=== PATIENT | male | born 1940 | race Caucasian/White ===

== ENCOUNTER → 2018-08-05 06:58 | Outpatient (CLI) | payer OTHER, SELFPAY ==
[2018-08-05 07:44] LABS: AST(SGOT) 20 U/L (15-37); Alanine Aminotransfer ALT/SGPT 23 U/L (16-61); Albumin, Serum 3.4 g/dL (3.2-5.0); Alkaline Phosphatase 72 U/L (45-117); Anion Gap 6 (5-15); BUN 19 mg/dL (7-18); BUN/Creat Ratio 13.9 RATIO (10-20); Bilirubin, Direct 0.34 mg/dL (0.00-0.30); Calcium,Total 8.9 mg/dL (8.5-10.1); Chloride 104 mmol/L (98-107); Cholesterol 168 mg/dL (200); Creatinine, Serum 1.37 mg/dL (0.70-1.30); EST Glomerular Filtration Rate 54 mL/min (>60); Est Glom Filt Rate - Afr Amer 65 mL/min (>60); Globulin 3.4 g/dL (2.2-4.2); Glucose 85 mg/dL (74-106); High Density Lipoprotein 41 mg/dL; Magnesium 2.1 mg/dL (1.6-2.6); PSA,Total - Annual Screen 4.38 ng/mL (0.00-4.00); Potassium 3.5 mmol/L (3.5-5.1); Protein, Total 6.8 g/dL (6.4-8.2); Sodium Level 143 mmol/L (136-145); Triglycerides 99 mg/dL; Very Low Density Lipoprotein 20 mg/dL (5-40)
== END ==
PROVIDERS: Family Provider Family Medicine; PCP Family Medicine; Referring Provider Internal Medicine Cardiovascular Disease; Visit Provider Internal Medicine Cardiovascular Disease
DX: E78.5 Hyperlipidemia, unspecified (principal); I10 Essential (primary) hypertension
CPT/HCPCS: 36415; 80048; 80061; 80076; 83735; 84153; G0103

== ENCOUNTER → 2018-08-07 07:44 | Outpatient (CLI) | payer OTHER, SELFPAY ==
--- NOTE | 2018-08-07 07:47 | ECHOD_ITS ---
Reason For Study: Arrhythmia Procedure This was a 2D Doppler, Color Flow transthoracic echocardiogram. Exam performed in department. Left Ventricle Normal LV size. Left ventricular systolic function is normal. The estimated ejection fraction is 65 %. Stage 1 diastolic dysfunction. No regional wall motion abnormalities noted. Right Ventricle Normal RV size. Normal systolic function. Atria Normal left atrium. Normal right atrium. Mitral Valve Normal mitral valve. Mild (1+) eccentric mitral valve insufficiency. Tricuspid Valve Normal tricuspid valve. Mild (1+) tricuspid valve insufficiency. Pulmonary artery systolic pressure is 24 mmHg. Aortic Valve Trisinus/trileaflet aortic valve. Mild focal aortic valve calcification. Pulmonic Valve Normal pulmonic valve. Great Vessels Normal aortic root. The pulmonary artery is normal size. Normal inferior vena cava. Pericardium/Pleural No pericardial effusion. MMode/2D Measurements & Calculations LVIDd: 4.6 cm IVSd: 1.2 cm Ao root diam: 3.5 cm LVIDs: 2.8 cm LVPWd: 1.0 cm LA dimension: 3.4 cm RVDd: 3.2 cm FS: 39.8 % LAV(MOD-bp): 49.9 ml LA A4 area: 15.2 cm2 RA A4 area: 16.9 cm2 LAV(MOD-bp) Indexed: 26.3 ml/m2 LAV(MOD-sp2): 70.2 ml LAV(MOD-sp4): 37.1 ml Time Measurements MV dec time: 0.24 sec Doppler Measurements & Calculations MV E max larry: 63.6 cm/sec Lat Peak E' Larry: 6.2 cm/sec Med Peak E' Larry: 7.7 cm/sec MV A max larry: 91.7 cm/sec E/E' lat: 10.3 E/E' med: 8.3 MV E/A: 0.69 MV V2 max: 92.5 cm/sec MV P1/2t max larry: 78.0 cm/sec Ao V2 max: 131.4 cm/sec MV max P.4 mmHg MV P1/2t: 82.4 msec Ao max P.9 mmHg MV V2 mean: 47.4 cm/sec MV dec slope: 277.4 cm/sec2 Ao V2 mean: 93.2 cm/sec MV mean P.0 mmHg MVA(P1/2t): 2.7 cm2 Ao mean P.8 mmHg MV V2 VTI: 30.4 cm Ao V2 VTI: 30.1 cm LV V1 max: 86.8 cm/sec MR max larry: 578.1 cm/sec PA V2 max: 79.9 cm/sec LV V1 max P.0 mmHg MR max P.7 mmHg LV V1 mean P.0 mmHg MR mean larry: 433.7 cm/sec LV V1 mean: 67.0 cm/sec MR mean P.1 mmHg LV V1 VTI: 24.2 cm MR VTI: 225.9 cm TR max larry: 215.7 cm/sec TR max P.6 mmHg Interpretation Summary Normal LV size. Left ventricular systolic function is normal. The estimated ejection fraction is 65 %. Stage 1 diastolic dysfunction. Pulmonary artery systolic pressure is 24 mmHg. Compared to prior study, there is no significant change. Ordering Physician: Nixon Restrepo Referring Physician: Nixon Restrepo Performed By: Roger Laws RCS
== END ==
PROVIDERS: Family Provider Family Medicine; PCP Family Medicine; Referring Provider Internal Medicine Cardiovascular Disease; Visit Provider Internal Medicine Cardiovascular Disease
DX: I10 Essential (primary) hypertension (principal); G47.33 Obstructive sleep apnea (adult) (pediatric)
CPT/HCPCS: 93306

== ENCOUNTER → 2018-08-28 09:30 | Outpatient (CLI) | payer OTHER, SELFPAY ==
--- NOTE | 2018-09-08 21:17 | LEAS ---
Arterial Study - Arterial Study Arterial Study: This is a 78-year-old male with a history of atrial fibrillation and hypertension. He presents with bilateral lower extremity pain with ambulation, suggestive of intermittent claudication. Suspecting the presence of atherosclerotic peripheral arterial occlusive disease, the patient was brought to the noninvasive vascular laboratory at this time for the purpose of bilateral noninvasive lower extremity arterial assessment. Doppler signal assessment was used to evaluate the pulses at ankle level bilaterally. The posterior tibial and dorsalis pedis pulses were triphasic bilaterally. Segmental limb pressures were obtained bilaterally. Ankle pressures, as determined by posterior tibial and dorsalis pedis pulses, could not be determined on either side due to the noncompressibility of the vasculature. The right digital pressure was measured at 150 mmHg. The left digital pressure was measured at 202 mmHg. Pulse?volume recordings were obtained bilaterally and segmentally. Waveform amplitudes appeared to be satisfactory at all levels bilaterally, including low thigh, calf, ankle, and digital levels. Resting ankle?brachial indices could not be calculated on either side due to the noncompressibility of the vasculature. Digital?brachial indices were calculated bilaterally. The right digital-brachial index was calculated to be 0.79. The left digital-brachial index was calculated to be 1.06. Impression: Based upon the findings of this resting noninvasive lower extremity arterial study, there is evidence of arterial calcification in the lower extremities bilaterally, appearing to render the arterial tree noncompressible at ankle level bilaterally. However, triphasic waveforms are noted at ankle level bilaterally. Resting ankle?brachial indices could not be calculated on either side due to the noncompressibility of the vasculature. Digital-brachial indices are bilaterally normal. It appears as though there is relatively normal arterial perfusion at digital level bilaterally.
--- NOTE | 2018-09-08 21:22 | LEAS_ITS ---
Arterial Study - Arterial Study Arterial Study: This is a 78-year-old male with a history of atrial fibrillation and hyp ertension. He presents with bilateral lower extremity pain with ambulation, suggestive of intermittent claudication. Suspecting the presence of atherosclerotic peripheral arterial occlusive disease, the patient was brought to the noninvasive vascular laboratory at this time for the purpose of bilateral noninvasive lower extremity arterial assessment. Doppler signal assessment was used to evaluate the pulses at ankle level bilaterally. The posterior tibial and dorsalis pedis pulses were triphasic bilaterally. Segmental limb pressures were obtained bilaterally. Ankle pressures, as determined by posterior tibial and dorsalis pedis pulses, could not be determined on either side due to the noncompressibility of the vasculature. The right digital pressure was measured at 150 mmHg. The left digital pressure was measured at 202 mmHg. Pulse?volume recordings were obtained bilaterally and segmentally. Waveform amplitudes appeared to be satisfactory at all levels bilaterally, including low thigh, calf, ankle, and digital levels. Resting ankle?brachial indices could not be calculated on either side due to the noncompressibility of the vasculature. Digital?brachial indices were calculated bilaterally. The right digital- brachial index was calculated to be 0.79. The left digital-brachial index was calculated to be 1.06. Impression: Based upon the findings of this resting noninvasive lower extremity arterial study, there is evidence of arterial calcification in the lower extremities bilaterally, appearing to render the arterial tree noncompressible at ankle level bilaterally. However, triphasic waveforms are noted at ankle level bilaterally. Resting ankle?brachial indices could not be calculated on either side due to the noncompressibility of the vasculature. Digital-brachial indices are bilaterally normal. It appears as though there is relatively normal arterial perfusion at digital level bilaterally.
== END ==
PROVIDERS: Family Provider Family Medicine; PCP Family Medicine; Referring Provider Family Medicine; Visit Provider Family Medicine
DX: I73.9 Peripheral vascular disease, unspecified (principal)
CPT/HCPCS: 93923

== ENCOUNTER → 2019-10-10 08:24 | Outpatient (CLI) | payer OTHER, SELFPAY ==
[2018-07-30 09:59] VITALS: BMI 23.3
[2019-10-10 10:21] LABS: Anion Gap 5 (5-15); BUN 20 mg/dL (7-18); BUN/Creat Ratio 13.9 RATIO (10-20); Chloride 106 mmol/L (98-107); Cholesterol 174 mg/dL (200); Creatinine, Serum 1.44 mg/dL (0.70-1.30); EST Glomerular Filtration Rate 51 mL/min (>60); Est Glom Filt Rate - Afr Amer 61 mL/min (>60); Glucose 98 mg/dL (74-106); High Density Lipoprotein 38 mg/dL; PSA,Total - Annual Screen 4.85 ng/mL (0.00-4.00); Potassium 3.6 mmol/L (3.5-5.1); Sodium Level 142 mmol/L (136-145); Triglycerides 128 mg/dL; Very Low Density Lipoprotein 26 mg/dL (5-40)
[2019-10-10 10:32] LABS: Vitamin D,25 Hydroxy 26.9 ng/mL (29.95-100.01)
== END ==
PROVIDERS: Family Provider Family Medicine; PCP Family Medicine; Referring Provider Family Medicine; Visit Provider Family Medicine
DX: Z00.00 Encounter for general adult medical examination without abnormal findings (principal); E55.9 Vitamin D deficiency, unspecified
CPT/HCPCS: 36415; 80048; 80061; 82306; 84153; G0103

== ENCOUNTER → 2020-01-09 07:37 | Outpatient (CLI) | payer OTHER, SELFPAY ==
[2019-11-06 08:37] VITALS: BMI 23.2
[2020-01-09 10:21] LABS: Vitamin D,25 Hydroxy 42.2 ng/mL
[2020-01-09 10:24] LABS: Anion Gap 5 (5-15); BUN 22 mg/dL (7-18); BUN/Creat Ratio 14.2 RATIO (10-20); Calcium,Total 8.8 mg/dL (8.5-10.1); Chloride 106 mmol/L (98-107); Creatinine, Serum 1.55 mg/dL (0.70-1.30); EST Glomerular Filtration Rate 46 mL/min (>60); Est Glom Filt Rate - Afr Amer 56 mL/min (>60); Glucose 93 mg/dL (74-106); Potassium 3.7 mmol/L (3.5-5.1); Sodium Level 140 mmol/L (136-145); Thyroid Stim Hormone (TSH) 5.19 uIU/mL (0.358-3.74)
== END ==
PROVIDERS: PCP Family Medicine; Referring Provider Family Medicine; Visit Provider Family Medicine
DX: I10 Essential (primary) hypertension (principal); E55.9 Vitamin D deficiency, unspecified
CPT/HCPCS: 36415; 80048; 82306; 84443

== ENCOUNTER → 2020-04-01 14:23 | Outpatient (CLI) | payer OTHER, SELFPAY ==
[2019-11-06 08:37] VITALS: BMI 23.2
[2020-04-01 18:07] LABS: Anion Gap 8 (5-15); BUN 23 mg/dL (7-18); BUN/Creat Ratio 16.5 RATIO (10-20); Calcium,Total 8.9 mg/dL (8.5-10.1); Chloride 107 mmol/L (98-107); Creatinine, Serum 1.39 mg/dL (0.70-1.30); EST Glomerular Filtration Rate 53 mL/min (>60); Est Glom Filt Rate - Afr Amer 64 mL/min (>60); Glucose 95 mg/dL (74-106); Potassium 3.9 mmol/L (3.5-5.1); Sodium Level 142 mmol/L (136-145)
== END ==
PROVIDERS: PCP Family Medicine; Referring Provider Family Medicine; Visit Provider Family Medicine
DX: I10 Essential (primary) hypertension (principal); E03.9 Hypothyroidism, unspecified
CPT/HCPCS: 36415; 80048; 84443

== ENCOUNTER → 2020-10-08 08:24 | Outpatient (CLI) | payer OTHER, SELFPAY ==
[2019-11-06 08:37] VITALS: BMI 23.2
[2020-10-08 10:48] LABS: Anion Gap 4 (5-15); BUN 22 mg/dL (7-18); BUN/Creat Ratio 15.1 RATIO (10-20); Calcium,Total 9.2 mg/dL (8.5-10.1); Chloride 107 mmol/L (98-107); Cholesterol 188 mg/dL (200); Creatinine, Serum 1.46 mg/dL (0.70-1.30); EST Glomerular Filtration Rate 50 mL/min (>60); Est Glom Filt Rate - Afr Amer 60 mL/min (>60); Free T3 2.5 pg/mL (2.18-3.98); Glucose 85 mg/dL (74-106); High Density Lipoprotein 37 mg/dL; Potassium 3.9 mmol/L (3.5-5.1); Sodium Level 141 mmol/L (136-145); T4 Total, Thyroxin 10.3 ug/dL (4.5-12.1); Thyroid Stim Hormone (TSH) 3.64 uIU/mL (0.358-3.74); Triglycerides 134 mg/dL; Very Low Density Lipoprotein 27 mg/dL (5-40)
== END ==
PROVIDERS: PCP Family Medicine; Referring Provider Family Medicine; Visit Provider Family Medicine
DX: I10 Essential (primary) hypertension (principal); E03.9 Hypothyroidism, unspecified
CPT/HCPCS: 36415; 80048; 80061; 84436; 84443; 84481

== ENCOUNTER → 2021-05-17 08:24 | Outpatient (CLI) | payer OTHER, SELFPAY ==
[2019-11-06 08:37] VITALS: BMI 23.2
[2021-05-17 10:46] LABS: Microalbumin,Random Urine 46.7 mg/L (NO RANGE EST.)
[2021-05-17 10:51] LABS: Anion Gap 4 (5-15); BUN 19 mg/dL (7-18); BUN/Creat Ratio 13.8 RATIO (10-20); Calcium,Total 8.9 mg/dL (8.5-10.1); Chloride 105 mmol/L (98-107); Cholesterol 188 mg/dL (200); Creatinine, Serum 1.38 mg/dL (0.70-1.30); EST Glomerular Filtration Rate 53 mL/min (>60); Est Glom Filt Rate - Afr Amer 64 mL/min (>60); Free T3 2.8 pg/mL (2.18-3.98); Glucose 92 mg/dL (74-106); High Density Lipoprotein 35 mg/dL; Potassium 4.1 mmol/L (3.5-5.1); Sodium Level 139 mmol/L (136-145); T4 Free Direct 1.16 ng/dL (0.76-1.46); Triglycerides 129 mg/dL; Very Low Density Lipoprotein 26 mg/dL (5-40)
== END ==
PROVIDERS: PCP Family Medicine; Referring Provider Family Medicine; Visit Provider Family Medicine
DX: I10 Essential (primary) hypertension (principal); E03.9 Hypothyroidism, unspecified
CPT/HCPCS: 36415; 80048; 80061; 82043; 84439; 84443; 84481

== ENCOUNTER → 2021-10-04 08:09 | Outpatient (CLI) | payer OTHER, SELFPAY ==
[2021-10-04 10:30] LABS: Anion Gap 4 (5-15); BUN 22 mg/dL (7-18); BUN/Creat Ratio 16.4 RATIO (10-20); Calcium,Total 8.9 mg/dL (8.5-10.1); Chloride 109 mmol/L (98-107); Cholesterol 190 mg/dL (200); Creatinine, Serum 1.34 mg/dL (0.70-1.30); EST Glomerular Filtration Rate 55 mL/min (>60); Est Glom Filt Rate - Afr Amer 66 mL/min (>60); Free T3 2.5 pg/mL (2.18-3.98); Glucose 93 mg/dL (74-106); High Density Lipoprotein 39 mg/dL; Potassium 3.7 mmol/L (3.5-5.1); Sodium Level 142 mmol/L (136-145); T4 Free Direct 1.05 ng/dL (0.76-1.46); Thyroid Stim Hormone (TSH) 4.37 uIU/mL (0.358-3.74); Triglycerides 107 mg/dL; Very Low Density Lipoprotein 21 mg/dL (5-40)
[2021-10-05 16:19] LABS: SAR-COV-2 IGM ANTIBODY Negative (Negative)
== END ==
PROVIDERS: PCP Family Medicine; Visit Provider Family Medicine
DX: E03.9 Hypothyroidism, unspecified (principal); I10 Essential (primary) hypertension
CPT/HCPCS: 36415; 80048; 80061; 84439; 84443; 84481; 86769

== ENCOUNTER 2021-12-08 11:25 | Outpatient (CLI) | payer OTHER, SELFPAY ==
[2021-12-08 15:44] LABS: Anion Gap 5 (5-15); BUN 19 mg/dL (7-18); BUN/Creat Ratio 14.4 RATIO (10-20); Calcium,Total 9.7 mg/dL (8.5-10.1); Chloride 104 mmol/L (98-107); Creatinine, Serum 1.32 mg/dL (0.70-1.30); EST Glomerular Filtration Rate 56 mL/min (>60); Est Glom Filt Rate - Afr Amer 67 mL/min (>60); Glucose 94 mg/dL (74-106); Potassium 4.3 mmol/L (3.5-5.1); Sodium Level 137 mmol/L (136-145)
== END 2021-12-08 23:59 | disposition home or self-care (01) ==
LOC: MFPLAB 11:26
PROVIDERS: PCP Family Medicine; Referring Provider Family Medicine; Visit Provider Family Medicine
DX: I10 Essential (primary) hypertension (principal)
CPT/HCPCS: 36415; 80048

== ENCOUNTER → 2022-04-04 | Outpatient (CLI) | payer OTHER, SELFPAY ==
[2022-04-04 10:38] LABS: Anion Gap 5 (5-15); BUN 22 mg/dL (7-18); Calcium,Total 9.3 mg/dL (8.5-10.1); Chloride 109 mmol/L (98-107); Cholesterol 190 mg/dL (200); Creatinine, Serum 1.47 mg/dL (0.70-1.30); EST Glomerular Filtration Rate 49 mL/min (>60); Est Glom Filt Rate - Afr Amer 59 mL/min (>60); Free T3 2.7 pg/mL (2.18-3.98); Glucose 90 mg/dL (74-106); High Density Lipoprotein 40 mg/dL; Potassium 3.8 mmol/L (3.5-5.1); Sodium Level 143 mmol/L (136-145); T4 Free Direct 1.14 ng/dL (0.76-1.46); Thyroid Stim Hormone (TSH) 3.18 uIU/mL (0.358-3.74); Triglycerides 93 mg/dL; Very Low Density Lipoprotein 19 mg/dL (5-40)
== END | disposition home or self-care (01) ==
LOC: MFPLAB 08:32
PROVIDERS: PCP Family Medicine; Referring Provider Family Medicine; Visit Provider Family Medicine
DX: E03.9 Hypothyroidism, unspecified (principal); I10 Essential (primary) hypertension
CPT/HCPCS: 36415; 80048; 80061; 84439; 84443; 84481

== ENCOUNTER → 2022-05-04 | Outpatient (CLI) | payer OTHER, SELFPAY ==
--- NOTE | 2022-05-04 10:51 | ECHOD_ITS ---
Reason For Study: MURMUR Procedure This was a 2D Doppler, Color Flow transthoracic echocardiogram. Exam performed in department. Left Ventricle Normal LV size. Left ventricular systolic function is normal. The estimated ejection fraction is 60 %. Stage 1 diastolic dysfunction. No regional wall motion abnormalities noted. Right Ventricle Normal size and thickness. Normal systolic function. Atria Normal left atrium. Normal right atrium. Mitral Valve Normal mitral valve. Tricuspid Valve Normal tricuspid valve. Mild tricuspid valve insufficiency. Pulmonary artery systolic pressure is 26 mmHg. Aortic Valve Trisinus/trileaflet aortic valve. Mild focal aortic valve calcification. Pulmonic Valve Normal pulmonic valve. Great Vessels Normal aortic root. The pulmonary artery is normal size. Normal inferior vena cava. Pericardium/Pleural No pericardial effusion. MMode/2D Measurements & Calculations LVIDd: 5.1 cm IVSd: 0.82 cm Ao root diam: 3.6 cm LVIDs: 3.0 cm LVPWd: 0.81 cm RVDd: 3.2 cm FS: 40.8 % LAV(MOD-bp): 57.2 ml LVAd ap4: 27.0 cm2 SV(MOD-sp4): 50.4 ml LAV(MOD-bp) Indexed: 30.1 ml/m2 LVLd ap4: 8.0 cm LAV(MOD-sp2): 72.9 ml EDV(MOD-sp4): 76.1 ml LAV(MOD-sp4): 43.3 ml EDV(sp4-el): 77.3 ml LVAs ap4: 13.8 cm2 LVLs ap4: 6.8 cm ESV(MOD-sp4): 25.7 ml ESV(sp4-el): 23.9 ml EF(MOD-sp4): 66.3 % EF(sp4-el): 69.1 % SV(sp4-el): 53.4 ml LA A4 area: 17.0 cm2 LA dimension(2D): 3.3 cm RA A4 area: 12.3 cm2 Time Measurements MV dec time: 0.40 sec Doppler Measurements & Calculations MV E max saira: 50.1 cm/sec MV V2 max: 88.2 cm/sec MV dec slope: 142.1 cm/sec2 MV A max saira: 89.3 cm/sec MV max P.1 mmHg MV E/A: 0.56 MV V2 mean: 41.5 cm/sec MV mean P.83 mmHg MV V2 VTI: 25.3 cm Ao V2 max: 148.7 cm/sec LV V1 max: 92.7 cm/sec PA V2 max: 98.4 cm/sec Ao max P.0 mmHg LV V1 max P.4 mmHg Ao V2 mean: 101.9 cm/sec LV V1 mean P.7 mmHg Ao mean P.8 mmHg LV V1 mean: 61.6 cm/sec Ao V2 VTI: 35.1 cm LV V1 VTI: 19.4 cm TR max saira: 236.8 cm/sec TR max P.4 mmHg ECHO/Echo Complete Interpretation Summary Normal LV size. Left ventricular systolic function is normal. The estimated ejection fraction is 60 %. Stage 1 diastolic dysfunction. Compared to previous study, the left ventricular systolic function is the same. . Ordering Physician: Nixon Restrepo Referring Physician: Nixon Restrepo Performed By: Magda Dyer RCS
--- NOTE | 2022-05-04 11:32 | CT_ITS ---
STUDY: CT CHEST, ABDOMEN T PELVIS WITH CONTRAST REASON FOR EXAM: Male, 82 years old. BRADYCARDIA RADIATION DOSAGE (If Supplied By Facility): CTDIvol = ( 14.47 ) mGy, DLP = ( 1197.42 ) mGycm TECHNIQUE: Transaxial imaging was performed following intravenous administration of IV 100mL Isovue-370. Multiplanar coronal and sagittal images were reformatted. Individualized dose optimization techniques were used for this CT. COMPARISON: Comparison is made with prior CT scan of abdomen and pelvis dated 11/08/2021. FINDINGS: CHEST Small benign-appearing bilateral axillary lymph nodes. Mild increased interstitial markings at the lung bases suggestive of scarring. There is no demonstrated pleural abnormality. There are calcifications of the coronary arteries. Normal mediastinum. Normal hilar regions. Normal unenhanced pulmonary arteries. There is atherosclerotic calcification of the aortic arch with tortuosity and elongation of the aortic arch and descending thoracic aorta. There are multi-level degenerative changes of the thoracic spine. ABDOMEN There is decreased attenuation of the liver consistent with steatosis. The patient is status post cholecystectomy. Normal spleen. Normal pancreas. Normal bilateral adrenal glands. Stable right parapelvic cysts. Stable cysts in the cortical region of the right kidney. Once again, the large left heterogeneous renal mass involving the mid and lower pole region of the left kidney. There is evidence of atrophy of the upper pole of the left kidney. There is a 3.9 cm cyst along the lateral aspect of the left kidney with rim-like calcification. Stable left parapelvic cyst with 1.3 cm calculus in the region of the left renal pelvis. There is a small hiatal hernia. Normal small intestine. There are multiple colonic diverticula consistent with diverticulosis. The appendix is visualized and appears normal. There is diffuse atherosclerotic calcification of the abdominal aorta, without a demonstrated aneurysm. Normal inferior vena cava. Normal retroperitoneum. Normal abdominal wall. There are diffuse degenerative changes of the visualized lumbar spine. PELVIS Normal urinary bladder. There is diffuse atherosclerotic calcification of the pelvic arteries. CT/CT Chest, Abd, Pel w/Contrast IMPRESSION: Stable examination. Electronically Signed: Nahun Matos MD at 12:37 EDT ,
== END | disposition home or self-care (01) ==
PROVIDERS: PCP Family Medicine; Referring Provider Internal Medicine Cardiovascular Disease; Visit Provider Internal Medicine Cardiovascular Disease
DX: D41.02 Neoplasm of uncertain behavior of left kidney (principal); I48.0 Paroxysmal atrial fibrillation; R01.1 Cardiac murmur, unspecified; I10 Essential (primary) hypertension
CPT/HCPCS: 71260; 74177; 93306; Q9967

== ENCOUNTER 2022-05-10 10:32 | Inpatient (IN) | payer OTHER, MEDICARE, SELFPAY ==
--- NOTE | 2022-05-08 08:56 | EKG12_ITS ---
Test Reason : PRE-OP Blood Pressure : / mmHG Vent. Rate : 060 BPM Atrial Rate : 060 BPM P-R Int : 160 ms QRS Dur : 130 ms QT Int : 492 ms P-R-T Axes : 067 011 030 degrees QTc Int : 492 ms Sinus rhythm with occasional Premature ventricular complexes Right bundle branch block Abnormal ECG Confirmed by DWAYNE PRINCE, MADDIE ([id number]), news editor JOURDAN CHEN ([id number]) on 05/08/2022 10:55:24 AM Referred By: Matthew Lopez Confirmed By:MADDIE RICE MD
[2022-05-08 10:49] LABS: Hematocrit 44.3 % (40-54); Mean Corp Hgb Conc 33.9 g/dL (32-36); Mean Corpuscular Hgb 30.4 pg (27.0-32.0); Mean Corpuscular Volume 89.7 fL (80-94); Platelet Count 252 K/mm3 (150-450); RBC Distribution Width CV 14.1 % (11.6-14.6); RBC Distribution Width SD 46.2 fl (35.1-43.9); Red Blood Count 4.94 M/mm3 (4.6-6.2)
[2022-05-10] VITALS (14 sets, daily range): BP systolic 126–192; BP diastolic 56–96; PULSE 53–75; RESP 16–18; TEMP 35.8–37.2; O2SAT 94–100; BMI 23.1
[2022-05-10] MEDS: Lactated Ringers 1,000 ML 15 ML IV ×2 (06:28→10:45)
[2022-05-10] MEDS: Cefazolin 2 GM in 0.9% Normal Saline 100 ML IV (07:30)
--- NOTE | 2022-05-10 07:30 | KI_PTH ---
PATIENT: MAGUI TORRES LOC: MS3 U#:[id number] AGE/SX: 82/M ROOM: [facility] [place] RE05/10/[address]: Dr. Matthew Lopez MD : [id number] BED: 1 DIS: 05/12/2022 SPEC #: [id number] RECD: 05/10/22 10:45 STATUS: LOUIE VASQUEZ #: [id number] BRAD: 05/10/22 07:[address]: Matthew Lopez DEPT: SURGICAL PATHOLOGY RECD BY: Alie Trujillo ENTERED: 05/10/22 11:01 SP TYPE: KIDNEY BX OTHR DR: Dr. 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 See cancer ramiro below. AM:briseida 05/12/2022 COMMENT KIDNEY CANCER SUMMARY Procedure ? Radical nephrectomy Specimen laterality ? left kidney Tumor size ? 11.5 x 9 x 7 cm Tumor focality ? single focus of carcinoma Histologic type ? clear cell renal cell carcinoma Sarcomatoid features ? not identified Rhabadoid features ? not identified Histologic grade - Adry 2/4 Tumor necrosis - present Tumor extension ? tumor confined to kidney Margins ? uninvolved by invasive carcinoma. Lymphvascular invasion ? not identified Regional lymph nodes ? no lymph nodes found. Non-neoplastic kidney ? mild arterionephrosclerosis and focal microcalcifications PATHOLOGIC STAGE: T2b Nx Mx The above summary is in compliance with [employer] [place] [employer] (CAP) Cancer Protocols Checklist and [place] Joint Committee on Cancer (AJCC), Staging Manual, 8th Ed. MICROSCOPIC DESCRIPTION Slides are reviewed. GROSS DESCRIPTION Received in fixative is one container labeled with the patient's name and designated left kidney. The specimen consists of a kidney surrounded by yellow fibrofatty tissue measuring in aggregate 21 x 13 x 11 cm. A 10 cm segment of ureter is attached. An adrenal gland is present measuring 4.5 x 2.5 x 1 cm and is grossly unremarkable. A kidney is present measuring 12 x 9 x 7.5 cm and greater than 90% of kidney is involved by a roughly spherical mass composed of yellow, sosa, brown and chalky white areas including cysts measuring 11.5 x 9 x 7 cm. No lymph nodes are encountered. The mass is contained within the kidney. Dissection of the veins, particularly those draining the area of the mass does not show intravascular presence of neoplasm. The specimen as whole weighs 1280 gm. The tumor appears to be sharply demarcated from the involved portions of kidney. No lymph nodes are encountered. The tumor does not appear to extend into the perinephric fatty tissue and does not appear to involve the renal pelvis or the renal sinus, grossly. 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 / AM:briseida 05/11/2022 TC:0 CPT: 86207 ADDENDUM ADDENDUM ADDENDUM ADDENDUM 05/16/2022 10:10 ADDENDUM 05/16/2022 10:10 ADDENDUM 05/16/2022 10:10 ADDENDUM 05/16/2022 10:10 ADDENDUM 05/16/2022 10:10 Adrenal gland shows no pathologic change. AM:briseida 05/16/2022
[2022-05-10] MEDS: Bupivacaine 0.25% 30 ML Vial (08:10)
--- NOTE | 2022-05-10 10:35 | PCM.HP.STD ---
HPI - General General Date of Admission: 05/10/22 Chief Complaint: Large left renal mass HPI Narrative ANATOLIY TORRES, is a 82 M who presents for a left radical nephrectomy for a large left renal mass [facility], [facility] Medical History (Updated 05/10/22 @ 10:[address] Matthew Lopez MD) Arthritis Back pain Cancer Cardiology follow-up encounter Chest pain Chewing tobacco nicotine dependence Dietary restriction Essential (primary) hypertension GI bleed Heartburn History of diverticulitis History of echocardiogram History of pain when walking History of renal disease History of stress test Hyperlipidemia Hypertension Injury of head and neck Loss of hearing Paroxysmal atrial fibrillation Prostate disease Thyroid disease TIA (transient ischemic attack) Wears glasses Home Medications multivitamin 1 tab PO DAILY 07/26/18 [History Last Taken Unknown] saw palmetto 1,000 mg capsule 1,000 mg PO DAILY 07/26/18 [History Last Taken Unknown] hydrochlorothiazide 25 mg tablet 25 mg PO QAM #90 tabs 03/28/21 [Rx Last Taken Unknown] atenolol 25 mg tablet 25 mg PO DAILY 04/25/22 [History Last Taken 05/10/22 04:30] cholecalciferol (vitamin D3) 25 mcg/drop (1,000 unit/drop) oral drops 25 mcg PO DAILY 04/25/22 [History Last Taken Unknown] levothyroxine 50 mcg tablet 50 mcg PO DAILY 04/25/22 [History Last Taken 05/10/22 04:30] docusate sodium 100 mg capsule (Colace) 100 mg PO BID #20 caps 05/10/22 [Rx Last Taken Unknown] oxycodone-acetaminophen 5 mg-325 mg tablet 1 tab PO Q6H PRN pain 7 days #14 tabs 05/10/22 [Rx Last Taken Unknown] Allergy/AdvReac Type Severity Reaction Status Date / Time amoxicillin AdvReac Nausea/vomi Verified 05/10/22 06:20 ting lisinopril AdvReac Headaches Verified 05/10/22 06:20 Family History Father Myocardial infarction from [place] age 56 Mother Heart disease CHF Grandfather Myocardial infarction from [place] age 53 Surgical History (Updated 05/08/22 @ 08:47 by Sharri Gilman) History of appendectomy History of nasal septoplasty Hx laparoscopic cholecystectomy Hx of colonoscopy Hx of hand surgery Social History Smoking Status: Current some day smoker tobacco type: cigarettes, pipe and smokeless tobacco how long ago did patient quit smokin alcohol intake: never substance use type: does not use caffeine: Yes Type: coffee Number of servings: 2, tea Number of servings: 2 and other Vital Signs Vital Signs Vital Signs: 05/10/22 06:25 05/10/22 06:25 Temperature 97.8 F Temperature Source Temporal Pulse Rate 54 L Respiratory Rate 16 Respiratory Pattern Normal Blood Pressure 166/85 H Blood Pressure Mean 112 Blood Pressure Source Monitor Blood Pressure Position Semi-Fowlers Blood Pressure Location Left Arm Pulse Ox 100 Oxygen Delivery Method Room Air Weight Weight: 73 kg Body Mass Index (BMI) 23.1 Results Lab / Micro Data Result Diagrams: 05/08/22 09:16
--- NOTE | 2022-05-10 10:36 | DCINST_ITS ---
Discharge Instructions Diet Discharge Diet: No restrictions, Light diet - advance as tolerated and Soft diet Activity Discharge Activity: May Not Drive Return to work on:: 06/21/22 May shower in (days): 1 Dressing / Incision Call your doctor if your incision/area has: Increased Pain/ Swelling Call your doctor if you observe: Fever of 101 or Higher Cleanse incision/area with: Keep Dressing Clean & Dry Follow Up Care Please Follow Up With: Matthew Lopez MD When: 2 weeks Test Results: Test results from this visit will be discussed in further detail at your follow- up appointment, if applicable. Discharge Plan Admission Primary Reason for Your Visit: robotic left nephrectomy Attending Provider: Matthew Lopez Primary Care Provider: Brayden Balderrama Instructions Patient Instructions: Discharge Instructions for ... Discharge Orders/Prescriptions Prescriptions: New docusate sodium [Colace] 100 mg capsule 100 mg PO BID Qty: 20 0RF oxycodone-acetaminophen 5-325 mg tablet 1 tab PO Q6H PRN (Reason: pain) 7 Days Qty: 14 0RF Continued saw palmetto 1,000 mg capsule 1,000 mg capsule 1,000 mg PO DAILY multivitamin tablet 1 tab PO DAILY cholecalciferol (vitamin D3) 25 mcg/drop ( 1,000 unit/drop) drops 25 mcg PO DAILY atenolol 25 mg tablet 25 mg PO DAILY levothyroxine 50 mcg tablet 50 mcg PO DAILY Label Comments: take 1 tablet by mouth every morning hydrochlorothiazide 25 mg tablet 25 mg PO QAM Qty: 90 3RF Discontinued aspirin [Adult Aspirin Regimen] 81 mg tablet,delayed release (DR/EC) 81 mg PO DAILY Referrals / Follow Up: Matthew Lopez MD [STAFF PHYSICIAN] - Brayden Balderrama MD [Primary Care Provider] - Disposition Disposition (needs filled in before D/C Order can be placed): Home, Self Care
--- NOTE | 2022-05-10 10:37 | OP.PCM_ITS ---
Report of Operation Date of Procedure: 05/10/22 Pre-Operative Diagnosis: Large left renal mass Post-Operative Diagnosis: same Surgery/Procedure Performed:: left laparoscopic radical nephrectomy Description of Surgical Findings:: Patient presented to [facility] for a laparoscopic robotic assisted radical left nephrectomy. We talked about the options of management for the patient's renal mass. The patient had a renal mass < 15cm in size. We discussed with the patient that there is always a possible metastatic disease development after this procedure and the patient understands that more treatments such as chemotherapy or oral chemotherapy may be necessary for further development of metastatic disease which may not be curable. We discussed the risks of the procedure including the risk of general anesthetic, bleeding, infection, blood transfusion, formation of hernias, recurrence of cancer in the local area, development of lymphoceles, chylous ascites, and lymph fluid collection in the renal bed. After full discussion with the patient, the patient was marked, and the patient was taken back to the operating room. Patient was taken back to the operating room was placed for supine on the table and underwent general endotracheal intubation. A Shah catheter was placed into the bladder. The patient side was recognized and marked. A timeout procedure was performed. I identified the patient the side of the surgery and the surgery that was planned to be performed. Once the patient was under general anesthetic then the patient was placed in modified lateral flank position on the patient and I had the patient's Left side up was going to proceed with a radical nephrectomy. I then infiltrated the skin with 1/2 percent Marcaine and a small incision in the skin and use a Veress needle to introduce the Veress needle into the peritoneal cavity and filled the peritoneal cavity with CO2 gas. I then placed the camera trocar under direct visualization. I then placed a right arm robotic trocar. Then scissors were used to dissect any adhesions. And then the left arm trocar was placed and a fourth robotic trocar was placed. After the trochars were placed I placed an air seal port between the #1 arm and the camera for the assistant superintendent for curriculum to use during the case. Then the robot was docked and I placed scissors and prograsp and the robotic arms and proceeded first by incising the white line of Toldt and reflecting the colon off the kidney I started superiorly above the kidney reflecting the spleen of the kidney and worked all the way inferiorly after the colon was completely reflected off the kidneys fascia was grabbed and elevated and we started reflecting the mesentery of the colon off the kidney until I was able to get underneath the kidney and the inferior tail of the Gerota's fascia and I could see the gonadal vein and the ureter I went underneath the gonadal vein and the ureter and then start tracing up towards the hilum of the kidney. At this point then the fourth arm was docked and used the long Fenestrated grasper on the fourth arm to allow retraction of the kidney superiorly this allowed me to use the right and left arm to then continue the meticulous dissection toward the renal hilum it came across the gonadal vein and this was taken with clips. I dissected until I encounted the renal vein and saw bound pulse of the renal aretery. Then behind the renal vein I dissected extensive and meticulous dissection was done to identify the main renal artery and was taken with clips with 2 clips down and one clip up and transected. After this meticulous dissection I made sure all the arterial inflow was taken and then the renal vein was nice and lax and then I placed 2 clips down to 1 clips up in the renal vein and transected the vein, then went superiorly and dissected between the spleen and the Gerota's fascia all the way superiorly. I then reflected the kidney off the lateral wall with electrocautery using such sharp dissection all the way down to the tail of the Gerota's fascia then came across the Gerota's fascia with an Endo ROSARIO staple to staple the gonadal vein and the ureter and the fat and the inferior portion of the tail of the stake driver's fascia then the kidney was further reflected off the lateral sidewall working away all the way superiorly until I reached the upper part of the kidney and used clips generously to control lymphatics and any small perforating blood vessels. Then finally the entire kidney within the throat fascia was free. At this point the robot was undocked. I then scrubbed in at the bedside and via the inferior fourth arm robotic trocar I placed a 15 mm Endo Catch bag but the tumor/kidney would not fit in the bag because it was too big so I extended the extraction site and carefully manually removed the tumor. The extraction site was then closed with 0 Vicryl in 2 layers. I then reinspected the hilum of the dissection and there was no bleeding and no significant accumulation of blood within the abdominal cavity I irrigated the abdomen copiously to ensure no bleeding. Then I closed our camera trocar with a Shailesh Reis stitch and then a closer air seal port trocar with a Shailesh Reis stitch. Then the pneumoperitoneum was released and the and all the incisions were closed in 2 layers with 4-0 Monocryl stitches. Sponges and needles were accounted for. Patient's anesthetic was reversed and extubated and taken to the PACU in stable condition blood loss was minimal. Surgeon: Matthew Lopez Type of Anesthesia: General Drains: none Estimated Blood Loss (mL): 50cc Complications none
--- NOTE | 2022-05-10 16:30 | SUR.PHASEII ---
VERBAL REPORT GIVEN TO MS[facility] CHARGE.
[2022-05-10] MEDS: Morphine 2 MG/ML Syringe IV (16:50)
[2022-05-10] MEDS: 0.9% Saline Lock 10 ML Syringe IV (16:51)
[2022-05-11 02:28] VITALS: BP 161/74; PULSE 68; RESP 18; TEMP 37.4; O2SAT 97
[2022-05-11] MEDS: Acetaminophen 500 MG Tablet PO ×2 (02:36→16:28)
[2022-05-11] MEDS: Levothyroxine 50 MCG Tablet PO (05:49)
--- NOTE | 2022-05-11 07:40 | PN.URO_ITS ---
Subjective Subjective Status post left radical nephrectomy. Very large renal mass. He is doing well today urinating, tolerating food, has been out of bed once. Stillness to get around so today encouraged him to get out of bed and do some walking I think he will be ready for discharge by tomorrow pain is under control with oral medica tion. Objective Data Objective Data Vital Signs: Vital Signs Temp Pulse Resp BP Pulse Ox O2 Del Method O2 Flow Rate 99.4 F H 68 18 161/74 H 97 Room Air 6 05/11/22 02:28 05/11/22 02:28 05/11/22 02:28 05/11/22 02:28 05/11/22 02:05/11/22 02:05/10/22 12:00 Oxygen Flow Rate (L/min) 6 Oxygen Delivery Method Room Air Weight: 73 kg Body Mass Index (BMI) 23.1 Intake & Output: Intake and Output for Last 24 Hours 05/09/22 05/10/22 05/11/22 23:59 23:59 23:59 Intake Total 3590 / 3890 700 / 700 Output Total 250 / 650 1000 / 1000 Balance 3340 / 3240 -300 / -300 Lab / Micro Data Result Diagrams: 05/08/22 09:16
[2022-05-11 07:59] VITALS: BP 174/78; PULSE 60; RESP 18; TEMP 37.1; O2SAT 95
[2022-05-11] MEDS: Atenolol 25 MG Tablet PO (08:03)
[2022-05-11] MEDS: Cholecalciferol (VIT D3) 25 MCG TABLET (1,000 UNITS) PO (08:03)
[2022-05-11] MEDS: hydroCHLOROthiazide 25 MG Tablet PO (08:04)
[2022-05-11] MEDS: 0.9% Saline Lock 10 ML Syringe IV ×2 (08:04→11:23)
--- NOTE | 2022-05-11 10:20 | CASEMGMT ---
RN CM Face to Face with patient for initial transition planning/care coordination assessment. RN CM introduced self and role at [facility]. Patient lying in bed, alert and oriented. Patient willing to participate in assessment and is able to answer all questions appropriately. Care providers, pharmacy, and demographics verified. Patient wishes to discharge home, denies need for home health at this time. Patient states he has no further needs or concerns at this time. CM to follow for discharge planning needs that may arise. PCP: [facility] Specialists: John, urologist; Lauro, winder hand Preferred Pharmacy: [facility] Insurance: [employer] Prescription Benefit: yes Living Will/HPOA: yes, Nilsa Dickens, HPOA LNOK: Living Arrangements: Patient lives with in 2 story home. Patient states he is independent and able to ambulate stairs. 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 Transportation: self, DME/HHC: patient states he has cane and raised toilet. Patient denies previous HHC or SNF Disposition Plan: Patient to discharge home with family support and follow-up plans in place. Ambika SCHWAB, RN, CM
[2022-05-11 14:21] VITALS: BP 157/78; PULSE 65; RESP 18; TEMP 36.6; O2SAT 96
[2022-05-11 20:15] VITALS: BP 180/86; PULSE 67; RESP 16; TEMP 36.8; O2SAT 96
[2022-05-11 21:30] VITALS: BP 172/82
[2022-05-12 02:30] VITALS: BP 180/85; PULSE 62; RESP 16; TEMP 36.7; O2SAT 94
[2022-05-12] MEDS: Acetaminophen 500 MG Tablet PO ×3 (02:49→11:02)
[2022-05-12 06:00] VITALS: BP 170/73
[2022-05-12] MEDS: Levothyroxine 50 MCG Tablet PO (06:04)
[2022-05-12 08:16] VITALS: BP 149/75; PULSE 65; RESP 18; TEMP 36.8; O2SAT 97
[2022-05-12] MEDS: Atenolol 25 MG Tablet PO (08:27)
[2022-05-12] MEDS: Cholecalciferol (VIT D3) 25 MCG TABLET (1,000 UNITS) PO (08:27)
[2022-05-12] MEDS: hydroCHLOROthiazide 25 MG Tablet PO (08:28)
--- NOTE | 2022-05-12 10:38 | PCM.DC.SUM ---
Providers Date of Admission: 05/10/22 Primary Care Physician: Dr. Brayden Balderrama MD Reason For Visit: LAP ROBOTIC RADICAL NEPHRECTOMY Diagnosis Discharge Diagnosis (1) Cancer: Status: Acute Code(s): C80.1 - Malignant (primary) neoplasm, unspecified Plan large left renal mass Medications at Discharge Home Medications multivitamin 1 tab PO DAILY 07/26/18 saw palmetto 1,000 mg capsule 1,000 mg PO DAILY 07/26/18 hydrochlorothiazide 25 mg tablet 25 mg PO QAM #90 tabs 03/28/21 atenolol 25 mg tablet 25 mg PO DAILY 04/25/22 cholecalciferol (vitamin D3) 25 mcg/drop (1,000 unit/drop) oral drops 25 mcg PO DAILY 04/25/22 levothyroxine 50 mcg tablet 50 mcg PO DAILY 04/25/22 docusate sodium 100 mg capsule (Colace) 100 mg PO BID #20 caps 05/10/22 oxycodone-acetaminophen 5 mg-325 mg tablet 1 tab PO Q6H PRN pain 7 days #14 tabs 05/10/22 Hospital Course Summary of Care Provided Hospital Course: s/p radical nephrectomy discharge on pod #2 in good condition althea reg diet, ambulating, pain controlled Physical Exam Const alert and oriented x3 General Appearance: cooperative HEENT normocephalic, head/scalp atraumatic, EAC's normal and TM's normal bilaterally Eyes PERRL and EOMs intact bilaterally Pupil: sluggish Neck no lymphadenopathy, supple and no JVD General: trachea midline Lymph Lymphatic: no lymphadenopathy noted, lymphedema and lymphadenopathy Resp normal respiratory effort, normal air movement and clear to auscultation bilaterally Cardio regular rate, regular rhythm and peripheral pulses 2+ throughout GI soft to palpation, non-tender and non-distended Extremity normal capillary refill and no clubbing, cyanosis or edema General Extremity: no tenderness to palpation of joints or extremities Skin no rashes or lesions noted General Skin Exam: turgor normal Lesions: no lesions Rashes: no rashes Neuro CN's II-XII intact bilaterally Speech: speech normal Motor Exam: strength 5/5 throughout; Negative for general weakness Psych thought process normal, cooperative and affect normal Appearance: appropriate Weight / BMI Weight Weight: 73 kg Body Mass Index (BMI) 23.1 ABG / Lab / Microbiology Data Result Diagrams: 05/08/22 09:16 D/C Instructions Discharge Diet: No restrictions, Light diet - advance as tolerated and Soft diet Return to work on: 06/21/22 May shower in (days): 1 Call your doctor if your incision/area has: Increased Pain/ Swelling Call your doctor if you observe: Fever of 101 or Higher Cleanse incision/area with: Keep Dressing Clean & Dry Please Follow Up With: Matthew Lopez MD When: 2 weeks Meaningful Use Info Meaningful Use Diagnoses (Choose all that apply): None applicable Discharge Plan Admission Admit Date/Time: 05/10/22 10:32 Primary Reason for Your Visit: robotic left nephrectomy Attending Provider: Matthew Lopez Primary Care Provider: Brayden Balderrama Instructions Patient Instructions: Discharge Instructions for ... Discharge Orders/Prescriptions Prescriptions: New docusate sodium [Colace] 100 mg capsule 100 mg PO BID Qty: 20 0RF oxycodone-acetaminophen 5-325 mg tablet 1 tab PO Q6H PRN (Reason: pain) 7 Days Qty: 14 0RF Continued saw palmetto 1,000 mg capsule 1,000 mg capsule 1,000 mg PO DAILY multivitamin tablet 1 tab PO DAILY cholecalciferol (vitamin D3) 25 mcg/drop ( 1,000 unit/drop) drops 25 mcg PO DAILY atenolol 25 mg tablet 25 mg PO DAILY levothyroxine 50 mcg tablet 50 mcg PO DAILY Label Comments: take 1 tablet by mouth every morning hydrochlorothiazide 25 mg tablet 25 mg PO QAM Qty: 90 3RF Discontinued aspirin [Adult Aspirin Regimen] 81 mg tablet,delayed release (DR/EC) 81 mg PO DAILY Referrals / Follow Up: Matthew Lopez MD [STAFF PHYSICIAN] - Brayden Balderrama MD [Primary Care Provider] - Disposition Discharge Orders: Discharge Patient (Routine); Ordered 05/12/22 Ordered By: Dr. Matthew Lopez
[2022-05-12 14:06] VITALS: BP 133/65; PULSE 64; RESP 18; TEMP 36.8; O2SAT 94
== END 2022-05-12 14:05 | disposition home or self-care (01) | DRG 658 ==
LOC: SDC 16:10 → MS3 16:10
PROVIDERS: Anesthesiology; Admitting Provider Urology; PCP Family Medicine; Referring Provider Urology; Visit Provider Urology
PROC: 0TT14ZZ Resection of Left Kidney, Percutaneous Endoscopic Approach (ICD-10-PCS; CPT 50546; principal; 2022-05-10 07:10)
DX: C64.2 Malignant neoplasm of left kidney, except renal pelvis (principal); E07.9 Disorder of thyroid, unspecified; I48.0 Paroxysmal atrial fibrillation; I10 Essential (primary) hypertension; E78.5 Hyperlipidemia, unspecified; M19.90 Unspecified osteoarthritis, unspecified site; F17.210 Nicotine dependence, cigarettes, uncomplicated; Z87.19 Personal history of other diseases of the digestive system; Z86.73 Personal history of transient ischemic attack (TIA), and cerebral infarction without residual deficits; Z79.899 Other long term (current) drug therapy
CPT/HCPCS: 36415; 85027; 86850; 86900; 86901; 88305; 88307; 93005; 99406; J7120; A4216; J2405

== ENCOUNTER → 2022-05-22 | Outpatient (CLI) | payer OTHER, MEDICARE, SELFPAY ==
[2022-05-22 15:16] LABS: Anion Gap 3 (5-15); BUN 37 mg/dL (7-18); BUN/Creat Ratio 21.6 RATIO (10-20); Calcium,Total 9.8 mg/dL (8.5-10.1); Chloride 105 mmol/L (98-107); Creatinine, Serum 1.71 mg/dL (0.70-1.30); EST Glomerular Filtration Rate 41 mL/min (>60); Est Glom Filt Rate - Afr Amer 50 mL/min (>60); Glucose 111 mg/dL (74-106); Potassium 4.2 mmol/L (3.5-5.1); Sodium Level 138 mmol/L (136-145)
== END | disposition home or self-care (01) ==
LOC: MFPLAB 13:53
PROVIDERS: PCP Family Medicine; Visit Provider Family Medicine
DX: N28.89 Other specified disorders of kidney and ureter (principal)
CPT/HCPCS: 36415; 80048

== ENCOUNTER → 2022-10-04 | Outpatient (CLI) | payer OTHER, SELFPAY ==
[2022-10-04 13:23] LABS: Anion Gap 9 (5-15); BUN 21 mg/dL (7-18); BUN/Creat Ratio 13.9 RATIO (10-20); Calcium,Total 9.2 mg/dL (8.5-10.1); Chloride 105 mmol/L (98-107); Creatinine, Serum 1.51 mg/dL (0.70-1.30); EST Glomerular Filtration Rate 47 mL/min (>60); Est Glom Filt Rate - Afr Amer 57 mL/min (>60); Glucose 88 mg/dL (74-106); Potassium 4.4 mmol/L (3.5-5.1); Sodium Level 140 mmol/L (136-145); Thyroid Stim Hormone (TSH) 2.42 uIU/mL (0.358-3.74)
== END | disposition home or self-care (01) ==
LOC: MFPLAB 10:21
PROVIDERS: PCP Family Medicine; Referring Provider Family Medicine; Visit Provider Family Medicine
DX: N28.9 Disorder of kidney and ureter, unspecified (principal); E03.9 Hypothyroidism, unspecified
CPT/HCPCS: 36415; 80048; 84443

== ENCOUNTER 2023-02-17 21:43 | Emergency (ER) | payer OTHER, SELFPAY ==
[2023-02-17 21:50] VITALS: BP 161/84; PULSE 75; RESP 13; TEMP 36.8; O2SAT 95; BMI 24.5
--- NOTE | 2023-02-17 21:56 | EDS_ITS ---
HPI History of Present Illness Chief Complaint: Weakness Narrative Narrative: 83-year-old male here with weakness. Notes diarrhea, fever and shortness of breath. States symptoms ongoing for 2 weeks. Notes worsening shortness of breath and dyspnea on exertion today. Denies any focal weakness. Notes cough is nonproductive. Does note runny stools. States recently his family has had runny stools as well. States he may be dehydrated. States he has a history of having only 1 kidney. Patient's suggest that he may be dehydrated. He denies any chest pain, palpitations. Denies take any blood thinner such as Eliquis Xarelto or Pradaxa. Denies any melena hematochezia. Denies any vomiting but does note some nausea. The patient denies recent surgery in the last 4 weeks or immobilization in the last 3 days, denies previous diagnosis of DVT or PE, hemoptysis, unilateral leg swelling or malignancy with treatment the last 6 months. No estrogen use noted. [facility] Medical History (Updated 02/17/23 @ 23:[address] Samm Santos, ) Acute hemorrhoid Arthritis Atrial fibrillation Back pain Cancer Cardiology follow-up encounter Chest pain Chewing tobacco nicotine dependence Dietary restriction Essential (primary) hypertension Former smoker GI bleed Heartburn History of diverticulitis History of echocardiogram History of pain when walking History of renal disease History of stress test Hyperlipidemia Hypertension Hypothyroidism Injury of head and neck Kidney disease Kidney disease Kidney stones Loss of hearing Paroxysmal atrial fibrillation Prostate disease Thyroid disease TIA (transient ischemic attack) Wears glasses Home Medications multivitamin 1 tab PO DAILY 07/26/18 [History Last Taken Unknown] saw palmetto 1,000 mg capsule 1,000 mg PO DAILY 07/26/18 [History Last Taken Unknown] hydrochlorothiazide 25 mg tablet 25 mg PO QAM #90 tabs 03/28/21 [Rx Last Taken Unknown] atenolol 25 mg tablet 25 mg PO DAILY 04/25/22 [History Last Taken 05/10/22 04:30] cholecalciferol (vitamin D3) 25 mcg/drop (1,000 unit/drop) oral drops 25 mcg PO DAILY 04/25/22 [History Last Taken Unknown] levothyroxine 50 mcg tablet 50 mcg PO DAILY 04/25/22 [History Last Taken 05/10/22 04:30] docusate sodium 100 mg capsule (Colace) 100 mg PO BID PRN Constipation 02/17/23 [History Last Taken Unknown] ondansetron 4 mg disintegrating tablet 4 mg PO Q8H PRN PRN Nausea #10 tabs 02/18/23 [Rx Last Taken Unknown] Allergy/AdvReac Type Severity Reaction Status Date / Time animal dander Allergy unknown Verified 10/24/22 08:24 mold Allergy unknown Verified 10/24/22 08:24 pollen extracts Allergy unknown Verified 10/24/22 08:24 amoxicillin AdvReac Nausea/vomi Verified 05/10/22 06:20 ting lisinopril AdvReac Headaches Verified 05/10/22 06:20 Family History Father Myocardial infarction from [place] age 56 Mother Heart disease CHF Grandfather Myocardial infarction from [place] age 53 Surgical History (Updated 02/17/23 @ 22:01 by Melissa Murillo) History of appendectomy History of cholecystectomy History of nasal septoplasty History of nephrectomy Hx laparoscopic cholecystectomy Hx of colonoscopy Hx of hand surgery Social History (Updated 10/24/22 @ 08:22 by Jacinda Galo) Smoking Status: Former smoker Smokeless tobacco user: chewing tobacco how long ago did patient quit smokin alcohol intake: never substance use type: does not use caffeine: Yes Type: coffee Number of servings: 2, tea Number of servings: 2 and other ROS ROS ED ROS Narrative Constitutional: Endorses fever HEENT: Denies sore throat Neck: Denies neck pain Cardiovascular: Denies chest pain, syncope Respiratory: Endorses shortness of breath GI: Denies abdominal pain or vomiting but endorses nausea : Denies changes in urinary habits Musculoskeletal: Denies muscle or joint pain Neurologic: Denies numbnessor loss of sensation, endorses weakness Skin denies rash EXAM Physical Exam Narrative Exam Narrative: Nursing triage notes reviewed, Vital signs reviewed Constitutional: please see mdm HENT: MMM Eyes: Pupils equal round and reactive to light, Extraocular muscles intact Neck: No stridor, no JVD, full neck ROM Lungs: Clear to auscultation, No wheezing or rales. No increased work of breathing, no conversational dyspnea, no accessory muscle use, no nasal flaring. No respiratory distress noted Heart: Regular rate and rhythm, No murmurs, No rubs and No gallops, 2+ distal pulses (radial, femoral, posterior tibial) in all extremities Abdomen: Soft, there is no tenderness, rigidity, rebound or guarding, no obvious peritoneal signs, no palpable pulsatile abdominal masses, no auscultated abdominal bruit : No CVAT Extremities: No edema Neuro: Alert and oriented x3, neuro exam at baseline, cranial nerves II through XII are intact. No pain with extraocular muscle movement. There is negative test of skew. Normal speech. 5 of 5 strength in upper and lower extremities in flexion extension. Intact sensation to light touch in upper and lower extremity dermatomes. No truncal or extremity ataxia. No dysdiadochokinesia. Normal gait. 2+ reflexes. No meningeal signs. Negative Babinski. NIH of 0 Skin: No rash or lesions noted Const Vital Signs: 02/17/23 21:50 02/17/23 21:55 02/17/23 22:41 Temperature 98.2 F Temperature Source Oral Pulse Rate 75 78 Respiratory Rate 13 21 H Respiratory Pattern Normal Blood Pressure 161/84 H 156/75 H Blood Pressure Mean 109 102 Pulse Ox 95 96 Oxygen Delivery Method Room Air Room Air 02/18/23 00:00 02/18/23 00:45 Temperature 98.8 F Temperature Source Oral Pulse Rate 84 Respiratory Rate 20 H Respiratory Pattern Blood Pressure 129/61 H Blood Pressure Mean 83 Pulse Ox 96 Oxygen Delivery Method Room Air MDM MDM MDM Narrative Medical decision making narrative: Chief Complaint: Fever, shortness of breath, diffuse weakness External records reviewed: Last echocardiogram from 2021 shows ejection fraction 60% MDM: I considered the following differential diagnosis: ACS, arrhythmia, anemia, pneumonia, UTI, dehydration, acute kidney injury, electrolyte abnormality, I obtained a broad lab and imaging work-up to further elucidate etiology of the patient's complaints. Labs with no evidence of severe anemia, myocardial ischemia, volume overload, COVID, flu, myocardial ischemia. Obtained a delta troponin for ACS rule out. Delta troponin showed no evidence of acute myocard ial ischemia. The likely etiology the patient presentation is dehydration. On reassessment after fluids and Zofran the patient stated he felt much better. No clear life-threatening etiology could be ascertained. Patient's appropriate discharge home. Patient and family agreed with plan expressed understanding. Hypokalemia replaced. Factors affecting care: History of atrial fibrillation, hypertension, hyper lipidemia Social determinants of health: Elderly History obtained from others: The patient's Shared decision making: I will have a discussion with the patient and or visitors regarding risk/benefits of further testing or admission. They will be made aware of of the risk/benefits inherent in this decision they will be given the opportunity to voice understanding. Consults: None Lab Data Attestation: I reviewed the patient's lab results. Lab results narrative: EKG with normal sinus rhythm, normal axis, right bundle branch block, anterior T wave inversions, no obvious STEMI, similar to prior EKG CBC without leukocytosis, severe anemia, no thrombocytopenia. BNP within normal limits suggestive of no volume overload, increased ventricular stretch or chest wall pressure BMP with mild hypokalemia, hyponatremia, no anion gap to suggest endorgan hypoperfusion, baseline CKD Troponin is negative, no evidence of myocardial ischemia. Delta troponin also negative. COVID, flu negative UA without evidence of infection or inflammation Labs: Laboratory Results - last 24 hr 02/17/23 02/17/23 02/17/23 22:48 22:48 22:48 WBC 8.0 RBC 4.75 Hgb 14.6 Hct 41.7 MCV 87.8 MCH 30.7 MCHC 35.0 RDW Std Deviation 42.5 RDW Coeff of Jd 13.2 Plt Count 143 L MPV 10.1 Immature Gran % (Auto) 1.200 H Neut % (Auto) 67.7 Lymph % (Auto) 13.9 L [place] % (Auto) 16.3 H Eos % (Auto) 0.2 Baso % (Auto) 0.7 Absolute Neuts (auto) 5.4 Absolute Lymphs (auto) 1.12 Nucleated RBC % 0 Sodium 135 L Potassium 3.3 L Chloride 105 Carbon Dioxide 25.0 Anion Gap 5 BUN 29 H Creatinine 1.59 H Estim Creat Clear Calc 37.62 Est GFR (MDRD) Af Amer 54 L Est GFR (MDRD) Non-Af 45 L BUN/Creatinine Ratio 18.2 Glucose 119 H Calcium 8.3 L Troponin I High Sens 23 B-Natriuretic Peptide 33.3 Urine Color Urine Clarity Urine pH Ur Specific [place] Urine Protein Urine Glucose (UA) Urine Ketones Urine Occult Blood Urine Nitrite Urine Bilirubin Urine Urobilinogen Ur Leukocyte Esterase Urine RBC Urine WBC Ur Squamous Epith Cells Urine Bacteria Hyaline Casts Urine Mucus 02/18/23 02/18/23 00:15 00:45 WBC RBC Hgb Hct MCV MCH MCHC RDW Std Deviation RDW Coeff of Jd Plt Count MPV Immature Gran % (Auto) Neut % (Auto) Lymph % (Auto) [place] % (Auto) Eos % (Auto) Baso % (Auto) Absolute Neuts (auto) Absolute Lymphs (auto) Nucleated RBC % Sodium Potassium Chloride Carbon Dioxide Anion Gap BUN Creatinine Estim Creat Clear Calc Est GFR (MDRD) Af Amer Est GFR (MDRD) Non-Af BUN/Creatinine Ratio Glucose Calcium Troponin I High Sens 30 B-Natriuretic Peptide Urine Color Yellow Urine Clarity Clear Urine pH 5.0 Ur Specific [place] 1.020 Urine Protein 100 H Urine Glucose (UA) Normal Urine Ketones 50 H Urine Occult Blood 25 H Urine Nitrite Negative Urine Bilirubin Negative Urine Urobilinogen 4 H Ur Leukocyte Esterase 25 H Urine RBC 0-5 SEEN Urine WBC 0-5 SEEN Ur Squamous Epith Cells 0-5 SEEN Urine Bacteria 2+ Hyaline Casts 0-5 SEEN Urine Mucus 1+ Radiography Chest X-Ray - ED: Read by ED Physician Diagnostic Testing: Clinical Impression(s) from Imaging Studies Chest X-Ray 02/17/23 23:10 IMPRESSION: No evidence of active intrathoracic disease. Electronically Signed: Trish Molina MD at 23:25 EDT , I have personally reviewed the patient's chest x-ray. Chest x-ray is unremarkable for pulmonary edema, pneumothorax, pneumonia or focal cardiopulmonary abnormality. Discharge Plan Triage Chief Complaint: Weakness ED Provider: Samm Santos Dx/Rx/DC Orders Clinical Impression: Weakness, Acute dyspnea, Acute hyponatremia, Acute hypokalemia, Acute dehydration Instructions: ED Weakness (Uncertain Cause) Prescriptions: New ondansetron 4 mg tablet,disintegrating 4 mg PO Q8H PRN PRN (Reason: Nausea) Qty: 10 0RF No Action saw palmetto 1,000 mg capsule 1,000 mg capsule 1,000 mg PO DAILY multivitamin tablet 1 tab PO DAILY cholecalciferol (vitamin D3) 25 mcg/drop ( 1,000 unit/drop) drops 25 mcg PO DAILY atenolol 25 mg tablet 25 mg PO DAILY levothyroxine 50 mcg tablet 50 mcg PO DAILY Label Comments: take 1 tablet by mouth every morning docusate sodium [Colace] 100 mg capsule 100 mg PO BID PRN (Reason: Constipation) hydrochlorothiazide 25 mg tablet 25 mg PO QAM Qty: 90 3RF Primary Care Provider: Brayden Balderrama Referrals: Brayden Balderrama MD [Primary Care Provider] -
[2023-02-17] MEDS: Ondansetron 4 MG/2 ML Vial IV (22:39)
[2023-02-17] MEDS: 0.9% Normal Saline 1,000 ML 999 ML IV (22:39)
[2023-02-17 22:41] VITALS: BP 156/75; PULSE 78; RESP 21; O2SAT 96
[2023-02-17 23:09] LABS: Absolute Lymphocyte Count 1.12 X10^3/uL (0.83-4.51); Absolute Neutrophil Count 5.4 X10^3/uL (2.0-7.7); Basophil# 0.06 X10^3/uL; Basophil% 0.7 % (0-1); Eosinophil# 0.02 X10^3/uL; Eosinophils% 0.2 % (0-5); Hematocrit 41.7 % (40-54); Hemoglobin 14.6 g/dL (13.0-16.5); Lymphocyte # 1.12 X10^3/ul (0.83-4.51); Lymphocyte % 13.9 % (19-41); Mean Corpuscular Hgb 30.7 pg (27.0-32.0); Mean Corpuscular Volume 87.8 fL (80-94); Mean Platelet Vol. 10.1 fl (6.2-12.0); Monocyte# 1.31 X10^3/uL; Monocyte% 16.3 % (0-10); NRBC Flagged by Analyzer 0 % (0-5); Neutrophil # 5.43 X10^3/uL (2.7-7.7); Neutrophil % 67.7 % (47-70); Platelet Count 143 K/mm3 (150-450); RBC Distribution Width CV 13.2 % (11.6-14.6); RBC Distribution Width SD 42.5 fl (35.1-43.9); Red Blood Count 4.75 M/mm3 (4.6-6.2)
--- NOTE | 2023-02-17 23:10 | RAD_ITS ---
INDICATION: Shortness of breath EXAMINATION/TECHNIQUE: X-RAY - XR Chest 2 Views COMPARISON: FINDINGS: LINES/DEVICES: None. LUNGS: No consolidation. No pneumothorax. MEDIASTINUM: Aorta is atherosclerotic. CARDIAC SILHOUETTE: Not enlarged. BONES AND SOFT TISSUES: Degenerative changes of the dorsal spine. RAD/Chest PA and Lateral IMPRESSION: No evidence of active intrathoracic disease. Electronically Signed: Trish Molina MD at 23:25 EDT ,
[2023-02-17 23:12] LABS: Anion Gap 5 (5-15); BUN 29 mg/dL (7-18); BUN/Creat Ratio 18.2 RATIO (10-20); Calcium,Total 8.3 mg/dL (8.5-10.1); Chloride 105 mmol/L (98-107); Creatinine, Serum 1.59 mg/dL (0.70-1.30); EST Glomerular Filtration Rate 45 mL/min (>60); Est Glom Filt Rate - Afr Amer 54 mL/min (>60); Estimated Creatinine Clearance 37.62 ml/min; Glucose 119 mg/dL (74-106); Potassium 3.3 mmol/L (3.5-5.1); Sodium Level 135 mmol/L (136-145); Troponin-I HS 23 pg/mL (3.0-78.0)
[2023-02-17 23:36] LABS: BNP,B-Type NATRIURETIC PEPTIDE 33.3 pg/mL (0-100)
[2023-02-18] VITALS: BP 129/61; PULSE 84; RESP 20; O2SAT 96
[2023-02-18 00:23] LABS: Color, Urine Yellow (Yellow); Glucose, Dipstick Normal (Normal); Ketone-Dipstick 50 mg/dl (Negative); Leukocyte Esterase-Dipstick 25 /ul (Negative); Nitrite-Dipstick Negative (Negative); Occult Blood-Urine 25 /ul (Negative); Protein-Dipstick 100 mg/dl (Negative); Urine Bilirubin Dipstick Negative (Negative); Urine Clarity Clear (Clear); Urine Urobilinogen 4 mg/dl (Normal)
[2023-02-18 00:45] VITALS: TEMP 37.1
[2023-02-18 00:54] LABS: Bacteria 2+ /hpf (None Seen); Hyaline Cast 0-5 SEEN /lpf (0-5); Mucous, Urine 1+ /hpf (<or=2+); Red Blood Cells-Urine 0-5 SEEN /hpf (0-5); Squamous Epithelial Cells - UA 0-5 SEEN /hpf (0-5); White Blood Cells 0-5 SEEN /hpf (0-5)
[2023-02-18 01:10] LABS: Troponin-I HS 30 pg/mL (3.0-78.0)
[2023-02-18] MEDS: Potassium Chloride Oral Tablet 20 MEQ 40 MEQ PO (01:18)
== END 2023-02-18 01:27 | disposition home or self-care (01) ==
LOC: ED 22:14
PROVIDERS: Emergency Provider Emergency Medicine; PCP Family Medicine; Visit Provider Emergency Medicine
DX: E86.0 Dehydration (principal); I48.91 Unspecified atrial fibrillation; E87.6 Hypokalemia; I10 Essential (primary) hypertension; E87.1 Hypo-osmolality and hyponatremia; E78.5 Hyperlipidemia, unspecified; R06.00 Dyspnea, unspecified; R53.1 Weakness; E03.9 Hypothyroidism, unspecified; F17.220 Nicotine dependence, chewing tobacco, uncomplicated
CPT/HCPCS: 71046; 80048; 81001; 83880; 84484; 85025; 87428; 93005; 96361; 96374; 99285; J7030; A4216; J2405

== ENCOUNTER → 2023-03-01 | Outpatient (CLI) | payer OTHER, SELFPAY ==
[2023-03-01 10:43] LABS: Free T3 1.5 pg/mL (2.18-3.98); T4 Free Direct 1.65 ng/dL (0.76-1.46); Thyroid Stim Hormone (TSH) 2.47 uIU/mL (0.358-3.74)
== END | disposition home or self-care (01) ==
LOC: MFPLAB 09:19
PROVIDERS: PCP Family Medicine; Visit Provider Family Medicine
DX: E03.9 Hypothyroidism, unspecified (principal)
CPT/HCPCS: 36415; 84439; 84443; 84481

== ENCOUNTER → 2023-06-07 | Outpatient (CLI) | payer OTHER, SELFPAY | END | disposition home or self-care (01) | LOC: PSN 13:02 | PROVIDERS: PCP Family Medicine; Referring Provider Nurse Practitioner Gerontology; Visit Provider Nurse Practitioner Gerontology | DX: R00.1 Bradycardia, unspecified (principal); I48.0 Paroxysmal atrial fibrillation; I49.3 Ventricular premature depolarization | CPT/HCPCS: 93225; 93226 ==

== ENCOUNTER → 2023-09-06 | Outpatient (CLI) | payer OTHER, SELFPAY ==
[2023-09-06 18:27] LABS: Anion Gap 7 (5-15); BUN 30 mg/dL (7-18); Calcium,Total 8.7 mg/dL (8.5-10.1); Chloride 105 mmol/L (98-107); Cholesterol 198 mg/dL (200); Creatinine, Serum 1.87 mg/dL (0.70-1.30); EST Glomerular Filtration Rate 37 mL/min (>60); Est Glom Filt Rate - Afr Amer 45 mL/min (>60); Free T3 2.4 pg/mL (2.18-3.98); Glucose 84 mg/dL (74-106); High Density Lipoprotein 36 mg/dL; Magnesium 2.6 mg/dL (1.6-2.6); Potassium 4.3 mmol/L (3.5-5.1); Sodium Level 138 mmol/L (136-145); T4 Free Direct 1.06 ng/dL (0.76-1.46); Thyroid Stim Hormone (TSH) 2.72 uIU/mL (0.358-3.74); Triglycerides 128 mg/dL; Very Low Density Lipoprotein 26 mg/dL (5-40)
== END | disposition home or self-care (01) ==
LOC: MTLAB 15:25
PROVIDERS: PCP Family Medicine; Referring Provider Family Medicine; Visit Provider Family Medicine
DX: E03.9 Hypothyroidism, unspecified (principal); I10 Essential (primary) hypertension; I49.3 Ventricular premature depolarization
CPT/HCPCS: 36415; 80048; 80061; 83735; 84439; 84443; 84481

== ENCOUNTER → 2023-10-11 | Outpatient (CLI) | payer OTHER, SELFPAY ==
[2023-10-11 10:41] LABS: Anion Gap 5 (5-15); BUN 28 mg/dL (7-18); BUN/Creat Ratio 14.9 RATIO (10-20); Calcium,Total 9.5 mg/dL (8.5-10.1); Chloride 107 mmol/L (98-107); Creatinine, Serum 1.88 mg/dL (0.70-1.30); EST Glomerular Filtration Rate 37 mL/min (>60); Est Glom Filt Rate - Afr Amer 44 mL/min (>60); Glucose 133 mg/dL (74-106); Potassium 4.9 mmol/L (3.5-5.1); Sodium Level 141 mmol/L (136-145)
== END | disposition home or self-care (01) ==
LOC: MFPLAB 08:28
PROVIDERS: PCP Family Medicine; Visit Provider Family Medicine
DX: I10 Essential (primary) hypertension (principal)
CPT/HCPCS: 36415; 80048

== ENCOUNTER → 2024-03-13 | Outpatient (CLI) | payer OTHER, SELFPAY ==
[2024-03-13 18:21] LABS: Anion Gap 7 (5-15); BUN 27 mg/dL (7-18); BUN/Creat Ratio 15.4 RATIO (10-20); Calcium,Total 8.7 mg/dL (8.5-10.1); Chloride 106 mmol/L (98-107); Cholesterol 183 mg/dL (200); Creatinine, Serum 1.75 mg/dL (0.70-1.30); EST Glomerular Filtration Rate 40 mL/min (>60); Est Glom Filt Rate - Afr Amer 48 mL/min (>60); Free T3 2.3 pg/mL (2.18-3.98); Glucose 115 mg/dL (74-106); High Density Lipoprotein 33 mg/dL; Potassium 4.3 mmol/L (3.5-5.1); Sodium Level 137 mmol/L (136-145); T4 Free Direct 1.04 ng/dL (0.76-1.46); Thyroid Stim Hormone (TSH) 3.05 uIU/mL (0.358-3.74); Triglycerides 148 mg/dL; Very Low Density Lipoprotein 30 mg/dL (5-40)
== END | disposition home or self-care (01) ==
LOC: MFPLAB 15:25
PROVIDERS: PCP Family Medicine; Visit Provider Family Medicine
DX: I10 Essential (primary) hypertension (principal); E03.9 Hypothyroidism, unspecified
CPT/HCPCS: 36415; 80048; 80061; 84439; 84443; 84481

== ENCOUNTER → 2024-09-08 | Outpatient (CLI) | payer OTHER, SELFPAY ==
[2024-09-08 18:16] LABS: Anion Gap 5 (5-15); BUN 25 mg/dL (7-18); BUN/Creat Ratio 14.4 RATIO (10-20); Chloride 104 mmol/L (98-107); Creatinine, Serum 1.74 mg/dL (0.70-1.30); EST Glomerular Filtration Rate 40 mL/min (>60); Est Glom Filt Rate - Afr Amer 49 mL/min (>60); Free T3 2.1 pg/mL (2.18-3.98); Glucose 124 mg/dL (74-106); Magnesium 2.4 mg/dL (1.6-2.6); Potassium 3.9 mmol/L (3.5-5.1); Sodium Level 137 mmol/L (136-145); T4 Free Direct 1.03 ng/dL (0.76-1.46)
== END | disposition home or self-care (01) ==
LOC: MFPLAB 15:23
PROVIDERS: PCP Family Medicine; Visit Provider Family Medicine
DX: I10 Essential (primary) hypertension (principal); E03.9 Hypothyroidism, unspecified
CPT/HCPCS: 36415; 80048; 83735; 84439; 84443; 84481

== ENCOUNTER 2024-10-06 07:36 | Emergency (ER) | payer OTHER, SELFPAY ==
[2024-10-06] VITALS (8 sets, daily range): BP systolic 112–146; BP diastolic 60–90; PULSE 68–102; RESP 14–19; TEMP 36.6–36.7; O2SAT 95–99; BMI 23.7
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
[2024-10-06] MEDS: 0.9% Normal Saline (500mL Bag) 500 ML 1000 ML IV (08:12)
[2024-10-06 08:20] LABS: Hematocrit 41.6 % (40-54); Hemoglobin 14.3 g/dL (13.0-16.5); Mean Corp Hgb Conc 34.4 g/dL (32-36); Mean Corpuscular Volume 87.4 fL (80-94); Mean Platelet Vol. 10.6 fl (6.2-12.0); Platelet Count 281 K/mm3 (150-450); RBC Distribution Width CV 13.2 % (11.6-14.6); Red Blood Count 4.76 M/mm3 (4.6-6.2); White Blood Count 17.5 K/mm3 (4.4-11.0)
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
[2024-10-06 08:44] LABS: ALB/GLOB Ratio 0.8 RATIO (0.9-2.4); AST(SGOT) 20 U/L (15-37); Alanine Aminotransfer ALT/SGPT 28 U/L (16-61); Albumin, Serum 3.3 g/dL (3.2-5.0); Alkaline Phosphatase 98 U/L (45-117); Anion Gap 11 (5-15); BUN 26 mg/dL (7-18); Calcium,Total 9.3 mg/dL (8.5-10.1); Chloride 104 mmol/L (98-107); Creatinine, Serum 1.86 mg/dL (0.70-1.30); EST Glomerular Filtration Rate 37 mL/min (>60); Est Glom Filt Rate - Afr Amer 45 mL/min (>60); Estimated Creatinine Clearance 31.62 ml/min; Globulin 4.2 g/dL (2.2-4.2); Glucose 159 mg/dL (74-106); Potassium 3.7 mmol/L (3.5-5.1); Protein, Total 7.5 g/dL (6.4-8.2); Sodium Level 135 mmol/L (136-145); Troponin-I HS (w/2H Reflex) 6 pg/mL (3.0-78.0)
[2024-10-06 10:16] LABS: Reflex Troponin-HS? (from REC) Y
[2024-10-06 10:24] LABS: Mucous, Urine 0 SEEN /hpf (<or=2+); Red Blood Cells-Urine 0 SEEN /hpf (0-5)
[2024-10-06 10:25] LABS: Color, Urine Yellow (Yellow); Glucose, Dipstick Normal (Normal); Ketone-Dipstick Negative (Negative); Leukocyte Esterase-Dipstick 25 /ul (Negative); Nitrite-Dipstick Negative (Negative); Occult Blood-Urine Negative /ul (Negative); Protein-Dipstick 30 mg/dl (Negative); Urine Bilirubin Dipstick Negative (Negative); Urine Clarity Sl. Cloudy (Clear); Urine Urobilinogen 4 mg/dl (Normal); Urine pH 6.5 (5.0 - 8.0)
[2024-10-06 10:31] LABS: White Blood Cells 0-5 SEEN /hpf (0-5)
[2024-10-06 10:32] LABS: Bacteria 1+ /hpf (None Seen); Squamous Epithelial Cells - UA 0-5 SEEN /hpf (0-5)
[2024-10-06 10:56] LABS: Troponin-I HS 7 pg/mL (3.0-78.0)
[2024-10-06] MEDS: Doxycycline 100 MG CAPSULE PO (12:11)
== END 2024-10-06 12:28 | disposition home or self-care (01) ==
PROVIDERS: Emergency Provider Emergency Medicine; PCP Family Medicine; Visit Provider Emergency Medicine
DX: J18.9 Pneumonia, unspecified organism (principal); I48.0 Paroxysmal atrial fibrillation; D72.829 Elevated white blood cell count, unspecified; N18.9 Chronic kidney disease, unspecified; E87.1 Hypo-osmolality and hyponatremia; I49.3 Ventricular premature depolarization; I12.9 Hypertensive chronic kidney disease with stage 1 through stage 4 chronic kidney disease, or unspecified chronic kidney disease; E78.5 Hyperlipidemia, unspecified; R55 Syncope and collapse; Z86.73 Personal history of transient ischemic attack (TIA), and cerebral infarction without residual deficits; E03.9 Hypothyroidism, unspecified; Z79.890 Hormone replacement therapy; Z79.899 Other long term (current) drug therapy; Z90.49 Acquired absence of other specified parts of digestive tract; Z90.5 Acquired absence of kidney; F17.220 Nicotine dependence, chewing tobacco, uncomplicated; V47.5XXA Car driver injured in collision with fixed or stationary object in traffic accident, initial encounter
CPT/HCPCS: 70450; 71045; 74176; 80053; 81001; 84484; 85027; 93005; 96360; 99285; A4216

== ENCOUNTER 2024-12-20 11:14 | Emergency (ER) | payer MEDICARE, SELFPAY ==
[2024-12-20] VITALS (36 sets, daily range): BP systolic 110–145; BP diastolic 60–78; PULSE 51–71; RESP 10–21; TEMP 34.8–37.1; O2SAT 96–100; BMI 23.6
--- NOTE | 2024-12-20 11:24 | EKG12_ITS ---
Test Reason : low hr Blood Pressure : */* mmHG Vent. Rate : 50 BPM Atrial Rate : 50 BPM P-R Int : 182 ms QRS Dur : 146 ms QT Int : 500 ms P-R-T Axes : 71 16 38 degrees QTcB Int : 455 ms Sinus bradycardia Right bundle branch block Cannot rule out Inferior infarct (cited on or before 17-Feb-2023) Abnormal ECG Confirmed by Javan Parks ([id number]), editor at large JOURDAN CHEN ([id number]) on 12/22/2024 7:02:59 AM Referred By: Confirmed By: Javan Parks
--- NOTE | 2024-12-20 11:24 | RAD_ITS ---
PROCEDURE: CHEST PA AND LATERAL REASON FOR EXAM: Syncope TECHNIQUE: Frontal and lateral views of the chest. COMPARISON: 10/06/2024 FINDINGS: Loop recorder The heart size is normal. There are atherosclerotic calcifications of the thoracic aorta. The lungs are clear. The bones are unremarkable. RAD/Chest PA and Lateral IMPRESSION: No radiographic evidence of acute cardiopulmonary disease Reading Location: [facility]
--- NOTE | 2024-12-20 11:32 | EDS_ITS ---
HPI <DENIZ Heard - Last Filed: 12/20/24 16:05> History of Present Illness Chief Complaint: Syncope Narrative Narrative: Patient is an 84-year-old male with history of kidney cancer, nephrectomy in 2021. History of hypertension hyperlipidemia frequent PVCs, currently had a loop recorder placed secondary to concern that the patient might need a pacemaker. Patient denies any fever or chills. Patient states while at breakfast today, he started to feel dizzy, weak, and slightly nauseous. He denies any specific chest pain. Pay states he just feels weak and tired. Had a syncopal episode. Patient did not fall. The was able to lean the patient onto the trivedi. Patient states he does PFSH <DENIZ Heard - Last Filed: 12/20/24 16:05> [facility] Medical History Acute hemorrhoid Arthritis Atrial fibrillation Back pain Cancer Cardiology follow-up encounter Chest pain Chewing tobacco nicotine dependence Dietary restriction Essential (primary) hypertension Former smoker GI bleed Heartburn History of diverticulitis History of echocardiogram History of pain when walking History of renal disease History of stress test Hyperlipidemia Hypertension Hypothyroidism Injury of head and neck Kidney disease Kidney disease Kidney stones Loss of hearing Paroxysmal atrial fibrillation Prostate disease Thyroid disease TIA (transient ischemic attack) Wears glasses Home Medications ?Medication ?Instructions ?Recorded ?Last Taken ?Type multivitamin 1 tab PO DAILY 07/26/18 Unkn own History saw palmetto 1,000 mg capsule 1,000 mg PO DAILY Unknown History cholecalciferol (vitamin D3) 25 50 mcg PO DAILY Unknown History mcg/drop (1,000 unit/drop) oral drops levothyroxine 50 mcg tablet 50 mcg PO DAILY 04/25/22 0 05/10/22 04:30 History magnesium 200 mg tablet 200 mg PO QWEEK 05/17/23 Unk nown History aspirin 81 mg capsule 81 mg PO DAILY 12/20/24 Unkn own History hydrochlorothiazide 12.5 mg capsule 12.5 mg PO DAILY 0 12/20/24 Unknown History metoprolol succinate 25 mg 12.5 mg PO DAILY 12/20/24 U nknown History tablet,extended release 24 hr mexiletine 200 mg capsule 200 mg PO Q8H 12/20/24 Unkno wn History Allergy/AdvReac Type Severity Reaction Status Date / Time animal dander Allergy unknown Verified 12/20/24 11:25 mold Allergy unknown Verified 12/20/24 11:25 pollen extracts Allergy unknown Verified 12/20/24 11:25 Milk Containing Products AdvReac Mild Abd Verified 12/20/24 15:51 (Dairy) cramps/diarrhea amoxicillin AdvReac Nausea/vomi Verified 12/20/24 11:25 ting lisinopril AdvReac Headaches Verified 12/20/24 11:25 Poultry AdvReac Abd Verified 12/20/24 15:51 cramps/diarrhea Family History Father Myocardial infarction from [place] age 56 Mother Heart disease CHF Grandfather Myocardial infarction from [place] age 53 Surgical History History of appendectomy History of cholecystectomy History of nasal septoplasty History of nephrectomy Hx laparoscopic cholecystectomy Hx of colonoscopy Hx of hand surgery Social History Smoking Status: Current some day smoker tobacco type: smokeless tobacco Smokeless tobacco user: chewing tobacco how long ago did patient quit smokin alcohol intake: never substance use type: does not use caffeine: Yes Type: coffee Number of servings: 2, tea Number of servings: 2 and other ROS <DENIZ Heard - Last Filed: 12/20/24 16:05> ROS ED ROS Narrative Constitutional: Negative for fever, chills, weight loss. Positive for weakness Eyes: Negative for vision loss, vision change, double vision ENT: Negative for any sore throat, ear pain, congestion Cardiovascular: Negative for any chest pain, tightness, palpitations Respiratory: Negative for any cough, sputum production, hemoptysis, dyspnea, dyspnea on exertion, orthopnea Gastrointestinal: Negative for any abdominal pain, vomiting, diarrhea, constipation, blood in stool, blood in vomit. Positive for nausea : Negative for any urinary frequency, dysuria, retention, blood in urine Muscle skeletal: Negative for any neck pain, back pain Neurological: Negative for any headache. Positive syncope, dizziness Skin: Negative for any rashes, itching, abrasions, lacerations Psychiatric: Negative for any depression, anxiety, stress, suicidal ideation, homicidal ideation Hematologic: Negative for any excessive bruising, easy bleeding EXAM <DENIZ Heard - Last Filed: 12/20/24 16:05> Physical Exam Narrative Exam Narrative: Vital signs reviewed. Patient is alert and orient x 4. Patient heart rate is 50, he is on 12.5 mg metoprolol HEET: Head normocephalic atraumatic, TMs clear bilaterally. Posterior pharynx is clear, moist mucous membranes. Nares clear bilaterally. Neck: Supple with no lymphadenopathy or tenderness. No signs of meningismus. Cardiac: Bradycardia no murmurs gallops or rubs, equal peripheral pulses bilaterally. Respiratory: Lungs clear to auscultation bilaterally. No chest tenderness. Abdomen: Soft, nontender, nondistended. No abdominal bruit or pulsatile masses. No hepatosplenomegaly Extremities: No peripheral edema, no signs of gross trauma or deformity. Active full range of motion of all extremities. Neuro: Cranial nerves II through XII intact, no focal neurological deficits. NIH stroke scale 0 Skin: Clean dry and intact with no rash, purpura, petechiae, vesicles or pustules. Pale appearance Backs/flank: No CVA tenderness, no midline spinal tenderness, no deformity. Psych: Normal mood and affect. No SI, HI or acute psychosis. Const Vital Signs: 12/20/24 11:16 12/20/24 11:24 12/20/24 11:28 Temperature 94.7 F L Temperature Source Temporal Pulse Rate 53 L 51 L Pulse Rate [Lying] Pulse Rate [Sitting (for 1 minute prior to obtaining)] Pulse Rate [Standing (for 1 minute prior to obtaining)] Respiratory Rate 16 16 Respiratory Effort Normal Non-Labored Respiratory Pattern Normal Blood Pressure 122/71 H Blood Pressure [Lying] Blood Pressure [Sitting (for 1 minute prior to obtaining)] Blood Pressure [Standing (for 1 minute prior to obtaining)] Blood Pressure Mean 88 Blood Pressure Mean [Lying] Blood Pressure Mean [Sitting (for 1 minute prior to obtaining)] Blood Pressure Mean [Standing (for 1 minute prior to obtaining)] Pulse Ox 96 100 Oxygen Delivery Method Room Air Room Air 12/20/24 11:59 12/20/24 12:50 12/20/24 14:16 Temperature 95.6 F L Temperature Source Temporal Pulse Rate 51 L 59 L Pulse Rate [Lying] 62 Pulse Rate [Sitting (for 1 minute prior to obtaining)] 59 L Pulse Rate [Standing (for 1 minute prior to obtaining)] 65 Respiratory Rate 16 Respiratory Effort Respiratory Pattern Blood Pressure 132/67 H Blood Pressure [Lying] 125/69 H Blood Pressure [Sitting (for 1 minute prior to obtaining)] 124/74 H Blood Pressure [Standing (for 1 minute prior to obtaining)] 132/69 H Blood Pressure Mean 88 Blood Pressure Mean [Lying] 87 Blood Pressure Mean [Sitting (for 1 minute prior to obtaining)] 90 Blood Pressure Mean [Standing (for 1 minute prior to obtaining)] 90 Pulse Ox 100 Oxygen Delivery Method Room Air 12/20/24 14:20 Temperature 96.6 F L Temperature Source Temporal Pulse Rate 64 Pulse Rate [Lying] Pulse Rate [Sitting (for 1 minute prior to obtaining)] Pulse Rate [Standing (for 1 minute prior to obtaining)] Respiratory Rate 16 Respiratory Effort Respiratory Pattern Blood Pressure 132/69 H Blood Pressure [Lying] Blood Pressure [Sitting (for 1 minute prior to obtaining)] Blood Pressure [Standing (for 1 minute prior to obtaining)] Blood Pressure Mean 90 Blood Pressure Mean [Lying] Blood Pressure Mean [Sitting (for 1 minute prior to obtaining)] Blood Pressure Mean [Standing (for 1 minute prior to obtaining)] Pulse Ox 97 Oxygen Delivery Method Room Air Positive well nourished and well developed General Appearance ED: well developed <Dr. Anya Basilio, DO - Last Filed: 12/25/24 12:02> Physical Exam Const Vital Signs: 12/20/24 11:16 12/20/24 11:24 12/20/24 11:28 Temperature 94.7 F L Temperature Source Temporal Pulse Rate 53 L 51 L Pulse Rate [Lying] Pulse Rate [Sitting (for 1 minute prior to obtaining)] Pulse Rate [Standing (for 1 minute prior to obtaining)] Respiratory Rate 16 16 Respiratory Effort Normal Non-Labored Respiratory Pattern Normal Blood Pressure 122/71 H Blood Pressure [Lying] Blood Pressure [Sitting (for 1 minute prior to obtaining)] Blood Pressure [Standing (for 1 minute prior to obtaining)] Blood Pressure Mean 88 Blood Pressure Mean [Lying] Blood Pressure Mean [Sitting (for 1 minute prior to obtaining)] Blood Pressure Mean [Standing (for 1 minute prior to obtaining)] Pulse Ox 96 100 Oxygen Delivery Method Room Air Room Air 12/20/24 11:59 12/20/24 12:50 12/20/24 14:16 Temperature 95.6 F L Temperature Source Temporal Pulse Rate 51 L 59 L Pulse Rate [Lying] 62 Pulse Rate [Sitting (for 1 minute prior to obtaining)] 59 L Pulse Rate [Standing (for 1 minute prior to obtaining)] 65 Respiratory Rate 16 Respiratory Effort Respiratory Pattern Blood Pressure 132/67 H Blood Pressure [Lying] 125/69 H Blood Pressure [Sitting (for 1 minute prior to obtaining)] 124/74 H Blood Pressure [Standing (for 1 minute prior to obtaining)] 132/69 H Blood Pressure Mean 88 Blood Pressure Mean [Lying] 87 Blood Pressure Mean [Sitting (for 1 minute prior to obtaining)] 90 Blood Pressure Mean [Standing (for 1 minute prior to obtaining)] 90 Pulse Ox 100 Oxygen Delivery Method Room Air 12/20/24 14:20 Temperature 96.6 F L Temperature Source Temporal Pulse Rate 64 Pulse Rate [Lying] Pulse Rate [Sitting (for 1 minute prior to obtaining)] Pulse Rate [Standing (for 1 minute prior to obtaining)] Respiratory Rate 16 Respiratory Effort Respiratory Pattern Blood Pressure 132/69 H Blood Pressure [Lying] Blood Pressure [Sitting (for 1 minute prior to obtaining)] Blood Pressure [Standing (for 1 minute prior to obtaining)] Blood Pressure Mean 90 Blood Pressure Mean [Lying] Blood Pressure Mean [Sitting (for 1 minute prior to obtaining)] Blood Pressure Mean [Standing (for 1 minute prior to obtaining)] Pulse Ox 97 Oxygen Delivery Method Room Air STEFANIE <DENIZ Heard - Last Filed: 12/20/24 16:05> [facility] Lab Data Labs: Laboratory Results - last 24 hr 12/20/24 12/20/24 12/20/24 11:30 13:05 13:50 WBC 12.3 H RBC 4.77 Hgb 14.5 Hct 41.5 MCV 87.0 MCH 30.4 MCHC 34.9 RDW Std Deviation 43.7 RDW Coeff of Jd 13.7 Plt Count 279 MPV 10.4 PT 13.8 INR 1.0 Sodium 137 Potassium 3.8 Chloride Direct 104 Carbon Dioxide 17.6 L Anion Gap 15 BUN 31 H Creatinine 1.82 H Estim Creat Clear Calc 32.31 Est GFR (MDRD) Non-Af 37 L BUN/Creatinine Ratio 16.8 Glucose 139 H Calcium 9.4 Troponin T High Sens 19 Troponin T Hi Sens 2 Hr 19 Troponin T Hi Sens 2Hr Delta 0 Urine Color Yellow Urine Clarity Clear Urine pH 6.5 Ur Specific [place] 1.010 Urine Protein 30 H Urine Glucose (UA) Normal Urine Ketones Negative Urine Occult Blood Negative Urine Nitrite Negative Urine Bilirubin Negative Urine Urobilinogen 1 H Ur Leukocyte Esterase Negative Urine RBC 0 SEEN Urine WBC 0 SEEN Ur Squamous Epith Cells 0 SEEN Urine Bacteria 0 SEEN Urine Mucus 0 SEEN Radiography Diagnostic Testing: Clinical Impression(s) from Imaging Studies Chest X-Ray 12/20/24 11:24 IMPRESSION: No radiographic evidence of acute cardiopulmonary disease Reading Location: [facility] EKG Sinus bradycardia: Attestation: I personally reviewed and interpreted this EKG as follows: Interpretation: Sinus Rhythm Comments: Sinus bradycardia, right bundle branch block negative for any ACS, NM Treatment and Re-Evaluation :: Differential diagnosis includes however is not limited to: Heart block, sick sinus syndrome, symptomatic bradycardia, electrolyte abnormality, anemia, medication reaction Patient appears generally well, vital signs are stable, heart rate is low at 51. Patient does look slightly pale. Presenting to the emerged department after a syncopal episode that occurred while eating breakfast. Other than fee ling weak, tired, and slightly nauseous, patient is asymptomatic. He denies any fever chills, chest pain. Patient was seen for cardiac workup. He currently does have a loop recorder placed secondary to the multiple PVCs that he is in. This was done at [place]. Patient received 500 cc normal saline that was hung by squad basic labs, chest x-ray, cardiac enzymes x 2. Two-view chest x-ray will be obtained. All radiologic examinations were read, reviewed by the emergency department attending. From these reads, a plan of care will be put in place. During my chart review, dosing of the patient does have a history of bradycardia, and a cardiac visit, Patient remained stable. Laboratory values showed a slight leukocytosis with a white blood count 12.3, PT/INR within normal limits. Chemistries show a stable creatinine of 1.82, BUN 31, patient's blood glucose 139. Initial troponin was 19. Chest x-ray was negative. At this time, I will reach out to the production mechanic at [facility]. Patient's repeat troponin was similar at 19. I did speak with the cardiology office at [place], we did interrogate the patient's loop recorder. I spoke with the [employer] rep, it did show that the patient did have a pause greater than 3 seconds. I then spoke with cardiology, they would like the patient be transferred, possible pacemaker placement early this upcoming week. I spoke with the patient, he is agreeable. At this time, patient be transferred to [facility] in [facility]. Patient rekha stable here. <Dr. Anya Basilio, DO - Last Filed: 12/25/24 12:02> [facility] Lab Data Attestation: I reviewed the patient's lab results. Labs: Laboratory Results - last 24 hr 12/20/24 12/20/24 12/20/24 11:30 13:05 13:50 WBC 12.3 H RBC 4.77 Hgb 14.5 Hct 41.5 MCV 87.0 MCH 30.4 MCHC 34.9 RDW Std Deviation 43.7 RDW Coeff of Jd 13.7 Plt Count 279 MPV 10.4 PT 13.8 INR 1.0 Sodium 137 Potassium 3.8 Chloride Direct 104 Carbon Dioxide 17.6 L Anion Gap 15 BUN 31 H Creatinine 1.82 H Estim Creat Clear Calc 32.31 Est GFR (MDRD) Non-Af 37 L BUN/Creatinine Ratio 16.8 Glucose 139 H Calcium 9.4 Troponin T High Sens 19 Troponin T Hi Sens 2 Hr 19 Troponin T Hi Sens 2Hr Delta 0 Urine Color Yellow Urine Clarity Clear Urine pH 6.5 Ur Specific [place] 1.010 Urine Protein 30 H Urine Glucose (UA) Normal Urine Ketones Negative Urine Occult Blood Negative Urine Nitrite Negative Urine Bilirubin Negative Urine Urobilinogen 1 H Ur Leukocyte Esterase Negative Urine RBC 0 SEEN Urine WBC 0 SEEN Ur Squamous Epith Cells 0 SEEN Urine Bacteria 0 SEEN Urine Mucus 0 SEEN Radiography Chest X-Ray - ED: Read by ED Physician, Read by Radiologist, No Acute Disease and - (Loop recorder noted ) Diagnostic Testing: Clinical Impression(s) from Imaging Studies Chest X-Ray 12/20/24 11:24 IMPRESSION: No radiographic evidence of acute cardiopulmonary disease Reading Location: [facility] Management Discussion w/another healthcare provider: Paleologist ([facility] ) Treatment and Re-Evaluation :: Differential diagnosis includes however is not limited to: Heart block, sick sinus syndrome, symptomatic bradycardia, electrolyte abnormality, anemia, medication reaction Patient appears generally well, vital signs are stable, heart rate is low at 51. Patient does look slightly pale. Presenting to the emerged department after a syncopal episode that occurred while eating breakfast. Other than feeling weak, tired, and slightly nauseous, patient is asymptomatic. He denies any fever chills, chest pain. Patient was seen for cardiac workup. He currently does have a loop recorder placed secondary to the multiple PVCs that he is in. This was done at [place]. Patient received 500 cc normal saline that was hung by squad basic labs, chest x-ray, cardiac enzymes x 2. Two-view chest x-ray will be obtained. All radiologic examinations were read, reviewed by the emergency department attending. From these reads, a plan of care will be put in place. During my chart review, dosing of the patient does have a history of bradycardi a, and a cardiac visit, Patient remained stable. Laboratory values showed a slight leukocytosis with a white blood count 12.3, PT/INR within normal limits. Chemistries show a stable creatinine of 1.82, BUN 31, patient's blood glucose 139. Initial troponin was 19. Chest x-ray was negative. At this time, I will reach out to the production mechanic at [facility]. Patient's repeat troponin was similar at 19. I did speak with the cardiology office at [place], we did interrogate the patient's loop recorder. I spoke with the [employer] rep, it did show that the patient did have a pause greater than 3 seconds. I then spoke with cardiology, they would like the patient be transferred, possible pacemaker placement early this upcoming week. I spoke with the patient, he is agreeable. At this time, patient be transferred to [facility] in [facility]. Patient rekha stable here. I have personally performed a face to face assessment of the patient and have reviewed the BENITO Note. I performed a substantive portion of the visit including all aspects of the following. My christian findings include: History is patient is a very pleasant 84-year-old male presenting for syncopal episode. He was at breakfast with his when he suddenly felt dizzy and had a syncopal episode. His was there with them and was able to lower him on the bed she was sitting on so he did not injure himself. He then came around. He was sweaty at the time. He states he does not remember much until arriving to the emergency room however. He has a history of syncope and actually just had a loop recorder implanted for further evaluation of these episodes and to determine if he requires a pacemaker through [place] [facility]. Upon arrival patient is bradycardic and normotensive. While in the ER he states he started to feel much better and feeling back to baseline. Patient had normocephalic/atraumatic. Slightly pale appearing. Which mucosal membranes. Neck is supple with no JVD. Heart bradycardic with regular rhythm. Lungs good auscultation bilaterally with no rhonchi present. Abdomen soft and nontender. Equal pulses, radial and DP. While in the emergency room patient clinically start to look better and his color improved. Case is discussed with cardiology at [facility] (where his loop recorder was placed). They request interrogation and apparently with [employer] loop recorder's we can use our pacemaker interrogated for this. This is performed and patient was found to have had sinus pause greater than 3 seconds. Patient be transferred to [facility] for likely pacemaker placement and further cardiac monitoring/evaluation. Patient will be transferred and he is agreeable with this. Patient remains asymptomatic in emergency room with no arrhythmia. Is kept on continuous telemetry monitoring. His workup otherwise normal in the emergency room. Other additions or changes: [None] Discharge Plan Triage Chief Complaint: Syncope ED Midlevel Provider: Brayden Mcguire ED Provider: Anya Basilio Dx/Rx/DC Orders Clinical Impression: Syncopal episodes, Bradycardia, Arrhythmia, Weakness Prescriptions: No Action rosa isela perkinso 1,000 mg capsule 1,000 mg PO DAILY multivitamin tablet 1 tab PO DAILY cholecalciferol (vitamin D3) 25 mcg/drop ( 1,000 unit/drop) drops 50 mcg PO DAILY levothyroxine 50 mcg tablet 50 mcg PO DAILY Patient Comments: take 1 tablet by mouth every morning magnesium 200 mg tablet 200 mg PO QWEEK metoprolol succinate 25 mg tablet extended release 24 hr 12.5 mg PO DAILY hydrochlorothiazide 12.5 mg capsule 12.5 mg PO DAILY mexiletine 200 mg capsule 200 mg PO Q8H aspirin 81 mg capsule 81 mg PO DAILY Primary Care Provider: Brayden Balderrama Referrals: Brayden Balderrama MD [Primary Care Provider] - Print Language: Faroese Disposition Disposition: Acute Care Hospital Discharge Location: [facility] Discharge Date/Time: 12/20/24 19:00
[2024-12-20 11:43] LABS: Hematocrit 41.5 % (40-54); Hemoglobin 14.5 g/dL (13.0-16.5); Mean Corp Hgb Conc 34.9 g/dL (32-36); Mean Corpuscular Hgb 30.4 pg (27.0-32.0); Mean Platelet Vol. 10.4 fl (6.2-12.0); Platelet Count 279 K/mm3 (150-450); RBC Distribution Width CV 13.7 % (11.6-14.6); RBC Distribution Width SD 43.7 fl (35.1-43.9); Red Blood Count 4.77 M/mm3 (4.6-6.2); White Blood Count 12.3 K/mm3 (4.4-11.0)
[2024-12-20 11:44] LABS: Prothrombin Time (Protime)PT. 13.8 SECONDS (11.7-14.9)
[2024-12-20] MEDS: Ondansetron 4 MG/2 ML Vial IV (11:58)
[2024-12-20 11:59] LABS: Anion Gap 15 (5-15); BUN 31 mg/dL (4-19); BUN/Creat Ratio 16.8 RATIO (10-20); Calcium 9.4 mg/dL (7.6-11.0); Carbon Dioxide 17.6 mmol/L (22.0-29.0); Chloride 104 mmol/L (96-108); Creatinine, Serum 1.82 mg/dL (0.70-1.20); EST Glomerular Filtration Rate 37 (>60); Estimated Creatinine Clearance 32.31 ml/min; Glucose 139 mg/dL (70-99); Potassium 3.8 mmol/L (3.3-5.1); Sodium Level 137 mmol/L (133-145)
[2024-12-20] MEDS: 0.9% Normal Saline (500mL Bag) 500 ML 999 ML IV (12:30)
[2024-12-20 12:45] LABS: Troponin T High Sensitivity 19 ng/L (<=22)
[2024-12-20 13:21] LABS: Bacteria 0 SEEN /hpf (None Seen); Mucous, Urine 0 SEEN /hpf (<or=2+); Squamous Epithelial Cells - UA 0 SEEN /hpf (0-5); White Blood Cells 0 SEEN /hpf (0-5)
[2024-12-20 13:24] LABS: Color, Urine Yellow (Yellow); Glucose, Dipstick Normal (Normal); Ketone-Dipstick Negative (Negative); Leukocyte Esterase-Dipstick Negative /ul (Negative); Nitrite-Dipstick Negative (Negative); Occult Blood-Urine Negative /ul (Negative); Protein-Dipstick 30 mg/dl (Negative); Urine Bilirubin Dipstick Negative (Negative); Urine Clarity Clear (Clear); Urine Urobilinogen 1 mg/dl (Normal); Urine pH 6.5 (5.0 - 8.0)
[2024-12-20 13:32] LABS: Red Blood Cells-Urine 0 SEEN /hpf (0-5)
[2024-12-20 14:30] LABS: TROPONIN VARIANCE 2 HR 0; Troponin T High Sens 2 HR 19 ng/L (<=22)
--- NOTE | 2024-12-20 15:38 | ED.RN ---
ACCEPTED AT [facility]. RM [address] CARDIO STEP DOWN UNIT. RIDE WILL BE HERE AT [phone]
--- NOTE | 2024-12-20 16:08 | ED.RN ---
This RN attempted to call report and was placed on hold for 10 minutes. THis RN will attempt to call report again soon.
[2024-12-20 16:15] LABS: TROPONIN VARIANCE 4 HR 1; Troponin T High Sens 4 HR 18 ng/L (<=22)
--- NOTE | 2024-12-20 16:55 | ED.RN ---
This RN called report to [facility]
== END 2024-12-20 19:00 | disposition short-term general hospital (02) ==
PROVIDERS: Emergency Provider Emergency Medicine; PCP Family Medicine; Visit Provider Emergency Medicine
DX: R55 Syncope and collapse (principal); I48.0 Paroxysmal atrial fibrillation; I10 Essential (primary) hypertension; E78.5 Hyperlipidemia, unspecified; R00.1 Bradycardia, unspecified; Z85.528 Personal history of other malignant neoplasm of kidney; Z90.5 Acquired absence of kidney; Z86.73 Personal history of transient ischemic attack (TIA), and cerebral infarction without residual deficits; E03.9 Hypothyroidism, unspecified; Z79.890 Hormone replacement therapy; Z90.49 Acquired absence of other specified parts of digestive tract; F17.220 Nicotine dependence, chewing tobacco, uncomplicated
CPT/HCPCS: 71046; 80048; 81001; 84484; 85027; 85610; 93005; 96361; 96374; 99285; A4216; J2405

== ENCOUNTER 2025-01-04 12:52 | Emergency (ER) | payer MEDICARE, SELFPAY ==
[2025-01-04] VITALS (8 sets, daily range): BP systolic 101–132; BP diastolic 63–76; PULSE 60–70; RESP 15–19; TEMP 36.3–36.5; O2SAT 97–100; BMI 23.1
--- NOTE | 2025-01-04 13:06 | EKG12_ITS ---
Test Reason : SYNCOPE Blood Pressure : */* mmHG Vent. Rate : 63 BPM Atrial Rate : 63 BPM P-R Int : 178 ms QRS Dur : 122 ms QT Int : 442 ms P-R-T Axes : 119 30 52 degrees QTcB Int : 452 ms AV dual-paced rhythm Abnormal ECG Confirmed by DWAYNE PRINCE, MADDIE ([id number]), editor managing newspaper JOURDAN CHEN ([id number]) on 01/05/2025 8:23:33 AM Referred By: Kehinde Smith Confirmed By: MADDIE RICE MD
--- NOTE | 2025-01-04 13:08 | EX.ED.DYSGE1 ---
HPI <DENIZ Heard - Last Filed: 01/04/25 16:32> History of Present Illness Chief Complaint: Syncope Narrative Narrative: Patient is an 84-year-old male with history of kidney cancer with nephrectomy in 2021. Patient is a recent recipient on December 22, 2024 of a Medtronic pacemaker. The patient was seen here on December 20, 2024 for a syncopal episode, at that time the loop recorder showed a pause of 3 seconds. Patient's cardiology is at [place], he was transferred there and a pacemaker was placed. Patient has been doing well. Patient was at the same restaurant, he started feeling lightheaded, and had a syncopal episode leading over in the trivedi. Patient was brought by EMS. Patient is alert and orient x 4 on arrival. Denies any chest pain, denies any recent infections or fevers or chills. [facility] <DENIZ Heard - Last Filed: 01/04/25 16:32> [facility] Medical History (Updated 01/04/25 @ 16:32 by DENIZ Heard) Cardiac defibrillator in place Hypothyroidism Kidney stones Kidney disease Former smoker Atrial fibrillation Acute hemorrhoid Kidney disease Loss of hearing Wears glasses Cancer Thyroid disease Arthritis Prostate disease History of renal disease Back pain Injury of head and neck Dietary restriction History of diverticulitis Heartburn Chewing tobacco nicotine dependence History of pain when walking Hypertension History of stress test Cardiology follow-up encounter History of echocardiogram Chest pain TIA (transient ischemic attack) GI bleed Paroxysmal atrial fibrillation Essential (primary) hypertension Hyperlipidemia Home Medications ?Medication ?Instructions ?Recorded ?Last Taken ?Type multivitamin 1 tab PO DAILY 07/26/18 Unknown History saw palmetto 1,000 mg capsule 1,000 mg PO DAILY 07/26/18 Unknown History cholecalciferol (vitamin D3) 25 50 mcg PO DAILY 04/25/22 Unknown History mcg/drop (1,000 unit/drop) oral drops levothyroxine 50 mcg tablet 50 mcg PO DAILY 04/25/22 05/10/22 04:30 History magnesium 200 mg tablet 200 mg PO QWEEK 05/17/23 Unknown History aspirin 81 mg capsule 81 mg PO DAILY 12/20/24 Unknown History hydrochlorothiazide 12.5 mg capsule 12.5 mg PO DAILY 12/20/24 Unknown History metoprolol succinate 25 mg 12.5 mg PO DAILY 12/20/24 Unknown History tablet,extended release 24 hr mexiletine 200 mg capsule 200 mg PO Q8H 12/20/24 Unknown History Allergy/AdvReac Type Severity Reaction Status Date / Time animal dander Allergy unknown Verified 12/20/24 11:25 mold Allergy unknown Verified 12/20/24 11:25 pollen extracts Allergy unknown Verified 12/20/24 11:25 Milk Containing Products AdvReac Mild Abd Verified 12/20/24 15:51 (Dairy) cramps/diarrhea amoxicillin AdvReac Nausea/vomi Verified 12/20/24 11:25 ting lisinopril AdvReac Headaches Verified 12/20/24 11:25 Poultry AdvReac Abd Verified 12/20/24 15:51 cramps/diarrhea Family History Father Myocardial infarction from [place] age 56 Mother Heart disease CHF Grandfather Myocardial infarction from [place] age 53 Surgical History History of cholecystectomy History of nephrectomy Hx of colonoscopy Hx of hand surgery Hx laparoscopic cholecystectomy History of nasal septoplasty History of appendectomy Social History Smoking Status: Current some day smoker tobacco type: smokeless tobacco Smokeless tobacco user: chewing tobacco how long ago did patient quit smokin alcohol intake: never substance use type: does not use caffeine: Yes Type: coffee Number of servings: 2, tea Number of servings: 2 and other ROS <DENIZ Heard - Last Filed: 01/04/25 16:32> ROS ED ROS Narrative Constitutional: Negative for fever, chills, weight loss, weakness Eyes: Negative for vision loss, vision change, double vision ENT: Negative for any sore throat, ear pain, congestion Cardiovascular: Negative for any chest pain, tightness, palpitations Respiratory: Negative for any cough, sputum production, hemoptysis, dyspnea, dyspnea on exertion, orthopnea Gastrointestinal: Negative for any abdominal pain, nausea, vomiting, diarrhea, constipation, blood in stool, blood in vomit : Negative for any urinary frequency, dysuria, retention, blood in urine Muscle skeletal: Negative for any neck pain, back pain Neurological: Negative for any headache. Positive for syncope Skin: Negative for any rashes, itching, abrasions, lacerations Psychiatric: Negative for any depression, anxiety, stress, suicidal ideation, homicidal ideation Hematologic: Negative for any excessive bruising, easy bleeding EXAM <DENIZ Heard - Last Filed: 01/04/25 16:32> Physical Exam Narrative Exam Narrative: Vital signs reviewed. Patient's vital signs are stable, patient is in no obvious distress HEET: Head normocephalic atraumatic, TMs clear bilaterally. Posterior pharynx is clear, moist mucous membranes. Nares clear bilaterally. Neck: Supple with no lymphadenopathy or tenderness. No signs of meningismus. Cardiac: Regular rate and rhythm no murmurs gallops or rubs, equal peripheral pulses bilaterally. Respiratory: Lungs clear to auscultation bilaterally. No chest tenderness. The insertion site of the pacemaker to the left upper chest looks well-appearing, there is no evidence of any erythema, infection. Abdomen: Soft, nontender, nondistended. No abdominal bruit or pulsatile masses. No hepatosplenomegaly Extremities: No peripheral edema, no signs of gross trauma or deformity. Active full range of motion of all extremities. Neuro: Cranial nerves II through XII intact, no focal neurological deficits. Skin: Clean dry and intact with no rash, purpura, petechiae, vesicles or pustules. Backs/flank: No CVA tenderness, no midline spinal tenderness, no deformity. Psych: Normal mood and affect. No SI, HI or acute psychosis. Const Vital Signs: 01/04/25 12:54 01/04/25 12:54 01/04/25 13:02 Temperature 97.4 F L 97.7 F L Temperature Source Axillary Axillary Pulse Rate 70 64 67 Respiratory Rate 19 H 16 15 Respiratory Effort Respiratory Pattern Blood Pressure 106/71 132/76 H 127/69 H Blood Pressure Mean 82 94 88 Pulse Ox 98 100 100 Oxygen Delivery Method Nasal Cannula Room Air Room Air 01/04/25 13:05 01/04/25 13:06 01/04/25 14:00 Temperature Temperature Source Pulse Rate 64 Respiratory Rate 17 Respiratory Effort Normal Respiratory Pattern Normal Blood Pressure 119/63 Blood Pressure Mean 81 Pulse Ox 100 97 Oxygen Delivery Method Room Air Room Air 01/04/25 14:51 01/04/25 15:00 01/04/25 16:00 Temperature 97.4 F L 97.7 F L 97.7 F L Temperature Source Temporal Temporal Temporal Pulse Rate 62 60 60 Respiratory Rate 16 16 16 Respiratory Effort Respiratory Pattern Blood Pressure 105/65 109/64 101/68 Blood Pressure Mean 78 79 79 Pulse Ox 97 98 98 Oxygen Delivery Method Room Air Room Air 01/04/25 16:35 Temperature 97.6 F L Temperature Source Pulse Rate 62 Respiratory Rate 17 Respiratory Effort Respiratory Pattern Blood Pressure 113/71 Blood Pressure Mean 85 Pulse Ox 98 Oxygen Delivery Method Positive well nourished and well developed General Appearance ED: well developed <Dr. Kehinde Smith DO - Last Filed: 01/04/25 21:05> Physical Exam Const Vital Signs: 01/04/25 12:54 01/04/25 12:54 01/04/25 13:02 Temperature 97.4 F L 97.7 F L Temperature Source Axillary Axillary Pulse Rate 70 64 67 Respiratory Rate 19 H 16 15 Respiratory Effort Respiratory Pattern Blood Pressure 106/71 132/76 H 127/69 H Blood Pressure Mean 82 94 88 Pulse Ox 98 100 100 Oxygen Delivery Method Nasal Cannula Room Air Room Air 01/04/25 13:05 01/04/25 13:06 01/04/25 14:00 Temperature Temperature Source Pulse Rate 64 Respiratory Rate 17 Respiratory Effort Normal Respiratory Pattern Normal Blood Pressure 119/63 Blood Pressure Mean 81 Pulse Ox 100 97 Oxygen Delivery Method Room Air Room Air 01/04/25 14:51 01/04/25 15:00 01/04/25 16:00 Temperature 97.4 F L 97.7 F L 97.7 F L Temperature Source Temporal Temporal Temporal Pulse Rate 62 60 60 Respiratory Rate 16 16 16 Respiratory Effort Respiratory Pattern Blood Pressure 105/65 109/64 101/68 Blood Pressure Mean 78 79 79 Pulse Ox 97 98 98 Oxygen Delivery Method Room Air Room Air 01/04/25 16:35 Temperature 97.6 F L Temperature Source Pulse Rate 62 Respiratory Rate 17 Respiratory Effort Respiratory Pattern Blood Pressure 113/71 Blood Pressure Mean 85 Pulse Ox 98 Oxygen Delivery Method MDM <DENIZ Heard - Last Filed: 01/04/25 16:32> MDM Lab Data Labs: Laboratory Results - last 24 hr 01/04/25 01/04/25 13:00 15:24 WBC 11.0 RBC 4.82 Hgb 14.7 Hct 41.7 MCV 86.5 MCH 30.5 MCHC 35.3 RDW Std Deviation 42.3 RDW Coeff of Jd 13.9 Plt Count 297 MPV 10.4 Immature Gran % (Auto) 0.400 Neut % (Auto) 40.1 L Lymph % (Auto) 43.2 H Fentress % (Auto) 11.4 H Eos % (Auto) 3.9 Baso % (Auto) 1.0 Absolute Neuts (auto) 4.4 Absolute Lymphs (auto) 4.77 H Nucleated RBC % 0 PT 13.3 INR 1.0 Sodium 136 Potassium 4.3 Chloride 103 Carbon Dioxide 17.5 L Anion Gap 16 H BUN 28 H Creatinine 1.99 H Estim Creat Clear Calc 29.55 L Est GFR (MDRD) Non-Af 33 L BUN/Creatinine Ratio 14.2 Glucose 116 H Calcium 9.5 Troponin T High Sens 28 H D Troponin T Hi Sens 2 Hr 19 Radiography Diagnostic Testing: Clinical Impression(s) from Imaging Studies Chest X-Ray 01/04/25 13:15 IMPRESSION: No acute airspace abnormality. Reading [facility] EKG Dual pacemaker, rate 63 bpm: Attestation: I personally reviewed and interpreted this EKG as follows: Interpretation: Sinus Rhythm Comments: 63 bpm, AL interval 178 ms, QRS duration 122 ms, no acute ST elevation, no acute infarct noted. Treatment and Re-Evaluation :: Differential diagnosis includes however is not limited to: Failed pacemaker, pacemaker failed to capture, electrolyte abnormality, dehydration, vasovagal syncope, PE Patient on initial arrival to the ER is alert and orient x 4. Vital signs are stable. Presenting to the emergency department for syncopal episode, history of this in the past, recent pacemaker placed December 22, 2024. Patient does have his cardiology team at [place]. Patient received a cardiac workup. Patient be given IV fluids, CBC BMP, PT/INR, chest x-ray, troponin high-sensitivity x 2. The Medtronic pacemaker will be interrogated. Patient will need to be reevaluated, possible we will reach out to [place] cardiology. All radiologic examinations were read, reviewed by the emergency department attending. From these reads, a plan of care will be put in place. Patient's laboratory values show a normal CBC, patient's PT was 13.3 and INR 1.0. Patient's creatinine was slightly elevated at baseline at 1.99, patient is usually 1.86. Patient's initial troponin was 28, repeat was 19, this is negative. Secondary to the patient having recent pacemaker placed on December 22, 2024, I will reach out to cardiology. This will be at [facility] where his cardiology team is. Spoke with cardiology from [place]. We went over the interrogation as well as the patient's workup today. Patient is able to get up and have a steady gait. They believe the patient is stable for discharge and can follow-up outpatient in the office. I spoke with the patient as well as the patient's daughter they are both in agreement. At this time, patient stable for discharge. Strict return for any worsening symptoms <Dr. Kehinde Smith, DO - Last Filed: 01/04/25 21:05> [facility] Narrative Medical decision making narrative: I have personally performed a face to face assessment of the patient and have reviewed the BENITO Note. I performed a substantive portion of the visit including all aspects of the following. My christian findings include: History: Patient presents with syncopal episode that occurred today. Patient states he was sitting in a restaurant when he felt lightheaded and passed out. Patient does not know exactly how long he was out for. Patient states that when he woke up his was on the phone with 911. Patient states his daughter was there as well. Patient had a similar episode earlier this month and had a pacemaker placed last week. On his prior episode, he was noted to have a 3-second pause on his loop recorder. Because of this, the pacemaker was inserted earlier this week. Patient was doing well after this. Patient states he had a similar episode a couple days ago where he felt lightheaded and felt like he might pass out. Patient states he was able to lower his head and he felt better after that and did not actually pass out at that time. Patient admits to some rhinorrhea. Patient denies any chest pain. Patient denies any palpitations. Exam: Vital signs are stable. Patient is afebrile. Patient is in no acute distress. Oral mucosa is pink and moist. Neck is supple. Trachea is midline. There is no JVD. Heart was regular rate and rhythm. Lungs are clear and equal bilaterally. There is good respiratory effort noted. Abdomen is soft. Bowel sounds are normal. There is no tenderness. Cranial nerves II through XII are intact. There are no focal motor or sensory deficits noted. Medical Decision Making: Differential diagnosis includes cardiac dysrhythmia, cardiac ischemia, pneumonia, electrolyte abnormality, cardiomyopathy, and anxiety. EKG will be obtained to assess for cardiac dysrhythmia and cardiac ischemia. Chest x-ray will be obtained to assess for pneumonia and bronchitis. CBC will be obtained to assess for leukocytosis and anemia. Basic metabolic profile will be obtained to assess for electrolyte abnormality and renal function. High-sensitivity troponin will be obtained to assess for cardiac ischemia. 2-hour repeat high-sensitivity troponin will be obtained to assess for ongoing cardiac ischemia. PT with INR PTT will be obtained to assess for coagulopathy. Patient pacemaker was interrogated and there were no abnormalities noted. EKG was obtained. There was an AV sequential paced rhythm with a rate of 63. There are no acute ST or T wave changes noted. Portable 1 view chest x-ray was obtained. On my independent interpretation, lung marroquin are clear. There is normal cardiac silhouette. Bony thorax is normal. There is no acute process noted. Radiologist also interpreted the x-ray and agrees. CBC was reviewed and was within normal limits. Basic metabolic profile was reviewed. BUN was 28 creatinine was 1.99. These are consistent with previous results. PT was INR was reviewed and was within normal limits. Initial high-sensitivity troponin was reviewed and was slightly elevated at 28. 2-hour repeat high-sensitivity troponin was reviewed and was normal at 19. Patient was advised of his findings. Patient had no further episodes of syncope or presyncope here. Case was discussed with his implementation consultant at [facility]. He had no fever the recommendation. Patient was instructed to follow-up as an outpatient. Patient is agreeable with this. This patient understood and comfortable with the plan. All questions were answered. Lab Data Labs: Laboratory Results - last 24 hr 01/04/25 01/04/25 13:00 15:24 WBC 11.0 RBC 4.82 Hgb 14.7 Hct 41.7 MCV 86.5 MCH 30.5 MCHC 35.3 RDW Std Deviation 42.3 RDW Coeff of Jd 13.9 Plt Count 297 MPV 10.4 Immature Gran % (Auto) 0.400 Neut % (Auto) 40.1 L Lymph % (Auto) 43.2 H Fentress % (Auto) 11.4 H Eos % (Auto) 3.9 Baso % (Auto) 1.0 Absolute Neuts (auto) 4.4 Absolute Lymphs (auto) 4.77 H Nucleated RBC % 0 PT 13.3 INR 1.0 Sodium 136 Potassium 4.3 Chloride 103 Carbon Dioxide 17.5 L Anion Gap 16 H BUN 28 H Creatinine 1.99 H Estim Creat Clear Calc 29.55 L Est GFR (MDRD) Non-Af 33 L BUN/Creatinine Ratio 14.2 Glucose 116 H Calcium 9.5 Troponin T High Sens 28 H D Troponin T Hi Sens 2 Hr 19 Radiography Diagnostic Testing: Clinical Impression(s) from Imaging Studies Chest X-Ray 01/04/25 13:15 IMPRESSION: No acute airspace abnormality. Reading Location[facility] Discharge Plan Triage Chief Complaint: Syncope ED Midlevel Provider: Brayden Mcguire ED Provider: Kehinde Smith Dx/Rx/DC Orders Clinical Impression: Syncope, vasovagal, Pacemaker Instructions: Dizziness Fainting Causes, ED Fainting, Vagal Reaction Prescriptions: No Action saw palmetto 1,000 mg capsule 1,000 mg PO DAILY multivitamin tablet 1 tab PO DAILY cholecalciferol (vitamin D3) 25 mcg/drop ( 1,000 unit/drop) drops 50 mcg PO DAILY levothyroxine 50 mcg tablet 50 mcg PO DAILY Patient Comments: take 1 tablet by mouth every morning magnesium 200 mg tablet 200 mg PO QWEEK metoprolol succinate 25 mg tablet extended release 24 hr 12.5 mg PO DAILY hydrochlorothiazide 12.5 mg capsule 12.5 mg PO DAILY mexiletine 200 mg capsule 200 mg PO Q8H aspirin 81 mg capsule 81 mg PO DAILY Primary Care Provider: Brayden Balderrama Referrals: Brayden Balderrama MD [Primary Care Provider] - Activity Restrictions/Additional Instructions: Please continue to follow-up with cardiology at [place]. Return for any worsening syncopal episodes. Maintain hydration, get up and change positions slowly. Print Language: Arabic Disposition Disposition: Home, Self Care Discharge Date/Time: 01/04/25 16:36
--- NOTE | 2025-01-04 13:08 | ED.RN ---
PT HAD SYNCOPAL EPISODE WHILE OUT TO EAT. HE COULD FEEL DIZZY AND WEAK AND TOLD HIS HE DIDN'T FEEL WELL AND THEY CALLED THE [facility]. RECENT PLACEMENT OF CARDIAC DEFIB ON 12/22/24 BRAND IS [employer]. EMS STATED HIS HR WAS IN THE 40'S. UPON ARRIVAL PTS HR IS PACING AT 61.
[2025-01-04] MEDS: 0.9% Normal Saline (1000mL) 1,000 ML 250 ML IV (13:15)
--- NOTE | 2025-01-04 13:15 | RAD_ITS ---
PROCEDURE: Chest radiograph REASON FOR EXAM: CHEST PAIN TECHNIQUE: Frontal view of the chest. COMPARISON: None. FINDINGS: Left cardiac pacer in place. Cardiomediastinal silhouette is within normal limits. Lungs are clear. No sizable pneumothorax. RAD/Chest 1 View (Portable) IMPRESSION: No acute airspace abnormality. Reading Location: [facility]
[2025-01-04 13:20] LABS: Absolute Lymphocyte Count 4.77 X10^3/uL (0.83-4.51); Absolute Neutrophil Count 4.4 X10^3/uL (2.0-7.7); Basophil# 0.11 X10^3/uL; Eosinophil# 0.43 X10^3/uL; Eosinophils% 3.9 % (0-5); Hematocrit 41.7 % (40-54); Hemoglobin 14.7 g/dL (13.0-16.5); Lymphocyte # 4.77 X10^3/ul (0.83-4.51); Lymphocyte % 43.2 % (19-41); Mean Corp Hgb Conc 35.3 g/dL (32-36); Mean Corpuscular Hgb 30.5 pg (27.0-32.0); Mean Corpuscular Volume 86.5 fL (80-94); Mean Platelet Vol. 10.4 fl (6.2-12.0); Monocyte# 1.26 X10^3/uL; Monocyte% 11.4 % (0-10); NRBC Flagged by Analyzer 0 % (0-5); Neutrophil # 4.42 X10^3/uL (2.7-7.7); Neutrophil % 40.1 % (47-70); Platelet Count 297 K/mm3 (150-450); RBC Distribution Width CV 13.9 % (11.6-14.6); RBC Distribution Width SD 42.3 fl (35.1-43.9); Red Blood Count 4.82 M/mm3 (4.6-6.2)
[2025-01-04 13:32] LABS: Prothrombin Time (Protime)PT. 13.3 SECONDS (11.7-14.9)
[2025-01-04 13:36] LABS: Anion Gap 16 (5-15); BUN 28 mg/dL (4-19); BUN/Creat Ratio 14.2 RATIO (10-20); Calcium,Total 9.5 mg/dL (7.6-11.0); Carbon Dioxide 17.5 mmol/L (21.0-32.0); Chloride 103 mmol/L (98-108); Creatinine, Serum 1.99 mg/dL (0.70-1.20); EST Glomerular Filtration Rate 33 (>60); Estimated Creatinine Clearance 29.55 ml/min (50-250); Glucose 116 mg/dL (70-99); Potassium 4.3 mmol/L (3.3-5.1); Sodium Level 136 mmol/L (133-145); Troponin T High Sensitivity 28 ng/L (<=22)
[2025-01-04 16:10] LABS: Troponin T High Sens 2 HR 19 ng/L (<=22)
== END 2025-01-04 16:36 | disposition home or self-care (01) ==
PROVIDERS: Nurse Practitioner; Emergency Provider Emergency Medicine; PCP Family Medicine; Referring Provider Emergency Medicine; Visit Provider Emergency Medicine
DX: R55 Syncope and collapse (principal); I48.0 Paroxysmal atrial fibrillation; Z95.0 Presence of cardiac pacemaker; I10 Essential (primary) hypertension; Z85.528 Personal history of other malignant neoplasm of kidney; Z86.73 Personal history of transient ischemic attack (TIA), and cerebral infarction without residual deficits; E78.5 Hyperlipidemia, unspecified; Z79.899 Other long term (current) drug therapy; Z79.82 Long term (current) use of aspirin; E03.9 Hypothyroidism, unspecified; Z79.890 Hormone replacement therapy; Z90.49 Acquired absence of other specified parts of digestive tract; Z90.5 Acquired absence of kidney; F17.220 Nicotine dependence, chewing tobacco, uncomplicated
CPT/HCPCS: 71045; 80048; 84484; 85025; 85610; 93005; 96360; 96361; 99285

== ENCOUNTER 2025-01-12 13:06 | Emergency (ER) | payer MEDICARE, SELFPAY ==
[2025-01-12] VITALS (9 sets, daily range): BP systolic 104–142; BP diastolic 64–86; PULSE 67–122; RESP 16–19; TEMP 35.6–36.3; O2SAT 96–99; BMI 23.0
--- NOTE | 2025-01-12 14:22 | EKG12_ITS ---
Test Reason : Blood Pressure : */* mmHG Vent. Rate : 63 BPM Atrial Rate : 63 BPM P-R Int : 174 ms QRS Dur : 124 ms QT Int : 436 ms P-R-T Axes : 69 -8 25 degrees QTcB Int : 446 ms Atrial-sensed ventricular-paced rhythm Abnormal ECG Confirmed by DWAYNE PRINCE, MADDIE ([id number]), managing editor MYRTLE MCKEE ([id number]) on 01/14/2025 8:16:44 AM Referred By: KEREN Confirmed By: MADDIE RICE MD
[2025-01-12 14:50] LABS: Absolute Lymphocyte Count 1.33 X10^3/uL (0.83-4.51); Basophil# 0.09 X10^3/uL; Basophil% 0.8 % (0-1); Eosinophil# 0.31 X10^3/uL; Eosinophils% 2.8 % (0-5); Hematocrit 40.9 % (40-54); Hemoglobin 14.1 g/dL (13.0-16.5); Lymphocyte # 1.33 X10^3/ul (0.83-4.51); Lymphocyte % 12.2 % (19-41); Mean Corp Hgb Conc 34.5 g/dL (32-36); Mean Corpuscular Hgb 30.7 pg (27.0-32.0); Mean Corpuscular Volume 88.9 fL (80-94); Mean Platelet Vol. 9.8 fl (6.2-12.0); Monocyte# 1.13 X10^3/uL; Monocyte% 10.3 % (0-10); NRBC Flagged by Analyzer 0 % (0-5); Neutrophil # 7.98 X10^3/uL (2.7-7.7); Neutrophil % 73.1 % (47-70); Platelet Count 239 K/mm3 (150-450); RBC Distribution Width CV 13.5 % (11.6-14.6); White Blood Count 10.9 K/mm3 (4.4-11.0)
[2025-01-12 14:59] LABS: Partial Thromboplast Time 28.5 Seconds (24.1-36.2)
[2025-01-12 15:00] LABS: International Normalized Ratio 1.2; Prothrombin Time (Protime)PT. 15.2 SECONDS (11.7-14.9)
[2025-01-12] MEDS: 0.9% Normal Saline (1000mL) 1,000 ML 1000 ML IV ×2 (15:00→17:59)
[2025-01-12 15:06] LABS: D-Dimer Quantitative (DVT/PE) 1.66 FEU/ug/m (0.27-0.49)
--- NOTE | 2025-01-12 15:06 | RAD_ITS ---
EXAM: XR Chest, 1 View CLINICAL INDICATION: SYNCOPE TECHNIQUE: Frontal view of the chest. COMPARISON: No relevant prior studies available. FINDINGS: LUNGS AND PLEURAL SPACES: Pulmonary venous congestion. No consolidation. No pneumothorax. HEART: Unremarkable. No cardiomegaly. MEDIASTINUM: Unremarkable. Normal mediastinal contour. BONES/JOINTS: Unremarkable. No acute fracture. TUBES, LINES AND DEVICES: Left-sided cardiac pacemaker. RAD/Chest 1 View (Portable) IMPRESSION: Pulmonary venous congestion. Reading Location: [facility]
--- NOTE | 2025-01-12 15:38 | EX.ED.DYSGE1 ---
HPI History of Present Illness Chief Complaint: Syncope Narrative Narrative: Chief complaint and HPI: Syncope. 84-year-old male with history of kidney cancer with nephrectomy in 2021, recurrent syncope, proximal atrial fibrillation not on anticoagulation, HTN, HLD presents for evaluation of syncope. Patient states that he has been having recurrent syncopal episodes. On December 22/2025 he received a Medtr[employer] pacemaker at [facility]. This was due to syncopal episode and loop recorder showing a pause of 3 seconds. Since placement patient is still having intermittent syncope. On chart review, his last syncopal episode was 01/04 in which she was seen in our emergency department. Ultimately discharged home. Patient states that his home nurse was at his house when he needed to have a bowel movement. He states he was holding it in the chair when he felt lightheaded and as if he was going to pass out. He states he then had a couple second episode of syncope. He denies any fever, chills, shortness of breath, abdominal pain, nausea, vomiting, dysuria. States that he feels like he is at his normal state of health currently. Patient is on metoprolol 12.5 mg daily as well as mexiletine 200 mg twice daily. Review of systems: See HPI Medications: As listed on the chart Allergies: As listed on the chart PFSH: Per chart Vital signs: As listed on the chart. Reviewed. Physical exam: Gen: A&O x3, NAD Head: Normocephalic, atraumatic Eyes: No sclera icterus, conjunctiva clear ENT: Moist mucous membranes Neck: Trachea midline, No JVD CV: RRR, no murmurs, no peripheral edema Resp: Lungs CTA BL, no w/r/c GI: Abd soft, non-distended, non-tender, no r/r/g Musc: Full ROM, no deformity Skin: Warm, dry Neuro: Alert, oriented, grossly intact, sensation intact Psych: Cooperative, appropriate mood and affect [facility] Medical History (Updated 01/12/25 @ 00:02 by Background Daemon) Cardiac defibrillator in place Hypothyroidism Kidney stones Kidney disease Former smoker Atrial fibrillation Acute hemorrhoid Kidney disease Loss of hearing Wears glasses Cancer Thyroid disease Arthritis Prostate disease History of renal disease Back pain Injury of head and neck Dietary restriction History of diverticulitis Heartburn Chewing tobacco nicotine dependence History of pain when walking Hypertension History of stress test Cardiology follow-up encounter History of echocardiogram Chest pain TIA (transient ischemic attack) GI bleed Paroxysmal atrial fibrillation Essential (primary) hypertension Hyperlipidemia Home Medications ?Medication ?Instructions ?Recorded ?Last Taken ?Type multivitamin 1 tab PO DAILY 07/26/18 Unknown History saw palmetto 1,000 mg capsule 1,000 mg PO DAILY 07/26/18 Unknown History cholecalciferol (vitamin D3) 25 50 mcg PO DAILY 04/25/22 Unknown History mcg/drop (1,000 unit/drop) oral drops levothyroxine 50 mcg tablet 50 mcg PO DAILY 04/25/22 05/10/22 04:30 History magnesium 200 mg tablet 200 mg PO QWEEK 05/17/23 Unknown History aspirin 81 mg capsule 81 mg PO DAILY 12/20/24 Unknown History hydrochlorothiazide 12.5 mg capsule 12.5 mg PO DAILY 12/20/24 Unknown History metoprolol succinate 25 mg 12.5 mg PO DAILY 12/20/24 Unknown History tablet,extended release 24 hr mexiletine 200 mg capsule 200 mg PO Q8H 12/20/24 Unknown History Allergy/AdvReac Type Severity Reaction Status Date / Time animal dander Allergy unknown Verified 12/20/24 11:25 mold Allergy unknown Verified 12/20/24 11:25 pollen extracts Allergy unknown Verified 12/20/24 11:25 Milk Containing Products AdvReac Mild Abd Verified 12/20/24 15:51 (Dairy) cramps/diarrhea amoxicillin AdvReac Nausea/vomi Verified 12/20/24 11:25 ting lisinopril AdvReac Headaches Verified 12/20/24 11:25 Poultry AdvReac Abd Verified 12/20/24 15:51 cramps/diarrhea Family History Father Myocardial infarction from [place] age 56 Mother Heart disease CHF Grandfather Myocardial infarction from [place] age 53 Surgical History History of cholecystectomy History of nephrectomy Hx of colonoscopy Hx of hand surgery Hx laparoscopic cholecystectomy History of nasal septoplasty History of appendectomy Social History Smoking Status: Current some day smoker tobacco type: smokeless tobacco Smokeless tobacco user: chewing tobacco how long ago did patient quit smokin alcohol intake: never substance use type: does not use caffeine: Yes Type: coffee Number of servings: 2, tea Number of servings: 2 and other EXAM Physical Exam Const Vital Signs: 01/12/25 13:07 01/12/25 13:14 01/12/25 14:06 Temperature 97.4 F L 96.0 F L Temperature Source Axillary Axillary Pulse Rate 103 H 85 Pulse Rate [Lying] Pulse Rate [Sitting (for 1 minute prior to obtaining)] Pulse Rate [Standing (for 1 minute prior to obtaining)] Respiratory Rate 16 19 H Respiratory Effort Normal Non-Labored Respiratory Pattern Normal Blood Pressure 110/80 104/66 Blood Pressure [Lying] Blood Pressure [Sitting (for 1 minute prior to obtaining)] Blood Pressure [Standing (for 1 minute prior to obtaining)] Blood Pressure Mean 90 78 Blood Pressure Mean [Lying] Blood Pressure Mean [Sitting (for 1 minute prior to obtaining)] Blood Pressure Mean [Standing (for 1 minute prior to obtaining)] Pulse Ox 99 98 Oxygen Delivery Method Room Air Room Air 01/12/25 14:06 01/12/25 15:00 01/12/25 16:00 Temperature Temperature Source Pulse Rate 82 83 92 Pulse Rate [Lying] Pulse Rate [Sitting (for 1 minute prior to obtaining)] Pulse Rate [Standing (for 1 minute prior to obtaining)] Respiratory Rate 16 18 18 Respiratory Effort Respiratory Pattern Blood Pressure 132/72 H 127/86 H 117/77 Blood Pressure [Lying] Blood Pressure [Sitting (for 1 minute prior to obtaining)] Blood Pressure [Standing (for 1 minute prior to obtaining)] Blood Pressure Mean 92 99 90 Blood Pressure Mean [Lying] Blood Pressure Mean [Sitting (for 1 minute prior to obtaining)] Blood Pressure Mean [Standing (for 1 minute prior to obtaining)] Pulse Ox 96 96 96 Oxygen Delivery Method Room Air Room Air Room Air 01/12/25 16:32 01/12/25 16:54 01/12/25 18:00 Temperature Temperature Source Pulse Rate 122 H 67 Pulse Rate [Lying] 90 Pulse Rate [Sitting (for 1 minute prior to obtaining)] 89 Pulse Rate [Standing (for 1 minute prior to obtaining)] 73 Respiratory Rate 18 18 Respiratory Effort Respiratory Pattern Blood Pressure 104/73 124/64 H Blood Pressure [Lying] 120/76 Blood Pressure [Sitting (for 1 minute prior to obtaining)] 136/67 H Blood Pressure [Standing (for 1 minute prior to obtaining)] 119/79 Blood Pressure Mean 83 84 Blood Pressure Mean [Lying] 90 Blood Pressure Mean [Sitting (for 1 minute prior to obtaining)] 90 Blood Pressure Mean [Standing (for 1 minute prior to obtaining)] 92 Pulse Ox 96 98 Oxygen Delivery Method Room Air Room Air MDM MDM MDM Narrative Medical decision making narrative: 84-year-old male with history of kidney cancer with nephrectomy in 2021, recurrent syncope, proximal atrial fibrillation not on anticoagulation, HTN, HLD presents for evaluation of syncope. Differential diagnosis includes but is not limited to failed pacemaker, pacemaker failed to capture, electrolyte abnormality, ACS, PE, arrhythmia, UTI. Patient is currently asymptomatic. He is mildly tachycardic otherwise vitals are stable. NS bolus ordered. Cardiac workup ordered. Medtronic pacemaker was interrogated without any reported arrhythmias. Orthostatic vital signs negative. CBC without leukocytosis or anemia. INR 1.2. BMP with baseline CKD. Patient is D-dimer is elevated at 1.66. Cannot rule out PE therefore CTA ordered. Will order another NS bolus to flush contrast. BNP unremarkable. Troponin 23. This is down from 01/04 which was 28. Will get delta. CTA chest negative for PE. 2-hour troponin and UA currently pending. Given that patient follows with cardiology at [facility] I did contact them. I spoke with Dr. Dean. Recommendation is if 2-hour troponin unremarkable okay to discharge home. They will have follow-up with the patient in their office. UA negative for UTI. On reevaluation, patient ambulated without any syncope. Asymptomatic. Vitals stable. Delta troponin still pending. We have called lab multiple times about the 2-hour troponin they originally could not find it. They then found it and now it is running. There has also been issues with labs all day with the reader not working which was the original delay in labs. Plan will be for discharge home if 2-hour troponin negative. Patient was signed out to oncoming physician. He will await result. Patient was updated of all results thus far and the plan. He will be given outpatient order to have creatinine repeated in a couple days given that he received contrast. Follow-up with cardiology and PCP. He confirmed understanding of the plan. Patient was educated to drink plenty of fluids over the next several days as well. Return precautions explained. EKG: Interpreted by me/EM physician: Atrial sensed ventricular paced rhythm. Heart rate 63. Diagnostic: Interpreted by me/EM physician: Chest x-ray without pneumonia, large effusion effusion, cardiomegaly, pneumothorax Impression: 1. Recurrent syncope 2. History of pacemaker Lab Data Labs: Laboratory Results - last 24 hr 01/12/25 01/12/25 14:39 17:39 WBC 10.9 RBC 4.60 Hgb 14.1 Hct 40.9 MCV 88.9 MCH 30.7 MCHC 34.5 RDW Std Deviation 44.0 H RDW Coeff of Jd 13.5 Plt Count 239 MPV 9.8 Immature Gran % (Auto) 0.800 Neut % (Auto) 73.1 H Lymph % (Auto) 12.2 L Pine % (Auto) 10.3 H Eos % (Auto) 2.8 Baso % (Auto) 0.8 Absolute Neuts (auto) 8.0 H Absolute Lymphs (auto) 1.33 Nucleated RBC % 0 PT 15.2 H INR 1.2 APTT 28.5 D-Dimer Quant (PE/DVT) 1.66 H* Sodium 137 Potassium 4.3 Chloride 102 Carbon Dioxide 22.2 Anion Gap 12 BUN 28 H Creatinine 1.74 H Estim Creat Clear Calc 33.75 L Est GFR (MDRD) Non-Af 39 L BUN/Creatinine Ratio 16.0 Glucose 99 Calcium 9.2 Troponin T High Sens 23 H D NT pro BNP II 157 Urine Color Yellow Urine Clarity Clear Urine pH 7.0 Ur Specific Conroy 1.005 Urine Protein 30 H Urine Glucose (UA) Normal Urine Ketones Negative Urine Occult Blood Negative Urine Nitrite Negative Urine Bilirubin Negative Urine Urobilinogen 4 H Ur Leukocyte Esterase Negative Urine RBC 0 SEEN Urine WBC 0-5 SEEN Ur Squamous Epith Cells 0 SEEN Urine Bacteria 0 SEEN Urine Mucus 0 SEEN Radiography Diagnostic Testing: Clinical Impression(s) from Imaging Studies Chest X-Ray 01/12/25 15:06 IMPRESSION: Pulmonary venous congestion. [facility] Chest CTA 01/12/25 16:10 IMPRESSION: No pulmonary embolism. Reading Location: [facility] Discharge Plan Triage Chief Complaint: Syncope ED Provider: Roger Ambrosio Dx/Rx/DC Orders Prescriptions: No Action saw palmdianao 1,000 mg capsule 1,000 mg PO DAILY multivitamin tablet 1 tab PO DAILY cholecalciferol (vitamin D3) 25 mcg/drop ( 1,000 unit/drop) drops 50 mcg PO DAILY levothyroxine 50 mcg tablet 50 mcg PO DAILY Patient Comments: take 1 tablet by mouth every morning magnesium 200 mg tablet 200 mg PO QWEEK metoprolol succinate 25 mg tablet extended release 24 hr 12.5 mg PO DAILY hydrochlorothiazide 12.5 mg capsule 12.5 mg PO DAILY mexiletine 200 mg capsule 200 mg PO Q8H aspirin 81 mg capsule 81 mg PO DAILY Primary Care Provider: Brayden Balderrama Referrals: Brayden Balderrama MD [Primary Care Provider] - Print Language: Belarusian
[2025-01-12 15:42] LABS: Anion Gap 12 (5-15); BUN 28 mg/dL (4-19); Calcium,Total 9.2 mg/dL (7.6-11.0); Carbon Dioxide 22.2 mmol/L (21.0-32.0); Chloride 102 mmol/L (98-108); Creatinine, Serum 1.74 mg/dL (0.70-1.20); EST Glomerular Filtration Rate 39 (>60); Estimated Creatinine Clearance 33.75 ml/min (50-250); Glucose 99 mg/dL (70-99); Potassium 4.3 mmol/L (3.3-5.1); Pro- Brain NATRIURETIC PEPTIDE 157 pg/mL (<=1800); Sodium Level 137 mmol/L (133-145)
--- NOTE | 2025-01-12 16:10 | CT_ITS ---
EXAM: CT Angiography Chest Without and With Intravenous Contrast CLINICAL INDICATION: PE TECHNIQUE: Axial computed tomographic angiography images of the chest without and with intravenous contrast. This CT exam was performed using one or more of the following dose reduction techniques: automated exposure control, adjustment of the mA and/or kV according to patient size, and/or use of iterative reconstruction technique. MIP reconstructed images were created and reviewed. COMPARISON: No relevant prior studies available. FINDINGS: PULMONARY ARTERIES: Unremarkable. No pulmonary embolism. AORTA: Scattered calcified atherosclerotic disease of aorta. No thoracic aortic aneurysm. LUNGS AND PLEURAL SPACES: Lung emphysema/COPD. No mass. No consolidation. No significant effusion. No pneumothorax. HEART: Unremarkable. No cardiomegaly. No significant pericardial effusion. No evidence of RV dysfunction. BONES/JOINTS: No acute fracture. No dislocation. SOFT TISSUES: Unremarkable. LYMPH NODES: Unremarkable. No enlarged lymph nodes. CT/CTA Chest W/WO Contrast IMPRESSION: No pulmonary embolism. Reading Location: [facility]
[2025-01-12 16:49] LABS: Troponin T High Sensitivity 23 ng/L (<=22)
--- NOTE | 2025-01-12 17:31 | PCA ---
CALLED [employer] FOR THE [employer]ARDIO GAUGE MACHINE OPERATOR @ [id number], THEY WILL PAGE OUT AND RETURN THE CALL SOON POSSIBLE
[2025-01-12 17:47] LABS: Bacteria 0 SEEN /hpf (None Seen); Mucous, Urine 0 SEEN /hpf (<or=2+); Squamous Epithelial Cells - UA 0 SEEN /hpf (0-5)
[2025-01-12 17:57] LABS: Color, Urine Yellow (Yellow); Glucose, Dipstick Normal (Normal); Ketone-Dipstick Negative (Negative); Leukocyte Esterase-Dipstick Negative /ul (Negative); Nitrite-Dipstick Negative (Negative); Occult Blood-Urine Negative /ul (Negative); Protein-Dipstick 30 mg/dl (Negative); Specific Gravity, Urine 1.005 (1.002-1.030); Urine Bilirubin Dipstick Negative (Negative); Urine Clarity Clear (Clear); Urine Urobilinogen 4 mg/dl (Normal)
[2025-01-12 18:14] LABS: Red Blood Cells-Urine 0 SEEN /hpf (0-5); White Blood Cells 0-5 SEEN /hpf (0-5)
[2025-01-12 18:49] LABS: Troponin T High Sens 2 HR 21 ng/L (<=22)
== END 2025-01-12 19:33 | disposition home or self-care (01) ==
PROVIDERS: Emergency Provider Surgery; PCP Family Medicine; Visit Provider Surgery
DX: R55 Syncope and collapse (principal); I48.0 Paroxysmal atrial fibrillation; Z87.891 Personal history of nicotine dependence; I10 Essential (primary) hypertension; Z95.0 Presence of cardiac pacemaker; Z85.528 Personal history of other malignant neoplasm of kidney; Z90.5 Acquired absence of kidney; Z79.01 Long term (current) use of anticoagulants; E78.5 Hyperlipidemia, unspecified; Z79.899 Other long term (current) drug therapy; Z86.73 Personal history of transient ischemic attack (TIA), and cerebral infarction without residual deficits; E03.9 Hypothyroidism, unspecified; Z79.890 Hormone replacement therapy; Z90.49 Acquired absence of other specified parts of digestive tract
CPT/HCPCS: 36415; 71045; 71275; 80048; 81001; 83880; 84484; 85025; 85379; 85610; 85730; 93005; 96360; 96361; 99285; Q9967; A4216

== ENCOUNTER → 2025-03-09 | Outpatient (CLI) | payer MEDICARE, SELFPAY ==
[2025-03-09 18:11] LABS: ALB/GLOB Ratio 1.2 RATIO (0.9-2.4); AST(SGOT) 34 U/L (<=37); Alanine Aminotransfer ALT/SGPT 37 U/L (<=46); Albumin, Serum 3.9 g/dL (3.4-4.8); Alkaline Phosphatase 118 U/L (40-129); Anion Gap 11 (5-15); BUN 27 mg/dL (4-19); Calcium,Total 9.3 mg/dL (7.6-11.0); Carbon Dioxide 24.2 mmol/L (21.0-32.0); Chloride 104 mmol/L (98-108); Creatinine, Serum 1.71 mg/dL (0.70-1.20); EST Glomerular Filtration Rate 39 (>60); Free T3 2.5 pg/mL (2.18-3.98); Globulin 3.2 g/dL (2.2-4.2); Glucose 84 mg/dL (70-99); Potassium 4.6 mmol/L (3.3-5.1); Protein, Total 7.1 g/dL (5.9-8.4); Sodium Level 139 mmol/L (133-145); Total Bilirubin 0.58 mg/dL (0.00-1.30)
== END | disposition home or self-care (01) ==
LOC: MFPLAB 14:14
PROVIDERS: PCP Family Medicine; Referring Provider Family Medicine; Visit Provider Family Medicine
DX: I10 Essential (primary) hypertension (principal); E03.9 Hypothyroidism, unspecified
CPT/HCPCS: 36415; 80053; 84439; 84443; 84481

== ENCOUNTER 2025-05-30 10:38 | Observation (INO) | payer MEDICARE, SELFPAY ==
[2025-05-30] VITALS (9 sets, daily range): BP systolic 120–166; BP diastolic 70–84; PULSE 62–75; RESP 12–17; TEMP 36.4–37.2; O2SAT 96–100; BMI 22.1; BMI 24.0; BMI 22.7
--- NOTE | 2025-05-30 10:40 | CM.ED ---
[facility] [employer] Work Date of referral: 05/30/25 Reason for referral: Stroke Alert Patient arrived by squad; no family member's present. Patient provided a history of getting up to use the bathroom, and both legs feeling weak. EMS reported that patient was found on the floor unresponsive by his . Patient stated he is feeling better. Patient taken away form medical treatment. Arianna Ambriz, [employer], CATALYST IMPREGNATOR
--- NOTE | 2025-05-30 10:41 | EKG12_ITS ---
Test Reason : STROKE Blood Pressure : */* mmHG Vent. Rate : 86 BPM Atrial Rate : 86 BPM P-R Int : 178 ms QRS Dur : 126 ms QT Int : 420 ms P-R-T Axes : 28 26 88 degrees QTcB Int : 502 ms AV dual-paced rhythm Abnormal ECG Confirmed by MADDIE RICE MD ([id number]), news video editor JOURDAN CHEN ([id number]) on 06/01/2025 1:10:09 PM Referred By: Confirmed By: MADDIE RICE MD
--- NOTE | 2025-05-30 10:41 | CT_ITS ---
PROCEDURE: STROKE BRAIN/HEAD WITHOUT CONT 05/30/2025 REASON FOR EXAM: NEURO DEFICIT, ACUTE, STROKE SUSPECTED TECHNIQUE: STROKE BRAIN/HEAD WITHOUT CONT Coronal and Sagittal reconstruction series were provided. One or more dose reduction techniques were used (e.g., Automated exposure control, adjustment of the mA and/or kV according to patient size, use of iterative reconstruction technique. RADIATION DOSE SUMMARY: CTDlvol: 45 mGy DLP: 846 mGycm COMPARISON: October 06, 2024 FINDINGS: Brain: There is no evidence of hemorrhage, acute ischemia or mass. No extra- axial fluid collection, midline shift or mass effect. 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 Low-density is seen in the periventricular white matter and deep white matter of the frontal and parietal lobes. CSF Spaces: Mild generalized cerebral atrophy Sinuses/Mastoids: Clear Bones: No fracture Cavernous and supraclinoid internal carotid artery atherosclerosis and also atherosclerotic change of the V4 segments. CT/STROKE Brain/Head without Cont IMPRESSION: 1. No evidence of intracranial hemorrhage or acute ischemia. 2. Changes of chronic microvascular ischemia and volume loss. Findings and impression of this report were called directly to Dr. Hernandez at 10: 55 am (Eastern standard time). Reading Location: [id number]
--- NOTE | 2025-05-30 10:43 | ED.VIS.STROK ---
HPI History of Present Illness Chief Complaint: Stroke Alert Informant: patient and EMS Onset/Context/Timing Onset: Today Context: Sudden Onset Timing: - (Symptoms resolved.) Quality and Location: Positive for Right Facial Droop, Right Arm Weakness and Slurred Speech Current Severity: Gone Maximum Severity: Moderate Associated Symptoms Associated Symptoms: Negative for Headache, Nausea or Vomiting Narrative Narrative: 85-year-old male past medical history of a pacemaker placed earlier this year. Reportedly was found down on the kitchen floor today at home unresponsive. Patient states he was try to go to the restroom felt lightheaded and went down. He denies any complaints. Reportedly per the paramedics stated he had slurred speech and right-sided weakness. Those have all since resolved. He denies any headache, chest pain or abdominal pain. Denies any recent illness. States he feels pretty good right now. Prior similar symptoms: No Recent Illness/Hospitalization: No PFSH PFSH Medical History Cardiac defibrillator in place Hypothyroidism Kidney stones Kidney disease Former smoker Atrial fibrillation Acute hemorrhoid Kidney disease Loss of hearing Wears glasses Cancer Thyroid disease Arthritis Prostate disease History of renal disease Back pain Injury of head and neck Dietary restriction History of diverticulitis Heartburn Chewing tobacco nicotine dependence History of pain when walking Hypertension History of stress test Cardiology follow-up encounter History of echocardiogram Chest pain TIA (transient ischemic attack) GI bleed Paroxysmal atrial fibrillation Essential (primary) hypertension Hyperlipidemia Home Medications ?Medication ?Instructions ?Recorded ?Last Taken ?Type multivitamin 1 tab PO DAILY 07/26/18 Unknown History saw palmetto 1,000 mg capsule 1,000 mg PO DAILY 07/26/18 Unknown History cholecalciferol (vitamin D3) 25 50 mcg PO DAILY 04/25/22 Unknown History mcg/drop (1,000 unit/drop) oral drops levothyroxine 50 mcg tablet 50 mcg PO DAILY 04/25/22 05/10/22 04:30 History magnesium 200 mg tablet 200 mg PO QWEEK 05/17/23 Unknown History aspirin 81 mg capsule 81 mg PO DAILY 12/20/24 Unknown History hydrochlorothiazide 12.5 mg capsule 12.5 mg PO DAILY 12/20/24 Unknown History metoprolol succinate 25 mg 12.5 mg PO DAILY 12/20/24 Unknown History tablet,extended release 24 hr mexiletine 200 mg capsule 200 mg PO Q8H 12/20/24 Unknown History Allergy/AdvReac Type Severity Reaction Status Date / Time animal dander Allergy unknown Verified 12/20/24 11:25 mold Allergy unknown Verified 12/20/24 11:25 pollen extracts Allergy unknown Verified 12/20/24 11:25 Milk Containing Products AdvReac Mild Abd Verified 12/20/24 15:51 (Dairy) cramps/diarrhea amoxicillin AdvReac Nausea/vomi Verified 12/20/24 11:25 ting lisinopril AdvReac Headaches Verified 12/20/24 11:25 Poultry AdvReac Abd Verified 12/20/24 15:51 cramps/diarrhea Family History Father Myocardial infarction from [place] age 56 Mother Heart disease CHF Grandfather Myocardial infarction from [place] age 53 Surgical History History of cholecystectomy History of nephrectomy Hx of colonoscopy Hx of hand surgery Hx laparoscopic cholecystectomy History of nasal septoplasty History of appendectomy Social History Smoking Status: Current some day smoker tobacco type: smokeless tobacco Smokeless tobacco user: chewing tobacco how long ago did patient quit smokin alcohol intake: never substance use type: does not use caffeine: Yes Type: coffee Number of servings: 2, tea Number of servings: 2 and other ROS ROS ED ROS Narrative Denies recent illness. Constitutional Constitutional ED: Denies chills or fever(s) Eyes Eyes: Denies blurry vision ENT ENT ED: Denies ear pain Cardiovascular Cardiovascular: Denies chest pain Respiratory/Chest Respiratory/Chest: Denies cough or dyspnea Gastrointestinal Gastrointestinal: Denies abdominal pain Genitourinary Genitourinary ED: Denies dysuria Musculoskeletal Musculoskeletal: Denies arthralgias Integumentary Denies abscess Neurologic Neurologic: Denies headache(s) Psychiatric Psychiatric: Denies anxiety Endocrine Endocrinology: Denies polydipsia, polyphagia or polyuria Hematologic/Lymphatic Hematologic/Lymphatic: Denies easy bleeding, easy bruising or lymphadenopathy Allergic/Immunologic Allergic/Immunologic ED: Denies mouth swelling, urticaria or other EXAM Physical Exam Narrative Exam Narrative: 85-year-old male brought in by ambulance met at the ambulance bay due to a stroke alert. Vital signs are currently stable he is afebrile. He does not look septic or toxic he is awake and alert. He is in no distress currently. H EENT exam pupils round reactive light. Extra motions are intact. No facial droop. Normal speech. No trauma to his face or scalp. Neck nontender. Lungs clear to auscultation. Heart regular rhythm rate about 80 no murmur. Chest wall and ribs nontender. Abdomen soft nontender. Pelvic girdle intact. Moving all 4 extremities. Nontender no deformity. Equal symmetrical 5 out of 5 adobe maker strength. Dorsi plantarflexion intact. Neurologically currently is awake and alert. Answering questions following commands. Again normal speech. No facial droop. No motor weakness. Currently his NIH is 0. Const Vital Signs: 05/30/25 10:39 05/30/25 10:41 05/30/25 10:51 Temperature 97.9 F Temperature Source Oral Pulse Rate Respiratory Rate Blood Pressure Blood Pressure Mean Pulse Ox 96 97 Oxygen Delivery Method Room Air Room Air 05/30/25 11:11 Temperature Temperature Source Pulse Rate 62 Respiratory Rate 16 Blood Pressure 151/82 H Blood Pressure Mean 105 Pulse Ox 100 Oxygen Delivery Method Room Air Positive well nourished and well developed; Negative for obese, cachectic, contractures or unkempt General Appearance ED: well developed and NAD; Negative for unkempt, cachectic or contractures Nutritional Appearance: Negative for cachectic or obese HEENT Reports moist mucous membranes Eyes PERRL and EOMs intact bilaterally General Eye ED: Negative for pale conjunctiva or scleral icterus Neck no lymphadenopathy, supple and no JVD Chest Wall inspection of chest normal and palpation of chest normal Resp normal respiratory effort and clear to auscultation bilaterally Cardio no murmurs Rate: regular rate Rhythm: regular rhythm GI normal to inspection, nondistended, normoactive bowel sounds, soft to palpation, non-tender, non-distended and no masses Auscultation: normoactive bowel sounds Palpation: Negative for tender, guarding or rebound tenderness present Back/Spine no CVA tenderness General Back: Negative for CVA tenderness Cervical Spine: Negative for cervical spine tenderness Thoracic Spine / Upper Back: Negative for thoracic spinal tenderness Lumbar Spine / Lower Back: Negative for lumbar spinal tenderness Extremity normal to inspection General Extremety ED: Negative for deformity or edema General Extremity: Negative for deformity or edema Neuro oriented x3 and CN's II-XII intact bilaterally Neuro Narrative: NIH score is 0 currently. Sensorium / Orientation: alert, oriented to person, oriented to place and oriented to time; Negative for orientation impaired Motor Exam: strength 5/5 throughout Psych mental status grossly normal Appearance: Negative for unkempt Mood & Affect: Negative for depressed, anxious or tearful Skin no wounds General Skin Exam: Negative for jaundice Lesions: no lesions Rashes: no rashes Trauma: Negative for abrasion or laceration MDM MDM MDM Narrative Medical decision making narrative: 85-year-old male found down at home on the floor unresponsive. Then may have had strokelike symptoms. But currently they are completely resolved with a NIH of 0. This could have been a TIA versus a stroke versus a syncopal episode. He will undergo a cardiac/stroke workup stroke team has been called. Currently he is not a TNK candidate due to the resolution of the symptoms and normal neurologic exam. Multiple repeat exams patient is doing well. NIH remains 0. He is awake alert and talking. His is present I spoke to her what happened at home. It did appear that he got weak she lowered him to the floor and may have had a TIA. They are comfortable with him being admitted. I went over his workup with them. History & Record Review Discussion w/independent historian: Patient Additional record(s) reviewed:: Prior inpatient record, Prior outpatient record, Prior ED visit and Prior labs Lab Data Attestation: I reviewed the patient's lab results. Lab results narrative: CBC unremarkable. White count of 9. H&H 14 and 43. Platelets 240. PT/INR of 13 and 1. PTT 26. Electrolytes show gap 16. BUN and creatinine of 31 and 2.3. Glucose 107. Initial troponin 28. CAT scan chronic changes. Labs: Laboratory Results - last 24 hr 05/30/25 10:42 WBC 9.4 RBC 4.82 Hgb 14.5 Hct 43.5 MCV 90.2 MCH 30.1 MCHC 33.3 RDW Std Deviation 44.4 H RDW Coeff of Jd 13.4 Plt Count 240 MPV 9.9 Immature Gran % (Auto) 0.500 Neut % (Auto) 53.2 Lymph % (Auto) 30.9 [place] % (Auto) 11.0 H Eos % (Auto) 3.5 Baso % (Auto) 0.9 Absolute Neuts (auto) 5.0 Absolute Lymphs (auto) 2.89 Nucleated RBC % 0 PT 13.6 INR 1.0 APTT 26.4 Sodium 137 Potassium 4.5 Chloride 103 Carbon Dioxide 17.8 L Anion Gap 16 H BUN 31 H Creatinine 2.30 H Estim Creat Clear Calc 24.09 L Est GFR (MDRD) Non-Af 27 L BUN/Creatinine Ratio 13.3 Glucose 107 H Calcium 9.3 Troponin T High Sens 28 H D Radiography Diagnostic Testing: Clinical Impression(s) from Imaging Studies Brain CT 05/30/25 10:41 IMPRESSION: 1. No evidence of intracranial hemorrhage or acute ischemia. 2. Changes of chronic microvascular ischemia and volume loss. Findings and impression of this report were called directly to Dr. Hernandez at 10:55 am ([place] standard time). Reading Location: [facility] Head/Neck CTA 05/30/25 10:50 IMPRESSION: 1. No large vessel occlusion. 2. No aneurysm. 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 3. Less than 50% stenosis right internal carotid artery and less than 25% stenosis left internal carotid artery. Reading Location: [facility] Rhythm Strip Rhythm Strip: Paced Rate: 86 Ectopy: None EKG Initial EKG: Attestation: I personally reviewed and interpreted this EKG as follows: Interpretation: Paced Comments: Paced rate at 86. Discharge Plan Triage Chief Complaint: Stroke Alert Other Complaint: Neuro S/Sx ED Provider: Ty Calderón Dx/Rx/DC Orders Clinical Impression: Brain TIA, Chronic kidney disease, History of pacemaker Prescriptions: No Action saw palmetto 1,000 mg capsule 1,000 mg PO DAILY multivitamin tablet 1 tab PO DAILY cholecalciferol (vitamin D3) 25 mcg/drop ( 1,000 unit/drop) drops 50 mcg PO DAILY levothyroxine 50 mcg tablet 50 mcg PO DAILY Patient Comments: take 1 tablet by mouth every morning magnesium 200 mg tablet 200 mg PO QWEEK metoprolol succinate 25 mg tablet extended release 24 hr 12.5 mg PO DAILY hydrochlorothiazide 12.5 mg capsule 12.5 mg PO DAILY mexiletine 200 mg capsule 200 mg PO Q8H aspirin 81 mg capsule 81 mg PO DAILY Primary Care Provider: Brayden Balderrama Referrals: Brayden Balderrama MD [Primary Care Provider] - Print Language: Frisian Disposition Disposition: Acute Care Hospital [facility] NIHSS NIHSS 1a. Level of Consciousness: 0 - Alert; keenly responsive 1b. LOC Questions: 0 - Answers BOTH questions correctly 1c. LOC Commands: 0 - Performs BOTH tasks correctly 2. Best Gaze: 0 - Normal 3. Visual: 0 - No visual loss 4. Facial Palsy: 0 - Normal symmetrical movements 5a. Left Arm: 0 - No drift; arm holds 90 (or 45) degrees for full 10 seconds 5b. Right Arm: 0 - No drift; arm holds 90 (or 45) degrees for full 10 seconds 6a. Left Le - No drift; leg holds 30-degree position for full 5 seconds 6b. Right Le - No drift; leg holds 30-degree position for full 5 seconds 7. Limb Ataxia: 0 - Absent 10. Dysarthria: 0 - Normal 11. Extinction and Inattention: 0 - No abnormality Total: 0 Stroke Questions Stroke Team Activated: Yes Reviewed Inclusion/Exclusion criteria: Yes
[2025-05-30 10:50] LABS: Hematocrit 43.5 % (40-54); Hemoglobin 14.5 g/dL (13.0-16.5); Immature Granulocytes Count 0.050 X10^3/uL (0.0-0.0); Mean Corp Hgb Conc 33.3 g/dL (32-36); Mean Corpuscular Volume 90.2 fL (80-94); Mean Platelet Vol. 9.9 fl (6.2-12.0); NRBC Flagged by Analyzer 0 % (0-5); Platelet Count 240 K/mm3 (150-450); RBC Distribution Width CV 13.4 % (11.6-14.6); RBC Distribution Width SD 44.4 fl (35.1-43.9); Red Blood Count 4.82 M/mm3 (4.6-6.2); White Blood Count 9.4 K/mm3 (4.4-11.0)
--- NOTE | 2025-05-30 10:50 | CT_ITS ---
PROCEDURE: STROKE CTA HEAD AND NECK W/CON 05/30/2025 REASON FOR EXAM: CVA WORK UP TECHNIQUE: STROKE CTA HEAD AND NECK W/CON Multiplanar Sagittal and Coronal images were obtained. 3D post processing was performed CONTRAST: Isovue 370 VOLUME: A of the of the looses blown up near the the hiatus midlung get through at its is going to be long and there is a lot of should on the flu at 1 hours renal heart case thinks mL One or more dose reduction techniques were used (e.g., Automated exposure control, adjustment of the mA and/or kV according to patient size, use of iterative reconstruction technique). RADIATION DOSE SUMMARY: CTDlvol: 45 mGy DLP: 822 mGycm COMPARISON: Head CT of the same day and October 06, 2024 FINDINGS: Aortic Arch: Normal size and branching pattern. Mild atherosclerotic plaque. Brachiocephalic and Subclavians: Mild atherosclerotic plaque without significant stenosis. RIGHT Carotid: Right CCA: Unremarkable. Right ICA: Soft plaque is seen posteriorly over a length of 9 mm best seen on the sagittal reconstructions involving the proximal internal carotid artery approximately 11 mm from the bifurcation. This is less than 50% narrowing. Cavernous and supraclinoid atherosclerotic change. Maximum stenosis (NASCET): Less than 50 % Right ECA: Unremarkable. LEFT Carotid: Left CCA: Unremarkable. Left ICA: Minimal soft plaque posteriorly seen on the sagittal reconstructions approximately 10 mm from the bulb. This is less than 15% narrowing. Cavernous and supraclinoid atherosclerotic change Maximum stenosis (NASCET): <15 % Left ECA: Unremarkable. Vertebrals: Codominant. Arise from the subclavians. Both vertebrals form the basilar. RIGHT Vertebral: Tortuosity near the origin. Early bifurcation of the PICA. [id number] atherosclerotic plaque of the V4 segment. LEFT Vertebral: Tortuous near the origin. [id number] plaque over a short segment of the V4 segment. 50-69% stenotic best appreciated in the coronal plane. Anatomy: [place] anatomy is normal; posterior communicating arteries are not present. Aneurysm or avm: No intracranial aneurysms or large vascular malformations are identified. Anterior cerebral arteries: Unremarkable. Middle cerebral arteries: Unremarkable. Basilar artery: Unremarkable. Posterior cerebral arteries: Unremarkable. Other major branches of the posterior circulation: Unremarkable. Major venous structures: Unremarkable. Other findings: Neck: No lymphadenopathy. Lungs: Lung apices are clear. Bones: Mild disc space narrowing C4/5 and C5/6. Facet hypertrophy throughout the cervical spine. CT/STROKE CTA Head AND Neck W/Con IMPRESSION: 1. No large vessel occlusion. 2. No aneurysm. 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 3. Less than 50% stenosis right internal carotid artery and less than 25% sten osis left internal carotid artery. Reading Location: [id number]
--- OUTSIDE RECORDS SUMMARY | 2025-05-30 10:53 | XMS RPT_ITS | CCD ---
Author Organization [facility] Care Team Providers Care Final Inspector Motorcyles Name Role Phone Bull, Niya Unavailable Unavailable Bull, Niya Unavailable Unavailable DeFinis, Harumi Y Unavailable Unavailable Roof BOOK COVERER, Samuel H Unavailable BRITANY Craft, Janelle Roman Unavailable Dr. Brayden Neri Primary Care Provider Dr. Brayden Balderrama Referring Provider Roof BOOK COVERER, BOOK COVERER-C Samuel Bowers Attending Provider Dr. Nixon Restrepo Attending Provider Dr. Brayden Balderrama Primary Care Provider Dr. Brayden Balderrama Referring Provider CARL Gonzalez Attending Provider Dr. Nixon Restrepo Attending Provider Dr. Brayden Balderrama Primary Care Provider Dr. Brayden Balderrama Referring Provider Dr. Nixon Restrepo Attending Provider Roof BOOK COVERER, BOOK COVERER-C Samuel Bowers Attending Provider TACOS PRINCE, DR BRAYDEN Vazquez Primary Care Physician DON PRINCE, DR ASHLEY Monsivais Attending Carline BALDERRAMA MD, DR BRAYDEN Vazquez Primary Care Dr. Brayden Neri Primary Care Provider Dr. Brayden Balderrama Referring Provider Dr. Nixon Restrepo Attending Provider Roof BOOK COVERER, BOOK COVERER-C Samuel Bowers Attending Provider CARL Gonzalez Attending Provider TACOS PRINCE, DR BRAYDEN Vazquez Primary Care Unavailabl camilo OCHOA MD, DR ASHLEY Monsivais Attending Carline BALDERRAMA MD, DR BRAYDEN Vazquez Primary Care Unavailabl camilo TURNER MD, CHANNING Admitting Unavailabl camilo TURNER MD, CHANNING Attending Unavailabl camilo SAMUEL MD, YUAN Consulting Unavailable ANGELLA PORTER, HAWA Lopez Consulting Unavailable TACOS PRINCE, DR BRAYDEN Vazquez Primary Care Unavailabl e JAZMINE HEAD OF MARKETING-HOSPICE CLINICAL MARKETER, DIGNA T Referring Unavail able ALISON PRINCE, NIKHIL Attending Unavailable Tacos PRINCE, Dr. Owen Primary Care Provider [phone] Tacos PRICNE, Dr. Owen Attending Provider [phone] Danielle PORTER, Dr. Quijano Attending Provider Danielle PORTER, Dr. Quijano Emergency Provider Chetna PORTER, Dr. Joyner Attending Provider Dr. Anya Basilio DO Emergency Provider Sarah PORTER, Dr. Busby Referring Provider Sarah PORTER, Dr. Busby Emergency Provider Tacos PRINCE, Dr. Owen Primary Care Provider [phone] Daily PORTER, Dr. Duran Emergency Provider Tacos PRINCE, Dr. Owen Primary Care Provider [phone] Dr. Kehinde Smith DO Attending Provider Daily PORTER, Dr. Duran Attending Provider Tacos PRINCE, Dr. Owen Attending Provider [phone] Tacos PRINCE, Dr. Owen Referring Provider Roger Ambrosio Attending Unavailabl e Tacos, Brayden Primary Care Unavailable Tacos, Brayden Primary Care Unavailable Kehinde Smith Referring Unavailable Schwalphonso, Kehinde Attending Unavailable Tacos, Brayden Primary Care Unavailable Tacos, Brayden Referring Unavailable Tacos, Brayden Attending Unavailable Tacos, Brayden Primary Care Unavailable Tacos, Brayden Attending Unavailable Brayden Balderrama Primary Care Unavailable Danielle, Samm Attending Unavailable Brayden Balderrama Primary Care Unavailable Anya Basilio Attending Unavailable Allergies Allergy Classification Reported Allergen(s) Allergy Type Date of Onset Reaction(s) Facility (20 sources) amoxicillin; Translations: [amoxicillin] Drug Allergy 4 nausea vomiting, Nausea/vomiting , nausea / vomitting [facility] Work Phone: (8 sources) NKDA drug allergy 3 [facility] Work Phone: (14 sources) Lisinopril; Translations: [lisinopril] Drug Allergy 0 Headaches [facility] (10 sources) Mold Extract Drug Allergy 3 unknown [facility] (6 sources) Pollen Allergy to substance 3 [facility] (11 sources) animal dander; Translations: [animal dander] Allergy to substance 3 unknown [facility] (4 sources) Pollen Allergy to substance [facility] (2 sources) Penicillin; Translations: [penicillin] Drug Allergy Syncope, Vomit, Nausea [facility] (3 sources) chicken allergenic extract Drug Allergy 5 Abd cramps/diarrhea [facility] (3 sources) Milk Containing Products (Dairy) Propensity to adverse reactions 5 Abd cramps/diarrhea [facility] (1 source) chicken allergenic extract Drug Allergy 5 [facility] (1 source) Lisinopril Drug Allergy 5 [facility] (1 source) Mold Extract Drug Allergy 5 [facility] (1 source) Pollen Drug allergy (disorder) 5 [facility] (1 source) Milk Containing Products (Dairy) Drug allergy (disorder) 5 [facility] Medications Current Medications Medication Drug Class(es) Dates Sig (Normalized) Sig (Original) acetaminophen 325 mg / oxyCODONE hydrochloride 5 mg oral tablet (2 sources) Opioid Agonist Start: 05-10-2022 take 1 tablet by mouth every six hours Oxycodone-Acetam inophen Active 1 TABLET PO EVERY 6 HOURS 14 7 May 10, 2022 Ascorbic Acid (1 source) Vitamin C Start: 08-03-2023 Vitamin C qDay, 0 Refill(s) Start Date: 08/03/23 Status: Ordered aspirin 81 mg oral tablet (20 sources) Nonsteroidal Anti-inflammatory Drug Start: 12-20-2024 take 1 capsule by mouth once daily Aspirin 81 mg capsule Active 81 mg PO DAILY December 20, 2024 1:00am Start: 08-03-2023 take 1 mg by mouth e very other day aspirin 81 mg oral delayed release tablet mg = tab(s), Oral, Every other day, 0 Refill(s) Start Date: 08/03/23 Status: Ordered Repeat number: 1 Start: 07-26-2018 End: 05-10-2022 take 1 tablet by mouth once daily Aspirin (Adult Aspirin Regimen) 81 mg tablet,delayed release (DR/EC) Discontinued 81 mg PO DAILY July 26, 2018 12:00am May 10, 2022 10:32am Start: 02-15-2012 take 1 tablet by immanuel th once daily ASPIRIN 81 MG TABS One tablet by mouth daily ASPIRIN [id number] Sandra Lazcano RN atenolol 50 mg oral tablet (20 sources) beta-Adrenergic Katrina Start: 08-03-2023 take 1 tablet by mouth once daily atenolol 50 mg oral tablet take 1 tablet by mouth once daily Start Date: 08/03/23 Status: Ordered Start: 05-17-2023 End: 12-20-2024 take 1 tablet by mouth twice daily Atenolol 25 mg tablet Discontinued 25 mg PO TWICE A DAY May 17, 2023 10:27am December 20, 2024 12:25pm Start: 04-25-2022 End: 05-17-2023 take 1 tablet by mouth once daily Atenolol 25 mg tablet Discontinued 25 mg PO DAILY April 25, 2022 10:24am May 17, 2023 10:28am Start: 07-26-2020 End: 04-25-2022 take 1 tablet by mouth twice daily Atenolol 25 mg tablet Discontinued 25 mg PO TWICE A DAY 180 July 26, 2020 10:33am April 25, 2022 10:26am Start: 11-06-2019 End: 07-26-2020 Atenolol 50 mg tablet Discon tinued 25 mg PO DAILY November 06, 2019 1:00am July 26, 2020 10:33am Start: 11-06-2019 End: 07-26-2020 take 25 mg by mouth once daily Atenolol Discontinued 2 5 MG PO DAILY November 06, 2019 12:00am July 26, 2020 9:33am Start: 05-23-2019 End: 11-06-2019 take 1 tablet by mouth twice daily Atenolol 25 mg tablet Discontinued 25 mg PO TWICE A DAY May 23, 2019 9:58am November 06, 2019 10:49am Start: 08-28-2018 End: 05-23-2019 Atenolol 50 mg tablet Discon tinued 25 mg PO TWICE A DAY May 19, 2019 10:07am May 23, 2019 9:58am Start: 08-28-2018 End: 05-23-2019 take 25 mg by mouth twice daily Atenolol Discontinued 25 MG PO TWICE A DAY May 19, 2019 9:07am May 23, 2019 8:58am Start: 05-13-2018 End: 08-28-2018 take 1 tablet by mouth once daily Atenolol 50 mg tablet Discontinued 50 mg PO daily May 13, 2018 12:00am August 28, 2018 5:57pm Start: 02-15-2012 take 1 tablet by immanuel th once daily TENORMIN 50 MG TABS One tablet by mouth daily ATENOLOL [id number] Sandra Lazcano RN Centrum Silver oral tablet (4 sources) Start: 08-03-2023 take 1 tablet by mouth once daily Centrum Silver oral tablet Dose = 1 tab(s), Oral, qDay, # 90 tab(s), 0 Refill(s) Start Date: 08/03/23 Status: Ordered Quantity: 90.0 Unit: tab(s) Repeat number: 1 Start: 08-03-2023 take 1 tablet by immanuel th once daily Centrum Silver oral tablet Dose = 1 tab(s), Oral, qDay, # 90 tab(s), 0 Refill(s) Start Date: 08/03/23 Status: Ordered chlorpheniramine (19 sources) Histamine-1 Receptor Antagonist Start: 08-03-2023 chlorpheniramine Ora l, 0 Refill(s) Start Date: 08/03/23 Status: Ordered Repeat number: 1 Start: 08-03-2023 chlorphenirami ne Oral, 0 Refill(s) Start Date: 08/03/23 Status: Ordered Start: 07-26-2018 End: 11-06-2019 take 1 tablet by mouth every eight hours as needed Chlorpheniramine Maleate 4 mg tablet Discontinued 4 mg PO Q8H as needed July 26, 2018 12:00am November 06, 2019 10:51am Start: 02-15-2012 take 1 tablet by immanuel th once daily CHLOR-TRIMETON 4 MG TABS One tablet by mouth daily CHLORPHENIRAMINE MALEATE [id number] Sandra Lazcano RN cholecalciferol 0.375 mg/ml oral solution (19 sources) Vitamin D Start: 11-06-2019 End: 04-25-2022 take 50 ug by mouth once daily Cholecalciferol (Vitamin D3) 25 mcg/drop ( 1000 unit/drop) drops Active 50 ug PO DAILY April 25, 2022 10:25am Start: 11-06-2019 End: 04-25-2022 take 25 ug by mouth once daily Cholecalciferol (Vitamin D3) Active 25 MCG PO DAILY April 25, 2022 9:25am Start: 11-06-2019 End: 04-25-2022 Cholecalciferol (Vitamin D3) Discontinued UNIT PO November 06, 2019 12:00am April 25, 2022 9:26am hydroCHLOROthiazide 12.5 mg oral capsule (20 sources) Thiazide Diuretic Start: 08-14-2024 take 1 capsule by mouth once daily Hydrochlorothiazide 12.5 mg capsule Active 12.5 mg PO DAILY December 20, 2024 1:00am Start: 05-13-2018 End: 12-20-2024 take 1 tablet by mouth once daily in the morning Hydrochlorothiazide 25 mg tablet Discontinued 25 mg PO EVERY MORNING 90 March 28, 2021 12:30pm December 20, 2024 12:27pm Start: 02-15-2012 take 1 tablet by immanuel th once daily HYDROCHLOROTHIAZIDE 25 MG TABS One tablet by mouth daily HYDROCHLOROTHIAZIDE [id number] Sandra Lazcano RN levothyroxine sodium 0.05 mg oral tablet (13 sources) l-Thyroxine Start: 08-03-2023 take 1 tablet by mouth once daily in the morning levothyroxine 50 mcg (0.05 mg) oral tablet take 1 tablet by mouth every morning Start Date: 08/03/23 Status: Ordered Repeat number: 1 Start: 04-25-2022 take 1 tablet by immanuel th once daily Levothyroxine 50 mcg tablet Active 50 ug PO DAILY April 25, 2022 12:00am Magnesium (5 sources) Start: 05-17-2023 take 1 tablet by immanuel th every week Magnesium 200 mg tablet Active 200 mg PO EVERY WEEK May 17, 2023 12:00am Start: 05-17-2023 take 200 mg by mouth once karishma y Magnesium Active 200 MG PO DAILY May 16, 2023 11:00pm Start: 05-17-2023 take 200 mg by mouth once karishma y Magnesium Active 200 MG PO DAILY May 17, 2023 12:00am Magnesium glycinate (4 sources) Start: 08-03-2023 magnesium glyc inate 200 mg oral tablet Dose : 100 mg = 0.5 tab(s), Oral, 0 Refill(s) Start Date: 08/03/23 Status: Ordered Repeat number: 1 Start: 08-03-2023 magnesium glyc inate 200 mg oral tablet mg = tab(s), Oral, 0 Refill(s) Start Date: 08/03/23 Status: Ordered Multivitamin preparation (7 sources) Start: 07-26-2018 take 1 tablet by mouth once daily Multivitamin Active 1 TABLET PO DAILY July 25, 2018 11:00pm Start: 07-26-2018 take 1 tablet by immanuel th once daily Multivitamin Active 1 TABLET PO DAILY July 26, 2018 12:00am Multivitamin tablet (3 sources) Start: 07-26-2018 Multivitamin t ablet Active 1 {tbl} PO DAILY July 26, 2018 12:00am potassium chloride 1.33 meq oral tablet (2 sources) Start: 12-15-2024 potassium chlo ride 99 mg oral tablet Dose : 99 mg = 1 tab(s), Oral, 2X/week, 0 Refill(s) Start Date: 12/15/24 Status: Ordered Repeat number: 1 saw palmetto 1,000 mg capsule (7 sources) Start: 07-26-2018 take 1 capsule by mouth once daily saw palmetto 1,000 mg capsule Active 1000 MG PO DAILY July 25, 2018 11:00pm Start: 07-26-2018 take 1 capsule by [facility] once daily saw palmetto 1,000 mg capsule Active 1000 MG PO DAILY July 26, 2018 12:00am Saw [place] 1,000 mg capsule (3 sources) Start: 07-26-2018 take 1 capsule by mouth once daily Saw [place] 1,000 mg capsule Active 1000 mg PO DAILY July 26, 2018 12:00am saw palmetto oral capsule (4 sources) Start: 08-03-2023 saw palmetto o ral capsule 0 Refill(s) Start Date: 08/03/23 Status: Ordered Repeat number: 1 Start: 08-03-2023 saw palmetto o ral capsule 0 Refill(s) Start Date: 08/03/23 Status: Ordered Vitamin D2 50 mcg (2000 intl units) oral capsule (4 sources) Start: 08-03-2023 Vitamin D2 50 mcg (2000 intl units) oral capsule Dose : 50 mcg = 1 cap(s), Oral, qDay, with food, # 60 cap(s), 0 Refill(s) Start Date: 08/03/23 Status: Ordered Quantity: 60.0 Unit: cap(s) Repeat number: 1 Start: 08-03-2023 Vitamin D2 50 mcg (2000 intl units) oral capsule Dose : 50 mcg = 1 cap(s), Oral, qDay, with food, # 60 cap(s), 0 Refill(s) Start Date: 08/03/23 Status: Ordered Completed/Discontinued Medications Medication Drug Class(es) Dates Sig (Normalized) Sig (Original) amLODIPine 5 mg oral tablet (20 sources) Dihydropyridine Calcium Channel Katrina Start: 05-17-2023 End: 12-20-2024 take 1 tablet by mouth once daily Amlodipine 5 mg tablet Discontinued 5 mg PO DAILY May 17, 2023 12:00am December 20, 2024 12:25pm Start: 09-26-2018 End: 11-06-2019 take 1 tablet by mouth once daily Amlodipine (Norvasc) 5 mg tablet Discontinued 5 mg PO DAILY September 26, 2018 12:18pm November 06, 2019 10:49am Start: 09-11-2018 End: 09-26-2018 take 1 tablet by mouth once daily Amlodipine 10 mg tablet Discontinued 10 mg PO DAILY September 11, 2018 1:00am September 26, 2018 12:17pm Start: 09-02-2018 End: 09-11-2018 take 1 tablet by mouth once daily Amlodipine (Norvasc) 5 mg tablet Discontinued 5 mg PO DAILY September 02, 2018 1:00am September 11, 2018 5:50pm Start: 08-28-2018 End: 09-02-2018 take 1 tablet by mouth once daily Amlodipine 2.5 mg tablet Discontinued 2.5 mg PO DAILY August 28, 2018 5:29pm September 02, 2018 4:04pm clindamycin 300 mg oral capsule (4 sources) Lincosamide Antibacterial Start: 07-20-2023 End: 07-25-2023 take 1 capsule by mouth three times daily Clindamycin Hcl 300 mg capsule Discontinued 300 mg PO THREE TIMES A DAY 05 03July 20, 2023 12:00am July 24, 2023 12:00am July 25, 2023 12:04am docusate sodium 100 mg oral capsule (14 sources) Start: 05-10-2022 End: 05-17-2023 take 1 capsule by mouth twice daily as needed for constipation Docusate Sodium (Colace) 100 mg capsule Discontinued 100 mg PO TWICE A DAY as needed for Constipation February 17, 2023 10:15pm May 17, 2023 10:27am doxycycline monohydrate 100 mg oral capsule (3 sources) Tetracycline-class Drug Start: 10-06-2024 End: 12-20-2024 take 1 capsule by mouth twice daily Doxycycline Monohydrate 100 mg capsule Discontinued 100 mg PO TWICE A DAY October 06, 2024 1:00am December 20, 2024 12:26pm Ginseng (15 sources) Start: 07-26-2018 End: 07-30-2018 take 1 capsule by mouth once daily Ginseng 100 mg capsule Discontinued 100 mg PO DAILY July 26, 2018 12:00am July 30, 2018 10:00am Start: 07-26-2018 End: 07-30-2018 take 100 mg by mouth once daily Ginseng Discontinued 1 00 MG PO DAILY July 25, 2018 11:00pm July 30, 2018 9:00am Start: 07-26-2018 End: 07-30-2018 take 100 mg by mouth once daily Ginseng Discontinued 1 00 MG PO DAILY July 26, 2018 12:00am July 30, 2018 10:00am Start: 02-15-2012 [facility] G[facility] 100 MG CAPS One tablet by mouth daily GINSENG [id number] Sandra Lazcano RN lisinopril 10 mg oral tablet (20 sources) Angiotensin Converting Enzyme Inhibitor Start: 08-28-2018 End: 09-26-2018 take 1 tablet by mouth once daily in the evening Lisinopril 10 mg tablet Discontinued 10 mg PO EVERY EVENING August 28, 2018 1:00am September 26, 2018 12:17pm Start: 07-30-2018 End: 08-28-2018 take 1 tablet by mouth twice daily Lisinopril 10 mg tablet Discontinued 10 mg PO TWICE A DAY 180 July 30, 2018 12:00am August 28, 2018 5:53pm Metoprolol (7 sources) beta-Adrenergic Katrina Start: 12-24-2024 End: 12-24-2024 take 1 tablet by mouth in the morning Toprol-XL Start: 12/24/24 8:00:00 AM EST, Dose = 12.5 mg, = 0.5 tab(s), Oral, give with food/meal, 12/23/24 10:08:00 EST Start Date: 12/24/24 Stop Date: 12/24/24 Status: Completed Repeat number: 1 Start: 12-20-2024 take 2 tablets by mo [facility] once daily Metoprolol Succinate 25 mg tablet extended release 24 hr Active 12.5 mg PO DAILY December 20, 2024 1:00am Start: 01-08-2024 End: 01-02-2025 Toprol-XL 25 mg oral tablet, extended release Dose : 12.5 mg = 0.5 tab(s), Oral, qDay, # 45 tab(s), 3 Refill(s), Pharmacy: [facility] gumi #[id number], 177.8, cm, 12/06/23 14:09:00 EST, Height, kg, 12/06/23 14:09:00 EST, Dosing Weight Start Date: 01/08/24 Stop Date: 01/02/25 Status: Ordered Quantity: 45.0 Unit: tab(s) Repeat number: 4 Mexiletine (8 sources) Antiarrhythmic Start: 12-24-2024 End: 12-24-2024 take 1 capsule by mouth in the morning mexiletine Start: 12/24/24 8:00:00 AM EST, Dose = 200 mg, = 1 cap(s), Oral, 12/20/24 21:02:00 EST Start Date: 12/24/24 Stop Date: 12/24/24 Status: Completed Repeat number: 1 Start: 12-24-2024 End: 12-23-2024 take 1 capsule by mouth in the morning mexiletine Start: 12/24/24 12:00:00 AM EST, Dose = 200 mg, = 1 cap(s), Oral, 12/20/24 21:02:00 EST Start Date: 12/24/24 Stop Date: 12/23/24 Status: Completed Repeat number: 1 Start: 12-20-2024 take 1 capsule by mo uth every eight hours Mexiletine 200 mg capsule Active 200 mg PO Q8H December 20, 2024 1:00am Start: 01-11-2024 End: 05-10-2024 mexiletine 200 mg oral capsu le Dose : 200 mg = 1 cap(s), Oral, q8h, # 90 cap(s), 3 Refill(s), Pharmacy: [facility] gumi #[id number], 177.8, cm, 12/06/23 14:09:00 EST, Height, kg, 12/06/23 14:09:00 EST, Dosing Weight Start Date: 01/11/24 Stop Date: 05/10/24 Status: Ordered Quantity: 90.0 Unit: cap(s) Repeat number: 4 moexipril hydrochloride 15 mg oral tablet (20 sources) Angiotensin Converting Enzyme Inhibitor Start: 11-06-2019 End: 04-25-2022 take 7.5 mg by mouth once daily in the morning Moexipril Discontinued 7.5 MG PO EVERY MORNING November 06, 2019 9:50am April 25, 2022 9:26am Start: 08-28-2018 End: 04-25-2022 take 1 tablet by mouth once daily in the morning Moexipril 15 mg tablet Discontinued 15 mg PO EVERY MORNING May 27, 2019 1:07pm November 06, 2019 10:51am Start: 05-13-2018 End: 07-30-2018 take 1 tablet by mouth once daily 1 hour(s) before mealtime Moexipril 15 mg tablet Discontinued 15 mg PO daily May 13, 2018 12:00am July 30, 2018 10:13am administer 1 hour before a meal Start: 02-15-2012 take 1 tablet by immanuel th once daily UNIVASC 15 MG TABS One tablet by mouth daily MOEXIPRIL HCL [id number] Sandra Lazcano RN MULTIPLE VITAMIN (5 sources) Start: 02-15-2012 take 1 tablet by mouth once daily MULTIVITAMINS TABS One tablet by mouth daily MULTIPLE VITAMIN [id number] Sandra Lazcano RN olmesartan medoxomil 20 mg oral tablet (10 sources) Angiotensin 2 Receptor Katrina Start: 02-15-2012 End: 02-16-2012 take 1 tablet by mouth once daily BENICAR 20 MG TABS 1 tablet by mouth every day OLMESARTAN MEDOXOMIL [id number] Nixon Restrepo MD ondansetron 4 mg disintegrating oral tablet (6 sources) Serotonin-3 Receptor Antagonist Start: 02-18-2023 End: 05-17-2023 take 1 tablet by mouth every eight hours as needed for nausea Ondansetron 4 mg tablet,disintegrati ng Discontinued 4 mg PO EVERY 8 HOURS NEEDED as needed for Nausea February 18, 2023 12:00am May 17, 2023 10:28am potassium gluconate 2.5 meq oral tablet (10 sources) Start: 07-26-2018 End: 11-06-2019 take 1 tablet by mouth once daily Potassium Gluconate 595 mg (99 mg) tablet Discontinued 595 mg PO DAILY July 26, 2018 12:00am November 06, 2019 10:50am potassium,chelated 99 mg oral tablet (5 sources) Start: 07-18-2016 take 1 tablet by mouth once daily POTASSIUM 99 MG TABS One tablet by mouth daily POTASSIUM [id number] Nixon Restrepo MD SAW PALMETTO (SERENOA REPENS) (5 sources) Start: 02-15-2012 take 1 tablet by mouth once daily SAW PALMETTO 1000 MG CAPS One tablet by mouth daily SAW PALMETTO (SERENOA REPENS) [id number] Sandra Lazcano RN Problems Active Problems Problem Classification Problem Date Documented Da te Episodic/Chronic Cardiac dysrhythmias (20 sources) Paroxysmal atrial fibrillation; Translations: [Atrial fibrillation] Onset: 02-15-2012 08-06-2017 Chronic Cardiac dysrhythmias (9 sources) Bradycardia; Translations: [Bradycardia, unspecified] 06-07-2023 Episodic Chronic kidney disease (6 sources) Chronic kidney disease; Translations: [Chronic kidney disease, unspecified] 12-06-2023 Chronic Conduction disorders (7 sources) Right bundle branch block; Translations: [Unspecified right bundle-branch block] 02-25-2024 Chronic Disorders of lipid metabolism (17 sources) Hyperlipidemia; Translations: [Hyperlipidemia, unspecified] Onset: 02-15-2012 02-15-2012 Chronic Disorders of teeth and jaw (5 sources) Infection of tooth; Translations: [Periapical abscess without sinus] 07-20-2023 Episodic Essential hypertension (20 sources) Hypertensive disorder; Translations: [Essential hypertension] Onset: 02-15-2012 02-15-2012 Chronic Fluid and electrolyte disorders (18 sources) Dehydration; Translations: [Dehydration] 02-17-2023 Episodic Fracture of lower limb (14 sources) Closed fracture of phalanx of foot; Translations: [Displaced unspecified fracture of left lesser toe(s), initial encounter for closed fracture] 10-24-2022 Episodic Heart valve disorders (10 sources) Heart murmur; Translations: [Cardiac murmur, unspecified] 04-03-2022 Episodic Hemorrhoids (1 source) Pile reducible with difficulty; Translations: [Third degree hemorrhoids] Episodic Hypertension with complications and secondary hypertension (1 source) Chronic kidney disease due to hypertension; Translations: [Hypertensive chronic kidney disease with stage 1 through stage 4 chronic kidney disease, or unspecified chronic kidney disease] Chronic Malaise and fatigue (15 sources) Fatigue; Translations: [Other fatigue] 10-24-2022 Episodic Malignant neoplasm without specification of site (9 sources) Malignant neoplastic disease; Translations: [Malignant (primary) neoplasm, unspecified] Chronic Comment on above: KIDNEY Other lower respiratory disease (6 sources) Dyspnea; Translations: [Dyspnea, unspecified] 02-17-2023 Episodic Other non-traumatic joint disorders (6 sources) Pain in unspecified knee; Translations: [Knee pain] 10-24-2022 Episodic Other upper respiratory disease (6 sources) Allergy to pollen; Translations: [Allergic rhinitis due to pollen] 10-24-2022 Chronic Sprains and strains (6 sources) Strain of foot; Translations: [Strain of unspecified muscle and tendon at ankle and foot level, left foot, initial encounter] 10-24-2022 Episodic Syncope (10 sources) Syncope and collapse; Translations: [Syncope and collapse] Onset: 03-06-2025 Episodic Thyroid disorders (1 source) Hypothyroidism; Translations: [Hypothyroidism, unspecified] Chronic Past or Other Problems Problem Classification Problem Date Documented Date Episodic/Chronic Conditions associated with dizziness or vertigo (5 sources) Dizziness and giddiness; Translations: [Dizziness and giddiness] Onset: 07-18-2016 07-18-2016 Episodic Other circulatory disease (5 sources) H/O: atrial fibrillation; Translations: [Personal history of other diseases of the circulatory system] Onset: 02-15-2012 07-18-2016 Episodic Pneumonia (except that caused by tuberculosis or sexually transmitted disease) (1 source) Pneumonia, unspecified organism; Translations: [Pneumonia, unspecified organism] Onset: 11-06-2024 Episodic Unclassified (8 sources) Preoperative cardiovascular examination ; Translations: [Encounter for preprocedural cardiovascular examination] Onset: 02-15-2012 Resolved: 07-18-2016 07-18-2016 Results Test Name Value Interpretation Reference Range Facility Anion gap in Serum or Plasma Ordered By: Brayden Balderrama on 03-09-2025 Anion gap [Moles/Vol] 11 mmol/L 5-15 [facility] BUN/creatinine ratioOrdered By: Brayden Balderrama on 03-09-2025 Urea nitrogen/Creatinine [Mass ratio] 16.0 mg/mg - [facility] Bilirubin, totalOrdered By: Brayden Balderrama on 03-09-2025 Bilirubin [Mass/Vol] 0.58 mg/dL 0.00-1.30 [facility] Carbon dioxide, total [Moles /volume] in Central venous bloodOrdered By: Brayden Balderrama on 03-09-2025 CO2 [Moles/Vol] 24.2 mmol/L 21.0-32.0 [facility] Chloride assayOrdered By: Carl Balderrama on 03-09-2025 Chloride [Moles/Vol] 104 mmol/L 98-108 [facility] Comprehensive Metabolic Prof ilon 03-09-2025 Albumin [Mass/Vol] 3.9 g/dL Normal 3.4-4.8 [facility] Comment on above: Performed By: #### L 501.46827, L506.0400, L500.4050, L501.9520 #### [facility] Laboratory [address] [place], [address] Albumin/Globulin [Mass ratio] 1.2 {ratio} Normal 0.9-2.4 [facility] Comment on above: Performed By: #### L 501.01626, L506.0400, L500.4050, L501.9520 #### [facility] Laboratory [address] [place], [address] ALK PHOS 118 U/L Normal 40-129 [facility] Comment on above: Performed By: #### L 501.31548, L506.0400, L500.4050, L501.9520 #### [facility] Laboratory [address] [place], [address] ALT [Catalytic activity/Vol] 37 U/L Normal <=46 [facility] Comment on above: Performed By: #### L 501.39166, L506.0400, L500.4050, L501.9520 #### [facility] Laboratory [address] [place], [address] AST [Catalytic activity/Vol] 34 U/L Normal <=37 [facility] Comment on above: Performed By: #### L 501.11919, L506.0400, L500.4050, L501.9520 #### [facility] Laboratory [address] [place], [address] Bilirubin [Mass/Vol] 0.58 mg/dL Normal 0.00-1.30 [facility] Comment on above: Performed By: #### L 501.71965, L506.0400, L500.4050, L501.9520 #### [facility] Laboratory [address] [place], [address] BUN/CRE 16.0 RATIO Normal 10-20 [facility] Comment on above: Performed By: #### L 501.51039, L506.0400, L500.4050, L501.9520 #### [facility] Laboratory [address] [place], [address] Calcium [Mass/Vol] 9.3 mg/dL Normal 7.6-11.0 [facility] Comment on above: Performed By: #### L 501.46454, L506.0400, L500.4050, L501.9520 #### [facility] Laboratory [address] [place], [address] Chloride [Moles/Vol] 104 mmol/L Normal 98-108 [facility] Comment on above: Performed By: #### L 501.01878, L506.0400, L500.4050, L501.9520 #### [facility] Laboratory [address] [place], [address] CO2 [Moles/Vol] 24.2 mmol/L Normal 21.0-32.0 [facility] Comment on above: Performed By: #### L 501.92251, L506.0400, L500.4050, L501.9520 #### [facility] Laboratory [address] [place], [address] Creatinine [Mass/Vol] 1.71 mg/dL High 0.70-1.20 [facility] Comment on above: Performed By: #### L 501.04301, L506.0400, L500.4050, L501.9520 #### [facility] Laboratory [address] [place], [address] GAP 11 Normal 5-15 [facility] Comment on above: Performed By: #### L 501.49425, L506.0400, L500.4050, L501.9520 #### [facility] Laboratory [address] [place], [address] GFR/1.73 sq M.predicted among non-blacks MDRD (S/P/Bld) [Vol rate/Area] 39 mL/min/{1.73_m2} Low >60 [facility] Comment on above: Result Comment: mL/m in/1.73m2 CKD-EPI Creatinine Equation (2020) Performed By: #### L 501.60474, L506.0400, L500.4050, L501.9520 #### [facility] Laboratory [address] [place], [address] Globulin (S) [Mass/Vol] 3.2 g/dL Normal 2.2-4.2 [facility] Comment on above: Performed By: #### L 501.84423, L506.0400, L500.4050, L501.9520 #### [facility] Laboratory [address] [place], [address] Glucose [Mass/Vol] 84 mg/dL Normal 70-99 [facility] Comment on above: Performed By: #### L 501.95665, L506.0400, L500.4050, L501.9520 #### [facility] Laboratory [address] [place], [address] Potassium [Moles/Vol] 4.6 mmol/L Normal 3.3-5.1 [facility] Comment on above: Performed By: #### L 501.29005, L506.0400, L500.4050, L501.9520 #### [facility] Laboratory [address] [place], [address] Sodium [Moles/Vol] 139 mmol/L Normal 133-145 [facility] Comment on above: Performed By: #### L 501.84238, L506.0400, L500.4050, L501.9520 #### [facility] Laboratory [address] [place], [address] T PROT 7.1 g/dL Normal 5.9-8.4 [facility] Comment on above: Performed By: #### L 501.70036, L506.0400, L500.4050, L501.9520 #### [facility] Laboratory [address] [place], [address] Urea nitrogen [Mass/Vol] 27 mg/dL High 02-07 [facility] Comment on above: Performed By: #### L 501.81717, L506.0400, L500.4050, L501.9520 #### [facility] Laboratory [address] [place], [address] Free T3on 03-09-2025 Free T3 [Mass/Vol] 2.5 pg/mL Normal 2.18-3.98 [facility] Comment on above: Performed By: #### L 501.46721, L506.0400, L500.4050, L501.9520 #### [facility] Laboratory [address] [place], [address] Free [id number] By: Brayden riddle on 03-09-2025 Free T3 [Mass/Vol] 2.5 pg/mL 2.18-3.98 [facility] Glomerular filtration rate ( GFR) estimation/1.73 sq m using serum, plasma, or whole bOrdered By: Brayden Balderrama on 03-09-2025 GFR/1.73 sq M.predicted among non-blacks MDRD (S/P/Bld) [Vol rate/Area] 39 mL/min/{1.73_m2} Low >60 [facility] Comment on above: mL/min/1.73m2 CKD-EP I Creatinine Equation (2020) Laboratory - Chemistry and C hemistry - challengeOrdered By: Brayden Balderrama on 03-09-2025 AST [Catalytic activity/Vol] 34 U/L <38 [facility] Potassium measurement (mass/ volume)Ordered By: Brayden Balderrama on 03-09-2025 Potassium (Unsp spec) [Mass/Vol] 4.6 mmol/L 3.3-5.1 [facility] Serum creatinine measurement (mass/volume)Ordered By: Brayden Balderrama on 03-09-2025 Creatinine [Mass/Vol] 1.71 mg/dL High 0.70-1.20 [facility] Serum globulin measurementOr dered By: Brayden Balderrama on 03-09-2025 Globulin (S) [Mass/Vol] 3.2 g/dL 2.2-4.2 [facility] Serum glucose measurement (m ass/volume)Ordered By: Brayden Balderrama on 03-09-2025 Glucose [Mass/Vol] 84 mg/dL 70-99 [facility] Serum or plasma alanine arroyo otransferase (ALT) measurementOrdered By: Brayden Balderrama on 03-09-2025 ALT [Catalytic activity/Vol] 37 U/L <47 [facility] Serum or plasma albumin tasha urement (mass/volume)Ordered By: Brayden Balderrama on 03-09-2025 Albumin [Mass/Vol] 3.9 g/dL 3.4-4.8 [facility] Serum or plasma albumin/glob ulin mass ratioOrdered By: Brayden Balderrama on 03-09-2025 Albumin/Globulin [Mass ratio] 1.2 {ratio} 0.9-2.4 [facility] Serum or plasma alkaline omid sphatase measurementOrdered By: Brayden Balderrama on 03-09-2025 ALP [Catalytic activity/Vol] 118 U/L 40-129 [facility] Serum or plasma calcium tasha urement (mass/volume)Ordered By: Brayden Balderrama on 03-09-2025 Calcium [Mass/Vol] 9.3 mg/dL 7.6-11.0 [facility] Serum or plasma urea nitroge n measurement (mass/volume)Ordered By: Brayden Balderrama on 03-09-2025 Urea nitrogen [Mass/Vol] 27 mg/dL High 4-19 [facility] Sodium levelOrdered By: Brayden Balderrama on 03-09-2025 Sodium [Moles/Vol] 139 mmol/L 133-145 [facility] T4 Free Directon 03-09-2025 T4 FREE DIRECT 1.30 ng/dL Normal 0.76-1.46 [facility] Comment on above: Performed By: #### L 501.9520, L506.0400, L501.5200, L501.34849, L500.2500 #### [facility] Laboratory [address] [place], [address] T4 freeOrdered By: Brayden riddle on 03-09-2025 Free T4 [Mass/Vol] 1.30 ng/dL 0.76-1.46 [facility] TSH DL <= 0.005 mIU/L QnOrde red By: Brayden Balderrama on 03-09-2025 TSH Qn 3.250 uIU/mL 0.300-4.200 [facility] Thyroid Stim Hormone (TSH)on 03-09-2025 TSH 3.250 uIU/mL Normal 0.300-4.200 [facility] Comment on above: Performed By: #### L 501.55913, L506.0400, L500.4050, L501.9520 #### [facility] Laboratory [address] [place], [address] Total proteinOrdered By: Elayne Balderrama on 03-09-2025 Protein [Mass/Vol] 7.1 g/dL 5.9-8.4 [facility] 12 Lead EKGon 01-12-2025 12 Lead EKG [facility] Cardiovascular Services [address] [place] [address] 12 Lead EKG 01/12/25 1447 MR#: [id number] Acct: [id number] Name: MAGUI TORRES Rep #: [id number] : 1940 84 From: Nixon Restrepo MD Attending Dr: Status: DEP ER Ordering Dr: Roger Ambrosio DO Date: 5 Location: ED Sex: M C Admitted: Test Reason : Blood Pressure : */* mmHG Vent. Rate : 63 BPM Atrial Rate : 63 BPM P-R Int : 174 ms QRS Dur : 124 ms QT Int : 436 ms P-R-T Axes : 69 -8 25 degrees QTcB Int : 446 ms Atrial-sensed ventricular-paced rhythm Abnormal ECG Confirmed by DWAYNE PRINCE, NIXON ([id number]), greeting card editor MYRTLE MCKEE ([id number]) on 01/14/2025 8:16:44 AM Referred By: KEREN Confirmed By: NIXON RESTREPO MD 01/14/2516 Date Nixon Restrepo MD CC: Dr. Roger Ambrosio, DO; Dr. Brayden Balderrama MD Signed Normal [facility] Absolute lymphocyte countOrd ered By: Roger Ambrosio on 01-12-2025 Lymphocytes Auto (Unsp spec) [#/Vol] 1.33 10*3/uL 0.83-4.51 [facility] Absolute neutrophil countOrd ered By: Roger Ambrosio on 01-12-2025 Neutrophils (Bld) [#/Vol] 8.0 10*3/uL High 2.0-7.7 [facility] Activated partial thrombopla stin time (aPTT) in platelet poor plasma by coagulation aOrdered By: Roger Ambrosio on 01-12-2025 aPTT Coag (PPP) [Time] 28.5 s 24.1-36.2 [facility] Anion gap in Serum or Plasma Ordered By: Roger Ambrosio on 01-12-2025 Anion gap [Moles/Vol] 12 mmol/L 5-15 [facility] Automated lymphocyte count a s percentage of total leukocytesOrdered By: Roger Ambrosio on 01-12-2025 Lymphocytes/100 WBC Auto (Unsp spec) 12.2 % Low 19-41 [facility] BUN/creatinine ratioOrdered By: Roger Ambrosio on 01-12-2025 Urea nitrogen/Creatinine [Mass ratio] 16.0 mg/mg 10- [facility] Basic Metabolic Profile (BMP )on 01-12-2025 BUN/CRE 16.0 RATIO Normal - [facility] Comment on above: Performed By: #### L 501.9520, L506.0400, L501.5200, L501.78017, L500.2500 #### [facility] Laboratory [address] [place], [address] Calcium [Mass/Vol] 9.2 mg/dL Normal 7.6-11.0 [facility] Comment on above: Performed By: #### L 501.9520, L506.0400, L501.5200, L501.15928, L500.2500 #### [facility] Laboratory [address] [place], [address] Chloride [Moles/Vol] 102 mmol/L Normal 98-108 [facility] Comment on above: Performed By: #### L 501.9520, L506.0400, L501.5200, L501.98692, L500.2500 #### [facility] Laboratory [address] [place], [address] CO2 [Moles/Vol] 22.2 mmol/L Normal 21.0-32.0 [facility] Comment on above: Performed By: #### L 501.9520, L506.0400, L501.5200, L501.81401, L500.2500 #### [facility] Laboratory [address] [place], [address] Creatinine [Mass/Vol] 1.74 mg/dL High 0.70-1.20 [facility] Comment on above: Performed By: #### L 501.9520, L506.0400, L501.5200, L501.48859, L500.2500 #### [facility] Laboratory [address] [place], [address] ECRCL 33.75 ml/min Low 50-250 [facility] Comment on above: Performed By: #### L 501.9520, L506.0400, L501.5200, L501.20275, L500.2500 #### [facility] Laboratory [address] [place], [address] GAP 12 Normal 5-15 [facility] Comment on above: Performed By: #### L 501.9520, L506.0400, L501.5200, L501.83718, L500.2500 #### [facility] Laboratory [address] [place], [address] GFR/1.73 sq M.predicted among non-blacks MDRD (S/P/Bld) [Vol rate/Area] 39 mL/min/{1.73_m2} Low >60 [facility] Comment on above: Result Comment: mL/m in/1.73m2 CKD-EPI Creatinine Equation (2020) Performed By: #### L 501.9520, L506.0400, L501.5200, L501.75431, L500.2500 #### [facility] Laboratory [address] [place], [address] Glucose [Mass/Vol] 99 mg/dL Normal 70-99 [facility] Comment on above: Performed By: #### L 501.9520, L506.0400, L501.5200, L501.55646, L500.2500 #### [facility] Laboratory [address] [place], [address] Potassium [Moles/Vol] 4.3 mmol/L Normal 3.3-5.1 [facility] Comment on above: Performed By: #### L 501.9520, L506.0400, L501.5200, L501.09596, L500.2500 #### [facility] Laboratory [address] [place], [address] Sodium [Moles/Vol] 137 mmol/L Normal 133-145 [facility] Comment on above: Performed By: #### L 501.9520, L506.0400, L501.5200, L501.29145, L500.2500 #### [facility] Laboratory [address] [place], [address] Urea nitrogen [Mass/Vol] 28 mg/dL High 4-19 [facility] Comment on above: Performed By: #### L 501.9520, L506.0400, L501.5200, L501.70273, L500.2500 #### [facility] Laboratory [address] [place], [address] Basophil percentageOrdered B y: Roger KlaltonGonzalez on 01-12-2025 Basophils/100 WBC (Bld) 0.8 % 0-1 [facility] Bilirubin Test strip Ql (U)O rdered By: Roger ShantaltonGonzalez on 01-12-2025 Bilirubin Ql (U) Negative Negative [facility] CBC W/Diff, Automatedon 12-21 Absolute Lymph 1.33 X10 3/uL Normal 0.83-4.51 [facility] Comment on above: Performed By: #### L 501.9520, L506.0400, L501.5200, L501.80109, L500.2500 #### [facility] Laboratory [address] [place], [address] Absolute Neut 8.0 X10 3/uL High 2.0-7.7 [facility] Comment on above: Performed By: #### L 501.9520, L506.0400, L501.5200, L501.50862, L500.2500 #### [facility] Laboratory [address] [place], [address] Basophils/100 WBC (Bld) 0.8 % Normal 0-1 [facility] Comment on above: Performed By: #### L 501.9520, L506.0400, L501.5200, L501.40409, L500.2500 #### [facility] Laboratory [address] [place], [address] Eosinophils/100 WBC (Bld) 2.8 % Normal 0-5 [facility] Comment on above: Performed By: #### L 501.9520, L506.0400, L501.5200, L501.08267, L500.2500 #### [facility] Laboratory [address] [place], [address] Erythrocyte distribution width (RBC) [Ratio] 13.5 % Normal 11.6-14.6 [facility] Comment on above: Performed By: #### L 501.9520, L506.0400, L501.5200, L501.75058, L500.2500 #### [facility] Laboratory [address] [place], [address] Hematocrit (Bld) [Volume fraction] 40.9 % Normal 40-54 [facility] Comment on above: Performed By: #### L 501.9520, L506.0400, L501.5200, L501.33669, L500.2500 #### [facility] Laboratory [address] [place], [address] Hemoglobin (Bld) [Mass/Vol] 14.1 g/dL Normal 13.0-16.5 [facility] Comment on above: Performed By: #### L 501.9520, L506.0400, L501.5200, L501.85831, L500.2500 #### [facility] Laboratory [address] [place], [address] IG% 0.800 Normal 0.0-0.9 [facility] Comment on above: Result Comment: IG% - Immature Granulocytes (promyelocytes, myelocytes and metamyelocytes) > 1% indicates that a LEFT SHIFT is Present. Performed By: #### L 501.9520, L506.0400, L501.5200, L501.85665, L500.2500 #### [facility] Laboratory [address] [place], [address] Lymphocytes/100 WBC (Bld) 12.2 % Low 19-41 [facility] Comment on above: Performed By: #### L 501.9520, L506.0400, L501.5200, L501.06637, L500.2500 #### [facility] Laboratory [address] [place], [address] MCH (RBC) [Entitic mass] 30.7 pg Normal 27.0-32.0 [facility] Comment on above: Performed By: #### L 501.9520, L506.0400, L501.5200, L501.73869, L500.2500 #### [facility] Laboratory [address] [place], [address] MCHC (RBC) [Mass/Vol] 34.5 g/dL Normal 32-36 [facility] Comment on above: Performed By: #### L 501.9520, L506.0400, L501.5200, L501.31583, L500.2500 #### [facility] Laboratory [address] [place], [address] MCV (RBC) [Entitic vol] 88.9 fL Normal 80-94 [facility] Comment on above: Performed By: #### L 501.9520, L506.0400, L501.5200, L501.28067, L500.2500 #### [facility] Laboratory [address] [place], [address] Monocytes/100 WBC (Bld) 10.3 % High 0-10 [facility] Comment on above: Performed By: #### L 501.9520, L506.0400, L501.5200, L501.85230, L500.2500 #### [facility] Laboratory [address] [place], [address] Neutrophils/100 WBC (Bld) 73.1 % High 47-70 [facility] Comment on above: Performed By: #### L 501.9520, L506.0400, L501.5200, L501.99940, L500.2500 #### [facility] Laboratory [address] [place], [address] Nucleated RBC (Bld) [#/Vol] 0 10*3/uL Normal 0-5 [facility] Comment on above: Performed By: #### L 501.9520, L506.0400, L501.5200, L501.82417, L500.2500 #### [facility] Laboratory [address] [place], [address] Platelet mean volume (Bld) [Entitic vol] 9.8 fL Normal 6.2-12.0 [facility] Comment on above: Performed By: #### L 501.9520, L506.0400, L501.5200, L501.84035, L500.2500 #### [facility] Laboratory [address] [place], [address] Platelets (Bld) [#/Vol] 239 10*3/uL Normal 150-450 [facility] Comment on above: Performed By: #### L 501.9520, L506.0400, L501.5200, L501.88860, L500.2500 #### [facility] Laboratory [address] [place], [address] RBC (Bld) [#/Vol] 4.60 10*6/uL Normal 4.6-6.[address] [facility] Comment on above: Performed By: #### L 501.9520, L506.0400, L501.5200, L501.60877, L500.2500 #### [facility] Laboratory [address] [place], [address] RDW SD 44.0 fl High 35.1-43.9 [facility] Comment on above: Performed By: #### L 501.9520, L506.0400, L501.5200, L501.01174, L500.2500 #### [facility] Laboratory [address] [place], [address] WBC (Bld) [#/Vol] 10.9 10*3/uL Normal 4.4-11.[address] [facility] Comment on above: Performed By: #### L 501.9520, L506.0400, L501.5200, L501.05577, L500.2500 #### [facility] Laboratory [address] [place], [address] CTA Chest W/WO Contraston CTA Chest W/WO Contrast [facility] Imaging Services [address] [facility] [place] [address] CTA Chest W/WO Contrast MR#: [id number] Acct: [id number] Name: MAGUI TORRES Rep #: [id number] : 1940 M 84 From: Dustin Rees MD PCP: Dr. Brayden Balderrama MD Status: [facility] Study: CTA Chest W/WO Contrast Date of Exam: 01/12/25 Exam# [id number] Ordering Dr: Roger Ambrosio DO EXAM: CT Angiography Chest Without and With Intravenous Contrast CLINICAL INDICATION: PE TECHNIQUE: Axial computed tomographic angiography images of the chest without and with intravenous contrast. This CT exam was performed using one or more of the following dose reduction techniques: automated exposure control, adjustment of the mA and/or kV according to patient size, and/or use of iterative reconstruction technique. MIP reconstructed images were created and reviewed. COMPARISON: No relevant prior studies available. FINDINGS: PULMONARY ARTERIES: Unremarkable. No pulmonary embolism. AORTA: Scattered calcified atherosclerotic disease of aorta. No thoracic aortic aneurysm. LUNGS AND PLEURAL SPACES: Lung emphysema/COPD. No mass. No consolidation. No significant effusion. No pneumothorax. HEART: Unremarkable. No cardiomegaly. No significant pericardial effusion. No evidence of RV dysfunction. BONES/JOINTS: No acute fracture. No dislocation. SOFT TISSUES: Unremarkable. LYMPH NODES: Unremarkable. No enlarged lymph nodes. CT/CTA Chest W/WO Contrast IMPRESSION: No pulmonary embolism. Reading [facility] CC: Dr. Roger Ambrosio DO; Dr. Brayden Balderrama MD Glassblower: Signed Normal [facility] Carbon dioxide, total [Moles /volume] in Central venous bloodOrdered By: Roger Ambrosio on 01-12-2025 CO2 [Moles/Vol] 22.2 mmol/L 21.0-32.0 [facility] Chest 1 View (Portable)on Chest 1 View (Portable) [facility] Imaging Services [address] [place] [address] Chest 1 View (Portable) MR#: [id number] Acct: [id number] Name: MAGUI TORRES Rep #: [id number] : 1940 M 84 From: Dustin Rees MD PCP: Dr. Brayden Balderrama MD Status: REG ER Study: Chest 1 View (Portable) Date of Exam: 01/12/25 Exam# [id number] Ordering Dr: Roger Ambrosio DO EXAM: XR Chest, 1 View CLINICAL INDICATION: SYNCOPE TECHNIQUE: Frontal view of the chest. COMPARISON: No relevant prior studies available. FINDINGS: LUNGS AND PLEURAL SPACES: Pulmonary venous congestion. No consolidation. No pneumothorax. HEART: Unremarkable. No cardiomegaly. MEDIASTINUM: Unremarkable. Normal mediastinal contour. BONES/JOINTS: Unremarkable. No acute fracture. TUBES, LINES AND DEVICES: Left-sided cardiac pacemaker. RAD/Chest 1 View (Portable) IMPRESSION: Pulmonary venous congestion. Reading Location: [facility] CC: Dr. Roger Ambrosio DO; Dr. Brayden Balderrama MD Glassblower: Signed Normal [facility] Chloride assayOrdered By: Real Ambrosio on 01-12-2025 Chloride [Moles/Vol] 102 mmol/L 98-108 [facility] D-Dimer Quantitative (DVT/PE )on 01-12-2025 D-DIMER QUANT 1.66 FEU/ug/m Invalid Interpretation Code 0.27-0.49 [facility] Comment on above: Result Comment: D-Di nae ELEVATED (>0.49): Additional studies and clinical assessments are indicated to conclude diagnosis of: Deep Vein Thrombosis (DVT) or Pulmonary Embolism (PE) CRITICAL VALUE CALLED TO [place] FOREMAN 01/12/25 Debbi Bond. RESULTS READ BACK BY . Performed By: #### L 501.9520, L506.0400, L501.5200, L501.76701, L500.2500 #### [facility] Laboratory [address] [place], [address] D-dimer measurement for deep venous thrombosisOrdered By: Roger Ambrosio on 01-12-2025 D-Dimer Quantitative (PE/DVT) 1.66 FEU/ug/m High 0.27-0.49 [facility] Comment on above: D-Dimer ELEVATED (>0 .49): Additional studies and clinicalassessments are indicated to conclude diagnosis of:Deep Vein Thrombosis (DVT) or Pulmonary Embolism (PE)CRITICAL VALUE CALLED TO [place] FOREMAN01/12/25 Debbi Bond.RESULTS READ BACK BY . Emergency Department Summary on 01-12-2025 Emergency Department Summary [facility] Medical Records Department [address] [place] [address] Emergency Department Summary 01/12/25 MR#: [id number] Acct: [id number] Name: MAGUI TORRES Rep #: [id number] : 1940 84 From: Roger Ambrosio DO PCP: Dr. Brayden Balderrama MD Status:REG ER Location: ED ADDENDUM by Dr. Xavier Zhao MD on 01/12/25 at 1906 Correction needs to be made to the chart as I had documented that the initial troponin was 19 but was actually 23. The repeat was 21 at 2 hours. Disposition remains discharged home in stable condition. 01/12/251905 Cosigner Signature (if applicable): cc: Dr. Brayden Balderrama MD * Signed ADDENDUM by Dr. Xavier Zhao MD on 01/12/25 at 1905 Patient endorsed to me by Dr. Pastrana to check a second troponin on this patient that had a syncopal episode. He has had pacemaker inserted for his syncopal episode but he still experiences them. Initial troponin obtained and reviewed and was 19 with repeat being 21. At this point in time, I feel he can be discharged to follow-up with cardiology at [facility] as arranged by Dr. Pastrana. Disposition is discharged home in stable condition. 01/12/251904 Cosigner Signature (if applicable): cc: Dr. Brayden Balderrama MD * Signed HPI History of Present Illness Chief Complaint: Syncope Narrative Narrative: Chief complaint and HPI: Syncope. 84-year-old male with history of kidney cancer with nephrectomy in 2021, recurrent syncope, proximal atrial fibrillation not on anticoagulation, HTN, HLD presents for evaluation of syncope. Patient states that he has been having recurrent syncopal episodes. On December 22/2025 he received a [employer] pacemaker at [facility]. This was due to syncopal episode and loop recorder showing a pause of 3 seconds. Since placement patient is still having intermittent syncope. On chart review, his last syncopal episode was 01/04 in which she was seen in our emergency department. Ultimately discharged home. Patient states that his home nurse was at his house when he needed to have a bowel movement. He states he was holding it in the chair when he felt lightheaded and as if he was going to pass out. He states he then had a couple second episode of syncope. He denies any fever, chills, shortness of breath, abdominal pain, nausea, vomiting, dysuria. States that he feels like he is at his normal state of health currently. Patient is on metoprolol 12.5 mg daily as well as mexiletine 200 mg twice daily. Review of systems: See HPI Medications: As listed on the chart Allergies: As listed on the chart PFSH: Per chart Vital signs: As listed on the chart. Reviewed. Physical exam: Gen: A O x3, NAD Head: Normocephalic, atraumatic Eyes: No sclera icterus, conjunctiva clear ENT: Moist mucous membranes Neck: Trachea midline, No JVD CV: RRR, no murmurs, no peripheral edema Resp: Lungs CTA BL, no w/r/c GI: Abd soft, non-distended, non-tender, no r/r/g Musc: Full ROM, no deformity Skin: Warm, dry Neuro: Alert, oriented, grossly intact, sensation intact Psych: Cooperative, appropriate mood and affect [facility] Medical History (Updated 01/12/25 @ 00:02 by Background Daemon) Cardiac defibrillator in place Hypothyroidism Kidney stones Kidney disease Former smoker Atrial fibrillation Acute hemorrhoid Kidney disease Loss of hearing Wears glasses Cancer Thyroid disease Arthritis Prostate disease History of renal disease Back pain Injury of head and neck Dietary restriction History of diverticulitis Heartburn Chewing tobacco nicotine dependence History of pain when walking Hypertension History of stress test Cardiology follow-up encounter History of echocardiogram Chest pain TIA (transient ischemic attack) GI bleed Paroxysmal atrial fibrillation Essential (primary) hypertension Hyperlipidemia Home Medications ???Medication ???Instructions ???Recorded ???Last Taken ???Type multivitamin 1 tab PO DAILY 07/26/18 Unknown Hi story saw palmetto 1,000 mg capsule 1,000 mg PO DAILY 07/26/18 Unknown History cholecalciferol (vitamin D3) 25 50 mcg PO DAILY 04/25/22 Unknown H istory mcg/drop (1,000 unit/drop) oral drops levothyroxine 50 mcg tablet 50 mcg PO DAILY 04/25/22 05/10/22 04:30 History magnesium 200 mg tablet 200 mg PO QWEEK 05/17/23 Unknown H istory aspirin 81 mg capsule 81 mg PO DAILY 12/20/24 Unknown Hi story hydrochlorothiazide 12.5 mg capsule 12.5 mg PO DAILY 12/20/24 Unkno wn History metoprolol succinate 25 mg 12.5 mg PO DAILY 12/20/24 Unknown History tablet,extended release 24 hr mexiletine 200 mg capsule 200 mg PO Q8H 12/20/24 Unknown His tory Allergy/AdvReac Type Severity Reaction Status Date / Time animal dander Allergy unknown Verified 12/20/24 11:25 (more content not included)... Normal [facility] Eosinophil percentageOrdered By: Roger Ambrosio on 01-12-2025 Eosinophils/100 WBC (Bld) 2.8 % 0-5 [facility] Epithelial cells.squamous LM Ql (Urine sed)Ordered By: Roger Ambrosio on 01-12-2025 Epithelial cells.squamous LM.HPF (Urine sed) [#/Area] 0 /[HPF] 0-5 [facility] Erythrocyte distribution wid th ratioOrdered By: Roger Ambrosio on 01-12-2025 Erythrocyte distribution width (RBC) [Ratio] 13.5 % 11.6-14.6 [facility] Erythrocyte distribution wid th standard deviationOrdered By: Roger Roth on 01-12-2025 Erythrocyte distribution width (RBC) [Entitic vol] 44.0 fL High 35.1-43.9 [facility] Erythrocyte distribution width (RBC) [Ratio] 44.0 fl High 35.1-43.9 [facility] Estimation of creatinine humebrto aranceOrdered By: Roger Ambrosio on 01-12-2025 Estimated Creatinine Clearance Calc 33.75 ml/min Low 50-250 [facility] GFR/1.73 sq M.predicted anjel g non-blacks MDRD (S/P/Bld) [Vol rate/Area]Ordered By: Roger Ambrosio on 01-12-2025 Estimated GFR (MDRD) Non-Af Amer 39 Low >60 [facility] Comment on above: mL/min/1.73m2 CKD-EP I Creatinine Equation (2020) Glomerular filtration rate ( GFR) estimation/1.73 sq m using serum, plasma, or whole bOrdered By: Roger Ambrosio on 01-12-2025 GFR/1.73 sq M.predicted among non-blacks MDRD (S/P/Bld) [Vol rate/Area] 39 mL/min/{1.73_m2} Low >60 [facility] Comment on above: mL/min/1.73m2 CKD-EP I Creatinine Equation (2020) Glucose Ql (U)Ordered By: Real Ambrosio on 01-12-2025 Urine Glucose (UA) Normal mg/dl Normal [facility] Hematocrit Auto (Bld) [Volum e fraction]Ordered By: Roger Ambrosio on 01-12-2025 Hematocrit (Bld) [Volume fraction] 40.9 % 40-54 [facility] Hemoglobin measurementOrdere d By: Roger Ambrosio on 01-12-2025 Hemoglobin (Bld) [Mass/Vol] 14.1 g/dL 13.0-16.5 [facility] Immature granulocytes/100 WB C Auto (Bld)Ordered By: Roger Ambrosio on 01-12-2025 Immature granulocytes/100 WBC (Bld) 0.800 % 0.0-0.9 [facility] Comment on above: IG% - Immature Granu locytes (promyelocytes, myelocytes and metamyelocytes) > 1% indicates that a LEFT SHIFT is Present. International normalized rat io (INR) calculationOrdered By: Roger Ambrosio on 01-12-2025 INR Coag (Bld) [Relative time] 1.2 {INR} [facility] Ketones Test strip Ql (U)Ord ered By: Roger Ambrosio on 01-12-2025 Ketones Ql (U) Negative Negative [facility] L499.0042on 01-12-2025 Trop T High Sen 21 ng/L Normal <=22 [facility] Comment on above: Performed By: #### L [id number], L506.0400, L501.5200, L501.10826, L500.2500 #### [facility] Laboratory [address] [place], [address] L501.4021on 01-12-2025 Trop T High Sen 23 ng/L High <=22 [facility] Comment on above: Performed By: #### L [id number], L506.0400, L501.5200, L501.10671, L500.2500 #### [facility] [address] [place], [address] L503.7505on 01-12-2025 Natriuretic peptide B (Bld) [Mass/Vol] 157 pg/mL Normal <=1800 [facility] Comment on above: Result Comment: Hear t Failure Unlikely: < 300 pg/mL Heart Failure Likely < 50 Years: > 450 pg/mL 50-75 Years: > 900 pg/mL >75 Years: > 1800 pg/mL Performed By: #### L [id number], L506.0400, L501.5200, L501.53598, L500.2500 #### [facility] [place], [address] Laboratory - Chemistry and C hemistry - challengeOrdered By: Roger Ambrosio on 01-12-2025 Natriuretic peptide B (Bld) [Mass/Vol] 157 pg/mL <1800 [facility] Comment on above: Heart Failure Unlike ly: < 300 pg/mLHeart Failure Likely< 50 Years: > 450 pg/mL50-75 Years: > 900 pg/mL>75 Years: > 1800 pg/mL Lymphocytes Auto (Unsp spec) [#/Vol]Ordered By: Roger Ambrosio on 01-12-2025 Lymphocytes (Bld) [#/Vol] 1.33 10*3/uL 0.83-4.51 [facility] Lymphocytes/100 WBC Auto (Un sp spec)Ordered By: Roger Ambrosio on 01-12-2025 Lymphocytes/100 WBC (Bld) 12.2 % Low 19-41 [facility] MCV (mean corpuscular volume ) determinationOrdered By: Roger Ambrosio on 01-12-2025 MCV (RBC) [Entitic vol] 88.9 fL 80-94 [facility] Mean corpuscular hemoglobin (MCH) determinationOrdered By: Roger Ambrosio on 01-12-2025 MCH (RBC) [Entitic mass] 30.7 pg 27.0-32.0 [facility] Mean corpuscular hemoglobin concentration (MCHC) determinationOrdered By: Roger Daily on 01-12-2025 MCHC (RBC) [Mass/Vol] 34.5 g/dL 32-36 [facility] Mean platelet volume determi nationOrdered By: Roger Ambrosio on 01-12-2025 Platelet mean volume (Bld) [Entitic vol] 9.8 fL 6.2-12.0 [facility] Microscopic analysis of urin e for red blood cells (RBC)Ordered By: Roger Ambrosio on 01-12-2025 Microscopic analysis of urine for red blood cells (RBC) 0 SEEN /hpf 0-5 [facility] Urine RBC 0 SEEN /hpf 0-5 [facility] Monocyte percentageOrdered B y: Roger Ambrosio on 01-12-2025 Monocytes/100 WBC (Bld) 10.3 % High 0-10 [facility] Mucus LM Ql (Urine sed)Order ed By: Roger Ambrosio on 01-12-2025 Mucus Ql (Urine sed) 0 SEEN /hpf [facility] Neutrophil percentageOrdered By: Roger Ambrosio on 01-12-2025 Neutrophils/100 WBC (Bld) 73.1 % High 47-70 [facility] Nitrite Test strip Ql (U)Ord ered By: Roger Ambroiso on 01-12-2025 Nitrite Ql (U) Negative Negative [facility] No Panel InformationOrdered By: Roger Ambrosio on 01-12-2025 Troponin T High Sensitivity 23 ng/L High <22 [facility] Comment on above: Delta: 28 on 5-1300 Nucleated red blood cell per centageOrdered By: Roger Ambrosio on 01-12-2025 Nucleated RBC/100 WBC (Bld) [Ratio] 0 % 0-5 [facility] Partial Thromboplast Timeon 01-12-2025 aPTT Coag (Bld) [Time] 28.5 s Normal 24.1-36.2 [facility] Comment on above: Performed By: #### L [id number], L506.0400, L501.5200, L501.42084, L500.2500 #### [facility] Laboratory [address] [place], [place] [address], [address] Platelet countOrdered By: Real Ambrosio on 01-12-2025 Platelets (Bld) [#/Vol] 239 10*3/uL 150-450 [facility] Potassium (Unsp spec) [Mass/ Vol]Ordered By: Roger Ambrosio on 01-12-2025 Potassium [Moles/Vol] 4.3 mmol/L 3.3-5.1 [facility] Potassium measurement (mass/ volume)Ordered By: Roger Ambrosio on 01-12-2025 Potassium (Unsp spec) [Mass/Vol] 4.3 mmol/L 3.3-5.1 [facility] Protein Test strip Ql (U)Ord ered By: Roger Ambrosio on 01-12-2025 Protein Ql (U) 30 mg/dl High Negative [facility] Prothrombin Time w/INRon INR Coag (PPP) [Relative time] 1.2 {INR} Normal [facility] Comment on above: Performed By: #### L [id number], L506.0400, L501.5200, L501.04627, L500.2500 #### [facility] Laboratory [address] [facility] [place], [place], [id number] Prothrombin timeOrdered By: Roger Ambrosio on 01-12-2025 PT Coag (PPP) [Time] 15.2 s High 11.7-14.9 [facility] Comment on above: Performed By: #### L [id number], L506.0400, L501.5200, L501.91866, L500.2500 #### [facility] Laboratory [address] [facility] [place], [place], [address] RBC Auto (Bld) [#/Vol]Ordere d By: Roger Ambrosio on 01-12-2025 RBC (Bld) [#/Vol] 4.60 10*6/uL 4.6-6.[address] [facility] Serum creatinine measurement (mass/volume)Ordered By: Roger Ambrosio on 01-12-2025 Creatinine [Mass/Vol] 1.74 mg/dL High 0.70-1.20 [facility] Serum glucose measurement (m ass/volume)Ordered By: Roger Ambrosio on 01-12-2025 Glucose [Mass/Vol] 99 mg/dL 70-99 [facility] Serum or plasma calcium tasha urement (mass/volume)Ordered By: Roger Roth on 01-12-2025 Calcium [Mass/Vol] 9.2 mg/dL 7.6-11.0 [facility] Serum or plasma urea nitroge n measurement (mass/volume)Ordered By: Roger Ambrosio on 01-12-2025 Urea nitrogen [Mass/Vol] 28 mg/dL High 4-19 [facility] Sodium levelOrdered By: Eric Ambrosio on 01-12-2025 Sodium [Moles/Vol] 137 mmol/L 133-145 [facility] Squamous epithelial cells de tection in urine sediment by light microscopyOrdered By: Roger Ambrosio on 01-12-2025 Epithelial cells.squamous LM Ql (Urine sed) 0 SEEN /hpf 0-5 [facility] Troponin T.cardiac High sens itivity method [Mass/Vol]Ordered By: Roger Roth on 01-12-2025 Troponin T High Sensitivity 2 Hour 21 ng/L <22 [facility] Troponin T.cardiac [Mass/vol ume] in Serum or Plasma by High sensitivity methodOrdered By: Roger Ambrosio on 01-12-2025 Troponin T.cardiac High sensitivity method [Mass/Vol] 21 ng/L <22 [facility] Urinalysis, Completeon 01-12 RBC 0 SEEN Normal 0-5 [facility] Comment on above: Order Comment: CLEAN CATCH Performed By: #### L [id number], L506.0400, L501.5200, L501.89064, L500.2500 #### [facility] Laboratory [address] [place], [address] WBC 0-5 SEEN Normal 0-5 [facility] Comment on above: Order Comment: CLEAN CATCH Performed By: #### L [id number], L506.0400, L501.5200, L501.49490, L500.2500 #### [facility] Laboratory [address] [place], [address] BACTERIA 0 SEEN Normal None Seen [facility] Comment on above: Order Comment: CLEAN CATCH Performed By: #### L [id number], L506.0400, L501.5200, L501.72273, L500.2500 #### [facility] Laboratory [address] [place], [address] EPI,SQUAMOUS 0 SEEN Normal 0-5 [facility] Comment on above: Order Comment: CLEAN CATCH Performed By: #### L [id number], L506.0400, L501.5200, L501.48747, L500.2500 #### [facility] Laboratory [address] [place], [address] Mucus Ql (Urine sed) 0 SEEN Normal [facility] Comment on above: Order Comment: CLEAN CATCH Performed By: #### L [id number], L506.0400, L501.5200, L501.09729, L500.2500 #### [facility] [address] [place], [address] Urine blood detectionOrdered By: Roger Ambrosio on 01-12-2025 Urine Occult Blood Negative Negative [facility] Urine clarityOrdered By: Joel Ambrosio on 01-12-2025 Clarity (U) Clear Clear [facility] Urine color determinationOrd ered By: Roger Ambrosio on 01-12-2025 Color (U) Yellow Yellow [facility] Urine glucose detectionOrder ed By: Roger Ambrosio on 01-12-2025 Glucose Ql (U) Normal mg/dl Normal [facility] Urine leukocyte esterase det ection by dipstickOrdered By: Roger Ambrosio on 01-12-2025 Leukocyte esterase Test strip Ql (U) Negative Negative [facility] Urine pHOrdered By: Roger Vargas on 01-12-2025 pH (U) 7.0 [pH] 5.0 - 8.0 [facility] Urine sediment bacteria coun t by microscopy (number/high power field)Ordered By: Roger Ambrosio on 01-12-2025 Bacteria LM.HPF (Urine sed) [#/Area] 0 /[HPF] None Seen [facility] Urine specific gravity measu rementOrdered By: Roger Ambrosio on 01-12-2025 Specific gravity (U) [Rel density] 1.005 1.002-1.030 [facility] Urine urobilinogen measureme ntOrdered By: Roger Ambrosio on 01-12-2025 Urobilinogen Ql (U) 4 mg/dl High Normal [facility] Urobilinogen Ql (U)Ordered B y: Roger Ambrosio on 01-12-2025 Urobilinogen (U) [Mass/Vol] 4 mg/dL High Normal [facility] White blood cell (WBC) count Ordered By: Roger Ambrosio on 01-12-2025 WBC (Bld) [#/Vol] 10.9 10*3/uL 4.4-11.[address] [facility] White blood cell countOrdere d By: Roger Ambrosio on 01-12-2025 Urine WBC 0-5 SEEN /hpf 0-5 [facility] White blood cell count 0-5 SEEN /hpf 0-5 [facility] aPTT Coag (PPP) [Time]Ordere d By: Roger Ambrosio on 01-12-2025 aPTT Coag (Bld) [Time] 28.5 s 24.1-36.2 [facility] 12 Lead EKGon 01-04-2025 12 Lead EKG [facility] [address] [place] [address] 12 Lead EKG 01/04/25 1357 MR#: [id number] Acct: [id number] Name: MAGUI TORRES Rep #: [id number] : 1940 84 From: Nixon Restrepo MD Attending Dr: Status: DEP ER Ordering Dr: Brayden Mcguire Date: 01/04/25 Location: ED Sex: M C Admitted: Test Reason : SYNCOPE Blood Pressure : */* mmHG Vent. Rate : 63 BPM Atrial Rate : 63 BPM P-R Int : 178 ms QRS Dur : 122 ms QT Int : 442 ms P-R-T Axes : 119 30 52 degrees QTcB Int : 452 ms AV dual-paced rhythm Abnormal ECG Confirmed by DWAYNE PRINCE, NIXON ([id number]), greeting card editor JOURDAN CHEN ([id number]) on 01/05/2025 8:23:33 AM Referred By: Kehinde Smith Confirmed By: NIXON RESTREPO MD 01/05/25822 Date Nixon Restrepo MD CC: DENIZ Mcguire; Dr. Kehined Smith, DO; Dr. Brayden Balderrama MD Signed Normal [facility] Absolute lymphocyte countOrd ered By: Brayden Mcguire on 01-04-2025 Lymphocytes Auto (Unsp spec) [#/Vol] 4.77 10*3/uL High 0.83-4.51 [facility] Absolute neutrophil countOrd ered By: Brayden Mcguire on 01-04-2025 Neutrophils (Bld) [#/Vol] 4.4 10*3/uL 2.0-7.7 [facility] Anion gap in Serum or Plasma Ordered By: Brayden Mcguire on 01-04-2025 Anion gap [Moles/Vol] 16 mmol/L High 5-15 [facility] Automated blood erythrocyte countOrdered By: Brayden Mcguire on 01-04-2025 RBC (Bld) [#/Vol] 4.82 10*6/uL Normal 4.6-6.[address] [facility] Comment on above: Performed By: #### L 501.9520, L506.0400, L501.5200, L501.73447, L500.2500 #### [facility] Laboratory [facility] [place], [address] Automated blood hematocrit ( percentage)Ordered By: Brayden Mcguire on 01-04-2025 Hematocrit (Bld) [Volume fraction] 41.7 % Normal 40-54 [facility] Comment on above: Performed By: #### L 501.9520, L506.0400, L501.5200, L501.14507, L500.2500 #### [facility] [address] [place], [address] Automated lymphocyte count a s percentage of total leukocytesOrdered By: Brayden Mcguire on 01-04-2025 Lymphocytes/100 WBC (Bld) 43.2 % High -41 [facility] Comment on above: Performed By: #### L [id number], L506.0400, L501.5200, L501.71308, L500.2500 #### [facility] Laboratory [address] [place], [address] Lymphocytes/100 WBC Auto (Unsp spec) 43.2 % High - [facility] BUN/creatinine ratioOrdered By: Brayden Mcguire on 01-04-2025 Urea nitrogen/Creatinine [Mass ratio] 14.2 mg/mg 10- [facility] Basic Metabolic Profile (BMP )on 01-04-2025 BUN/CRE 14.2 RATIO Normal - [facility] Comment on above: Performed By: #### L 501.9520, L506.0400, L501.5200, L501.05551, L500.2500 #### [facility] [address] [place], [address] ECRCL 29.55 ml/min Low 50-250 [facility] Comment on above: Performed By: #### L 501.9520, L506.0400, L501.5200, L501.92901, L500.2500 #### [facility] [address] [place], [address] GAP 16 High 5-15 [facility] Comment on above: Performed By: #### L [id number], L506.0400, L501.5200, L501.98531, L500.2500 #### [facility] [address] [place], [address] Basophil percentageOrdered B y: Brayden Mcguire on 01-04-2025 Basophils/100 WBC (Bld) 1.0 % Normal 0-1 [facility] Comment on above: Performed By: #### L [id number], L506.0400, L501.5200, L501.26545, L500.2500 #### [facility] [address] [place], [address] CBC W/Diff, Automatedon 12-20 Absolute Lymph 4.77 X10 3/uL High 0.83-4.51 [facility] Comment on above: Performed By: #### L [id number], L506.0400, L501.5200, L501.40652, L500.2500 #### [facility] [address] [place], [address] Absolute Neut 4.4 X10 3/uL Normal 2.0-7.7 [facility] Comment on above: Performed By: #### L [id number], L506.0400, L501.5200, L501.62735, L500.2500 #### [facility] [address] [place], [address] IG% 0.400 Normal 0.0-0.9 [facility] Comment on above: Result Comment: IG% - Immature Granulocytes (promyelocytes, myelocytes and metamyelocytes) > 1% indicates that a LEFT SHIFT is Present. Performed By: #### L 501.9520, L506.0400, L501.5200, L501.71743, L500.2500 #### [facility] [address] [place], [address] Nucleated RBC (Bld) [#/Vol] 0 10*3/uL Normal 0-5 [facility] [facility] Comment on above: Performed By: #### L 501.9520, L506.0400, L501.5200, L501.36564, L500.2500 #### [facility] [address] [place], [address] RDW SD 42.3 fl Normal 35.1-43.9 [facility] Comment on above: Performed By: #### L [id number], L506.0400, L501.5200, L501.03928, L500.2500 #### [facility] [address] [facility] [place], [address] Carbon dioxide, total [Moles /volume] in Central venous bloodOrdered By: Brayden Mcguire on 01-04-2025 CO2 [Moles/Vol] 17.5 mmol/L Low 21.0-32.0 [facility] Comment on above: Performed By: #### L 501.9520, L506.0400, L501.5200, L501.80815, L500.2500 #### [facility] [address] [place], [address] Chest 1 View (Portable)on Chest 1 View (Portable) [facility] Imaging Services [address] [place] [address] Chest 1 View (Portable) MR#: [id number] Acct: [id number] Name: MAGUI TORRES Rep #: [id number] : 1940 M 84 From: Joe Lara PCP: Dr. 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 COMPARISON: None. FINDINGS: Left cardiac pacer in place. Cardiomediastinal silhouette is within normal limits. Lungs are clear. No sizable pneumothorax. RAD/Chest 1 View (Portable) IMPRESSION: No acute airspace abnormality. Reading Location: [facility] CC: DENIZ Mcguire; Dr. Brayden Balderrama MD Glassblower: Signed Normal [facility] Chloride assayOrdered By: Carl Mcguire on 01-04-2025 Chloride [Moles/Vol] 103 mmol/L Normal 98-108 [facility] Comment on above: Performed By: #### L 501.9520, L506.0400, L501.5200, L501.32837, L500.2500 #### [facility] [address] [facility] [place], [address] Emergency Department Summary on 01-04-2025 Emergency Department Summary [facility] Medical Records Department [address] [place] [address] Emergency Department Summary 01/04/25 MR#: [id number] Acct: [id number] Name: MAGUI TORRES Rep #: [id number] : 1940 84 From: Kehinde Smith DO PCP: Dr. Brayden Balderrama MD Status:DEP ER Location: ED HPI History of Present Illness Chief Complaint: Syncope Narrative Narrative: Patient is an 84-year-old male with history of kidney cancer with nephrectomy in 2021. Patient is a recent recipient on December 22, 2024 of a [employer] pacemaker. The patient was seen here on December 20, 2024 for a syncopal episode, at that time the loop recorder showed a pause of 3 seconds. Patient's cardiology is at [place], he was transferred there and a pacemaker was placed. Patient has been doing well. Patient was at the same restaurant, he started feeling lightheaded, and had a syncopal episode leading over in the trivedi. Patient was brought by EMS. Patient is alert and orient x 4 on arrival. Denies any chest pain, denies any recent infections or fevers or chills. [facility] Medical History (Updated 01/04/25 @ 16:32 by DENIZ Heard) Cardiac defibrillator in place Hypothyroidism Kidney stones Kidney disease Former smoker Atrial fibrillation Acute hemorrhoid Kidney disease Loss of hearing Wears glasses Cancer Thyroid disease Arthritis Prostate disease History of renal disease Back pain Injury of head and neck Dietary restriction History of diverticulitis Heartburn Chewing tobacco nicotine dependence History of pain when walking Hypertension History of stress test Cardiology follow-up encounter History of echocardiogram Chest pain TIA (transient ischemic attack) GI bleed Paroxysmal atrial fibrillation Essential (primary) hypertension Hyperlipidemia Home Medications ???Medication ???Instructions ???Recorded ???Last Taken ???Type multivitamin 1 tab PO DAILY 07/26/18 Unknown Hi story saw palmetto 1,000 mg capsule 1,000 mg PO DAILY 07/26/18 Unknown History cholecalciferol (vitamin D3) 25 50 mcg PO DAILY 04/25/22 Unknown H istory mcg/drop (1,000 unit/drop) oral drops levothyroxine 50 mcg tablet 50 mcg PO DAILY 04/25/22 05/10/22 04:30 History magnesium 200 mg tablet 200 mg PO QWEEK 05/17/23 Unknown H istory aspirin 81 mg capsule 81 mg PO DAILY 12/20/24 Unknown Hi story hydrochlorothiazide 12.5 mg capsule 12.5 mg PO DAILY 12/20/24 Unkno wn History metoprolol succinate 25 mg 12.5 mg PO DAILY 12/20/24 Unknown History tablet,extended release 24 hr mexiletine 200 mg capsule 200 mg PO Q8H 12/20/24 Unknown His tory Allergy/AdvReac Type Severity Reaction Status Date / Time animal dander Allergy unknown Verified 12/20/24 11:25 mold Allergy unknown Verified 12/20/24 11:25 pollen extracts Allergy unknown Verified 12/20/24 11:25 Milk Containing Products AdvReac Mild Abd Verified 12/20/24 15:51 (Dairy) cramps/diarrhea amoxicillin AdvReac Nausea/vomi Verified 12/20/24 11:25 ting lisinopril AdvReac Headaches Verified 12/20/24 11:25 Poultry AdvReac Abd Verified 12/20/24 15:51 cramps/diarrhea Family History Father Myocardial infarction from MS age 56 Mother Heart disease CHF Grandfather Myocardial infarction from MS age 53 Surgical History History of cholecystectomy History of nephrectomy Hx of colonoscopy Hx of hand surgery Hx laparoscopic cholecystectomy History of nasal septoplasty History of appendectomy Social History Smoking Status: Current some day smoker tobacco type: smokeless tobacco Smokeless tobacco user: chewing tobacco how long ago did patient quit smokin alcohol intake: never substance use type: does not use caffeine: Yes Type: coffee Number of servings: 2, tea Number of servings: 2 and other ROS ROS ED ROS Narrative Constitutional: Negative for fever, chills, weight loss, weakness Eyes: Negative for vision loss, vision change, double vision ENT: Negative for any sore throat, ear pain, congestion Cardiovascular: Negative for any chest pain, tightness, palpitations Respiratory: Negative for any cough, sputum production, hemoptysis, dyspnea, dyspnea on exertion, orthopnea Gastrointestinal: Negative for any abdominal pain, nausea, vomiting, diarrhea, constipation, blood in stool, blood in vomit : Negative for any urinary frequency, dysuria, retention, blood in urine Muscle skeletal: Negative for any neck pain, back pain Neurological: Negative for any headache. Positive for syncope Skin: Negative for any rashes, itching, abrasions, lacerations Psychiatric: Negative for any depression, anxiety, stress, suici (more content not included)... Normal [facility] Eosinophil percentageOrdered By: Brayden Mcguire on 01-04-2025 Eosinophils/100 WBC (Bld) 3.9 % Normal 0-5 [facility] Comment on above: Performed By: #### L 501.9520, L506.0400, L501.5200, L501.41590, L500.2500 #### [facility] [address] [place], [place], [id number] Erythrocyte distribution wid th ratioOrdered By: Brayden Mcguire on 01-04-2025 Erythrocyte distribution width (RBC) [Ratio] 13.9 % Normal 11.6-14.6 [facility] Comment on above: Performed By: #### L 501.9520, L506.0400, L501.5200, L501.09866, L500.2500 #### [facility] [address] [place], [address] Erythrocyte distribution wid th standard deviationOrdered By: Brayden Mcguire on 01-04-2025 Erythrocyte distribution width (RBC) [Entitic vol] 42.3 fL 35.1-43.9 [facility] Erythrocyte distribution width (RBC) [Ratio] 42.3 fl 35.1-43.9 [facility] Estimation of creatinine humberto aranceOrdered By: Brayden Mcguire on 01-04-2025 Estimated Creatinine Clearance Calc 29.55 ml/min Low 50-250 [facility] GFR/1.73 sq M.predicted anjel g non-blacks MDRD (S/P/Bld) [Vol rate/Area]Ordered By: Brayden Mcguire on 01-04-2025 Estimated GFR (MDRD) Non-Af Amer 33 Low >60 [facility] Comment on above: mL/min/1.73m2 CKD-EP I Creatinine Equation (2020) Glomerular filtration rate ( GFR) estimation/1.73 sq m using serum, plasma, or whole bOrdered By: Brayden Mcguire on 01-04-2025 GFR/1.73 sq M.predicted among non-blacks MDRD (S/P/Bld) [Vol rate/Area] 33 mL/min/{1.73_m2} Low >60 [facility] Comment on above: mL/min/1.73m2 CKD-EP I Creatinine Equation (2020) Result Comment: mL/m in/1.73m2 CKD-EPI Creatinine Equation (2020) Performed By: #### L 501.9520, L506.0400, L501.5200, L501.16615, L500.2500 #### [facility] [address] [place], [place], [id number] Hemoglobin measurementOrdere d By: Brayden Mcguire on 01-04-2025 Hemoglobin (Bld) [Mass/Vol] 14.7 g/dL Normal 13.0-16.5 [facility] Comment on above: Performed By: #### L 501.9520, L506.0400, L501.5200, L501.15659, L500.2500 #### [facility] [address] [place], [address] Immature granulocytes/100 WB C Auto (Bld)Ordered By: Brayden Mcguire on 01-04-2025 Immature granulocytes/100 WBC (Bld) 0.400 % 0.0-0.9 [facility] Comment on above: IG% - Immature Granu locytes (promyelocytes, myelocytes and metamyelocytes) > 1% indicates that a LEFT SHIFT is Present. International normalized rat io (INR) calculationOrdered By: Brayden Mcguire on 01-04-2025 INR Coag (Bld) [Relative time] 1.0 {INR} [facility] L499.0042on 01-04-2025 Trop T High Sen 19 ng/L Normal <=22 [facility] Comment on above: Result Comment: Hemo lysis present, Results??could be affected. ?? Performed By: #### L 501.9520, L506.0400, L501.5200, L501.76659, L500.2500 #### [facility] [address] [place], [address] L501.4021on 01-04-2025 Trop T High Sen 28 ng/L High <=22 [facility] Comment on above: Performed By: #### L 501.9520, L506.0400, L501.5200, L501.53405, L500.2500 #### [facility] [address] [place], [address] Lymphocytes Auto (Unsp spec) [#/Vol]Ordered By: Brayden Mcguire on 01-04-2025 Lymphocytes (Bld) [#/Vol] 4.77 10*3/uL High 0.83-4.51 [facility] MCV (mean corpuscular volume ) determinationOrdered By: Brayden Mcguire on 01-04-2025 MCV (RBC) [Entitic vol] 86.5 fL Normal 80-94 [facility] Comment on above: Performed By: #### L 501.9520, L506.0400, L501.5200, L501.89990, L500.2500 #### [facility] [address] [place], [address] Mean corpuscular hemoglobin (MCH) determinationOrdered By: Brayden Mcguire on 01-04-2025 MCH (RBC) [Entitic mass] 30.5 pg Normal 27.0-32.0 [facility] Comment on above: Performed By: #### L 501.9520, L506.0400, L501.5200, L501.50560, L500.2500 #### [facility] [address], [address] Mean corpuscular hemoglobin concentration (MCHC) determinationOrdered By: Brayden Mcguire on 01-04-2025 MCHC (RBC) [Mass/Vol] 35.3 g/dL Normal 32-36 [facility] Comment on above: Performed By: #### L 501.9520, L506.0400, L501.5200, L501.83955, L500.2500 #### [facility] [address] [place], [place], [id number] Mean platelet volume determi nationOrdered By: Brayden Mcguire on 01-04-2025 Platelet mean volume (Bld) [Entitic vol] 10.4 fL Normal 6.2-12.0 [facility] Comment on above: Performed By: #### L 501.9520, L506.0400, L501.5200, L501.18907, L500.2500 #### [facility] [address] [place], [address] Monocyte percentageOrdered B y: Brayden Mcguire on 01-04-2025 Monocytes/100 WBC (Bld) 11.4 % High 0-10 [facility] Comment on above: Performed By: #### L 501.9520, L506.0400, L501.5200, L501.51750, L500.2500 #### [facility] [address] [place], [address] Neutrophil percentageOrdered By: Brayden Mcguire on 01-04-2025 Neutrophils/100 WBC (Bld) 40.1 % Low 47-70 [facility] Comment on above: Performed By: #### L 501.9520, L506.0400, L501.5200, L501.99227, L500.2500 #### [facility] [address] [place], [place], [id number] No Panel InformationOrdered By: Brayden Mcguire on 01-04-2025 Troponin T High Sensitivity 28 ng/L High <22 [facility] Comment on above: Delta: 19 on 5-1130 Nucleated red blood cell per centageOrdered By: Brayden Mcguire on 01-04-2025 Nucleated RBC/100 WBC (Bld) [Ratio] 0 % 0-5 [facility] Platelet countOrdered By: Carl Mcguire on 01-04-2025 Platelets (Bld) [#/Vol] 297 10*3/uL Normal 150-450 [facility] Comment on above: Performed By: #### L 501.9520, L506.0400, L501.5200, L501.71035, L500.2500 #### [facility] [address] [place], [address] Potassium measurement (mass/ volume)Ordered By: Brayden Mcguire on 01-04-2025 Potassium [Moles/Vol] 4.3 mmol/L Normal 3.3-5.1 [facility] Comment on above: Hemolysis present, R esults could be affected. Result Comment: Hemo lysis present, Results??could be affected. ?? Performed By: #### L 501.9520, L506.0400, L501.5200, L501.88977, L500.2500 #### [facility] [address] [place], [address] Potassium (Unsp spec) [Mass/Vol] 4.3 mmol/L 3.3-5.1 [facility] Comment on above: Hemolysis present, R esults could be affected. Prothrombin Time w/INRon INR Coag (PPP) [Relative time] 1.0 {INR} Normal [facility] Comment on above: Performed By: #### L 501.9520, L506.0400, L501.5200, L501.66496, L500.2500 #### [facility] [address] [place], [address] Prothrombin timeOrdered By: Brayden Mcguire on 01-04-2025 PT Coag (PPP) [Time] 13.3 s Normal 11.7-14.9 [facility] Comment on above: Performed By: #### L 501.9520, L506.0400, L501.5200, L501.35589, L500.2500 #### [facility] [address] [facility] [place], [address] Serum creatinine measurement (mass/volume)Ordered By: Brayden Mcguire on 01-04-2025 Creatinine [Mass/Vol] 1.99 mg/dL High 0.70-1.20 [facility] Comment on above: Performed By: #### L 501.9520, L506.0400, L501.5200, L501.28334, L500.2500 #### [facility] [address] [facility] [place], [address] Serum glucose measurement (m ass/volume)Ordered By: Brayden Mcguire on 01-04-2025 Glucose [Mass/Vol] 116 mg/dL High 70-99 [facility] Comment on above: Performed By: #### L 501.9520, L506.0400, L501.5200, L501.65002, L500.2500 #### [facility] [address] [facility] [place], [address] Serum or plasma calcium tasha urement (mass/volume)Ordered By: Brayden Mcguire on 01-04-2025 Calcium [Mass/Vol] 9.5 mg/dL Normal 7.6-11.0 [facility] Comment on above: Performed By: #### L 501.9520, L506.0400, L501.5200, L501.78668, L500.2500 #### [facility] [address] [place], [place], [id number] Serum or plasma urea nitroge n measurement (mass/volume)Ordered By: Brayden Mcguire on 01-04-2025 Urea nitrogen [Mass/Vol] 28 mg/dL High 4-19 [facility] Comment on above: Performed By: #### L 501.9520, L506.0400, L501.5200, L501.68120, L500.2500 #### [facility] [address] [place], [address] Sodium levelOrdered By: Brayden Mcguire on 01-04-2025 Sodium [Moles/Vol] 136 mmol/L Normal 133-145 [facility] Comment on above: Performed By: #### L 501.9520, L506.0400, L501.5200, L501.12899, L500.2500 #### [facility] [address] [facility] [place], [place], [id number] Troponin T.cardiac High sens itivity method [Mass/Vol]Ordered By: Brayden Mcguire on 01-04-2025 Troponin T High Sensitivity 2 Hour 19 ng/L <22 [facility] Comment on above: Hemolysis present, R esults could be affected. Troponin T.cardiac [Mass/vol ume] in Serum or Plasma by High sensitivity methodOrdered By: Brayden Mcguire on 01-04-2025 Troponin T.cardiac High sensitivity method [Mass/Vol] 19 ng/L <22 [facility] Comment on above: Hemolysis present, R esults could be affected. White blood cell (WBC) count Ordered By: Brayden Mcguire on 01-04-2025 WBC (Bld) [#/Vol] 11.0 10*3/uL Normal 4.4-11.[address] [facility] Comment on above: Performed By: #### L 501.9520, L506.0400, L501.5200, L501.70349, L500.2500 #### [facility] [address] [place], [address] .Auto Diffon 12-24-2024 Basophil, Absolute 0.0 10 3/mcL Normal 0.0-0.3 [facility] Comment on above: Performed By: #### C BC, ANEU, GFR, TSHR, MG, BMP, ADIFF #### [address] [address] Basophils/100 WBC (Bld) 0.4 % Normal 0.0-2.5 [facility] Comment on above: Performed By: #### C BC, ANEU, GFR, TSHR, MG, BMP, ADIFF #### [address] [address] Eosinophil, Absolute 0.4 10 3/mcL Normal 0.0-0.7 [facility] Comment on above: Performed By: #### C BC, ANEU, GFR, TSHR, MG, BMP, ADIFF #### [address] [address] Eosinophils/100 WBC (Bld) 4.1 % Normal 0.0-6.0 [facility] Comment on above: Performed By: #### C BC, ANEU, GFR, TSHR, MG, BMP, ADIFF #### [address] [address] Lymphocyte, Absolute 1.9 10 3/mcL Normal 0.9-4.3 [facility] Comment on above: Performed By: #### C BC, ANEU, GFR, TSHR, MG, BMP, ADIFF #### [address] [address] Lymphocytes/100 WBC (Bld) 19.6 % Low 20.0-40.0 [facility] Comment on above: Performed By: #### C BC, ANEU, GFR, TSHR, MG, BMP, ADIFF #### [address] [address] Monocyte, Absolute 1.2 10 3/mcL Normal 0.1-1.4 [facility] Comment on above: Performed By: #### C BC, ANEU, GFR, TSHR, MG, BMP, ADIFF #### [address] [address] Monocytes/100 WBC (Bld) 11.9 % Normal 2.0-13.0 [facility] Comment on above: Performed By: #### C BC, ANEU, GFR, TSHR, MG, BMP, ADIFF #### [address] [address] Neutrophils/100 WBC (Bld) 64.0 % Normal 50.0-75.0 [facility] Comment on above: Performed By: #### C BC, ANEU, GFR, TSHR, MG, BMP, ADIFF #### [address] [address] .GFRon 12-24-2024 Estimated Glomerular Filtration Rate 37 ml/min/1.73sqm Normal [facility] Comment on above: Result Comment: Stages of Chronic Kidney Disease (CKD) Stage Description eGFR(ml/min/1.73 sq.m.) CKD 1 Normal kidney function or >=90 normal kindney function with possible kidney damage (ex. Proteinuria) CKD 2 Kidney damage with mild loss 60-89 of kidney function CKD 3a Mild to moderate loss of kidney 45-59 function CKD 3b Moderate to severe loss of 30-44 of kindey function CKD 4 Severe loss of kidney function 15-29 CKD 5 Kidney failure <15 Note: (go live 2024) the eGFR calculation was updated to the 2020 CKD-EPI creatinine equation without a race factor to calculate the eGFR results. Performed By: #### C BC, ANEU, GFR, TSHR, MG, BMP, ADIFF #### [address] [address] .NEUABSon 12-24-2024 Neutrophil, Absolute 6.2 10 3/mcL Normal 2.3-8.1 [facility] Comment on above: Performed By: #### C BC, ANEU, GFR, TSHR, MG, BMP, ADIFF #### [address] [address] BMPon 12-24-2024 BUN/Creatinine Ratio 18.3 ratio Normal 10.0-22.0 [facility] Comment on above: Performed By: #### C BC, ANEU, GFR, TSHR, MG, BMP, ADIFF #### [address] [address] Calcium [Mass/Vol] 9.1 mg/dL Normal 8.7-10.4 [facility] Comment on above: Performed By: #### C BC, ANEU, GFR, TSHR, MG, BMP, ADIFF #### [address] [address] Chloride [Moles/Vol] 105 mmol/L Normal 98-110 [facility] Comment on above: Performed By: #### C BC, ANEU, GFR, TSHR, MG, BMP, ADIFF #### [address] [address] CO2 [Moles/Vol] 22 mmol/L Normal 22-32 [facility] Comment on above: Performed By: #### C BC, ANEU, GFR, TSHR, MG, BMP, ADIFF #### [address] [address] Creatinine [Mass/Vol] 1.80 mg/dL High 0.60-1.40 [facility] Comment on above: Result Comment: Test ing performed on DietBetter analyzer using enzymatic creatinine methodology. Performed By: #### C BC, ANEU, GFR, TSHR, MG, BMP, ADIFF #### [address] [address] Electrolyte Balance 8.0 mEq/L Normal 4.0-15.0 [facility] Comment on above: Performed By: #### C BC, ANEU, GFR, TSHR, MG, BMP, ADIFF #### [address] [address] Glucose [Mass/Vol] 94 mg/dL Normal 82-115 [facility] Comment on above: Performed By: #### C BC, ANEU, GFR, TSHR, MG, BMP, ADIFF #### [address] [address] Potassium [Moles/Vol] 4.4 mmol/L Normal 3.5-5.0 [facility] Comment on above: Performed By: #### C BC, ANEU, GFR, TSHR, MG, BMP, ADIFF #### [place] [address] Sodium [Moles/Vol] 135 mmol/L Low 136-145 [facility] Comment on above: Performed By: #### C BC, ANEU, GFR, TSHR, MG, BMP, ADIFF #### [place] [address] Urea nitrogen [Mass/Vol] 33.0 mg/dL High 8.0-22.0 [facility] Comment on above: Performed By: #### C BC, ANEU, GFR, TSHR, MG, BMP, ADIFF #### [place] [address] CBCon 12-24-2024 Erythrocyte distribution width (RBC) [Ratio] 14.0 % Normal 11.5-15.5 [facility] Comment on above: Performed By: #### C BC, ANEU, GFR, TSHR, MG, BMP, ADIFF #### [place] [address] Hematocrit (Bld) [Volume fraction] 37.0 % Low 40.0-52.0 [facility] Comment on above: Performed By: #### C BC, ANEU, GFR, TSHR, MG, BMP, ADIFF #### [place] [address] Hgb 13.3 G/dL Normal 13.0-17.5 [facility] Comment on above: Performed By: #### C BC, ANEU, GFR, TSHR, MG, BMP, ADIFF #### [place] [address] MCH (RBC) [Entitic mass] 31.3 pg Normal 27.0-33.0 [facility] Comment on above: Performed By: #### C BC, ANEU, GFR, TSHR, MG, BMP, ADIFF #### [place] [address] MCHC 35.8 G/dL Normal 32.0-36.0 [facility] Comment on above: Performed By: #### C BC, ANEU, GFR, TSHR, MG, BMP, ADIFF #### [place] [address] MCV (RBC) [Entitic vol] 87.3 fL Normal 81.0-100.0 [facility] Comment on above: Performed By: #### C BC, ANEU, GFR, TSHR, MG, BMP, ADIFF #### [place] [address] Platelet 195 10 3/mcL Normal 150-450 [facility] Comment on above: Performed By: #### C BC, ANEU, GFR, TSHR, MG, BMP, ADIFF #### [place] [address] Platelet mean volume (Bld) [Entitic vol] 8.4 fL Normal 6.4-10.5 [facility] Comment on above: Performed By: #### C BC, ANEU, GFR, TSHR, MG, BMP, ADIFF #### [place] [address] RBC 4.24 10 6/mcL Low 4.50-6.00 [facility] Comment on above: Performed By: #### C BC, ANEU, GFR, TSHR, MG, BMP, ADIFF #### [place] [address] WBC 9.8 10 3/mcL Normal 4.5-10.8 [facility] Comment on above: Performed By: #### C BC, ANEU, GFR, TSHR, MG, BMP, ADIFF #### [place] [address] LABORATORYOrdered By: SYSTEM SYSTEM on 12-24-2024 Basophils (Bld) [#/Vol] 0.0 103/mcL Normal 0.0 - 0.3 10^3/mcL AH Workflow SS Basophils/100 WBC (Bld) 0.4 % Normal 0.0 - 2.5 % AH Workflow SS Calcium [Mass/Vol] 9.1 mg/dL Normal 8.7 - 10. 4 mg/dL AH ADM SS Chloride [Moles/Vol] 105 mmol/L Normal 98 - 11 0 mEq/L AH ADM SS CO2 [Moles/Vol] 22 mmol/L Normal 22 - 32 mEq/L ADM SS Creatinine [Mass/Vol] 1.80 mg/dL High 0.60 - 1.40 mg/dL ADM SS Comment on above: Interpretive Data: T esting performed on DietBetter analyzer using enzymatic creatinine methodology. Electrolyte Balance 8.0 mEq/L Normal 4.0 - 15 .0 mEq/L ADM SS Eosinophils (Bld) [#/Vol] 0.4 103/mcL Normal 0.0 - 0.7 10^3/mcL AH Workflow SS Eosinophils/100 WBC (Bld) 4.1 % Normal 0.0 - 6.0 % AH Workflow SS Erythrocyte distribution width (RBC) [Ratio] 14.0 % Normal 11.5 - 15.5 % Workflow SS Estimated Glomerular Filtration Rate 37 ml/min/1.73sqm Invalid Interpretation Code ADM SS Comment on above: Interpretive Data: Stages of Chronic Kidney Disease (CKD) Stage Description eGFR(ml/min/1.73 sq.m.) CKD 1 Normal kidney function or >=90 normal kindney function with possible kidney damage (ex. Proteinuria) CKD 2 Kidney damage with mild loss 60-89 of kidney function CKD 3a Mild to moderate loss of kidney 45-59 function CKD 3b Moderate to severe loss of 30-44 of kindey function CKD 4 Severe loss of kidney function 15-29 CKD 5 Kidney failure <15 Note: (go live 2024) the eGFR calculation was updated to the 2020 CKD-EPI creatinine equation without a race factor to calculate the eGFR results. Glucose [Mass/Vol] 94 mg/dL Normal 82 - 115 mg/dL ADM SS Hematocrit (Bld) [Volume fraction] 37.0 % Low 40.0 - 52.0 % Workflow SS Hemoglobin (Bld) [Mass/Vol] 13.3 G/dL Normal 13.0 - 17.5 G/dL AH Workflow SS Lymphocytes (Bld) [#/Vol] 1.9 103/mcL Normal 0.9 - 4.3 10^3/mcL AH Workflow SS Lymphocytes/100 WBC (Bld) 19.6 % Low 20.0 - 40.0 % AH Workflow SS Magnesium [Mass/Vol] 2.1 mg/dL Normal 1.6 - 2 .4 mg/dL AH ADM SS MCH (RBC) [Entitic mass] 31.3 pg Normal 27.0 - 33.0 pg AH Workflow SS MCHC 35.8 G/dL Normal 32.0 - 36.0 G/dL AH Workflow SS MCV (RBC) [Entitic vol] 87.3 fL Normal 81.0 - 100.0 fL AH Workflow SS Monocytes (Bld) [#/Vol] 1.2 103/mcL Normal 0.1 - 1.4 10^3/mcL AH Workflow SS Monocytes/100 WBC (Bld) 11.9 % Normal 2.0 - 13.0 % AH Workflow SS Neutrophils (Bld) [#/Vol] 6.2 103/mcL Normal 2.3 - 8.1 10^3/mcL AH Workflow SS Neutrophils/100 WBC (Bld) 64.0 % Normal 50.0 - 75.0 % AH Workflow SS Platelet mean volume (Bld) [Entitic vol] 8.4 fL Normal 6.4 - 10.5 fL AH Workflow SS Platelets (Bld) [#/Vol] 195 103/mcL Normal 150 - 450 10^3/mcL AH Workflow SS Potassium [Moles/Vol] 4.4 mmol/L Normal 3.5 - 5.0 mEq/L AH ADM SS RBC (Bld) [#/Vol] 4.24 106/mcL Low 4.50 - 6.0 0 10^6/mcL AH Workflow SS Sodium [Moles/Vol] 135 mmol/L Low 136 - 145 mEq/L AH ADM SS Urea nitrogen [Mass/Vol] 33.0 mg/dL High 8.0 - 22.0 mg/dL AH ADM SS Urea nitrogen/Creatinine [Mass ratio] 18.3 ratio Normal 10.0 - 22.0 ratio AH ADM SS WBC (Bld) [#/Vol] 9.8 103/mcL Normal 4.5 - 10.8 10^3/mcL Workflow SS MGon 12-24-2024 Magnesium [Mass/Vol] 2.1 mg/dL Normal 1.6-2.4 [facility] Comment on above: Performed By: #### C BC, ANEU, GFR, TSHR, MG, BMP, ADIFF #### [place] [address] .Auto Diffon 12-23-2024 Basophil, Absolute 0.1 10 3/mcL Normal 0.0-0.3 [facility] Comment on above: Performed By: #### C BC, ANEU, GFR, TSHR, MG, BMP, ADIFF #### [address] [address] Basophils/100 WBC (Bld) 0.7 % Normal 0.0-2.5 [facility] Comment on above: Performed By: #### C BC, ANEU, GFR, TSHR, MG, BMP, ADIFF #### [address] [address] Eosinophil, Absolute 0.4 10 3/mcL Normal 0.0-0.7 [facility] Comment on above: Performed By: #### C BC, ANEU, GFR, TSHR, MG, BMP, ADIFF #### [address] [address] Eosinophils/100 WBC (Bld) 3.5 % Normal 0.0-6.0 [facility] Comment on above: Performed By: #### C BC, ANEU, GFR, TSHR, MG, BMP, ADIFF #### [address] [address] Lymphocyte, Absolute 1.5 10 3/mcL Normal 0.9-4.3 [facility] Comment on above: Performed By: #### C BC, ANEU, GFR, TSHR, MG, BMP, ADIFF #### [address] [address] Lymphocytes/100 WBC (Bld) 14.0 % Low 20.0-40.0 [facility] Comment on above: Performed By: #### C BC, ANEU, GFR, TSHR, MG, BMP, ADIFF #### [address] [address] Monocyte, Absolute 1.0 10 3/mcL Normal 0.1-1.4 [facility] Comment on above: Performed By: #### C BC, ANEU, GFR, TSHR, MG, BMP, ADIFF #### [address] [address] Monocytes/100 WBC (Bld) 9.7 % Normal 2.0-13.0 [facility] Comment on above: Performed By: #### C BC, ANEU, GFR, TSHR, MG, BMP, ADIFF #### [place] [id number] [place] [address] Neutrophils/100 WBC (Bld) 72.1 % Normal 50.0-75.0 [facility] Comment on above: Performed By: #### C BC, ANEU, GFR, TSHR, MG, BMP, ADIFF #### [address] [address] .GFRon 12-23-2024 Estimated Glomerular Filtration Rate 34 ml/min/1.73sqm Normal [facility] Comment on above: Result Comment: Stages of Chronic Kidney Disease (CKD) Stage Description eGFR(ml/min/1.73 sq.m.) CKD 1 Normal kidney function or >=90 normal kindney function with possible kidney damage (ex. Proteinuria) CKD 2 Kidney damage with mild loss 60-89 of kidney function CKD 3a Mild to moderate loss of kidney 45-59 function CKD 3b Moderate to severe loss of 30-44 of kindey function CKD 4 Severe loss of kidney function 15-29 CKD 5 Kidney failure <15 Note: (go live 2024) the eGFR calculation was updated to the 2020 CKD-EPI creatinine equation without a race factor to calculate the eGFR results. Performed By: #### C BC, ANEU, GFR, TSHR, MG, BMP, ADIFF #### [address] [address] .NEUABSon 12-23-2024 Neutrophil, Absolute 7.7 10 3/mcL Normal 2.3-8.1 [facility] Comment on above: Performed By: #### C BC, ANEU, GFR, TSHR, MG, BMP, ADIFF #### [address] [address] BMPon 12-23-2024 BUN/Creatinine Ratio 14.9 ratio Normal 10.0-22.0 [facility] Comment on above: Performed By: #### C BC, ANEU, GFR, TSHR, MG, BMP, ADIFF #### [address] [address] Calcium [Mass/Vol] 9.2 mg/dL Normal 8.7-10.4 [facility] Comment on above: Performed By: #### C BC, ANEU, GFR, TSHR, MG, BMP, ADIFF #### [address] [address] Chloride [Moles/Vol] 104 mmol/L Normal 98-110 [facility] Comment on above: Performed By: #### C BC, ANEU, GFR, TSHR, MG, BMP, ADIFF #### [address] [address] CO2 [Moles/Vol] 24 mmol/L Normal 22-32 [facility] Comment on above: Performed By: #### C BC, ANEU, GFR, TSHR, MG, BMP, ADIFF #### [address] [address] Creatinine [Mass/Vol] 1.95 mg/dL High 0.60-1.40 [facility] Comment on above: Result Comment: Test ing performed on DietBetter analyzer using enzymatic creatinine methodology. Performed By: #### C BC, ANEU, GFR, TSHR, MG, BMP, ADIFF #### [address] [address] Electrolyte Balance 6.0 mEq/L Normal 4.0-15.0 [facility] Comment on above: Performed By: #### C BC, ANEU, GFR, TSHR, MG, BMP, ADIFF #### [address] [address] Glucose [Mass/Vol] 116 mg/dL High 82-115 [facility] Comment on above: Performed By: #### C BC, ANEU, GFR, TSHR, MG, BMP, ADIFF #### [address] [address] Potassium [Moles/Vol] 4.7 mmol/L Normal 3.5-5.0 [facility] Comment on above: Performed By: #### C BC, ANEU, GFR, TSHR, MG, BMP, ADIFF #### [address] [address] Sodium [Moles/Vol] 134 mmol/L Low 136-145 [facility] Comment on above: Performed By: #### C BC, ANEU, GFR, TSHR, MG, BMP, ADIFF #### [place] [address] Urea nitrogen [Mass/Vol] 29.0 mg/dL High 8.0-22.0 [facility] Comment on above: Performed By: #### C BC, ANEU, GFR, TSHR, MG, BMP, ADIFF #### [place] [address] CBCon 12-23-2024 Erythrocyte distribution width (RBC) [Ratio] 14.3 % Normal 11.5-15.5 [facility] Comment on above: Performed By: #### M G, ADIFF, CBC, GFR, BMP, ANEU ####[place] [address] Hematocrit (Bld) [Volume fraction] 38.8 % Low 40.0-52.0 [facility] Comment on above: Performed By: #### M G, ADIFF, CBC, GFR, BMP, ANEU ####[place] [address] Hgb 13.7 G/dL Normal 13.0-17.5 [facility] Comment on above: Performed By: #### M G, ADIFF, CBC, GFR, BMP, ANEU ####[place] [address] MCH (RBC) [Entitic mass] 31.4 pg Normal 27.0-33.0 [facility] Comment on above: Performed By: #### M G, ADIFF, CBC, GFR, BMP, ANEU ####[place] [address] MCHC 35.3 G/dL Normal 32.0-36.0 [facility] Comment on above: Performed By: #### M G, ADIFF, CBC, GFR, BMP, ANEU ####[place] [address] MCV (RBC) [Entitic vol] 88.9 fL Normal 81.0-100.0 [facility] Comment on above: Performed By: #### M G, ADIFF, CBC, GFR, BMP, ANEU ####[place] [address] Platelet 215 10 3/mcL Normal 150-450 [facility] Comment on above: Performed By: #### M G, ADIFF, CBC, GFR, BMP, ANEU ####[place] [address] Platelet mean volume (Bld) [Entitic vol] 8.3 fL Normal 6.4-10.5 [facility] Comment on above: Performed By: #### M G, ADIFF, CBC, GFR, BMP, ANEU ####[place] [address] RBC 4.36 10 6/mcL Low 4.50-6.00 [facility] Comment on above: Performed By: #### M G, ADIFF, CBC, GFR, BMP, ANEU ####[place] [address] WBC 10.7 10 3/mcL Normal 4.5-10.8 [facility] Comment on above: Performed By: #### M G, ADIFF, CBC, GFR, BMP, ANEU ####[place] [address] HHon 12-23-2024 Hematocrit (Bld) [Volume fraction] 39.0 % Low 40.0-52.0 [facility] Comment on above: Performed By: #### H H #### [place] [address] Hgb 13.6 G/dL Normal 13.0-17.5 [facility] Comment on above: Performed By: #### H H #### [place] [address] LABORATORYOrdered By: SYSTEM SYSTEM on 12-23-2024 Hematocrit (Bld) [Volume fraction] 39.0 % Low 40.0 - 52.0 % AH Workflow SS Hemoglobin (Bld) [Mass/Vol] 13.6 G/dL Normal 13.0 - 17.5 G/dL AH Workflow SS Basophils (Bld) [#/Vol] 0.1 103/mcL Normal 0.0 - 0.3 10^3/mcL AH Workflow SS Basophils/100 WBC (Bld) 0.7 % Normal 0.0 - 2.5 % AH Workflow SS Calcium [Mass/Vol] 9.2 mg/dL Normal 8.7 - 10. 4 mg/dL ADM SS Chloride [Moles/Vol] 104 mmol/L Normal 98 - 11 0 mEq/L ADM SS CO2 [Moles/Vol] 24 mmol/L Normal 22 - 32 mEq/L ADM SS Creatinine [Mass/Vol] 1.95 mg/dL High 0.60 - 1.40 mg/dL ADM SS Comment on above: Interpretive Data: T esting performed on DietBetter analyzer using enzymatic creatinine methodology. Electrolyte Balance 6.0 mEq/L Normal 4.0 - 15 .0 mEq/L ADM SS Eosinophils (Bld) [#/Vol] 0.4 103/mcL Normal 0.0 - 0.7 10^3/mcL Workflow SS Eosinophils/100 WBC (Bld) 3.5 % Normal 0.0 - 6.0 % Workflow SS Erythrocyte distribution width (RBC) [Ratio] 14.3 % Normal 11.5 - 15.5 % Workflow SS Estimated Glomerular Filtration Rate 34 ml/min/1.73sqm Invalid Interpretation Code ADM SS Comment on above: Interpretive Data: Stages of Chronic Kidney Disease (CKD) Stage Description eGFR(ml/min/1.73 sq.m.) CKD 1 Normal kidney function or >=90 normal kindney function with possible kidney damage (ex. Proteinuria) CKD 2 Kidney damage with mild loss 60-89 of kidney function CKD 3a Mild to moderate loss of kidney 45-59 function CKD 3b Moderate to severe loss of 30-44 of kindey function CKD 4 Severe loss of kidney function 15-29 CKD 5 Kidney failure <15 Note: (go live 2024) the eGFR calculation was updated to the 2020 CKD-EPI creatinine equation without a race factor to calculate the eGFR results. Glucose [Mass/Vol] 116 mg/dL High 82 - 115 mg/dL ADM SS Hematocrit (Bld) [Volume fraction] 38.8 % Low 40.0 - 52.0 % Workflow SS Hemoglobin (Bld) [Mass/Vol] 13.7 G/dL Normal 13.0 - 17.5 G/dL AH Workflow SS Lymphocytes (Bld) [#/Vol] 1.5 103/mcL Normal 0.9 - 4.3 10^3/mcL AH Workflow SS Lymphocytes/100 WBC (Bld) 14.0 % Low 20.0 - 40.0 % AH Workflow SS Magnesium [Mass/Vol] 1.8 mg/dL Normal 1.6 - 2 .4 mg/dL AH ADM SS MCH (RBC) [Entitic mass] 31.4 pg Normal 27.0 - 33.0 pg AH Workflow SS MCHC 35.3 G/dL Normal 32.0 - 36.0 G/dL AH Workflow SS MCV (RBC) [Entitic vol] 88.9 fL Normal 81.0 - 100.0 fL AH Workflow SS Monocytes (Bld) [#/Vol] 1.0 103/mcL Normal 0.1 - 1.4 10^3/mcL AH Workflow SS Monocytes/100 WBC (Bld) 9.7 % Normal 2.0 - 13.0 % AH Workflow SS Neutrophils (Bld) [#/Vol] 7.7 103/mcL Normal 2.3 - 8.1 10^3/mcL AH Workflow SS Neutrophils/100 WBC (Bld) 72.1 % Normal 50.0 - 75.0 % AH Workflow SS Platelet mean volume (Bld) [Entitic vol] 8.3 fL Normal 6.4 - 10.5 fL AH Workflow SS Platelets (Bld) [#/Vol] 215 103/mcL Normal 150 - 450 10^3/mcL AH Workflow SS Potassium [Moles/Vol] 4.7 mmol/L Normal 3.5 - 5.0 mEq/L AH ADM SS RBC (Bld) [#/Vol] 4.36 106/mcL Low 4.50 - 6.0 0 10^6/mcL AH Workflow SS Sodium [Moles/Vol] 134 mmol/L Low 136 - 145 mEq/L AH ADM SS Urea nitrogen [Mass/Vol] 29.0 mg/dL High 8.0 - 22.0 mg/dL AH ADM SS Urea nitrogen/Creatinine [Mass ratio] 14.9 ratio Normal 10.0 - 22.0 ratio AH ADM SS WBC (Bld) [#/Vol] 10.7 103/mcL Normal 4.5 - 10.8 10^3/mcL AH Workflow SS MGon 12-23-2024 Magnesium [Mass/Vol] 1.8 mg/dL Normal 1.6-2.4 [facility] Comment on above: Performed By: #### C BC, ANEU, GFR, TSHR, MG, BMP, ADIFF #### [facility] [address] [place] [address] XR CHEST 2 VIEWSon XR CHEST 2 VIEWS ORIGINAL EXAMINATION: TWO XRAY VIEWS OF THE CHEST12/23/2024 11:28 am COMPARISON: 12/22/2024 HISTORY: ORDERING SYSTEM PROVIDED HISTORY: Reason for Exam: Evaluate for pneumothorax/lead position post pacer/ICD insertion FINDINGS: Cardiomediastinal contours appear stable. Aortic atherosclerosis is noted. Again seen is a left-sided dual lead cardiac pacer, with lead positions unchanged in the right atrium and right ventricle. No focal consolidation or pulmonary edema. Left basilar atelectasis is likely. No pneumothorax or pleural effusion. Interval resolution of previously seen trace left pleural effusion. No acute osseous abnormalities. Degenerative changes of the spine. IMPRESSION: Stable appearing left-sided dual lead cardiac pacer device. No evidence of pneumothorax. Interval improvement in the left-sided trace pleural effusion when compared to yesterday's exam. I have personally reviewed the images of this examination and agree with the resident's findings and interpretation. Interpreted by: Scout Dawson MD Preliminary Report By: Kristie Escalante Electronically signed By Scout Dawson MD Dictated Date: 12/23/2024 11:38:27 AM Prelim Date: 12/23/2024 11:56:24 AM Sign Date: 12/23/2024 11:56:24 AM Ordering Provider: DIGNA Diez [facility] .Auto Diffon 12-22-2024 Basophil, Absolute 0.1 10 3/mcL Normal 0.0-0.3 [facility] Comment on above: Performed By: #### C BC, ANEU, GFR, TSHR, MG, BMP, ADIFF #### [facility] [address] [place] [address] Basophils/100 WBC (Bld) 1.1 % Normal 0.0-2.5 [facility] Comment on above: Performed By: #### C BC, ANEU, GFR, TSHR, MG, BMP, ADIFF #### [address] [address] Eosinophil, Absolute 0.6 10 3/mcL Normal 0.0-0.7 [facility] Comment on above: Performed By: #### C BC, ANEU, GFR, TSHR, MG, BMP, ADIFF #### [address] [address] Eosinophils/100 WBC (Bld) 5.7 % Normal 0.0-6.0 [facility] Comment on above: Performed By: #### C BC, ANEU, GFR, TSHR, MG, BMP, ADIFF #### [address] [address] Lymphocyte, Absolute 2.7 10 3/mcL Normal 0.9-4.3 [facility] Comment on above: Performed By: #### C BC, ANEU, GFR, TSHR, MG, BMP, ADIFF #### [address] [address] Lymphocytes/100 WBC (Bld) 27.0 % Normal 20.0-40.0 [facility] Comment on above: Performed By: #### C BC, ANEU, GFR, TSHR, MG, BMP, ADIFF #### [address] [address] Monocyte, Absolute 1.2 10 3/mcL Normal 0.1-1.4 [facility] Comment on above: Performed By: #### C BC, ANEU, GFR, TSHR, MG, BMP, ADIFF #### [address] [address] Monocytes/100 WBC (Bld) 11.9 % Normal 2.0-13.0 [facility] Comment on above: Performed By: #### C BC, ANEU, GFR, TSHR, MG, BMP, ADIFF #### [address] [address] Neutrophils/100 WBC (Bld) 54.3 % Normal 50.0-75.0 [facility] Comment on above: Performed By: #### C BC, ANEU, GFR, TSHR, MG, BMP, ADIFF #### [address] [address] .GFRon 12-22-2024 Estimated Glomerular Filtration Rate 36 ml/min/1.73sqm Normal [facility] Comment on above: Result Comment: Stages of Chronic Kidney Disease (CKD) Stage Description eGFR(ml/min/1.73 sq.m.) CKD 1 Normal kidney function or >=90 normal kindney function with possible kidney damage (ex. Proteinuria) CKD 2 Kidney damage with mild loss 60-89 of kidney function CKD 3a Mild to moderate loss of kidney 45-59 function CKD 3b Moderate to severe loss of 30-44 of kindey function CKD 4 Severe loss of kidney function 15-29 CKD 5 Kidney failure <15 Note: (go live 2024) the eGFR calculation was updated to the 2020 CKD-EPI creatinine equation without a race factor to calculate the eGFR results. Performed By: #### C BC, ANEU, GFR, TSHR, MG, BMP, ADIFF #### [place] [id number] .NEUABSon 12-22-2024 Neutrophil, Absolute 5.4 10 3/mcL Normal 2.3-8.1 [facility] Comment on above: Performed By: #### C BC, ANEU, GFR, TSHR, MG, BMP, ADIFF #### [address] [address] BMPon 12-22-2024 BUN/Creatinine Ratio 15.3 ratio Normal 10.0-22.0 [facility] Comment on above: Performed By: #### C BC, ANEU, GFR, TSHR, MG, BMP, ADIFF #### [address] [address] Calcium [Mass/Vol] 9.3 mg/dL Normal 8.7-10.4 [facility] Comment on above: Performed By: #### C BC, ANEU, GFR, TSHR, MG, BMP, ADIFF #### [address] [address] Chloride [Moles/Vol] 105 mmol/L Normal 98-110 [facility] Comment on above: Performed By: #### C BC, ANEU, GFR, TSHR, MG, BMP, ADIFF #### [address] [address] CO2 [Moles/Vol] 28 mmol/L Normal 22-32 [facility] Comment on above: Performed By: #### C BC, ANEU, GFR, TSHR, MG, BMP, ADIFF #### [address] [address] Creatinine [Mass/Vol] 1.83 mg/dL High 0.60-1.40 [facility] Comment on above: Result Comment: Test ing performed on DietBetter analyzer using enzymatic creatinine methodology. Performed By: #### C BC, ANEU, GFR, TSHR, MG, BMP, ADIFF #### [address] [address] Electrolyte Balance 5.0 mEq/L Normal 4.0-15.0 [facility] Comment on above: Performed By: #### C BC, ANEU, GFR, TSHR, MG, BMP, ADIFF #### [address] [address] Glucose [Mass/Vol] 93 mg/dL Normal 82-115 [facility] Comment on above: Performed By: #### C BC, ANEU, GFR, TSHR, MG, BMP, ADIFF #### [address] [address] Potassium [Moles/Vol] 4.6 mmol/L Normal 3.5-5.0 [facility] Comment on above: Performed By: #### C BC, ANEU, GFR, TSHR, MG, BMP, ADIFF #### [address] [address] Sodium [Moles/Vol] 138 mmol/L Normal 136-145 [facility] Comment on above: Performed By: #### C BC, ANEU, GFR, TSHR, MG, BMP, ADIFF #### [address] [address] Urea nitrogen [Mass/Vol] 28.0 mg/dL High 8.0-22.0 [facility] Comment on above: Performed By: #### C BC, ANEU, GFR, TSHR, MG, BMP, ADIFF #### [place] [id number] CBCon 12-22-2024 Erythrocyte distribution width (RBC) [Ratio] 14.3 % Normal 11.5-15.5 [facility] Comment on above: Performed By: #### C BC, ANEU, GFR, TSHR, MG, BMP, ADIFF #### [place] [address] Hematocrit (Bld) [Volume fraction] 41.4 % Normal 40.0-52.0 [facility] Comment on above: Performed By: #### C BC, ANEU, GFR, TSHR, MG, BMP, ADIFF #### [place] [address] Hgb 14.2 G/dL Normal 13.0-17.5 [facility] Comment on above: Performed By: #### C BC, ANEU, GFR, TSHR, MG, BMP, ADIFF #### [place] [address] MCH (RBC) [Entitic mass] 30.4 pg Normal 27.0-33.0 [facility] Comment on above: Performed By: #### C BC, ANEU, GFR, TSHR, MG, BMP, ADIFF #### [place] [address] MCHC 34.2 G/dL Normal 32.0-36.0 [facility] Comment on above: Performed By: #### C BC, ANEU, GFR, TSHR, MG, BMP, ADIFF #### [place] [address] MCV (RBC) [Entitic vol] 88.9 fL Normal 81.0-100.0 [facility] Comment on above: Performed By: #### C BC, ANEU, GFR, TSHR, MG, BMP, ADIFF #### [place] [address] Platelet 236 10 3/mcL Normal 150-450 [facility] Comment on above: Performed By: #### C BC, ANEU, GFR, TSHR, MG, BMP, ADIFF #### [address], [place] [address] Platelet mean volume (Bld) [Entitic vol] 8.2 fL Normal 6.4-10.5 [facility] Comment on above: Performed By: #### C BC, ANEU, GFR, TSHR, MG, BMP, ADIFF #### [facility] [address] [place] [address] RBC 4.66 10 6/mcL Normal 4.50-6.00 [facility] Comment on above: Performed By: #### C BC, ANEU, GFR, TSHR, MG, BMP, ADIFF #### [place] [id number] [place] [address] WBC 10.0 10 3/mcL Normal 4.5-10.8 [facility] Comment on above: Performed By: #### C BC, ANEU, GFR, TSHR, MG, BMP, ADIFF #### [place] [phone] [place], [place] [id number] LABORATORYOrdered By: Gaviota Yusuf on 12-22-2024 Blood Glucose Testing Reason Symptoms of hypoglycemia (12/22/24 10:08 AM) [facility] Work Phone: Glucose [Mass/Vol] 103 mg/dL Normal 82 - 115 mg/dL [facility] Work Phone: LABORATORYOrdered By: SYSTEM SYSTEM on 12-22-2024 PT Coag (PPP) [Time] 12.2 s Normal 9.0 - 1 4.4 seconds JULIA SCHMIDT Comment on above: Interpretive Data: E ffective 05/05/08, Protime results may be affected by some antibiotics (i.e. Ciprofloxacin, Azithromycin, Bactrim) which may potentiate the action of oral anticoagulants, with further increases in Protime/INR. PT International Ratio 1.1 ratio Invalid Interpretation Code JULIA SCHMIDT Comment on above: Interpretive Data: Shelbi clark [employer] [place] [employer] (CHEST, 1992, [id number]) recommended therapeutic range for oral anticoagulant therapy is: LOW RISK: Prophylaxis of venous thrombosis INR: 2.0-3.0 Treatment of pulmonary embolism 2.0-3.0 Prevention of systemic embolism 2.0-3.0 HIGH RISK: Mechanical prosthetic valves 2.5-3.5 Basophils (Bld) [#/Vol] 0.1 103/mcL Normal 0.0 - 0.3 10^3/mcL Workflow SS Basophils/100 WBC (Bld) 1.1 % Normal 0.0 - 2.5 % AH Workflow SS Calcium [Mass/Vol] 9.3 mg/dL Normal 8.7 - 10. 4 mg/dL ADM SS Chloride [Moles/Vol] 105 mmol/L Normal 98 - 11 0 mEq/L ADM SS CO2 [Moles/Vol] 28 mmol/L Normal 22 - 32 mEq/L ADM SS Creatinine [Mass/Vol] 1.83 mg/dL High 0.60 - 1.40 mg/dL ADM SS Comment on above: Interpretive Data: T esting performed on [employer] analyzer using enzymatic creatinine methodology. Electrolyte Balance 5.0 mEq/L Normal 4.0 - 15 .0 mEq/L ADM SS Eosinophils (Bld) [#/Vol] 0.6 103/mcL Normal 0.0 - 0.7 10^3/mcL Workflow SS Eosinophils/100 WBC (Bld) 5.7 % Normal 0.0 - 6.0 % Workflow SS Erythrocyte distribution width (RBC) [Ratio] 14.3 % Normal 11.5 - 15.5 % Workflow SS Estimated Glomerular Filtration Rate 36 ml/min/1.73sqm Invalid Interpretation Code ADM SS Comment on above: Interpretive Data: Stages of Chronic Kidney Disease (CKD) Stage Description eGFR(ml/min/1.73 sq.m.) CKD 1 Normal kidney function or >=90 normal kindney function with possible kidney damage (ex. Proteinuria) CKD 2 Kidney damage with mild loss 60-89 of kidney function CKD 3a Mild to moderate loss of kidney 45-59 function CKD 3b Moderate to severe loss of 30-44 of kindey function CKD 4 Severe loss of kidney function 15-29 CKD 5 Kidney failure <15 Note: (go live 2024) the eGFR calculation was updated to the 2020 CKD-EPI creatinine equation without a race factor to calculate the eGFR results. Glucose [Mass/Vol] 93 mg/dL Normal 82 - 115 mg/dL ADM SS Lymphocytes (Bld) [#/Vol] 2.7 103/mcL Normal 0.9 - 4.3 10^3/mcL AH Workflow SS Lymphocytes/100 WBC (Bld) 27.0 % Normal 20.0 - 40.0 % AH Workflow SS Magnesium [Mass/Vol] 2.0 mg/dL Normal 1.6 - 2 .4 mg/dL AH ADM SS MCH (RBC) [Entitic mass] 30.4 pg Normal 27.0 - 33.0 pg AH Workflow SS MCHC 34.2 G/dL Normal 32.0 - 36.0 G/dL AH Workflow SS MCV (RBC) [Entitic vol] 88.9 fL Normal 81.0 - 100.0 fL AH Workflow SS Monocytes (Bld) [#/Vol] 1.2 103/mcL Normal 0.1 - 1.4 10^3/mcL AH Workflow SS Monocytes/100 WBC (Bld) 11.9 % Normal 2.0 - 13.0 % AH Workflow SS Neutrophils (Bld) [#/Vol] 5.4 103/mcL Normal 2.3 - 8.1 10^3/mcL AH Workflow SS Neutrophils/100 WBC (Bld) 54.3 % Normal 50.0 - 75.0 % AH Workflow SS Platelet mean volume (Bld) [Entitic vol] 8.2 fL Normal 6.4 - 10.5 fL AH Workflow SS Platelets (Bld) [#/Vol] 236 103/mcL Normal 150 - 450 10^3/mcL AH Workflow SS Potassium [Moles/Vol] 4.6 mmol/L Normal 3.5 - 5.0 mEq/L AH ADM SS RBC (Bld) [#/Vol] 4.66 106/mcL Normal 4.50 - 6.0 0 10^6/mcL AH Workflow SS Sodium [Moles/Vol] 138 mmol/L Normal 136 - 145 mEq/L ADM SS Urea nitrogen [Mass/Vol] 28.0 mg/dL High 8.0 - 22.0 mg/dL ADM SS Urea nitrogen/Creatinine [Mass ratio] 15.3 ratio Normal 10.0 - 22.0 ratio AH ADM SS WBC (Bld) [#/Vol] 10.0 103/mcL Normal 4.5 - 10.8 10^3/mcL Workflow SS MGon 12-22-2024 Magnesium [Mass/Vol] 2.0 mg/dL Normal 1.6-2.4 [facility] Comment on above: Performed By: #### C BC, ANEU, GFR, TSHR, MG, BMP, ADIFF #### [facility] [address] [place] [id number] PROon 12-22-2024 INR Coag (PPP) [Relative time] 1.1 {INR} Normal [facility] Comment on above: Result Comment: The [place] (CHEST, 1992, 102:312S-25S) recommended therapeutic range for oral anticoagulant therapy is: LOW RISK: Prophylaxis of venous thrombosis INR: 2.0-3.0 Treatment of pulmonary embolism 2.0-3.0 Prevention of systemic embolism 2.0-3.0 HIGH RISK: Mechanical prosthetic valves 2.5-3.5 Performed By: #### P RO ####[facility] [place] [address] PT Coag (PPP) [Time] 12.2 s Normal 9.0-14.4 [facility] Comment on above: Result Comment: Effe ctive 05/05/08, Protime results may be affected by some antibiotics (i.e. Ciprofloxacin, Azithromycin, Bactrim) which may potentiate the action of oral anticoagulants, with further increases in Protime/INR. Performed By: #### P RO ####[facility] [place] [address] XR CHEST 1 VIEWon 12-22-2024 XR CHEST 1 VIEW ORIGINAL EXAMINATION: ONE XRAY VIEW OF THE CHEST12/22/2024 5:40 pm COMPARISON: None. HISTORY: ORDERING SYSTEM PROVIDED HISTORY: Reason for Exam: Evaluate for pneumothorax/lead position post pacer/ICD insertion FINDINGS: Left-sided pacemaker with leads projecting over the expected area of the right atrium and right ventricle. The cardiomediastinal silhouette is unremarkable. No cardiomegaly. There is no pulmonary vascular congestion. Minimal left basilar subsegmental atelectasis. Suspect minimal trace left pleural effusion. No pneumothorax. IMPRESSION: Suspect minimal trace left pleural effusion. Minimal overlying left basilar subsegmental atelectasis. Left-sided pacemaker with leads projecting over the right atrium and right ventricle. No pneumothorax. I have personally reviewed the images of this examination and agree with the resident's findings and interpretation. Interpreted by: Nikhil Field Preliminary Report By: Javan Olson Electronically signed By Nikhil Field Dictated Date: 12/22/2024 7:06:16 PM Prelim Date: 12/22/2024 7:08:18 PM Sign Date: 12/22/2024 7:11:13 PM Ordering Provider: VENITA Diez [facility] .Auto Diffon 12-21-2024 Basophil, Absolute 0.1 10 3/mcL Normal 0.0-0.3 [facility] Comment on above: Performed By: #### C BC, ANEU, GFR, TSHR, MG, BMP, ADIFF #### [address] [address] Basophils/100 WBC (Bld) 0.8 % Normal 0.0-2.5 [facility] Comment on above: Performed By: #### C BC, ANEU, GFR, TSHR, MG, BMP, ADIFF #### [address] [address] Eosinophil, Absolute 0.5 10 3/mcL Normal 0.0-0.7 [facility] Comment on above: Performed By: #### C BC, ANEU, GFR, TSHR, MG, BMP, ADIFF #### [address] [address] Eosinophils/100 WBC (Bld) 5.0 % Normal 0.0-6.0 [facility] Comment on above: Performed By: #### C BC, ANEU, GFR, TSHR, MG, BMP, ADIFF #### [address] [address] Lymphocyte, Absolute 2.2 10 3/mcL Normal 0.9-4.3 [facility] Comment on above: Performed By: #### C BC, ANEU, GFR, TSHR, MG, BMP, ADIFF #### [address] [address] Lymphocytes/100 WBC (Bld) 22.8 % Normal 20.0-40.0 [facility] Comment on above: Performed By: #### C BC, ANEU, GFR, TSHR, MG, BMP, ADIFF #### [address] [address] Monocyte, Absolute 1.0 10 3/mcL Normal 0.1-1.4 [facility] Comment on above: Performed By: #### C BC, ANEU, GFR, TSHR, MG, BMP, ADIFF #### [address] [address] Monocytes/100 WBC (Bld) 10.5 % Normal 2.0-13.0 [facility] Comment on above: Performed By: #### C BC, ANEU, GFR, TSHR, MG, BMP, ADIFF #### [address] [address] Neutrophils/100 WBC (Bld) 60.9 % Normal 50.0-75.0 [facility] Comment on above: Performed By: #### C BC, ANEU, GFR, TSHR, MG, BMP, ADIFF #### [address] [address] .GFRon 12-21-2024 Estimated Glomerular Filtration Rate 39 ml/min/1.73sqm Normal [facility] Comment on above: Result Comment: Stages of Chronic Kidney Disease (CKD) Stage Description eGFR(ml/min/1.73 sq.m.) CKD 1 Normal kidney function or >=90 normal kindney function with possible kidney damage (ex. Proteinuria) CKD 2 Kidney damage with mild loss 60-89 of kidney function CKD 3a Mild to moderate loss of kidney 45-59 function CKD 3b Moderate to severe loss of 30-44 of kindey function CKD 4 Severe loss of kidney function 15-29 CKD 5 Kidney failure <15 Note: (go live 2024) the eGFR calculation was updated to the 2020 CKD-EPI creatinine equation without a race factor to calculate the eGFR results. Performed By: #### C BC, ANEU, GFR, TSHR, MG, BMP, ADIFF #### [address] [address] .NEUABSon 12-21-2024 Neutrophil, Absolute 5.9 10 3/mcL Normal 2.3-8.1 [facility] Comment on above: Performed By: #### C BC, ANEU, GFR, TSHR, MG, BMP, ADIFF #### [place] [address] BMPon 12-21-2024 BUN/Creatinine Ratio 17.8 ratio Normal 10.0-22.0 [facility] Comment on above: Performed By: #### C BC, ANEU, GFR, TSHR, MG, BMP, ADIFF #### [address] [address] Calcium [Mass/Vol] 8.9 mg/dL Normal 8.7-10.4 [facility] Comment on above: Performed By: #### C BC, ANEU, GFR, TSHR, MG, BMP, ADIFF #### [address] [address] Chloride [Moles/Vol] 107 mmol/L Normal 98-110 [facility] Comment on above: Performed By: #### C BC, ANEU, GFR, TSHR, MG, BMP, ADIFF #### [address] [address] CO2 [Moles/Vol] 25 mmol/L Normal 22-32 [facility] Comment on above: Performed By: #### C BC, ANEU, GFR, TSHR, MG, BMP, ADIFF #### [address] [address] Creatinine [Mass/Vol] 1.74 mg/dL High 0.60-1.40 [facility] Comment on above: Result Comment: Test ing performed on DietBetter analyzer using enzymatic creatinine methodology. Performed By: #### C BC, ANEU, GFR, TSHR, MG, BMP, ADIFF #### [address] [address] Electrolyte Balance 5.0 mEq/L Normal 4.0-15.0 [facility] Comment on above: Performed By: #### C BC, ANEU, GFR, TSHR, MG, BMP, ADIFF #### [address] [address] Glucose [Mass/Vol] 129 mg/dL High 82-115 [facility] Comment on above: Performed By: #### C BC, ANEU, GFR, TSHR, MG, BMP, ADIFF #### [address] [address] Potassium [Moles/Vol] 4.3 mmol/L Normal 3.5-5.0 [facility] Comment on above: Performed By: #### C BC, ANEU, GFR, TSHR, MG, BMP, ADIFF #### [place] [address] Sodium [Moles/Vol] 137 mmol/L Normal 136-145 [facility] Comment on above: Performed By: #### C BC, ANEU, GFR, TSHR, MG, BMP, ADIFF #### [place] [address] Urea nitrogen [Mass/Vol] 31.0 mg/dL High 8.0-22.0 [facility] Comment on above: Performed By: #### C BC, ANEU, GFR, TSHR, MG, BMP, ADIFF #### [place] [address] CBCon 12-21-2024 Erythrocyte distribution width (RBC) [Ratio] 14.8 % Normal 11.5-15.5 [facility] Comment on above: Performed By: #### C BC, ANEU, GFR, TSHR, MG, BMP, ADIFF #### [place] [address] Hematocrit (Bld) [Volume fraction] 39.3 % Low 40.0-52.0 [facility] Comment on above: Performed By: #### C BC, ANEU, GFR, TSHR, MG, BMP, ADIFF #### [place] [address] Hgb 13.7 G/dL Normal 13.0-17.5 [facility] Comment on above: Performed By: #### C BC, ANEU, GFR, TSHR, MG, BMP, ADIFF #### [place] [address] MCH (RBC) [Entitic mass] 30.9 pg Normal 27.0-33.0 [facility] Comment on above: Performed By: #### C BC, ANEU, GFR, TSHR, MG, BMP, ADIFF #### [place] [address] MCHC 34.9 G/dL Normal 32.0-36.0 [facility] Comment on above: Performed By: #### C BC, ANEU, GFR, TSHR, MG, BMP, ADIFF #### [place] [id number] MCV (RBC) [Entitic vol] 88.5 fL Normal 81.0-100.0 [facility] Comment on above: Performed By: #### C BC, ANEU, GFR, TSHR, MG, BMP, ADIFF #### [place] [address] Platelet 201 10 3/mcL Normal 150-450 [facility] Comment on above: Performed By: #### C BC, ANEU, GFR, TSHR, MG, BMP, ADIFF #### [place] [address] Platelet mean volume (Bld) [Entitic vol] 8.6 fL Normal 6.4-10.5 [facility] Comment on above: Performed By: #### C BC, ANEU, GFR, TSHR, MG, BMP, ADIFF #### [place] [address] RBC 4.44 10 6/mcL Low 4.50-6.00 [facility] Comment on above: Performed By: #### C BC, ANEU, GFR, TSHR, MG, BMP, ADIFF #### [place] [id number] WBC 9.7 10 3/mcL Normal 4.5-10.8 [facility] Comment on above: Performed By: #### C BC, ANEU, GFR, TSHR, MG, BMP, ADIFF #### [place] [address] LABORATORYOrdered By: SYSTEM SYSTEM on 12-21-2024 TSH Qn 3.744 mIU/mL Normal 0.550 - 4.780 mIU/mL AH ADM SS MGon 12-21-2024 Magnesium [Mass/Vol] 1.9 mg/dL Normal 1.6-2.4 [facility] Comment on above: Performed By: #### C BC, ANEU, GFR, TSHR, MG, BMP, ADIFF #### [place] [id number] [place] [address] TSHRon 12-21-2024 TSH 3.744 mIU/mL Normal 0.550-4.780 [facility] Comment on above: Performed By: #### C BC, ANEU, GFR, TSHR, MG, BMP, ADIFF #### [address] [address] 12 Lead EKGon 12-20-2024 12 Lead EKG [facility] [address] [place] [address] 12 Lead EKG 12/20/24 1136 MR#: [id number] Acct: [id number] Name: MAGUI TORRES Rep #: [id number] : 1940 84 From: Javan Parks MD Attending Dr: Status: DEP ER Ordering Dr: Anya Basilio DO Date: 12/20/24 Location: ED Sex: M C Admitted: Test Reason : low hr Blood Pressure : */* mmHG Vent. Rate : 50 BPM Atrial Rate : 50 BPM P-R Int : 182 ms QRS Dur : 146 ms QT Int : 500 ms P-R-T Axes : 71 16 38 degrees QTcB Int : 455 ms Sinus bradycardia Right bundle branch block Cannot rule out Inferior infarct (cited on or before 17-Feb-2023) Abnormal ECG Confirmed by Javan Parks ([id number]), greeting card editor JOURDAN CHEN ([id number]) on 12/22/2024 7:02:59 AM Referred By: Confirmed By: Javan Parks 12/22/24 0703 Date Javan Parks MD CC: Dr. Anya Basilio DO; Dr. Brayden Balderrama MD Signed Normal [facility] BUN/creatinine ratioOrdered By: Anya Basilio on 12-20-2024 Urea nitrogen/Creatinine [Mass ratio] 16.8 mg/mg 10-20 [facility] Basic Metabolic Profile (BMP )on 12-20-2024 Anion gap [Moles/Vol] 15 mmol/L Normal 5-15 [facility] Comment on above: Performed By: #### L 501.9520, L506.0400, L501.5200, L501.05096, L500.2500 #### [facility] Laboratory [address] [place], [address] BUN/CRE 16.8 RATIO Normal 10-20 [facility] Comment on above: Performed By: #### L 501.9520, L506.0400, L501.5200, L501.79572, L500.2500 #### [facility] [address] [place], [address] Calcium [Mass/Vol] 9.4 mg/dL Normal 7.6-11.0 [facility] Comment on above: Performed By: #### L 501.9520, L506.0400, L501.5200, L501.50333, L500.2500 #### [facility] [address] [place], [address] Chloride [Moles/Vol] 104 mmol/L Normal 96-108 [facility] Comment on above: Performed By: #### L 501.9520, L506.0400, L501.5200, L501.45942, L500.2500 #### [facility] [address] [place], [address] CO2 [Moles/Vol] 17.6 mmol/L Low 22.0-29.0 [facility] Comment on above: Performed By: #### L 501.9520, L506.0400, L501.5200, L501.69341, L500.2500 #### [facility] [address] [place], [address] Creatinine [Mass/Vol] 1.82 mg/dL High 0.70-1.20 [facility] Comment on above: Performed By: #### L 501.9520, L506.0400, L501.5200, L501.82233, L500.2500 #### [facility] [address] [place], [address] ECRCL 32.31 ml/min Normal [facility] Comment on above: Performed By: #### L 501.9520, L506.0400, L501.5200, L501.80177, L500.2500 #### [facility] [address] [place], [address] GFR/1.73 sq M.predicted among non-blacks MDRD (S/P/Bld) [Vol rate/Area] 37 mL/min/{1.73_m2} Low >60 [facility] Comment on above: Result Comment: mL/m in/1.73m2 CKD-EPI Creatinine Equation (2020) Performed By: #### L 501.9520, L506.0400, L501.5200, L501.42336, L500.2500 #### [facility] [address] [place], [address] Glucose [Mass/Vol] 139 mg/dL High 70-99 [facility] Comment on above: Performed By: #### L 501.9520, L506.0400, L501.5200, L501.03278, L500.2500 #### [facility] Laboratory [address] [place], [address] Potassium [Moles/Vol] 3.8 mmol/L Normal 3.3-5.1 [facility] Comment on above: Performed By: #### L 501.9520, L506.0400, L501.5200, L501.08309, L500.2500 #### [facility] [address] [place], [address] Sodium [Moles/Vol] 137 mmol/L Normal 133-145 [facility] Comment on above: Performed By: #### L 501.9520, L506.0400, L501.5200, L501.94853, L500.2500 #### [facility] [address] [place], [address] Urea nitrogen [Mass/Vol] 31 mg/dL High 4-19 [facility] Comment on above: Performed By: #### L 501.9520, L506.0400, L501.5200, L501.92298, L500.2500 #### [facility] [address] [place], [address] Bilirubin Test strip Ql (U)O rdered By: Anya Basilio on 12-20-2024 Bilirubin Ql (U) Negative Negative [facility] CBC-Complete Blood Cnt No Di ffon 12-20-2024 Erythrocyte distribution width (RBC) [Ratio] 13.7 % Normal 11.6-14.6 [facility] Comment on above: Performed By: #### L 501.9520, L506.0400, L501.5200, L501.93961, L500.2500 #### [facility] Laboratory [address] [place], [address] Hematocrit (Bld) [Volume fraction] 41.5 % Normal 40-54 [facility] Comment on above: Performed By: #### L 501.9520, L506.0400, L501.5200, L501.86394, L500.2500 #### [facility] Laboratory [address] [place], [address] Hemoglobin (Bld) [Mass/Vol] 14.5 g/dL Normal 13.0-16.5 [facility] Comment on above: Performed By: #### L 501.9520, L506.0400, L501.5200, L501.47716, L500.2500 #### [facility] Laboratory [address] [place], [address] MCH (RBC) [Entitic mass] 30.4 pg Normal 27.0-32.0 [facility] Comment on above: Performed By: #### L 501.9520, L506.0400, L501.5200, L501.11450, L500.2500 #### [facility] Laboratory [address] [place], [address] MCHC (RBC) [Mass/Vol] 34.9 g/dL Normal 32-36 [facility] Comment on above: Performed By: #### L 501.9520, L506.0400, L501.5200, L501.55378, L500.2500 #### [facility] Laboratory [address] [place], [address] MCV (RBC) [Entitic vol] 87.0 fL Normal 80-94 [facility] Comment on above: Performed By: #### L 501.9520, L506.0400, L501.5200, L501.88951, L500.2500 #### [facility] [address] [place], [address] Platelet mean volume (Bld) [Entitic vol] 10.4 fL Normal 6.2-12.0 [facility] Comment on above: Performed By: #### L 501.9520, L506.0400, L501.5200, L501.71072, L500.2500 #### [facility] [address] [place], [address] Platelets (Bld) [#/Vol] 279 10*3/uL Normal 150-450 [facility] Comment on above: Performed By: #### L 501.9520, L506.0400, L501.5200, L501.92209, L500.2500 #### [facility] [address] [place], [address] RBC (Bld) [#/Vol] 4.77 10*6/uL Normal 4.6-6.[address] [facility] Comment on above: Performed By: #### L 501.9520, L506.0400, L501.5200, L501.93675, L500.2500 #### [facility] [address] [place], [address] RDW SD 43.7 fl Normal 35.1-43.9 [facility] Comment on above: Performed By: #### L 501.9520, L506.0400, L501.5200, L501.11588, L500.2500 #### [facility] [address] [place], [address] WBC (Bld) [#/Vol] 12.3 10*3/uL High 4.4-11.[address] [facility] Comment on above: Performed By: #### L 501.9520, L506.0400, L501.5200, L501.76603, L500.2500 #### [facility] [address] [place], [address] Carbon dioxide measurementOr dered By: Anya Basilio on 12-20-2024 CO2 [Moles/Vol] 17.6 mmol/L Low 22.0-29.0 [facility] Chest PA and Lateralon 12-20 Chest PA and Lateral [facility] Imaging Services [address] [place] [address] Chest PA and Lateral MR#: [id number] Acct: [id number] Name: MAGUI TORRES Rep #: [id number] : 1940 M 84 From: Brayden Chung MD PCP: Dr. Brayden Balderrama MD Status: [facility] ER Study: Chest PA and Lateral Date of Exam: 12/20/24 Exam# [id number] Ordering Dr: Anya Basilio DO PROCEDURE: CHEST PA AND LATERAL REASON FOR EXAM: Syncope TECHNIQUE: Frontal and lateral views of the chest. COMPARISON: 10/06/2024 FINDINGS: Loop recorder The heart size is normal. There are atherosclerotic calcifications of the thoracic aorta. The lungs are clear. The bones are unremarkable. RAD/Chest PA and Lateral IMPRESSION: No radiographic evidence of acute cardiopulmonary disease Reading Location: [facility] CC: Dr. Anya Basilio DO; Dr. Brayden Balderrama MD Glassblower: Signed Normal [facility] Chloride measurementOrdered By: nAya Basilio on 12-20-2024 Chloride [Moles/Vol] 104 mmol/L 96-108 [facility] Emergency Department Summary on 12-20-2024 Emergency Department Summary [facility] Medical Records Department [address] [place] [address] Emergency Department Summary 12/20/24 MR#: [id number] Acct: [id number] Name: MAGUI TORRES Rep #: [id number] : 1940 84 From: Anya Basilio DO PCP: Dr. Brayden Balderrama MD Status:DEP ER Location: ED HPI History of Present Illness Chief Complaint: Syncope Narrative Narrative: Patient is an 84-year-old male with history of kidney cancer, nephrectomy in 2021. History of hypertension hyperlipidemia frequent PVCs, currently had a loop recorder placed secondary to concern that the patient might need a pacemaker. Patient denies any fever or chills. Patient states while at breakfast today, he started to feel dizzy, weak, and slightly nauseous. He denies any specific chest pain. Pay states he just feels weak and tired. Had a syncopal episode. Patient did not fall. The was able to lean the patient onto the trivedi. Patient states he does PFSH PFSH Medical History Acute hemorrhoid Arthritis Atrial fibrillation Back pain Cancer Cardiology follow-up encounter Chest pain Chewing tobacco nicotine dependence Dietary restriction Essential (primary) hypertension Former smoker GI bleed Heartburn History of diverticulitis History of echocardiogram History of pain when walking History of renal disease History of stress test Hyperlipidemia Hypertension Hypothyroidism Injury of head and neck Kidney disease Kidney disease Kidney stones Loss of hearing Paroxysmal atrial fibrillation Prostate disease Thyroid disease TIA (transient ischemic attack) Wears glasses Home Medications ???Medication ???Instructions ???Recorded ???Last Taken ???Type multivitamin 1 tab PO DAILY 07/26/18 Unknown Hi story saw palmetto 1,000 mg capsule 1,000 mg PO DAILY 07/26/18 Unknown History cholecalciferol (vitamin D3) 25 50 mcg PO DAILY 04/25/22 Unknown H istory mcg/drop (1,000 unit/drop) oral drops levothyroxine 50 mcg tablet 50 mcg PO DAILY 04/25/22 05/10/22 04:30 History magnesium 200 mg tablet 200 mg PO QWEEK 05/17/23 Unknown H istory aspirin 81 mg capsule 81 mg PO DAILY 12/20/24 Unknown Hi story hydrochlorothiazide 12.5 mg capsule 12.5 mg PO DAILY 12/20/24 Unkno wn History metoprolol succinate 25 mg 12.5 mg PO DAILY 12/20/24 Unknown History tablet,extended release 24 hr mexiletine 200 mg capsule 200 mg PO Q8H 12/20/24 Unknown His tory Allergy/AdvReac Type Severity Reaction Status Date / Time animal dander Allergy unknown Verified 12/20/24 11:25 mold Allergy unknown Verified 12/20/24 11:25 pollen extracts Allergy unknown Verified 12/20/24 11:25 Milk Containing Products AdvReac Mild Abd Verified 12/20/24 15:51 (Dairy) cramps/diarrhea amoxicillin AdvReac Nausea/vomi Verified 12/20/24 11:25 ting lisinopril AdvReac Headaches Verified 12/20/24 11:25 Poultry AdvReac Abd Verified 12/20/24 15:51 cramps/diarrhea Family History Father Myocardial infarction from MS age 56 Mother Heart disease CHF Grandfather Myocardial infarction from [place] age 53 Surgical History History of appendectomy History of cholecystectomy History of nasal septoplasty History of nephrectomy Hx laparoscopic cholecystectomy Hx of colonoscopy Hx of hand surgery Social History Smoking Status: Current some day smoker tobacco type: smokeless tobacco Smokeless tobacco user: chewing tobacco how long ago did patient quit smokin alcohol intake: never substance use type: does not use caffeine: Yes Type: coffee Number of servings: 2, tea Number of servings: 2 and other ROS ROS ED ROS Narrative Constitutional: Negative for fever, chills, weight loss. Positive for weakness Eyes: Negative for vision loss, vision change, double vision ENT: Negative for any sore throat, ear pain, congestion Cardiovascular: Negative for any chest pain, tightness, palpitations Respiratory: Negative for any cough, sputum production, hemoptysis, dyspnea, dyspnea on exertion, orthopnea Gastrointestinal: Negative for any abdominal pain, vomiting, diarrhea, constipation, blood in stool, blood in vomit. Positive for nausea : Negative for any urinary frequency, dysuria, retention, blood in urine Muscle skeletal: Negative for any neck pain, back pain Neurological: Negative for any headache. Positive syncope, dizziness Skin: Negative for any rashes, itching, abrasions, lacerations Psychiatric: Negative for any depression, anxiety, stress, suicidal ideation, homicidal ideation Hematologic: Negative for any excessive bruising, easy bleeding E (more content not included)... Normal [facility] Epithelial cells.squamous LM Ql (Urine sed)Ordered By: Anya Basilio on 12-20-2024 Epithelial cells.squamous LM.HPF (Urine sed) [#/Area] 0 /[HPF] 0-5 [facility] Erythrocyte distribution wid th ratioOrdered By: Anya Basilio on 12-20-2024 Erythrocyte distribution width (RBC) [Ratio] 13.7 % 11.6-14.6 [facility] Erythrocyte distribution wid th standard deviationOrdered By: Anya Basilio on 12-20-2024 Erythrocyte distribution width (RBC) [Entitic vol] 43.7 fL 35.1-43.9 [facility] Erythrocyte distribution width (RBC) [Ratio] 43.7 fl 35.1-43.9 [facility] Estimation of creatinine humberto aranceOrdered By: Anya Basilio on 12-20-2024 Estimated Creatinine Clearance Calc 32.31 ml/min [facility] GFR/1.73 sq M.predicted anjel g non-blacks MDRD (S/P/Bld) [Vol rate/Area]Ordered By: Anya Basilio on 12-20-2024 Estimated GFR (MDRD) Non-Af Amer 37 Low >60 [facility] Comment on above: mL/min/1.73m2 CKD-EP I Creatinine Equation (2020) Glomerular filtration rate ( GFR) estimation/1.73 sq m using serum, plasma, or whole bOrdered By: Anya Basilio on 12-20-2024 GFR/1.73 sq M.predicted among non-blacks MDRD (S/P/Bld) [Vol rate/Area] 37 mL/min/{1.73_m2} Low >60 [facility] Comment on above: mL/min/1.73m2 CKD-EP I Creatinine Equation (2020) Glucose Ql (U)Ordered By: Jose Basilio on 12-20-2024 Urine Glucose (UA) Normal mg/dl Normal [facility] Hematocrit Auto (Bld) [Volum e fraction]Ordered By: Anya Basilio on 12-20-2024 Hematocrit (Bld) [Volume fraction] 41.5 % 40-54 [facility] Hemoglobin measurementOrdere d By: Anya Basilio on 12-20-2024 Hemoglobin (Bld) [Mass/Vol] 14.5 g/dL 13.0-16.5 [facility] International normalized rat io (INR) calculationOrdered By: Anya Basilio on 12-20-2024 INR Coag (Bld) [Relative time] 1.0 {INR} [facility] Ketones Test strip Ql (U)Ord ered By: Anya Basilio on 12-20-2024 Ketones Ql (U) Negative Negative [facility] L499.0042on 12-20-2024 Trop T Delta 0 Normal [facility] Comment on above: Result Comment: If c linical suspicion for ACS is high, suggest getting a third troponin. Otherwise, stress test or CTCA. Performed By: #### L [id number], L506.0400, L501.5200, L501.57606, L500.2500 #### [facility] Laboratory [address] [place], [place], [id number] Trop T High Sen 19 ng/L Normal <=22 [facility] Comment on above: Performed By: #### L [id number], L506.0400, L501.5200, L501.22446, L500.2500 #### [facility] [address] [place], [address] L499.0043on 12-20-2024 Trop T Delta 1 Normal [facility] Comment on above: Result Comment: Down stream testing and, if negative, consider other etiologies for elevated troponin. Performed By: #### L 499.0043 #### [facility] [address] [place], [address] Trop T High Sen 18 ng/L Normal <=22 [facility] Comment on above: Performed By: #### L 499.0043 #### [facility] [address] [place], [address] L501.4021on 12-20-2024 Trop T High Sen 19 ng/L Normal <=22 [facility] Comment on above: Performed By: #### L [id number], L506.0400, L501.5200, L501.54123, L500.2500 #### [facility] [address] [place], [address] MCV (mean corpuscular volume ) determinationOrdered By: Anya Basilio on 12-20-2024 MCV (RBC) [Entitic vol] 87.0 fL 80-94 [facility] Mean corpuscular hemoglobin (MCH) determinationOrdered By: Anya Basilio on 12-20-2024 MCH (RBC) [Entitic mass] 30.4 pg 27.0-32.0 [facility] Mean corpuscular hemoglobin concentration (MCHC) determinationOrdered By: Anya Basilio on 12-20-2024 MCHC (RBC) [Mass/Vol] 34.9 g/dL 32-36 [facility] Mean platelet volume determi nationOrdered By: Anya Basilio on 12-20-2024 Platelet mean volume (Bld) [Entitic vol] 10.4 fL 6.2-12.0 [facility] Microscopic analysis of urin e for red blood cells (RBC)Ordered By: Anya Basilio on 12-20-2024 Microscopic analysis of urine for red blood cells (RBC) 0 SEEN /hpf 0-5 [facility] Urine RBC 0 SEEN /hpf 0-5 [facility] Mucus LM Ql (Urine sed)Order ed By: Anya Basilio on 12-20-2024 Mucus Ql (Urine sed) 0 SEEN /hpf [facility] Nitrite Test strip Ql (U)Ord ered By: Anya Basilio on 12-20-2024 Nitrite Ql (U) Negative Negative [facility] No Panel InformationOrdered By: Anya Basilio on 12-20-2024 Troponin T Hi Sensitivity 4Hr Delta 1 [facility] Comment on above: Downstream testing a nd, if negative, consider other etiologies for elevated troponin. Troponin T Hi Sensitivity 2Hr Delta 0 [facility] Comment on above: If clinical suspicio n for ACS is high, suggest getting a third troponin. Otherwise, stress test or CTCA. Troponin T High Sensitivity 19 ng/L <22 [facility] Platelet countOrdered By: Jose Basilio on 12-20-2024 Platelets (Bld) [#/Vol] 279 10*3/uL 150-450 [facility] Protein Test strip Ql (U)Ord ered By: Anya Basilio on 12-20-2024 Protein Ql (U) 30 mg/dl High Negative [facility] Prothrombin Time w/INRon INR Coag (PPP) [Relative time] 1.0 {INR} Normal [facility] Comment on above: Performed By: #### L [id number], L506.0400, L501.5200, L501.49915, L500.2500 #### [facility] [address] [place], [address] PT Coag (PPP) [Time] 13.8 s Normal 11.7-14.9 [facility] Comment on above: Performed By: #### L [id number], L506.0400, L501.5200, L501.52337, L500.2500 #### [facility] [address] [place], [address] Prothrombin timeOrdered By: Anya Basilio on 12-20-2024 PT Coag (PPP) [Time] 13.8 s 11.7-14.9 [facility] RBC Auto (Bld) [#/Vol]Ordere d By: Anya Basilio on 12-20-2024 RBC (Bld) [#/Vol] 4.77 10*6/uL 4.6-6.[address] [facility] Serum creatinine measurement (mass/volume)Ordered By: Anya Basilio on 12-20-2024 Creatinine [Mass/Vol] 1.82 mg/dL High 0.70-1.20 [facility] Serum glucose measurement (m ass/volume)Ordered By: Anya Basilio on 12-20-2024 Glucose [Mass/Vol] 139 mg/dL High 70-99 [facility] Serum or plasma anion gap de termination (moles/volume)Ordered By: Anya Basilio on 12-20-2024 Anion gap [Moles/Vol] 15 mmol/L 5-15 [facility] Serum or plasma calcium tasha urement (mass/volume)Ordered By: Anya Basilio on 12-20-2024 Calcium [Mass/Vol] 9.4 mg/dL 7.6-11.0 [facility] Serum or plasma potassium me asurementOrdered By: Anya Basilio on 12-20-2024 Potassium [Moles/Vol] 3.8 mmol/L 3.3-5.1 [facility] Serum or plasma sodium measu rement (moles/volume)Ordered By: Anya Basilio on 12-20-2024 Sodium [Moles/Vol] 137 mmol/L 133-145 [facility] Serum or plasma urea nitroge n measurement (mass/volume)Ordered By: Anya Basilio on 12-20-2024 Urea nitrogen [Mass/Vol] 31 mg/dL High 4-19 [facility] Squamous epithelial cells de tection in urine sediment by light microscopyOrdered By: Anya Basilio on 12-20-2024 Epithelial cells.squamous LM Ql (Urine sed) 0 SEEN /hpf 0-5 [facility] Troponin T.cardiac High sens itivity method [Mass/Vol]Ordered By: Anya Basilio on 12-20-2024 Troponin T High Sensitivity 4 Hour 18 ng/L <22 [facility] Troponin T High Sensitivity 2 Hour 19 ng/L <22 [facility] Troponin T.cardiac [Mass/vol ume] in Serum or Plasma by High sensitivity methodOrdered By: Anya Basilio on 12-20-2024 Troponin T.cardiac High sensitivity method [Mass/Vol] 18 ng/L <22 [facility] Troponin T.cardiac High sensitivity method [Mass/Vol] 19 ng/L <22 [facility] Urinalysis, Completeon 12-20 RBC 0 SEEN Normal 0-5 [facility] Comment on above: Order Comment: CLEAN CATCH Performed By: #### L [id number], L506.0400, L501.5200, L501.07225, L500.2500 #### [facility] [address] [place], [address] BACTERIA 0 SEEN Normal None Seen [facility] Comment on above: Order Comment: CLEAN CATCH Performed By: #### L [id number], L506.0400, L501.5200, L501.88113, L500.2500 #### [facility] [address] [place], [address] EPI,SQUAMOUS 0 SEEN Normal [address] [place] [address] Comment on above: Order Comment: CLEAN CATCH Performed By: #### L [id number], L506.0400, L501.5200, L501.46506, L500.2500 #### [facility] [address] [place], [address] Mucus Ql (Urine sed) 0 SEEN Normal [facility] Comment on above: Order Comment: CLEAN CATCH Performed By: #### L [id number], L506.0400, L501.5200, L501.95488, L500.2500 #### [facility] [address] [place], [address] WBC 0 SEEN Normal 0-5 [facility] Comment on above: Order Comment: CLEAN CATCH Performed By: #### L [id number], L506.0400, L501.5200, L501.17573, L500.2500 #### [facility] [place], [address] Urine blood detectionOrdered By: Anya Basilio on 12-20-2024 Urine Occult Blood Negative Negative [facility] Urine clarityOrdered By: Jayde Basilio on 12-20-2024 Clarity (U) Clear Clear [facility] Urine color determinationOrd ered By: Anya Basilio on 12-20-2024 Color (U) Yellow Yellow [facility] Urine glucose detectionOrder ed By: Anya Basilio on 12-20-2024 Glucose Ql (U) Normal mg/dl Normal [facility] Urine leukocyte esterase det ection by dipstickOrdered By: Anya Basilio on 12-20-2024 Leukocyte esterase Test strip Ql (U) Negative Negative [facility] Urine pHOrdered By: Anya machuca on 12-20-2024 pH (U) 6.5 [pH] 5.0 - 8.0 [facility] Urine sediment bacteria coun t by microscopy (number/high power field)Ordered By: Anya Basilio on 12-20-2024 Bacteria LM.HPF (Urine sed) [#/Area] 0 /[HPF] None Seen [facility] Urine specific gravity measu rementOrdered By: Anya Basilio on 12-20-2024 Specific gravity (U) [Rel density] 1.010 1.002-1.030 [facility] Urine urobilinogen measureme ntOrdered By: Anya Basilio on 12-20-2024 Urobilinogen Ql (U) 1 mg/dl High Normal [facility] Urobilinogen Ql (U)Ordered B y: Anya Basilio on 12-20-2024 Urobilinogen (U) [Mass/Vol] 1 mg/dL High Normal [facility] White blood cell (WBC) count Ordered By: Anya Basilio on 12-20-2024 WBC (Bld) [#/Vol] 12.3 10*3/uL High 4.4-11.[address] [facility] White blood cell countOrdere d By: Anya Basilio on 12-20-2024 Urine WBC 0 SEEN /hpf 0-5 [facility] White blood cell count 0 SEEN /hpf 0-5 [facility] .Auto Diffon 12-15-2024 Basophil, Absolute 0.1 10 3/mcL Normal 0.0-0.3 [facility] Comment on above: Performed By: #### G FR, CBC, ANEU, BMP, PRO, ABSGEL, ABOGEL, ADIFF ####[address] [address] Basophils/100 WBC (Bld) 0.9 % Normal 0.0-2.5 [facility] Comment on above: Performed By: #### G FR, CBC, ANEU, BMP, PRO, ABSGEL, ABOGEL, ADIFF ####[address] [address] Eosinophil, Absolute 0.4 10 3/mcL Normal 0.0-0.7 [facility] Comment on above: Performed By: #### G FR, CBC, ANEU, BMP, PRO, ABSGEL, ABOGEL, ADIFF ####[address] [address] Eosinophils/100 WBC (Bld) 4.0 % Normal 0.0-6.0 [facility] Comment on above: Performed By: #### G FR, CBC, ANEU, BMP, PRO, ABSGEL, ABOGEL, ADIFF ####[address] [address] Lymphocyte, Absolute 2.1 10 3/mcL Normal 0.9-4.3 [facility] Comment on above: Performed By: #### G FR, CBC, ANEU, BMP, PRO, ABSGEL, ABOGEL, ADIFF ####[address] [address] Lymphocytes/100 WBC (Bld) 24.2 % Normal 20.0-40.0 [facility] Comment on above: Performed By: #### G FR, CBC, ANEU, BMP, PRO, ABSGEL, ABOGEL, ADIFF ####[address] [address] Monocyte, Absolute 0.8 10 3/mcL Normal 0.1-1.4 [facility] Comment on above: Performed By: #### G FR, CBC, ANEU, BMP, PRO, ABSGEL, ABOGEL, ADIFF ####[address] [address] Monocytes/100 WBC (Bld) 9.2 % Normal 2.0-13.0 [facility] Comment on above: Performed By: #### G FR, CBC, ANEU, BMP, PRO, ABSGEL, ABOGEL, ADIFF ####[address] [address] Neutrophils/100 WBC (Bld) 61.7 % Normal 50.0-75.0 [facility] Comment on above: Performed By: #### G FR, CBC, ANEU, BMP, PRO, ABSGEL, ABOGEL, ADIFF ####[address] [address] .GFRon 12-15-2024 Estimated Glomerular Filtration Rate 38 ml/min/1.73sqm Normal [facility] Comment on above: Result Comment: Stages of Chronic Kidney Disease (CKD) Stage Description eGFR(ml/min/1.73 sq.m.) CKD 1 Normal kidney function or >=90 normal kindney function with possible kidney damage (ex. Proteinuria) CKD 2 Kidney damage with mild loss 60-89 of kidney function CKD 3a Mild to moderate loss of kidney 45-59 function CKD 3b Moderate to severe loss of 30-44 of kindey function CKD 4 Severe loss of kidney function 15-29 CKD 5 Kidney failure <15 Note: (go live 2024) the eGFR calculation was updated to the 2020 CKD-EPI creatinine equation without a race factor to calculate the eGFR results. Performed By: #### G FR, CBC, ANEU, BMP, PRO, ABSGEL, ABOGEL, ADIFF ####[address] [address] .NEUABSon 12-15-2024 Neutrophil, Absolute 5.4 10 3/mcL Normal 2.3-8.1 [facility] Comment on above: Performed By: #### G FR, CBC, ANEU, BMP, PRO, ABSGEL, ABOGEL, ADIFF ####[address] [address] ABO/Rh (Gel)on 12-15-2024 ABO/Rh Interp Positive Invalid Interpretation Code [facility] Comment on above: Performed By: #### G FR, CBC, ANEU, BMP, PRO, ABSGEL, ABOGEL, ADIFF ####[address] [address] ABS (Gel)on 12-15-2024 ABSC Interp (Gel) Negative Normal [facility] Comment on above: Performed By: #### G FR, CBC, ANEU, BMP, PRO, ABSGEL, ABOGEL, ADIFF ####[address] [address] BMPon 12-15-2024 BUN/Creatinine Ratio 15.7 ratio Normal 10.0-22.0 [facility] Comment on above: Performed By: #### G FR, CBC, ANEU, BMP, PRO, ABSGEL, ABOGEL, ADIFF ####[address] [address] Calcium [Mass/Vol] 9.7 mg/dL Normal 8.7-10.4 [facility] Comment on above: Performed By: #### G FR, CBC, ANEU, BMP, PRO, ABSGEL, ABOGEL, ADIFF ####[address] [address] Chloride [Moles/Vol] 105 mmol/L Normal 98-110 [facility] Comment on above: Performed By: #### G FR, CBC, ANEU, BMP, PRO, ABSGEL, ABOGEL, ADIFF ####[address] [address] CO2 [Moles/Vol] 30 mmol/L Normal 22-32 [facility] Comment on above: Performed By: #### G FR, CBC, ANEU, BMP, PRO, ABSGEL, ABOGEL, ADIFF ####[address] [address] Creatinine [Mass/Vol] 1.78 mg/dL High 0.60-1.40 [facility] Comment on above: Result Comment: Test ing performed on DietBetter analyzer using enzymatic creatinine methodology. Performed By: #### G FR, CBC, ANEU, BMP, PRO, ABSGEL, ABOGEL, ADIFF ####[place] [id number] Electrolyte Balance 5.0 mEq/L Normal 4.0-15.0 [facility] Comment on above: Performed By: #### G FR, CBC, ANEU, BMP, PRO, ABSGEL, ABOGEL, ADIFF ####[place] [id number] Glucose [Mass/Vol] 88 mg/dL Normal 82-115 [facility] Comment on above: Performed By: #### G FR, CBC, ANEU, BMP, PRO, ABSGEL, ABOGEL, ADIFF ####[place] [id number] Potassium [Moles/Vol] 4.4 mmol/L Normal 3.5-5.0 [facility] Comment on above: Performed By: #### G FR, CBC, ANEU, BMP, PRO, ABSGEL, ABOGEL, ADIFF ####[place] [id number] Sodium [Moles/Vol] 140 mmol/L Normal 136-145 [facility] Comment on above: Performed By: #### G FR, CBC, ANEU, BMP, PRO, ABSGEL, ABOGEL, ADIFF ####[place] [id number] Urea nitrogen [Mass/Vol] 28.0 mg/dL High 8.0-22.0 [facility] Comment on above: Performed By: #### G FR, CBC, ANEU, BMP, PRO, ABSGEL, ABOGEL, ADIFF ####[address] [address] CBCon 12-15-2024 Erythrocyte distribution width (RBC) [Ratio] 14.0 % Normal 11.5-15.5 [facility] Comment on above: Performed By: #### G FR, CBC, ANEU, BMP, PRO, ABSGEL, ABOGEL, ADIFF ####[place] [id number] Hematocrit (Bld) [Volume fraction] 46.0 % Normal 40.0-52.0 [facility] Comment on above: Performed By: #### G FR, CBC, ANEU, BMP, PRO, ABSGEL, ABOGEL, ADIFF ####[place] [address] Hgb 15.6 G/dL Normal 13.0-17.5 [facility] Comment on above: Performed By: #### G FR, CBC, ANEU, BMP, PRO, ABSGEL, ABOGEL, ADIFF ####[place] [address] MCH (RBC) [Entitic mass] 30.2 pg Normal 27.0-33.0 [facility] Comment on above: Performed By: #### G FR, CBC, ANEU, BMP, PRO, ABSGEL, ABOGEL, ADIFF ####[place] [address] MCHC 33.9 G/dL Normal 32.0-36.0 [facility] Comment on above: Performed By: #### G FR, CBC, ANEU, BMP, PRO, ABSGEL, ABOGEL, ADIFF ####[place] [address] MCV (RBC) [Entitic vol] 89.0 fL Normal 81.0-100.0 [facility] Comment on above: Performed By: #### G FR, CBC, ANEU, BMP, PRO, ABSGEL, ABOGEL, ADIFF ####[place] [address] Platelet 216 10 3/mcL Normal 150-450 [facility] Comment on above: Performed By: #### G FR, CBC, ANEU, BMP, PRO, ABSGEL, ABOGEL, ADIFF ####[place] [address] Platelet mean volume (Bld) [Entitic vol] 8.4 fL Normal 6.4-10.5 [facility] Comment on above: Performed By: #### G FR, CBC, ANEU, BMP, PRO, ABSGEL, ABOGEL, ADIFF ####[place] [address] RBC 5.18 10 6/mcL Normal 4.50-6.00 [facility] Comment on above: Performed By: #### G FR, CBC, ANEU, BMP, PRO, ABSGEL, ABOGEL, ADIFF ####[facility] [place] [address] WBC 8.8 10 3/mcL Normal 4.5-10.8 [facility] Comment on above: Performed By: #### G FR, CBC, ANEU, BMP, PRO, ABSGEL, ABOGEL, ADIFF ####[facility] [place] [address] LABORATORYOrdered By: Nat Majano on 12-15-2024 ABO and Rh group Nom (Bld) Blood group A Rh(D) positive Invalid Interpretation Code AH BB Auto SS Blood group antibody screen Ql Negative [facility]SC (12/15/24 12:42 PM) Normal AH BB Auto SS LABORATORYOrdered By: SYSTEM SYSTEM on 12-15-2024 Basophils (Bld) [#/Vol] 0.1 103/mcL Normal 0.0 - 0.3 10^3/mcL AH Workflow SS Basophils/100 WBC (Bld) 0.9 % Normal 0.0 - 2.5 % AH Workflow SS Calcium [Mass/Vol] 9.7 mg/dL Normal 8.7 - 10. 4 mg/dL ADM SS Chloride [Moles/Vol] 105 mmol/L Normal 98 - 11 0 mEq/L ADM SS CO2 [Moles/Vol] 30 mmol/L Normal 22 - 32 mEq/L ADM SS Creatinine [Mass/Vol] 1.78 mg/dL High 0.60 - 1.40 mg/dL AH ADM SS Comment on above: Interpretive Data: T esting performed on DietBetter analyzer using enzymatic creatinine methodology. Electrolyte Balance 5.0 mEq/L Normal 4.0 - 15 .0 mEq/L AH ADM SS Eosinophils (Bld) [#/Vol] 0.4 103/mcL Normal 0.0 - 0.7 10^3/mcL AH Workflow SS Eosinophils/100 WBC (Bld) 4.0 % Normal 0.0 - 6.0 % AH Workflow SS Erythrocyte distribution width (RBC) [Ratio] 14.0 % Normal 11.5 - 15.5 % AH Workflow SS Estimated Glomerular Filtration Rate 38 ml/min/1.73sqm Invalid Interpretation Code Chemistry S Comment on above: Interpretive Data: Stages of Chronic Kidney Disease (CKD) Stage Description eGFR(ml/min/1.73 sq.m.) CKD 1 Normal kidney function or >=90 normal kindney function with possible kidney damage (ex. Proteinuria) CKD 2 Kidney damage with mild loss 60-89 of kidney function CKD 3a Mild to moderate loss of kidney 45-59 function CKD 3b Moderate to severe loss of 30-44 of kindey function CKD 4 Severe loss of kidney function 15-29 CKD 5 Kidney failure <15 Note: (go live 2024) the eGFR calculation was updated to the 2020 CKD-EPI creatinine equation without a race factor to calculate the eGFR results. Glucose [Mass/Vol] 88 mg/dL Normal 82 - 115 mg/dL AH ADM SS Hematocrit (Bld) [Volume fraction] 46.0 % Normal 40.0 - 52.0 % AH Workflow SS Hemoglobin (Bld) [Mass/Vol] 15.6 G/dL Normal 13.0 - 17.5 G/dL AH Workflow SS Lymphocytes (Bld) [#/Vol] 2.1 103/mcL Normal 0.9 - 4.3 10^3/mcL AH Workflow SS Lymphocytes/100 WBC (Bld) 24.2 % Normal 20.0 - 40.0 % AH Workflow SS MCH (RBC) [Entitic mass] 30.2 pg Normal 27.0 - 33.0 pg AH Workflow SS MCHC 33.9 G/dL Normal 32.0 - 36.0 G/dL AH Workflow SS MCV (RBC) [Entitic vol] 89.0 fL Normal 81.0 - 100.0 fL AH Workflow SS Monocytes (Bld) [#/Vol] 0.8 103/mcL Normal 0.1 - 1.4 10^3/mcL AH Workflow SS Monocytes/100 WBC (Bld) 9.2 % Normal 2.0 - 13.0 % AH Workflow SS Neutrophils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 L501.5200, L501.80736, L500.2500 #### [facility] Laboratory [address] [place], [address] Laboratory - Chemistry and C hemistry - challengeOrdered By: Samm Satnos on 10-06-2024 AST [Catalytic activity/Vol] 20 U/L 15-37 [facility] MCV (mean corpuscular volume ) determinationOrdered By: Samm Santos on 10-06-2024 MCV (RBC) [Entitic vol] 87.4 fL 80-94 [facility] Mean corpuscular hemoglobin (MCH) determinationOrdered By: Samm Santos on 10-06-2024 MCH (RBC) [Entitic mass] 30.0 pg 27.0-32.0 [facility] Mean corpuscular hemoglobin concentration (MCHC) determinationOrdered By: Samm Santos on 10-06-2024 MCHC (RBC) [Mass/Vol] 34.4 g/dL 32-36 [facility] Mean platelet volume determi nationOrdered By: Samm Santos on 10-06-2024 Platelet mean volume (Bld) [Entitic vol] 10.6 fL 6.2-12.0 [facility] Microscopic analysis of urin e for red blood cells (RBC)Ordered By: Samm Santos on 10-06-2024 Urine RBC 0 SEEN /hpf 0-5 [facility] Mucus LM Ql (Urine sed)Order ed By: Samm Santos on 10-06-2024 Mucus Ql (Urine sed) 0 SEEN /hpf [facility] Nitrite Test strip Ql (U)Ord ered By: Samm Santos on 10-06-2024 Nitrite Ql (U) Negative Negative [facility] Platelet countOrdered By: Becki Santos on 10-06-2024 Platelets (Bld) [#/Vol] 281 10*3/uL 150-450 [facility] Potassium measurementOrdered By: Samm Santos on 10-06-2024 Potassium [Moles/Vol] 3.7 mmol/L 3.5-5.1 [facility] Protein Test strip Ql (U)Ord ered By: Samm Santos on 10-06-2024 Protein Ql (U) 30 mg/dl High Negative [facility] RBC Auto (Bld) [#/Vol]Ordere d By: Samm Santos on 10-06-2024 RBC (Bld) [#/Vol] 4.76 10*6/uL 4.6-6.[address] [facility] Serum anion gap measurementO rdered By: Samm Santos on 10-06-2024 Anion gap [Moles/Vol] 11 mmol/L 5-15 [facility] Serum globulin measurementOr dered By: Samm Santos on 10-06-2024 Globulin (S) [Mass/Vol] 4.2 g/dL 2.2-4.2 [facility] Serum or plasma alanine arroyo otransferase (ALT) measurementOrdered By: Samm Santos on 10-06-2024 ALT [Catalytic activity/Vol] 28 U/L 16-61 [facility] Serum or plasma albumin tasha urement (mass/volume)Ordered By: Samm Santos on 10-06-2024 Albumin [Mass/Vol] 3.3 g/dL 3.2-5.0 [facility] Serum or plasma alkaline omid sphatase measurementOrdered By: Samm Santos on 10-06-2024 ALP [Catalytic activity/Vol] 98 U/L 45-117 [facility] Serum or plasma calcium tasha urement (mass/volume)Ordered By: Samm Santos on 10-06-2024 Calcium [Mass/Vol] 9.3 mg/dL 8.5-10.1 [facility] Serum or plasma creatinine m easurement (mass/volume)Ordered By: Samm Santos on 10-06-2024 Creatinine [Mass/Vol] 1.86 mg/dL High 0.70-1.30 [facility] Comment on above: The validity of the calculated GFR & GFRAA in patients over 70 years has not been determined. Clinical correlation is essential. Serum or plasma urea nitroge n measurement (mass/volume)Ordered By: Samm Santos on 10-06-2024 Urea nitrogen [Mass/Vol] 26 mg/dL High 7-18 [facility] Sodium levelOrdered By: Ignacio Santos on 10-06-2024 Sodium [Moles/Vol] 135 mmol/L Low 136-145 [facility] Total proteinOrdered By: Nataly Santos on 10-06-2024 Protein [Mass/Vol] 7.5 g/dL 6.4-8.2 [facility] Troponin IOrdered By: Samm Santos on 10-06-2024 Troponin I High Sensitivity 7 pg/mL 3.0-78.0 [facility] Comment on above: Please Note: New Antionette t Units and Gender Specific Reference Ranges. For more information see Policy Stat Procedure [place] High Sensitivity Troponin (TNIH) and attachments. Urinalysis, Completeon 10-06 BACTERIA 1+ /hpf Normal None Seen [facility] Comment on above: Order Comment: HARI CTOR TO SPECIFY Performed By: #### L [id number] #### [facility] Laboratory [address] [place], [address] EPI,SQUAMOUS 0-5 SEEN Normal 0-5 [facility] Comment on above: Order Comment: HARI CTOR TO SPECIFY Performed By: #### L [id number] #### [facility] Laboratory [address] [place], [address] WBC 0-5 SEEN Normal 0-5 [facility] Comment on above: Order Comment: HARI CTOR TO SPECIFY Performed By: #### L [id number] #### [facility] Laboratory [address] [place], [address] Mucus Ql (Urine sed) 0 SEEN Normal [facility] Comment on above: Order Comment: HARI CTOR TO SPECIFY Performed By: #### L [id number] #### [facility] Laboratory [address] [place], [address] RBC 0 SEEN Normal 0-5 [facility] Comment on above: Order Comment: HARI CTOR TO SPECIFY Performed By: #### L [id number] #### [facility] Laboratory [address] [place], [place], [address] Urine blood detectionOrdered By: Samm Santos on 10-06-2024 Urine Occult Blood Negative Negative [facility] Urine clarityOrdered By: Nataly Santos on 10-06-2024 Clarity (U) Sl. Cloudy Clear [facility] Urine color determinationOrd ered By: Samm Santos on 10-06-2024 Color (U) Yellow Yellow [facility] Urine leukocyte esterase det ection by dipstickOrdered By: Samm Santos on 10-06-2024 Leukocyte esterase Test strip Ql (U) 25 /ul High Negative [facility] Urine pHOrdered By: Samm smith on 10-06-2024 pH (U) 6.5 [pH] 5.0 - 8.0 [facility] Urine sediment bacteria coun t by microscopy (number/high power field)Ordered By: Samm Santos on 10-06-2024 Bacteria LM.HPF (Urine sed) [#/Area] 1 /[HPF] None Seen [facility] Urine specific gravity measu rementOrdered By: Samm Santos on 10-06-2024 Specific gravity (U) [Rel density] 1.010 1.002-1.030 [facility] Urobilinogen Ql (U)Ordered B y: Samm Santos on 10-06-2024 Urobilinogen (U) [Mass/Vol] 4 mg/dL High Normal [facility] White blood cell (WBC) count Ordered By: Samm Santos on 10-06-2024 WBC (Bld) [#/Vol] 17.5 10*3/uL High 4.4-11.[address] [facility] White blood cell countOrdere d By: Samm Danielle on 10-06-2024 Urine WBC 0-5 SEEN /hpf 0-5 [facility] Basic Metabolic Profile (BMP )on 09-08-2024 BUN/CRE 14.4 RATIO Normal 10-20 [facility] Comment on above: Performed By: #### L [id number], L506.0400, L501.5200, L501.06371, L500.2500 #### [facility] Laboratory [address] [place], [address] CA,Total 9.0 mg/dL Normal 8.5-10.1 [facility] Comment on above: Performed By: #### L [id number], L506.0400, L501.5200, L501.60784, L500.2500 #### [facility] Laboratory [address] [place], [address] Chloride [Moles/Vol] 104 mmol/L Normal 98-107 [facility] Comment on above: Performed By: #### L [id number], L506.0400, L501.5200, L501.47942, L500.2500 #### [facility] Laboratory [address] [place], [address] CO2 [Moles/Vol] 28.0 mmol/L Normal 21.0-32.0 [facility] Comment on above: Performed By: #### L [id number], L506.0400, L501.5200, L501.80246, L500.2500 #### [facility] Laboratory [address] [place], [address] Creatinine [Mass/Vol] 1.74 mg/dL High 0.70-1.30 [facility] Comment on above: Result Comment: The validity of the calculated GFR GFRAA in patients over 70 years has not been determined. Clinical correlation is essential. Performed By: #### L [id number], L506.0400, L501.5200, L501.29030, L500.2500 #### [facility] Laboratory [address] [place], [address] EST GFR - AA 49 mL/min Low >60 [facility] Comment on above: Result Comment: Afri can [place] GFR Calc Performed By: #### L [id number], L506.0400, L501.5200, L501.57900, L500.2500 #### [facility] Laboratory [address] [place], [address] GAP 5 Normal 5-15 [facility] Comment on above: Performed By: #### L [id number], L506.0400, L501.5200, L501.15824, L500.2500 #### [facility] Laboratory [address] [place], [address] GFR/1.73 sq M.predicted among non-blacks MDRD (S/P/Bld) [Vol rate/Area] 40 mL/min/{1.73_m2} Low >60 [facility] Comment on above: Result Comment: Non- GFR Calc Performed By: #### L [id number], L506.0400, L501.5200, L501.11056, L500.2500 #### [facility] Laboratory [address] [place], [address] Glucose [Mass/Vol] 124 mg/dL High 74-106 [facility] Comment on above: Result Comment: Fast ing Glucose result from 100 to 125 mg/dL suggests IMPAIRED HOMEOSTASIS per A.D.A. criteria. Performed By: #### L [id number], L506.0400, L501.5200, L501.41253, L500.2500 #### [facility] [address] [place], [address] Potassium [Moles/Vol] 3.9 mmol/L Normal 3.5-5.1 [facility] Comment on above: Performed By: #### L [id number], L506.0400, L501.5200, L501.45263, L500.2500 #### [facility] Laboratory [address] [place], [address] Sodium [Moles/Vol] 137 mmol/L Normal 136-145 [facility] Comment on above: Performed By: #### L [id number], L506.0400, L501.5200, L501.05520, L500.2500 #### [facility] [address] [place], [address] Urea nitrogen [Mass/Vol] 25 mg/dL High 05-08 [facility] Comment on above: Performed By: #### L [id number], L506.0400, L501.5200, L501.91644, L500.2500 #### [facility] Laboratory [address] [place], [address] Blood urea nitrogen (BUN)/cr eatinine ratioOrdered By: Brayden Balderrama on 09-08-2024 Urea nitrogen/Creatinine [Mass ratio] 14.4 mg/mg 10- [facility] Carbon dioxide measurementOr dered By: Brayden Balderrama on 09-08-2024 CO2 [Moles/Vol] 28.0 mmol/L 21.0-32.0 [facility] Chloride measurementOrdered By: Brayden Balderrama on 09-08-2024 Chloride [Moles/Vol] 104 mmol/L 98-107 [facility] Direct serum free thyroxine (FT4) measurementOrdered By: Brayden Balderrama on 09-08-2024 Free T4 [Mass/Vol] 1.03 ng/dL 0.76-1.46 [facility] Estimated glomerular filtrat ion rate (GFR) AmericanOrdered By: Brayden Balderrama on 09-08-2024 Estimated GFR (MDRD) Amer 49 mL/min Low >60 [facility] Comment on above: GFR Calc Free T3on 09-08-2024 Free T3 [Mass/Vol] 2.1 pg/mL Low 2.18-3.98 [facility] Comment on above: Performed By: #### L [id number], L506.0400, L501.5200, L501.09183, L500.2500 #### [facility] Laboratory [address] [place], [place], [address] Free [id number] By: Brayden riddle on 09-08-2024 Free Triiodothyronine (T3) pg/dL 2.1 pg/mL Low 2.18-3.98 [facility] Glomerular filtration rate ( GFR) estimationOrdered By: Brayden Badlerrama on 09-08-2024 Estimated GFR (MDRD) Non-Af Amer 40 mL/min Low >60 [facility] Comment on above: Non- GFR Calc Glucose measurementOrdered B y: Brayden Balderrama on 09-08-2024 Glucose [Mass/Vol] 124 mg/dL High 74-106 [facility] Comment on above: Fasting Glucose resu lt from 100 to 125 mg/dL suggests IMPAIRED HOMEOSTASIS per A.D.A. criteria. Magnesiumon 09-08-2024 Magnesium [Mass/Vol] 2.4 mg/dL Normal 1.6-2.6 [facility] Comment on above: Performed By: #### L [id number], L506.0400, L501.5200, L501.57380, L500.2500 #### [facility] [address] [place], [place], [id number] Magnesium measurementOrdered By: Brayden Balderrama on 09-08-2024 Magnesium [Mass/Vol] 2.4 mg/dL 1.6-2.6 [facility] Potassium measurementOrdered By: Brayden Balderrama on 09-08-2024 Potassium [Moles/Vol] 3.9 mmol/L 3.5-5.1 [facility] Serum anion gap measurementO rdered By: Brayden Balderrama on 09-08-2024 Anion gap [Moles/Vol] 5 mmol/L 5-15 [facility] Serum or plasma calcium tasha urement (mass/volume)Ordered By: Brayden Balderrama on 09-08-2024 Calcium [Mass/Vol] 9.0 mg/dL 8.5-10.1 [facility] Serum or plasma creatinine m easurement (mass/volume)Ordered By: Brayden Balderrama on 09-08-2024 Creatinine [Mass/Vol] 1.74 mg/dL High 0.70-1.30 [facility] Comment on above: The validity of the calculated GFR & GFRAA in patients over 70 years has not been determined. Clinical correlation is essential. Serum or plasma urea nitroge n measurement (mass/volume)Ordered By: Brayden Balderrama on 09-08-2024 Urea nitrogen [Mass/Vol] 25 mg/dL High 7-18 [facility] Sodium levelOrdered By: Brayden Balderrama on 09-08-2024 Sodium [Moles/Vol] 137 mmol/L 136-145 [facility] T4 Free Directon 09-08-2024 T4 FREE DIRECT 1.03 ng/dL Normal 0.76-1.46 [facility] Comment on above: Performed By: #### L [id number], L506.0400, L501.5200, L501.58338, L500.2500 #### [facility] Laboratory [address] [place], [place], [id number] TSH QnOrdered By: Brayden sanders on 09-08-2024 Thyroid Stimulating Hormone (TSH) 2.130 uIU/mL 0.358-3.740 [facility] Thyroid Stim Hormone (TSH)on 09-08-2024 TSH 2.130 uIU/mL Normal 0.358-3.740 [facility] Comment on above: Performed By: #### L [id number], L506.0400, L501.5200, L501.66340, L500.2500 #### [facility] [address] [place], [place], [address] Basophil percentageOrdered B y: Brayden Balderrama on 09-06-2023 Chloride [Moles/Vol] 105 mmol/L 98-107 [facility] Cholesterol [Mass/Vol] 198 mg/dL <200 [facility] Comment on above: <200 mg/dL Desirable 200-240 mg/dL Borderline >240 mg/dL High Risk Glucose [Mass/Vol] 84 mg/dL 74-106 [facility] Potassium [Moles/Vol] 4.3 mmol/L 3.5-5.1 [facility] Sodium [Moles/Vol] 138 mmol/L 136-145 [facility] Triglyceride [Mass/Vol] 128 mg/dL <199 [facility] Comment on above: The drugs N-Acetylcy steine and Metamizole may falsely depress this assay.Serum Triglycerides Reference Interval Normal <150 mg/dL Borderline high 150 - 199 mg/dL High 200 - 499 mg/dL Very High > or = 500 mg/dL Laboratory - Chemistry and C hemistry - challengeOrdered By: Brayden Balderrama on 09-06-2023 CO2 [Moles/Vol] 26.0 mmol/L 21.0-32.0 [facility] Free T4 [Mass/Vol] 1.06 ng/dL 0.76-1.46 [facility] Magnesium [Mass/Vol] 2.6 mg/dL 1.6-2.6 [facility] Urea nitrogen/Creatinine [Mass ratio] 16.0 mg/mg 10-20 [facility] No Panel InformationOrdered By: Brayden Baldrerama on 09-06-2023 Estimated GFR (MDRD) Amer 45 mL/min >60 [facility] Comment on above: GFR Calc Estimated GFR (MDRD) Non-Af Amer 37 mL/min >60 [facility] Comment on above: Non- GFR Calc Free Triiodothyronine (T3) pg/dL 2.4 pg/mL 2.18-3.98 [facility] Thyroid Stimulating Hormone (TSH) 2.72 uIU/mL 0.358-3.74 [facility] Serum or plasma calcium tasha urement (mass/volume)Ordered By: Brayden Balderrama on 09-06-2023 Calcium [Mass/Vol] 8.7 mg/dL 8.5-10.1 [facility] Serum or plasma cholesterol in HDL measurement (mass/volume)Ordered By: Brayden Balderrama on 09-06-2023 Cholesterol in HDL [Mass/Vol] 36 mg/dL >40 [facility] Comment on above: The drugs N-Acetylcy steine and Metamizole may falsely depress this assay. Reference Range HDL <40 mg/dL Low HDL Cholesterol HDL >or= 60 mg/dL High HDL Cholesterol Serum or plasma cholesterol in VLDL measurement (mass/volume)Ordered By: Brayden Balderrama on 09-06-2023 Cholesterol in VLDL [Mass/Vol] 26 mg/dL 5-40 [facility] Serum or plasma creatinine m easurement (mass/volume)Ordered By: Brayden Balderrama on 09-06-2023 Creatinine [Mass/Vol] 1.87 mg/dL 0.70-1.30 [facility] Comment on above: The validity of the calculated GFR & GFRAA in patients over 70 years has not been determined. Clinical correlation is essential. Serum or plasma low density lipoprotein (LDL) cholesterol measurement (mass/volume)Ordered By: Brayden Balderrama on 09-06-2023 Cholesterol in LDL [Mass/Vol] 136 mg/dL 0-130 [facility] Serum or plasma urea nitroge n measurement (mass/volume)Ordered By: Brayden Balderrama on 09-06-2023 Urea nitrogen [Mass/Vol] 30 mg/dL 7-18 [facility] Thin prep Papanicolaou smear with manual screeningOrdered By: Brayden Balderrama on 09-06-2023 Thin prep Papanicolaou smear with manual screening 7 5-15 [facility] NM MYOCARDIAL SPECT STRESS/R ESTon 08-10-2023 NM MYOCARDIAL SPECT STRESS/REST ORIGINAL NM MYOCARDIAL SPECT STRESS/REST CLINICAL STATEMENT: frequent PVCs TECHNIQUE: Lexiscan dose: 0.4 mg Radiopharmaceutical (stress): Tc-99m Sestamibi Dose:32.8 mCi Radiopharmaceutical (rest): Tc-99m Sestamibi Dose:10.6 mCi SPECT acquisition and processing Reconstruction and reorientation of SPECT images into short axis, vertical and horizontal long axis planes Quantitative LVEF assessment COMPARISON:None REPORT:Overall fair quality study. No significant fixed or reversible perfusion defects are noted. LEFT ventricular ejection fraction is 59%. Tid ratio is 1.06 and LEFT ventricular end-diastolic volume is 70 mL. IMPRESSION: No evidence of ischemia or infarction Normal LEFT ventricular ejection fraction. ECG portion will be dictated separately. Interpreted By: John Archer Preliminary Report By: John Archer Electronically Signed By: John Archer Dictated Date: 08/10/2023 4:45:12 PM Prelim Date: 08/10/2023 4:45:12 PM Sign Date: 08/10/2023 4:46:29 PM Ordering Provider:Ashley Diez [facility] ([place]) Laboratory - Chemistry and C hemistry - challengeOrdered By: Brayden Balderrama on 03-01-2023 Free T4 [Mass/Vol] 1.65 ng/dL 0.76-1.46 [facility] No Panel InformationOrdered By: Brayden Balderrama on 03-01-2023 Free Triiodothyronine (T3) pg/dL 1.5 pg/mL 2.18-3.98 [facility] Thyroid Stimulating Hormone (TSH) 2.47 uIU/mL 0.358-3.74 [facility] Basophil percentageOrdered B y: Dr. Santos on 02-18-2023 Basophil percentage 0-5 SEEN /hpf 0-5 [facility] Bilirubin Test strip Ql (U)O rdered By: Dr. Santos on 02-18-2023 Bilirubin Ql (U) Negative Negative [facility] Hyaline casts LM.LPF (Urine sed) [#/Area]Ordered By: Dr. Santos on 02-18-2023 Hyaline casts (Urine sed) [#/Area] 0 /[LPF] 0-5 [facility] Ketones Test strip Ql (U)Ord ered By: Dr. Santos on 02-18-2023 Ketones Ql (U) 50 mg/dl Negative [facility] Mucus LM Ql (Urine sed)Order ed By: Dr. Santos on 02-18-2023 Mucus Ql (Urine sed) 1+ /hpf [facility] Nitrite Test strip Ql (U)Ord ered By: Dr. Santos on 02-18-2023 Nitrite Ql (U) Negative Negative [facility] No Panel InformationOrdered By: Dr. Santos on 02-18-2023 Troponin I High Sensitivity 30 pg/mL 3.0-78.0 [facility] Comment on above: Please Note: New Antionette t Units and Gender Specific Reference Ranges. For more information see Policy Stat Procedure [place] High Sensitivity Troponin (TNIH) and attachments. Protein Test strip Ql (U)Ord ered By: Dr. Santos on 02-18-2023 Protein Ql (U) 100 mg/dl Negative [facility] Squamous epithelial cells de tection in urine sediment by light microscopyOrdered By: Dr. Santos on 02-18-2023 Epithelial cells.squamous LM Ql (Urine sed) 0-5 SEEN /hpf 0-5 [facility] Urine blood detectionOrdered By: Dr. Santos on 02-18-2023 RBC Ql (U) 25 /ul Negative [facility] RBC Ql (U) 0-5 SEEN /hpf 0-5 [facility] Urine clarityOrdered By: Dr. Santos on 02-18-2023 Clarity (U) Clear Clear [facility] Urine color determinationOrd ered By: Dr. Santos on 02-18-2023 Color (U) Yellow Yellow [facility] Urine glucose detectionOrder ed By: Dr. Santos on 02-18-2023 Glucose Ql (U) Normal mg/dl Normal [facility] Urine leukocyte esterase det ection by dipstickOrdered By: Dr. Santos on 02-18-2023 Leukocyte esterase Test strip Ql (U) 25 /ul Negative [facility] [place] [facility] pHOrdered By: Dr. Mina cruz on 02-18-2023 pH (U) 5.0 [pH] 5.0 - 8.0 [facility] [place] Urine sediment bacteria coun t by microscopy (number/high power field)Ordered By: Dr. Santos on 02-18-2023 Bacteria LM.HPF (Urine sed) [#/Area] 2 /[HPF] None Seen [facility] [place] Urine specific gravity measu rementOrdered By: Dr. Santos on 02-18-2023 Specific gravity (U) [Rel density] 1.020 1.002-1.030 [facility] [place] Urobilinogen Auto test strip Ql (U)Ordered By: Dr. Santos on 02-18-2023 Urobilinogen Ql (U) 4 mg/dl Normal [facility] Absolute lymphocyte countOrd ered By: Dr. Santos on 02-17-2023 Lymphocytes Auto (Unsp spec) [#/Vol] 1.12 10*3/uL 0.83-4.51 [facility] [place] Basophil percentageOrdered B y: Dr. Santos on 02-17-2023 Basophils/100 WBC (Bld) 0.7 % 0-1 [facility] Chloride [Moles/Vol] 105 mmol/L 98-107 [facility] Eosinophils/100 WBC (Bld) 0.2 % 0-5 [facility] [place] Glucose [Mass/Vol] 119 mg/dL 74-106 [facility] Comment on above: Fasting Glucose resu lt from 100 to 125 mg/dL suggests IMPAIRED HOMEOSTASIS per A.D.A. criteria. Neutrophils (Bld) [#/Vol] 5.4 10*3/uL 2.0-7.7 [facility] [place] Neutrophils/100 WBC (Bld) 67.7 % 47-70 [facility] [place] Potassium [Moles/Vol] 3.3 mmol/L 3.5-5.1 [facility] Sodium [Moles/Vol] 135 mmol/L 136-145 [facility] WBC (Bld) [#/Vol] 8.0 10*3/uL 4.4-11.0 [facility] Blood erythrocytes count (nu mber/volume)Ordered By: Dr. Santos on 02-17-2023 RBC (Bld) [#/Vol] 4.75 10*6/uL 4.6-6.[address] [facility] Blood hemoglobin measurement (mass/volume)Ordered By: Dr. Santos on 02-17-2023 Hemoglobin (Bld) [Mass/Vol] 14.6 g/dL 13.0-16.5 [facility] [place] Blood lymphocytes/100 leukoc ytesOrdered By: Dr. Santos on 02-17-2023 Lymphocytes/100 WBC (Bld) 13.9 % 19-41 [facility] [place] Blood monocytes/100 leukocyt esOrdered By: Dr. Santos on 02-17-2023 Monocytes/100 WBC (Bld) 16.3 % 0-10 [facility] Blood platelet mean volumeOr dered By: Dr. Santos on 02-17-2023 Platelet mean volume (Bld) [Entitic vol] 10.1 fL 6.2-12.0 [facility] [place] Determination of erythrocyte mean corpuscular volume (MCV)Ordered By: Dr. Santos on 02-17-2023 MCV (RBC) [Entitic vol] 87.8 fL 80-94 [facility] Hematocrit Auto (Bld) [Volum e fraction]Ordered By: Dr. Santos on 02-17-2023 Hematocrit (Bld) [Volume fraction] 41.7 % 40-54 [facility] [place] Influenza virus A and B and SARS-CoV-2 (COVID-19) Ag panel - Upper respiratory specimOrdered By: Samm Santos on 02-17-2023 SARS-CoV-2 (COVID-19) RNA NAYLA+probe Ql (Resp) [facility] [place] Influenza virus A and B and SARS-CoV-2 (COVID-19) Ag panel - Upper respiratory specimOrdered By: Dr. Santos on 02-17-2023 SARS-CoV-2 (COVID-19) RNA NAYLA+probe Ql (Resp) [facility] [place] Laboratory - Chemistry and C hemistry - challengeOrdered By: Dr. Santos on 02-17-2023 CO2 [Moles/Vol] 25.0 mmol/L 21.0-32.0 [facility] [place] Natriuretic peptide B (Bld) [Mass/Vol] 33.3 pg/mL 0-100 [facility] [place] Urea nitrogen/Creatinine [Mass ratio] 18.2 mg/mg 10-20 [facility] [place] Laboratory - Hematology and Cell countsOrdered By: Dr. Santos on 02-17-2023 Erythrocyte distribution width (RBC) [Entitic vol] 42.5 fL 35.1-43.9 [facility] [place] Erythrocyte distribution width (RBC) [Ratio] 13.2 % 11.6-14.6 [facility] [place] Immature granulocytes/100 WBC (Bld) 1.200 % 0.0-0.9 [facility] [place] Comment on above: IG% - Immature Granu locytes (promyelocytes, myelocytes and metamyelocytes) > 1% indicates that a LEFT SHIFT is Present. MCH (RBC) [Entitic mass] 30.7 pg 27.0-32.0 [facility] [place] Nucleated RBC/100 WBC (Bld) [Ratio] 0 % 0-5 [facility] [place] MCHC Auto (RBC) [Mass/Vol]Or dered By: Dr. Santos on 02-17-2023 MCHC (RBC) [Mass/Vol] 35.0 g/dL 32-36 [facility] No Panel InformationOrdered By: Dr. Santos on 02-17-2023 Estimated Creatinine Clearance Calc 37.62 ml/min [facility] [place] Estimated GFR (MDRD) Amer 54 mL/min >60 [facility] [place] Comment on above: GFR Calc Estimated GFR (MDRD) Non-Af Amer 45 mL/min >60 [facility] [place] Comment on above: Non- GFR Calc Platelets bldOrdered By: Dr. Santos on 02-17-2023 Platelets (Bld) [#/Vol] 143 10*3/uL 150-450 [facility] [place] Serum or plasma calcium tasha urement (mass/volume)Ordered By: Dr. Santos on 02-17-2023 Calcium [Mass/Vol] 8.3 mg/dL 8.5-10.1 [facility] Serum or plasma creatinine m easurement (mass/volume)Ordered By: Dr. Santos on 02-17-2023 Creatinine [Mass/Vol] 1.59 mg/dL 0.70-1.30 [facility] Comment on above: The validity of the calculated GFR & GFRAA in patients over 70 years has not been determined. Clinical correlation is essential. Serum or plasma urea nitroge n measurement (mass/volume)Ordered By: Dr. Santos on 02-17-2023 Urea nitrogen [Mass/Vol] 29 mg/dL 7-18 [facility] [place] Thin prep Papanicolaou smear with manual screeningOrdered By: Dr. Santos on 02-17-2023 Thin prep Papanicolaou smear with manual screening 5 5-15 [facility] [place] Basophil percentageon 2021 Chloride [Moles/Vol] 105 mmol/L 98-107 [facility] Work Phone: Glucose [Mass/Vol] 88 mg/dL 74-106 [facility] Work Phone: Potassium [Moles/Vol] 4.4 mmol/L 3.5-5.1 [facility] Work Phone: Comment on above: Slight Hemolysis, Re sult may be falsely increased. Sodium [Moles/Vol] 140 mmol/L 136-145 [facility] Work Phone: Laboratory - Chemistry and C hemistry - challengeon 10-04-2022 CO2 [Moles/Vol] 26.0 mmol/L 21.0-32.0 [facility] [place] Work Phone: Urea nitrogen/Creatinine [Mass ratio] 13.9 mg/mg 10-20 [facility] [place] Work Phone: No Panel Informationon 10-04 Estimated GFR (MDRD) Amer 57 mL/min >60 [facility] [place] Work Phone: Comment on above: GFR Calc Estimated GFR (MDRD) Non-Af Amer 47 mL/min >60 [facility] [place] Work Phone: Comment on above: Non- GFR Calc Thyroid Stimulating Hormone (TSH) 2.42 uIU/mL 0.358-3.74 [facility] [place] Work Phone: Serum or plasma calcium tasha urement (mass/volume)on 10-04-2022 Calcium [Mass/Vol] 9.2 mg/dL 8.5-10.1 [facility] Work Phone: Serum or plasma creatinine m easurement (mass/volume)on 10-04-2022 Creatinine [Mass/Vol] 1.51 mg/dL 0.70-1.30 [facility] Work Phone: Comment on above: The validity of the calculated GFR & GFRAA in patients over 70 years has not been determined. Clinical correlation is essential. Serum or plasma urea nitroge n measurement (mass/volume)on 10-04-2022 Urea nitrogen [Mass/Vol] 21 mg/dL 7-18 [facility] [place] Work Phone: Thin prep Papanicolaou smear with manual screeningon 10-04-2022 Thin prep Papanicolaou smear with manual screening 9 5-15 [facility] [place] Work Phone: Basophil percentageon 2021 Chloride [Moles/Vol] 105 mmol/L 98-107 [facility] Work Phone: Glucose [Mass/Vol] 111 mg/dL 74-106 [facility] Work Phone: Comment on above: Fasting Glucose resu lt from 100 to 125 mg/dL suggests IMPAIRED HOMEOSTASIS per A.D.A. criteria. Potassium [Moles/Vol] 4.2 mmol/L 3.5-5.1 [facility] Work Phone: Sodium [Moles/Vol] 138 mmol/L 136-145 [facility] Work Phone: Laboratory - Chemistry and C hemistry - challengeon 05-22-2022 CO2 [Moles/Vol] 30.0 mmol/L 21.0-32.0 [facility] [place] Work Phone: Urea nitrogen/Creatinine [Mass ratio] 21.6 mg/mg 10-20 [facility] [place] Work Phone: No Panel Informationon 05-22 Estimated GFR (MDRD) Amer 50 mL/min >60 [facility] [place] Work Phone: Comment on above: GFR Calc Estimated GFR (MDRD) Non-Af Amer 41 mL/min >60 [facility] [place] Work Phone: Comment on above: Non- GFR Calc Serum or plasma calcium tasha urement (mass/volume)on 05-22-2022 Calcium [Mass/Vol] 9.8 mg/dL 8.5-10.1 [facility] Work Phone: [phone] Serum or plasma creatinine m easurement (mass/volume)on 05-22-2022 Creatinine [Mass/Vol] 1.71 mg/dL 0.70-1.30 [facility] Work Phone: Comment on above: The validity of the calculated GFR & GFRAA in patients over 70 years has not been determined. Clinical correlation is essential. Serum or plasma urea nitroge n measurement (mass/volume)on 05-22-2022 Urea nitrogen [Mass/Vol] 37 mg/dL 7-18 [facility] [place] Work Phone: [phone] Thin prep Papanicolaou smear with manual screeningon 05-22-2022 Thin prep Papanicolaou smear with manual screening 3 5-15 [facility] [place] Work Phone: Basophil percentageon 2021 WBC (Bld) [#/Vol] 8.0 10*3/uL 4.4-11.0 [facility] Work Phone: Blood erythrocytes count (nu mber/volume)on 05-08-2022 RBC (Bld) [#/Vol] 4.94 10*6/uL 4.6-6.2 [facility] Work Phone: Blood hemoglobin measurement (mass/volume)on 05-08-2022 Hemoglobin (Bld) [Mass/Vol] 15.0 g/dL 13.0-16.5 [facility] [place] Work Phone: Blood platelet mean volumeon 05-08-2022 Platelet mean volume (Bld) [Entitic vol] 11.0 fL 6.2-12.0 [facility] [place] Work Phone: Determination of erythrocyte mean corpuscular volume (MCV)on 05-08-2022 MCV (RBC) [Entitic vol] 89.7 fL 80-94 [facility] Work Phone: Hematocrit Auto (Bld) [Volum e fraction]on 05-08-2022 Hematocrit (Bld) [Volume fraction] 44.3 % 40-54 [facility] [place] Work Phone: Laboratory - Hematology and Cell countson 05-08-2022 Erythrocyte distribution width (RBC) [Entitic vol] 46.2 fL 35.1-43.9 [facility] [place] Work Phone: Erythrocyte distribution width (RBC) [Ratio] 14.1 % 11.6-14.6 [facility] [place] Work Phone: [phone] MCH (RBC) [Entitic mass] 30.4 pg 27.0-32.0 [facility] [place] Work Phone: [phone] MCHC Auto (RBC) [Mass/Vol]on 05-08-2022 MCHC (RBC) [Mass/Vol] 33.9 g/dL 32-36 [facility] Work Phone: Platelets bldon 05-08-2022 Platelets (Bld) [#/Vol] 252 10*3/uL 150-450 [facility] [place] Work Phone: Basophil percentageon 2021 Chloride [Moles/Vol] 109 mmol/L 98-107 [facility] Work Phone: Cholesterol [Mass/Vol] 190 mg/dL <200 [facility] Work Phone: [phone] Comment on above: <200 mg/dL Desirable 200-240 mg/dL Borderline >240 mg/dL High Risk Glucose [Mass/Vol] 90 mg/dL 74-106 [facility] Work Phone: [phone] Potassium [Moles/Vol] 3.8 mmol/L 3.5-5.1 [facility] Work Phone: [phone] Sodium [Moles/Vol] 143 mmol/L 136-145 [facility] Work Phone: [phone] Triglyceride [Mass/Vol] 93 mg/dL <199 [facility] Work Phone: [phone] Comment on above: The drugs N-Acetylcy steine and Metamizole may falsely depress this assay.Serum Triglycerides Reference Interval Normal <150 mg/dL Borderline high 150 - 199 mg/dL High 200 - 499 mg/dL Very High > or = 500 mg/dL Laboratory - Chemistry and C hemistry - challengeon 04-04-2022 CO2 [Moles/Vol] 29.0 mmol/L 21.0-32.0 [facility] [place] Work Phone: Free T4 [Mass/Vol] 1.14 ng/dL 0.76-1.46 [facility] Work Phone: Urea nitrogen/Creatinine [Mass ratio] 15.0 mg/mg 10-20 [facility] [place] Work Phone: No Panel Informationon 04-04 Estimated GFR (MDRD) Amer 59 mL/min >60 [facility] [place] Work Phone: [phone] Comment on above: GFR Calc Estimated GFR (MDRD) Non-Af Amer 49 mL/min >60 [facility] [place] Work Phone: Comment on above: Non- GFR Calc Free Triiodothyronine (T3) pg/dL 2.7 pg/mL 2.18-3.98 [facility] [place] Work Phone: Thyroid Stimulating Hormone (TSH) 3.18 uIU/mL 0.358-3.74 [facility] [place] Work Phone: Serum or plasma calcium tasha urement (mass/volume)on 04-04-2022 Calcium [Mass/Vol] 9.3 mg/dL 8.5-10.1 [facility] Work Phone: Serum or plasma cholesterol in HDL measurement (mass/volume)on 04-04-2022 Cholesterol in HDL [Mass/Vol] 40 mg/dL >40 [facility] [place] Work Phone: Comment on above: The drugs N-Acetylcy steine and Metamizole may falsely depress this assay. Reference Range HDL <40 mg/dL Low HDL Cholesterol HDL >or= 60 mg/dL High HDL Cholesterol Serum or plasma cholesterol in VLDL measurement (mass/volume)on 04-04-2022 Cholesterol in VLDL [Mass/Vol] 19 mg/dL 5-40 [facility] [place] Work Phone: Serum or plasma creatinine m easurement (mass/volume)on 04-04-2022 Creatinine [Mass/Vol] 1.47 mg/dL 0.70-1.30 [facility] Work Phone: Comment on above: The validity of the calculated GFR & GFRAA in patients over 70 years has not been determined. Clinical correlation is essential. Serum or plasma low density lipoprotein (LDL) cholesterol measurement (mass/volume)on 04-04-2022 Cholesterol in LDL [Mass/Vol] 131 mg/dL 0-130 [facility] [place] Work Phone: Serum or plasma urea nitroge n measurement (mass/volume)on 04-04-2022 Urea nitrogen [Mass/Vol] 22 mg/dL 7-18 [facility] [place] Work Phone: Thin prep Papanicolaou smear with manual screeningon 04-04-2022 Thin prep Papanicolaou smear with manual screening 5 5-15 [facility] [place] Work Phone: Basophil percentageon 2021 Chloride [Moles/Vol] 104 mmol/L 98-107 [facility] Work Phone: Glucose [Mass/Vol] 94 mg/dL 74-106 [facility] Work Phone: Potassium [Moles/Vol] 4.3 mmol/L 3.5-5.1 [facility] Work Phone: Sodium [Moles/Vol] 137 mmol/L 136-145 [facility] Work Phone: Laboratory - Chemistry and C hemistry - challengeon 12-08-2021 CO2 [Moles/Vol] 28.0 mmol/L 21.0-32.0 [facility] [place] Work Phone: Urea nitrogen/Creatinine [Mass ratio] 14.4 mg/mg 10-20 [facility] [place] Work Phone: No Panel Informationon 12-08 Estimated GFR (MDRD) Amer 67 mL/min >60 [facility] [place] Work Phone: Comment on above: GFR Calc Estimated GFR (MDRD) Non-Af Amer 56 mL/min >60 [facility] [place] Work Phone: Comment on above: Non- GFR Calc Serum or plasma calcium tasha urement (mass/volume)on 12-08-2021 Calcium [Mass/Vol] 9.7 mg/dL 8.5-10.1 [facility] Work Phone: Serum or plasma creatinine m easurement (mass/volume)on 12-08-2021 Creatinine [Mass/Vol] 1.32 mg/dL 0.70-1.30 [facility] Work Phone: Comment on above: The validity of the calculated GFR & GFRAA in patients over 70 years has not been determined. Clinical correlation is essential. Serum or plasma urea nitroge n measurement (mass/volume)on 12-08-2021 Urea nitrogen [Mass/Vol] 19 mg/dL 7-18 [facility] [place] Work Phone: Thin prep Papanicolaou smear with manual screeningon 12-08-2021 Thin prep Papanicolaou smear with manual screening 5 5-15 [facility] [place] Work Phone: Office Visiton 08-07-2017 Documentation of current medications (procedure) Done Invalid Interpretation Code [facility] [facility] Work Phone: [phone] Fall risk assessment No Invalid Interpretation Code [facility] [facility] Work Phone: [phone] Lab Report: Basic Metabolic Profile (BMP)on 08-01-2017 Anion gap 7 mmol/L Invalid Interpretation Code 5-15 [facility] Work Phone: [phone] Anion gap 4 molar conc 7 Invalid Interpretation Code -15 [facility] Work Phone: [phone] BUN/Creatinine Ratio 14.6 RATIO Invalid Interpretation Code 10-20 [facility] Work Phone: [phone] Calcium 9.0 mg/dL Invalid Interpretation Code 8.5-10.1 [place] [facility] Work Phone: [phone] Chloride 103 mmol/L Invalid Interpretation Code 98-107 [place] [facility] Work Phone: [phone] CO2 32.0 mmol/L Invalid Interpretation Code 21.0-32.0 [place] [facility] Work Phone: [phone] CO2 ppres (BldV) 32.0 mmol/L Invalid Interpretation Code 21.0-32.0 [place] [facility] Work Phone: [phone] Creatinine 1.44 mg/dL High 0.70-1.30 [facility] Work Phone: [phone] eGFR (non-black) 61 mL/min/{1.73_m2} Invalid Interpretation Code >60 [facility] Work Phone: [phone] eGFR (non-black) 51 mL/min/{1.73_m2} Low >60 [facility] Work Phone: [phone] EST GFR - AA 61 mL/min Invalid Interpretation Code >60 [facility] Work Phone: [phone] Glucose mass conc 95 mg/dL Invalid Interpretation Code 70-110 [facility] Work Phone: [phone] Potassium molar conc 4.1 mmol/L Invalid Interpretation Code 3.5-5.1 [facility] Work Phone: [phone] Sodium 142 mmol/L Invalid Interpretation Code 136-145 [facility] Work Phone: [phone] Urea nitrogen 21 mg/dL High 7-18 [place] [facility] Work Phone: [phone] Lab Report: Lipid Profileon 08-01-2017 Cholesterol 179 mg/dL Invalid Interpretation Code 200 [facility] Work Phone: [phone] HDL Cholesterol 42 mg/dL Invalid Interpretation Code [facility] Work Phone: [phone] LDL Cholesterol 114 mg/dL Invalid Interpretation Code 0-130 [facility] Work Phone: [phone] Triglyceride 114 mg/dL Invalid Interpretation Code [facility] Work Phone: [phone] very low density lipoproteins 23 mg/dL Invalid Interpretation Code 5-40 [facility] Work Phone: [phone] Lab Report: Liver Profileon 08-01-2017 Alanine aminotransferase (ALT) 23 U/L Invalid Interpretation Code 12-78 [facility] Work Phone: [phone] Albumin 3.5 g/dL Invalid Interpretation Code 3.4-5.0 [facility] Work Phone: [phone] Alkaline phosphatase (ALP) 70 U/L Invalid Interpretation Code 45-117 [facility] Work Phone: [phone] ALP enzyme act/vol (Bld) 70 U/L Invalid Interpretation Code 45-117 [facility] Work Phone: [phone] Aspartate aminotransferase (AST) 19 U/L Invalid Interpretation Code 15-37 [facility] Work Phone: [phone] Bilirubin (direct) 0.32 mg/dL High 0.00-0.30 [facility] Work Phone: [phone] Bilirubin (total) 1.50 mg/dL High 0.20-1.00 [facility] Work Phone: [phone] Globulin 3.6 g/dL High 2.3-3.5 [facility] Work Phone: [phone] Protein 7.1 g/dL Invalid Interpretation Code 6.4-8.2 [facility] Work Phone: [phone] Lab Report: CBC W/Diff, Auto matedon 07-21-2016 Absolute Neut 4.3 X10 3/UL Invalid Interpretation Code 2.0-7.7 [facility] Work Phone: [phone] Basophils/100 WBC Auto (Bld) 1.0 % Invalid Interpretation Code 0-1 [place] [facility] Work Phone: [phone] Eosinophils/100 leukocytes 5.6 % High 0-5 [facility] Work Phone: [phone] Erythrocyte distribution width Auto Ratio (RBC) 14.2 % Invalid Interpretation Code 11.6-14.6 [place] Work Phone: [phone] Erythrocyte distribution width Auto Ratio (RBC) 46.4 fL High 35.1-43.9 [facility] Work Phone: [phone] Erythrocytes (RBC) 4.56 10*6/uL Low 4.6-6.2 [facility] Work Phone: [phone] Hematocrit (HCT) 41.5 % Invalid Interpretation Code 40-54 [place] [facility] Work Phone: [phone] Hemoglobin mass conc (Bld) 14.1 g/dL Invalid Interpretation Code 13.0-16.5 [facility] [facility] Work Phone: [phone] Immature granulocytes #/vol (Bld) 0.300 % Invalid Interpretation Code 0.0-0.9 [place] Work Phone: [phone] Immature granulocytes/100 WBC (Bld) 0.300 % Invalid Interpretation Code 0.0-0.9 [facility] Work Phone: [phone] Lymphocytes 1.65 X10 3/UL Invalid Interpretation Code 0.83-4.51 [facility] [facility] Work Phone: [phone] Lymphocytes/100 leukocytes 23.1 % Invalid Interpretation Code 19-41 [facility] Work Phone: [phone] MCH 30.9 pg Invalid Interpretation Code 27.0-32.0 [place] [facility] Work Phone: MCHC mass conc (RBC) 34.0 G/GL Invalid Interpretation Code 32-36 [facility] Work Phone: [phone] MCV 91.0 fL Invalid Interpretation Code 80-94 [facility] Work Phone: [phone] Monocytes/100 leukocytes 10.1 % High 0-10 [facility] Work Phone: [phone] Neutrophils Auto #/vol (Bld) 4.3 X10 3/UL Invalid Interpretation Code 2.0-7.7 [facility] Work Phone: [phone] Neutrophils/100 WBC Auto (Bld) 59.9 % Invalid Interpretation Code 47-70 [facility] Work Phone: [phone] Platelets 252 10*3/mm3 Invalid Interpretation Code 150-450 [facility] Work Phone: [phone] PMV by Devaughn 10.2 fL Invalid Interpretation Code 6.2-12.0 [facility] Work Phone: [phone] RDW SD 46.4 fL High 35.1-43.9 [facility] Work Phone: [phone] WBC (Leukocytes) 7.2 10*3/uL Invalid Interpretation Code 4.4-11.0 [facility] Work Phone: [phone] Office Visiton 07-18-2016 Documentation of current medications (procedure) Done Invalid Interpretation Code [facility] [employer] Phone: [phone] Protein mass conc Done Invalid Interpretation Code [facility] Work Phone: [phone] Lab Report: [id number] CO2 5 mmol/L Normal 5-15 [facility] Work Phone: [phone]) Lab Report: BTNP 4 BNP 17.4 pg/mL Normal 0-100 [facility] Work Phone: [phone]) Lab Report: [id number] Magnesium 1.9 mg/dL Normal 1.8-2.4 [facility] Work Phone: [phone] Lab Report: [id number] Thyroid stimulating hormone (TSH) 2.75 u[iU]/mL Normal 0.358-3.74 [facility] Work Phone: [phone] EKG Report: [facility] ECG Obse rvationson 02-16-2012 BUN (urea nitrogen) Sinus Bradycardia -Right bundle branch block . ABNORMAL Invalid Interpretation Code [facility] Work Phone: [phone] EKG QRS axis 12 deg Invalid Interpretation Code [facility] Work Phone: [phone] P Beggs 65 deg Invalid Interpretation Code [facility] Work Phone: [phone] TX Interval 152 ms Invalid Interpretation Code [facility] Work Phone: [phone] Pulse (Heart Rate) 53 /min Invalid Interpretation Code [facility] Work Phone: [phone] Pulse (Heart Rate) 439 ms Invalid Interpretation Code [facility] Work Phone: [phone] QRS Duration 146 ms Invalid Interpretation Code [facility] Work Phone: [phone] QT Interval new path ms Invalid Interpretation Code [facility] Work Phone: [phone] T Beggs 31 deg Invalid Interpretation Code [facility] Work Phone: [phone] Office Visiton 02-16-2012 Tobacco smoking status NHIS former smoker Invalid Interpretation Code [facility] Work Phone: [phone] Tobacco use CPHS former smoker Invalid Interpretation Code [facility] Work Phone: [phone] Vital Signs Date Time Vital Sign Value Performing Clinician Facility 01-12-2025 19:00-0400 Diastolic blood pressure 77 mm[Hg] Dr. Brayden Balderrama MD Work Phone: [facility] [place] 01-12-2025 19:00-0400 Heart rate 68 /min Dr. Brayden Balderrama MD Work Phone: [facility] [place] 01-12-2025 19:00-0400 SaO2% (BldA) [Mass fraction] 98 % Dr. Brayden Balderrama MD Work Phone: [facility] [place] 01-12-2025 19:00-0400 Systolic blood pressure 142 mm[Hg] Dr. Brayden Balderrama MD Work Phone: [facility] [place] 01-12-2025 18:00-0400 Respiratory rate 18 /min Dr. Brayden Balderrama MD Work Phone: [facility] [place] 01-12-2025 13:14-0400 Body temperature 96 [degF] Dr. Brayden Balderrama MD Work Phone: [facility] [place] 01-12-2025 13:07-0400 Body height 177.[address] Brayden Balderrama MD Work Phone: [phone] [address] 01-12-2025 13:07-0400 Body mass index (BMI) [Ratio] 23 kg/m2 Dr. Brayden Balderrama MD Work Phone: [phone] [address] 01-12-2025 13:07-0400 Body weight 72.[address] Brayden Balderrama MD Work Phone: 1(177)718-685722 [place] [address] 01-04-2025 16:35-0400 Body temperature 97.6 [degF] Dr. Brayden Balderrama MD Work Phone: 7(951)017-189122 [place] [address] 01-04-2025 16:35-0400 Diastolic blood pressure 71 mm[Hg] Dr. Brayden Balderrama MD Work Phone: 6(836)076-146943 [address] 01-04-2025 16:35-0400 Heart rate 62 /min Dr. Brayden Balderrama MD Work Phone: 8(563)106-489743 [address] 01-04-2025 16:35-0400 Respiratory rate 17 /min Dr. Brayden Balderrama MD Work Phone: 1(682)165-715656 [place] [address] 01-04-2025 16:35-0400 SaO2% (BldA) [Mass fraction] 98 % Dr. Brayden Balderrama MD Work Phone: 0(961)926-383056 [place] [address] 01-04-2025 16:35-0400 Systolic blood pressure 113 mm[Hg] Dr. Brayden Balderrama MD Work Phone: 1(322)227-388356 [place] [address] 01-04-2025 12:54-0400 Body height 177.[address] Brayden Balderrama MD Work Phone: 6(333)816-110043 [address] 01-04-2025 12:54-0400 Body mass index (BMI) [Ratio] 23.1 kg/m2 Dr. Brayden Balderrama MD Work Phone: [facility] 01-04-2025 12:54-0400 Body weight 73.[address] Brayden Balderrama MD Work Phone: [facility] 12-24-2024 14:52-0500 Heart rate 78 /min CHANNING TURNER MD [facility] 12-24-2024 14:52-0500 Blood Pressure Cuff Size CHANNING TURNER MD [facility] 12-24-2024 14:52-0500 Blood Pressure Location CHANNING TURNER MD [facility] 12-24-2024 14:52-0500 Blood Pressure Method CHANNING TURNER MD [facility] 12-24-2024 14:52-0500 Body temperature 98.24 [degF] CHANNING TURNER MD [facility] 12-24-2024 14:52-0500 Diastolic Blood Pressure Non-Invasive 80 mm[Hg] CHANNING TURNER MD [facility] 12-24-2024 14:52-0500 Reason For Taking VItal Signs CHANNING TURNER MD [facility] 12-24-2024 14:52-0500 Respiratory rate 18 /min CHANNING TURNER MD [facility] 12-24-2024 14:52-0500 Systolic Blood Pressure Non-Invasive 138 mm[Hg] CHANNING TURNER MD [facility] 12-24-2024 11:13-0500 Heart rate 69 /min CHANNING TURNER MD [facility] 12-24-2024 11:13-0500 Body temperature 98.24 [degF] CHANNING TURNER MD [facility] 12-24-2024 11:13-0500 Diastolic Blood Pressure Non-Invasive 77 mm[Hg] CHANNING TURNER MD [address] [place] [address] 12-24-2024 11:13-0500 Mean blood pressure 95 mm[Hg] CHANINNG TURNER MD [address] [place] [address] 12-24-2024 11:13-0500 Reason For Taking VItal Signs CHANNING TURNER MD [address] [place] [address] 12-24-2024 11:13-0500 Respiratory rate 17 /min CHANNING TURNER MD [address] [place] [address] 12-24-2024 11:13-0500 Systolic Blood Pressure Non-Invasive 134 mm[Hg] CHANNING TURNER MD [address] [place] [address] 12-24-2024 09:28-0500 Heart rate 80 /min CHANNING TURNER MD [address] [place] [address] 12-24-2024 06:15-0500 Heart rate 72 /min CHANNING TURNER MD [address] [place] [address] 12-24-2024 06:14-0500 Diastolic Blood Pressure Non-Invasive 96 mm[Hg] CHANNING TURNER MD [address] [place] [address] 12-24-2024 06:14-0500 Mean blood pressure 114 mm[Hg] CHANNING TURNER MD [address] [place] [address] 12-24-2024 06:14-0500 Systolic Blood Pressure Non-Invasive 147 mm[Hg] CHANNING TURNER MD [address] [place] [address] 12-24-2024 06:14-0500 Body temperature 98.06 [degF] CHANNING TURNER MD [address] [place] [address] 12-24-2024 06:14-0500 Reason For Taking VItal Signs CHANNING TURNER MD [address] [place] [address] 12-24-2024 06:14-0500 Respiratory rate 17 /min CHANNING TURNER MD [address] [place] [address] 12-24-2024 00:03-0500 Blood Pressure Cuff Size CHANNING TURNER MD [address] 12-24-2024 00:03-0500 Blood Pressure Location CHANNING TURNER MD [address] 12-24-2024 00:03-0500 Blood Pressure Method CHANNING TURNER MD [address] [place] [address] 12-23-2024 22:19-0500 Blood Pressure Cuff Size CHANNING TURNER MD [address] 12-23-2024 22:19-0500 Blood Pressure Location CHANNING TURNER MD [address] 12-23-2024 22:19-0500 Blood Pressure Method CHANNING TURNER MD [address] [place] [address] 12-23-2024 22:18-0500 Mean blood pressure 111 mm[Hg] CHANNING TURNER MD [address] 12-23-2024 22:10-0500 Heart rate 84 /min CHANNING TURNER MD [address] 12-23-2024 19:30-0500 Heart rate 70 /min CHANNING TURNER MD [address] 12-20-2024 20:50-0500 Body height 177.8 cm CHANNING TURNER MD [address] [place] [address] 12-20-2024 20:50-0500 Body weight 78.6 kg CHANNING TURNER MD [address] [place] [address] 12-20-2024 20:50-0500 Body weight 24.86 kg/m2 CHANNING TURNER MD [address] 12-20-2024 18:30-0500 Diastolic blood pressure 72 mm[Hg] Dr. Brayden Balderrama MD Work Phone: [facility] 12-20-2024 18:30-0500 Heart rate 58 /min Dr. Brayden Balderrama MD Work Phone: [facility] 12-20-2024 18:30-0500 Respiratory rate 16 /min Dr. Brayden Balderrama MD Work Phone: [facility] 12-20-2024 18:30-0500 SaO2% (BldA) [Mass fraction] 97 % Dr. Brayden Balderrama MD Work Phone: [facility] 12-20-2024 18:30-0500 Systolic blood pressure 122 mm[Hg] Dr. Brayden Balderrama MD Work Phone: [facility] 12-20-2024 17:02-0500 Body temperature 98.7 [degF] Dr. Brayden Balderrama MD Work Phone: [facility] 12-20-2024 11:16-0500 Body mass index (BMI) [Ratio] 23.6 kg/m2 Dr. Brayden Balderrama MD Work Phone: [facility] 12-20-2024 11:16-0500 Body weight 74.[address] Brayden Balderrama MD Work Phone: [facility] 12-15-2024 17:05-0500 Diastolic Blood Pressure Non-Invasive 62 mm[Hg] NIKHIL ROSAS MD [address] 12-15-2024 17:05-0500 Heart rate 70 /min NIKHIL ROSAS MD [address] 12-15-2024 17:05-0500 Respiratory rate 16 /min NIKHIL ROSAS MD [facility] 12-15-2024 17:05-0500 Systolic Blood Pressure Non-Invasive 114 mm[Hg] NIKHIL ROASS MD [address] 12-15-2024 16:50-0500 Diastolic Blood Pressure Non-Invasive 80 mm[Hg] NIKHIL ROSAS MD [address] 12-15-2024 16:50-0500 Heart rate 70 /min NIKHLI ROSAS MD [address] 12-15-2024 16:50-0500 Respiratory rate 16 /min NIKHIL ROSAS MD [address] [place] [address] 12-15-2024 16:50-0500 Systolic Blood Pressure Non-Invasive 153 mm[Hg] NIHKIL ROSAS MD [address] [place] [address] 12-15-2024 16:35-0500 Diastolic Blood Pressure Non-Invasive 82 mm[Hg] NIKHIL ROSAS MD [address] [place] [address] 12-15-2024 16:35-0500 Heart rate 68 /min NIKHIL ROSAS MD [address] [place] [address] 12-15-2024 16:35-0500 Respiratory rate 16 /min NIKHIL ROSAS MD [address] [place] [address] 12-15-2024 16:35-0500 Systolic Blood Pressure Non-Invasive 132 mm[Hg] NIKHIL ROSAS MD [address] [place] [address] 12-15-2024 12:00-0500 Body height 177.8 cm NIKHIL ROSAS MD [address] [place] [address] 12-15-2024 12:00-0500 Body temperature 97.52 [degF] NIKHIL ROSAS MD [address] [place] [address] 12-15-2024 12:00-0500 Body weight 73.1 kg NIKHIL ROSAS MD [address] [place] [address] 10-06-2024 12:13-0500 Body temperature 98.1 [degF] Dr. Brayden Balderrama MD Work Phone: [facility] 10-06-2024 12:13-0500 Diastolic blood pressure 78 mm[Hg] Dr. Brayden Balderrama MD Work Phone: [facility] 10-06-2024 12:13-0500 Heart rate 77 /min Dr. Brayden Balderrama MD Work Phone: [facility] 10-06-2024 12:13-0500 Respiratory rate 18 /min Dr. Brayden Balderrama MD Work Phone: [facility] 10-06-2024 12:13-0500 SaO2% (BldA) [Mass fraction] 97 % Dr. Brayden Balderrama MD Work Phone: 7(159)251-680356 [place] [address] 10-06-2024 12:13-0500 Systolic blood pressure 132 mm[Hg] Dr. Brayden Balderrama MD Work Phone: 0(240)260-380022 [place] [address] 10-06-2024 07:38-0500 Body mass index (BMI) [Ratio] 23.7 kg/m2 Dr. Brayden Balderrama MD Work Phone: 5(472)937-834643 [address] 10-06-2024 07:38-0500 Body weight [address] Brayden Balderrama MD Work Phone: 1(062)176-940522 [place] [address] 07-20-2023 14:06-0400 Body height 177.[address] Brayden Balderrama Work Phone: 2(962)604-938722 [place] [address] 07-20-2023 14:06-0400 Body mass index (BMI) [Ratio] 22.9 kg/m2 Dr. Brayden Balderrama Work Phone: 3(756)256-816843 [address] 07-20-2023 14:06-0400 Body weight 72.[address] Brayden Balderrama Work Phone: 4(758)934-376322 [place] [address] 07-20-2023 14:06-0400 Diastolic blood pressure 76 mm[Hg] Dr. Brayden Balderrama Work Phone: 6(715)121-082922 [place] [address] 07-20-2023 14:06-0400 Heart rate 68 /min Dr. Brayden Balderrama Work Phone: 6(734)643-920243 [address] 07-20-2023 14:06-0400 Respiratory rate 16 /min Dr. Brayden Balderrama Work Phone: 6(657)992-547843 [address] 07-20-2023 14:06-0400 SaO2% (BldA) [Mass fraction] 99 % Dr. Brayden Balderrama Work Phone: 0(769)164-629456 [place] [address] 07-20-2023 14:06-0400 Systolic blood pressure 148 mm[Hg] Dr. Brayden Balderrama Work Phone: 9(446)693-508256 [place] [address] 05-17-2023 10:29-0400 Body weight 73.[address] Brayden Balderrama Work Phone: [facility] 05-17-2023 10:29-0400 Diastolic blood pressure 87 mm[Hg] Dr. Brayden Balderrama Work Phone: [facility] 05-17-2023 10:29-0400 Heart rate 54 /min Dr. Brayden Balderrama Work Phone: [facility] 05-17-2023 10:29-0400 Respiratory rate 16 /min Dr. Brayden Balderrama Work Phone: [facility] 05-17-2023 10:29-0400 Systolic blood pressure 181 mm[Hg] Dr. Brayden Balderrama Work Phone: [facility] 05-17-2023 08:12-0400 Body height 177.[address] Brayden Balderrama Work Phone: [facility] 02-18-2023 00:45-0400 Body temperature 98.8 [degF] Dr. Brayden Balderrama Work Phone: [facility] 02-18-2023 00:00-0400 Diastolic blood pressure 61 mm[Hg] Dr. Brayden Balderrama Work Phone: [facility] 02-18-2023 00:00-0400 Heart rate 84 /min Dr. Brayden Balderrama Work Phone: [facility] 02-18-2023 00:00-0400 Respiratory rate 20 /min Dr. Brayden Balderrama Work Phone: [facility] 02-18-2023 00:00-0400 SaO2% (BldA) [Mass fraction] 96 % Dr. Brayden Balderrama Work Phone: [facility] 02-18-2023 00:00-0400 Systolic blood pressure 129 mm[Hg] Dr. Brayden Balderrama Work Phone: [facility] 02-17-2023 21:50-0400 Body height 177.[address] Brayden Balderrama Work Phone: [facility] 02-17-2023 21:50-0400 Body mass index (BMI) [Ratio] 24.5 kg/m2 Dr. Brayden Balderrama Work Phone: [facility] 02-17-2023 21:50-0400 Body weight 77.[address] Brayden Balderrama Work Phone: [facility] 10-24-2022 08:38-0500 Body mass index (BMI) [Ratio] 23.8 kg/m2 Dr. Brayden Balderrama Work Phone: [facility] 10-24-2022 08:38-0500 Body temperature 97.8 [degF] Dr. Brayden Balderrama Work Phone: [facility] 10-24-2022 08:38-0500 Body weight 77.[address] Brayden Balderrama Work Phone: [facility] 10-24-2022 08:38-0500 Diastolic blood pressure 80 mm[Hg] Dr. Brayden Balderrama Work Phone: [facility] 10-24-2022 08:38-0500 Heart rate 64 /min Dr. Brayden Balderrama Work Phone: [facility] 10-24-2022 08:38-0500 Respiratory rate 18 /min Dr. Brayden Balderrama Work Phone: [facility] 10-24-2022 08:38-0500 SaO2% (BldA) [Mass fraction] 97 % Dr. Brayden Balderrama Work Phone: [facility] 10-24-2022 08:38-0500 Systolic blood pressure 164 mm[Hg] Dr. Brayden Balderrama Work Phone: [facility] 05-12-2022 14:06-0400 Body temperature 98.3 [degF] Dr. Brayden Balderrama Work Phone: [facility] Work Phone: 05-12-2022 14:06-0400 Diastolic blood pressure 65 mm[Hg] Dr. Brayden Balderrama Work Phone: [facility] Work Phone: 05-12-2022 14:06-0400 Heart rate 64 /min Dr. Brayden Balderrama Work Phone: [facility] Work Phone: 05-12-2022 14:06-0400 Respiratory rate 18 /min Dr. Brayden Balderrama Work Phone: [facility] Work Phone: 05-12-2022 14:06-0400 SaO2% (BldA) [Mass fraction] 94 % Dr. Brayden Balderrama Work Phone: [facility] Work Phone: 05-12-2022 14:06-0400 Systolic blood pressure 133 mm[Hg] Dr. Brayden Balderrama Work Phone: [facility] Work Phone: 05-11-2022 11:25-0400 Body height 177.[address] Brayden Balderrama Work Phone: [facility] Work Phone: 05-11-2022 11:25-0400 Body weight [address] Brayden Balderrama Work Phone: [facility] Work Phone: 05-10-2022 12:00-0400 Inhaled oxygen flow rate 6 L/min Dr. Brayden Balderrama Work Phone: [facility] Work Phone: 05-10-2022 06:25-0400 Body mass index (BMI) [Ratio] 23.1 kg/m2 Dr. Brayden Balderrama Work Phone: [facility] Work Phone: 04-25-2022 10:18-0400 Body height 177.[address] Brayden Balderrama Work Phone: [facility] Work Phone: 04-25-2022 10:18-0400 Body mass index (BMI) [Ratio] 23.1 kg/m2 Dr. Brayden Balderrama Work Phone: [facility] Work Phone: 04-25-2022 10:18-0400 Body weight 73.[address] Brayden Balderrama Work Phone: [facility] Work Phone: 04-25-2022 10:18-0400 Diastolic blood pressure 76 mm[Hg] Dr. Brayden Balderrama Work Phone: [facility] Work Phone: 04-25-2022 10:18-0400 Heart rate 60 /min Dr. Brayden Balderrama Work Phone: [facility] Work Phone: 04-25-2022 10:18-0400 Respiratory rate 16 /min Dr. Brayden Balderrama Work Phone: [facility] Work Phone: 04-25-2022 10:18-0400 Systolic blood pressure 164 mm[Hg] Dr. Brayden Balderrama Work Phone: [facility] Work Phone: 08-07-2017 15:29-0400 BMI (Body Mass Index) 23.96 kg/m2 [facility] Work Phone: 08-07-2017 15:29-0400 BP Diastolic 74 mm[Hg] [facility] Work Phone: 08-07-2017 15:29-0400 BP Systolic 180 mm[Hg] [facility] Work Phone: 08-07-2017 15:29-0400 Height 177.8 cm [facility] Work Phone: 08-07-2017 15:29-0400 Pulse (Heart Rate) 58 /min [facility] Work Phone: 08-07-2017 15:29-0400 Respiratory Rate 16 /min [facility] Work Phone: 08-07-2017 15:29-0400 Weight 75.75 kg Niya Bull [facility] Work Phone: 07-18-2016 10:37-0400 BMI (Body Mass Index) 23.39 kg/m2 Samuel Deedee CAMPOS [facility] Work Phone: 07-18-2016 10:37-0400 BP Diastolic 70 mm[Hg] Samuel Mark [employer] [facility] Work Phone: 07-18-2016 10:37-0400 BP Systolic 120 mm[Hg] Samuel Mark [employer] [facility] Work Phone: 07-18-2016 10:37-0400 BSA (Body Surface Area) 1.92 m2 Samuel Mark [employer] [facility] Work Phone: 07-18-2016 10:37-0400 Pulse (Heart Rate) 68 /min Samuel Mark [employer] [facility] Work Phone: 07-18-2016 10:37-0400 Respiratory Rate 20 /min Samuel Mark [employer] [facility] Work Phone: 07-18-2016 10:37-0400 Weight 73.94 kg Samuel Deedee CAMPOS [facility] Work Phone: 02-16-2012 10:42-0400 Heart rate 53 /min Janelle Craft RN [facility] Work Phone: 02-16-2012 10:42-0400 Heart rate 439 ms Janelle Craft RN [facility] Work Phone: 02-16-2012 10:29-0400 Height 177.8 cm Samuel Deedee CAMPOS [facility] Work Phone: Encounters Encounter Date Encounter Type Care Provider Facility Start: 03-09-2025 End: 03-09-[address] Brayden Balderrama MD Work Phone: [facility] Work Phone: Start: 03-09-2025 End: 03-09-[address] Brayden Balderrama MD -Laboratory [facility] Start: 03-09-2025 End: 03-09-2025 ambulatory Brayden Balderrama Facility:[facility] Start: 01-12-2025 End: 01-12-2025 Emergency department patient visit Dr. Brayden Balderrama MD Work Phone: -Emergency Department Work Phone: Start: 01-04-2025 End: 01-04-2025 Emergency department patient visit Dr. Brayden Balderrama MD Work Phone: -Emergency Department Work Phone: Start: 12-20-2024 End: 12-24-2024 Evaluation and management of inpatient CHANNINGCamilo TURNER MD [facility] Start: 12-20-2024 End: 12-20-2024 Emergency department patient visit Dr. Anya Basilio DO -Emergency Department Work Phone: Start: 12-15-2024 End: 12-15-[address] BRAYDEN BALDERRAMA MD Facility:A Start: 12-15-2024 End: 12-15-2024 SAME DAY STAY NIKHIL ROSAS MD [facility] Start: 12-05-2024 End: 12-05-[address] BRAYDEN BALDERRAMA MD Facility:[facility] Start: 12-05-2024 End: 12-05-[address] ASHLEY OCHOA MD [facility] Start: 10-06-2024 End: 10-06-2024 Emergency department patient visit Dr. Samm Santos DO -Emergency Department Work Phone: Start: 09-08-2024 End: 09-08-[address] Brayden Balderrama MD -[facility] Start: 09-08-2024 End: 09-08-2024 ambulatory Brayden Balderrama Facility:[facility] Start: 09-06-2023 End: 09-06-[address] Brayden Balderrama Work Phone: [facility] Work Phone: Start: 09-06-2023 End: 09-06-[address] Brayden Balderrama Work Phone: [facility] Work Phone: Start: 08-10-2023 End: 08-11-[address] ASHLEY OCHOA MD Facility:B Start: 08-10-2023 End: 08-10-[address] ASHLEY OCHOA MD [facility] Start: 07-20-2023 End: 07-20-[address] Brayden Balderrama Work Phone: [facility] Work Phone: Start: 06-07-2023 End: 06-07-[address] Brayden Balderrama Work Phone: [facility] Work Phone: Start: 06-07-2023 End: 06-07-[address] Brayden Balderrama Work Phone: [facility]-Pulmonary Services/Neurology Work Phone: Start: 06-07-2023 End: 06-07-[address] Brayden Balderrama Work Phone: [facility] Work Phone: Start: 05-17-2023 End: 05-17-[address] Brayden Balderrama Work Phone: [facility] Work Phone: Start: 03-01-2023 End: 03-01-[address] Brayden Balderrama Work Phone: [facility] Start: 02-17-2023 End: 02-18-2023 Emergency department patient visit Dr. Brayden Balderrama Work Phone: [facility]-Emergency Department Start: 10-24-2022 End: 10-24-[address] Brayden Balderrama Work Phone: [facility] Start: 10-04-2022 End: 10-04-2022 ambulatory [facility] Work Phone: Start: 10-04-2022 End: 10-04-[address] [facility] Start: 05-22-2022 End: 05-22-[address] Brayden Balderrama Work Phone: [facility] Start: 05-10-2022 End: 05-12-2022 Evaluation and management of inpatient Dr. Brayden Balderrama Work Phone: [facility]-Medical Surgical 3 Start: 05-04-2022 Non-patient / Non-visit Dr. Brayden Balderrama Work Phone: [facility] Start: 05-04-2022 End: 05-04-[address] Brayden Balderrama Work Phone: [facility]-Cardiovascular Services Start: 04-25-[address] Brayden Balderrama Work Phone: [facility] Comment on above: Needs bladder remove d due to 10 cm cancerous lesion Start: 04-25-2022 End: 04-25-2022 Admission to same day surgery center Dr. Brayden Balderrama Work Phone: [facility] Start: 04-25-2022 End: 04-25-[address] Brayden Balderrama Work Phone: [facility] Start: 04-04-2022 End: 04-04-[address] [facility] Start: 12-08-2021 End: 12-08-[address] [facility] Procedures Date Procedure Procedure Detail Performing Clinician Start: 01-12-2025 Urnls dip stick/tablet reagent auto microscopy Dr. Brayden Balderrama MD Work Phone: Start: 01-12-2025 CT angiography of chest with contrast Dr. Brayden Balderrama MD Work Phone: Start: 01-12-2025 Plain chest X-ray Dr. Brayden Balderrama MD Work Phone: Start: 01-12-2025 D-dimer assay, quantitative Dr. Brayden wise MD Work Phone: Comment on above: D-Dimer ELEVATED (>0.49): Additional nathaniel dies and clinicalassessments are indicated to conclude diagnosis of:Deep Vein Thrombosis (DVT) or Pulmonary Embolism (PE)CRITICAL VALUE CALLED TO [place] FOREMAN01/12/25 1506 Jackie Bond.RESULTS READ BACK BY . Start: 01-12-[address] Brayden Balderrama MD Work Phone: Start: 01-04-2025 Plain chest X-ray Dr. Brayden Balderrama MD Work Phone: Start: 01-04-[address] Brayden Balderrama MD Work Phone: Start: 12-22-2024 Implantable pacemaker battery CHANNING GLORIA MD Comment on above: [employer] [id number] [place] SN# [id number] RA lead 4076-58 SN# [id number] RV lead 3830-69 SN# [id number] Start: 12-20-2024 Urnls dip stick/tablet reagent auto microscopy Dr. Brayden Balderrama MD Work Phone: Start: 12-20-[address] Brayden Balderrama MD Work Phone: Start: 12-20-2024 X-ray of chest, PA and lateral views Dr. Brayden Balderrama MD Work Phone: Start: 12-15-2024 Implantation of insertable loop recorder CHANNING TURNER MD Comment on above: explanted on 3/3/25 Implantation Loop Re shorty 12/15/2024 [employer] [id number] LINQ !! Serial [id number] Dr George oRsas Start: 10-06-2024 Plain chest X-ray Dr. Brayden Balderrama MD Work Phone: Start: 10-06-2024 CT of abdomen and pelvis without contrast Dr. Brayden Balderrama MD Work Phone: Start: 10-06-2024 CT of head without contrast Dr. Brayden wise MD Work Phone: Start: 08-10-[address] ASHLEY OCHOA MD Comment on above: No evidence of ischemia or infarction Normal LEFT ventricular ejection fraction. 1. EKG portion of Lexiscan stress test is negative for inducible ischemia. 2. Frequent PVCs resolved with lexiscan administration Start: 06-07-2023 Electrocardiographic monitor and recorder, device (physical object) DR ASHLEY OCHOA MD Comment on above: 48 hour Start: 02-17-2023 Plain chest X-ray Dr. Brayden Balderrama Work Phone: Start: 02-17-2023 SARS-CoV-2 & FLU Antigen (Rapid) Dr. Brayden Balderrama Work Phone: Start: 10-24-2022 X-ray of both feet Dr. Brayden Balderrama Work Phone: Start: 05-10-[address] Brayden Balderrama Work Phone: Start: 05-04-2022 CT of chest and abdomen Dr. Brayden Balderrama Work Phone: Start: 05-04-[address] ASHLEY OCHOA MD Comment on above: EF 60% Start: 08-07-[address] ASHLEY OCHOA MD Comment on above: EF 65% Start: 08-07-2017 End: 08-07-2017 KAIDEN Restrepo MD Start: 08-07-2017 End: 08-07-2017 Follow Up Appt 1 year Nixon Restrepo MD Start: 07-20-2017 End: 08-01-2017 *Hepatic Function Panel Jessie Bush Start: 07-20-2017 End: 08-01-2017 Lipid 1996 panel - Serum or Plasma Nixon Restrepo MD Start: 07-18-2016 End: 07-21-2016 *BMP Nixon Restrepo MD Start: 07-18-2016 End: 07-21-2016 *CBC with Differential Nixon Restrepo MD Start: 07-18-2016 End: 07-21-2016 *Hepatic Function Panel Jessie Bush Start: 07-18-2016 End: 07-18-2016 INTERNET SALES DIRECTOR Nixon Restrepo MD Start: 07-18-2016 End: 07-18-2016 Follow Up Appt 1 year Nixon Restrepo MD Start: 07-18-2016 End: 07-21-2016 Lipid 1996 panel - Serum or Plasma Nixon Restrepo MD Start: 07-17-2014 End: 07-17-2014 KAIDEN Restrepo MD Start: 07-17-2014 End: 07-17-2014 Follow Up Appt 1 year Nixon Restrepo MD Start: 11-11-2013 End: 11-14-2013 *KANNAN Restrepo MD Start: 11-11-2013 End: 11-11-2013 KAIDEN Restrepo MD Start: 11-11-2013 End: 11-14-2013 Echocardiography Nixon Restrepo MD Start: 11-11-2013 End: 11-11-2013 Follow Up Appt 6 months Jessie Bush Start: 11-11-2013 End: 11-14-2013 Magnesium [Mass/volume] in Serum or Plasma Nixon Restrepo MD Start: 11-11-2013 End: 11-14-2013 Natriuretic peptide B [Mass/volume] in Blood Nixon Restrepo MD Start: 11-11-2013 End: 11-14-2013 Thyrotropin [Units/volume] in Serum or Plasma Nixon Restrepo MD Start: 11-12-2012 End: 11-12-2012 Follow Up Appt 1 year Nixon Restrepo MD Start: 02-16-2012 End: 02-16-2012 Ecg routine ecg w/least 12 lds w/i&r Nixon Restrepo MD Start: 02-16-2012 End: 02-28-2012 Echocardiography Nixon Restrepo MD Start: 02-16-2012 End: 02-16-2012 Follow Up Appt 6 months Jessie Bush Start: 02-16-2012 End: 02-28-2012 Nuclear stress test -exercise Nixon Verdugo MD Start: 02-16-2012 End: 11-14-2013 Thyrotropin [Units/volume] in Serum or Plasma Nixon Restrepo MD Start: 02-15-2012 End: 07-18-2016 Preoperative cardiovascular examination PRE-OPERATIVE CARDIOVASCULAR EXAMINATION Janelle Craft RN History of appendectomy DR George OCHOA MD History of cholecystectomy Trevon OCHOA MD History of nephrectomy DR RA JEN OCHOA MD Nasal septoplasty DR ASHLEY OCHOA MD Plan of Treatment Date Care Activity Detail Author Start: 01-12-2025 [facility] Start: 01-12-2025 [facility] Start: 01-04-2025 End: 01-04-2025 [facility] Start: 12-20-2024 [facility] Start: 12-20-2024 [facility] Start: 10-06-2024 [facility] Start: 10-24-2022 Patient referral [facility] Work Phone: Start: 05-12-2022 Patient discharge [facility] Work Phone: Start: 05-10-2022 Following clinical pathway protocol [facility] Work Phone: Start: 05-10-2022 Provision of activity privileges [facility] Work Phone: Start: 05-10-2022 Vital signs measurements [facility] Work Phone: Start: 05-10-2022 Admission procedure [facility] Work Phone: Start: 08-13-2018 End: 08-13-2018 Appointment Appointment [facility] Work Phone: Start: 08-01-2018 End: 08-03-2017 *Hepatic Function Panel *Hepatic Function Panel [facility] Work Phone: Start: 08-01-2018 End: 08-03-2017 Lipid panel [AGGREGATE] *Lipid Profile CC PCP [facility] Work Phone: Start: 08-07-2017 End: 08-07-2017 Appointment Appointment [facility] Work Phone: Start: 08-07-2017 End: 08-07-2017 INTERNET SALES DIRECTOR INTERNET SALES DIRECTOR [facility] Work Phone: Start: 08-07-2017 End: 08-07-2017 Follow Up Appt 1 year Follow Up Appt 1 year [facility] Work Phone: Start: 07-20-2017 End: 08-01-2017 *Hepatic Function Panel *Hepatic Function Panel [facility] Work Phone: Start: 07-20-2017 End: 08-01-2017 Lipid panel [AGGREGATE] *Lipid Profile CC PCP [facility] Work Phone: Start: 07-18-2016 End: 07-21-2016 *BMP *BMP [facility] Work Phone: Start: 07-18-2016 End: 07-21-2016 *CBC with Differential *CBC with Differential [facility] Work Phone: Start: 07-18-2016 End: 07-21-2016 *Hepatic Function Panel *Hepatic Function Panel [facility] Work Phone: Start: 07-18-2016 End: 07-18-2016 INTERNET SALES DIRECTOR INTERNET SALES DIRECTOR [facility] Work Phone: Start: 07-18-2016 End: 07-18-2016 Follow Up Appt 1 year Follow Up Appt 1 year [facility] Work Phone: Start: 07-18-2016 End: 07-21-2016 Lipid panel [AGGREGATE] *Lipid Profile CC PCP [facility] Work Phone: Start: 07-17-2014 End: 07-17-2014 INTERNET SALES DIRECTOR INTERNET SALES DIRECTOR [facility] Work Phone: Start: 07-17-2014 End: 07-17-2014 Follow Up Appt 1 year Follow Up Appt 1 year [facility] Work Phone: Start: 11-11-2013 End: 11-14-2013 *BMP *BMP [facility] Work Phone: Start: 11-11-2013 End: 11-14-2013 BNP *Brain Natriuretic Peptide BNP [facility] Work Phone: Start: 11-11-2013 End: 11-11-2013 INTERNET SALES DIRECTOR INTERNET SALES DIRECTOR [facility] Work Phone: Start: 11-11-2013 End: 11-11-2013 Echocardiography Echocardiogram (complete) [facility] Work Phone: Start: 11-11-2013 End: 11-11-2013 Follow Up Appt 6 months Follow Up Appt 6 months [facility] Work Phone: Start: 11-11-2013 End: 11-14-2013 Magnesium *Magnesium [facility] Work Phone: Start: 11-11-2013 End: 11-14-2013 Thyroid stimulating hormone (TSH) *TSH [facility] Work Phone: Start: 11-12-2012 End: 11-12-2012 Follow Up Appt 1 year Follow Up Appt 1 year [facility] Work Phone: Start: 02-16-2012 End: 02-16-2012 Ecg routine ecg w/least 12 lds w/i&r EKG (In office) [facility] Work Phone: Start: 02-16-2012 End: 02-16-2012 Echocardiography Echocardiogram (complete) [facility] Work Phone: Start: 02-16-2012 End: 02-16-2012 Follow Up Appt 6 months Follow Up Appt 6 months [facility] Work Phone: Start: 02-16-2012 End: 02-16-2012 Nuclear stress test -exercise Nuclear stress test -exercise [facility] Work Phone: Start: 02-16-2012 End: 11-14-2013 Thyroid stimulating hormone (TSH) *TSH [facility] Work Phone: Basic metabolic 2008 panel with ionized calcium - Serum or Plasma [facility] Patient Education [facility] Work Phone: Patient referral [facility] Work Phone: Immunizations Immunization Date Immunization Notes Care Provider Fa agus 09-08-2024 influenza virus vacc ine, unspecified formulation CHANNING TURNER MD [facility] 09-06-2023 influenza virus vacc ine, unspecified formulation CHANNING TURNER MD [facility] 10-03-2021 influenza virus vacc ine, unspecified formulation CHANNING TURNER MD [facility] 07-27-2020 influenza virus vacc ine, unspecified formulation CHANNING TURNER MD [facility] 08-08-2018 influenza virus vacc ine, unspecified formulation CHANNING TURNER MD [facility] Payers Date Payer Category Payer Medicare [id number] 2024 Medicare [id number] 2024 Medicare [id number] 2024 Unknown [id number] 2024 Self-pay [id number] 2012 Unknown [id number] 1940 Unknown [id number] 2.16.8 [id number] 1940 Unknown [id number] 2.16.8 [id number] 1940 Unknown [id number] 2.16.8 [id number] 1940 Unknown [id number] 2.16.8 [id number] Medicare MEDICARE A ONLY [id number] Unknown [id number] 2.16.8 [id number] Unknown [id number] 2.16.8 [id number] Unknown [id number] 2.16.8 [id number] Unknown [id number] 2.16.8 [id number] Unknown [id number] 2.16.8 [id number] Unknown [id number] 2.16.8 [id number] Social History Date Type Detail Facility Start: 11-06-2019 End: 07-20-2023 Tobacco smoking status NHIS Unknown if ever smoked [facility] Start: 1940 Sex Assigned At Male [facility] Start: 07-20-2023 End: 02-25-2024 Tobacco smoking status Ex-smoker (finding) [facility] Comment on above: Quit smoking in 1964 No smoking Sexual Orientation [facility] Start: 04-16-2019 End: 01-12-2025 Sex Male (finding) [facility] Start: 01-04-2025 End: 01-12-2025 Tobacco smoking status NHIS Current some day smoker [facility] Medical Equipment Procedure Code Equipment Code Equipment Origin al Text Equipment Identifier Dates Robot-assisted simple nephrectomy CLIP,HEMA LABOY FDA Start: 05-10-2022 Robot-assisted simple nephrectomy CLIPHEMA LG FDA Start: 05-10-2022 Robot-assisted simple nephrectomy CLIPHEMDIANA LABOY FDA Start: 05-10-2022 Robot-assisted simple nephrectomy CLIPHEMDIANA LABOY FDA Start: 05-10-2022 Robot-assisted simple nephrectomy CLIPHEMDIANA LABOY FDA Start: 05-10-2022 Robot-assisted simple nephrectomy CLIP,HEMDIANA LABOY FDA Start: 05-10-2022 Robot-assisted simple nephrectomy CLIP,HEMDIANA LABOY FDA Start: 05-10-2022 Robot-assisted simple nephrectomy DRESSING,SURGICEL 4x8 FDA Start: 05-10-2022 Robot-assisted simple nephrectomy CLIPHEMDIANA LABOY FDA Start: 05-10-2022 Robot-assisted simple nephrectomy CLIP,HEMDIANA LABOY FDA Start: 05-10-2022 Robot-assisted simple nephrectomy CLIP,HEMDIANA LABOY FDA Start: 05-10-2022 Robot-assisted simple nephrectomy CLIP,HEMOLOCK LG WECK FDA Start: 05-10-2022 Robot-assisted simple nephrectomy CLIP,HEMOLOCK LG WECK FDA Start: 05-10-2022 Robot-assisted simple nephrectomy CLIP,HEMOLOCK LG WECK FDA Start: 05-10-2022 Robot-assisted simple nephrectomy CLIP,HEMOLOCK LG WECK FDA Start: 05-10-2022 Robot-assisted simple nephrectomy DRESSING,SURGICEL 4x8 FDA Start: 05-10-2022 Robot-assisted simple nephrectomy CLIP,HEMOLOCK LG WECK FDA Start: 05-10-2022 Robot-assisted simple nephrectomy CLIP,HEMOLOCK LG WECK FDA Start: 05-10-2022 Robot-assisted simple nephrectomy CLIP,HEMOLOCK LG NARENCK FDA Start: 05-10-2022 Robot-assisted simple nephrectomy CLIP,HEMOLOCK LG NARENCK FDA Start: 05-10-2022 Robot-assisted simple nephrectomy CLIP,HEMOLOCK LG NARENCK FDA Start: 05-10-2022 Robot-assisted simple nephrectomy CLIP,HEMOLOCK LG NARENCK FDA Start: 05-10-2022 Robot-assisted simple nephrectomy CLIP,HEMOLOCK LG NARENCK FDA Start: 05-10-2022 Robot-assisted simple nephrectomy DRESSING,SURGICEL 4x8 FDA Start: 05-10-2022 Robot-assisted simple nephrectomy CLIP,HEMOLOCK LG NARENCK FDA Start: 05-10-2022 Robot-assisted simple nephrectomy CLIP,HEMOLOCK LG NARENCK FDA Start: 05-10-2022 Robot-assisted simple nephrectomy CLIP,HEMOLOCK LG NARENCK FDA Start: 05-10-2022 Robot-assisted simple nephrectomy CLIP,HEMOLOCK LG NARENCK FDA Start: 05-10-2022 Robot-assisted simple nephrectomy CLIP,HEMOLOCK LG WECK FDA Start: 05-10-2022 Robot-assisted simple nephrectomy CLIP,HEMOLOCK LG NARENCK FDA Start: 05-10-2022 Robot-assisted simple nephrectomy CLIP,HEMOLOCK LG NARENCK FDA Start: 05-10-2022 Robot-assisted simple nephrectomy DRESSING,SURGICEL 4x8 FDA Start: 05-10-2022 Robot-assisted simple nephrectomy CLIP,HEMOLOCK LG BENOIT FDA Start: 05-10-2022 Robot-assisted simple nephrectomy CLIP,HEMOLOCK LG NARENCK FDA Start: 05-10-2022 Robot-assisted simple nephrectomy CLIP,HEMOLOCK LG WECK FDA Start: 05-10-2022 Robot-assisted simple nephrectomy CLIP,HEMOLOCK LG WECK FDA Start: 05-10-2022 Robot-assisted simple nephrectomy CLIP,HEMOLOCK LG WECK FDA Start: 05-10-2022 Robot-assisted simple nephrectomy CLIP,HEMOLOCK LG WECK FDA Start: 05-10-2022 Robot-assisted simple nephrectomy CLIP,HEMOLOCK LG WECK FDA Start: 05-10-2022 Robot-assisted simple nephrectomy DRESSING,SURGICEL 4x8 FDA Start: 05-10-2022 Robot-assisted simple nephrectomy CLIP,HEMOLOCK LG WECK FDA Start: 05-10-2022 Robot-assisted simple nephrectomy CLIP,HEMOLOCK LG WECK FDA Start: 05-10-2022 Robot-assisted simple nephrectomy CLIP,HEMOLOCK LG WECK FDA Start: 05-10-2022 Robot-assisted simple nephrectomy CLIP,HEMOLOCK LG WECK FDA Start: 05-10-2022 Robot-assisted simple nephrectomy CLIP,HEMOLOCK LG WECK FDA Start: 05-10-2022 Robot-assisted simple nephrectomy CLIP,HEMOLOCK LG WECK FDA Start: 05-10-2022 Robot-assisted simple nephrectomy CLIP,HEMOLOCK LG WECK FDA Start: 05-10-2022 Robot-assisted simple nephrectomy DRESSING,SURGICEL 4x8 FDA Start: 05-10-2022 Robot-assisted simple nephrectomy CLIP,HEMOLOCK LG WECK FDA Start: 05-10-2022 Robot-assisted simple nephrectomy CLIP,HEMOLOCK LG WECK FDA Start: 05-10-2022 Robot-assisted simple nephrectomy CLIP,HEMOLOCK LG WECK FDA Start: 05-10-2022 Robot-assisted simple nephrectomy CLIP,HEMOLOCK LG WECK FDA Start: 05-10-2022 Robot-assisted simple nephrectomy CLIP,HEMOLOCK LG NARENCK FDA Start: 05-10-2022 Robot-assisted simple nephrectomy CLIP,HEMOLOCK LG WECK FDA Start: 05-10-2022 Robot-assisted simple nephrectomy CLIP,HEMOLOCK LG WECK FDA Start: 05-10-2022 Robot-assisted simple nephrectomy DRESSING,SURGICEL 4x8 FDA Start: 05-10-2022 Robot-assisted simple nephrectomy CLIP,HEMOLOCK LG WECK FDA Start: 05-10-2022 Robot-assisted simple nephrectomy CLIP,HEMDIANA LABOY FDA Start: 05-10-2022 Robot-assisted simple nephrectomy CLIP,HEMDIANA LABOY FDA Start: 05-10-2022 Robot-assisted simple nephrectomy CLIP,HEMDIANA LABOY FDA Start: 05-10-2022 Robot-assisted simple nephrectomy CLIP,HEMDIANA LABOY FDA Start: 05-10-2022 Robot-assisted simple nephrectomy CLIP,HEMDIANA LABOY FDA Start: 05-10-2022 Robot-assisted simple nephrectomy CLIP,HEMDIANA LABOY FDA Start: 05-10-2022 Robot-assisted simple nephrectomy DRESSING,SURGICEL 4x8 FDA Start: 05-10-2022 Goals Date Patient Goal Desired Activity /State Functional Status Date Assessment Result Facility 12-24-2024 Functional Status Identified as high risk, Bed alert on, Room check performed [facility] 12-24-2024 Functional Status Independent [facility] 12-24-2024 Functional Status None [facility] 12-24-2024 Functional Status [facility] 12-24-2024 Functional Status [facility] 12-24-2024 Functional Status [facility] 12-23-2024 Functional Status [facility] 12-23-2024 Functional Status [facility] 12-23-2024 Functional Status Mod I [facility] 12-23-2024 Functional Status [facility] 12-23-2024 Functional Status Done [facility] 12-23-2024 Functional Status Done [facility] 12-22-2024 Functional Status [facility] 12-22-2024 Functional Status Feeding Assistance Setu p [facility] 12-22-2024 Functional Status [facility] 12-21-2024 Functional Status [facility] 12-20-2024 Functional Status N/A [facility] 12-15-2024 Functional Status Identified as high risk, Fall ID band on [facility] 05-12-2022 Functional status Up ad staci [facility] Work Phone: Mental Status Date Assessment Result Facility 01-12-2025 Cognitive function Level Of Cons ciousness Awake;Alert;Appropriate;Follow s Commands [facility] Work Phone: 01-04-2025 Cognitive function Level Of Cons ciousness Awake;Alert;Appropriate;Follow s Commands [facility] Work Phone: 12-24-2024 Mental Status Orientation Orie nted x 4, Forgetful, Follows simple commands [facility] 12-24-2024 Mental Status [facility] 12-24-2024 Mental Status [facility] 12-23-2024 Mental Status [facility] 12-22-2024 Mental Status [facility] 12-20-2024 Cognitive function Level Of Cons ciousness Awake;Alert;Appropriate;Follow s Commands [facility] Work Phone: 12-15-2024 Mental Status Orientation Oriented x 4 [facility] 12-15-2024 Mental Status [facility] 02-17-2023 Cognitive function Level Of Cons ciousness Awake;Alert;Appropriate;Follow s Commands [facility] Work Phone: 05-12-2022 Cognitive function Touch/Shaking [facility] Work Phone: Clinical Notes 02-17-2023 to 01-12-2025 Note Date & Type Note Facility 01-12-2025 Discharge summary [facility] 01-12-2025 Radiology Diagnostic study note [facility] Imaging Services [address], [place] [address] CTA Chest W/WO Contrast MR#: [id number] Acct: [id number] Name: MAGUI TORRES Rep #: [id number] : 1940 M 84 From: Edna Rees MD PCP: Dr. Brayden Balderrama MD Status: REG E R Study:CTA Chest W/WO Contrast Date of Exam: 01/12/25 Exam# [id number] Ordering Dr: Roger Mcgill DO EXAM: CT Angiography Chest Without and With Intravenous Contrast CLINICAL INDICATION: PE TECHNIQUE: Axial computed tomographic angiography images of the chest without and with intravenous contrast. This CT exam was performed using one or more of the following dose reduction techniques: automated exposure control, adjustment of the mA and/or kV according to patient size, and/or use of iterative reconstruction technique. MIP reconstructed images were created and reviewed. COMPARISON: No relevant prior studies available. FINDINGS: PULMONARY ARTERIES: Unremarkable. No pulmonary embolism. AORTA: Scattered calcified atherosclerotic disease of aorta. No thoracic aortic aneurysm. LUNGS AND PLEURAL SPACES: Lung emphysema/COPD. No mass. No consolidation. Nosignificant effusion. No pneumothorax. HEART: Unremarkable. No cardiomegaly. No significant pericardial effusion. No evidence of RV dysfunction. BONES/JOINTS: No acute fracture. No dislocation. SOFT TISSUES: Unremarkable. LYMPH NODES: Unremarkable. No enlarged lymph nodes. CT/CTA Chest W/WO Contrast IMPRESSION: No pulmonary embolism. Reading Location: [facility] CC: Dr. Roger Ambrosio DO; Dr. Brayden Balderrama MD ~ Glassblower: Signed [facility] 01-12-2025 Radiology Diagnostic study note [facility] Imaging Services [address] [place] [address] [id number] Chest 1 View (Portable) MR#: [id number] Acct: [id number] Name: MAGUI TORRES Rep #: [id number] : 1940 M 84 From: Edna Rees MD PCP: Dr. Brayden Balderrama MD Status: REG E R Study:Chest 1 View (Portable) Date of Exam: 01/12/25 Exam# [id number] Ordering Dr: Rgoer Mcgill DO EXAM: XR Chest, 1 View CLINICAL INDICATION: SYNCOPE TECHNIQUE: Frontal view of the chest. COMPARISON: No relevant prior studies available. FINDINGS: LUNGS AND PLEURAL SPACES: Pulmonary venous congestion. No consolidation. No pneumothorax. HEART: Unremarkable. No cardiomegaly. MEDIASTINUM: Unremarkable. Normal mediastinal contour. BONES/JOINTS: Unremarkable. No acute fracture. TUBES, LINES AND DEVICES: Left-sided cardiac pacemaker. RAD/Chest 1 View (Portable) IMPRESSION: Pulmonary venous congestion. Reading Location: [facility] CC: Dr. Roger Ambrosio DO; Dr. Brayden Balderrama MD ~ Glassblower: Signed [facility] 01-12-2025 Discharge summary Note Date/Time January 12, 2025 7:06pm [facility] Medical Records Department [address] [place] [address] Emergency Department Summary 01/12/25 MR#: [id number] Acct: [id number] Name: MAGUI TORRES Rep #:[id number] : 1940 84 From: Roger milligan DO PCP: Dr. Brayden Balderrama MD Status:REG E R Location: ED ADDENDUM by Dr. Xavier Zhao MD on 01/12/25 at 1906 Correction needs to be made to the chart as I had documented that the initial troponin was 19 but was actually 23. The repeat was 21 at 2 hours. Dispositionremains discharged home in stable condition. 01/12/251905<Electronically signed by Xavier Zhao MD> Cosigner Signature (if applicable): cc: Dr. Brayden Balderrama MD ~* Signed ADDENDUM by Dr. Xavier Zhao MD on 01/12/25 at 1905 Patient endorsed to me by Dr. Pastrana to check a second troponin on this patient that had a syncopal episode. He has had pacemaker inserted for his syncopal episode but he still experiences them. Initial troponin obtained and reviewed and was 19 with repeat being 21. At this point in time, I feel he can be discharged to follow-up with cardiology at [facility] as arranged by Dr. Pastrana. Disposition is discharged home in stable condition. 01/12/251904<Electronically signed by Xavier Zhao MD> Cosigner Signature (if applicable): cc: Dr. Brayden Balderrama MD ~* Signed HPI History of Present Illness Chief Complaint: Syncope Narrative Narrative: Chief complaint and HPI: Syncope. 84-year-old male with history of kidney cancer with nephrectomy in 2021, recurrent syncope, proximal atrial fibrillationnot on anticoagulation, HTN, HLD presents for evaluation of syncope. Patient states that he has been having recurrent syncopal episodes. On December 22/2025 he received a [employer] pacemaker at [facility]. This was due to syncopal episode and loop recorder showing a pause of 3 seconds. Since placement patientis still having intermittent syncope. On chart review, his last syncopal episodewas 01/04 in which she was seen in our emergency department. Ultimately discharged home. Patient states that his home nurse was at his house when he needed to have a bowel movement. He states he was holding it in the chair when he felt lightheaded and as if he was going to pass out. He states he then had acouple second episode of syncope. He denies any fever, chills, shortness of breath, abdominal pain, nausea, vomiting, dysuria. States that he feels like heis at his normal state of health currently. Patient is on metoprolol 12.5 mg daily as well as mexiletine 200 mg twice daily. Review of systems: See HPI Medications: As listed on the chart Allergies: As listed on the chart PFSH: Per chart Vital signs: As listed on the chart. Reviewed. Physical exam: Gen: A&O x3, NAD Head: Normocephalic, atraumatic Eyes: No sclera icterus, conjunctiva clear ENT: Moist mucous membranes Neck: Trachea midline, No JVD CV: RRR, no murmurs, no peripheral edema Resp: Lungs CTA BL, no w/r/c GI: Abd soft, non-distended, non-tender, no r/r/g Musc: Full ROM, no deformity Skin: Warm, dry Neuro: Alert, oriented, grossly intact, sensation intact Psych: Cooperative, appropriate mood and affect [facility] Medical History (Updated 01/12/25 @ 00:02 by Jesus Fisher) Cardiac defibrillator in place Hypothyroidism Kidney stones Kidney disease Former smoker Atrial fibrillation Acute hemorrhoid Kidney disease Loss of hearing Wears glasses Cancer Thyroid disease Arthritis Prostate disease History of renal disease Back pain Injury of head and neck Dietary restriction History of diverticulitis Heartburn Chewing tobacco nicotine dependence History of pain when walking Hypertension History of stress test Cardiology follow-up encounter History of echocardiogram Chest pain TIA (transient ischemic attack) GI bleed Paroxysmal atrial fibrillation Essential (primary) hypertension Hyperlipidemia Home Medications ?Medication ?Instructions ?Recorded ?Last Taken ?Type multivitamin 1 tab PO DAILY 07/26/18 Unkn own History saw palmetto 1,000 mg capsule 1,000 mg PO DAILY Unknown History cholecalciferol (vitamin D3) 25 50 mcg PO DAILY Unknown History mcg/drop (1,000 unit/drop) oral drops levothyroxine 50 mcg tablet 50 mcg PO DAILY 04/25/22 0 05/10/22 04:30 History magnesium 200 mg tablet 200 mg PO QWEEK 05/17/23 Unk nown History aspirin 81 mg capsule 81 mg PO DAILY 12/20/24 Unkn own History hydrochlorothiazide 12.5 mg capsule 12.5 mg PO DAILY 0 12/20/24 Unknown History metoprolol succinate 25 mg 12.5 mg PO DAILY 12/20/24 U nknown History tablet,extended release 24 hr mexiletine 200 mg capsule 200 mg PO Q8H 12/20/24 Unkno wn History Allergy/AdvReac Type Severity Reaction Status Date / Time animal dander Allergy unknown Verified 12/20/24 11:25 mold Allergy unknown Verified 12/20/24 11:25 pollen extracts Allergy unknown Verified 12/20/24 11:25 Milk Containing Products AdvReac Mild Abd Verified 12/20/24 15:51 (Dairy) cramps/diarrhea amoxicillin AdvReac Nausea/vomi Verified 12/20/24 11:25 ting lisinopril AdvReac Headaches Verified 12/20/24 11:25 Poultry AdvReac Abd Verified 12/20/24 15:51 cramps/diarrhea Family History Father Myocardial infarction from MS age 56 Mother Heart disease CHF Grandfather Myocardial infarction from MS age 53 Surgical History History of cholecystectomy History of nephrectomy Hx of colonoscopy Hx of hand surgery Hx laparoscopic cholecystectomy History of nasal septoplasty History of appendectomy Social History Smoking Status: Current some day smoker tobacco type: smokeless tobacco Smokeless tobacco user: chewing tobacco how long ago did patient quit smokin alcohol intake: never substance use type: does not use caffeine: Yes Type: coffee Number of servings: 2, tea Number of servings: 2 andother EXAM Physical Exam Const Vital Signs: 01/12/25 13:07 01/12/25 13:14 01/12/25 14:06 Temperature 97.4 F L 96.0 F L Temperature Source Axillary Axillary Pulse Rate 103 H 85 Pulse Rate [Lying] Pulse Rate [Sitting (for 1 minute prior to obtaining)] Pulse Rate [Standing (for 1 minute prior to obtaining)] Respiratory Rate 16 19 H Respiratory Effort Normal Non-Labored Respiratory Pattern Normal Blood Pressure 110/80 104/66 Blood Pressure [Lying] Blood Pressure [Sitting (for 1 minute prior to obtaining)] Blood Pressure [Standing (for 1 minute prior to obtaining)] Blood Pressure Mean 90 78 Blood Pressure Mean [Lying] Blood Pressure Mean [Sitting (for 1 minute prior to obtaining)] Blood Pressure Mean [Standing (for 1 minute prior to obtaining)] Pulse Ox 99 98 Oxygen Delivery Method Room Air Room Air 01/12/25 14:06 01/12/25 15:00 01/12/25 16:00 Temperature Temperature Source Pulse Rate 82 83 92 Pulse Rate [Lying] Pulse Rate [Sitting (for 1 minute prior to obtaining)] Pulse Rate [Standing (for 1 minute prior to obtaining)] Respiratory Rate 16 18 18 Respiratory Effort Respiratory Pattern Blood Pressure 132/72 H 127/86 H 117/77 Blood Pressure [Lying] Blood Pressure [Sitting (for 1 minute prior to obtaining)] Blood Pressure [Standing (for 1 minute prior to obtaining)] Blood Pressure Mean 92 99 90 Blood Pressure Mean [Lying] Blood Pressure Mean [Sitting (for 1 minute prior to obtaining)] Blood Pressure Mean [Standing (for 1 minute prior to obtaining)] Pulse Ox 96 96 96 Oxygen Delivery Method Room Air Room Air Room Air 01/12/25 16:32 01/12/25 16:54 01/12/25 18:00 Temperature Temperature Source Pulse Rate 122 H 67 Pulse Rate [Lying] 90 Pulse Rate [Sitting (for 1 minute prior to obtaining)] 89 Pulse Rate [Standing (for 1 minute prior to obtaining)] 73 Respiratory Rate 18 18 Respiratory Effort Respiratory Pattern Blood Pressure 104/73 124/64 H Blood Pressure [Lying] 120/76 Blood Pressure [Sitting (for 1 minute prior to obtaining)] 136/67 H Blood Pressure [Standing (for 1 minute prior to obtaining)] 119/79 Blood Pressure Mean 83 84 Blood Pressure Mean [Lying] 90 Blood Pressure Mean [Sitting (for 1 minute prior to obtaining)] 90 Blood Pressure Mean [Standing (for 1 minute prior to obtaining)] 92 Pulse Ox 96 98 Oxygen Delivery Method Room Air Room Air MDM MDM MDM Narrative Medical decision making narrative: 84-year-old male with history of kidney cancer with nephrectomy in 2021, recurrent syncope, proximal atrial fibrillation not on anticoagulation, HTN, HLDpresents for evaluation of syncope. Differential diagnosis includes but is not limited to failed pacemaker, pacemaker failed to capture, electrolyte abnormality, ACS, PE, arrhythmia, UTI. Patient is currently asymptomatic. He is mildly tachycardic otherwise vitals are stable. NS bolus ordered. Cardiac workup ordered. Medtronic pacemaker was interrogated without any reported arrhythmias. Orthostatic vital signs negative. CBC without leukocytosis or anemia. INR 1.2. BMP with baseline CKD. Patient is D-dimer is elevated at 1.66. Cannot rule out PE therefore CTA ordered. Will order another NS bolus to flush contrast. BNP unremarkable. Troponin 23. This is down from 01/04 which was 28. Will get delta. CTA chest negative for PE. 2-hour troponin and UA currently pending. Given that patient follows with cardiology at [facility] I did contact them. I spoke with Dr. Dean. Recommendation is if 2-hour troponin unremarkable okay to discharge home. They will have follow-up with the patient in their office. UA negative for UTI. On reevaluation, patient ambulated without any syncope. Asymptomatic. Vitals stable. Delta troponin still pending. We have called lab multiple times about the 2-hour troponin they originally could not find it. They then found it and now it is running. There has also been issues with labs all day with the reader not working which was the original delay in labs. Plan will be for discharge home if 2-hour troponin negative. Patient was signed out to oncoming physician. He will await result. Patient was updated of all results thus far and the plan. He will be given outpatient order to have creatinine repeated in a couple days given that he received contrast. Follow-up with cardiology and PCP. He confirmed understanding of the plan. Patient was educated to drink plenty of fluids over the next several days as well. Return precautions explained. EKG: Interpreted by me/EM physician: Atrial sensed ventricular paced rhythm. Heart rate 63. Diagnostic: Interpreted by me/EM physician: Chest x-ray without pneumonia, large effusion effusion, cardiomegaly, pneumothorax Impression: 1. Recurrent syncope 2. History of pacemaker Lab Data Labs: Laboratory Results - last 24 hr 01/12/25 01/12/25 14:39 17:39 WBC 10.9 RBC 4.60 Hgb 14.1 Hct 40.9 MCV 88.9 MCH 30.7 MCHC 34.5 RDW Std Deviation 44.0 H RDW Coeff of Jd 13.5 Plt Count 239 MPV 9.8 Immature Gran % (Auto) 0.800 Neut % (Auto) 73.1 H Lymph % (Auto) 12.2 L [place] % (Auto) 10.3 H Eos % (Auto) 2.8 Baso % (Auto) 0.8 Absolute Neuts (auto) 8.0 H Absolute Lymphs (auto) 1.33 Nucleated RBC % 0 PT 15.2 H INR 1.2 APTT 28.5 D-Dimer Quant (PE/DVT) 1.66 H* Sodium 137 Potassium 4.3 Chloride 102 Carbon Dioxide 22.2 Anion Gap 12 BUN 28 H Creatinine 1.74 H Estim Creat Clear Calc 33.75 L Est GFR (MDRD) Non-Af 39 L BUN/Creatinine Ratio 16.0 Glucose 99 Calcium 9.2 Troponin T High Sens 23 H D NT pro BNP II 157 Urine Color Yellow Urine Clarity Clear Urine pH 7.0 Ur Specific Adrian 1.005 Urine Protein 30 H Urine Glucose (UA) Normal Urine Ketones Negative Urine Occult Blood Negative Urine Nitrite Negative Urine Bilirubin Negative Urine Urobilinogen 4 H Ur Leukocyte Esterase Negative Urine RBC 0 SEEN Urine WBC 0-5 SEEN Ur Squamous Epith Cells 0 SEEN Urine Bacteria 0 SEEN Urine Mucus 0 SEEN Radiography Diagnostic Testing: Clinical Impression(s) from Imaging Studies Chest X-Ray 01/12/25 15:06 IMPRESSION: Pulmonary venous congestion. Reading Location: [facility] Chest CTA 01/12/25 16:10 IMPRESSION: No pulmonary embolism. Reading Location: [facility] Discharge Plan Triage Chief Complaint: Syncope ED Provider: Roger Ambrosio Dx/Rx/DC Orders Prescriptions: No Action saw palmetto 1,000 mg capsule 1,000 mg PO DAILY multivitamin tablet 1 tab PO DAILY cholecalciferol (vitamin D3) 25 mcg/drop ( 1,000 unit/drop) drops 50 mcg PO DAILY levothyroxine 50 mcg tablet 50 mcg PO DAILY Patient Comments: take 1 tablet by mouth every morning magnesium 200 mg tablet 200 mg PO QWEEK metoprolol succinate 25 mg tablet extended release 24 hr 12.5 mg PO DAILY hydrochlorothiazide 12.5 mg capsule 12.5 mg PO DAILY mexiletine 200 mg capsule 200 mg PO Q8H aspirin 81 mg capsule 81 mg PO DAILY Primary Care Provider: Brayden Balderrama Referrals: Brayden Balderrama MD [Primary Care Provider] - Print Language: Venezuelan What to do if you have Problems For any increased pain, shortness of breath, bleeding, nausea or vomiting, chestpain, or any unexpected problems, contact your Primary Care Provider. Call [facility] ([phone]) or report to the closest Emergency Room. Call 911 if necessary. 01/12/251842 <Electronically signed by Roger Ambrosio DO> Cosigner Signature (if applicable): CC: Dr. Brayden Balderrama MD ~ Signed [facility] Work Phone: [phone] Radiology Diagnostic study note [facility] Imaging Services [address] [place] [id number] Chest 1 View (Portable) MR#: [id number] Acct: [id number] Name: MAGUI TORRES Rep #: [id number] : 1940 M 84 From: Olvin Zabala DO PCP: Dr. Brayden Balderrama MD Status: PRE E R Study:Chest 1 View (Portable) Date of Exam: 01/04/25 Exam# [id number] Ordering Dr: Brayden Marquez BOOK COVERERJose Luis PROCEDURE: Chest radiograph REASON FOR EXAM: CHEST PAIN TECHNIQUE: Frontal view of the chest. COMPARISON: None. FINDINGS: Left cardiac pacer in place. Cardiomediastinal silhouette is within normal limits. Lungs are clear.No sizable pneumothorax. RAD/Chest 1 View (Portable) IMPRESSION: No acute airspace abnormality. Reading Location: [facility] CC: DENIZ Mcguire; Dr. Brayden Balderrama MD ~ Glassblower: Signed [facility]03-05-2025 Discharge summary Date of Service 12/24/2024 12:38:00 Discharge Diagnosis Syncopal episode secondary to sinus pauses Right bundle branch block History of frequent PVCs, on mexiletine Isolated atrial fibrillation event currently not on anticoagulation Hypertension Hypothyroidism CKD (Baseline Cr 1.7-1.8) Hospital Course 84-year-old male with history of frequent PVCs (14% burden--> 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 Patient has been having these recurrent syncopal episodes for some time now where he will usually be doing something nonexertional, get a sensation that he is about to pass out, before experiencing syncope. Patient recently had a EP study done on December 15 and which demonstrated acceptable His-Purkinje conduction with a HV of 60 ms. Loop recorder was placed. Today he had gone to have lunch with his when he again experienced a syncopal episode. EMS was called, and interrogation of loop recorder demonstrated a 3-second sinus pause that correlated with the event. Workup at [place] was largely unremarkable however it was noted that he was having episodesof bradycardia into the high 40s. Patient had a rapid response here for brief unresponsiveness, with heart rates in the low 30s requiring atropine. EP consulted. Patient underwent successful pacemaker placement without complication. Postprocedural chest x-ray shows no pneumothorax. Patient is stable for discharge with EP follow-up. Of note, hospitalist medicine was consulted for bright red blood per rectum. The attributed this tohemorrhoids. Follow-up with PCP. Allergies Animal Dander unknown Mold unknown Pollen unknown amoxicillin nausea / vomitting lisinopril Headaches penicillin Syncope, Vomit, Nausea Consults Consult to Case Management/Social Service (Consult to Case Management) - Ordered -- 12/23/24 16:29:54 EST Consult to Case Management/Social Service (Consult to Case Management) - Ordered -- 12/23/24 17:24:19 EST Consult to Physician - Ordered -- 12/23/24 17:57:00 EST, HAWA PERALES DO, Routine, Pt awaiting rehab placement, noted bright red blood in diaper without other symptoms Imaging Results and Diagnostics XR Chest 2 Views Result Date: December 23, 2024 Verified By: SCOUT DAWSON MD CLINICAL STATEMENT: IMPRESSION: Stable appearing left-sided dual lead cardiac pacer device. No evidence ofpneumothorax.Interval improvement in the left-sided trace pleural effusion when comparedto yesterday's exam. I have personally reviewed the images of this examination and agree with theresident's findings and interpretation. XR Chest 1 View Result Date: December 22, 2024 Verified By: NIKHIL FIELD DO CLINICAL STATEMENT: IMPRESSION: Suspect minimal trace left pleural effusion. Minimal overlying left basilarsubsegmentalatelectasis. Left-sided pacemaker with leads projecting over the right atrium and rightventricle. No pneumothorax. I have personally reviewed the images of this examination and agree with theresident's findings and interpretation. Physical Exam Vitals and Measurements T: 36.8 C (Oral) TMIN: 36.6 C (Oral) TMAX: 36.9 C (Oral) HR: 69 (Monitored) RR: 17 BP: 134/77 SpO2:96% Weight Dosing Weight: 78.6 kg (12/20/24) General: AAOX3, NAD HEENT: Anicteric sclera, MMM Neck: Trachea midline, no JVD appreciated CVS: RRR, normal S1/S2, no murmurs/rubs/gallops Lung: CTAB, no wheezes/rhonchi/rales Abd: Soft, NT/ND Extrem: WWP, no LE edema Skin: Warm, Intact Neuro: AAOX3, spontaneous movement of all extremities Psych: Appropriate mood & affect Code Status Code Status - Ordered -- 12/21/24 19:38:00 EST, Full Code, Constant Order Admission Date 12/20/2024 20:12:00 Discharge Date 12/24/2024 12:39:09 Medications Unchanged chlorpheniramineby mouth. ergocalciferol (Vitamin D2 50 mcg (2000 intl units) oral capsule)1 cap by mouth once a day. with food. herbal/nutritional product (saw palmetto oral capsule) hydroCHLOROthiazide (hydroCHLOROthiazide 12.5 mg oral capsule)1 cap by mouth every day. Refills: 1. levothyroxine (levothyroxine 50 mcg (0.05 mg) oral tablet)take 1 tablet by mouth every morning. magnesium glycinate (magnesium glycinate 200 mg oral tablet)0.5 tab(s) by mouth. metoprolol (Toprol-XL 25 mg oral tablet, extended release)0.5 tab(s) by mouth once a day for 90 Days. Refills: 3. mexiletine (mexiletine 200 mg oral capsule)1 cap by mouth every 8 hours for 30 Days. Refills: 3. multivitamin with minerals (Centrum Silver oral tablet)1 tab(s) by mouth once a day. potassium chloride (potassium chloride 99 mg oral tablet)1 tab(s) by mouth twice a week. Follow Up Follow Up with IRA MUKHERJEE MD, Surgery When:Within 3-7 days Where:[address] [facility] [address] [place] [address]- [phone] Additional Information: general surgeon who can help with your hemorrhoids Follow Up with Readmission Risk Score Additional Information: 10 Follow Up with BRAYDEN BALDERRAMA When:Within 1-2 days Where:[address] [facility] [address] [place] [address] [phone] Business (1) Follow Up with [facility] When:01/06/2025 01:00 PM EDT Where:[address] [facility] [id number] [place] [address]- [phone] Additional Information: This is your incision check in the Device Clinic. Follow Up with [facility] When:03/26/2025 10:30 AM EDT Where:[address] [facility] [id number] [place] [address]- [phone] Additional Information: This is your hospital follow up in the Device Clinic. Follow Up Appointments No qualifying data available. Follow Up Labs/Studies Discharge Labs No Follow-up Labs Discharge Studies No Follow-up Studies Discharge Diet Discharge Diet - Ordered -- Type of Diet: Cardiac, 12/24/24 12:37:00 EST Discharge Activity Discharge Activity - Ordered -- Lifting Restricted less than 5 pounds, 12/24/24 12:37:00 EST Condition on Discharge good Discharge Disposition home [1] Discharge Summary with PE; WINNIE GAR DO 12/23/2024 12:08 EST Digitally Signed by WINNIE GAR DO on 12/24/2024 12:39 PM [id number] Discharge instructions Patient Education 12/24/2024 15:29:25 Syncope, [id number] Syncope Syncope is when you pass out (faint) for a short time. It is caused by a sudden decrease in blood flow to the brain. Signs that you may be about to pass out include: Feeling dizzy or light-headed. Feeling sick to your stomach (nauseous). Seeing all white or all black. Having cold, clammy skin. If you pass out, get help right away. Call your local emergency services (911 in the [place] Do not drive yourself to the hospital. Follow these instructions at home: Watch for any changes in your symptoms. Take these actions to stay safe and help with your symptoms: Lifestyle Do not drive, use machinery, or play sports until your doctor says it is okay. Do not drink alcohol. Do not use any products that contain nicotine or tobacco, such as cigarettes and e-cigarettes. If you need help quitting, ask your doctor. Drink enough fluid to keep your pee (urine) pale yellow. General instructions Take [id number]-ahlqewk and prescription medicines only as told by your doctor. If you are taking blood pressure or heart medicine, sit up and stand up slowly. Spend a few minutesgetting ready to sit and then stand. This can help you feel less dizzy. Have someone stay with you until you feel stable. If you start to feel like you might pass out, lie down right away and raise (elevate) your feet above the level of your heart. Breathe deeply and steadily. Wait until all of the symptoms are gone. Keep all follow-up visits as told by your doctor. This is important. Get help right away if: You have a very bad headache. You pass out once or more than once. You have pain in your chest, belly, or back. You have a very fast or uneven heartbeat (palpitations). It hurts to breathe. You are bleeding from your mouth or your bottom (rectum). You have black or tarry poop (stool). You have jerky movements that you cannot control (seizure). You are confused. You have trouble walking. You are very weak. You have vision problems. These symptoms may be an emergency. Do not wait to see if the symptoms will go away. Get medical help right away. Call your local emergency services (911 in the [place] Do not drive yourself to the hospital. Summary Syncope is when you pass out (faint) for a short time. It is caused by a sudden decrease in blood flow to the brain. Signs that you may be about to faint include feeling dizzy, light-headed, or sick to your stomach, seeing all white or all black, or having cold, clammy skin. If you start to feel like you might pass out, lie down right away and raise (elevate) your feet above the level of your heart. Breathe deeply and steadily. Wait until all of the symptoms are gone. This information is not intended to replace advice given to you by your health care provider. Make sure you discuss any questions you have with your health care provider. Document Released: 03/26/2009 Document Revised: 11/20/2018 Document Reviewed: 11/20/2018 [employer] Patient Education 2020 [employer]. 12/24/2024 15:28:19 Pacemaker Implantation, Adult, Care After Pacemaker Implantation, Adult, Care After This sheet gives you information about how to care for yourself after your procedure. Your health care provider may also give you more specific instructions. If you have problems or questions, contact your health care provider. What can I expect after the procedure? After the procedure, it is common to have: Mild pain. Slight bruising. Some swelling over the incision. A slight bump over the skin where the device was placed. Sometimes, it is possible to feel the device under the skin. This is normal. Follow these instructions at home: Medicines Take nzhg-fix-dwnvpca and prescription medicines only as told by your health care provider. If you were prescribed an antibiotic medicine, take it as told by your health care provider. Do notstop taking the antibiotic even if you start to feel better. Wound care Do not remove the bandage on your chest until directed to do so by your health care provider. After your bandage is removed, you may see pieces of tape called skin adhesive strips over the areawhere the cut was made (incision site). Let them fall off on their own. Check the incision site every day to make sure it is not infected, bleeding, or starting to pull apart. Do not use lotions or ointments near the incision site unless directed to do so. Keep the incision area clean and dry for 2 3 days after the procedure or as directed by your healthcare provider. It takes several weeks for the incision site to completely heal. Do not take baths, swim, or use a hot tub for 7 10 days or as otherwise directed by your health care provider. Activity Do not drive or use heavy machinery while taking prescription pain medicine. Do not drive for 24 hours if you were given a medicine to help you relax (sedative). Check with your health care provider before you start to drive or play sports. Avoid sudden jerking, pulling, or chopping movements that pull your upper arm far away from your body. Avoid these movements for at least 6 weeks or as long as told by your health care provider. Do not lift your upper arm above your shoulders for at least 6 weeks or as long as told by your health care provider. This means no tennis, golf, or swimming. You may go back to work when your health care provider says it is okay. Pacemaker care You may be shown how to transfer data from your pacemaker through the phone to your health care provider. Always let all health care providers know about your pacemaker before you have any medical procedures or tests. Wear a medical ID bracelet or necklace stating that you have a pacemaker. Carry a pacemaker ID cardwith you at all times. Your pacemaker battery will last for 5 15 years. Routine checks by your health care provider will let the health care provider know when the battery is starting to run down. The pacemaker will need to be replaced when the battery starts to run down. Do not use amateur radio equipment or electric welding torches. Other electrical devices are safe to use, including power tools, lawn mowers, and speakers. If you are unsure of whether something is safe to use, ask your health care provider. When using your cell phone, hold it to the ear opposite the pacemaker. Do not leave your cell phonein a pocket over the pacemaker. Avoid places or objects that have a strong electric or magnetic field, including: ?Airport security [place]. When at the airport, let officials know that you have a pacemaker. ?Power plants. ?Large electrical generators. ?Radiofrequency transmission towers, such as cell phone and radio towers. General instructions Weigh yourself every day. If you suddenly gain weight, fluid may be building up in your body. Keep all follow-up visits as told by your health care provider. This is important. Contact a health care provider if: You gain weight suddenly. Your legs or feet swell. It feels like your heart is fluttering or skipping beats (heart palpitations). You have chills or a fever. You have more redness, swelling, or pain around your incisions. You have more fluid or blood coming from your incisions. Your incisions feel warm to the touch. You have pus or a bad smell coming from your incisions. Get help right away if: You have chest pain. You have trouble breathing or are short of breath. You become extremely tired. You are light-headed or you faint. This information is not intended to replace advice given to you by your health care provider. Make sure you discuss any questions you have with your health care provider. Document Released: 04/27/2006 Document Revised: 09/20/2018 Document Reviewed: 07/20/2017 Lela Patient Education 2020 [employer]. Follow Up Care 12/20/2024 15:13:50 With:Home Health Care (RN/PT/OT) provided by [facility] Address: [phone] When:1-2 days With:IRA MUKHERJEE MD, Surgery Address: [address] [place] [address] [address] [facility] [place] [address] [phone] When:3-7 days Comments:general surgeon who can help with your hemorrhoids With:[facility] Address: [address] [place] [address] [id number] [place] [address]- [phone] When:01/06/2025 13:00:00 Comments:This is your incision check in the [facility]. With:[facility] Address: [address] [place] [address] [id number] [place] [address]- [phone] When:03/26/2025 10:30:00 Comments:This is your hospital follow up in the [facility]. With:Readmission Risk Score Address:Unknown When: Unknown Comments:10 With:BRAYDEN BALDERRAMA Address: [address] [place] [address] [phone] Business (1) When:1-2 days [facility] 03-05-2025 Note Discharge Instructions Thank you for allowing [facility] to assist you with your healthcare needs. The following is importantdischarge information regarding your hospital visit. Your Care Team BRAYDEN BALDERRAMA MD What to do next Scheduled Follow-Up Appointments Appointment Type When Where Contact Information StatusCV Incision Check 01/06/2025 01:00 PM EDT [facility] Confirmed CV Office Procedure ICD 03/26/2025 10:30 AM EDT [facility] Confirmed CV Remote Procedure HM 06/29/2025 08:45 AM EDT [facility] Confirmed Follow Up Appointments Follow Up with Home Health Care (RN/PT/OT) provided by [facility] When:Within 1-2 days Where: [phone] Follow Up with IRA MUKHERJEE MD, Surgery When:Within 3-7 days Where:[address] [facility] [address] [facility] [place] [address]- [phone] Additional Information: general surgeon who can help with your hemorrhoids Follow Up with Readmission Risk Score Additional Information: 10 Follow Up with BRAYDEN BALDERRAMA When:Within 1-2 days Where:[address] [facility] [address] [place] [address] [phone] Business (1) Follow Up with [facility] When:01/06/2025 01:00 PM EDT Where:[address] [facility] [address] [place] [address]- [phone] Additional Information: This is your incision check in the [facility]. Follow Up with [facility] When:03/26/2025 10:30 AM EDT Where:[address] [facility] [id number] [place] [address]- [phone] Additional Information: This is your hospital follow up in the [facility]. The Following Activity and Diet Have Been Ordered for You Discharge Activity - Ordered -- Lifting Restricted less than 5 pounds, 12/23/24 12:08:00 EST Discharge Activity - Ordered -- Lifting Restricted less than 5 pounds, 12/24/24 12:37:00 EST Discharge Diet - Ordered -- Type of Diet: Cardiac, 12/23/24 12:08:00 EST Discharge Diet - Ordered -- Type of Diet: Cardiac, 12/24/24 12:37:00 EST The Following Equipment Has Been Ordered for You No qualifying data available. The Following Treatments Have Been Ordered for You Discharge Labs No qualifying data available. Discharge Radiology No qualifying data available. Other Therapies No qualifying data available. Post Acute Orders No qualifying data available. Someone Will Contact You Regarding These Home Health Referrals No home referrals have been ordered for you. No one will call you. Allergies Animal Dander unknown Mold unknown Pollen unknown amoxicillin nausea / vomitting lisinopril Headaches penicillin Syncope, Vomit, Nausea Medications Please ask your primary doctor or pharmacist before taking any other medication not listed, including over the counter drugs, herbal medications, vitamins and or supplements as they may interact withyour home medications. What How Much When Instructions Last Dose Unchanged chlorpheniramine by mouth Unchanged ergocalciferol (Vitamin D2 50 mcg (2000 intl units) oral capsule) 1 cap by mouth Once a day with food Unchanged herbal/ nutritional product (saw palmetto oral capsule) Unchanged hydroCHLOROthiazide (hydroCHLOROthiazide 12.5 mg oral capsule) 1 cap by mouth Every day Unchanged levothyroxine (levothyroxine 50 mcg (0.05 mg) oral tablet) take 1 tablet by mouth every morning Unchanged magnesium glycinate (magnesium glycinate 200 mg oral tablet) 0.5 tab(s) by mouth Unchanged metoprolol (Toprol-XL 25 mg oral tablet, extended release) 0.5 tab(s) by mouth Once a day Duration: 90 Days Unchanged mexiletine (mexiletine 200 mg oral capsule) 1 cap by mouth Every 8 hours Duration: 30 Days Unchanged multivitamin with minerals (Centrum Silver oral tablet) 1 tab(s) by mouth Once a day Unchanged potassium chloride (potassium chloride 99 mg oral tablet) 1 tab(s) by mouth Twice a week Please take this list to your next doctor s visit. Bring all medications you take, including over the counter medications, herbals and other supplements with you to your doctor s visit. Patients and families are reminded to discard old lists and to update any records with all medication providers or retail pharmacies. Education Materials Syncope Syncope is when you pass out (faint) for a short time. It is caused by a sudden decrease in blood flow to the brain. Signs that you may be about to pass out include: Feeling dizzy or light-headed. Feeling sick to your stomach (nauseous). Seeing all white or all black. Having cold, clammy skin. If you pass out, get help right away. Call your local emergency services (911 in the [place] Do not drive yourself to the hospital. Follow these instructions at home: Watch for any changes in your symptoms. Take these actions to stay safe and help with your symptoms: Lifestyle Do not drive, use machinery, or play sports until your doctor says it is okay. Do not drink alcohol. Do not use any products that contain nicotine or tobacco, such as cigarettes and e-cigarettes. If you need help quitting, ask your doctor. Drink enough fluid to keep your pee (urine) pale yellow. General instructions Take wjql-cej-thpmqol and prescription medicines only as told by your doctor. If you are taking blood pressure or heart medicine, sit up and stand up slowly. Spend a few minutesgetting ready to sit and then stand. This can help you feel less dizzy. Have someone stay with you until you feel stable. If you start to feel like you might pass out, lie down right away and raise (elevate) your feet above the level of your heart. Breathe deeply and steadily. Wait until all of the symptoms are gone. Keep all follow-up visits as told by your doctor. This is important. Get help right away if: You have a very bad headache. You pass out once or more than once. You have pain in your chest, belly, or back. You have a very fast or uneven heartbeat (palpitations). It hurts to breathe. You are bleeding from your mouth or your bottom (rectum). You have black or tarry poop (stool). You have jerky movements that you cannot control (seizure). You are confused. You have trouble walking. You are very weak. You have vision problems. These symptoms may be an emergency. Do not wait to see if the symptoms will go away. Get medical help right away. Call your local emergency services (911 in the [place] Do not drive yourself to the hospital. Summary Syncope is when you pass out (faint) for a short time. It is caused by a sudden decrease in blood flow to the brain. Signs that you may be about to faint include feeling dizzy, light-headed, or sick to your stomach, seeing all white or all black, or having cold, clammy skin. If you start to feel like you might pass out, lie down right away and raise (elevate) your feet above the level of your heart. Breathe deeply and steadily. Wait until all of the symptoms are gone. This information is not intended to replace advice given to you by your health care provider. Make sure you discuss any questions you have with your health care provider. Document Released: 03/26/2009 Document Revised: 11/20/2018 Document Reviewed: 11/20/2018 Lela Patient Education 2020 [employer] Pacemaker Implantation, Adult, Care After This sheet gives you information about how to care for yourself after your procedure. Your health care provider may also give you more specific instructions. If you have problems or questions, contact your health care provider. What can I expect after the procedure? After the procedure, it is common to have: Mild pain. Slight bruising. Some swelling over the incision. A slight bump over the skin where the device was placed. Sometimes, it is possible to feel the device under the skin. This is normal. Follow these instructions at home: Medicines Take hplj-sle-bgydwpv and prescription medicines only as told by your health care provider. If you were prescribed an antibiotic medicine, take it as told by your health care provider. Do notstop taking the antibiotic even if you start to feel better. Wound care Do not remove the bandage on your chest until directed to do so by your health care provider. After your bandage is removed, you may see pieces of tape called skin adhesive strips over the areawhere the cut was made (incision site). Let them fall off on their own. Check the incision site every day to make sure it is not infected, bleeding, or starting to pull apart. Do not use lotions or ointments near the incision site unless directed to do so. Keep the incision area clean and dry for 2 3 days after the procedure or as directed by your healthcare provider. It takes several weeks for the incision site to completely heal. Do not take baths, swim, or use a hot tub for 7 10 days or as otherwise directed by your health care provider. Activity Do not drive or use heavy machinery while taking prescription pain medicine. Do not drive for 24 hours if you were given a medicine to help you relax (sedative). Check with your health care provider before you start to drive or play sports. Avoid sudden jerking, pulling, or chopping movements that pull your upper arm far away from your body. Avoid these movements for at least 6 weeks or as long as told by your health care provider. Do not lift your upper arm above your shoulders for at least 6 weeks or as long as told by your health care provider. This means no tennis, golf, or swimming. You may go back to work when your health care provider says it is okay. Pacemaker care You may be shown how to transfer data from your pacemaker through the phone to your health care provider. Always let all health care providers know about your pacemaker before you have any medical procedures or tests. Wear a medical ID bracelet or necklace stating that you have a pacemaker. Carry a pacemaker ID cardwith you at all times. Your pacemaker battery will last for 5 15 years. Routine checks by your health care provider will let the health care provider know when the battery is starting to run down. The pacemaker will need to be replaced when the battery starts to run down. Do not use amateur radio equipment or electric welding torches. Other electrical devices are safe to use, including power tools, lawn mowers, and speakers. If you are unsure of whether something is safe to use, ask your health care provider. When using your cell phone, hold it to the ear opposite the pacemaker. Do not leave your cell phonein a pocket over the pacemaker. Avoid places or objects that have a strong electric or magnetic field, including: ? Airport security [place]. When at the airport, let officials know that you have a pacemaker. ? Power plants. ? Large electrical generators. ? Radiofrequency transmission towers, such as cell phone and radio towers. General instructions Weigh yourself every day. If you suddenly gain weight, fluid may be building up in your body. Keep all follow-up visits as told by your health care provider. This is important. Contact a health care provider if: You gain weight suddenly. Your legs or feet swell. It feels like your heart is fluttering or skipping beats (heart palpitations). You have chills or a fever. You have more redness, swelling, or pain around your incisions. You have more fluid or blood coming from your incisions. Your incisions feel warm to the touch. You have pus or a bad smell coming from your incisions. Get help right away if: You have chest pain. You have trouble breathing or are short of breath. You become extremely tired. You are light-headed or you faint. This information is not intended to replace advice given to you by your health care provider. Make sure you discuss any questions you have with your health care provider. Document Released: 04/27/2006 Document Revised: 09/20/2018 Document Reviewed: 07/20/2017 Lela Patient Education 2020 [employer]. Additional Information VACCINATE! IT SAVES LIVES! Members of the community who have not yet received the COVID-19 vaccine and would like to receive it can visit one of [facility] vaccine clinics. There are many vaccine clinic locations within the [facility]. For locations and available times, please visit https://gettheshot.coronavirus.[place].gov/. It is important to note that some COVID mobile vaccine clinics are held outdoors and may be canceled in rainy or stormy conditions. To learn more about pediatric vaccinations (ages 5-11), we invite you to visit the [facility] webpage. https://www.[facility]s.org/pages/9739-Xcayu-Xyqcrzxipes-Mqrovpuxvw-Syrzi-Bkr stions.htmlTo learn more about the COVID-19 vaccine, we invite you to visit the CDC website for a list of frequently asked questions.https://www.cdc.gov/coronavirus/2019-ncov/vaccines/faq.html [facility] Patient Portal Access Instructions: Stay connected with your healthcare team and access your personal medical information anytime with the [facility] Patient Portal. Please follow the directions below to create your [facility] account: 1.Access the email account you provided upon registration to the hospital/physician office.2.Look for an invitation email from [facility].3.Open the email and access the invitation link: AcceptInvitation to [facility].4.Fill in the required marroquin to create your account. To access your account, visit [email or web address]. Click the blue button labeled Access Patient Portal and then log in with the username and password that you created in the steps above. You will be able to view your test results, lab results, a summary of your visits, upcoming appointments and more. There is also a convenient messaging option where you can send secure messages to your p amosvider. In addition, you will have the ability to download any documents or summaries to your computer and/or send the information securely to a physician. Remember that your healthcare information is confidential, so carefully consider who you will allowto register on the [facility] Patient Portal for access to your information. You can also access the [facility] Patient Portal on the [facility] joão. Simply click on Patient Portal and then log into your account. If you would like to receive a full copy of your medical records, please contact the [facility] Medical Records Department by calling [phone], Sunday through Sunday between 8 a.m. and 4:30 p.m. HOW TO SAFELY DISPOSE OF PRESCRIPTION MEDICATIONS Please use one of the following methods to safely dispose of your unused medications. 1.Use a drug disposal kit: the drug disposal pouch allows you to safely discard your old and unuseddrugs. Ask your nurse to give you one when you are discharged.2.Visit a local take-back location: Many local pharmacies and police departments have programs that collect old and unwanted prescriptiondrugs. Call your local pharmacy or go to http://SportCentral.Domino/2K5Hg2h to find one close to you.3.Make use of household items: Use cat litter or old coffee grounds to dispose medications if other options arenot available. Mix your drugs with these household products, seal them in an airtight container andthrow it into the garbage. Call [facility]: [phone] to be sure your drugs can be disposed of in this way. Some medicines may require a different approach.4.Never flush your medications down the toilet. IF YOU HAVE BEEN PRESCRIBED AN OPIOID FOR PAIN If you have been prescribed an opioid (such as hydrocodone, oxycodone or morphine), it is critical to understand the possible side effects and risks of opioid pain medications. Even when taken as directed, opioids can have several side effects including: Tolerance, meaning you might need to take more of a medication for the same pain relief. Nausea, vomiting and/or constipation. Sleepiness, dizziness, dry mouth, confusion, depression or itching. Physical dependence, meaning you have withdrawal symptoms when a medication is stopped, can develop within a few days. KNOW YOUR RESPONSIBILITIES It is important to know exactly how much and how often to take the opioid pain medications you are prescribed. Never take opioids in higher amounts or more often than prescribed. Do not combine opioids with alcohol or other drugs that cause drowsiness, such as benzodiazepines, also known as benzos, including diazepam and alprazolam, muscle relaxants or sleep aids. Never sell or share prescription opioids. This is illegal. Store opioids in a secure place and out of reach of others (including children, family, friends and visitors). The last page of this document has been signed and retained as a CHART COPY. Signatures Patient Education Materials Syncope, Kbgi-qf-Vmnp Pacemaker Implantation, Adult, Care After Medication Leaflets My discharge plan and instructions have been reviewed and explained to me and I,ANATOLIY TORRES understand my current condition and have read and understand these discharge instructions. I have received a written copy of the plan/instructions. If I have questions, I am aware that I should contact my d octor. 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 Patient presented to [facility] after experiencing a syncopal episode while out to lunch with his . Per documentation, patient was lightheaded, diaphoretic and vomited following the syncopal episode. Interrogation of patient's loop recorder was completed which did demonstrate a 3-second sinus pause that correlated with the syncopal event. While at [facility], patient was having episodes of bradycardia and was subsequently transferred to [facility] for further evaluation. Patient underwent permanent pacemaker placement with Dr. Rosas on 12/22/2024. Hospitalist services are being consulted for evaluation of bright red blood per rectum episode. Pt with history of hemorrhoids and experiences a flare approximately every 3 months where they will bleed. On exam pt laying in bed fully clothed and eager for discharge. Denies any further episodes of bleeding and states he feels great. Hgb remains stable. Pt states that he is not interested in surgical intervention of hemorrhoids as he knows people who regret having the surgery as they have came back anyways. Pt with no current complaints. Objective Vitals and Measurements T: 36.8 C (Oral) TMIN: 36.6 C (Oral) TMAX: 36.9 C (Oral) HR: 69 (Monitored) RR: 17 BP: 134/77 SpO2:96% Intake and Output 7AM Yesterday to 7AM Today Last 24 hours Intake Medication 550.00 Oral Intake 1150.00 Output Urine Voided 1050.00 Stool Count 3.00 Urine Count 10.00 Total Summary Total Intake 1700.00 Total Output 1050.00 Fluid Balance 650.00 Physical Exam General: Alert and oriented x 3, NAD Head: Normocephalic, mmm, sclera nonicteric Cardiovascular: Normal rate and rhythm, no murmur, - edema Respiratory: Lungs clear to auscultation bilaterally, easy Abdomen: soft and non-distended, bowel sounds active all 4 quadrants Neurological: Moving all 4 extremities, speech clear Psychological: normal affect, cooperative, good eye contact Weight Dosing Weight: 78.6 kg (12/20/24) Medications Medications (24) Active Scheduled: (9) cholecalciferol 50 mcg tablet (Vit D3 2000 unit(s)) 50 mcg 1 tab(s), Oral, qDay docusate-senna (Senokot S) 50 mg-8.6 mg Tablet 1 tab(s), Oral, BID hydrochlorothiazide 12.5 mg tablet 12.5 mg 1 tab(s), Oral, qDay levothyroxine 50 mcg tablet 50 mcg 1 tab(s), Oral, qDay metoprolol succinate 25 mg ER tablet 12.5 mg 0.5 tab(s), Oral, qDay mexiletine 200 mg capsule 200 mg 1 cap(s), Oral, q8h multivitamin (Myadec) with minerals Therapeutic Multiple Vitamins with Minerals Tablet 1 tab(s), Oral, qDay No metformin for 48 hrs post contrast 1 EA, Miscellaneous, Unscheduled polyethylene glycol 3350 - UD packet 17 gram(s) 15 mL, Oral, qDay Continuous: (0) PRN: (15) acetaminophen 325 mg Tablet 650 mg 2 tab(s), Oral, q4h acetaminophen 325 mg Tablet 650 mg 2 tab(s), Oral, q6hr acetaminophen 325 mg Tablet 650 mg 2 tab(s), Oral, q4h acetaminophen-HYDROcodone 325-5 mg tablet 1 tab(s), Oral, q4h atropine 0.1 mg/mL 10 mL SYRINGE 1 mg 10 mL, IV Push, AsDirected dextrose 50% Solution Disp syringe 50 mL 25 gram(s) 50 mL, IV Push, AsDirected magnesium sulfate 4 gram(s)/100mL PMX 4 g 100 mL, IV Piggyback, AsDirected magnesium sulfate 50% (500mg/mL) 6 g 12 mL, IV Piggyback, AsDirected magnesium sulfate PMX 2 g 50 mL, IV Piggyback, AsDirected morphine 2 mg/mL 1 mL syringe 1 mg 0.5 mL, IV Push, q1h nitroglycerin 0.4 mg Tablet (25/btl) 0.4 mg 1 tab(s), Sublingual, q5min potassium chloride (PMX) 20 mEq/100 mL 20 mEq 100 mL, IV Piggyback, AsDirected potassium chloride 20 mEq ER tablet 20 mEq 1 tab(s), Oral, AsDirected potassium chloride 20 mEq ER tablet 40 mEq 2 tab(s), Oral, AsDirected potassium chloride 20 mEq ER tablet 40 mEq 2 tab(s), Oral, AsDirected Lab Results 12/24 04:11 WBC: 9.8 Hgb: 13.3 Hct: 37.0 L Platelet: 195 Neutrophil %: 64.0 Glucose Level: 94 Sodium Level: 135 L Potassium Level: 4.4 BUN: 33.0 H Creatinine Lvl (s): 1.80 H 12/23 22:38 Hgb: 13.6 Hct: 39.0 L 12/23 04:16 WBC: 10.7 Hgb: 13.7 Hct: 38.8 L Platelet: 215 Neutrophil %: 72.1 Glucose Level: 116 H Sodium Level: 134 L Potassium Level: 4.7 BUN: 29.0 H Creatinine Lvl (s): 1.95 H EKG Electrocardiogram - Completed -- 12/23/24 6:00:00 EST Assessment/Plan Bright red blood per rectum Syncopal episode secondary to sinus pause Bradycardia status post permanent pacemaker placement CKD HTN hypothyroidism paroxysmal afib RBBB BRBPR secondary to hemorrhoids, resolved. Did provide pt with referral to general surgery if he decided he would like to pursue surgical intervention. Hgb and VSS stable and no need for further intervention at this time All other conditions-management per primary team Discussed with Dr. Samuel, [facility] physician. From a medical standpoint the patient's chronic conditions appear to be at baseline without acute issues. Pt stable for discharge from hospitalist stand point. Will sign off and see PRN throughout the duration of admission. Please contact us should further medical evaluation be necessary. Thank youfor requesting our participation with care of your patient. Digitally Signed by YULIA TAVERAS on 12/24/2024 11:28 AM [id number] Note Discharge Instructions Thank you for allowing [facility] to assist you with your healthcare needs. The following is importantdischarge information regarding your hospital visit. Your Care Team BRAYDEN BALDERRAMA MD What to do next Scheduled Follow-Up Appointments Appointment Type When Where Contact Information StatusCV Incision Check 01/06/2025 01:00 PM EDT [facility] Confirmed CV Office Procedure ICD 03/26/2025 10:30 AM EDT [facility] Confirmed CV Remote Procedure HM 06/29/2025 08:45 AM EDT [facility] Confirmed Follow Up Appointments Follow Up with Home Health Care (RN/PT/OT) provided by [facility] When:Within 1-2 days Where: [phone] Follow Up with IRA MUKHERJEE MD, Surgery When:Within 3-7 days Where:[address] [facility] [address] [place] [address]- [phone] Additional Information: general surgeon who can help with your hemorrhoids Follow Up with Readmission Risk Score Additional Information: 10 Follow Up with BRAYDEN BALDERRAMA When:Within 1-2 days Where:[address] [place] [address] [phone] Business (1) [facility] Up with [facility] When:01/06/2025 01:00 PM EDT Where:[address] [facility] [id number] [place] [address]- [phone] Additional Information: This is your incision check in the Device Clinic. Follow Up with [facility] When:03/26/2025 10:30 AM EDT Where:[address] [facility] [id number] [place] [address]- [phone] Additional Information: This is your hospital follow up in the Device Clinic. The Following Activity and Diet Have Been Ordered for You Discharge Activity - Ordered -- Lifting Restricted less than 5 pounds, 12/23/24 12:08:00 EST Discharge Activity - Ordered -- Lifting Restricted less than 5 pounds, 12/24/24 12:37:00 EST Discharge Diet - Ordered -- Type of Diet: Cardiac, 12/23/24 12:08:00 EST Discharge Diet - Ordered -- Type of Diet: Cardiac, 12/24/24 12:37:00 EST The Following Equipment Has Been Ordered for You No qualifying data available. The Following Treatments Have Been Ordered for You Discharge Labs No qualifying data available. Discharge Radiology No qualifying data available. Other Therapies No qualifying data available. Post Acute Orders No qualifying data available. Someone Will Contact You Regarding These Home Health Referrals Consult Home Health - OT - Ordered -- 12/24/24 14:32:00 EST, Home Therapy Order: OT Eval & Treat, Home Therapy Instruction: Full weight bearing, Reason: ADL assistance General Debility Consult Home Health - PT - Ordered -- 12/24/24 14:32:00 EST, Home Therapy Order: PT Eval & Treat, Reason: General Debility, Home Therapy Instruction: Full weight bearing Consult Home Health - RN - Ordered -- 12/24/24 14:32:00 EST, Reason: Disease management Medication management Allergies Animal Dander unknown Mold unknown Pollen unknown amoxicillin nausea / vomitting lisinopril Headaches penicillin Syncope, Vomit, Nausea Medications Please ask your primary doctor or pharmacist before taking any other medication not listed, including over the counter drugs, herbal medications, vitamins and or supplements as they may interact withyour home medications. What How Much When Instructions Last Dose Unchanged chlorpheniramine by mouth Unchanged ergocalciferol (Vitamin D2 50 mcg (2000 intl units) oral capsule) 1 cap by mouth Once a day with food Unchanged herbal/ nutritional product (saw palmetto oral capsule) Unchanged hydroCHLOROthiazide (hydroCHLOROthiazide 12.5 mg oral capsule) 1 cap by mouth Every day Unchanged levothyroxine (levothyroxine 50 mcg (0.05 mg) oral tablet) take 1 tablet by mouth every morning Unchanged magnesium glycinate (magnesium glycinate 200 mg oral tablet) 0.5 tab(s) by mouth Unchanged metoprolol (Toprol-XL 25 mg oral tablet, extended release) 0.5 tab(s) by mouth Once a day Duration: 90 Days Unchanged mexiletine (mexiletine 200 mg oral capsule) 1 cap by mouth Every 8 hours Duration: 30 Days Unchanged multivitamin with minerals (Centrum Silver oral tablet) 1 tab(s) by mouth Once a day Unchanged potassium chloride (potassium chloride 99 mg oral tablet) 1 tab(s) by mouth Twice a week Please take this list to your next doctor s visit. Bring all medications you take, including over the counter medications, herbals and other supplements with you to your doctor s visit. Patients and families are reminded to discard old lists and to update any records with all medication providers or retail pharmacies. Additional Information VACCINATE! IT SAVES LIVES! Members of the community who have not yet received the COVID-19 vaccine and would like to receive it can visit one of [facility] vaccine clinics. There are many vaccine clinic locations within the [facility]. For locations and available times, please visit [email or web address] It is important to note that some COVID mobile vaccine clinics are held outdoors and may be canceled in rainy or stormy conditions. To learn more about pediatric vaccinations (ages 5-11), we invite you to visit the [facility] webpage. [email or web address] learn more about the COVID-19 vaccine, we invite you to visit the CDC website for a list of frequently asked questions.https://www.cdc.gov/coronavirus/2019-ncov/vaccines/faq.html [facility] Patient Portal Access Instructions: Stay connected with your healthcare team and access your personal medical information anytime with the [facility] Patient Portal. Please follow the directions below to create your [facility] account: 1.Access the email account you provided upon registration to the hospital/physician office.2.Look for an invitation email from [facility].3.Open the email and access the invitation link: AcceptInvitation to [facility].4.Fill in the required marroquin to create your account. To access your account, visit [email or web address]. Click the blue button labeled Access Patient Portal and then log in with the username and password that you created in the steps above. You will be able to view your test results, lab results, a summary of your visits, upcoming appointments and more. There is also a convenient messaging option where you can send secure messages to your p No Chainsvider. In addition, you will have the ability to download any documents or summaries to your computer and/or send the information securely to a physician. Remember that your healthcare information is confidential, so carefully consider who you will allowto register on the [facility] Patient Portal for access to your information. You can also access the [facility] Patient Portal on the [facility] joão. Simply click on Patient Portal and then log into your account. If you would like to receive a full copy of your medical records, please contact the [facility] Medical Records Department by calling [phone], Sunday through Sunday between 8 a.m. and 4:30 p.m. HOW TO SAFELY DISPOSE OF PRESCRIPTION MEDICATIONS Please use one of the following methods to safely dispose of your unused medications. 1.Use a drug disposal kit: the drug disposal pouch allows you to safely discard your old and unuseddrugs. Ask your nurse to give you one when you are discharged.2.Visit a local take-back location: Many local pharmacies and police departments have programs that collect old and unwanted prescriptiondrugs. Call your local pharmacy or go to http://bit.ly/6F6Da7w to find one close to you.3.Make use of household items: Use cat litter or old coffee grounds to dispose medications if other options arenot available. Mix your drugs with these household products, seal them in an airtight container andthrow it into the garbage. [facility]: [phone] to be sure your drugs can be disposed of in this way. Some medicines may require a different approach.4.Never flush your medications down the toilet. IF YOU HAVE BEEN PRESCRIBED AN OPIOID FOR PAIN If you have been prescribed an opioid (such as hydrocodone, oxycodone or morphine), it is critical to understand the possible side effects and risks of opioid pain medications. Even when taken as directed, opioids can have several side effects including: Tolerance, meaning you might need to take more of a medication for the same pain relief. Nausea, vomiting and/or constipation. Sleepiness, dizziness, dry mouth, confusion, depression or itching. Physical dependence, meaning you have withdrawal symptoms when a medication is stopped, can develop within a few days. KNOW YOUR RESPONSIBILITIES It is important to know exactly how much and how often to take the opioid pain medications you are prescribed. Never take opioids in higher amounts or more often than prescribed. Do not combine opioids with alcohol or other drugs that cause drowsiness, such as benzodiazepines, also known as benzos, including diazepam and alprazolam, muscle relaxants or sleep aids. Never sell or share prescription opioids. This is illegal. Store opioids in a secure place and out of reach of others (including children, family, friends and visitors). The last page of this document has been signed and retained as a CHART COPY. Signatures Patient Education Materials Medication Leaflets My discharge plan and instructions have been reviewed and explained to me and I,ANATOLIY TORRES understand my current condition and have read and understand these discharge instructions. I have received a written copy of the plan/instructions. If I have questions, I am aware that I should contact my d octor. 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 Signature: Date/Time: Relationship to Patient: Witness Name/Signature: Date/Time: [id number] Discharge summary Date of Service 12/24/2024 12:38:00 Discharge Diagnosis Syncopal episode secondary to sinus pauses Right bundle branch block History of frequent PVCs, on mexiletine Isolated atrial fibrillation event currently not on anticoagulation Hypertension Hypothyroidism CKD (Baseline Cr 1.7-1.8) Hospital Course 84-year-old male with history of frequent PVCs (14% burden--> 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 Patient has been having these recurrent syncopal episodes for some time now where he will usually be doing something nonexertional, get a sensation that he is about to pass out, before experiencing syncope. Patient recently had a EP study done on December 15 and which demonstrated acceptable His-Purkinje conduction with a HV of 60 ms. Loop recorder was placed. Today he had gone to have lunch with his when he again experienced a syncopal episode. EMS was called, and interrogation of loop recorder demonstrated a 3-second sinus pause that correlated with the event. Workup at [place] was largely unremarkable however it was noted that he was having episodesof bradycardia into the high 40s. Patient had a rapid response here for brief unresponsiveness, with heart rates in the low 30s requiring atropine. EP consulted. Patient underwent successful pacemaker placement without complication. Postprocedural chest x-ray shows no pneumothorax. Patient is stable for discharge with EP follow-up. Of note, hospitalist medicine was consulted for bright red blood per rectum. The attributed this tohemorrhoids. Follow-up with PCP. Allergies Animal Dander unknown Mold unknown Pollen unknown amoxicillin nausea / vomitting lisinopril Headaches penicillin Syncope, Vomit, Nausea Consults Consult to Case Management/Social Service (Consult to Case Management) - Ordered -- 12/23/24 16:29:54 EST Consult to Case Management/Social Service (Consult to Case Management) - Ordered -- 12/23/24 17:24:19 EST Consult to Physician - Ordered -- 12/23/24 17:57:00 EST, HAWA PERALES DO, Routine, Pt awaiting rehab placement, noted bright red blood in diaper without other symptoms Imaging Results and Diagnostics XR Chest 2 Views Result Date: December 23, 2024 Verified By: SCOUT DAWSON MD CLINICAL STATEMENT: IMPRESSION: Stable appearing left-sided dual lead cardiac pacer device. No evidence ofpneumothorax.Interval improvement in the left-sided trace pleural effusion when comparedto yesterday's exam. I have personally reviewed the images of this examination and agree with theresident's findings and interpretation. XR Chest 1 View Result Date: December 22, 2024 Verified By: NIKHIL FIELD DO CLINICAL STATEMENT: IMPRESSION: Suspect minimal trace left pleural effusion. Minimal overlying left basilarsubsegmentalatelectasis. Left-sided pacemaker with leads projecting over the right atrium and rightventricle. No pneumothorax. I have personally reviewed the images of this examination and agree with theresident's findings and interpretation. Physical Exam Vitals and Measurements T: 36.8 C (Oral) TMIN: 36.6 C (Oral) TMAX: 36.9 C (Oral) HR: 69 (Monitored) RR: 17 BP: 134/77 SpO2:96% Weight Dosing Weight: 78.6 kg (12/20/24) General: AAOX3, NAD HEENT: Anicteric sclera, MMM Neck: Trachea midline, no JVD appreciated CVS: RRR, normal S1/S2, no murmurs/rubs/gallops Lung: CTAB, no wheezes/rhonchi/rales Abd: Soft, NT/ND Extrem: WWP, no LE edema Skin: Warm, Intact Neuro: AAOX3, spontaneous movement of all extremities Psych: Appropriate mood & affect Code Status Code Status - Ordered -- 12/21/24 19:38:00 EST, Full Code, Constant Order Admission Date 12/20/2024 20:12:00 Discharge Date 12/24/2024 12:39:09 Medications Unchanged chlorpheniramineby mouth. ergocalciferol (Vitamin D2 50 mcg (2000 intl units) oral capsule)1 cap by mouth once a day. with food. herbal/nutritional product (saw palmetto oral capsule) hydroCHLOROthiazide (hydroCHLOROthiazide 12.5 mg oral capsule)1 cap by mouth every day. Refills: 1. levothyroxine (levothyroxine 50 mcg (0.05 mg) oral tablet)take 1 tablet by mouth every morning. magnesium glycinate (magnesium glycinate 200 mg oral tablet)0.5 tab(s) by mouth. metoprolol (Toprol-XL 25 mg oral tablet, extended release)0.5 tab(s) by mouth once a day for 90 Days. Refills: 3. mexiletine (mexiletine 200 mg oral capsule)1 cap by mouth every 8 hours for 30 Days. Refills: 3. multivitamin with minerals (Centrum Silver oral tablet)1 tab(s) by mouth once a day. potassium chloride (potassium chloride 99 mg oral tablet)1 tab(s) by mouth twice a week. Follow Up Follow Up with IRA MUKHERJEE MD, Surgery When:Within 3-7 days Where:[address] [facility] [address] [facility] [place] [address]- [phone] Additional Information: general surgeon who can help with your hemorrhoids Follow Up with Readmission Risk Score Additional Information: 10 Follow Up with BRAYDEN BALDERRAMA When:Within 1-2 days Where:[address] [facility] [address] [place] [address] [phone] Business (1) Follow Up with [facility] When:01/06/2025 01:00 PM EDT Where:[address] [place] [address] [id number] [place] [address]- [phone] Additional Information: This is your incision check in the Device Clinic. Follow Up with [facility] When:03/26/2025 10:30 AM EDT Where:[address] [place] [address] [id number] [place] [address]- [phone] Additional Information: This is your hospital follow up in the Device Clinic. Follow Up Appointments No qualifying data available. Follow Up Labs/Studies Discharge Labs No Follow-up Labs Discharge Studies No Follow-up Studies Discharge Diet Discharge Diet - Ordered -- Type of Diet: Cardiac, 12/24/24 12:37:00 EST Discharge Activity Discharge Activity - Ordered -- Lifting Restricted less than 5 pounds, 12/24/24 12:37:00 EST Condition on Discharge good Discharge Disposition home [1] Discharge Summary with PE; WINNIE GAR DO 12/23/2024 12:08 EST Digitally Signed by WINNIE GAR DO on 12/24/2024 12:39 PM [facility] [id number] Note Date of Service 12/25/2023 Chief Complaint hemorrhoids Subjective Pt is a 84-year-old male with past medical history significant for chronic kidney disease, frequentPVCs, hypertension, hypothyroidism, paroxysmal atrial fibrillation (not on anticoagulation), recurrent syncope status post loop recorder and right bundle branch block. Patient presented to [facility] after experiencing a syncopal episode while out to lunch with his . Per documentation, patient was lightheaded, diaphoretic and vomited following the syncopal episode. Interrogation of patient's loop recorder was completed which did demonstrate a 3-second sinus pause that correlated with the syncopal event. While at [facility], patient was having episodes of bradycardia and was subsequently transferred to [facility] for further evaluation. Patient underwent permanent pacemaker placement with Dr. Rosas on 12/22/2024. Hospitalist services are being consulted for evaluation of bright red blood per rectum episode. Pt with history of hemorrhoids and experiences a flare approximately every 3 months where they will bleed. On exam pt laying in bed fully clothed and eager for discharge. Denies any further episodes of bleeding and states he feels great. Hgb remains stable. Pt states that he is not interested in surgical intervention of hemorrhoids as he knows people who regret having the surgery as they have came back anyways. Pt with no current complaints. Objective Vitals and Measurements T: 36.8 C (Oral) TMIN: 36.6 C (Oral) TMAX: 36.9 C (Oral) HR: 69 (Monitored) RR: 17 BP: 134/77 SpO2:96% Intake and Output 7AM Yesterday to 7AM Today Last 24 hours Intake Medication 550.00 Oral Intake 1150.00 Output Urine Voided 1050.00 Stool Count 3.00 Urine Count 10.00 Total Summary Total Intake 1700.00 Total Output 1050.00 Fluid Balance 650.00 Physical Exam General: Alert and oriented x 3, NAD Head: Normocephalic, mmm, sclera nonicteric Cardiovascular: Normal rate and rhythm, no murmur, - edema Respiratory: Lungs clear to auscultation bilaterally, easy Abdomen: soft and non-distended, bowel sounds active all 4 quadrants Neurological: Moving all 4 extremities, speech clear Psychological: normal affect, cooperative, good eye contact Weight Dosing Weight: 78.6 kg (12/20/24) Medications Medications (24) Active Scheduled: (9) cholecalciferol 50 mcg tablet (Vit D3 2000 unit(s)) 50 mcg 1 tab(s), Oral, qDay docusate-senna (Senokot S) 50 mg-8.6 mg Tablet 1 tab(s), Oral, BID hydrochlorothiazide 12.5 mg tablet 12.5 mg 1 tab(s), Oral, qDay levothyroxine 50 mcg tablet 50 mcg 1 tab(s), Oral, qDay metoprolol succinate 25 mg ER tablet 12.5 mg 0.5 tab(s), Oral, qDay mexiletine 200 mg capsule 200 mg 1 cap(s), Oral, q8h multivitamin (Myadec) with minerals Therapeutic Multiple Vitamins with Minerals Tablet 1 tab(s), Oral, qDay No metformin for 48 hrs post contrast 1 EA, Miscellaneous, Unscheduled polyethylene glycol 3350 - UD packet 17 gram(s) 15 mL, Oral, qDay Continuous: (0) PRN: (15) acetaminophen 325 mg Tablet 650 mg 2 tab(s), Oral, q4h acetaminophen 325 mg Tablet 650 mg 2 tab(s), Oral, q6hr acetaminophen 325 mg Tablet 650 mg 2 tab(s), Oral, q4h acetaminophen-HYDROcodone 325-5 mg tablet 1 tab(s), Oral, q4h atropine 0.1 mg/mL 10 mL SYRINGE 1 mg 10 mL, IV Push, AsDirected dextrose 50% Solution Disp syringe 50 mL 25 gram(s) 50 mL, IV Push, AsDirected magnesium sulfate 4 gram(s)/100mL PMX 4 g 100 mL, IV Piggyback, AsDirected magnesium sulfate 50% (500mg/mL) 6 g 12 mL, IV Piggyback, AsDirected magnesium sulfate PMX 2 g 50 mL, IV Piggyback, AsDirected morphine 2 mg/mL 1 mL syringe 1 mg 0.5 mL, IV Push, q1h nitroglycerin 0.4 mg Tablet (25/btl) 0.4 mg 1 tab(s), Sublingual, q5min potassium chloride (PMX) 20 mEq/100 mL 20 mEq 100 mL, IV Piggyback, AsDirected potassium chloride 20 mEq ER tablet 20 mEq 1 tab(s), Oral, AsDirected potassium chloride 20 mEq ER tablet 40 mEq 2 tab(s), Oral, AsDirected potassium chloride 20 mEq ER tablet 40 mEq 2 tab(s), Oral, AsDirected Lab Results 12/24 04:11 WBC: 9.8 Hgb: 13.3 Hct: 37.0 L Platelet: 195 Neutrophil %: 64.0 Glucose Level: 94 Sodium Level: 135 L Potassium Level: 4.4 BUN: 33.0 H Creatinine Lvl (s): 1.80 H 12/23 22:38 Hgb: 13.6 Hct: 39.0 L 12/23 04:16 WBC: 10.7 Hgb: 13.7 Hct: 38.8 L Platelet: 215 Neutrophil %: 72.1 Glucose Level: 116 H Sodium Level: 134 L Potassium Level: 4.7 BUN: 29.0 H Creatinine Lvl (s): 1.95 H EKG Electrocardiogram - Completed -- 12/23/24 6:00:00 EST Assessment/Plan Bright red blood per rectum Syncopal episode secondary to sinus pause Bradycardia status post permanent pacemaker placement CKD HTN hypothyroidism paroxysmal afib RBBB BRBPR secondary to hemorrhoids, resolved. Did provide pt with referral to general surgery if he decided he would like to pursue surgical intervention. Hgb and VSS stable and no need for further intervention at this time All other conditions-management per primary team Discussed with Dr. Samuel, collaborative physician. From a medical standpoint the patient's chronic conditions appear to be at baseline without acute issues. Pt stable for discharge from hospitalist stand point. Will sign off and see PRN throughout the duration of admission. Please contact us should further medical evaluation be necessary. Thank youfor requesting our participation with care of your patient. Digitally Signed by YULIA TAVERAS on 12/24/2024 11:28 AM [facility] [id number] Pastoral care Progress note Pastoral Care Note Entered On: 12/24/2024 9:54 EST Performed On: 12/23/2024 9:08 EST by Osmel Chandler Type of Pastoral Visit : Initial visit Spiritual Care Visit Initiated by : Consult/Referral Spiritual Care Reason for Visit : General Pastoral Care Referral From : Nurse Spiritual Care Emotional Assessment : Happy, Accepting of Situation Spiritual Care Intervention : Words of Encouragement, Supportive presence, Conversation Spiritual Outcomes : Spiritual Resources Stirred Pastoral Care Comments : Supported the patient and offered to help journey with him as part of the care team. Patient was happy he may go home. He appreciated the support and offer. Pastoral Care Visit Length : 15 minute(s) Osmel Chandler - 12/24/2024 10:11 EST Digitally Signed by Osmel Chandler on 12/24/2024 09:50 AM Digitally Signed by Osmel Chandler on 12/24/2024 10:11 AM [facility] [id number] Note Date of Service 12/23/2024 Reason for Consultation BRBPR Referring Physician Cardiology History of Present Illness 84-year-old male with past medical history significant for chronic kidney disease, frequent PVCs, hypertension, hypothyroidism, paroxysmal atrial fibrillation (not on anticoagulation), recurrent syncope status post loop recorder and right bundle branch block. Patient presented to [facility] af ter experiencing a syncopal episode while out to lunch with his . Per documentation, patient was lightheaded, diaphoretic and vomited following the syncopal episode. Interrogation of patient's loop recorder was completed which did demonstrate a 3-second sinus pause that correlated with the syncopal event. While at [facility], patient was having episodes of bradycardia and was subsequently transferred to [facility] for further evaluation. Patient underwent permanent pacemaker placement with Dr. Rosas on 12/22/2024. This evening, it was noted that patient had bright red blood present in his brief. Hospitalist services are being consulted for evaluation of bright red blood per rectum episode. Lab results were personally reviewed. Hemoglobin stable at 13.7 and hematocrit 38.8. Patient is alert and oriented, but forgetful. He states he has hemorrhoids and experiences a flare approximatelyevery 3 months where they will bleed. Patient reports his last colonoscopy was around 20+ years agoand he was told he had diverticular disease and multiple internal and external hemorrhoids. He states he takes a stool softener at home for constipation to prevent his hemorrhoids from bleeding secondary to straining. Patient states he had a very small bowel movement today and he has been passing alot of gas. States there was no blood present in his stool this morning. He denies fever, chest pain, shortness of breath, change in bowel habits, hematochezia, melena, abdominal pain or bloating, orpainful bowel movements. He denies current lightheadedness or dizziness. He denies any family history of colon cancer. Review of Systems I reviewed constitutional, HEENT, cardiovascular, respiratory, GI, , skin, musculoskeletal, neurologic, hematologic, and psychiatric. All systems reviewed and are negative except as noted above in the HPI. Physical Exam Vitals and Measurements T: 36.6 C (Oral) TMIN: 36.5 C (Oral) TMAX: 36.9 C (Oral) HR: 70 (Monitored) RR: 18 BP: 148/74 SpO2:96% Weight Dosing Weight: 78.6 kg (12/20/24) Physical Exam General: Alert and oriented. Calm and cooperative. Does not appear to be in any acute distress. Skin: [place], warm, dry, intact and normal for ethnicity. Normal skin texture and turgor. No lesions,open areas or rash. HEENT: Head is normocephalic and atraumatic. PERRLA. Extraocular movements grossly intact. Cardiovascular: Regular rate and rhythm. No murmur, gallop, or rub. Normal S1 and S2. Respiratory: Lungs clear to auscultation bilaterally in all lobes, posteriorly and anteriorly. No presence of adventitious sounds. Gastrointestinal/Abdominal: Bowel sounds present in all 4 quadrants. Abdomen is soft, nontender andnondistended. No guarding, pulsations, or rebound tenderness present. No palpable fullness or masses. Rectal: Grade 3 external hemorrhoids present. No anal fissure. No rectal bleeding. Lab Results 12/23 22:38 Hgb: 13.6 Hct: 39.0 L 12/23 04:16 WBC: 10.7 Hgb: 13.7 Hct: 38.8 L Platelet: 215 Neutrophil %: 72.1 Glucose Level: 116 H Sodium Level: 134 L Potassium Level: 4.7 BUN: 29.0 H Creatinine Lvl (s): 1.95 H Assessment/Plan Bright red blood per rectum Syncopal episode secondary to sinus pause Bradycardia status post permanent pacemaker placement Other past medical history includes CKD, frequent PVCs, HTN, hypothyroidism, paroxysmal afib and RBBB Bright red blood per rectum -Likely related to hemorrhoids secondary to constipation -Grade 3 external hemorrhoids present on rectal exam -States rectal bleeding from hemorrhoids occurs at home. States he has to manually push back in hishemorrhoids frequently. -CBC is stable with hemoglobin at 13.7 -Patient asymptomatic -FOBT not necessary as results may be skewed with hemorrhoidal bleeding -States he had a very small bowel movement this morning, but has been passing gas. Expresses concerns for constipation -Will order scheduled Senna-S and MiraLAX -Continue to monitor for hematochezia -Encouraged patient to avoid straining during a bowel movement and increase fiber intake -Repeat CBC to assess for acute blood loss anemia -Encouraged follow-up with GI outpatient to discuss further interventions for management of hemorrhoids All other acute and chronic conditions are being managed by primary team. DVT and pain prophylaxis per primary team Labs and diagnostics as noted in HPI Thank you for requesting our participation in the care of your patient. We will continue to follow during hospitalization. Document transcribed with voice recognition and may contain typographical errors Problem List/Past Medical History Ongoing CKD (chronic kidney disease) Essential hypertension Paroxysmal atrial fibrillation PVC (premature ventricular contraction) RBBB Procedure/Surgical History Implantable pacemaker battery: 12/22/24 Implantation of insertable loop recorder: 12/15/24 Cardiovascular stress testin08/10/23 Holter monitor: 06/07/23 Echocardiogram: 05/04/22 Echocardiogram: 08/07/18 History of appendectomy Nasal septoplasty History of nephrectomy History of cholecystectomy Medications Inpatient acetaminophen, 650 mg= 2 tab(s), Oral, q6hr, PRN atropine, 1 mg= 10 mL, IV Push, AsDirected, PRN Centrum, 1 tab(s), Oral, qDay cholecalciferol 50 mcg (2000 intl units) oral tablet, 50 mcg= 1 tab(s), Oral, qDay Dextrose 50% IV Push, 25 gram(s)= 50 mL, IV Push, AsDirected, PRN docusate-senna 50 mg-8.6 mg oral tablet, 1 tab(s), Oral, BID hydroCHLOROthiazide, 12.5 mg= 1 tab(s), Oral, qDay levothyroxine, 50 mcg= 1 tab(s), Oral, qDay magnesium sulfate for IV bolus, 2 gram(s)= 50 mL, IV Piggyback, AsDirected, PRN magnesium sulfate for IV bolus, 4 gram(s)= 100 mL, IV Piggyback, AsDirected, PRN magnesium sulfate for IV bolus mexiletine, 200 mg= 1 cap(s), Oral, q8h Miralax Powder Packet, 17 gram(s)= 15 mL, Oral, qDay morphine, 1 mg= 0.5 mL, IV Push, q1h, PRN Nitrostat, 0.4 mg= 1 tab(s), Sublingual, q5min, PRN NO METFORMIN (Glucophage) X 48hrs-patient has received contrast, 1 EA, Miscellaneous, Unscheduled [place] 325- 5 mg oral tablet, 1 tab(s), Oral, q4h, PRN potassium chloride, 20 mEq= 1 tab(s), Oral, AsDirected, PRN potassium chloride, 40 mEq= 2 tab(s), Oral, AsDirected, PRN potassium chloride, 40 mEq= 2 tab(s), Oral, AsDirected, PRN potassium chloride bolus, 20 mEq= 100 mL, IV Piggyback, AsDirected, PRN Toprol-XL, 12.5 mg= 0.5 tab(s), Oral, qDay Tylenol, 650 mg= 2 tab(s), Oral, q4h, PRN Tylenol, 650 mg= 2 tab(s), Oral, q4h, PRN Home Centrum Silver oral tablet, 1 tab(s), Oral, qDay chlorpheniramine, Oral hydroCHLOROthiazide 12.5 mg oral capsule, 12.5 mg= 1 cap(s), Oral, Daily, 1 refills levothyroxine 50 mcg (0.05 mg) oral tablet magnesium glycinate 200 mg oral tablet, 100 mg= 0.5 tab(s), Oral mexiletine 200 mg oral capsule, 200 mg= 1 cap(s), Oral, q8h, 3 refills potassium chloride 99 mg oral tablet, 99 mg= 1 tab(s), Oral, 2X/week saw palmetto oral capsule Toprol-XL 25 mg oral tablet, extended release, 12.5 mg= 0.5 tab(s), Oral, qDay, 3 refills Vitamin D2 50 mcg (2000 intl units) oral capsule, 50 mcg= 1 cap(s), Oral, qDay Allergies Animal Dander unknown Mold unknown Pollen unknown amoxicillin nausea / vomitting lisinopril Headaches penicillin Syncope, Vomit, Nausea Social History Alcohol Use: Never., 07/20/2023 Home/Environment Living situation: Home/Independent., 12/15/2024 Nutrition/Health Caffeine intake amount: 2 cups of coffee and 2 cups of tea daily., 07/20/2023 Sexual Self described orientation: Straight or heterosexual. Gender Identity: Identifies as male., 12/15/2024 Substance Abuse Use: Never., 07/20/2023 Tobacco Nicotine Use: Former smoker, quit more than 30 days ago. Type: Oral (Snuff, Chew)., 02/25/2024 Digitally Signed by KEHINDE KELLY on 12/24/2024 04:19 AM [id number] Cardiology Progress note Date of Service 12/23/2024 Paged by RN that the patient noticed bright red blood in his depends. Reportedly patient has a history of diverticulitis although not documented in our chart here. Noted patient was discharged earlier this afternoon, however therapy is recommending inpatient rehab. Discussed with the attending, requesting to keep him for placement and hospitalist evaluation for lower GI bleed. Digitally Signed by PRAVEEN RASHEED DO on 12/23/2024 05:59 PM [facility] [id number] Discharge summary Date of Service 12/23/2024 12:08:54 Discharge Diagnosis Syncopal episode secondary to sinus pauses Right bundle branch block History of frequent PVCs, on mexiletine Isolated atrial fibrillation event currently not on anticoagulation Hypertension Hypothyroidism CKD (Baseline Cr 1.7-1.8) Hospital Course 84-year-old male with history of frequent PVCs (14% burden--> 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 Patient has been having these recurrent syncopal episodes for some time now where he will usually be doing something nonexertional, get a sensation that he is about to pass out, before experiencing syncope. Patient recently had a EP study done on December 15 and which demonstrated acceptable His-Purkinje conduction with a HV of 60 ms. Loop recorder was placed. Today he had gone to have lunch with his when he again experienced a syncopal episode. EMS was called, and interrogation of loop recorder demonstrated a 3-second sinus pause that correlated with the event. Workup at [place] was largely unremarkable however it was noted that he was having episodesof bradycardia into the high 40s. Patient had a rapid response here for brief unresponsiveness, with heart rates in the low 30s requiring atropine. EP consulted. Patient underwent successful pacemaker placement without complication. Postprocedural chest x-ray shows no pneumothorax. Patient is stable for discharge with EP follow-up. Allergies Animal Dander unknown Mold unknown Pollen unknown amoxicillin nausea / vomitting lisinopril Headaches penicillin Syncope, Vomit, Nausea Consults Consult to Occupational Therapy (OT Consult) - Ordered -- 12/23/24 1:19:00 EST, Once, Routine, Decreased balance/fall history Consult to Physical Therapy (PT Consult) - Ordered -- 12/23/24 1:19:00 EST, Once, Routine, Decreased mobility Consult to Spiritual Care Team (Consult to Pastoral Care) - Ordered -- 12/20/24 20:56:04 EST Imaging Results and Diagnostics XR Chest 2 Views Result Date: December 23, 2024 Verified By: SCOUT DAWSON MD CLINICAL STATEMENT: IMPRESSION: Stable appearing left-sided dual lead cardiac pacer device. No evidence ofpneumothorax.Interval improvement in the left-sided trace pleural effusion when comparedto yesterday's exam. I have personally reviewed the images of this examination and agree with theresident's findings and interpretation. XR Chest 1 View Result Date: December 22, 2024 Verified By: NIKHIL FIELD DO CLINICAL STATEMENT: IMPRESSION: Suspect minimal trace left pleural effusion. Minimal overlying left basilarsubsegmentalatelectasis. Left-sided pacemaker with leads projecting over the right atrium and rightventricle. No pneumothorax. I have personally reviewed the images of this examination and agree with theresident's findings and interpretation. Physical Exam Vitals and Measurements T: 36.7 C (Oral) TMIN: 36.3 C (Oral) TMAX: 36.7 C (Oral) HR: 69 (Monitored) RR: 18 BP: 130/80 SpO2:98% Weight Dosing Weight: 78.6 kg (12/20/24) General: AAOX3, NAD HEENT: Anicteric sclera, MMM Neck: Trachea midline, no JVD appreciated CVS: RRR, normal S1/S2, no murmurs/rubs/gallops Lung: CTAB, no wheezes/rhonchi/rales Abd: Soft, NT/ND Extrem: WWP, no LE edema Skin: Warm, Intact Neuro: AAOX3, spontaneous movement of all extremities Psych: Appropriate mood & affect Code Status Code Status - Ordered -- 12/21/24 19:38:00 EST, Full Code, Constant Order Admission Date 12/20/2024 20:12:00 Discharge Date 12/23/2024 12:09:02 Medications Unchanged chlorpheniramineby mouth. ergocalciferol (Vitamin D2 50 mcg (2000 intl units) oral capsule)1 cap by mouth once a day. with food. herbal/nutritional product (saw palmetto oral capsule) hydroCHLOROthiazide (hydroCHLOROthiazide 12.5 mg oral capsule)1 cap by mouth every day. Refills: 1. levothyroxine (levothyroxine 50 mcg (0.05 mg) oral tablet)take 1 tablet by mouth every morning. magnesium glycinate (magnesium glycinate 200 mg oral tablet)0.5 tab(s) by mouth. metoprolol (Toprol-XL 25 mg oral tablet, extended release)0.5 tab(s) by mouth once a day for 90 Days. Refills: 3. mexiletine (mexiletine 200 mg oral capsule)1 cap by mouth every 8 hours for 30 Days. Refills: 3. multivitamin with minerals (Centrum Silver oral tablet)1 tab(s) by mouth once a day. potassium chloride (potassium chloride 99 mg oral tablet)1 tab(s) by mouth twice a week. Follow Up Follow Up with Readmission Risk Score Additional Information: 10 Follow Up with BRAYDEN BALDERRAMA When:Within 1-2 days Where:[address] [place] [address] [phone] Business (1) Follow Up Appointments No qualifying data available. Follow Up Labs/Studies Discharge Labs No Follow-up Labs Discharge Studies No Follow-up Studies Discharge Diet Discharge Diet - Ordered -- Type of Diet: Cardiac, 12/23/24 12:08:00 EST Discharge Activity Discharge Activity - Ordered -- Lifting Restricted less than 5 pounds, 12/23/24 12:08:00 EST Condition on Discharge good Discharge Disposition home Digitally Signed by WINNIE GAR DO on 12/23/2024 12:11 PM [facility] [id number] Discharge summary Date of Service 12/23/2024 12:08:54 Discharge Diagnosis Syncopal episode secondary to sinus pauses Right bundle branch block History of frequent PVCs, on mexiletine Isolated atrial fibrillation event currently not on anticoagulation Hypertension Hypothyroidism CKD (Baseline Cr 1.7-1.8) Hospital Course 84-year-old male with history of frequent PVCs (14% burden--> 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 Patient has been having these recurrent syncopal episodes for some time now where he will usually be doing something nonexertional, get a sensation that he is about to pass out, before experiencing syncope. Patient recently had a EP study done on December 15 and which demonstrated acceptable His-Purkinje conduction with a HV of 60 ms. Loop recorder was placed. Today he had gone to have lunch with his when he again experienced a syncopal episode. EMS was called, and interrogation of loop recorder demonstrated a 3-second sinus pause that correlated with the event. Workup at [place] was largely unremarkable however it was noted that he was having episodesof bradycardia into the high 40s. Patient had a rapid response here for brief unresponsiveness, with heart rates in the low 30s requiring atropine. EP consulted. Patient underwent successful pacemaker placement without complication. Postprocedural chest x-ray shows no pneumothorax. Patient is stable for discharge with EP follow-up. Allergies Animal Dander unknown Mold unknown Pollen unknown amoxicillin nausea / vomitting lisinopril Headaches penicillin Syncope, Vomit, Nausea Consults Consult to Occupational Therapy (OT Consult) - Ordered -- 12/23/24 1:19:00 EST, Once, Routine, Decreased balance/fall history Consult to Physical Therapy (PT Consult) - Ordered -- 12/23/24 1:19:00 EST, Once, Routine, Decreased mobility Consult to Spiritual Care Team (Consult to Pastoral Care) - Ordered -- 12/20/24 20:56:04 EST Imaging Results and Diagnostics XR Chest 2 Views Result Date: December 23, 2024 Verified By: SCOUT DAWSON MD CLINICAL STATEMENT: IMPRESSION: Stable appearing left-sided dual lead cardiac pacer device. No evidence ofpneumothorax.Interval improvement in the left-sided trace pleural effusion when comparedto yesterday's exam. I have personally reviewed the images of this examination and agree with theresident's findings and interpretation. XR Chest 1 View Result Date: December 22, 2024 Verified By: NIKHIL FIELD DO CLINICAL STATEMENT: IMPRESSION: Suspect minimal trace left pleural effusion. Minimal overlying left basilarsubsegmentalatelectasis. Left-sided pacemaker with leads projecting over the right atrium and rightventricle. No pneumothorax. I have personally reviewed the images of this examination and agree with theresident's findings and interpretation. Physical Exam Vitals and Measurements T: 36.7 C (Oral) TMIN: 36.3 C (Oral) TMAX: 36.7 C (Oral) HR: 69 (Monitored) RR: 18 BP: 130/80 SpO2:98% Weight Dosing Weight: 78.6 kg (12/20/24) General: AAOX3, NAD HEENT: Anicteric sclera, MMM Neck: Trachea midline, no JVD appreciated CVS: RRR, normal S1/S2, no murmurs/rubs/gallops Lung: CTAB, no wheezes/rhonchi/rales Abd: Soft, NT/ND Extrem: WWP, no LE edema Skin: Warm, Intact Neuro: AAOX3, spontaneous movement of all extremities Psych: Appropriate mood & affect Code Status Code Status - Ordered -- 12/21/24 19:38:00 EST, Full Code, Constant Order Admission Date 12/20/2024 20:12:00 Discharge Date 12/23/2024 12:09:02 Medications Unchanged chlorpheniramineby mouth. ergocalciferol (Vitamin D2 50 mcg (2000 intl units) oral capsule)1 cap by mouth once a day. with food. herbal/nutritional product (saw palmetto oral capsule) hydroCHLOROthiazide (hydroCHLOROthiazide 12.5 mg oral capsule)1 cap by mouth every day. Refills: 1. levothyroxine (levothyroxine 50 mcg (0.05 mg) oral tablet)take 1 tablet by mouth every morning. magnesium glycinate (magnesium glycinate 200 mg oral tablet)0.5 tab(s) by mouth. metoprolol (Toprol-XL 25 mg oral tablet, extended release)0.5 tab(s) by mouth once a day for 90 Days. Refills: 3. mexiletine (mexiletine 200 mg oral capsule)1 cap by mouth every 8 hours for 30 Days. Refills: 3. multivitamin with minerals (Centrum Silver oral tablet)1 tab(s) by mouth once a day. potassium chloride (potassium chloride 99 mg oral tablet)1 tab(s) by mouth twice a week. Follow Up Follow Up with Readmission Risk Score Additional Information: 10 Follow Up with BRAYDEN BALDERRAMA When:Within 1-2 days Where:[address] [facility] [address] [place] [address] [phone] Business (1) Follow Up Appointments No qualifying data available. Follow Up Labs/Studies Discharge Labs No Follow-up Labs Discharge Studies No Follow-up Studies Discharge Diet Discharge Diet - Ordered -- Type of Diet: Cardiac, 12/23/24 12:08:00 EST Discharge Activity Discharge Activity - Ordered -- Lifting Restricted less than 5 pounds, 12/23/24 12:08:00 EST Condition on Discharge good Discharge Disposition home Digitally Signed by WINNIE GAR DO on 12/23/2024 12:11 PM [facility] [id number] Note* Exam Date Time Procedure Performing Provider Status 12/23/24 11:27 AM XR Chest 2 Views SCOUT DAWSON MD; [facility] (Verified) [id number] ORIGINAL EXAMINATION: TWO XRAY VIEWS OF THE CHEST12/23/2024 11:28 am COMPARISON: 12/22/2024 HISTORY: ORDERING SYSTEM PROVIDED HISTORY: Reason for Exam: Evaluate for pneumothorax/lead position post pacer/ICD insertion FINDINGS: Cardiomediastinal contours appear stable. Aortic atherosclerosis is noted. Again seen is a left-sided dual lead cardiac pacer, with lead positions unchanged in the right atrium and right ventricle. No focal consolidation or pulmonary edema. Left basilar atelectasis is likely. No pneumothorax or pleural effusion. Interval resolution of previously seen trace left pleural effusion. No acute osseous abnormalities. Degenerative changes of the spine. IMPRESSION: Stable appearing left-sided dual lead cardiac pacer device. No evidence of pneumothorax. Interval improvement in the left-sided trace pleural effusion when compared to yesterday's exam. I have personally reviewed the images of this examination and agree with the resident's findings and interpretation. Interpreted by: Scout Dawson MD Preliminary Report By: Kristie Escalante Electronically signed By Scout Dawson MD Dictated Date: 12/23/2024 11:38:27 AM Prelim Date: 12/23/2024 11:56:24 AM Sign Date: 12/23/2024 11:56:24 AM Ordering Provider: DIGNA LUCERO [facility] [id number] Note* Exam Date Time Procedure Performing Provider Status 12/22/24 5:39 PM XR Chest 1 View NIKHIL FIELD DO; [facility] (Verified) [id number] ORIGINAL EXAMINATION: ONE XRAY VIEW OF THE CHEST12/22/2024 5:40 pm COMPARISON: None. HISTORY: ORDERING SYSTEM PROVIDED HISTORY: Reason for Exam: Evaluate for pneumothorax/lead position post pacer/ICD insertion FINDINGS: Left-sided pacemaker with leads projecting over the expected area of the right atrium and right ventricle. The cardiomediastinal silhouette is unremarkable. No cardiomegaly. There is no pulmonary vascular congestion. Minimal left basilar subsegmental atelectasis. Suspect minimal trace left pleural effusion. No pneumothorax. IMPRESSION: Suspect minimal trace left pleural effusion. Minimal overlying left basilar subsegmental atelectasis. Left-sided pacemaker with leads projecting over the right atrium and right ventricle. No pneumothorax. I have personally reviewed the images of this examination and agree with the resident's findings and interpretation. Interpreted by: Nikhil Field Preliminary Report By: Javan Olson Electronically signed By Nikhil Field Dictated Date: 12/22/2024 7:06:16 PM Prelim Date: 12/22/2024 7:08:18 PM Sign Date: 12/22/2024 7:11:13 PM Ordering Provider: VENITA BRANCH [facility] [id number] Note* Exam Date Time Procedure Performing Provider Status 12/22/24 5:10 PM Electrocardiogram - EKG - CV SAMUEL TSANG MD; Auth (Verified) ECG Final Report ATRIAL-SENSED VENTRICULAR-PACED COMPLEXES LOW QRS VOLTAGE IN EXTREMITY LEADS Electronic Signature: SAMUEL TSANG MD 12/23/2024 19:01:47 [facility] [id number] Cardiology Progress note Date of Service 12/22/2024 11:45:24 Chief Complaint 84-year-old male with history of frequent PVCs (14% burden--> 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 Patient has been having these recurrent syncopal episodes for some time now where he will usually be doing something nonexertional, get a sensation that he is about to pass out, before experiencing syncope. Patient recently had a EP study done on December 15 and which demonstrated acceptable His-Purkinje conduction with a HV of 60 ms. Loop recorder was placed. Today he had gone to have lunch with his when he again experienced a syncopal episode. EMS was called, and interrogation of loop recorder demonstrated a 3-second sinus pause that correlated with the event. Workup at [place] was largely unremarkable however it was noted that he was having episodesof bradycardia into the high 40s. Patient's cardiac meds include Toprol 12.5 mg daily, mexiletine 200 mg 3 times daily, and hydrochlorothiazide 12.5 mg daily. Subjective Had another unresponsive episode this morning. HR 39 Objective Vitals and Measurements T: 36.3 C (Oral) TMIN: 36.3 C (Oral) TMAX: 36.7 C (Oral) HR: 81 (Monitored) RR: 18 BP: 133/65 SpO2:95% Intake and Output 7AM Yesterday to 7AM Today Intake and Output (Last 24 hours) Intake Oral Intake 480.00 Output Urine Voided 1850.00 Stool Count 0.00 Urine Count 2.00 Total Summary Total Intake 480.00 Total Output 1850.00 Fluid Balance -1370.00 Physical Exam General: AAOX3, NAD HEENT: Anicteric sclera, MMM Neck: Trachea midline, no JVD appreciated CVS: RRR, normal S1/S2, no murmurs/rubs/gallops Lung: CTAB, no wheezes/rhonchi/rales Abd: Soft, NT/ND Extrem: WWP, no LE edema Skin: Warm, Intact Neuro: AAOX3, spontaneous movement of all extremities Psych: Appropriate mood & affect Weight Dosing Weight: 78.6 kg (12/20/24) Medications Medications (14) Active Scheduled: (5) cholecalciferol 50 mcg tablet (Vit D3 2000 unit(s)) 50 mcg 1 tab(s), Oral, qDay levothyroxine 50 mcg tablet 50 mcg 1 tab(s), Oral, qDay mexiletine 200 mg capsule 200 mg 1 cap(s), Oral, q8h multivitamin (Myadec) with minerals Therapeutic Multiple Vitamins with Minerals Tablet 1 tab(s), Oral, qDay vancomycin PMX 1,250 mg 250 mL, IV Piggyback, PREOP pharm Continuous: (0) PRN: (9) atropine 0.1 mg/mL 10 mL SYRINGE 1 mg 10 mL, IV Push, AsDirected dextrose 50% Solution Disp syringe 50 mL 25 gram(s) 50 mL, IV Push, AsDirected magnesium sulfate 4 gram(s)/100mL PMX 4 g 100 mL, IV Piggyback, AsDirected magnesium sulfate 50% (500mg/mL) 6 g 12 mL, IV Piggyback, AsDirected magnesium sulfate PMX 2 g 50 mL, IV Piggyback, AsDirected potassium chloride (PMX) 20 mEq/100 mL 20 mEq 100 mL, IV Piggyback, AsDirected potassium chloride 20 mEq ER tablet 20 mEq 1 tab(s), Oral, AsDirected potassium chloride 20 mEq ER tablet 40 mEq 2 tab(s), Oral, AsDirected potassium chloride 20 mEq ER tablet 40 mEq 2 tab(s), Oral, AsDirected Lab Results 12/22 08:20 Protime: 12.2 PT International Ratio: 1.1 12/22 02:44 WBC: 10.0 Hgb: 14.2 Hct: 41.4 Platelet: 236 Neutrophil %: 54.3 Glucose Level: 93 Sodium Level: 138 Potassium Level: 4.6 BUN: 28.0 H Creatinine Lvl (s): 1.83 H 12/21 02:53 WBC: 9.7 Hgb: 13.7 Hct: 39.3 L Platelet: 201 Neutrophil %: 60.9 Glucose Level: 129 H Sodium Level: 137 Potassium Level: 4.3 BUN: 31.0 H Creatinine Lvl (s): 1.74 H EKG EKG - Completed -- 12/20/24 20:14:00 EST, Admission Electrocardiogram (EKG) - InProcess -- 12/21/24 17:56:00 EST Assessment/Plan Syncopal episode secondary to sinus pauses Right bundle branch block History of frequent PVCs, on mexiletine Isolated atrial fibrillation event currently not on anticoagulation Hypertension Hypothyroidism CKD (Baseline Cr 1.7-1.8) Patient presenting for syncopal episode in the setting of a 3-second sinus pause. Recent EP study did not demonstrate any conduction issues within the His- Purkinje system. Loop recorder did demonstrate a 3-second sinus pause that correlated with the syncopal episode. Patient also on an antihistamine and a beta-katrina at home which could have contributed to his symptoms as well. Will discontinue his chlorpheniramine as well as his Toprol and allow for beta- katrina washout. Will hold his antihypertensive meds to allow for permissive hypertension. Will continue to monitor on telemetry and repeat his TSH. No need for repeat echocardiogram as patient just had an echocardiogram done on 05 December. Consult EP for PPM placement - plan for today [1] History and Physical; SHERLY WEINBERG MD 12/20/2024 21:31 EST Digitally Signed by WINNIE GAR DO on 12/22/2024 11:46 AM [facility] [id number] Note* Exam Date Time Procedure Performing Provider Status 12/22/24 2:41 PM Permanent Pacemaker - CV VENITA BRANCH MD; Auth (Verified) [facility] [id number] Cardiology Progress note Date of Service 12/22/2024 11:45:24 Chief Complaint 84-year-old male with history of frequent PVCs (14% burden--> 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 Patient has been having these recurrent syncopal episodes for some time now where he will usually be doing something nonexertional, get a sensation that he is about to pass out, before experiencing syncope. Patient recently had a EP study done on December 15 and which demonstrated acceptable His-Purkinje conduction with a HV of 60 ms. Loop recorder was placed. Today he had gone to have lunch with his when he again experienced a syncopal episode. EMS was called, and interrogation of loop recorder demonstrated a 3-second sinus pause that correlated with the event. Workup at [place] was largely unremarkable however it was noted that he was having episodesof bradycardia into the high 40s. Patient's cardiac meds include Toprol 12.5 mg daily, mexiletine 200 mg 3 times daily, and hydrochlorothiazide 12.5 mg daily. Subjective Had another unresponsive episode this morning. HR 39 Objective Vitals and Measurements T: 36.3 C (Oral) TMIN: 36.3 C (Oral) TMAX: 36.7 C (Oral) HR: 81 (Monitored) RR: 18 BP: 133/65 SpO2:95% Intake and Output 7AM Yesterday to 7AM Today Intake and Output (Last 24 hours) Intake Oral Intake 480.00 Output Urine Voided 1850.00 Stool Count 0.00 Urine Count 2.00 Total Summary Total Intake 480.00 Total Output 1850.00 Fluid Balance -1370.00 Physical Exam General: AAOX3, NAD HEENT: Anicteric sclera, MMM Neck: Trachea midline, no JVD appreciated CVS: RRR, normal S1/S2, no murmurs/rubs/gallops Lung: CTAB, no wheezes/rhonchi/rales Abd: Soft, NT/ND Extrem: WWP, no LE edema Skin: Warm, Intact Neuro: AAOX3, spontaneous movement of all extremities Psych: Appropriate mood & affect Weight Dosing Weight: 78.6 kg (12/20/24) Medications Medications (14) Active Scheduled: (5) cholecalciferol 50 mcg tablet (Vit D3 2000 unit(s)) 50 mcg 1 tab(s), Oral, qDay levothyroxine 50 mcg tablet 50 mcg 1 tab(s), Oral, qDay mexiletine 200 mg capsule 200 mg 1 cap(s), Oral, q8h multivitamin (Myadec) with minerals Therapeutic Multiple Vitamins with Minerals Tablet 1 tab(s), Oral, qDay vancomycin PMX 1,250 mg 250 mL, IV Piggyback, PREOP pharm Continuous: (0) PRN: (9) atropine 0.1 mg/mL 10 mL SYRINGE 1 mg 10 mL, IV Push, AsDirected dextrose 50% Solution Disp syringe 50 mL 25 gram(s) 50 mL, IV Push, AsDirected magnesium sulfate 4 gram(s)/100mL PMX 4 g 100 mL, IV Piggyback, AsDirected magnesium sulfate 50% (500mg/mL) 6 g 12 mL, IV Piggyback, AsDirected magnesium sulfate PMX 2 g 50 mL, IV Piggyback, AsDirected potassium chloride (PMX) 20 mEq/100 mL 20 mEq 100 mL, IV Piggyback, AsDirected potassium chloride 20 mEq ER tablet 20 mEq 1 tab(s), Oral, AsDirected potassium chloride 20 mEq ER tablet 40 mEq 2 tab(s), Oral, AsDirected potassium chloride 20 mEq ER tablet 40 mEq 2 tab(s), Oral, AsDirected Lab Results 12/22 08:20 Protime: 12.2 PT International Ratio: 1.1 12/22 02:44 WBC: 10.0 Hgb: 14.2 Hct: 41.4 Platelet: 236 Neutrophil %: 54.3 Glucose Level: 93 Sodium Level: 138 Potassium Level: 4.6 BUN: 28.0 H Creatinine Lvl (s): 1.83 H 12/21 02:53 WBC: 9.7 Hgb: 13.7 Hct: 39.3 L Platelet: 201 Neutrophil %: 60.9 Glucose Level: 129 H Sodium Level: 137 Potassium Level: 4.3 BUN: 31.0 H Creatinine Lvl (s): 1.74 H EKG EKG - Completed -- 12/20/24 20:14:00 EST, Admission Electrocardiogram (EKG) - InProcess -- 12/21/24 17:56:00 EST Assessment/Plan Syncopal episode secondary to sinus pauses Right bundle branch block History of frequent PVCs, on mexiletine Isolated atrial fibrillation event currently not on anticoagulation Hypertension Hypothyroidism CKD (Baseline Cr 1.7-1.8) Patient presenting for syncopal episode in the setting of a 3-second sinus pause. Recent EP study did not demonstrate any conduction issues within the His- Purkinje system. Loop recorder did demonstrate a 3-second sinus pause that correlated with the syncopal episode. Patient also on an antihistamine and a beta-katrina at home which could have contributed to his symptoms as well. Will discontinue his chlorpheniramine as well as his Toprol and allow for beta- katrina washout. Will hold his antihypertensive meds to allow for permissive hypertension. Will continue to monitor on telemetry and repeat his TSH. No need for repeat echocardiogram as patient just had an echocardiogram done on 05 December. Consult EP for PPM placement - plan for today [1] History and Physical; SHERLY WEINBERG MD 12/20/2024 21:31 EST Digitally Signed by WINNIE GAR DO on 12/22/2024 11:46 AM [facility] [id number] Cardiology Consult note Date of Service 12/22/34 Reason for Consultation syncope, cardiac pause Referring Physician Dr Turner Primary CV: Dr Harvey Primary EP: Dr Rosas History of Present Illness 84-year-old male with history of syncope s/p EP Study (negative for significant infranodal disease)s/p loop recorder, frequent PVCs (14% burden--> 0.9% with meds), RBBB, hypertension, isolated AFevent, referred by Dr Ochoa for PVCs. He presented with syncope after eating. Patient got lightheaded. Woke up sweaty, vomited. helped him. No injury. Loop recorder showed sinus slowing and then > 3 second pause. Review of Systems Constitutional Symptoms: Denies weight loss/gain, fever/chills, or sweats Integumentary: Denies color changes, rash, sores, or lumps Eyes: Denies vision changes, blurriness, or pain ENT: Denies epistaxis, sore throat, or dysphagia Cardiovascular: See HPI Respiratory: Denies cough, sputum, or hemoptysis Musculoskeletal: Denies new pain, weakness, or swelling Gastrointestinal: Denies nausea, vomiting, GERD, diarrhea, constipation, abdominal pain, or hematemesis Neurological: Denies seizures, coordination issues, or paralysis Genitourinary: Denies dysuria, hematuria, burning, or renal stones Hematologic/Lymphatic: Denies bleeding disorders, night sweats, or tenderness of lymph nodes Psychiatric: Denies recent anxiety or depressive episodes. Physical Exam Vitals and Measurements T: 36.5 C (Oral) TMIN: 36.4 C (Oral) TMAX: 36.7 C (Oral) HR: 61 (Monitored) RR: 18 BP: 133/66 SpO2:97% Weight Dosing Weight: 78.6 kg (12/20/24) General Appearance: Alert and oriented x3, no apparent distress Head: Normocephalic, atraumatic EENT: EOMI, PERRLA, mucous membranes moist Neck: Supple, no thyromegaly. Cardiac: rrr, no mrg. Lungs: Clear to auscultation bilaterally, no wheezing, rales, rhonchi. Abdomen: Nondistended, nontender, bowel sounds present. Musculoskeletal: No gross deformities. Extremities: no significant lower extremity edema, no calf tenderness, pedal pulses are present bilaterally Neurological: No focal deficits Skin: Warm, dry, intact Psychiatric: Mood congruent, cooperative Lab Results 12/22 02:44 WBC: 10.0 Hgb: 14.2 Hct: 41.4 Platelet: 236 Neutrophil %: 54.3 Glucose Level: 93 Sodium Level: 138 Potassium Level: 4.6 BUN: 28.0 H Creatinine Lvl (s): 1.83 H 12/21 02:53 WBC: 9.7 Hgb: 13.7 Hct: 39.3 L Platelet: 201 Neutrophil %: 60.9 Glucose Level: 129 H Sodium Level: 137 Potassium Level: 4.3 BUN: 31.0 H Creatinine Lvl (s): 1.74 H Imaging Results and Diagnostics pendng EKG NSR with IVCD Assessment/Plan 84-year-old male with history of syncope s/p EP Study (negative for significant infranodal disease)s/p loop recorder, frequent PVCs (14% burden--> 0.9% with meds), RBBB, hypertension, isolated AFevent, referred by Dr Ochoa for PVCs. He presented with syncope after eating. 1. Syncope / Pauses. Sinus node dysfunction vs vasovagal. Either way, he qualifies for pacemaker. The risks versus benefits of the procedure were discussed in great detail with the patient, includingany imponderables, and the patient wishes to proceed. - npo - DDD-pacemaker 2. Comorbid conditions as outlined and described above. Nikhil Rosas MD Cardiac Electrophysiology [phone] Problem List/Past Medical History Ongoing CKD (chronic kidney disease) Essential hypertension Paroxysmal atrial fibrillation PVC (premature ventricular contraction) RBBB Procedure/Surgical History Implantation of insertable loop recorder: 12/15/24 Cardiovascular stress testin08/10/23 Holter monitor: 06/07/23 Echocardiogram: 05/04/22 Echocardiogram: 08/07/18 History of appendectomy Nasal septoplasty History of nephrectomy History of cholecystectomy Medications Inpatient Centrum, 1 tab(s), Oral, qDay cholecalciferol 50 mcg (2000 intl units) oral tablet, 50 mcg= 1 tab(s), Oral, qDay Dextrose 50% IV Push, 25 gram(s)= 50 mL, IV Push, AsDirected, PRN levothyroxine, 50 mcg= 1 tab(s), Oral, qDay magnesium sulfate for IV bolus, 2 gram(s)= 50 mL, IV Piggyback, AsDirected, PRN magnesium sulfate for IV bolus, 4 gram(s)= 100 mL, IV Piggyback, AsDirected, PRN magnesium sulfate for IV bolus mexiletine, 200 mg= 1 cap(s), Oral, q8h potassium chloride, 20 mEq= 1 tab(s), Oral, AsDirected, PRN potassium chloride, 40 mEq= 2 tab(s), Oral, AsDirected, PRN potassium chloride, 40 mEq= 2 tab(s), Oral, AsDirected, PRN potassium chloride bolus, 20 mEq= 100 mL, IV Piggyback, AsDirected, PRN Home Centrum Silver oral tablet, 1 tab(s), Oral, qDay chlorpheniramine, Oral hydroCHLOROthiazide 12.5 mg oral capsule, 12.5 mg= 1 cap(s), Oral, Daily, 1 refills levothyroxine 50 mcg (0.05 mg) oral tablet magnesium glycinate 200 mg oral tablet, 100 mg= 0.5 tab(s), Oral mexiletine 200 mg oral capsule, 200 mg= 1 cap(s), Oral, q8h, 3 refills potassium chloride 99 mg oral tablet, 99 mg= 1 tab(s), Oral, 2X/week saw palmetto oral capsule Toprol-XL 25 mg oral tablet, extended release, 12.5 mg= 0.5 tab(s), Oral, qDay, 3 refills Vitamin D2 50 mcg (2000 intl units) oral capsule, 50 mcg= 1 cap(s), Oral, qDay Allergies Animal Dander unknown Mold unknown Pollen unknown amoxicillin nausea / vomitting lisinopril Headaches penicillin Syncope, Vomit, Nausea Social History Alcohol Use: Never., 07/20/2023 Home/Environment Living situation: Home/Independent., 12/15/2024 Nutrition/Health Caffeine intake amount: 2 cups of coffee and 2 cups of tea daily., 07/20/2023 Sexual Self described orientation: Straight or heterosexual. Gender Identity: Identifies as male., 12/15/2024 Substance Abuse Use: Never., 07/20/2023 Tobacco Nicotine Use: Former smoker, quit more than 30 days ago. Type: Oral (Snuff, Chew)., 02/25/2024 Family History Congestive heart failure: Mother. Heart disease: Mother. Sudden : Father. Health Status Family Member(s) Family Member(s) Relationship: Father, Age: 56 Years, Cause: MS Immunizations No qualifying data available. Digitally Signed by NIKHIL ROSAS MD on 12/22/2024 07:42 AM [facility] [id number] Note* Exam Date Time Procedure Performing Provider Status 12/21/24 6:01 PM Electrocardiogram - EKG - CV SAMUEL TSANG MD; Auth (Verified) ECG Final Report SINUS RHYTHM RIGHT BUNDLE BRANCH BLOCK Electronic Signature: SAMUEL TSANG MD 12/22/2024 22:05:11 [facility] [id number] History and physical note Date of Service 12/20/2024 21:31:46 History of Present Illness 84-year-old male with history of frequent PVCs (14% burden--> 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 Patient has been having these recurrent syncopal episodes for some time now where he will usually be doing something nonexertional, get a sensation that he is about to pass out, before experiencing syncope. Patient recently had a EP study done on December 15 and which demonstrated acceptable His-Purkinje conduction with a HV of 60 ms. Loop recorder was placed. Today he had gone to have lunch with his when he again experienced a syncopal episode. EMS was called, and interrogation of loop recorder demonstrated a 3-second sinus pause that correlated with the event. Workup at [place] was largely unremarkable however it was noted that he was having episodesof bradycardia into the high 40s. Patient's cardiac meds include Toprol 12.5 mg daily, mexiletine 200 mg 3 times daily, and hydrochlorothiazide 12.5 mg daily. Review of Systems Per HPI Physical Exam Vitals and Measurements T: 36.6 C (Oral) HR: 57 (Monitored) RR: 16 BP: 158/72 SpO2: 98% HT: 177.8 cm WT: 78.6 kg BMI: 24.86 Weight Dosing Weight: 78.6 kg (12/20/24) General Appearance: NAD EENT: MOIST MEMBRANES Neck: NO APPRECIABLE JVD Cardiac: RRR Lungs: CTAB Abdomen: NON TENDER TO PALPATION Extremities: NO BILATERAL EDEMA Neurological: AOX3 Psychiatric: NORMAL AFFECT Lab Results CMP 12/15/24 12:42 Glucose Level 88 mg/dL Sodium Level 140 mEq/L Potassium Level 4.4 mEq/L Chloride 105 mEq/L CO2 30 mEq/L Electrolyte Balance 5.0 mEq/L BUN 28.0 mg/dL H Creatinine Lvl (s) 1.78 mg/dL H BUN/Creatinine Ratio 15.7 ratio Calcium Lvl 9.7 mg/dL Estimated Glomerular Filtration Rate 38 ml/min/1.73sqm CBC 12/15/24 12:42 Hct 46.0 % Hgb 15.6 G/dL MCH 30.2 pg MCHC 33.9 G/dL MCV 89.0 fL MPV 8.4 fL Platelet 216 10^3/mcL RBC 5.18 10^6/mcL RDW 14.0 % WBC 8.8 10^3/mcL Cardiac Enzymes No qualifying data available. Lipids No qualifying data available. Imaging Results and Diagnostics Echocardiogram 12/05/2024 Summary: 1. Left ventricle: The cavity size is normal. Wall thickness is mildly increased. Systolic functionis normal. The estimated ejection fraction is 55-60%. Wall motion is normal; there are no regional wall motion abnormalities. Grade I diastolic dysfunction. 2. Mitral valve: There is mild regurgitation. 3. Aortic valve: There is mild stenosis. The valve area by peak velocity is 1.7 cm . 4. Right ventricle: The RV systolic pressure by Doppler is 24 mm Hg. 5. Right atrium: The estimated right atrial pressure is 3 mm Hg. [1] EKG Sinus bradycardia with right bundle branch block. I have personally seen, examined, and evaluated the patient on the encounter date. I have reviewed the fellow s documentation and agree with the fellow s findings and plan as documented, unless otherwise stated. Assessment/Plan Orders: cholecalciferol(cholecalciferol 50 mcg (2000 intl units) oral tablet), 50 mcg= 1 tab(s), Oral, qDay levothyroxine, 50 mcg= 1 tab(s), Oral, qDay mexiletine, 200 mg= 1 cap(s), Oral, q8h multivitamin with minerals(Centrum), 1 tab(s), Oral, qDay Admit to Inpatient, 12/20/24 21:03:00 EST, Level of Care: Stepdown with monitor, Reason for Admission: See History & Physical, Expected Length of Stay: More Than Two Midnights, Diagnosis: pauses,Constant Order Syncopal episode secondary to sinus pauses Right bundle branch block History of frequent PVCs, on mexiletine Isolated atrial fibrillation event currently not on anticoagulation Hypertension Hypothyroidism CKD (Baseline Cr 1.7-1.8) Patient presenting for syncopal episode in the setting of a 3-second sinus pause. Recent EP study did not demonstrate any conduction issues within the His- Purkinje system. Loop recorder did demonstrate a 3-second sinus pause that correlated with the syncopal episode. Patient also on an antihistamine and a beta-katrina at home which could have contributed to his symptoms as well. Will discontinue his chlorpheniramine as well as his Toprol and allow for beta- katrina washout. Will hold his antihypertensive meds to allow for permissive hypertension. Will continue to monitor on telemetry and repeat his TSH. No need for repeat echocardiogram as patient just had an echocardiogram done on 05 December. Will consult EP on Sunday for PPM placement Problem List/Past Medical History Ongoing CKD (chronic kidney disease) Essential hypertension Paroxysmal atrial fibrillation PVC (premature ventricular contraction) RBBB Procedure/Surgical History Implantation of insertable loop recorder: 12/15/24 Cardiovascular stress testin08/10/23 Holter monitor: 06/07/23 Echocardiogram: 05/04/22 Echocardiogram: 08/07/18 History of appendectomy Nasal septoplasty History of nephrectomy History of cholecystectomy Medications Home Medications (10) Active Centrum Silver oral tablet 1 tab(s), Oral, qDay chlorpheniramine , Oral hydroCHLOROthiazide 12.5 mg oral capsule 12.5 mg = 1 cap(s), Oral, Daily levothyroxine 50 mcg (0.05 mg) oral tablet magnesium glycinate 200 mg oral tablet 100 mg = 0.5 tab(s), Oral mexiletine 200 mg oral capsule 200 mg = 1 cap(s), Oral, q8h potassium chloride 99 mg oral tablet 99 mg = 1 tab(s), Oral, 2X/week saw palmetto oral capsule Toprol-XL 25 mg oral tablet, extended release 12.5 mg = 0.5 tab(s), Oral, qDay Vitamin D2 50 mcg (2000 intl units) oral capsule 50 mcg = 1 cap(s), Oral, qDay Allergies Animal Dander unknown Mold unknown Pollen unknown amoxicillin nausea / vomitting lisinopril Headaches penicillin Syncope, Vomit, Nausea Social History Alcohol Use: Never., 07/20/2023 Home/Environment Living situation: Home/Independent., 12/15/2024 Nutrition/Health Caffeine intake amount: 2 cups of coffee and 2 cups of tea daily., 07/20/2023 Sexual Self described orientation: Straight or heterosexual. Gender Identity: Identifies as male., 12/15/2024 Substance Abuse Use: Never., 07/20/2023 Tobacco Nicotine Use: Former smoker, quit more than 30 days ago. Type: Oral (Snuff, Chew)., 02/25/2024 Family History Congestive heart failure: Mother. Heart disease: Mother. Sudden : Father. Health Status Family Member(s) Family Member(s) Relationship: Father, Age: 56 Years, Cause: MS Immunizations No qualifying data available. Code Status No qualifying data available. [1] Echocardiogram, Adult - CV; [facility] 12/05/2024 11:47 EST Digitally Signed by SHERLY WEINBERG MD on 12/21/2024 07:37 AM Digitally Signed by CHANNING TURNER MD on 12/21/2024 11:14 PM [facility] [id number] Note* Exam Date Time Procedure Performing Provider Status 12/20/24 8:26 PM Electrocardiogram - EKG - CV CHANNING TURNER MD; Auth (Verified) ECG Final Report SINUS RHYTHM RIGHT BUNDLE BRANCH BLOCK Electronic Signature: CHANNING TURNER MD 12/21/2024 18:53:25 [facility] [id number] Evaluation + Plan noteExtracted from: Title:History and Physical Author:HASMUKH WEINBERG MD Date:12/20/24 Orders: cholecalciferol(cholecalciferol 50 mcg (2000 intl units) oral tablet), 50 mcg= 1 tab(s), Oral, qDay levothyroxine, 50 mcg= 1 tab(s), Oral, qDay mexiletine, 200 mg= 1 cap(s), Oral, q8h multivitamin with minerals(Centrum), 1 tab(s), Oral, qDay Admit to Inpatient, 12/20/24 21:03:00 EST, Level of Care: Stepdown with monitor, Reason for Admission: See History & Physical, Expected Length of Stay: More Than Two Midnights, Diagnosis: pauses, Constant Order Syncopal episode secondary to sinus pauses Right bundle branch block History of frequent PVCs, on mexiletine Isolated atrial fibrillation event currently not on anticoagulation Hypertension Hypothyroidism CKD (Baseline Cr 1.7-1.8) Patient presenting for syncopal episode in the setting of a 3-second sinus pause. Recent EP study did not demonstrate any conduction issues within the His- Purkinje system. Loop recorder did demonstrate a 3-second sinus pause that correlated with the syncopal episode. Patient also on an antihistamine and a beta-katrina at home which could have contributed to his symptoms as well. Will discontinue his chlorpheniramine as well as his Toprol and allow for beta-katrina washout. Will hold his antihypertensive meds to allow for permissive hypertension. Will continue to monitor on telemetry and repeat his TSH. No need for repeat echocardiogram as patient just had an echocardiogram done on 05 December. Will consult EP on Sunday for PPM placement Future Appointments Appointment Date:01/06/2025 01:00:00 PM Scheduled Provider: Location:[facility] Appointment Type:CV Incision Check Appointment Date:03/26/2025 10:30:00 AM Scheduled Provider: Location:[facility] Appointment Type:CV Office Procedure ICD Appointment Date:06/29/2025 08:45:00 AM Scheduled Provider: Location:[facility] Appointment Type:CV Remote Procedure [facility] [place] 02-24-2025 Hospital Discharge instructions Patient Education 12/15/2024 18:15:05 3-- EP Study/Ablation (07/2018)(CUSTOM) ELECTROPHYSIOLOGY STUDY/ABLATION Discharge Instructions DIET INSTRUCTIONS Resume diet as prior to procedure ACTIVITIES Do not drive FOR 24 HOURS No heavy lifting GREATER THAN 10 POUNDS or pushing or straining FOR 4 DAYS BATHING/SHOWERING May tub bathe in 5 days Do not sit in hot tub, whirlpool, or swim for 5 days May shower today WOUND CARE You may go home with a dressing over your procedure site. Keep this dressing on for the next 24 hours and then remove it leaving the site open to air. Some degree of bruising and tenderness is normal around the procedure site. It will take a while for any bruising to completely resolve. Keep your site clean and dry. You need to report the following to your finishing range feeder: Any draining or oozing from the site Any swelling at the site Any increased pain or tenderness at the site Any numbness in your leg where the procedure was done Any sign of infection WATCH FOR SIGNS OF INFECTION: Elevated temperature above 100.5 Redness or swelling Increased pain Foul odor or drainage. If you have any questions, please call your doctor at the number listed on your follow up instructions. Follow all instructions given to you by your physician. Document Released: 10/08/2006 Document Revised: 09/24/2013 Document Reviewed: 10/09/2014 Exit[employer] Patient Information 2015 [employer]. This information is not intended to replace advicegiven to you by your health care provider. Make sure you discuss any questions you have with your health care provider. 12/15/2024 17:52:04 3- Loop recorder implant.explant 11/2019(CUSTOM) LOOP RECORDER INPLANT/EXPLANT Discharge Instructions WOUND CARE DO NOT place any ointments, creams, powders or lotions on the incision. Call your doctor s office immediately if you have: oIncreased redness oDrainage from the incision oIncreased pain, warmth or swelling on or around the site oFever or chills that you cannot connect with a cold or flu If you have a dressing: oKeep the dressing clean and dry oYou may remove it after 5 days If you do not have a dressing: oDO NOT shower or get the incision wet for 5 days. oDO NOT clean the incision with any soap, water, peroxide or alcohol. oLeave it dry and uncovered for 5 days, then you may shower using soap and water. oWear loose fitting clothes over the incisional site to avoid irritation until it is healed. MEDICATIONS You may take Tylenol (acetaminophen) for incisional pain or discomfort. ACTIVITY RESTRICTIONS You may return to your normal activities after [address] be restricted, especially if you have passed out in the past. Discuss driving restrictions with your unemployment claims adjudicator. FOLLOW UP Follow up with the Pacemaker center for routine evaluation of your device. Your appointment to haveyour device checked and to see the doctor in 12-14 weeks has been scheduled and is listed above in the follow up section of these discharge instructions. Device Monitor Now that you have a permanent pacemaker, ICD, and/or loop recorder (all called a device ) it shouldbe checked regularly. This is done with a monitor that sends information from the device to your unemployment claims adjudicator (heart doctor) office. How will I get my monitor? The monitor will be shipped to your home within 6 weeks after you are discharged. But, if you are given the monitor before discharge, please take it home. You may get other equipment (such as a bloodpressure cuff and weight scale) shipped as well. There is no charge for this equipment. How does the monitor work? The monitor needs to be set up close to where you sleep. The monitor will automatically orange picking supervisor heart signals and send the information to your doctor. Or you may be asked to push a button to send theinformation. What are the next steps? You will have an appointment with the nurse at the Device Clinic in about 2 weeks and the nurse will check your device (you will not see your doctor). The nurses will talk to you about the monitor atthat time. When you get the monitor, there will be clear instructions with how to set it up. Please call the Device Clinic if you have questions. [facility]: [phone] Ask for the Device Clinic or christian-in extension [phone] when prompted. Device Clinic Location: [facility] (not the physician office building). Enter the [facility] and take the elevators to the 2nd floor. Take the rojas to the slight left labeled [facility] . If you are interested, you may find information about your device on the web, including videos thatwill help you understand and set up your monitor. The monitor you will get is based on the company that manufactured your device. Your device card will tell you the dress finisher. Using the search box: Lionseek: Otilia Communicator quick start oPatient Help: Medtronic: MyCareLink quick start oPatient Help: [employer] Dane (Bui): [email or web address] quick start oPatient Help: Other important information about your device: Always carry your device card with you. Your device may set off a metal detector. Be sure you have your device card with you if you plan togo through any area, such as an airport that may have a metal detector. Before having any test or procedure, make sure you tell the healthcare professional that you have an implanted device. Follow Up Care 11/20/2024 15:32:23 With:[facility] Address: [address] [place] [address] [address] [id number]- [phone] When:12/30/2024 11:00:00 With:NIKHIL ROSAS MD Address: [address] [place] [address]- [phone] When:03/02/2025 11:00:00 With:DEVICE [facility] Address: [address] [place] [address]- [phone] When: Unknown With:NIKHIL ROSAS MD Address: [address] [place] [phone]- [phone] When:03/12/2025 14:00:00 [facility] 02-24-2025 Summary of episode note Discharge Instructions Thank you for allowing [facility] to assist you with your healthcare needs. The following is importantdischarge information regarding your hospital visit. Your Care Team BRAYDEN BALDERRAMA MD What to do next Scheduled Follow-Up Appointments Appointment Type When With Where Contact Information StatusCV Incision Check 12/30/2024 11:00 AM EDT [facility] Confirmed CV OV 03/02/2025 11:00 AM EDT [facility] ICD 03/12/2025 01:30 PM EDT [facility] Confirmed CV OV 03/12/2025 02:00 PM EDT SANTIAGO ROSAS [facility] Confirmed Follow Up Appointments Follow Up with DEVICE CLINIC Where:[address] [facility] [address] [address]- [phone] Follow Up with [facility] When:12/30/2024 11:00 AM EDT Where:[address] [address]- [phone] Follow Up with NIHKIL ROSAS MD When:03/02/2025 11:00 AM EDT Where:[address] [address]- [phone] Follow Up with NIKHIL ROSAS MD When:03/12/2025 02:00 PM EDT Where:[address] [address]- [phone] The Following Activity and Diet Have Been Ordered for You Discharge Activity - Ordered -- Other, No forceful pushing, pulling, or tugging for 4 weeks post-procedure., 12/15/24 16:01:00 EST Discharge Driving Restrictions - Ordered -- * Other, specify in special instructions, No driving for the remainder of the day post-procedure., 12/15/24 16:01:00 EST Discharge Diet - Ordered -- Follow the post-operative/post-procedure diet instructions provided by your physician's office.,12/15/24 16:01:00 EST The Following Equipment Has Been Ordered for You Discharge Home Equipment Discharge Wound Care - Ordered -- Aquacel dressing., 12/15/24 16:01:00 EST Someone Will Contact You Regarding These Home Health Referrals No home referrals have been ordered for you. No one will call you. Allergies Animal Dander unknown Mold unknown Pollen unknown amoxicillin nausea / vomitting lisinopril Headaches penicillin Syncope, Vomit, Nausea Medications Please ask your primary doctor or pharmacist before taking any other medication not listed, including over the counter drugs, herbal medications, vitamins and or supplements as they may interact withyour home medications. What How Much When Instructions Last Dose Unchanged chlorpheniramine by mouth Unchanged ergocalciferol (Vitamin D2 50 mcg (2000 intl units) oral capsule) 1 cap by mouth Once a day with food Unchanged herbal/ nutritional product (saw palmetto oral capsule) Unchanged hydroCHLOROthiazide (hydroCHLOROthiazide 12.5 mg oral capsule) 1 cap by mouth Every day Unchanged levothyroxine (levothyroxine 50 mcg (0.05 mg) oral tablet) take 1 tablet by mouth every morning Unchanged magnesium glycinate (magnesium glycinate 200 mg oral tablet) 0.5 tab(s) by mouth Unchanged metoprolol (Toprol-XL 25 mg oral tablet, extended release) 0.5 tab(s) by mouth Once a day Duration: 90 Days Unchanged mexiletine (mexiletine 200 mg oral capsule) 1 cap by mouth Every 8 hours Duration: 30 Days Unchanged multivitamin with minerals (Centrum Silver oral tablet) 1 tab(s) by mouth Once a day Unchanged potassium chloride (potassium chloride 99 mg oral tablet) 1 tab(s) by mouth Twice a week Please take this list to your next doctor s visit. Bring all medications you take, including over the counter medications, herbals and other supplements with you to your doctor s visit. Patients and families are reminded to discard old lists and to update any records with all medication providers or retail pharmacies. Education Materials ELECTROPHYSIOLOGY STUDY/ABLATION Discharge Instructions DIET INSTRUCTIONS Resume diet as prior to procedure ACTIVITIES Do not drive FOR 24 HOURS No heavy lifting GREATER THAN 10 POUNDS or pushing or straining FOR 4 DAYS BATHING/SHOWERING May tub bathe in 5 days Do not sit in hot tub, whirlpool, or swim for 5 days May shower today WOUND CARE You may go home with a dressing over your procedure site. Keep this dressing on for the next 24 hours and then remove it leaving the site open to air. Some degree of bruising and tenderness is normal around the procedure site. It will take a while for any bruising to completely resolve. Keep your site clean and dry. You need to report the following to your finishing range feeder: Any draining or oozing from the site Any swelling at the site Any increased pain or tenderness at the site Any numbness in your leg where the procedure was done Any sign of infection WATCH FOR SIGNS OF INFECTION: Elevated temperature above 100.5 Redness or swelling Increased pain Foul odor or drainage. If you have any questions, please call your doctor at the number listed on your follow up instructions. Follow all instructions given to you by your physician. Document Released: 10/08/2006 Document Revised: 09/24/2013 Document Reviewed: 10/09/2014 ExitCare Patient Information 2015 [employer]. This information is not intended to replace advicegiven to you by your health care provider. Make sure you discuss any questions you have with your health care provider. LOOP RECORDER INPLANT/EXPLANT Discharge Instructions WOUND CARE DO NOT place any ointments, creams, powders or lotions on the incision. Call your doctor s office immediately if you have: o Increased redness o Drainage from the incision o Increased pain, warmth or swelling on or around the site o Fever or chills that you cannot connect with a cold or flu If you have a dressing: o Keep the dressing clean and dry o You may remove it after 5 days If you do not have a dressing: o DO NOT shower or get the incision wet for 5 days. o DO NOT clean the incision with any soap, water, peroxide or alcohol. o Leave it dry and uncovered for 5 days, then you may shower using soap and water. o Wear loose fitting clothes over the incisional site to avoid irritation until it is healed. MEDICATIONS You may take Tylenol (acetaminophen) for incisional pain or discomfort. ACTIVITY RESTRICTIONS You may return to your normal activities after 24 hours Your [address] may be restricted, especially if you have passed out in the past. Discuss driving restrictions with your unemployment claims adjudicator. FOLLOW UP Follow up with the Pacemaker center for routine evaluation of your device. Your appointment to haveyour device checked and to see the doctor in 12-14 weeks has been scheduled and is listed above in the follow up section of these discharge instructions. Device Monitor Now that you have a permanent pacemaker, ICD, and/or loop recorder (all called a device ) it shouldbe checked regularly. This is done with a monitor that sends information from the device to your unemployment claims adjudicator (heart doctor) office. How will I get my monitor? The monitor will be shipped to your home within 6 weeks after you are discharged. But, if you are given the monitor before discharge, please take it home. You may get other equipment (such as a bloodpressure cuff and weight scale) shipped as well. There is no charge for this equipment. How does the monitor work? The monitor needs to be set up close to where you sleep. The monitor will automatically orange picking supervisor heart signals and send the information to your doctor. Or you may be asked to push a button to send theinformation. What are the next steps? You will have an appointment with the nurse at the Device Clinic in about 2 weeks and the nurse will check your device (you will not see your doctor). The nurses will talk to you about the monitor atthat time. When you get the monitor, there will be clear instructions with how to set it up. Please call the Device Clinic if you have questions. [facility]: [phone] Ask for the Device Clinic or christian-in extension [phone] when prompted. Device Clinic Location: [facility] (not the physician office building). Enter the [place] lobby and take the elevators to the 2nd floor. Take the rojas to the slight left labeled [facility] . If you are interested, you may find information about your device on the web, including videos thatwill help you understand and set up your monitor. The monitor you will get is based on the company that manufactured your device. Your device card will tell you the dress finisher. Using the search box: Lionseek: Lattitude Communicator quick start o Patient Help: Medtronic: MyCareLink quick start o Patient Help: [facility] ([place]ui): [email or web address] quick start o Patient Help: Other important information about your device: Always carry your device card with you. Your device may set off a metal detector. Be sure you have your device card with you if you plan togo through any area, such as an airport that may have a metal detector. Before having any test or procedure, make sure you tell the healthcare professional that you have an implanted device. Additional Information VACCINATE! IT SAVES LIVES! Members of the community who have not yet received the COVID-19 vaccine and would like to receive it can visit one of [facility] vaccine clinics. There are many vaccine clinic locations within the [facility]. For locations and available times, please visit [email or web address].[place].gov/. It is important to note that some COVID mobile vaccine clinics are held outdoors and may be canceled in rainy or stormy conditions. To learn more about pediatric vaccinations (ages 5-11), we invite you to visit the [facility] webpage. [email or web address].[email or web address]/[email or web address] [email or web address] learn more about the COVID-19 vaccine, we invite you to visit the CDC website for a list of frequently asked questions.https://www.cdc.gov/coronavirus/2019-ncov/vaccines/faq.html [facility] Patient Portal Access Instructions: Stay connected with your healthcare team and access your personal medical information anytime with the [facility] Patient Portal. Please follow the directions below to create your [employer] account: 1.Access the email account you provided upon registration to the hospital/physician office.2.Look for an invitation email from [facility].3.Open the email and access the invitation link: AcceptInvitation to [facility].4.Fill in the required marroquin to create your account. To access your account, visit [email or web address]. Click the blue button labeled Access Patient Portal and then log in with the username and password that you created in the steps above. You will be able to view your test results, lab results, a summary of your visits, upcoming appointments and more. There is also a convenient messaging option where you can send secure messages to your p No Chainsvider. In addition, you will have the ability to download any documents or summaries to your computer and/or send the information securely to a physician. Remember that your healthcare information is confidential, so carefully consider who you will allowto register on the [facility] Patient Portal for access to your information. You can also access the [facility] Patient Portal on the [facility] joão. Simply click on Patient Portal and then log into your account. If you would like to receive a full copy of your medical records, please contact the [facility] Medical Records Department by calling [phone], Sunday through Sunday between 8 a.m. and 4:30 p.m. HOW TO SAFELY DISPOSE OF PRESCRIPTION MEDICATIONS Please use one of the following methods to safely dispose of your unused medications. 1.Use a drug disposal kit: the drug disposal pouch allows you to safely discard your old and unuseddrugs. Ask your nurse to give you one when you are discharged.2.Visit a local take-back location: Many local pharmacies and police departments have programs that collect old and unwanted prescriptiondrugs. Call your local pharmacy or go to http://SportCentral.Domino/7T1Ja2w to find one close to you.3.Make use of household items: Use cat litter or old coffee grounds to dispose medications if other options arenot available. Mix your drugs with these household products, seal them in an airtight container andthrow it into the garbage. Call [facility]: [phone] to be sure your drugs can be disposed of in this way. Some medicines may require a different approach.4.Never flush your medications down the toilet. IF YOU HAVE BEEN PRESCRIBED AN OPIOID FOR PAIN If you have been prescribed an opioid (such as hydrocodone, oxycodone or morphine), it is critical to understand the possible side effects and risks of opioid pain medications. Even when taken as directed, opioids can have several side effects including: Tolerance, meaning you might need to take more of a medication for the same pain relief. Nausea, vomiting and/or constipation. Sleepiness, dizziness, dry mouth, confusion, depression or itching. Physical dependence, meaning you have withdrawal symptoms when a medication is stopped, can develop within a few days. KNOW YOUR RESPONSIBILITIES It is important to know exactly how much and how often to take the opioid pain medications you are prescribed. Never take opioids in higher amounts or more often than prescribed. Do not combine opioids with alcohol or other drugs that cause drowsiness, such as benzodiazepines, also known as benzos, including diazepam and alprazolam, muscle relaxants or sleep aids. Never sell or share prescription opioids. This is illegal. Store opioids in a secure place and out of reach of others (including children, family, friends and visitors). The last page of this document has been signed and retained as a CHART COPY. Signatures Patient Education Materials 3-- EP Study/Ablation (07/2018)(CUSTOM) 3- Loop recorder implant.explant 11/2019(CUSTOM) Medication Leaflets My discharge plan and instructions have been reviewed and explained to me and I,ANATOLIY TORRES understand my current condition and have read and understand these discharge instructions. I have received a written copy of the plan/instructions. If I have questions, I am aware that I should contact my d octor. 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 Syncope Unexplained. Conc car for cardiac etiology. Will proceed with EPS +/- PPM. Future Appointments Appointment Date:12/30/2024 11:00:00 AM Scheduled Provider: Location:[facility] Appointment Type:CV Incision Check Appointment Date:03/02/2025 11:00:00 AM Scheduled Provider:SANTIAGO ROSAS Location:[facility] Appointment Type:CV OV Appointment Date:03/12/2025 01:30:00 PM Scheduled Provider: Location:[facility] Appointment Type:CV Office Procedure ICD Appointment Date:03/12/2025 02:00:00 PM Scheduled Provider:SANTIAGO ROSAS Location:[facility] Appointment Type:CV OV [facility] 02-24-2025 History and physical note Date of Service December 15, 2024 Primary EP: Dr. Rosas Chief Complaint Unexplained syncope -> Presenting for EPS +/- PPM History of Present Illness Per [facility] OV note dated 09/01/24: 84-year-old male with history of frequent PVCs (14% burden--> 0.9%), RBBB, hypertension, isolated AF event, referred by Dr Ochoa for PVCs. He has been having episodes of dizziness and near falls. No chest pain or pressure. He cut back his atenolol dose in half. He had episodes of bradycardia but was not sure if his PVCs. Patient with symptomatic PVCs. Palps. Correlates it with weekness. Able to palpate these. Visit on 5/6/24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 Comments Goals (unrecognized section and content) Goals may be documented in a n alternate sectionGoals may be documented in an alternate sectionGoals may be documented in an alternate sectionGoals may be documented in an alternate sectionGoals may be documented in an alternate section No data available for this sectionGoals may be documented in an alternate section No data available for this section No data available for this section No data available for this sectionGoals may be documented in an alternate sectionGoals may be documented in an alternate sectionGoals may be documented in an alternate section Care Teams (unrecognized sec tion and content) Team Status: Active Member Role Status Dates Dr. Brayden Balderrama MD Family Provider Active Dr. Brayden Balderrama MD Primary Care Provider Active Team Status: Inactive Member Role Status Dates Dr. Brayden Balderrama MD Primary Care Provider, Referring Provider Active Nahum HENRY, PA Attending Provider Active Team Status: Inactive Member Role Status Dates Dr. Brayden Balderrama MD Primary Care Provider Active Dr. Nixon Restrepo MD Attending Provider Active Team Status: Inactive Member Role Status Dates Dr. Brayden Balderrama MD Primary Care Provider Active Dr. Samm Santos DO Emergency Provider Active Team Status: Inactive Member Role Status Dates Dr. Brayden Balderrama MD Primary Care Provider, Referring Provider Active Dr. Nixon Restrepo MD Attending Provider Active Team Status: Inactive Member Role Status Dates Dr. Brayden Balderrama MD Primary Care Provider, Referring Provider Active Samuel Mark BOOK COVERER, BOOK COVERER-C Attending Provider Active Team Status: Inactive Member Role Status Dates Dr. Brayden Balderrama MD Primary Care Provider Active Dr. Samm Santos DO Attending Provider, Emergency P rovider Active Team Status: Inactive Member Role Status Dates Dr. Brayden Balderrama MD Primary Care Provider, Attending Provider Active Team Status: Inactive Member Role Status Dates Dr. Brayden Balderrama MD Primary Care Provider Active Marie Mukherjee BOOK COVERER, BOOK COVERER-C Attending Provider, Referring P rovider Active Team Status: Inactive Member Role Status Dates Dr. Brayden Balderrama MD Primary Care Provi vito, Attending Provider, Referring Provider Active Team Status: Active Member Role Status Dates Dr. Brayden Balderrama MD Primary Care Provider Active Team Status: Inactive Member Role Status Dates Dr. Brayden Balderrama MD Primary Care Provider Active Start: September 08, 2024 End: September 08, 2024 Dr. Brayden Balderrama MD Attending Provider Active Start: September 08, 2024 End: September 08, 2024 Team Status: Inactive Member Role Status Dates Dr. Brayden Balderrama MD Primary Care Provider Active Start: October 06, 2024 End: October 06, 2024 Dr. Samm Santos DO Attending Provider Active Start: October 06, 2024 End: October 06, 2024 Dr. Samm Santos DO Emergency Provider Active Start: October 06, 2024 End: October 06, 2024 Team Status: Inactive Member Role Status Dates Dr. Brayden Balderrama MD Primary Care Provider Active Start: December 20, 2024 End: December 20, 2024 Dr. Anya Basilio DO Attending Provider Active Start: December 20, 2024 End: December 20, 2024 Dr. Anya Basilio , Emergency Provider Active Start: December 20, 2024 End: December 20, 2024 Team Status: Inactive Member Role Status Dates Dr. Brayden Balderrama MD Primary Care Provider Active Start: January 04, 2025 End: January 04, 2025 Dr. Kehinde Smith DO Referring Provider Active Start: January 04, 2025 End: January 04, 2025 Dr. Kehinde Smith DO Emergency Provider Active Start: January 04, 2025 End: January 04, 2025 Team Status: Inactive Member Role Status Dates Dr. Brayden Balderrama MD Primary Care Provider Active Start: January 12, 2025 End: January 12, 2025 Dr. Roger Ambrosio DO Emergency Provider Activ e Start: January 12, 2025 End: January 12, 2025 Team Status: Inactive Member Role Status Dates Dr. Brayden Balderrama MD Primary Care Provider Active Start: January 04, 2025 End: January 04, 2025 Dr. Kehinde Smith DO Attending Provider Active Start: January 04, 2025 End: January 04, 2025 Dr. Kehinde Smith DO Referring Provider Active Start: January 04, 2025 End: January 04, 2025 Dr. Kehinde Smith DO Emergency Provider Active Start: January 04, 2025 End: January 04, 2025 Team Status: Inactive Member Role Status Dates Dr. Brayden Balderrama MD Primary Care Provider Active Start: January 12, 2025 End: January 12, 2025 Dr. Roger Ambrosio DO Attending Provider Activ e Start: January 12, 2025 End: January 12, 2025 Dr. Roger Ambrosio DO Emergency Provider Activ e Start: January 12, 2025 End: January 12, 2025 Team Status: Inactive Member Role Status Dates Dr. Brayden Balderrama MD Primary Care Provider Active Start: March 09, 2025 End: March 09, 2025 Dr. Brayden Balderrama MD Attending Provider Active Start: March 09, 2025 End: March 09, 2025 Dr. Brayden Balderrama MD Referring Provider Active Start: March 09, 2025 End: March 09, 2025 (unrecognized sect ion and content) No Status Records FoundNo Status Records FoundNo Status Records FoundNo Status Records Found INFORMATION SOURCE (unrecogn ized section and content) DATE CREATED AUTHOR 08/13/2023 [facility] [employer] ([place]) DATE CREATED AUTHOR AUTHOR'S ORGANIZ ATION 12/07/2024 [facility] DATE CREATED AUTHOR AUTHOR'S ORGANIZ ATION 01/05/2025 [facility] DATE CREATED AUTHOR AUTHOR'S ORGANIZ ATION 03/18/2025 [facility] FOR RECORDS PERTAINING TO PATIENTS WHO ARE OR HAVE BEEN ENROLLED IN A CHEMICAL DEPENDENCY/SUBSTANCEABUSE PROGRAM, SOME INFORMATION MAY BE OMITTED. This clinical summary was aggregated from multiple sources. Caution should be exercised in using it in the provision of clinical care. This summary normalizes information from multiple sources, and as a consequence, information in this document may materially change the coding, format and clinical context of patient data. In addition, data may be omitted in some cases. CLINICAL DECISIONS SHOULD BE BASED ON THE PRIMARY CLINICAL RECORDS. [employer] provides no warranty or guarantee of the accuracy or completeness of information in this document.
[2025-05-30 11:00] LABS: Prothrombin Time (Protime)PT. 13.6 SECONDS (11.7-14.9)
[2025-05-30 11:01] LABS: Partial Thromboplast Time 26.4 Seconds (24.1-36.2)
--- NOTE | 2025-05-30 11:07 | ED.RN ---
EMS CALLED STROKE ALERT AT 1017, PT WAS HAVING RIGHT SIDED WEAKNESS. FOUND PT ON THE GROUND. PT WAS ON HIS WAY TO THE BATHROOM AT THE TIME. PT NEURO SX RESOLVED AT ARRIVAL TO ED WHICH WAS AT 1037. NIH SCORE IS 0.
[2025-05-30 11:09] LABS: Anion Gap 16 (5-15); BUN 31 mg/dL (4-19); BUN/Creat Ratio 13.3 RATIO (10-20); Calcium,Total 9.3 mg/dL (7.6-11.0); Carbon Dioxide 17.8 mmol/L (21.0-32.0); Chloride 103 mmol/L (98-108); Estimated Creatinine Clearance 24.09 ml/min (50-250); Glucose 107 mg/dL (70-99); Potassium 4.5 mmol/L (3.3-5.1); Troponin T High Sensitivity 28 ng/L (<=22)
--- OUTSIDE RECORDS SUMMARY | 2025-05-30 12:45 | XMS RPT_ITS | CCD ---
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 Brayden Neri Primary Care Provider Dr. Brayden Balderrama Referring Provider Roof WELDER/FITTER, WELDER/FITTER-C Samuel Bowers Attending Provider Dr. Nixon Restrepo Attending Provider Dr. Brayden Balderrama Primary Care Provider Dr. Brayden Balderrama Referring Provider ACRL Gonzalez Attending Provider Dr. Nixon Restrepo Attending Provider Dr. Brayden Balderrama Primary Care Provider Dr. Brayden Balderrama Referring Provider Dr. Nixon Restrepo Attending Provider Roof WELDER/FITTER, WELDER/FITTER-C Samuel Bowers Attending Provider TACOS PRINCE, DR BRAYDEN Vazquez Primary Care Physician DON PRINCE, DR ASHLEY Monsivais Attending Carline BALDERRAMA MD, DR BRAYDEN Vazquez Primary Care Dr. Brayden Neri Primary Care Provider Dr. Brayden Balderrama Referring Provider Dr. 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 Owen Primary Care Provider [phone] Tacos PRINCE, Dr. Owen Attending Provider [phone] Danielle [...] nausea vomiting, Nausea/vomiting , nausea / vomitting [facility] Work Phone: (8 sources) NKDA drug allergy 3 [facility] Work Phone: (14 sources) Lisinopril; Translations: [lisinopril] Drug Allergy 0 Headaches [facility] (10 sources) Mold Extract Drug Allergy 3 unknown [facility] (6 sources) Pollen Allergy to substance 3 [facility] (11 sources) animal dander; Translations: [animal dander] Allergy to substance 3 unknown [facility] (4 sources) Pollen Allergy to substance [facility] (2 sources) Penicillin; Translations: [penicillin] Drug Allergy Syncope, Vomit, Nausea [facility] (3 sources) chicken allergenic extract Drug Allergy 5 Abd cramps/diarrhea [facility] (3 sources) Milk Containing Products (Dairy) Propensity to adverse reactions 5 Abd cramps/diarrhea [facility] (1 source) chicken allergenic extract Drug Allergy 5 [facility] (1 source) Lisinopril Drug Allergy 5 [facility] (1 source) Mold Extract Drug Allergy 5 [facility] (1 source) Pollen Drug allergy (disorder) 5 [facility] (1 source) Milk Containing Products (Dairy) Drug allergy (disorder) 5 [facility] Medications Current Medications Medication Drug Class(es) [...] TABS One tablet by mouth daily ASPIRIN [id number] Sandra Lazcano RN atenolol 50 mg oral [...] TABS One tablet by mouth daily ATENOLOL [id number] Sandra Lazcano RN Centrum Silver oral tablet [...] One tablet by mouth daily CHLORPHENIRAMINE MALEATE [id number] Sandra Lazcano RN cholecalciferol 0.375 mg/ml oral [...] TABS One tablet by mouth daily HYDROCHLOROTHIAZIDE [id number] Sandra Lazcano RN levothyroxine sodium 0.05 mg [...] 11:00pm Start: 07-26-2018 take 1 capsule by [facility] once daily saw palmetto 1,000 mg capsule Active 1000 MG PO DAILY July 26, 2018 12:00am Saw [place] 1,000 mg capsule (3 sources) Start: 07-26-2018 take 1 capsule by mouth once daily Saw [place] 1,000 mg capsule Active 1000 mg PO [...] 10:00am Start: 02-15-2012 take 1 tablet [facility] daily GINSENG 100 MG CAPS One tablet by mouth daily GINSENG [id number] Sandra Lazcano RN lisinopril 10 mg oral [...] Start: 12-20-2024 take 2 tablets by mo [facility] once daily Metoprolol Succinate 25 mg tablet extended release 24 hr Active 12.5 mg PO DAILY December 20, 2024 1:00am Start: 01-08-2024 End: 01-02-2025 Toprol-XL 25 mg oral tablet, extended release Dose : 12.5 mg = 0.5 tab(s), Oral, qDay, # 45 tab(s), 3 Refill(s), Pharmacy: [facility] [place] [place] [facility] #[id number], 177.8, cm, 12/06/23 14:09:00 EST, Height, kg, [...] q8h, # 90 cap(s), 3 Refill(s), Pharmacy: [facility] [place] [place] [facility] #[id number], 177.8, cm, 12/06/23 14:09:00 EST, Height, kg, [...] One tablet by mouth daily MOEXIPRIL HCL [id number] Sandra Lazcano RN MULTIPLE VITAMIN (5 sources) Start: 02-15-2012 take 1 tablet by mouth once daily MULTIVITAMINS TABS One tablet by mouth daily MULTIPLE VITAMIN [id number] Sandra Lazcano RN olmesartan medoxomil 20 mg oral tablet (10 sources) Angiotensin 2 Receptor Katrina Start: 02-15-2012 End: 02-16-2012 take 1 tablet by mouth once daily BENICAR 20 MG TABS 1 tablet by mouth every day OLMESARTAN MEDOXOMIL [id number] Nixon Restrepo MD ondansetron 4 mg disintegrating [...] TABS One tablet by mouth daily POTASSIUM [id number] Nixon Restrepo MD SAW PALMETTO (SERENOA REPENS) (5 sources) Start: 02-15-2012 take 1 tablet by mouth once daily SAW PALMETTO 1000 MG CAPS One tablet by mouth daily SAW PALMETTO (SERENOA REPENS) [id number] Sandra Lazcano RN Problems Active Problems Problem [...] 03-09-2025 Anion gap [Moles/Vol] 11 mmol/L 5-[address] [facility] BUN/creatinine ratioOrdered By: Brayden Balderrama on 03-09-2025 Urea nitrogen/Creatinine [Mass ratio] 16.0 mg/mg - [facility] Bilirubin, totalOrdered By: Brayden Balderrama on 03-09-2025 Bilirubin [Mass/Vol] 0.58 mg/dL 0.00-1.30 [facility] Carbon dioxide, total [Moles /volume] in Central venous bloodOrdered By: Brayden Balderrama on 03-09-2025 CO2 [Moles/Vol] 24.2 mmol/L 21.0-32.0 [facility] Chloride assayOrdered By: Carl Balderrama on 03-09-2025 Chloride [Moles/Vol] 104 mmol/L 98-108 [facility] Comprehensive Metabolic Prof ilon 03-09-2025 Albumin [Mass/Vol] 3.9 g/dL Normal 3.4-4.8 [facility] Comment on above: Performed By: #### L 501.46409, L506.0400, L500.4050, L501.9520 #### [facility] [address] [place], [address] Albumin/Globulin [Mass ratio] 1.2 {ratio} Normal 0.9-2.4 [facility] Comment on above: Performed By: #### L 501.60809, L506.0400, L500.4050, L501.9520 #### [facility] [address] [place], [address] ALK PHOS 118 U/L Normal 40-129 [facility] Comment on above: Performed By: #### L 501.46395, L506.0400, L500.4050, L501.9520 #### [facility] [address] [place], [address] ALT [Catalytic activity/Vol] 37 U/L Normal <=46 [facility] Comment on above: Performed By: #### L 501.44567, L506.0400, L500.4050, L501.9520 #### [facility] [address] [place], [address] AST [Catalytic activity/Vol] 34 U/L Normal <=37 [facility] Comment on above: Performed By: #### L 501.13201, L506.0400, L500.4050, L501.9520 #### [facility] [address] [place], [address] Bilirubin [Mass/Vol] 0.58 mg/dL Normal 0.00-1.30 [facility] Comment on above: Performed By: #### L 501.98216, L506.0400, L500.4050, L501.9520 #### [facility] [address] [place], [address] BUN/CRE 16.0 RATIO Normal 10-20 [facility] Comment on above: Performed By: #### L 501.58708, L506.0400, L500.4050, L501.9520 #### [facility] [address] [place], [address] Calcium [Mass/Vol] 9.3 mg/dL Normal 7.6-11.0 [facility] Comment on above: Performed By: #### L 501.98539, L506.0400, L500.4050, L501.9520 #### [facility] [address] [place], [address] Chloride [Moles/Vol] 104 mmol/L Normal 98-108 [facility] Comment on above: Performed By: #### L 501.34656, L506.0400, L500.4050, L501.9520 #### [facility] [address] [place], [address] CO2 [Moles/Vol] 24.2 mmol/L Normal 21.0-32.0 [facility] Comment on above: Performed By: #### L 501.83364, L506.0400, L500.4050, L501.9520 #### [facility] [address] [place], [address] Creatinine [Mass/Vol] 1.71 mg/dL High 0.70-1.[address] [facility] Comment on above: Performed By: #### L 501.65506, L506.0400, L500.4050, L501.9520 #### [facility] [address] [place], [address] GAP 11 Normal 5-15 [facility] Comment on above: Performed By: #### L 501.41932, L506.0400, L500.4050, L501.9520 #### [facility] [address] [place], [address] GFR/1.73 sq M.predicted among non-blacks MDRD (S/P/Bld) [Vol rate/Area] 39 mL/min/{1.73_m2} Low >60 [facility] Comment on above: Result Comment: mL/m in/1.73m2 CKD-EPI Creatinine Equation (2020) Performed By: #### L 501.48820, L506.0400, L500.4050, L501.9520 #### [facility] [address] [place], [address] Globulin (S) [Mass/Vol] 3.2 g/dL Normal 2.2-4.2 [facility] Comment on above: Performed By: #### L 501.64719, L506.0400, L500.4050, L501.9520 #### [facility] [address] [place], [address] Glucose [Mass/Vol] 84 mg/dL Normal 70-99 [facility] Comment on above: Performed By: #### L 501.23696, L506.0400, L500.4050, L501.9520 #### [facility] [address] [place], [address] Potassium [Moles/Vol] 4.6 mmol/L Normal 3.3-5.[address] [facility] Comment on above: Performed By: #### L 501.98269, L506.0400, L500.4050, L501.9520 #### [facility] [address] [place], [address] Sodium [Moles/Vol] 139 mmol/L Normal 133-145 [facility] Comment on above: Performed By: #### L 501.02588, L506.0400, L500.4050, L501.9520 #### [facility] [address] [place], [address] T PROT 7.1 g/dL Normal 5.9-8.4 [facility] Comment on above: Performed By: #### L 501.24641, L506.0400, L500.4050, L501.9520 #### [facility] [address] [place], [address] Urea nitrogen [Mass/Vol] 27 mg/dL High 02-07 [facility] Comment on above: Performed By: #### L 501.82983, L506.0400, L500.4050, L501.9520 #### [facility] [address] [place], [address] Free T3on 03-09-2025 Free T3 [Mass/Vol] 2.5 pg/mL Normal 2.18-3.98 [facility] Comment on above: Performed By: #### L 501.97259, L506.0400, L500.4050, L501.9520 #### [facility] [address] [place], [address] Free [id number] By: Brayden riddle on 03-09-2025 Free T3 [Mass/Vol] 2.5 pg/mL 2.18-3.98 [facility] Glomerular filtration rate ( GFR) estimation/1.73 sq m using serum, plasma, or whole bOrdered By: Brayden Balderrama on 03-09-2025 GFR/1.73 sq M.predicted among non-blacks MDRD (S/P/Bld) [Vol rate/Area] 39 mL/min/{1.73_m2} Low >60 [facility] Comment on above: mL/min/1.73m2 CKD-EP I Creatinine Equation (2020) Laboratory - Chemistry and C hemistry - challengeOrdered By: Brayden Balderrama on 03-09-2025 AST [Catalytic activity/Vol] 34 U/L <38 [facility] Potassium measurement (mass/ volume)Ordered By: Brayden Balderrama on 03-09-2025 Potassium (Unsp spec) [Mass/Vol] 4.6 mmol/L 3.3-5.1 [facility] Serum creatinine measurement (mass/volume)Ordered By: Brayden Balderrama on 03-09-2025 Creatinine [Mass/Vol] 1.71 mg/dL High 0.70-1.[address] [facility] Serum globulin measurementOr dered By: Brayden Balderrama on 03-09-2025 Globulin (S) [Mass/Vol] 3.2 g/dL 2.2-4.2 [facility] Serum glucose measurement (m ass/volume)Ordered By: Brayden Balderrama on 03-09-2025 Glucose [Mass/Vol] 84 mg/dL 70-99 [facility] Serum or plasma alanine arroyo otransferase (ALT) measurementOrdered By: Brayden Balderrama on 03-09-2025 ALT [Catalytic activity/Vol] 37 U/L <47 [facility] Serum or plasma albumin tasha urement (mass/volume)Ordered By: Brayden Balderrama on 03-09-2025 Albumin [Mass/Vol] 3.9 g/dL 3.4-4.8 [facility] Serum or plasma albumin/glob ulin mass ratioOrdered By: Brayden Balderrama on 03-09-2025 Albumin/Globulin [Mass ratio] 1.2 {ratio} 0.9-2.4 [facility] Serum or plasma alkaline omid sphatase measurementOrdered By: Brayden Balderrama on 03-09-2025 ALP [Catalytic activity/Vol] 118 U/L 40-129 [facility] Serum or plasma calcium tasha urement (mass/volume)Ordered By: Brayden Balderrama on 03-09-2025 Calcium [Mass/Vol] 9.3 mg/dL 7.6-11.0 [facility] Serum or plasma urea nitroge n measurement (mass/volume)Ordered By: Brayden Balderrama on 03-09-2025 Urea nitrogen [Mass/Vol] 27 mg/dL High 4-19 [facility] Sodium levelOrdered By: Brayden Balderrama on 03-09-2025 Sodium [Moles/Vol] 139 mmol/L 133-145 [facility] T4 Free Directon 03-09-2025 T4 FREE DIRECT 1.30 ng/dL Normal 0.76-1.46 [facility] Comment on above: Performed By: #### L 501.9520, L506.0400, L501.5200, L501.24924, L500.2500 #### [facility] [address] [place], [address] T4 freeOrdered By: Brayden riddle on 03-09-2025 Free T4 [Mass/Vol] 1.30 ng/dL 0.76-1.46 [facility] TSH DL <= 0.005 mIU/L QnOrde red By: Brayden Balderrama on 03-09-2025 TSH Qn 3.250 uIU/mL 0.300-4.200 [facility] Thyroid Stim Hormone (TSH)on 03-09-2025 TSH 3.250 uIU/mL Normal 0.300-4.200 [facility] Comment on above: Performed By: #### L 501.91643, L506.0400, L500.4050, L501.9520 #### [facility] [address] [place], [address] Total proteinOrdered By: Elayne Balderrama on 03-09-2025 Protein [Mass/Vol] 7.1 g/dL 5.9-8.4 [facility] 12 Lead EKGon 01-12-[address] [facility] [address] [place] [address] 12 Lead EKG 01/12/25 1447 MR#: [id number] Acct: [id number] Name: MAGUI TORRES Rep #: [id number] : 1940 84 From: Nixon Restrepo MD [...] ECG Confirmed by DWAYNE PRINCE, NIXON ([id number]), features editor MYRTLE MCKEE ([id number]) on 01/14/2025 8:16:44 AM Referred By: KEREN Confirmed By: NIXON RESTREPO MD 01/14/2516 Date Nixon Restrepo MD CC: Dr. Roger Ambrosio, DO; Dr. Brayden Balderrama MD Signed Normal [facility] Absolute lymphocyte countOrd ered By: Roger Ambrosio on 01-12-2025 Lymphocytes Auto (Unsp spec) [#/Vol] 1.33 10*3/uL 0.83-4.51 [facility] Absolute neutrophil countOrd ered By: Roger Ambrosio on 01-12-2025 Neutrophils (Bld) [#/Vol] 8.0 10*3/uL High 2.0-7.7 [facility] Activated partial thrombopla stin time (aPTT) in platelet poor plasma by coagulation aOrdered By: Roger Ambrosio on 01-12-2025 aPTT Coag (PPP) [Time] 28.5 s 24.1-36.2 [facility] Anion gap in Serum or Plasma Ordered By: Roger Ambrosio on 01-12-2025 Anion gap [Moles/Vol] 12 mmol/L 5-[address] [facility] Automated lymphocyte count a s percentage of total leukocytesOrdered By: Roger Ambrosio on 01-12-2025 Lymphocytes/100 WBC Auto (Unsp spec) 12.2 % Low 19-41 [facility] BUN/creatinine ratioOrdered By: Roger Ambrosio on 01-12-2025 Urea nitrogen/Creatinine [Mass ratio] 16.0 mg/mg 10- [facility] Basic Metabolic Profile (BMP )on 01-12-2025 BUN/CRE 16.0 RATIO Normal - [facility] Comment on above: Performed By: #### L 501.9520, L506.0400, L501.5200, L501.72692, L500.2500 #### [facility] [address] [place], [address] Calcium [Mass/Vol] 9.2 mg/dL Normal 7.6-11.0 [facility] Comment on above: Performed By: #### L 501.9520, L506.0400, L501.5200, L501.31726, L500.2500 #### [facility] [address] [place], [address] Chloride [Moles/Vol] 102 mmol/L Normal 98-108 [facility] Comment on above: Performed By: #### L 501.9520, L506.0400, L501.5200, L501.26797, L500.2500 #### [facility] [address] [place], [address] CO2 [Moles/Vol] 22.2 mmol/L Normal 21.0-32.0 [facility] Comment on above: Performed By: #### L 501.9520, L506.0400, L501.5200, L501.73477, L500.2500 #### [facility] [address] [place], [address] Creatinine [Mass/Vol] 1.74 mg/dL High 0.70-1.[address] [facility] Comment on above: Performed By: #### L 501.9520, L506.0400, L501.5200, L501.19762, L500.2500 #### [facility] [address] [place], [address] ECRCL 33.75 ml/min Low 50-250 [facility] Comment on above: Performed By: #### L 501.9520, L506.0400, L501.5200, L501.12058, L500.2500 #### [facility] [address] [place], [address] GAP 12 Normal 5-15 [facility] Comment on above: Performed By: #### L 501.9520, L506.0400, L501.5200, L501.10721, L500.2500 #### [facility] [address] [place], [address] GFR/1.73 sq M.predicted among non-blacks MDRD (S/P/Bld) [Vol rate/Area] 39 mL/min/{1.73_m2} Low >60 [facility] Comment on above: Result Comment: mL/m in/1.73m2 CKD-EPI Creatinine Equation (2020) Performed By: #### L 501.9520, L506.0400, L501.5200, L501.82856, L500.2500 #### [facility] [address] [place], [address] Glucose [Mass/Vol] 99 mg/dL Normal 70-99 [facility] Comment on above: Performed By: #### L 501.9520, L506.0400, L501.5200, L501.53191, L500.2500 #### [facility] [address] [place], [address] Potassium [Moles/Vol] 4.3 mmol/L Normal 3.3-5.[address] [facility] Comment on above: Performed By: #### L 501.9520, L506.0400, L501.5200, L501.75044, L500.2500 #### [facility] [address] [place], [address] Sodium [Moles/Vol] 137 mmol/L Normal 133-145 [facility] Comment on above: Performed By: #### L 501.9520, L506.0400, L501.5200, L501.73117, L500.2500 #### [facility] [address] [place], [address] Urea nitrogen [Mass/Vol] 28 mg/dL High 4-19 [facility] Comment on above: Performed By: #### L 501.9520, L506.0400, L501.5200, L501.69576, L500.2500 #### [facility] [address] [place], [address] Basophil percentageOrdered B y: Roger KlaltonGonzalez on 01-12-2025 Basophils/100 WBC (Bld) 0.8 % 0-1 [facility] Bilirubin Test strip Ql (U)O rdered By: Roger ShantaltonGonzalez on 01-12-2025 Bilirubin Ql (U) Negative Negative [facility] CBC W/Diff, Automatedon 12-21 Absolute Lymph 1.33 X10 3/uL Normal 0.83-4.51 [facility] Comment on above: Performed By: #### L 501.9520, L506.0400, L501.5200, L501.61859, L500.2500 #### [facility] [address] [place], [address] Absolute Neut 8.0 X10 3/uL High 2.0-7.7 [facility] Comment on above: Performed By: #### L 501.9520, L506.0400, L501.5200, L501.33477, L500.2500 #### [facility] [address] [place], [address] Basophils/100 WBC (Bld) 0.8 % Normal 0-1 [facility] Comment on above: Performed By: #### L 501.9520, L506.0400, L501.5200, L501.69075, L500.2500 #### [facility] [address] [place], [address] Eosinophils/100 WBC (Bld) 2.8 % Normal 0-5 [facility] Comment on above: Performed By: #### L 501.9520, L506.0400, L501.5200, L501.57302, L500.2500 #### [facility] [address] [place], [address] Erythrocyte distribution width (RBC) [Ratio] 13.5 % Normal 11.6-14.6 [facility] Comment on above: Performed By: #### L 501.9520, L506.0400, L501.5200, L501.81067, L500.2500 #### [facility] [address] [place], [address] Hematocrit (Bld) [Volume fraction] 40.9 % Normal 40-54 [facility] Comment on above: Performed By: #### L 501.9520, L506.0400, L501.5200, L501.73962, L500.2500 #### [facility] [address] [place], [address] Hemoglobin (Bld) [Mass/Vol] 14.1 g/dL Normal 13.0-16.5 [facility] Comment on above: Performed By: #### L 501.9520, L506.0400, L501.5200, L501.21333, L500.2500 #### [facility] [address] [place], [address] IG% 0.800 Normal 0.0-0.9 [facility] Comment on above: Result Comment: IG% - Immature Granulocytes (promyelocytes, myelocytes and metamyelocytes) > 1% indicates that a LEFT SHIFT is Present. Performed By: #### L 501.9520, L506.0400, L501.5200, L501.30061, L500.2500 #### [facility] [address] [place], [address] Lymphocytes/100 WBC (Bld) 12.2 % Low 19-41 [facility] Comment on above: Performed By: #### L 501.9520, L506.0400, L501.5200, L501.53487, L500.2500 #### [facility] [address] [place], [address] MCH (RBC) [Entitic mass] 30.7 pg Normal 27.0-32.0 [facility] Comment on above: Performed By: #### L 501.9520, L506.0400, L501.5200, L501.96749, L500.2500 #### [facility] [address] [place], [address] MCHC (RBC) [Mass/Vol] 34.5 g/dL Normal 32-[address] [facility] Comment on above: Performed By: #### L 501.9520, L506.0400, L501.5200, L501.32584, L500.2500 #### [facility] [address] [place], [address] MCV (RBC) [Entitic vol] 88.9 fL Normal 80-94 [facility] Comment on above: Performed By: #### L 501.9520, L506.0400, L501.5200, L501.25527, L500.2500 #### [facility] [address] [place], [address] Monocytes/100 WBC (Bld) 10.3 % High 0-10 [facility] Comment on above: Performed By: #### L 501.9520, L506.0400, L501.5200, L501.25647, L500.2500 #### [facility] [address] [place], [address] Neutrophils/100 WBC (Bld) 73.1 % High 47-70 [facility] Comment on above: Performed By: #### L 501.9520, L506.0400, L501.5200, L501.49370, L500.2500 #### [facility] [address] [place], [address] Nucleated RBC (Bld) [#/Vol] 0 10*3/uL Normal 0-5 [facility] Comment on above: Performed By: #### L 501.9520, L506.0400, L501.5200, L501.61707, L500.2500 #### [facility] [address] [place], [address] Platelet mean volume (Bld) [Entitic vol] 9.8 fL Normal 6.2-12.0 [facility] Comment on above: Performed By: #### L 501.9520, L506.0400, L501.5200, L501.26337, L500.2500 #### [facility] [address] [place], [address] Platelets (Bld) [#/Vol] 239 10*3/uL Normal 150-450 [facility] Comment on above: Performed By: #### L 501.9520, L506.0400, L501.5200, L501.05412, L500.2500 #### [facility] [address] [place], [address] RBC (Bld) [#/Vol] 4.60 10*6/uL Normal 4.6-6.2 [facility] Comment on above: Performed By: #### L 501.9520, L506.0400, L501.5200, L501.99088, L500.2500 #### [facility] [address] [place], [address] RDW SD 44.0 fl High 35.1-43.9 [facility] Comment on above: Performed By: #### L 501.9520, L506.0400, L501.5200, L501.71804, L500.2500 #### [facility] [address] [place], [address] WBC (Bld) [#/Vol] 10.9 10*3/uL Normal 4.4-11.0 [facility] Comment on above: Performed By: #### L 501.9520, L506.0400, L501.5200, L501.37539, L500.2500 #### [facility] [address] [place], [address] CTA Chest W/WO Contraston CTA Chest W/WO Contrast [facility] Imaging Services [address] [facility] [place] [address] CTA Chest W/WO Contrast MR#: [id number] Acct: [id number] Name: MAGUI TORRES Rep #: [id number] : 1940 M 84 From: Dustin Rees MD PCP: Dr. Brayden Balderrama MD Status: [facility] Study: CTA Chest W/WO Contrast Date of Exam: 01/12/25 Exam# [id number] Ordering Dr: Roger Ambrosio DO EXAM: CT [...] Contrast IMPRESSION: No pulmonary embolism. Reading [facility] CC: Dr. Roger Ambrosio DO; Dr. Brayden Balderrama MD Serging Machine Operator: Signed Normal [facility] Carbon dioxide, total [Moles /volume] in Central venous bloodOrdered By: Roger Ambrosio on 01-12-2025 CO2 [Moles/Vol] 22.2 mmol/L 21.0-32.0 [facility] Chest 1 View (Portable)on Chest 1 View (Portable) [facility] Imaging Services [address] [place] [address] Chest 1 View (Portable) MR#: [id number] Acct: [id number] Name: MAGUI TORRES Rep #: [id number] : 1940 M 84 From: Dustin Rees MD PCP: Dr. Brayden Balderrama MD Status: REG ER Study: Chest 1 View (Portable) Date of Exam: 01/12/25 Exam# [id number] Ordering Dr: Roger Ambrosio DO EXAM: XR [...] (Portable) IMPRESSION: Pulmonary venous congestion. Reading Location: [facility] CC: Dr. Roger Ambrosio DO; Dr. Brayden Balderrama MD Serging Machine Operator: Signed Normal [facility] Chloride assayOrdered By: Real Ambrosio on 01-12-2025 Chloride [Moles/Vol] 102 mmol/L 98-108 [facility] D-Dimer Quantitative (DVT/PE )on 01-12-2025 D-DIMER QUANT 1.66 FEU/ug/m Invalid Interpretation Code 0.27-0.49 [facility] Comment on above: Result Comment: D-Di nae ELEVATED (>0.49): Additional studies and clinical assessments are indicated to conclude diagnosis of: Deep Vein Thrombosis (DVT) or Pulmonary Embolism (PE) CRITICAL VALUE CALLED TO [place] FOREMAN 01/12/25 Debbi Bond. RESULTS READ BACK BY . Performed By: #### L 501.9520, L506.0400, L501.5200, L501.11760, L500.2500 #### [facility] Laboratory [address] [place], [address] D-dimer measurement for deep venous thrombosisOrdered By: Roger Ambrosio on 01-12-2025 D-Dimer Quantitative (PE/DVT) 1.66 FEU/ug/m High 0.27-0.49 [facility] Comment on above: D-Dimer ELEVATED (>0 .49): Additional studies and clinicalassessments are indicated to conclude diagnosis of:Deep Vein Thrombosis (DVT) or Pulmonary Embolism (PE)CRITICAL VALUE CALLED TO [place] FOREMAN01/12/25 Debbi Bond.RESULTS READ BACK BY . Emergency Department Summary on 01-12-2025 Emergency Department Summary [facility] Medical Records Department [address] [place] [address] Emergency Department Summary 01/12/25 MR#: [id number] Acct: [id number] Name: MAGUI TORRES Rep #: [id number] : 1940 84 From: Roger Ambrosio DO [...] be discharged to follow-up with cardiology at [facility] as arranged by Dr. Pastrana. Disposition is [...] 22/2025 he received a [employer] pacemaker at [facility]. This was due to syncopal episode and [...] intact Psych: Cooperative, appropriate mood and affect [facility] Medical History (Updated 01/12/25 @ 00:02 by [...] 12/20/24 11:25 (more content not included)... Normal [facility] Eosinophil percentageOrdered By: Roger Ambrosio on 01-12-2025 Eosinophils/100 WBC (Bld) 2.8 % 0-5 [facility] Epithelial cells.squamous LM Ql (Urine sed)Ordered By: Roger Ambrosio on 01-12-2025 Epithelial cells.squamous LM.HPF (Urine sed) [#/Area] 0 /[HPF] 0-5 [facility] Erythrocyte distribution wid th ratioOrdered By: Roger Ambrosio on 01-12-2025 Erythrocyte distribution width (RBC) [Ratio] 13.5 % 11.6-14.6 [facility] Erythrocyte distribution wid th standard deviationOrdered By: Roger Roth on 01-12-2025 Erythrocyte distribution width (RBC) [Entitic vol] 44.0 fL High 35.1-43.9 [facility] Erythrocyte distribution width (RBC) [Ratio] 44.0 fl High 35.1-43.9 [facility] Estimation of creatinine humberto aranceOrdered By: Roger Ambrosio on 01-12-2025 Estimated Creatinine Clearance Calc 33.75 ml/min Low 50-250 [facility] GFR/1.73 sq M.predicted anjel g non-blacks MDRD (S/P/Bld) [Vol rate/Area]Ordered By: Roger Ambrosio on 01-12-2025 Estimated GFR (MDRD) Non-Af Amer 39 Low >60 [facility] Comment on above: mL/min/1.73m2 CKD-EP I Creatinine Equation (2020) Glomerular filtration rate ( GFR) estimation/1.73 sq m using serum, plasma, or whole bOrdered By: Roger Ambrosio on 01-12-2025 GFR/1.73 sq M.predicted among non-blacks MDRD (S/P/Bld) [Vol rate/Area] 39 mL/min/{1.73_m2} Low >60 [facility] Comment on above: mL/min/1.73m2 CKD-EP I Creatinine Equation (2020) Glucose Ql (U)Ordered By: Real Ambrosio on 01-12-2025 Urine Glucose (UA) Normal mg/dl Normal [facility] Hematocrit Auto (Bld) [Volum e fraction]Ordered By: Roger Ambrosio on 01-12-2025 Hematocrit (Bld) [Volume fraction] 40.9 % 40-54 [facility] Hemoglobin measurementOrdere d By: Roger Ambrosio on 01-12-2025 Hemoglobin (Bld) [Mass/Vol] 14.1 g/dL 13.0-16.5 [facility] Immature granulocytes/100 WB C Auto (Bld)Ordered By: Roger Ambrosio on 01-12-2025 Immature granulocytes/100 WBC (Bld) 0.800 % 0.0-0.9 [facility] Comment on above: IG% - Immature Granu locytes (promyelocytes, myelocytes and metamyelocytes) > 1% indicates that a LEFT SHIFT is Present. International normalized rat io (INR) calculationOrdered By: Roger Ambrosio on 01-12-2025 INR Coag (Bld) [Relative time] 1.2 {INR} [facility] Ketones Test strip Ql (U)Ord ered By: Roger Ambrosio on 01-12-2025 Ketones Ql (U) Negative Negative [facility] L499.0042on 01-12-2025 Trop T High Sen 21 ng/L Normal <=22 [facility] Comment on above: Performed By: #### L 501.9520, L506.0400, L501.5200, L501.36478, L500.2500 #### [facility] Laboratory [address] [place], [address] L501.4021on 01-12-2025 Trop T High Sen 23 ng/L High <=22 [facility] Comment on above: Performed By: #### L 501.9520, L506.0400, L501.5200, L501.72953, L500.2500 #### [facility] [address] [place], [address] L503.7505on 01-12-2025 Natriuretic peptide B (Bld) [Mass/Vol] 157 pg/mL Normal <=1800 [facility] Comment on above: Result Comment: Hear t Failure Unlikely: < 300 pg/mL Heart Failure Likely < 50 Years: > 450 pg/mL 50-75 Years: > 900 pg/mL >75 Years: > 1800 pg/mL Performed By: #### L 501.9520, L506.0400, L501.5200, L501.51916, L500.2500 #### [facility] [place], [address] Laboratory - Chemistry and C hemistry - challengeOrdered By: Roger Ambrosio on 01-12-2025 Natriuretic peptide B (Bld) [Mass/Vol] 157 pg/mL <1800 [facility] Comment on above: Heart Failure Unlike ly: < 300 pg/mLHeart Failure Likely< 50 Years: > 450 pg/mL50-75 Years: > 900 pg/mL>75 Years: > 1800 pg/mL Lymphocytes Auto (Unsp spec) [#/Vol]Ordered By: Roger Ambrosio on 01-12-2025 Lymphocytes (Bld) [#/Vol] 1.33 10*3/uL 0.83-4.51 [facility] Lymphocytes/100 WBC Auto (Un sp spec)Ordered By: Roger Ambrosio on 01-12-2025 Lymphocytes/100 WBC (Bld) 12.2 % Low 19-41 [facility] MCV (mean corpuscular volume ) determinationOrdered By: Roger Ambrosio on 01-12-2025 MCV (RBC) [Entitic vol] 88.9 fL 80-94 [facility] Mean corpuscular hemoglobin (MCH) determinationOrdered By: Roger Ambrosio on 01-12-2025 MCH (RBC) [Entitic mass] 30.7 pg 27.0-32.0 [facility] Mean corpuscular hemoglobin concentration (MCHC) determinationOrdered By: Roger Daily on 01-12-2025 MCHC (RBC) [Mass/Vol] 34.5 g/dL 32-[address] [facility] Mean platelet volume determi nationOrdered By: Roger Ambrosio on 01-12-2025 Platelet mean volume (Bld) [Entitic vol] 9.8 fL 6.2-12.0 [facility] Microscopic analysis of urin e for red blood cells (RBC)Ordered By: Roger Ambrosio on 01-12-2025 Microscopic analysis of urine for red blood cells (RBC) 0 SEEN /hpf 0-5 [facility] Urine RBC 0 SEEN /hpf 0-5 [facility] Monocyte percentageOrdered B y: Roger Ambrosio on 01-12-2025 Monocytes/100 WBC (Bld) 10.3 % High 0-10 [facility] Mucus LM Ql (Urine sed)Order ed By: Roger Ambrosio on 01-12-2025 Mucus Ql (Urine sed) 0 SEEN /hpf [facility] Neutrophil percentageOrdered By: Roger Ambrosio on 01-12-2025 Neutrophils/100 WBC (Bld) 73.1 % High 47-70 [facility] Nitrite Test strip Ql (U)Ord ered By: Roger Ambrosio on 01-12-2025 Nitrite Ql (U) Negative Negative [facility] No Panel InformationOrdered By: Roger Ambrosio on 01-12-2025 Troponin T High Sensitivity 23 ng/L High <22 [facility] Comment on above: Delta: 28 on 5-1300 Nucleated red blood cell per centageOrdered By: Roger Ambrosio on 01-12-2025 Nucleated RBC/100 WBC (Bld) [Ratio] 0 % 0-5 [facility] Partial Thromboplast Timeon 01-12-2025 aPTT Coag (Bld) [Time] 28.5 s Normal 24.1-36.2 [facility] Comment on above: Performed By: #### L 501.9520, L506.0400, L501.5200, L501.49551, L500.2500 #### [facility] [address] [place], [place] [address], [address] Platelet countOrdered By: Real Ambrosio on 01-12-2025 Platelets (Bld) [#/Vol] 239 10*3/uL 150-450 [facility] Potassium (Unsp spec) [Mass/ Vol]Ordered By: Roger Ambrosio on 01-12-2025 Potassium [Moles/Vol] 4.3 mmol/L 3.3-5.[address] [facility] Potassium measurement (mass/ volume)Ordered By: Roger Ambrosio on 01-12-2025 Potassium (Unsp spec) [Mass/Vol] 4.3 mmol/L 3.3-5.1 [facility] Protein Test strip Ql (U)Ord ered By: Roger Ambrosio on 01-12-2025 Protein Ql (U) 30 mg/dl High Negative [facility] Prothrombin Time w/INRon INR Coag (PPP) [Relative time] 1.2 {INR} Normal [facility] Comment on above: Performed By: #### L 501.9520, L506.0400, L501.5200, L501.76305, L500.2500 #### [facility] [address] [facility] [place], [place], [id number] Prothrombin timeOrdered By: Roger Ambrosio on 01-12-2025 PT Coag (PPP) [Time] 15.2 s High 11.7-14.9 [facility] Comment on above: Performed By: #### L 501.9520, L506.0400, L501.5200, L501.17428, L500.2500 #### [facility] [address] [facility] [place], [place], [address] RBC Auto (Bld) [#/Vol]Ordere d By: Roger Ambrosio on 01-12-2025 RBC (Bld) [#/Vol] 4.60 10*6/uL 4.6-6.2 [facility] Serum creatinine measurement (mass/volume)Ordered By: Roger Ambrosio on 01-12-2025 Creatinine [Mass/Vol] 1.74 mg/dL High 0.70-1.[address] [facility] Serum glucose measurement (m ass/volume)Ordered By: Roger Ambrosio on 01-12-2025 Glucose [Mass/Vol] 99 mg/dL 70-99 [facility] Serum or plasma calcium tasha urement (mass/volume)Ordered By: Roger Roth on 01-12-2025 Calcium [Mass/Vol] 9.2 mg/dL 7.6-11.0 [facility] Serum or plasma urea nitroge n measurement (mass/volume)Ordered By: Roger Ambrosio on 01-12-2025 Urea nitrogen [Mass/Vol] 28 mg/dL High 4-19 [facility] Sodium levelOrdered By: rEic Ambrosio on 01-12-2025 Sodium [Moles/Vol] 137 mmol/L 133-145 [facility] Squamous epithelial cells de tection in urine sediment by light microscopyOrdered By: Roger Ambrosio on 01-12-2025 Epithelial cells.squamous LM Ql (Urine sed) 0 SEEN /hpf 0-5 [facility] Troponin T.cardiac High sens itivity method [Mass/Vol]Ordered By: Roger Roth on 01-12-2025 Troponin T High Sensitivity 2 Hour 21 ng/L <22 [facility] Troponin T.cardiac [Mass/vol ume] in Serum or Plasma by High sensitivity methodOrdered By: Roger Ambrosio on 01-12-2025 Troponin T.cardiac High sensitivity method [Mass/Vol] 21 ng/L <22 [facility] Urinalysis, Completeon 01-12 RBC 0 SEEN Normal 0-5 [facility] Comment on above: Order Comment: CLEAN CATCH Performed By: #### L 501.9520, L506.0400, L501.5200, L501.70953, L500.2500 #### [facility] [address] [place], [address] WBC 0-5 SEEN Normal 0-5 [facility] Comment on above: Order Comment: CLEAN CATCH Performed By: #### L 501.9520, L506.0400, L501.5200, L501.79795, L500.2500 #### [facility] [address] [place], [address] BACTERIA 0 SEEN Normal None Seen [facility] Comment on above: Order Comment: CLEAN CATCH Performed By: #### L 501.9520, L506.0400, L501.5200, L501.86935, L500.2500 #### [facility] [address] [place], [address] EPI,SQUAMOUS 0 SEEN Normal 0-5 [facility] Comment on above: Order Comment: CLEAN CATCH Performed By: #### L 501.9520, L506.0400, L501.5200, L501.77706, L500.2500 #### [facility] [address] [place], [address] Mucus Ql (Urine sed) 0 SEEN Normal [facility] Comment on above: Order Comment: CLEAN CATCH Performed By: #### L 501.9520, L506.0400, L501.5200, L501.71154, L500.2500 #### [facility] [address] [place], [address] Urine blood detectionOrdered By: Roger Ambrosio on 01-12-2025 Urine Occult Blood Negative Negative [facility] Urine clarityOrdered By: Joel Ambrosio on 01-12-2025 Clarity (U) Clear Clear [facility] Urine color determinationOrd ered By: Roger Ambrosio on 01-12-2025 Color (U) Yellow Yellow [facility] Urine glucose detectionOrder ed By: Roger Ambrosio on 01-12-2025 Glucose Ql (U) Normal mg/dl Normal [facility] Urine leukocyte esterase det ection by dipstickOrdered By: Roger Ambrosio on 01-12-2025 Leukocyte esterase Test strip Ql (U) Negative Negative [facility] Urine pHOrdered By: Roger Vargas on 01-12-2025 pH (U) 7.0 [pH] 5.0 - 8.0 [facility] Urine sediment bacteria coun t by microscopy (number/high power field)Ordered By: Roger Ambrosio on 01-12-2025 Bacteria LM.HPF (Urine sed) [#/Area] 0 /[HPF] None Seen [facility] Urine specific gravity measu rementOrdered By: Roger Ambrosio on 01-12-2025 Specific gravity (U) [Rel density] 1.005 1.002-1.030 [facility] Urine urobilinogen measureme ntOrdered By: Roger Ambrosio on 01-12-2025 Urobilinogen Ql (U) 4 mg/dl High Normal [facility] Urobilinogen Ql (U)Ordered B y: Roger Ambrosio on 01-12-2025 Urobilinogen (U) [Mass/Vol] 4 mg/dL High Normal [facility] White blood cell (WBC) count Ordered By: Roger Ambrosio on 01-12-2025 WBC (Bld) [#/Vol] 10.9 10*3/uL 4.4-11.0 [facility] White blood cell countOrdere d By: Roger Ambrosio on 01-12-2025 Urine WBC 0-5 SEEN /hpf 0-5 [facility] White blood cell count 0-5 SEEN /hpf 0-5 [facility] aPTT Coag (PPP) [Time]Ordere d By: Roger Ambrosio on 01-12-2025 aPTT Coag (Bld) [Time] 28.5 s 24.1-36.2 [facility] 12 Lead EKGon 01-04-[address] [facility] Cardiovascular Services [address] [place] [address] 12 Lead EKG 01/04/25 1357 MR#: [id number] Acct: [id number] Name: MAGUI TORRES Rep #: [id number] : 1940 84 From: Nixon Restrepo MD [...] Abnormal ECG Confirmed by DWAYNE PRINCE, NIXON ([id number]), features editor JOURDAN CHEN ([id number]) on 01/05/2025 8:23:33 AM Referred By: Kehinde Smith Confirmed By: NIXON RESTREPO MD 01/05/25822 Date Nixon Restrepo MD CC: DENIZ Mcguire; Dr. Kehinde Smith, DO; Dr. Brayden Balderrama MD Signed Normal [facility] Absolute lymphocyte countOrd ered By: Brayden Mcguire on 01-04-2025 Lymphocytes Auto (Unsp spec) [#/Vol] 4.77 10*3/uL High 0.83-4.51 [facility] Absolute neutrophil countOrd ered By: Brayden Mcguire on 01-04-2025 Neutrophils (Bld) [#/Vol] 4.4 10*3/uL 2.0-7.7 [facility] Anion gap in Serum or Plasma Ordered By: Brayden Mcguire on 01-04-2025 Anion gap [Moles/Vol] 16 mmol/L High 5-[address] [facility] Automated blood erythrocyte countOrdered By: Brayden Mcguire on 01-04-2025 RBC (Bld) [#/Vol] 4.82 10*6/uL Normal 4.6-6.2 [facility] Comment on above: Performed By: #### L 501.9520, L506.0400, L501.5200, L501.01552, L500.2500 #### [facility] Laboratory [facility] [place], [address] Automated blood hematocrit ( percentage)Ordered By: Brayden Mcguire on 01-04-2025 Hematocrit (Bld) [Volume fraction] 41.7 % Normal 40-54 [facility] Comment on above: Performed By: #### L 501.9520, L506.0400, L501.5200, L501.61681, L500.2500 #### [facility] [address] [place], [address] Automated lymphocyte count a s percentage of total leukocytesOrdered By: Brayden Mcguire on 01-04-2025 Lymphocytes/100 WBC (Bld) 43.2 % High -41 [facility] Comment on above: Performed By: #### L 501.9520, L506.0400, L501.5200, L501.46062, L500.2500 #### [facility] [address] [place], [address] Lymphocytes/100 WBC Auto (Unsp spec) 43.2 % High - [facility] BUN/creatinine ratioOrdered By: Brayden Mcguire on 01-04-2025 Urea nitrogen/Creatinine [Mass ratio] 14.2 mg/mg 10- [facility] Basic Metabolic Profile (BMP )on 01-04-2025 BUN/CRE 14.2 RATIO Normal - [facility] Comment on above: Performed By: #### L 501.9520, L506.0400, L501.5200, L501.10144, L500.2500 #### [facility] [address] [place], [address] ECRCL 29.55 ml/min Low 50-250 [facility] Comment on above: Performed By: #### L 501.9520, L506.0400, L501.5200, L501.35798, L500.2500 #### [facility] [address] [place], [address] GAP 16 High 5-15 [facility] Comment on above: Performed By: #### L 501.9520, L506.0400, L501.5200, L501.06710, L500.2500 #### [facility] [address] [place], [address] Basophil percentageOrdered B y: Brayden Mcguire on 01-04-2025 Basophils/100 WBC (Bld) 1.0 % Normal 0-1 [facility] Comment on above: Performed By: #### L 501.9520, L506.0400, L501.5200, L501.81418, L500.2500 #### [facility] [address] [place], [address] CBC W/Diff, Automatedon 12-20 Absolute Lymph 4.77 X10 3/uL High 0.83-4.51 [facility] Comment on above: Performed By: #### L 501.9520, L506.0400, L501.5200, L501.27996, L500.2500 #### [facility] [address] [place], [address] Absolute Neut 4.4 X10 3/uL Normal 2.0-7.7 [facility] Comment on above: Performed By: #### L 501.9520, L506.0400, L501.5200, L501.36020, L500.2500 #### [facility] [address] [place], [address] IG% 0.400 Normal 0.0-0.9 [facility] Comment on above: Result Comment: IG% - Immature Granulocytes (promyelocytes, myelocytes and metamyelocytes) > 1% indicates that a LEFT SHIFT is Present. Performed By: #### L 501.9520, L506.0400, L501.5200, L501.48624, L500.2500 #### [facility] [address] [place], [address] Nucleated RBC (Bld) [#/Vol] 0 10*3/uL Normal 0-5 [facility] Comment on above: Performed By: #### L 501.9520, L506.0400, L501.5200, L501.66636, L500.2500 #### [facility] [address] [place], [address] RDW SD 42.3 fl Normal 35.1-43.9 [facility] Comment on above: Performed By: #### L 501.9520, L506.0400, L501.5200, L501.05815, L500.2500 #### [facility] [address] [facility] [place], [address] Carbon dioxide, total [Moles /volume] in Central venous bloodOrdered By: Brayden Mcguire on 01-04-2025 CO2 [Moles/Vol] 17.5 mmol/L Low 21.0-32.0 [facility] Comment on above: Performed By: #### L 501.9520, L506.0400, L501.5200, L501.20969, L500.2500 #### [facility] [address] [place], [address] Chest 1 View (Portable)on Chest 1 View (Portable) [facility] Imaging Services [address] [place] [address] Chest 1 View (Portable) MR#: [id number] Acct: [id number] Name: MAGUI TORRES Rep #: [id number] : 1940 M 84 From: Joe Lara PCP: Dr. Brayden Balderrama MD Status: PRE ER Study: Chest 1 View (Portable) Date of Exam: 01/04/25 Exam# [id number] Ordering Dr: Brayden Mcguire WELDER/FITTER-C PROCEDURE: Chest radiograph REASON FOR EXAM: CHEST PAIN TECHNIQUE: Frontal view of the chest. COMPARISON: None. FINDINGS: Left cardiac pacer in place. Cardiomediastinal silhouette is within normal limits. Lungs are clear. No sizable pneumothorax. RAD/Chest 1 View (Portable) IMPRESSION: No acute airspace abnormality. Reading Location: [facility] CC: DENIZ Mcguire; Dr. Brayden Balderrama MD Serging Machine Operator: Signed Normal [facility] Chloride assayOrdered By: Carl Mcguire on 01-04-2025 Chloride [Moles/Vol] 103 mmol/L Normal 98-108 [facility] Comment on above: Performed By: #### L 501.9520, L506.0400, L501.5200, L501.12064, L500.2500 #### [facility] [address] [facility] [place], [address] Emergency Department Summary on 01-04-2025 Emergency Department Summary [facility] Medical Records Department [address] [place] [address] Emergency Department Summary 01/04/25 MR#: [id number] Acct: [id number] Name: MAGUI TORRES Rep #: [id number] : 1940 84 From: Kehinde Smith DO [...] of 3 seconds. Patient's cardiology is at [facility], he was transferred there and a pacemaker was placed. Patient has been doing well. Patient was at the same restaurant, he started feeling lightheaded, and had a syncopal episode leading over in the trivedi. Patient was brought by EMS. Patient is alert and orient x 4 on arrival. Denies any chest pain, denies any recent infections or fevers or chills. [facility] Medical History (Updated 01/04/25 @ 16:32 by [...] stress, suici (more content not included)... Normal [facility] Eosinophil percentageOrdered By: Brayden Mcguire on 01-04-2025 Eosinophils/100 WBC (Bld) 3.9 % Normal 0-5 [facility] Comment on above: Performed By: #### L 501.9520, L506.0400, L501.5200, L501.52456, L500.2500 #### [facility] [address] [place], [place], [address] Erythrocyte distribution wid th ratioOrdered By: Brayden Mcguire on 01-04-2025 Erythrocyte distribution width (RBC) [Ratio] 13.9 % Normal 11.6-14.6 [facility] Comment on above: Performed By: #### L 501.9520, L506.0400, L501.5200, L501.18290, L500.2500 #### [facility] [address] [place], [address] Erythrocyte distribution wid th standard deviationOrdered By: Brayden Mcguire on 01-04-2025 Erythrocyte distribution width (RBC) [Entitic vol] 42.3 fL 35.1-43.9 [facility] Erythrocyte distribution width (RBC) [Ratio] 42.3 fl 35.1-43.9 [facility] Estimation of creatinine humberto aranceOrdered By: Brayden Mcguire on 01-04-2025 Estimated Creatinine Clearance Calc 29.55 ml/min Low 50-250 [facility] GFR/1.73 sq M.predicted anjel g non-blacks MDRD (S/P/Bld) [Vol rate/Area]Ordered By: Brayden Mcguire on 01-04-2025 Estimated GFR (MDRD) Non-Af Amer 33 Low >60 [facility] Comment on above: mL/min/1.73m2 CKD-EP I Creatinine Equation (2020) Glomerular filtration rate ( GFR) estimation/1.73 sq m using serum, plasma, or whole bOrdered By: Brayden Mcguire on 01-04-2025 GFR/1.73 sq M.predicted among non-blacks MDRD (S/P/Bld) [Vol rate/Area] 33 mL/min/{1.73_m2} Low >60 [facility] Comment on above: mL/min/1.73m2 CKD-EP I Creatinine Equation (2020) Result Comment: mL/m in/1.73m2 CKD-EPI Creatinine Equation (2020) Performed By: #### L 501.9520, L506.0400, L501.5200, L501.96325, L500.2500 #### [facility] [address] [place], [place], [id number] Hemoglobin measurementOrdere d By: Brayden Mcguire on 01-04-2025 Hemoglobin (Bld) [Mass/Vol] 14.7 g/dL Normal 13.0-16.5 [facility] Comment on above: Performed By: #### L 501.9520, L506.0400, L501.5200, L501.41090, L500.2500 #### [facility] [address] [place], [address] Immature granulocytes/100 WB C Auto (Bld)Ordered By: Brayden Mcguire on 01-04-2025 Immature granulocytes/100 WBC (Bld) 0.400 % 0.0-0.9 [facility] Comment on above: IG% - Immature Granu locytes (promyelocytes, myelocytes and metamyelocytes) > 1% indicates that a LEFT SHIFT is Present. International normalized rat io (INR) calculationOrdered By: Brayden Mcguire on 01-04-2025 INR Coag (Bld) [Relative time] 1.0 {INR} [facility] L499.0042on 01-04-2025 Trop T High Sen 19 ng/L Normal <=22 [facility] Comment on above: Result Comment: Hemo lysis present, Results??could be affected. ?? Performed By: #### L 501.9520, L506.0400, L501.5200, L501.96612, L500.2500 #### [facility] [address] [place], [address] L501.4021on 01-04-2025 Trop T High Sen 28 ng/L High <=22 [facility] Comment on above: Performed By: #### L 501.9520, L506.0400, L501.5200, L501.19833, L500.2500 #### [facility] [address] [place], [address] Lymphocytes Auto (Unsp spec) [#/Vol]Ordered By: Brayden Mcguire on 01-04-2025 Lymphocytes (Bld) [#/Vol] 4.77 10*3/uL High 0.83-4.51 [facility] MCV (mean corpuscular volume ) determinationOrdered By: Brayden Mcguire on 01-04-2025 MCV (RBC) [Entitic vol] 86.5 fL Normal 80-94 [facility] Comment on above: Performed By: #### L 501.9520, L506.0400, L501.5200, L501.21463, L500.2500 #### [facility] [address] [place], [address] Mean corpuscular hemoglobin (MCH) determinationOrdered By: Brayden Mcguire on 01-04-2025 MCH (RBC) [Entitic mass] 30.5 pg Normal 27.0-32.0 [facility] Comment on above: Performed By: #### L 501.9520, L506.0400, L501.5200, L501.79130, L500.2500 #### [facility] [address], [address] Mean corpuscular hemoglobin concentration (MCHC) determinationOrdered By: Brayden Mcguire on 01-04-2025 MCHC (RBC) [Mass/Vol] 35.3 g/dL Normal 32-[address] [facility] Comment on above: Performed By: #### L 501.9520, L506.0400, L501.5200, L501.07790, L500.2500 #### [facility] [address] [place], [place], [id number] Mean platelet volume determi nationOrdered By: Brayden Mcguire on 01-04-2025 Platelet mean volume (Bld) [Entitic vol] 10.4 fL Normal 6.2-12.0 [facility] Comment on above: Performed By: #### L 501.9520, L506.0400, L501.5200, L501.47136, L500.2500 #### [facility] [address] [place], [address] Monocyte percentageOrdered B y: Brayden Mcguire on 01-04-2025 Monocytes/100 WBC (Bld) 11.4 % High 0-10 [facility] Comment on above: Performed By: #### L 501.9520, L506.0400, L501.5200, L501.20134, L500.2500 #### [facility] [address] [place], [address] Neutrophil percentageOrdered By: Brayden Mcguire on 01-04-2025 Neutrophils/100 WBC (Bld) 40.1 % Low 47-70 [facility] Comment on above: Performed By: #### L 501.9520, L506.0400, L501.5200, L501.64937, L500.2500 #### [facility] [address] [place], [place], [id number] No Panel InformationOrdered By: Brayden Mcguire on 01-04-2025 Troponin T High Sensitivity 28 ng/L High <22 [facility] Comment on above: Delta: 19 on 5-1130 Nucleated red blood cell per centageOrdered By: Brayden Mcguire on 01-04-2025 Nucleated RBC/100 WBC (Bld) [Ratio] 0 % 0-5 [facility] Platelet countOrdered By: Carl Mcguire on 01-04-2025 Platelets (Bld) [#/Vol] 297 10*3/uL Normal 150-450 [facility] Comment on above: Performed By: #### L 501.9520, L506.0400, L501.5200, L501.84180, L500.2500 #### [facility] [address] [place], [address] Potassium measurement (mass/ volume)Ordered By: Brayden Mcguire on 01-04-2025 Potassium [Moles/Vol] 4.3 mmol/L Normal 3.3-5.[address] [facility] Comment on above: Hemolysis present, R esults could be affected. Result Comment: Hemo lysis present, Results??could be affected. ?? Performed By: #### L 501.9520, L506.0400, L501.5200, L501.17943, L500.2500 #### [facility] [address] [place], [address] Potassium (Unsp spec) [Mass/Vol] 4.3 mmol/L 3.3-5.1 [facility] Comment on above: Hemolysis present, R esults could be affected. Prothrombin Time w/INRon INR Coag (PPP) [Relative time] 1.0 {INR} Normal [facility] Comment on above: Performed By: #### L 501.9520, L506.0400, L501.5200, L501.38753, L500.2500 #### [facility] [address] [place], [address] Prothrombin timeOrdered By: Brayden Mcguire on 01-04-2025 PT Coag (PPP) [Time] 13.3 s Normal 11.7-14.9 [facility] Comment on above: Performed By: #### L 501.9520, L506.0400, L501.5200, L501.94263, L500.2500 #### [facility] [address] [facility] [place], [address] Serum creatinine measurement (mass/volume)Ordered By: Brayden Mcguire on 01-04-2025 Creatinine [Mass/Vol] 1.99 mg/dL High 0.70-1.[address] [facility] Comment on above: Performed By: #### L 501.9520, L506.0400, L501.5200, L501.90322, L500.2500 #### [facility] [address] [facility] [place], [address] Serum glucose measurement (m ass/volume)Ordered By: Brayden Mcguire on 01-04-2025 Glucose [Mass/Vol] 116 mg/dL High 70-99 [facility] Comment on above: Performed By: #### L 501.9520, L506.0400, L501.5200, L501.66370, L500.2500 #### [facility] [address] [place], [address] Serum or plasma calcium tasha urement (mass/volume)Ordered By: Brayden Mcguire on 01-04-2025 Calcium [Mass/Vol] 9.5 mg/dL Normal 7.6-11.0 [facility] Comment on above: Performed By: #### L 501.9520, L506.0400, L501.5200, L501.69341, L500.2500 #### [facility] [address] [place], [place], [id number] Serum or plasma urea nitroge n measurement (mass/volume)Ordered By: Brayden Mcguire on 01-04-2025 Urea nitrogen [Mass/Vol] 28 mg/dL High 4-19 [facility] Comment on above: Performed By: #### L 501.9520, L506.0400, L501.5200, L501.39500, L500.2500 #### [facility] [address] [place], [address] Sodium levelOrdered By: Brayden Mcguire on 01-04-2025 Sodium [Moles/Vol] 136 mmol/L Normal 133-145 [facility] Comment on above: Performed By: #### L 501.9520, L506.0400, L501.5200, L501.67167, L500.2500 #### [facility] [address] [facility] [place], [place], [id number] Troponin T.cardiac High sens itivity method [Mass/Vol]Ordered By: Brayden Mcguire on 01-04-2025 Troponin T High Sensitivity 2 Hour 19 ng/L <22 [facility] Comment on above: Hemolysis present, R esults could be affected. Troponin T.cardiac [Mass/vol ume] in Serum or Plasma by High sensitivity methodOrdered By: Brayden Mcguire on 01-04-2025 Troponin T.cardiac High sensitivity method [Mass/Vol] 19 ng/L <22 [facility] Comment on above: Hemolysis present, R esults could be affected. White blood cell (WBC) count Ordered By: Brayden Mcguire on 01-04-2025 WBC (Bld) [#/Vol] 11.0 10*3/uL Normal 4.4-11.0 [facility] Comment on above: Performed By: #### L 501.9520, L506.0400, L501.5200, L501.84249, L500.2500 #### [facility] [address] [place], [address] .Auto Diffon 12-24-2024 Basophil, Absolute 0.0 10 3/mcL Normal 0.0-0.3 [facility] Comment on above: Performed By: #### C BC, ANEU, GFR, TSHR, MG, BMP, ADIFF #### [address] [address] Basophils/100 WBC (Bld) 0.4 % Normal 0.0-2.5 [facility] Comment on above: Performed By: #### C BC, ANEU, GFR, TSHR, MG, BMP, ADIFF #### [address] [address] Eosinophil, Absolute 0.4 10 3/mcL Normal 0.0-0.7 [facility] Comment on above: Performed By: #### C BC, ANEU, GFR, TSHR, MG, BMP, ADIFF #### [address] [address] Eosinophils/100 WBC (Bld) 4.1 % Normal 0.0-6.0 [facility] Comment on above: Performed By: #### C BC, ANEU, GFR, TSHR, MG, BMP, ADIFF #### [address] [address] Lymphocyte, Absolute 1.9 10 3/mcL Normal 0.9-4.3 [facility] Comment on above: Performed By: #### C BC, ANEU, GFR, TSHR, MG, BMP, ADIFF #### [address] [address] Lymphocytes/100 WBC (Bld) 19.6 % Low 20.0-40.0 [facility] Comment on above: Performed By: #### C BC, ANEU, GFR, TSHR, MG, BMP, ADIFF #### [address] [address] Monocyte, Absolute 1.2 10 3/mcL Normal 0.1-1.4 [facility] Comment on above: Performed By: #### C BC, ANEU, GFR, TSHR, MG, BMP, ADIFF #### [address] [address] Monocytes/100 WBC (Bld) 11.9 % Normal 2.0-13.0 [facility] Comment on above: Performed By: #### C BC, ANEU, GFR, TSHR, MG, BMP, ADIFF #### [address] [address] Neutrophils/100 WBC (Bld) 64.0 % Normal 50.0-75.0 [facility] Comment on above: Performed By: #### C BC, ANEU, GFR, TSHR, MG, BMP, ADIFF #### [address] [address] .GFRon 12-24-2024 Estimated Glomerular Filtration Rate 37 ml/min/1.73sqm Normal [facility] Comment on above: Result Comment: [...] ANEU, GFR, TSHR, MG, BMP, ADIFF #### [address] [address] .NEUABSon 12-24-2024 Neutrophil, Absolute 6.2 10 3/mcL Normal 2.3-8.1 [facility] Comment on above: Performed By: #### C BC, ANEU, GFR, TSHR, MG, BMP, ADIFF #### [address] [address] BMPon 12-24-2024 BUN/Creatinine Ratio 18.3 ratio Normal 10.0-22.0 [facility] Comment on above: Performed By: #### C BC, ANEU, GFR, TSHR, MG, BMP, ADIFF #### [address] [address] Calcium [Mass/Vol] 9.1 mg/dL Normal 8.7-10.4 [facility] Comment on above: Performed By: #### C BC, ANEU, GFR, TSHR, MG, BMP, ADIFF #### [address] [address] Chloride [Moles/Vol] 105 mmol/L Normal 98-110 [facility] Comment on above: Performed By: #### C BC, ANEU, GFR, TSHR, MG, BMP, ADIFF #### [address] [address] CO2 [Moles/Vol] 22 mmol/L Normal 22-32 [facility] Comment on above: Performed By: #### C BC, ANEU, GFR, TSHR, MG, BMP, ADIFF #### [address] [address] Creatinine [Mass/Vol] 1.80 mg/dL High 0.60-1.40 [facility] Comment on above: Result Comment: Test ing performed on Immunetics analyzer using enzymatic creatinine methodology. Performed By: #### C BC, ANEU, GFR, TSHR, MG, BMP, ADIFF #### [address] [address] Electrolyte Balance 8.0 mEq/L Normal 4.0-15.0 [facility] Comment on above: Performed By: #### C BC, ANEU, GFR, TSHR, MG, BMP, ADIFF #### [address] [address] Glucose [Mass/Vol] 94 mg/dL Normal 82-115 [facility] Comment on above: Performed By: #### C BC, ANEU, GFR, TSHR, MG, BMP, ADIFF #### [address] [address] Potassium [Moles/Vol] 4.4 mmol/L Normal 3.5-5.0 [facility] Comment on above: Performed By: #### C BC, ANEU, GFR, TSHR, MG, BMP, ADIFF #### [place] [address] Sodium [Moles/Vol] 135 mmol/L Low 136-145 [facility] Comment on above: Performed By: #### C BC, ANEU, GFR, TSHR, MG, BMP, ADIFF #### [place] [address] Urea nitrogen [Mass/Vol] 33.0 mg/dL High 8.0-22.0 [facility] Comment on above: Performed By: #### C BC, ANEU, GFR, TSHR, MG, BMP, ADIFF #### [place] [address] CBCon 12-24-2024 Erythrocyte distribution width (RBC) [Ratio] 14.0 % Normal 11.5-15.5 [facility] Comment on above: Performed By: #### C BC, ANEU, GFR, TSHR, MG, BMP, ADIFF #### [place] [address] Hematocrit (Bld) [Volume fraction] 37.0 % Low 40.0-52.0 [facility] Comment on above: Performed By: #### C BC, ANEU, GFR, TSHR, MG, BMP, ADIFF #### [place] [address] Hgb 13.3 G/dL Normal 13.0-17.5 [facility] Comment on above: Performed By: #### C BC, ANEU, GFR, TSHR, MG, BMP, ADIFF #### [place] [address] MCH (RBC) [Entitic mass] 31.3 pg Normal 27.0-33.0 [facility] Comment on above: Performed By: #### C BC, ANEU, GFR, TSHR, MG, BMP, ADIFF #### [place] [address] MCHC 35.8 G/dL Normal 32.0-36.0 [facility] Comment on above: Performed By: #### C BC, ANEU, GFR, TSHR, MG, BMP, ADIFF #### [place] [address] MCV (RBC) [Entitic vol] 87.3 fL Normal 81.0-100.0 [facility] Comment on above: Performed By: #### C BC, ANEU, GFR, TSHR, MG, BMP, ADIFF #### [place] [address] Platelet 195 10 3/mcL Normal 150-450 [facility] Comment on above: Performed By: #### C BC, ANEU, GFR, TSHR, MG, BMP, ADIFF #### [place] [address] Platelet mean volume (Bld) [Entitic vol] 8.4 fL Normal 6.4-10.5 [facility] Comment on above: Performed By: #### C BC, ANEU, GFR, TSHR, MG, BMP, ADIFF #### [place] [address] RBC 4.24 10 6/mcL Low 4.50-6.00 [facility] Comment on above: Performed By: #### C BC, ANEU, GFR, TSHR, MG, BMP, ADIFF #### [place] [address] WBC 9.8 10 3/mcL Normal 4.5-10.8 [facility] Comment on above: Performed By: #### C BC, ANEU, GFR, TSHR, MG, BMP, ADIFF #### [place] [address] LABORATORYOrdered By: SYSTEM SYSTEM on 12-24-2024 Basophils [...] above: Interpretive Data: T esting performed on Immunetics analyzer using enzymatic creatinine methodology. Electrolyte Balance [...] 12-24-2024 Magnesium [Mass/Vol] 2.1 mg/dL Normal 1.6-2.4 [facility] Comment on above: Performed By: #### C BC, ANEU, GFR, TSHR, MG, BMP, ADIFF #### [place] [address] .Auto Diffon 12-23-2024 Basophil, Absolute 0.1 10 3/mcL Normal 0.0-0.3 [facility] Comment on above: Performed By: #### C BC, ANEU, GFR, TSHR, MG, BMP, ADIFF #### [address] [address] Basophils/100 WBC (Bld) 0.7 % Normal 0.0-2.5 [facility] Comment on above: Performed By: #### C BC, ANEU, GFR, TSHR, MG, BMP, ADIFF #### [address] [address] Eosinophil, Absolute 0.4 10 3/mcL Normal 0.0-0.7 [facility] Comment on above: Performed By: #### C BC, ANEU, GFR, TSHR, MG, BMP, ADIFF #### [address] [address] Eosinophils/100 WBC (Bld) 3.5 % Normal 0.0-6.0 [facility] Comment on above: Performed By: #### C BC, ANEU, GFR, TSHR, MG, BMP, ADIFF #### [address] [address] Lymphocyte, Absolute 1.5 10 3/mcL Normal 0.9-4.3 [facility] Comment on above: Performed By: #### C BC, ANEU, GFR, TSHR, MG, BMP, ADIFF #### [address] [address] Lymphocytes/100 WBC (Bld) 14.0 % Low 20.0-40.0 [facility] Comment on above: Performed By: #### C BC, ANEU, GFR, TSHR, MG, BMP, ADIFF #### [address] [address] Monocyte, Absolute 1.0 10 3/mcL Normal 0.1-1.4 [facility] Comment on above: Performed By: #### C BC, ANEU, GFR, TSHR, MG, BMP, ADIFF #### [address] [address] Monocytes/100 WBC (Bld) 9.7 % Normal 2.0-13.0 [facility] Comment on above: Performed By: #### C BC, ANEU, GFR, TSHR, MG, BMP, ADIFF #### [place] [id number] [address] [place] [address] Neutrophils/100 WBC (Bld) 72.1 % Normal 50.0-75.0 [facility] Comment on above: Performed By: #### C BC, ANEU, GFR, TSHR, MG, BMP, ADIFF #### [address] [address] .GFRon 12-23-2024 Estimated Glomerular Filtration Rate 34 ml/min/1.73sqm Normal [facility] Comment on above: Result Comment: [...] ANEU, GFR, TSHR, MG, BMP, ADIFF #### [address] [address] .NEUABSon 12-23-2024 Neutrophil, Absolute 7.7 10 3/mcL Normal 2.3-8.1 [facility] Comment on above: Performed By: #### C BC, ANEU, GFR, TSHR, MG, BMP, ADIFF #### [address] [address] BMPon 12-23-2024 BUN/Creatinine Ratio 14.9 ratio Normal 10.0-22.0 [facility] Comment on above: Performed By: #### C BC, ANEU, GFR, TSHR, MG, BMP, ADIFF #### [address] [address] Calcium [Mass/Vol] 9.2 mg/dL Normal 8.7-10.4 [facility] Comment on above: Performed By: #### C BC, ANEU, GFR, TSHR, MG, BMP, ADIFF #### [address] [address] Chloride [Moles/Vol] 104 mmol/L Normal 98-110 [facility] Comment on above: Performed By: #### C BC, ANEU, GFR, TSHR, MG, BMP, ADIFF #### [address] [address] CO2 [Moles/Vol] 24 mmol/L Normal 22-32 [facility] Comment on above: Performed By: #### C BC, ANEU, GFR, TSHR, MG, BMP, ADIFF #### [address] [address] Creatinine [Mass/Vol] 1.95 mg/dL High 0.60-1.40 [facility] Comment on above: Result Comment: Test ing performed on Immunetics analyzer using enzymatic creatinine methodology. Performed By: #### C BC, ANEU, GFR, TSHR, MG, BMP, ADIFF #### [address] [address] Electrolyte Balance 6.0 mEq/L Normal 4.0-15.0 [facility] Comment on above: Performed By: #### C BC, ANEU, GFR, TSHR, MG, BMP, ADIFF #### [address] [address] Glucose [Mass/Vol] 116 mg/dL High 82-115 [facility] Comment on above: Performed By: #### C BC, ANEU, GFR, TSHR, MG, BMP, ADIFF #### [address] [address] Potassium [Moles/Vol] 4.7 mmol/L Normal 3.5-5.0 [facility] Comment on above: Performed By: #### C BC, ANEU, GFR, TSHR, MG, BMP, ADIFF #### [address] [address] Sodium [Moles/Vol] 134 mmol/L Low 136-145 [facility] Comment on above: Performed By: #### C BC, ANEU, GFR, TSHR, MG, BMP, ADIFF #### [place] [address] Urea nitrogen [Mass/Vol] 29.0 mg/dL High 8.0-22.0 [facility] Comment on above: Performed By: #### C BC, ANEU, GFR, TSHR, MG, BMP, ADIFF #### [place] [address] CBCon 12-23-2024 Erythrocyte distribution width (RBC) [Ratio] 14.3 % Normal 11.5-15.5 [facility] Comment on above: Performed By: #### M G, ADIFF, CBC, GFR, BMP, ANEU ####[place] [address] Hematocrit (Bld) [Volume fraction] 38.8 % Low 40.0-52.0 [facility] Comment on above: Performed By: #### M G, ADIFF, CBC, GFR, BMP, ANEU ####[place] [address] Hgb 13.7 G/dL Normal 13.0-17.5 [facility] Comment on above: Performed By: #### M G, ADIFF, CBC, GFR, BMP, ANEU ####[place] [address] MCH (RBC) [Entitic mass] 31.4 pg Normal 27.0-33.0 [facility] Comment on above: Performed By: #### M G, ADIFF, CBC, GFR, BMP, ANEU ####[place] [address] MCHC 35.3 G/dL Normal 32.0-36.0 [facility] Comment on above: Performed By: #### M G, ADIFF, CBC, GFR, BMP, ANEU ####[place] [address] MCV (RBC) [Entitic vol] 88.9 fL Normal 81.0-100.0 [facility] Comment on above: Performed By: #### M G, ADIFF, CBC, GFR, BMP, ANEU ####[place] [address] Platelet 215 10 3/mcL Normal 150-450 [facility] Comment on above: Performed By: #### M G, ADIFF, CBC, GFR, BMP, ANEU ####[place] [address] Platelet mean volume (Bld) [Entitic vol] 8.3 fL Normal 6.4-10.5 [facility] Comment on above: Performed By: #### M G, ADIFF, CBC, GFR, BMP, ANEU ####[place] [address] RBC 4.36 10 6/mcL Low 4.50-6.00 [facility] Comment on above: Performed By: #### M G, ADIFF, CBC, GFR, BMP, ANEU ####[place] [address] WBC 10.7 10 3/mcL Normal 4.5-10.8 [facility] Comment on above: Performed By: #### M G, ADIFF, CBC, GFR, BMP, ANEU ####[place] [address] HHon 12-23-2024 Hematocrit (Bld) [Volume fraction] 39.0 % Low 40.0-52.0 [facility] Comment on above: Performed By: #### H H #### [place] [address] Hgb 13.6 G/dL Normal 13.0-17.5 [facility] Comment on above: Performed By: #### H H #### [place] [address] LABORATORYOrdered By: SYSTEM SYSTEM on 12-23-2024 Hematocrit [...] above: Interpretive Data: T esting performed on Immunetics analyzer using enzymatic creatinine methodology. Electrolyte Balance [...] 12-23-2024 Magnesium [Mass/Vol] 1.8 mg/dL Normal 1.6-2.4 [facility] Comment on above: Performed By: #### C BC, ANEU, GFR, TSHR, MG, BMP, ADIFF #### [facility] [address] [place] [address] XR CHEST 2 VIEWSon XR CHEST 2 [...] 12/23/2024 11:56:24 AM Ordering Provider: DIGNA Diez [facility] .Auto Diffon 12-22-2024 Basophil, Absolute 0.1 10 3/mcL Normal 0.0-0.3 [facility] Comment on above: Performed By: #### C BC, ANEU, GFR, TSHR, MG, BMP, ADIFF #### [facility] [address] [place] [address] Basophils/100 WBC (Bld) 1.1 % Normal 0.0-2.5 [facility] Comment on above: Performed By: #### C BC, ANEU, GFR, TSHR, MG, BMP, ADIFF #### [address] [address] Eosinophil, Absolute 0.6 10 3/mcL Normal 0.0-0.7 [facility] Comment on above: Performed By: #### C BC, ANEU, GFR, TSHR, MG, BMP, ADIFF #### [address] [address] Eosinophils/100 WBC (Bld) 5.7 % Normal 0.0-6.0 [facility] Comment on above: Performed By: #### C BC, ANEU, GFR, TSHR, MG, BMP, ADIFF #### [address] [address] Lymphocyte, Absolute 2.7 10 3/mcL Normal 0.9-4.3 [facility] Comment on above: Performed By: #### C BC, ANEU, GFR, TSHR, MG, BMP, ADIFF #### [address] [address] Lymphocytes/100 WBC (Bld) 27.0 % Normal 20.0-40.0 [facility] Comment on above: Performed By: #### C BC, ANEU, GFR, TSHR, MG, BMP, ADIFF #### [address] [address] Monocyte, Absolute 1.2 10 3/mcL Normal 0.1-1.4 [facility] Comment on above: Performed By: #### C BC, ANEU, GFR, TSHR, MG, BMP, ADIFF #### [address] [address] Monocytes/100 WBC (Bld) 11.9 % Normal 2.0-13.0 [facility] Comment on above: Performed By: #### C BC, ANEU, GFR, TSHR, MG, BMP, ADIFF #### [address] [address] Neutrophils/100 WBC (Bld) 54.3 % Normal 50.0-75.0 [facility] Comment on above: Performed By: #### C BC, ANEU, GFR, TSHR, MG, BMP, ADIFF #### [address] [address] .GFRon 12-22-2024 Estimated Glomerular Filtration Rate 36 ml/min/1.73sqm Normal [facility] Comment on above: Result Comment: [...] ANEU, GFR, TSHR, MG, BMP, ADIFF #### [place] [id number] .NEUABSon 12-22-2024 Neutrophil, Absolute 5.4 10 3/mcL Normal 2.3-8.1 [facility] Comment on above: Performed By: #### C BC, ANEU, GFR, TSHR, MG, BMP, ADIFF #### [address] [address] BMPon 12-22-2024 BUN/Creatinine Ratio 15.3 ratio Normal 10.0-22.0 [facility] Comment on above: Performed By: #### C BC, ANEU, GFR, TSHR, MG, BMP, ADIFF #### [address] [address] Calcium [Mass/Vol] 9.3 mg/dL Normal 8.7-10.4 [facility] Comment on above: Performed By: #### C BC, ANEU, GFR, TSHR, MG, BMP, ADIFF #### [address] [address] Chloride [Moles/Vol] 105 mmol/L Normal 98-110 [facility] Comment on above: Performed By: #### C BC, ANEU, GFR, TSHR, MG, BMP, ADIFF #### [address] [address] CO2 [Moles/Vol] 28 mmol/L Normal 22-32 [facility] Comment on above: Performed By: #### C BC, ANEU, GFR, TSHR, MG, BMP, ADIFF #### [address] [address] Creatinine [Mass/Vol] 1.83 mg/dL High 0.60-1.40 [place] [facility] Comment on above: Result Comment: Test ing performed on Immunetics analyzer using enzymatic creatinine methodology. Performed By: #### C BC, ANEU, GFR, TSHR, MG, BMP, ADIFF #### [address] [address] Electrolyte Balance 5.0 mEq/L Normal 4.0-15.0 [facility] Comment on above: Performed By: #### C BC, ANEU, GFR, TSHR, MG, BMP, ADIFF #### [address] [address] Glucose [Mass/Vol] 93 mg/dL Normal 82-115 [facility] Comment on above: Performed By: #### C BC, ANEU, GFR, TSHR, MG, BMP, ADIFF #### [address] [address] Potassium [Moles/Vol] 4.6 mmol/L Normal 3.5-5.0 [facility] Comment on above: Performed By: #### C BC, ANEU, GFR, TSHR, MG, BMP, ADIFF #### [address] [address] Sodium [Moles/Vol] 138 mmol/L Normal 136-145 [facility] Comment on above: Performed By: #### C BC, ANEU, GFR, TSHR, MG, BMP, ADIFF #### [address] [address] Urea nitrogen [Mass/Vol] 28.0 mg/dL High 8.0-22.0 [facility] Comment on above: Performed By: #### C BC, ANEU, GFR, TSHR, MG, BMP, ADIFF #### [place] [id number] CBCon 12-22-2024 Erythrocyte distribution width (RBC) [Ratio] 14.3 % Normal 11.5-15.5 [facility] Comment on above: Performed By: #### C BC, ANEU, GFR, TSHR, MG, BMP, ADIFF #### [place] [address] Hematocrit (Bld) [Volume fraction] 41.4 % Normal 40.0-52.0 [facility] Comment on above: Performed By: #### C BC, ANEU, GFR, TSHR, MG, BMP, ADIFF #### [place] [address] Hgb 14.2 G/dL Normal 13.0-17.5 [facility] Comment on above: Performed By: #### C BC, ANEU, GFR, TSHR, MG, BMP, ADIFF #### [place] [address] MCH (RBC) [Entitic mass] 30.4 pg Normal 27.0-33.0 [facility] Comment on above: Performed By: #### C BC, ANEU, GFR, TSHR, MG, BMP, ADIFF #### [place] [address] MCHC 34.2 G/dL Normal 32.0-36.0 [facility] Comment on above: Performed By: #### C BC, ANEU, GFR, TSHR, MG, BMP, ADIFF #### [place] [address] MCV (RBC) [Entitic vol] 88.9 fL Normal 81.0-100.0 [facility] Comment on above: Performed By: #### C BC, ANEU, GFR, TSHR, MG, BMP, ADIFF #### [place] [address] Platelet 236 10 3/mcL Normal 150-450 [facility] Comment on above: Performed By: #### C BC, ANEU, GFR, TSHR, MG, BMP, ADIFF #### [address], [place] [address] Platelet mean volume (Bld) [Entitic vol] 8.2 fL Normal 6.4-10.5 [facility] Comment on above: Performed By: #### C BC, ANEU, GFR, TSHR, MG, BMP, ADIFF #### [facility] [address] [place] [address] RBC 4.66 10 6/mcL Normal 4.50-6.00 [facility] Comment on above: Performed By: #### C BC, ANEU, GFR, TSHR, MG, BMP, ADIFF #### [place] [id number] [place] [address] WBC 10.0 10 3/mcL Normal 4.5-10.8 [facility] Comment on above: Performed By: #### C BC, ANEU, GFR, TSHR, MG, BMP, ADIFF #### [place] [id number] [place], [place] [id number] LABORATORYOrdered By: Gaviota Yusuf on 12-22-2024 Blood Glucose Testing Reason Symptoms of hypoglycemia (12/22/24 10:08 AM) [facility] Work Phone: Glucose [Mass/Vol] 103 mg/dL Normal 82 - 115 mg/dL [facility] Work Phone: LABORATORYOrdered By: SYSTEM SYSTEM on [...] Comment on above: Interpretive Data: Shelbi clark [employer] (CHEST, 1992, 102:312S-25S) [...] above: Interpretive Data: T esting performed on Immunetics analyzer using enzymatic creatinine methodology. Electrolyte Balance [...] 12-22-2024 Magnesium [Mass/Vol] 2.0 mg/dL Normal 1.6-2.4 [facility] Comment on above: Performed By: #### C BC, ANEU, GFR, TSHR, MG, BMP, ADIFF #### [facility] [address] [place] [address] PROon 12-22-2024 INR Coag (PPP) [Relative time] 1.1 {INR} Normal [facility] Comment on above: Result Comment: [employer] (CHEST, 1992, 102:312S-25S) recommended therapeutic range for oral anticoagulant therapy is: LOW RISK: Prophylaxis of venous thrombosis INR: 2.0-3.0 Treatment of pulmonary embolism 2.0-3.0 Prevention of systemic embolism 2.0-3.0 HIGH RISK: Mechanical prosthetic valves 2.5-3.5 Performed By: #### P RO ####[facility] [place] [address] PT Coag (PPP) [Time] 12.2 s Normal 9.0-14.4 [facility] Comment on above: Result Comment: Effe ctive 05/05/08, Protime results may be affected by some antibiotics (i.e. Ciprofloxacin, Azithromycin, Bactrim) which may potentiate the action of oral anticoagulants, with further increases in Protime/INR. Performed By: #### P RO ####[facility] [place] [address] XR CHEST 1 VIEWon 12-22-2024 XR CHEST [...] 12/22/2024 7:11:13 PM Ordering Provider: VENITA Diez [facility] .Auto Diffon 12-21-2024 Basophil, Absolute 0.1 10 3/mcL Normal 0.0-0.3 [facility] Comment on above: Performed By: #### C BC, ANEU, GFR, TSHR, MG, BMP, ADIFF #### [address] [address] Basophils/100 WBC (Bld) 0.8 % Normal 0.0-2.5 [facility] Comment on above: Performed By: #### C BC, ANEU, GFR, TSHR, MG, BMP, ADIFF #### [address] [address] Eosinophil, Absolute 0.5 10 3/mcL Normal 0.0-0.7 [facility] Comment on above: Performed By: #### C BC, ANEU, GFR, TSHR, MG, BMP, ADIFF #### [address] [address] Eosinophils/100 WBC (Bld) 5.0 % Normal 0.0-6.0 [facility] Comment on above: Performed By: #### C BC, ANEU, GFR, TSHR, MG, BMP, ADIFF #### [address] [address] Lymphocyte, Absolute 2.2 10 3/mcL Normal 0.9-4.3 [facility] Comment on above: Performed By: #### C BC, ANEU, GFR, TSHR, MG, BMP, ADIFF #### [address] [address] Lymphocytes/100 WBC (Bld) 22.8 % Normal 20.0-40.0 [facility] Comment on above: Performed By: #### C BC, ANEU, GFR, TSHR, MG, BMP, ADIFF #### [address] [address] Monocyte, Absolute 1.0 10 3/mcL Normal 0.1-1.4 [facility] Comment on above: Performed By: #### C BC, ANEU, GFR, TSHR, MG, BMP, ADIFF #### [address] [address] Monocytes/100 WBC (Bld) 10.5 % Normal 2.0-13.0 [facility] Comment on above: Performed By: #### C BC, ANEU, GFR, TSHR, MG, BMP, ADIFF #### [address] [address] Neutrophils/100 WBC (Bld) 60.9 % Normal 50.0-75.0 [facility] Comment on above: Performed By: #### C BC, ANEU, GFR, TSHR, MG, BMP, ADIFF #### [address] [address] .GFRon 12-21-2024 Estimated Glomerular Filtration Rate 39 ml/min/1.73sqm Normal [facility] Comment on above: Result Comment: [...] ANEU, GFR, TSHR, MG, BMP, ADIFF #### [address] [address] .NEUABSon 12-21-2024 Neutrophil, Absolute 5.9 10 3/mcL Normal 2.3-8.1 [facility] Comment on above: Performed By: #### C BC, ANEU, GFR, TSHR, MG, BMP, ADIFF #### [place] [address] BMPon 12-21-2024 BUN/Creatinine Ratio 17.8 ratio Normal 10.0-22.0 [facility] Comment on above: Performed By: #### C BC, ANEU, GFR, TSHR, MG, BMP, ADIFF #### [address] [address] Calcium [Mass/Vol] 8.9 mg/dL Normal 8.7-10.4 [facility] Comment on above: Performed By: #### C BC, ANEU, GFR, TSHR, MG, BMP, ADIFF #### [address] [address] Chloride [Moles/Vol] 107 mmol/L Normal 98-110 [facility] Comment on above: Performed By: #### C BC, ANEU, GFR, TSHR, MG, BMP, ADIFF #### [address] [address] CO2 [Moles/Vol] 25 mmol/L Normal 22-32 [facility] Comment on above: Performed By: #### C BC, ANEU, GFR, TSHR, MG, BMP, ADIFF #### [address] [address] Creatinine [Mass/Vol] 1.74 mg/dL High 0.60-1.40 [facility] Comment on above: Result Comment: Test ing performed on Immunetics analyzer using enzymatic creatinine methodology. Performed By: #### C BC, ANEU, GFR, TSHR, MG, BMP, ADIFF #### [address] [address] Electrolyte Balance 5.0 mEq/L Normal 4.0-15.0 [facility] Comment on above: Performed By: #### C BC, ANEU, GFR, TSHR, MG, BMP, ADIFF #### [address] [address] Glucose [Mass/Vol] 129 mg/dL High 82-115 [facility] Comment on above: Performed By: #### C BC, ANEU, GFR, TSHR, MG, BMP, ADIFF #### [address] [address] Potassium [Moles/Vol] 4.3 mmol/L Normal 3.5-5.0 [facility] Comment on above: Performed By: #### C BC, ANEU, GFR, TSHR, MG, BMP, ADIFF #### [place] [address] Sodium [Moles/Vol] 137 mmol/L Normal 136-145 [facility] Comment on above: Performed By: #### C BC, ANEU, GFR, TSHR, MG, BMP, ADIFF #### [place] [address] Urea nitrogen [Mass/Vol] 31.0 mg/dL High 8.0-22.0 [facility] Comment on above: Performed By: #### C BC, ANEU, GFR, TSHR, MG, BMP, ADIFF #### [place] [address] CBCon 12-21-2024 Erythrocyte distribution width (RBC) [Ratio] 14.8 % Normal 11.5-15.5 [facility] Comment on above: Performed By: #### C BC, ANEU, GFR, TSHR, MG, BMP, ADIFF #### [place] [address] Hematocrit (Bld) [Volume fraction] 39.3 % Low 40.0-52.0 [facility] Comment on above: Performed By: #### C BC, ANEU, GFR, TSHR, MG, BMP, ADIFF #### [place] [address] Hgb 13.7 G/dL Normal 13.0-17.5 [facility] Comment on above: Performed By: #### C BC, ANEU, GFR, TSHR, MG, BMP, ADIFF #### [place] [address] MCH (RBC) [Entitic mass] 30.9 pg Normal 27.0-33.0 [facility] Comment on above: Performed By: #### C BC, ANEU, GFR, TSHR, MG, BMP, ADIFF #### [place] [address] MCHC 34.9 G/dL Normal 32.0-36.0 [facility] Comment on above: Performed By: #### C BC, ANEU, GFR, TSHR, MG, BMP, ADIFF #### [place] [id number] MCV (RBC) [Entitic vol] 88.5 fL Normal 81.0-100.0 [facility] Comment on above: Performed By: #### C BC, ANEU, GFR, TSHR, MG, BMP, ADIFF #### [place] [address] Platelet 201 10 3/mcL Normal 150-450 [facility] Comment on above: Performed By: #### C BC, ANEU, GFR, TSHR, MG, BMP, ADIFF #### [place] [address] Platelet mean volume (Bld) [Entitic vol] 8.6 fL Normal 6.4-10.5 [facility] Comment on above: Performed By: #### C BC, ANEU, GFR, TSHR, MG, BMP, ADIFF #### [place] [address] RBC 4.44 10 6/mcL Low 4.50-6.00 [facility] Comment on above: Performed By: #### C BC, ANEU, GFR, TSHR, MG, BMP, ADIFF #### [place] [id number] WBC 9.7 10 3/mcL Normal 4.5-10.8 [facility] Comment on above: Performed By: #### C BC, ANEU, GFR, TSHR, MG, BMP, ADIFF #### [place] [address] LABORATORYOrdered By: SYSTEM SYSTEM on 12-21-2024 TSH Qn 3.744 mIU/mL Normal 0.550 - 4.780 mIU/mL AH ADM SS MGon 12-21-2024 Magnesium [Mass/Vol] 1.9 mg/dL Normal 1.6-2.4 [facility] Comment on above: Performed By: #### C BC, ANEU, GFR, TSHR, MG, BMP, ADIFF #### [place] [id number] [place] [address] TSHRon 12-21-2024 TSH 3.744 mIU/mL Normal 0.550-4.780 [facility] Comment on above: Performed By: #### C BC, ANEU, GFR, TSHR, MG, BMP, ADIFF #### [address] [address] 12 Lead EKGon 12-20-[address] [facility] [address] [place] [address] 12 Lead EKG 12/20/24 1136 MR#: [id number] Acct: [id number] Name: MAGUI TORRES Rep #: [id number] : 1940 84 From: Javan Parks MD [...] 17-Feb-2023) Abnormal ECG Confirmed by Javan Parks ([id number]), features editor JOURDAN CHEN ([id number]) on 12/22/2024 7:02:59 AM Referred By: Confirmed By: Javan Parks 12/22/24 0703 Date Javan Parks MD CC: Dr. Anya Basilio DO; Dr. Brayden Balderrama MD Signed Normal [facility] BUN/creatinine ratioOrdered By: Anya Basilio on 12-20-2024 Urea nitrogen/Creatinine [Mass ratio] 16.8 mg/mg 10-20 [facility] Basic Metabolic Profile (BMP )on 12-20-2024 Anion gap [Moles/Vol] 15 mmol/L Normal 5-[address] [facility] Comment on above: Performed By: #### L 501.9520, L506.0400, L501.5200, L501.85001, L500.2500 #### [facility] [address] [place], [address] BUN/CRE 16.8 RATIO Normal 10-20 [facility] Comment on above: Performed By: #### L 501.9520, L506.0400, L501.5200, L501.61841, L500.2500 #### [facility] [address] [place], [address] Calcium [Mass/Vol] 9.4 mg/dL Normal 7.6-11.0 [facility] Comment on above: Performed By: #### L 501.9520, L506.0400, L501.5200, L501.42129, L500.2500 #### [facility] [address] [place], [address] Chloride [Moles/Vol] 104 mmol/L Normal 96-108 [facility] Comment on above: Performed By: #### L 501.9520, L506.0400, L501.5200, L501.96950, L500.2500 #### [facility] [address] [place], [address] CO2 [Moles/Vol] 17.6 mmol/L Low 22.0-29.0 [facility] Comment on above: Performed By: #### L 501.9520, L506.0400, L501.5200, L501.38688, L500.2500 #### [facility] [address] [place], [address] Creatinine [Mass/Vol] 1.82 mg/dL High 0.70-1.[address] [facility] Comment on above: Performed By: #### L 501.9520, L506.0400, L501.5200, L501.69152, L500.2500 #### [facility] [address] [place], [address] ECRCL 32.31 ml/min Normal [facility] Comment on above: Performed By: #### L 501.9520, L506.0400, L501.5200, L501.38143, L500.2500 #### [facility] [address] [place], [address] GFR/1.73 sq M.predicted among non-blacks MDRD (S/P/Bld) [Vol rate/Area] 37 mL/min/{1.73_m2} Low >60 [facility] Comment on above: Result Comment: mL/m in/1.73m2 CKD-EPI Creatinine Equation (2020) Performed By: #### L 501.9520, L506.0400, L501.5200, L501.46004, L500.2500 #### [facility] [address] [place], [address] Glucose [Mass/Vol] 139 mg/dL High 70-99 [facility] Comment on above: Performed By: #### L 501.9520, L506.0400, L501.5200, L501.20898, L500.2500 #### [facility] [address] [place], [address] Potassium [Moles/Vol] 3.8 mmol/L Normal 3.3-5.[address] [facility] Comment on above: Performed By: #### L 501.9520, L506.0400, L501.5200, L501.39706, L500.2500 #### [facility] [address] [place], [address] Sodium [Moles/Vol] 137 mmol/L Normal 133-145 [facility] Comment on above: Performed By: #### L 501.9520, L506.0400, L501.5200, L501.37864, L500.2500 #### [facility] [address] [place], [address] Urea nitrogen [Mass/Vol] 31 mg/dL High 4-19 [facility] Comment on above: Performed By: #### L 501.9520, L506.0400, L501.5200, L501.71570, L500.2500 #### [facility] [address] [place], [address] Bilirubin Test strip Ql (U)O rdered By: Anya Basilio on 12-20-2024 Bilirubin Ql (U) Negative Negative [facility] CBC-Complete Blood Cnt No Di ffon 12-20-2024 Erythrocyte distribution width (RBC) [Ratio] 13.7 % Normal 11.6-14.6 [facility] Comment on above: Performed By: #### L 501.9520, L506.0400, L501.5200, L501.61612, L500.2500 #### [facility] [address] [place], [address] Hematocrit (Bld) [Volume fraction] 41.5 % Normal 40-54 [facility] Comment on above: Performed By: #### L 501.9520, L506.0400, L501.5200, L501.73849, L500.2500 #### [facility] [address] [place], [address] Hemoglobin (Bld) [Mass/Vol] 14.5 g/dL Normal 13.0-16.5 [facility] Comment on above: Performed By: #### L 501.9520, L506.0400, L501.5200, L501.59359, L500.2500 #### [facility] [address] [place], [address] MCH (RBC) [Entitic mass] 30.4 pg Normal 27.0-32.0 [facility] Comment on above: Performed By: #### L 501.9520, L506.0400, L501.5200, L501.13356, L500.2500 #### [facility] [address] [place], [address] MCHC (RBC) [Mass/Vol] 34.9 g/dL Normal 32-[address] [facility] Comment on above: Performed By: #### L 501.9520, L506.0400, L501.5200, L501.58998, L500.2500 #### [facility] [address] [place], [address] MCV (RBC) [Entitic vol] 87.0 fL Normal 80-94 [facility] Comment on above: Performed By: #### L 501.9520, L506.0400, L501.5200, L501.93351, L500.2500 #### [facility] [address] [place], [address] Platelet mean volume (Bld) [Entitic vol] 10.4 fL Normal 6.2-12.0 [facility] Comment on above: Performed By: #### L 501.9520, L506.0400, L501.5200, L501.45368, L500.2500 #### [facility] [address] [place], [address] Platelets (Bld) [#/Vol] 279 10*3/uL Normal 150-450 [facility] Comment on above: Performed By: #### L 501.9520, L506.0400, L501.5200, L501.11411, L500.2500 #### [facility] [address] [place], [address] RBC (Bld) [#/Vol] 4.77 10*6/uL Normal 4.6-6.2 [facility] Comment on above: Performed By: #### L 501.9520, L506.0400, L501.5200, L501.64880, L500.2500 #### [facility] [address] [place], [address] RDW SD 43.7 fl Normal 35.1-43.9 [facility] Comment on above: Performed By: #### L 501.9520, L506.0400, L501.5200, L501.51574, L500.2500 #### [facility] [address] [place], [address] WBC (Bld) [#/Vol] 12.3 10*3/uL High 4.4-11.0 [facility] Comment on above: Performed By: #### L 501.9520, L506.0400, L501.5200, L501.46640, L500.2500 #### [facility] [address] [place], [address] Carbon dioxide measurementOr dered By: Anya Basilio on 12-20-2024 CO2 [Moles/Vol] 17.6 mmol/L Low 22.0-29.0 [facility] Chest PA and Lateralon 12-20 Chest PA and Lateral [facility] Imaging Services [address] [place] [address] Chest PA and Lateral MR#: [id number] Acct: [id number] Name: MAGUI TORRES Rep #: [id number] : 1940 M 84 From: Brayden Chung MD PCP: Dr. Brayden Balderrama MD Status: [facility] ER Study: Chest PA and Lateral Date of Exam: 12/20/24 Exam# [id number] Ordering Dr: Anya Basilio DO PROCEDURE: CHEST [...] Anya Basilio DO; Dr. 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 Normal [facility] Epithelial cells.squamous LM Ql (Urine sed)Ordered By: Anya Basilio on 12-20-2024 Epithelial cells.squamous LM.HPF (Urine sed) [#/Area] 0 /[HPF] 0-5 [facility] Erythrocyte distribution wid th ratioOrdered By: Anya Basilio on 12-20-2024 Erythrocyte distribution width (RBC) [Ratio] 13.7 % 11.6-14.6 [facility] Erythrocyte distribution wid th standard deviationOrdered By: Anya Basilio on 12-20-2024 Erythrocyte distribution width (RBC) [Entitic vol] 43.7 fL 35.1-43.9 [facility] Erythrocyte distribution width (RBC) [Ratio] 43.7 fl 35.1-43.9 [facility] Estimation of creatinine humberto aranceOrdered By: Anya Basiilo on 12-20-2024 Estimated Creatinine Clearance Calc 32.31 ml/min [facility] GFR/1.73 sq M.predicted anjel g non-blacks MDRD (S/P/Bld) [Vol rate/Area]Ordered By: Anya Basilio on 12-20-2024 Estimated GFR (MDRD) Non-Af Amer 37 Low >60 [facility] Comment on above: mL/min/1.73m2 CKD-EP I Creatinine Equation (2020) Glomerular filtration rate ( GFR) estimation/1.73 sq m using serum, plasma, or whole bOrdered By: Anya Basilio on 12-20-2024 GFR/1.73 sq M.predicted among non-blacks MDRD (S/P/Bld) [Vol rate/Area] 37 mL/min/{1.73_m2} Low >60 [facility] Comment on above: mL/min/1.73m2 CKD-EP I Creatinine Equation (2020) Glucose Ql (U)Ordered By: Jose Basilio on 12-20-2024 Urine Glucose (UA) Normal mg/dl Normal [facility] Hematocrit Auto (Bld) [Volum e fraction]Ordered By: Anya Basilio on 12-20-2024 Hematocrit (Bld) [Volume fraction] 41.5 % 40-54 [facility] Hemoglobin measurementOrdere d By: Anya Basilio on 12-20-2024 Hemoglobin (Bld) [Mass/Vol] 14.5 g/dL 13.0-16.5 [facility] International normalized rat io (INR) calculationOrdered By: Anya Basilio on 12-20-2024 INR Coag (Bld) [Relative time] 1.0 {INR} [facility] Ketones Test strip Ql (U)Ord ered By: Anya Basilio on 12-20-2024 Ketones Ql (U) Negative Negative [facility] L499.0042on 12-20-2024 Trop T Delta 0 Normal [facility] Comment on above: Result Comment: If c linical suspicion for ACS is high, suggest getting a third troponin. Otherwise, stress test or CTCA. Performed By: #### L 501.9520, L506.0400, L501.5200, L501.97521, L500.2500 #### [facility] [address] [place], [place], [address] Trop T High Sen 19 ng/L Normal <=22 [facility] Comment on above: Performed By: #### L 501.9520, L506.0400, L501.5200, L501.28772, L500.2500 #### [facility] [address] [place], [address] L499.0043on 12-20-2024 Trop T Delta 1 Normal [facility] Comment on above: Result Comment: Down stream testing and, if negative, consider other etiologies for elevated troponin. Performed By: #### L 499.0043 #### [facility] [address] [place], [address] Trop T High Sen 18 ng/L Normal <=22 [facility] Comment on above: Performed By: #### L 499.0043 #### [facility] [address] [place], [address] L501.4021on 12-20-2024 Trop T High Sen 19 ng/L Normal <=22 [facility] Comment on above: Performed By: #### L 501.9520, L506.0400, L501.5200, L501.51299, L500.2500 #### [facility] [address] [place], [address] MCV (mean corpuscular volume ) determinationOrdered By: Anya Basilio on 12-20-2024 MCV (RBC) [Entitic vol] 87.0 fL 80-94 [facility] Mean corpuscular hemoglobin (MCH) determinationOrdered By: Anya Basilio on 12-20-2024 MCH (RBC) [Entitic mass] 30.4 pg 27.0-32.0 [facility] Mean corpuscular hemoglobin concentration (MCHC) determinationOrdered By: Anya Basilio on 12-20-2024 MCHC (RBC) [Mass/Vol] 34.9 g/dL 32-[address] [facility] Mean platelet volume determi nationOrdered By: Anya Basilio on 12-20-2024 Platelet mean volume (Bld) [Entitic vol] 10.4 fL 6.2-12.0 [facility] Microscopic analysis of urin e for red blood cells (RBC)Ordered By: Anya Basilio on 12-20-2024 Microscopic analysis of urine for red blood cells (RBC) 0 SEEN /hpf 0-5 [facility] Urine RBC 0 SEEN /hpf 0-5 [facility] Mucus LM Ql (Urine sed)Order ed By: Anya Basilio on 12-20-2024 Mucus Ql (Urine sed) 0 SEEN /hpf [facility] Nitrite Test strip Ql (U)Ord ered By: Anya Basilio on 12-20-2024 Nitrite Ql (U) Negative Negative [facility] No Panel InformationOrdered By: Anya Basilio on 12-20-2024 Troponin T Hi Sensitivity 4Hr Delta 1 [facility] Comment on above: Downstream testing a nd, if negative, consider other etiologies for elevated troponin. Troponin T Hi Sensitivity 2Hr Delta 0 [facility] Comment on above: If clinical suspicio n for ACS is high, suggest getting a third troponin. Otherwise, stress test or CTCA. Troponin T High Sensitivity 19 ng/L <22 [facility] Platelet countOrdered By: Jose Basilio on 12-20-2024 Platelets (Bld) [#/Vol] 279 10*3/uL 150-450 [facility] Protein Test strip Ql (U)Ord ered By: Anya Basilio on 12-20-2024 Protein Ql (U) 30 mg/dl High Negative [facility] Prothrombin Time w/INRon INR Coag (PPP) [Relative time] 1.0 {INR} Normal [facility] Comment on above: Performed By: #### L 501.9520, L506.0400, L501.5200, L501.23381, L500.2500 #### [facility] [address] [place], [address] PT Coag (PPP) [Time] 13.8 s Normal 11.7-14.9 [facility] Comment on above: Performed By: #### L 501.9520, L506.0400, L501.5200, L501.57977, L500.2500 #### [facility] [address] [place], [address] Prothrombin timeOrdered By: Anya Basilio on 12-20-2024 PT Coag (PPP) [Time] 13.8 s 11.7-14.9 [facility] RBC Auto (Bld) [#/Vol]Ordere d By: Anya Basilio on 12-20-2024 RBC (Bld) [#/Vol] 4.77 10*6/uL 4.6-6.2 [facility] Serum creatinine measurement (mass/volume)Ordered By: Anya Basilio on 12-20-2024 Creatinine [Mass/Vol] 1.82 mg/dL High 0.70-1.[address] [facility] Serum glucose measurement (m ass/volume)Ordered By: Anya Basilio on 12-20-2024 Glucose [Mass/Vol] 139 mg/dL High 70-99 [facility] Serum or plasma anion gap de termination (moles/volume)Ordered By: Anya Basilio on 12-20-2024 Anion gap [Moles/Vol] 15 mmol/L 5-[address] [facility] Serum or plasma calcium tasha urement (mass/volume)Ordered By: Anya Basilio on 12-20-2024 Calcium [Mass/Vol] 9.4 mg/dL 7.6-11.0 [facility] Serum or plasma potassium me asurementOrdered By: Anya Basilio on 12-20-2024 Potassium [Moles/Vol] 3.8 mmol/L 3.3-5.[address] [facility] Serum or plasma sodium measu rement (moles/volume)Ordered By: Anya Basilio on 12-20-2024 Sodium [Moles/Vol] 137 mmol/L 133-145 [facility] Serum or plasma urea nitroge n measurement (mass/volume)Ordered By: Anya Basilio on 12-20-2024 Urea nitrogen [Mass/Vol] 31 mg/dL High 4-19 [facility] Squamous epithelial cells de tection in urine sediment by light microscopyOrdered By: Anya Basilio on 12-20-2024 Epithelial cells.squamous LM Ql (Urine sed) 0 SEEN /hpf 0-5 [facility] Troponin T.cardiac High sens itivity method [Mass/Vol]Ordered By: Anya Basilio on 12-20-2024 Troponin T High Sensitivity 4 Hour 18 ng/L <22 [facility] Troponin T High Sensitivity 2 Hour 19 ng/L <22 [facility] Troponin T.cardiac [Mass/vol ume] in Serum or Plasma by High sensitivity methodOrdered By: Anya Basilio on 12-20-2024 Troponin T.cardiac High sensitivity method [Mass/Vol] 18 ng/L <22 [facility] Troponin T.cardiac High sensitivity method [Mass/Vol] 19 ng/L <22 [facility] Urinalysis, Completeon 12-20 RBC 0 SEEN Normal 0-5 [facility] Comment on above: Order Comment: CLEAN CATCH Performed By: #### L 501.9520, L506.0400, L501.5200, L501.03926, L500.2500 #### [facility] [address] [place], [address] BACTERIA 0 SEEN Normal None Seen [facility] Comment on above: Order Comment: CLEAN CATCH Performed By: #### L 501.9520, L506.0400, L501.5200, L501.82041, L500.2500 #### [facility] [address] [place], [address] EPI,SQUAMOUS 0 SEEN Normal [address] [place] [address] Comment on above: Order Comment: CLEAN CATCH Performed By: #### L 501.9520, L506.0400, L501.5200, L501.59230, L500.2500 #### [facility] [address] [place], [address] Mucus Ql (Urine sed) 0 SEEN Normal [facility] Comment on above: Order Comment: CLEAN CATCH Performed By: #### L 501.9520, L506.0400, L501.5200, L501.03527, L500.2500 #### [facility] [address] [place], [address] WBC 0 SEEN Normal 0-5 [facility] Comment on above: Order Comment: CLEAN CATCH Performed By: #### L 501.9520, L506.0400, L501.5200, L501.48113, L500.2500 #### [facility] [place], [address] Urine blood detectionOrdered By: Anya Basilio on 12-20-2024 Urine Occult Blood Negative Negative [facility] Urine clarityOrdered By: Jayde Basilio on 12-20-2024 Clarity (U) Clear Clear [facility] Urine color determinationOrd ered By: Anya Basilio on 12-20-2024 Color (U) Yellow Yellow [facility] Urine glucose detectionOrder ed By: Anya Basilio on 12-20-2024 Glucose Ql (U) Normal mg/dl Normal [facility] Urine leukocyte esterase det ection by dipstickOrdered By: Anya Basilio on 12-20-2024 Leukocyte esterase Test strip Ql (U) Negative Negative [facility] Urine pHOrdered By: Anya machuca on 12-20-2024 pH (U) 6.5 [pH] 5.0 - 8.0 [facility] Urine sediment bacteria coun t by microscopy (number/high power field)Ordered By: Anya Basilio on 12-20-2024 Bacteria LM.HPF (Urine sed) [#/Area] 0 /[HPF] None Seen [facility] Urine specific gravity measu rementOrdered By: Anya Basilio on 12-20-2024 Specific gravity (U) [Rel density] 1.010 1.002-1.030 [facility] Urine urobilinogen measureme ntOrdered By: Anya Basilio on 12-20-2024 Urobilinogen Ql (U) 1 mg/dl High Normal [facility] Urobilinogen Ql (U)Ordered B y: Anya Basilio on 12-20-2024 Urobilinogen (U) [Mass/Vol] 1 mg/dL High Normal [facility] White blood cell (WBC) count Ordered By: Anya Basilio on 12-20-2024 WBC (Bld) [#/Vol] 12.3 10*3/uL High 4.4-11.0 [facility] White blood cell countOrdere d By: Anya Basilio on 12-20-2024 Urine WBC 0 SEEN /hpf 0-5 [facility] White blood cell count 0 SEEN /hpf 0-5 [facility] .Auto Diffon 12-15-2024 Basophil, Absolute 0.1 10 3/mcL Normal 0.0-0.3 [facility] Comment on above: Performed By: #### G FR, CBC, ANEU, BMP, PRO, ABSGEL, ABOGEL, ADIFF ####[address] [address] Basophils/100 WBC (Bld) 0.9 % Normal 0.0-2.5 [facility] Comment on above: Performed By: #### G FR, CBC, ANEU, BMP, PRO, ABSGEL, ABOGEL, ADIFF ####[address] [address] Eosinophil, Absolute 0.4 10 3/mcL Normal 0.0-0.7 [facility] Comment on above: Performed By: #### G FR, CBC, ANEU, BMP, PRO, ABSGEL, ABOGEL, ADIFF ####[address] [address] Eosinophils/100 WBC (Bld) 4.0 % Normal 0.0-6.0 [facility] Comment on above: Performed By: #### G FR, CBC, ANEU, BMP, PRO, ABSGEL, ABOGEL, ADIFF ####[address] [address] Lymphocyte, Absolute 2.1 10 3/mcL Normal 0.9-4.3 [facility] Comment on above: Performed By: #### G FR, CBC, ANEU, BMP, PRO, ABSGEL, ABOGEL, ADIFF ####[address] [address] Lymphocytes/100 WBC (Bld) 24.2 % Normal 20.0-40.0 [facility] Comment on above: Performed By: #### G FR, CBC, ANEU, BMP, PRO, ABSGEL, ABOGEL, ADIFF ####[address] [address] Monocyte, Absolute 0.8 10 3/mcL Normal 0.1-1.4 [facility] Comment on above: Performed By: #### G FR, CBC, ANEU, BMP, PRO, ABSGEL, ABOGEL, ADIFF ####[address] [address] Monocytes/100 WBC (Bld) 9.2 % Normal 2.0-13.0 [facility] Comment on above: Performed By: #### G FR, CBC, ANEU, BMP, PRO, ABSGEL, ABOGEL, ADIFF ####[address] [address] Neutrophils/100 WBC (Bld) 61.7 % Normal 50.0-75.0 [facility] Comment on above: Performed By: #### G FR, CBC, ANEU, BMP, PRO, ABSGEL, ABOGEL, ADIFF ####[address] [address] .GFRon 12-15-2024 Estimated Glomerular Filtration Rate 38 ml/min/1.73sqm Normal [facility] Comment on above: Result Comment: [...] CBC, ANEU, BMP, PRO, ABSGEL, ABOGEL, ADIFF ####[address] [address] .NEUABSon 12-15-2024 Neutrophil, Absolute 5.4 10 3/mcL Normal 2.3-8.1 [facility] Comment on above: Performed By: #### G FR, CBC, ANEU, BMP, PRO, ABSGEL, ABOGEL, ADIFF ####[address] [address] ABO/Rh (Gel)on 12-15-2024 ABO/Rh Interp Positive Invalid Interpretation Code [facility] Comment on above: Performed By: #### G FR, CBC, ANEU, BMP, PRO, ABSGEL, ABOGEL, ADIFF ####[address] [address] ABS (Gel)on 12-15-2024 ABSC Interp (Gel) Negative Normal [facility] Comment on above: Performed By: #### G FR, CBC, ANEU, BMP, PRO, ABSGEL, ABOGEL, ADIFF ####[address] [address] BMPon 12-15-2024 BUN/Creatinine Ratio 15.7 ratio Normal 10.0-22.0 [facility] Comment on above: Performed By: #### G FR, CBC, ANEU, BMP, PRO, ABSGEL, ABOGEL, ADIFF ####[address] [address] Calcium [Mass/Vol] 9.7 mg/dL Normal 8.7-10.4 [facility] Comment on above: Performed By: #### G FR, CBC, ANEU, BMP, PRO, ABSGEL, ABOGEL, ADIFF ####[address] [address] Chloride [Moles/Vol] 105 mmol/L Normal 98-110 [facility] Comment on above: Performed By: #### G FR, CBC, ANEU, BMP, PRO, ABSGEL, ABOGEL, ADIFF ####[address] [address] CO2 [Moles/Vol] 30 mmol/L Normal 22-32 [facility] Comment on above: Performed By: #### G FR, CBC, ANEU, BMP, PRO, ABSGEL, ABOGEL, ADIFF ####[address] [address] Creatinine [Mass/Vol] 1.78 mg/dL High 0.60-1.40 [facility] Comment on above: Result Comment: Test ing performed on Immunetics analyzer using enzymatic creatinine methodology. Performed By: #### G FR, CBC, ANEU, BMP, PRO, ABSGEL, ABOGEL, ADIFF ####[place] [id number] Electrolyte Balance 5.0 mEq/L Normal 4.0-15.0 [facility] Comment on above: Performed By: #### G FR, CBC, ANEU, BMP, PRO, ABSGEL, ABOGEL, ADIFF ####[place] [id number] Glucose [Mass/Vol] 88 mg/dL Normal 82-115 [facility] Comment on above: Performed By: #### G FR, CBC, ANEU, BMP, PRO, ABSGEL, ABOGEL, ADIFF ####[place] [id number] Potassium [Moles/Vol] 4.4 mmol/L Normal 3.5-5.0 [facility] Comment on above: Performed By: #### G FR, CBC, ANEU, BMP, PRO, ABSGEL, ABOGEL, ADIFF ####[place] [id number] Sodium [Moles/Vol] 140 mmol/L Normal 136-145 [facility] Comment on above: Performed By: #### G FR, CBC, ANEU, BMP, PRO, ABSGEL, ABOGEL, ADIFF ####[place] [id number] Urea nitrogen [Mass/Vol] 28.0 mg/dL High 8.0-22.0 [facility] Comment on above: Performed By: #### G FR, CBC, ANEU, BMP, PRO, ABSGEL, ABOGEL, ADIFF ####[address] [address] CBCon 12-15-2024 Erythrocyte distribution width (RBC) [Ratio] 14.0 % Normal 11.5-15.5 [facility] Comment on above: Performed By: #### G FR, CBC, ANEU, BMP, PRO, ABSGEL, ABOGEL, ADIFF ####[place] [phone] Hematocrit (Bld) [Volume fraction] 46.0 % Normal 40.0-52.0 [facility] Comment on above: Performed By: #### G FR, CBC, ANEU, BMP, PRO, ABSGEL, ABOGEL, ADIFF ####[place] [address] Hgb 15.6 G/dL Normal 13.0-17.5 [facility] Comment on above: Performed By: #### G FR, CBC, ANEU, BMP, PRO, ABSGEL, ABOGEL, ADIFF ####[place] [address] MCH (RBC) [Entitic mass] 30.2 pg Normal 27.0-33.0 [facility] Comment on above: Performed By: #### G FR, CBC, ANEU, BMP, PRO, ABSGEL, ABOGEL, ADIFF ####[place] [address] MCHC 33.9 G/dL Normal 32.0-36.0 [facility] Comment on above: Performed By: #### G FR, CBC, ANEU, BMP, PRO, ABSGEL, ABOGEL, ADIFF ####[place] [address] MCV (RBC) [Entitic vol] 89.0 fL Normal 81.0-100.0 [facility] Comment on above: Performed By: #### G FR, CBC, ANEU, BMP, PRO, ABSGEL, ABOGEL, ADIFF ####[place] [address] Platelet 216 10 3/mcL Normal 150-450 [facility] Comment on above: Performed By: #### G FR, CBC, ANEU, BMP, PRO, ABSGEL, ABOGEL, ADIFF ####[place] [address] Platelet mean volume (Bld) [Entitic vol] 8.4 fL Normal 6.4-10.5 [facility] Comment on above: Performed By: #### G FR, CBC, ANEU, BMP, PRO, ABSGEL, ABOGEL, ADIFF ####[place] [address] RBC 5.18 10 6/mcL Normal 4.50-6.00 [facility] Comment on above: Performed By: #### G FR, CBC, ANEU, BMP, PRO, ABSGEL, ABOGEL, ADIFF ####[facility] [place] [address] WBC 8.8 10 3/mcL Normal 4.5-10.8 [facility] Comment on above: Performed By: #### G FR, CBC, ANEU, BMP, PRO, ABSGEL, ABOGEL, ADIFF ####[facility] [place] [address] LABORATORYOrdered By: Nat Majano on 12-15-2024 ABO [...] above: Interpretive Data: T esting performed on Immunetics analyzer using enzymatic creatinine methodology. Electrolyte Balance [...] International Ratio 1.0 ratio Invalid Interpretation Code [facility] Comment on above: Interpretive Data: Shelbi clark [employer] (CHEST, 1991, 102:312S-25S) [...] Coag (PPP) [Relative time] 1.0 {INR} Normal [facility] Comment on above: Result Comment: [employer] (CHEST, 1991, 102:312S-25S) recommended therapeutic range for oral anticoagulant therapy is: LOW RISK: Prophylaxis of venous thrombosis INR: 2.0-3.0 Treatment of pulmonary embolism 2.0-3.0 Prevention of systemic embolism 2.0-3.0 HIGH RISK: Mechanical prosthetic valves 2.5-3.5 Performed By: #### G FR, CBC, ANEU, BMP, PRO, ABSGEL, ABOGEL, ADIFF ####[place] [address] [place] [address] PT Coag (PPP) [Time] 11.8 s Normal 9.0-14.4 [facility] Comment on above: Result Comment: Effe ctive 05/05/08, Protime results may be affected by some antibiotics (i.e. Ciprofloxacin, Azithromycin, Bactrim) which may potentiate the action of oral anticoagulants, with further increases in Protime/INR. Performed By: #### G FR, CBC, ANEU, BMP, PRO, ABSGEL, ABOGEL, ADIFF ####[place] [address] [place] [address] 12 Lead EKGon 10-06-[address] [facility] [address] [place] [address] 12 Lead EKG 10/06/24 0808 MR#: [id number] Acct: [id number] Name: MAGUI TORRES Rep #: [id number] : 1940 84 From: Nixon Restrepo MD [...] ECG Confirmed by NIXON RESTREPO MD ([id number]), features editor MYRTLE MCKEE ([id number]) on 10/08/2024 6:31:07 AM Referred By: Confirmed By: NIXON RESTREPO MD 10/08/24 0631 Date Nixon Restrepo MD CC: Dr. Brayden Balderrama MD; Dr. Samm Santos DO Signed Normal [facility] Abdomen/Pelvis without Conto n 10-06-2024 Abdomen/Pelvis without Cont [facility] [address] [place], [place] [id number] Abdomen/Pelvis without Cont MR#: [id number] Acct: [id number] Name: MAGUI TORRES Rep #: [id number] : 1940 M 84 From: Nahun blackburn MD PCP: Dr. Brayden Balderrama MD Status: REG ER Study: Abdomen/Pelvis without Cont Date of Exam: 09/21 04/14 Exam# [id number] Ordering Dr: Samm Santos DO [id number] STUDY: CT ABDOMEN AND PELVIS WITHOUT CONTRAST [...] Brayden Balderrama MD; Dr. Samm Santos DO Serging Machine Operator: Signed Normal [facility] Albumin to globulin ratioOrd ered By: Samm Santos on 10-06-2024 Albumin/Globulin [Mass ratio] 0.8 {ratio} Low 0.9-2.4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 may falsely depress this assay.Serum Triglycerides Reference Interval Normal <150 mg/dL Borderline high 150 - 199 mg/dL High 200 - 499 mg/dL Very High > or = 500 mg/dL Laboratory - Chemistry and C hemistry - challengeOrdered By: Brayden Balderrama on 09-06-2023 CO2 [Moles/Vol] 26.0 mmol/L 21.0-32.0 [facility] Free T4 [Mass/Vol] 1.06 ng/dL 0.76-1.46 [facility] Magnesium [Mass/Vol] 2.6 mg/dL 1.6-2.6 [facility] Urea nitrogen/Creatinine [Mass ratio] 16.0 mg/mg 10-20 [facility] No Panel InformationOrdered By: Brayden Balderrama on 09-06-2023 Estimated GFR (MDRD) Amer 45 mL/min >60 [facility] Comment on above: GFR Calc Estimated GFR (MDRD) Non-Af Amer 37 mL/min >60 [facility] Comment on above: Non- GFR Calc Free Triiodothyronine (T3) pg/dL 2.4 pg/mL 2.18-3.98 [facility] Thyroid Stimulating Hormone (TSH) 2.72 uIU/mL 0.358-3.74 [facility] Serum or plasma calcium tasha urement (mass/volume)Ordered By: Brayden Balderrama on 09-06-2023 Calcium [Mass/Vol] 8.7 mg/dL 8.5-10.1 [facility] Serum or plasma cholesterol in HDL measurement (mass/volume)Ordered By: Brayden Balderrama on 09-06-2023 Cholesterol in HDL [Mass/Vol] 36 mg/dL >40 [facility] Comment on above: The drugs N-Acetylcy steine and Metamizole may falsely depress this assay. Reference Range HDL <40 mg/dL Low HDL Cholesterol HDL >or= 60 mg/dL High HDL Cholesterol Serum or plasma cholesterol in VLDL measurement (mass/volume)Ordered By: Brayden Balderrama on 09-06-2023 Cholesterol in VLDL [Mass/Vol] 26 mg/dL 5-40 [facility] Serum or plasma creatinine m easurement (mass/volume)Ordered By: Brayden Balderrama on 09-06-2023 Creatinine [Mass/Vol] 1.87 mg/dL 0.70-1.[address] [facility] Comment on above: The validity of the calculated GFR & GFRAA in patients over 70 years has not been determined. Clinical correlation is essential. Serum or plasma low density lipoprotein (LDL) cholesterol measurement (mass/volume)Ordered By: Brayden Balderrama on 09-06-2023 Cholesterol in LDL [Mass/Vol] 136 mg/dL 0-130 [facility] Serum or plasma urea nitroge n measurement (mass/volume)Ordered By: Brayden Balderrama on 09-06-2023 Urea nitrogen [Mass/Vol] 30 mg/dL 7-18 [facility] Thin prep Papanicolaou smear with manual screeningOrdered By: Brayden Balderrama on 09-06-2023 Thin prep Papanicolaou smear with manual screening 7 5-15 [facility] NM MYOCARDIAL SPECT STRESS/R ESTon 08-10-2023 NM [...] Date: 08/10/2023 4:46:29 PM Ordering Provider:Ashley Diez [facility] Laboratory - Chemistry and C hemistry - challengeOrdered By: Brayden Balderrama on 03-01-2023 Free T4 [Mass/Vol] 1.65 ng/dL 0.76-1.46 [facility] No Panel InformationOrdered By: Brayden Balderrama on 03-01-2023 Free Triiodothyronine (T3) pg/dL 1.5 pg/mL 2.18-3.98 [facility] Thyroid Stimulating Hormone (TSH) 2.47 uIU/mL 0.358-3.74 [facility] Basophil percentageOrdered B y: Dr. Santos on 02-18-2023 Basophil percentage 0-5 SEEN /hpf 0-5 [facility] Bilirubin Test strip Ql (U)O rdered By: Dr. Santos on 02-18-2023 Bilirubin Ql (U) Negative Negative [facility] Hyaline casts LM.LPF (Urine sed) [#/Area]Ordered By: Dr. Santos on 02-18-2023 Hyaline casts (Urine sed) [#/Area] 0 /[LPF] 0-5 [facility] Ketones Test strip Ql (U)Ord ered By: Dr. Santos on 02-18-2023 Ketones Ql (U) 50 mg/dl Negative [facility] Mucus LM Ql (Urine sed)Order ed By: Dr. Santos on 02-18-2023 Mucus Ql (Urine sed) 1+ /hpf [facility] Nitrite Test strip Ql (U)Ord ered By: Dr. Santos on 02-18-2023 Nitrite Ql (U) Negative Negative [facility] No Panel InformationOrdered By: Dr. Santos on 02-18-2023 Troponin I High Sensitivity 30 pg/mL 3.0-78.0 [facility] Comment on above: Please Note: New Antionette t Units and Gender Specific Reference Ranges. For more information see Policy Stat Procedure [place] High Sensitivity Troponin (TNIH) and attachments. Protein Test strip Ql (U)Ord ered By: Dr. Santos on 02-18-2023 Protein Ql (U) 100 mg/dl Negative [facility] Squamous epithelial cells de tection in urine sediment by light microscopyOrdered By: Dr. Santos on 02-18-2023 Epithelial cells.squamous LM Ql (Urine sed) 0-5 SEEN /hpf 0-5 [facility] Urine blood detectionOrdered By: Dr. Santos on 02-18-2023 RBC Ql (U) 25 /ul Negative [facility] RBC Ql (U) 0-5 SEEN /hpf 0-5 [facility] Urine clarityOrdered By: Dr. Santos on 02-18-2023 Clarity (U) Clear Clear [facility] Urine color determinationOrd ered By: Dr. Santos on 02-18-2023 Color (U) Yellow Yellow [facility] Urine glucose detectionOrder ed By: Dr. Santos on 02-18-2023 Glucose Ql (U) Normal mg/dl Normal [facility] Urine leukocyte esterase det ection by dipstickOrdered By: Dr. Santos on 02-18-2023 Leukocyte esterase Test strip Ql (U) 25 /ul Negative [facility] Urine pHOrdered By: Dr. Mina cruz on 02-18-2023 pH (U) 5.0 [pH] 5.0 - 8.0 [facility] Urine sediment bacteria coun t by microscopy (number/high power field)Ordered By: Dr. Santos on 02-18-2023 Bacteria LM.HPF (Urine sed) [#/Area] 2 /[HPF] None Seen [facility] Urine specific gravity measu rementOrdered By: Dr. Santos on 02-18-2023 Specific gravity (U) [Rel density] 1.020 1.002-1.030 [facility] Urobilinogen Auto test strip Ql (U)Ordered By: Dr. Santos on 02-18-2023 Urobilinogen Ql (U) 4 mg/dl Normal [facility] Absolute lymphocyte countOrd ered By: Dr. Santos on 02-17-2023 Lymphocytes Auto (Unsp spec) [#/Vol] 1.12 10*3/uL 0.83-4.51 [facility] Basophil percentageOrdered B y: Dr. Santos on 02-17-2023 Basophils/100 WBC (Bld) 0.7 % 0-1 [facility] Chloride [Moles/Vol] 105 mmol/L 98-107 [facility] Eosinophils/100 WBC (Bld) 0.2 % 0-5 [facility] Glucose [Mass/Vol] 119 mg/dL 74-106 [facility] Comment on above: Fasting Glucose resu lt from 100 to 125 mg/dL suggests IMPAIRED HOMEOSTASIS per A.D.A. criteria. Neutrophils (Bld) [#/Vol] 5.4 10*3/uL 2.0-7.7 [facility] Neutrophils/100 WBC (Bld) 67.7 % 47-70 [facility] Potassium [Moles/Vol] 3.3 mmol/L 3.5-5.[address] [facility] Sodium [Moles/Vol] 135 mmol/L 136-145 [facility] WBC (Bld) [#/Vol] 8.0 10*3/uL 4.4-11.0 [facility] Blood erythrocytes count (nu mber/volume)Ordered By: Dr. Santos on 02-17-2023 RBC (Bld) [#/Vol] 4.75 10*6/uL 4.6-6.2 [facility] Blood hemoglobin measurement (mass/volume)Ordered By: Dr. Santos on 02-17-2023 Hemoglobin (Bld) [Mass/Vol] 14.6 g/dL 13.0-16.5 [facility] Blood lymphocytes/100 leukoc ytesOrdered By: Dr. Santos on 02-17-2023 Lymphocytes/100 WBC (Bld) 13.9 % 19-41 [facility] Blood monocytes/100 leukocyt esOrdered By: Dr. Santos on 02-17-2023 Monocytes/100 WBC (Bld) 16.3 % 0-10 [facility] Blood platelet mean volumeOr dered By: Dr. Santos on 02-17-2023 Platelet mean volume (Bld) [Entitic vol] 10.1 fL 6.2-12.0 [facility] Determination of erythrocyte mean corpuscular volume (MCV)Ordered By: Dr. Santos on 02-17-2023 MCV (RBC) [Entitic vol] 87.8 fL 80-94 [facility] Hematocrit Auto (Bld) [Volum e fraction]Ordered By: Dr. Santos on 02-17-2023 Hematocrit (Bld) [Volume fraction] 41.7 % 40-54 [facility] Influenza virus A and B and SARS-CoV-2 (COVID-19) Ag panel - Upper respiratory specimOrdered By: Samm Santos on 02-17-2023 SARS-CoV-2 (COVID-19) RNA NAYLA+probe Ql (Resp) [facility] Influenza virus A and B and SARS-CoV-2 (COVID-19) Ag panel - Upper respiratory specimOrdered By: Dr. Santos on 02-17-2023 SARS-CoV-2 (COVID-19) RNA NAYLA+probe Ql (Resp) [facility] Laboratory - Chemistry and C hemistry - challengeOrdered By: Dr. Santos on 02-17-2023 CO2 [Moles/Vol] 25.0 mmol/L 21.0-32.0 [facility] Natriuretic peptide B (Bld) [Mass/Vol] 33.3 pg/mL 0-100 [facility] Urea nitrogen/Creatinine [Mass ratio] 18.2 mg/mg 10-20 [facility] Laboratory - Hematology and Cell countsOrdered By: Dr. Santos on 02-17-2023 Erythrocyte distribution width (RBC) [Entitic vol] 42.5 fL 35.1-43.9 [facility] Erythrocyte distribution width (RBC) [Ratio] 13.2 % 11.6-14.6 [facility] Immature granulocytes/100 WBC (Bld) 1.200 % 0.0-0.9 [facility] Comment on above: IG% - Immature Granu locytes (promyelocytes, myelocytes and metamyelocytes) > 1% indicates that a LEFT SHIFT is Present. MCH (RBC) [Entitic mass] 30.7 pg 27.0-32.0 [facility] Nucleated RBC/100 WBC (Bld) [Ratio] 0 % 0-5 [facility] MCHC Auto (RBC) [Mass/Vol]Or dered By: Dr. Santos on 02-17-2023 MCHC (RBC) [Mass/Vol] 35.0 g/dL 32-[address] [facility] No Panel InformationOrdered By: Dr. Santos on 02-17-2023 Estimated Creatinine Clearance Calc 37.62 ml/min [facility] Estimated GFR (MDRD) Amer 54 mL/min >60 [facility] Comment on above: GFR Calc Estimated GFR (MDRD) Non-Af Amer 45 mL/min >60 [facility] Comment on above: Non- GFR Calc Platelets bldOrdered By: Dr. Santos on 02-17-2023 Platelets (Bld) [#/Vol] 143 10*3/uL 150-450 [facility] Serum or plasma calcium tasha urement (mass/volume)Ordered By: Dr. Santos on 02-17-2023 Calcium [Mass/Vol] 8.3 mg/dL 8.5-10.1 [facility] Serum or plasma creatinine m easurement (mass/volume)Ordered By: Dr. Santos on 02-17-2023 Creatinine [Mass/Vol] 1.59 mg/dL 0.70-1.[address] [facility] Comment on above: The validity of the calculated GFR & GFRAA in patients over 70 years has not been determined. Clinical correlation is essential. Serum or plasma urea nitroge n measurement (mass/volume)Ordered By: Dr. Santos on 02-17-2023 Urea nitrogen [Mass/Vol] 29 mg/dL 7-18 [facility] Thin prep Papanicolaou smear with manual screeningOrdered By: Dr. Santos on 02-17-2023 Thin prep Papanicolaou smear with manual screening 5 5-15 [facility] Basophil percentageon 2021 Chloride [Moles/Vol] 105 mmol/L 98-107 [facility] Work Phone: Glucose [Mass/Vol] 88 mg/dL 74-106 [facility] Work Phone: Potassium [Moles/Vol] 4.4 mmol/L 3.5-5.[address] [facility] Work Phone: Comment on above: Slight Hemolysis, Re sult may be falsely increased. Sodium [Moles/Vol] 140 mmol/L 136-145 [facility] Work Phone: Laboratory - Chemistry and C hemistry - challengeon 10-04-2022 CO2 [Moles/Vol] 26.0 mmol/L 21.0-32.0 [facility] Work Phone: Urea nitrogen/Creatinine [Mass ratio] 13.9 mg/mg 10-20 [facility] Work Phone: No Panel Informationon 10-04 Estimated GFR (MDRD) Amer 57 mL/min >60 [facility] Work Phone: Comment on above: GFR Calc Estimated GFR (MDRD) Non-Af Amer 47 mL/min >60 [facility] Work Phone: Comment on above: Non- GFR Calc Thyroid Stimulating Hormone (TSH) 2.42 uIU/mL 0.358-3.74 [facility] Work Phone: Serum or plasma calcium tasha urement (mass/volume)on 10-04-2022 Calcium [Mass/Vol] 9.2 mg/dL 8.5-10.1 [facility] Work Phone: Serum or plasma creatinine m easurement (mass/volume)on 10-04-2022 Creatinine [Mass/Vol] 1.51 mg/dL 0.70-1.[address] [facility] Work Phone: Comment on above: The validity of the calculated GFR & GFRAA in patients over 70 years has not been determined. Clinical correlation is essential. Serum or plasma urea nitroge n measurement (mass/volume)on 10-04-2022 Urea nitrogen [Mass/Vol] 21 mg/dL 7-18 [facility] Work Phone: Thin prep Papanicolaou smear with manual screeningon 10-04-2022 Thin prep Papanicolaou smear with manual screening 9 5-15 [facility] Work Phone: Basophil percentageon 2021 Chloride [Moles/Vol] 105 mmol/L 98-107 [facility] Work Phone: Glucose [Mass/Vol] 111 mg/dL 74-106 [facility] Work Phone: Comment on above: Fasting Glucose resu lt from 100 to 125 mg/dL suggests IMPAIRED HOMEOSTASIS per A.D.A. criteria. Potassium [Moles/Vol] 4.2 mmol/L 3.5-5.[address] [facility] Work Phone: Sodium [Moles/Vol] 138 mmol/L 136-145 [facility] Work Phone: Laboratory - Chemistry and C hemistry - challengeon 05-22-2022 CO2 [Moles/Vol] 30.0 mmol/L 21.0-32.0 [facility] Work Phone: Urea nitrogen/Creatinine [Mass ratio] 21.6 mg/mg 10-20 [facility] Work Phone: No Panel Informationon 05-22 Estimated GFR (MDRD) Amer 50 mL/min >60 [facility] Work Phone: Comment on above: GFR Calc Estimated GFR (MDRD) Non-Af Amer 41 mL/min >60 [facility] Work Phone: Comment on above: Non- GFR Calc Serum or plasma calcium tasha urement (mass/volume)on 05-22-2022 Calcium [Mass/Vol] 9.8 mg/dL 8.5-10.1 [facility] Work Phone: [phone] Serum or plasma creatinine m easurement (mass/volume)on 05-22-2022 Creatinine [Mass/Vol] 1.71 mg/dL 0.70-1.[address] [facility] Work Phone: Comment on above: The validity of the calculated GFR & GFRAA in patients over 70 years has not been determined. Clinical correlation is essential. Serum or plasma urea nitroge n measurement (mass/volume)on 05-22-2022 Urea nitrogen [Mass/Vol] 37 mg/dL 7-18 [facility] Work Phone: [phone] Thin prep Papanicolaou smear with manual screeningon 05-22-2022 Thin prep Papanicolaou smear with manual screening 3 5-15 [facility] Work Phone: Basophil percentageon 2021 WBC (Bld) [#/Vol] 8.0 10*3/uL 4.4-11.0 [facility] Work Phone: Blood erythrocytes count (nu mber/volume)on 05-08-2022 RBC (Bld) [#/Vol] 4.94 10*6/uL 4.6-6.2 [facility] Work Phone: Blood hemoglobin measurement (mass/volume)on 05-08-2022 Hemoglobin (Bld) [Mass/Vol] 15.0 g/dL 13.0-16.5 [facility] Work Phone: Blood platelet mean volumeon 05-08-2022 Platelet mean volume (Bld) [Entitic vol] 11.0 fL 6.2-12.0 [facility] Work Phone: Determination of erythrocyte mean corpuscular volume (MCV)on 05-08-2022 MCV (RBC) [Entitic vol] 89.7 fL 80-94 [facility] Work Phone: Hematocrit Auto (Bld) [Volum e fraction]on 05-08-2022 Hematocrit (Bld) [Volume fraction] 44.3 % 40-54 [facility] Work Phone: Laboratory - Hematology and Cell countson 05-08-2022 Erythrocyte distribution width (RBC) [Entitic vol] 46.2 fL 35.1-43.9 [facility] Work Phone: Erythrocyte distribution width (RBC) [Ratio] 14.1 % 11.6-14.6 [facility] Work Phone: [phone] MCH (RBC) [Entitic mass] 30.4 pg 27.0-32.0 [facility] Work Phone: [phone] MCHC Auto (RBC) [Mass/Vol]on 05-08-2022 MCHC (RBC) [Mass/Vol] 33.9 g/dL 32-[address] [facility] Work Phone: Platelets bldon 05-08-2022 Platelets (Bld) [#/Vol] 252 10*3/uL 150-450 [facility] Work Phone: Basophil percentageon 2021 Chloride [Moles/Vol] 109 mmol/L 98-107 [facility] Work Phone: Cholesterol [Mass/Vol] 190 mg/dL <200 [facility] Work Phone: [phone] Comment on above: <200 mg/dL Desirable 200-240 mg/dL Borderline >240 mg/dL High Risk Glucose [Mass/Vol] 90 mg/dL 74-106 [facility] Work Phone: [phone] Potassium [Moles/Vol] 3.8 mmol/L 3.5-5.[address] [facility] Work Phone: [phone] Sodium [Moles/Vol] 143 mmol/L 136-145 [facility] Work Phone: [phone] Triglyceride [Mass/Vol] 93 mg/dL <199 [facility] Work Phone: [phone] Comment on above: The drugs N-Acetylcy steine and Metamizole may falsely depress this assay.Serum Triglycerides Reference Interval Normal <150 mg/dL Borderline high 150 - 199 mg/dL High 200 - 499 mg/dL Very High > or = 500 mg/dL Laboratory - Chemistry and C hemistry - challengeon 04-04-2022 CO2 [Moles/Vol] 29.0 mmol/L 21.0-32.0 [facility] Work Phone: Free T4 [Mass/Vol] 1.14 ng/dL 0.76-1.46 [facility] Work Phone: Urea nitrogen/Creatinine [Mass ratio] 15.0 mg/mg 10-20 [facility] Work Phone: No Panel Informationon 04-04 Estimated GFR (MDRD) Amer 59 mL/min >60 [facility] Work Phone: [phone] Comment on above: GFR Calc Estimated GFR (MDRD) Non-Af Amer 49 mL/min >60 [facility] Work Phone: Comment on above: Non- GFR Calc Free Triiodothyronine (T3) pg/dL 2.7 pg/mL 2.18-3.98 [facility] Work Phone: Thyroid Stimulating Hormone (TSH) 3.18 uIU/mL 0.358-3.74 [facility] Work Phone: Serum or plasma calcium tasha urement (mass/volume)on 04-04-2022 Calcium [Mass/Vol] 9.3 mg/dL 8.5-10.1 [facility] Work Phone: Serum or plasma cholesterol in HDL measurement (mass/volume)on 04-04-2022 Cholesterol in HDL [Mass/Vol] 40 mg/dL >40 [facility] Work Phone: Comment on above: The drugs N-Acetylcy steine and Metamizole may falsely depress this assay. Reference Range HDL <40 mg/dL Low HDL Cholesterol HDL >or= 60 mg/dL High HDL Cholesterol Serum or plasma cholesterol in VLDL measurement (mass/volume)on 04-04-2022 Cholesterol in VLDL [Mass/Vol] 19 mg/dL 5-40 [facility] Work Phone: Serum or plasma creatinine m easurement (mass/volume)on 04-04-2022 Creatinine [Mass/Vol] 1.47 mg/dL 0.70-1.[address] [facility] Work Phone: Comment on above: The validity of the calculated GFR & GFRAA in patients over 70 years has not been determined. Clinical correlation is essential. Serum or plasma low density lipoprotein (LDL) cholesterol measurement (mass/volume)on 04-04-2022 Cholesterol in LDL [Mass/Vol] 131 mg/dL 0-130 [facility] Work Phone: Serum or plasma urea nitroge n measurement (mass/volume)on 04-04-2022 Urea nitrogen [Mass/Vol] 22 mg/dL 7-18 [facility] Work Phone: Thin prep Papanicolaou smear with manual screeningon 04-04-2022 Thin prep Papanicolaou smear with manual screening 5 5-15 [facility] Work Phone: Basophil percentageon 2021 Chloride [Moles/Vol] 104 mmol/L 98-107 [facility] Work Phone: Glucose [Mass/Vol] 94 mg/dL 74-106 [facility] Work Phone: Potassium [Moles/Vol] 4.3 mmol/L 3.5-5.[address] [facility] Work Phone: Sodium [Moles/Vol] 137 mmol/L 136-145 [facility] Work Phone: Laboratory - Chemistry and C hemistry - challengeon 12-08-2021 CO2 [Moles/Vol] 28.0 mmol/L 21.0-32.0 [facility] Work Phone: Urea nitrogen/Creatinine [Mass ratio] 14.4 mg/mg 10-20 [facility] Work Phone: No Panel Informationon 12-08 Estimated GFR (MDRD) Amer 67 mL/min >60 [facility] Work Phone: Comment on above: GFR Calc Estimated GFR (MDRD) Non-Af Amer 56 mL/min >60 [facility] Work Phone: Comment on above: Non- GFR Calc Serum or plasma calcium tasha urement (mass/volume)on 12-08-2021 Calcium [Mass/Vol] 9.7 mg/dL 8.5-10.1 [facility] Work Phone: Serum or plasma creatinine m easurement (mass/volume)on 12-08-2021 Creatinine [Mass/Vol] 1.32 mg/dL 0.70-1.[address] [facility] Work Phone: Comment on above: The validity of the calculated GFR & GFRAA in patients over 70 years has not been determined. Clinical correlation is essential. Serum or plasma urea nitroge n measurement (mass/volume)on 12-08-2021 Urea nitrogen [Mass/Vol] 19 mg/dL 7-18 [facility] Work Phone: Thin prep Papanicolaou smear with manual screeningon 12-08-2021 Thin prep Papanicolaou smear with manual screening 5 5-15 [facility] Work Phone: Office Visiton 08-07-2017 Documentation of current medications (procedure) Done Invalid Interpretation Code [facility] [employer] Work Phone: [phone] Fall risk assessment No Invalid Interpretation Code [facility] Work Phone: [phone] Lab Report: Basic Metabolic Profile (BMP)on 08-01-2017 Anion gap 7 mmol/L Invalid Interpretation Code 5-15 [facility] Work Phone: [phone] Anion gap 4 molar conc 7 Invalid Interpretation Code -15 [facility] Work Phone: [phone] BUN/Creatinine Ratio 14.6 RATIO Invalid Interpretation Code 10-20 [facility] Work Phone: [phone] Calcium 9.0 mg/dL Invalid Interpretation Code 8.5-10.1 [facility] Work Phone: [phone] Chloride 103 mmol/L Invalid Interpretation Code 98-107 [facility] Work Phone: [phone] CO2 32.0 mmol/L Invalid Interpretation Code 21.0-32.0 [facility] Work Phone: [phone] CO2 ppres (BldV) 32.0 mmol/L Invalid Interpretation Code 21.0-32.0 [facility] Work Phone: [phone] Creatinine 1.44 mg/dL High 0.70-1.30 [facility] [employer] Work Phone: [phone] eGFR (non-black) 61 mL/min/{1.73_m2} Invalid Interpretation Code >60 [facility] [facility] Work Phone: [phone] eGFR (non-black) 51 mL/min/{1.73_m2} Low >60 [facility] [facility] Work Phone: [phone] EST GFR - AA 61 mL/min Invalid Interpretation Code >60 [facility] [employer] Work Phone: [phone] Glucose mass conc 95 mg/dL Invalid Interpretation Code 70-110 [facility] Work Phone: [phone] Potassium molar conc 4.1 mmol/L Invalid Interpretation Code 3.5-5.1 [facility] [facility] Work Phone: [phone] Sodium 142 mmol/L Invalid Interpretation Code 136-145 [facility] [facility] Work Phone: [phone] Urea nitrogen 21 mg/dL High 7-18 [facility] Work Phone: [phone] Lab Report: Lipid Profileon 08-01-2017 Cholesterol 179 mg/dL Invalid Interpretation Code 200 [facility] [facility] Work Phone: [phone] HDL Cholesterol 42 mg/dL Invalid Interpretation Code [facility] [facility] Work Phone: [phone] LDL Cholesterol 114 mg/dL Invalid Interpretation Code 0-130 [facility] Work Phone: [phone] Triglyceride 114 mg/dL Invalid Interpretation Code [facility] Work Phone: [phone] very low density lipoproteins 23 mg/dL Invalid Interpretation Code 5-40 [facility] Work Phone: [phone] Lab Report: Liver Profileon 08-01-2017 Alanine aminotransferase (ALT) 23 U/L Invalid Interpretation Code 12-78 [facility] Work Phone: [phone] Albumin 3.5 g/dL Invalid Interpretation Code 3.4-5.0 [facility] Work Phone: [phone] Alkaline phosphatase (ALP) 70 U/L Invalid Interpretation Code 45-117 [facility] Work Phone: [phone] ALP enzyme act/vol (Bld) 70 U/L Invalid Interpretation Code 45-117 [facility] Work Phone: [phone] Aspartate aminotransferase (AST) 19 U/L Invalid Interpretation Code 15-37 [facility] Work Phone: [phone] Bilirubin (direct) 0.32 mg/dL High 0.00-0.30 [facility] Work Phone: [phone] Bilirubin (total) 1.50 mg/dL High 0.20-1.00 [facility] Work Phone: [phone] Globulin 3.6 g/dL High 2.3-3.5 [facility] Work Phone: [phone] Protein 7.1 g/dL Invalid Interpretation Code 6.4-8.2 [facility] Work Phone: [phone] Lab Report: CBC W/Diff, Auto matedon 07-21-2016 Absolute Neut 4.3 X10 3/UL Invalid Interpretation Code 2.0-7.7 [facility] Work Phone: [phone] Basophils/100 WBC Auto (Bld) 1.0 % Invalid Interpretation Code 0-1 [facility] Work Phone: [phone] Eosinophils/100 leukocytes 5.6 % High 0-5 [facility] Work Phone: [phone] Erythrocyte distribution width Auto Ratio (RBC) 14.2 % Invalid Interpretation Code 11.6-14.6 [facility] Work Phone: [phone] Erythrocyte distribution width Auto Ratio (RBC) 46.4 fL High 35.1-43.9 [facility] Work Phone: [phone] Erythrocytes (RBC) 4.56 10*6/uL Low 4.6-6.2 [facility] Work Phone: [phone] Hematocrit (HCT) 41.5 % Invalid Interpretation Code 40-54 [facility] Work Phone: [phone] Hemoglobin mass conc (Bld) 14.1 g/dL Invalid Interpretation Code 13.0-16.5 [facility] Work Phone: [phone] Immature granulocytes #/vol (Bld) 0.300 % Invalid Interpretation Code 0.0-0.9 [facility] Work Phone: [phone] Immature granulocytes/100 WBC (Bld) 0.300 % Invalid Interpretation Code 0.0-0.9 [facility] Work Phone: [phone] Lymphocytes 1.65 X10 3/UL Invalid Interpretation Code 0.83-4.51 [facility] Work Phone: [phone] Lymphocytes/100 leukocytes 23.1 % Invalid Interpretation Code 19-41 [facility] Work Phone: [phone] MCH 30.9 pg Invalid Interpretation Code 27.0-32.0 [facility] Work Phone: MCHC mass conc (RBC) 34.0 G/GL Invalid Interpretation Code 32-36 [facility] Work Phone: [phone] MCV 91.0 fL Invalid Interpretation Code 80-94 [facility] Work Phone: [phone] Monocytes/100 leukocytes 10.1 % High 0-10 [facility] Work Phone: [phone] Neutrophils Auto #/vol (Bld) 4.3 X10 3/UL Invalid Interpretation Code 2.0-7.7 [facility] Work Phone: [phone] Neutrophils/100 WBC Auto (Bld) 59.9 % Invalid Interpretation Code 47-70 [facility] Work Phone: [phone] Platelets 252 10*3/mm3 Invalid Interpretation Code 150-450 [facility] Work Phone: [phone] PMV by Devaughn 10.2 fL Invalid Interpretation Code 6.2-12.0 [facility] Work Phone: [phone] RDW SD 46.4 fL High 35.1-43.9 [facility] Work Phone: [phone] WBC (Leukocytes) 7.2 10*3/uL Invalid Interpretation Code 4.4-11.0 [facility] Work Phone: [phone] Office Visiton 07-18-2016 Documentation of current medications (procedure) Done Invalid Interpretation Code [employer] Phone: [phone] Protein mass conc Done Invalid Interpretation Code [facility] Work Phone: [phone] Lab Report: BMP11-14-2013 CO2 5 mmol/L Normal 5-15 [facility] Work Phone: [phone]) Lab Report: BTNP 4 BNP 17.4 pg/mL Normal 0-100 [facility] Work Phone: [phone]) Lab Report: MG11-14-2013 Magnesium 1.9 mg/dL Normal 1.8-2.4 [facility] Work Phone: [phone] Lab Report: TSH11-14-2013 Thyroid stimulating hormone (TSH) 2.75 u[iU]/mL Normal 0.358-3.74 [facility] Work Phone: [phone] EKG Report: [facility] ECG Obse rvationson 02-16-2012 BUN (urea nitrogen) Sinus Bradycardia -Right bundle branch block . ABNORMAL Invalid Interpretation Code [facility] Work Phone: [phone] EKG QRS axis 12 deg Invalid Interpretation Code [facility] Work Phone: [phone] P Ione 65 deg Invalid Interpretation Code [facility] Work Phone: [phone] TX Interval 152 ms Invalid Interpretation Code [facility] Work Phone: [phone] Pulse (Heart Rate) 53 /min Invalid Interpretation Code [facility] Work Phone: [phone] Pulse (Heart Rate) 439 ms Invalid Interpretation Code [facility] Work Phone: [phone] QRS Duration 146 ms Invalid Interpretation Code [facility] Work Phone: [phone] QT Interval new path ms Invalid Interpretation Code [facility] Work Phone: [phone] T Ione 31 deg Invalid Interpretation Code [facility] Work Phone: [phone] Office Visiton 02-16-2012 Tobacco smoking status NHIS former smoker Invalid Interpretation Code [facility] Work Phone: [phone] Tobacco use CPHS former smoker Invalid Interpretation Code [facility] Work Phone: [phone] Vital Signs Date Time Vital Sign Value Performing Clinician Facility 01-12-2025 19:00-0400 Diastolic blood pressure 77 mm[Hg] Dr. Brayden Balderrama MD Work Phone: [facility] 01-12-2025 19:00-0400 Heart rate 68 /min Dr. Brayden Balderrama MD Work Phone: [facility] 01-12-2025 19:00-0400 SaO2% (BldA) [Mass fraction] 98 % Dr. Brayden Balderrama MD Work Phone: [facility] 01-12-2025 19:00-0400 Systolic blood pressure 142 mm[Hg] Dr. Brayden Balderrama MD Work Phone: [facility] 01-12-2025 18:00-0400 Respiratory rate 18 /min Dr. Brayden Balderrama MD Work Phone: [facility] 01-12-2025 13:14-0400 Body temperature 96 [degF] Dr. Brayden Balderrama MD Work Phone: [facility] 01-12-2025 13:07-0400 Body height 177.[address] Brayden Balderrama MD Work Phone: [phone] [address] 01-12-2025 13:07-0400 Body mass index (BMI) [Ratio] 23 kg/m2 Dr. Brayden Balderrama MD Work Phone: [phone] [address] 01-12-2025 13:07-0400 Body weight 72.[address] Brayden Balderrama MD Work Phone: [phone] [place] [address] 01-04-2025 16:35-0400 Body temperature 97.6 [degF] Dr. Brayden Balderrama MD Work Phone: [phone] [place] [address] 01-04-2025 16:35-0400 Diastolic blood pressure 71 mm[Hg] Dr. Brayden Balderrama MD Work Phone: [phone])186-349711 [address] 01-04-2025 16:35-0400 Heart rate 62 /min Dr. Brayden Balderrama MD Work Phone: [phone])090-912911 [address] 01-04-2025 16:35-0400 Respiratory rate 17 /min Dr. Brayden Balderrama MD Work Phone: [phone] [place] [address] 01-04-2025 16:35-0400 SaO2% (BldA) [Mass fraction] 98 % Dr. Brayden Balderrama MD Work Phone: [phone] [place] [address] 01-04-2025 16:35-0400 Systolic blood pressure 113 mm[Hg] Dr. Brayden Balderrama MD Work Phone: [phone] [place] [address] 01-04-2025 12:54-0400 Body height 177.[address] Brayden Balderrama MD Work Phone: 8(337)306-435611 [address] 01-04-2025 12:54-0400 Body mass index (BMI) [Ratio] 23.1 kg/m2 Dr. Brayden Balderrama MD Work Phone: [facility] 01-04-2025 12:54-0400 Body weight 73.[address] Brayden Balderrama MD Work Phone: [facility] 12-24-2024 14:52-0500 Heart rate 78 /min CHANNING TURNER MD [facility] 12-24-2024 14:52-0500 Blood Pressure Cuff Size CHANNING TURNER MD [facility] 12-24-2024 14:52-0500 Blood Pressure Location CHANNING TURNER MD [facility] 12-24-2024 14:52-0500 Blood Pressure Method CHANNING TURNER MD [facility] 12-24-2024 14:52-0500 Body temperature 98.24 [degF] CHANNING TURNER MD [facility] 12-24-2024 14:52-0500 Diastolic Blood Pressure Non-Invasive 80 mm[Hg] CHANNING TURNER MD [facility] 12-24-2024 14:52-0500 Reason For Taking VItal Signs CHANNING TURNER MD [facility] 12-24-2024 14:52-0500 Respiratory rate 18 /min CHANNING TURNER MD [facility] 12-24-2024 14:52-0500 Systolic Blood Pressure Non-Invasive 138 mm[Hg] CHANNING TURNER MD [facility] 12-24-2024 11:13-0500 Heart rate 69 /min CHANNING TURNER MD [facility] 12-24-2024 11:13-0500 Body temperature 98.24 [degF] CHANNING TURNER MD [facility] 12-24-2024 11:13-0500 Diastolic Blood Pressure Non-Invasive 77 mm[Hg] CHANNING TURNER MD [address] [place] [address] 12-24-2024 11:13-0500 Mean blood pressure 95 mm[Hg] CHANNING TURNER MD [address] [place] [address] 12-24-2024 11:13-0500 Reason For Taking VItal Signs CHANNING TURNER MD [address] [place] [address] 12-24-2024 11:13-0500 Respiratory rate 17 /min CHANNING TURNER MD [address] [place] [address] 12-24-2024 11:13-0500 Systolic Blood Pressure Non-Invasive 134 mm[Hg] CHANNING TURNER MD [address] [place] [address] 12-24-2024 09:28-0500 Heart rate 80 /min CHANNING TURNER MD [address] [place] [address] 12-24-2024 06:15-0500 Heart rate 72 /min CHANNING TURNER MD [address] [place] [address] 12-24-2024 06:14-0500 Diastolic Blood Pressure Non-Invasive 96 mm[Hg] CHANNING TURNER MD [address] [place] [address] 12-24-2024 06:14-0500 Mean blood pressure 114 mm[Hg] CHANNING TURNER MD [address] [place] [address] 12-24-2024 06:14-0500 Systolic Blood Pressure Non-Invasive 147 mm[Hg] CHANNING TURNER MD [address] [place] [address] 12-24-2024 06:14-0500 Body temperature 98.06 [degF] CHANNING TURNER MD [address] [place] [address] 12-24-2024 06:14-0500 Reason For Taking VItal Signs CHANNING TURNER MD [address] [place] [address] 12-24-2024 06:14-0500 Respiratory rate 17 /min CHANNING TURNER MD [address] [place] [address] 12-24-2024 00:03-0500 Blood Pressure Cuff Size CHANNING TURNER MD [address] 12-24-2024 00:03-0500 Blood Pressure Location CHANNING TURNER MD [address] 12-24-2024 00:03-0500 Blood Pressure Method CHANNING TURNER MD [address] [place] [address] 12-23-2024 22:19-0500 Blood Pressure Cuff Size CHANNING TURNER MD [address] 12-23-2024 22:19-0500 Blood Pressure Location CHANNING TURNER MD [address] 12-23-2024 22:19-0500 Blood Pressure Method CHANNING TURNER MD [address] [place] [address] 12-23-2024 22:18-0500 Mean blood pressure 111 mm[Hg] CHANNING TURNRE MD [address] 12-23-2024 22:10-0500 Heart rate 84 /min CHANNING TURNER MD [address] 12-23-2024 19:30-0500 Heart rate 70 /min CHANNING TURNER MD [address] 12-20-2024 20:50-0500 Body height 177.8 cm CHANNING TURNER MD [address] [place] [address] 12-20-2024 20:50-0500 Body weight 78.6 kg CHANNING TURNER MD [address] [place] [address] 12-20-2024 20:50-0500 Body weight 24.86 kg/m2 CHANNING TURNER MD [address] 12-20-2024 18:30-0500 Diastolic blood pressure 72 mm[Hg] Dr. Brayden Balderrama MD Work Phone: [facility] 12-20-2024 18:30-0500 Heart rate 58 /min Dr. Brayden Balderrama MD Work Phone: [facility] 12-20-2024 18:30-0500 Respiratory rate 16 /min Dr. Brayden Balderrama MD Work Phone: [facility] 12-20-2024 18:30-0500 SaO2% (BldA) [Mass fraction] 97 % Dr. Brayden Balderrama MD Work Phone: [facility] 12-20-2024 18:30-0500 Systolic blood pressure 122 mm[Hg] Dr. Brayden Balderrama MD Work Phone: [facility] 12-20-2024 17:02-0500 Body temperature 98.7 [degF] Dr. Brayden Balderrama MD Work Phone: [facility] 12-20-2024 11:16-0500 Body mass index (BMI) [Ratio] 23.6 kg/m2 Dr. Brayden Balderrama MD Work Phone: [facility] 12-20-2024 11:16-0500 Body weight 74.[address] Brayden Balderrama MD Work Phone: [facility] 12-15-2024 17:05-0500 Diastolic Blood Pressure Non-Invasive 62 mm[Hg] NIKHIL ROSAS MD [address] 12-15-2024 17:05-0500 Heart rate 70 /min NIKHIL ROSAS MD [address] 12-15-2024 17:05-0500 Respiratory rate 16 /min NIKHIL ROSAS MD [facility] 12-15-2024 17:05-0500 Systolic Blood Pressure Non-Invasive 114 mm[Hg] NIKHIL ROSAS MD [address] 12-15-2024 16:50-0500 Diastolic Blood Pressure Non-Invasive 80 mm[Hg] NIKHIL ROSAS MD [address] 12-15-2024 16:50-0500 Heart rate 70 /min NIKHIL ROSAS MD [address] 12-15-2024 16:50-0500 Respiratory rate 16 /min NIKHIL ROSAS MD [address] [place] [address] 12-15-2024 16:50-0500 Systolic Blood Pressure Non-Invasive 153 mm[Hg] NIKHIL ROSAS MD [address] [place] [address] 12-15-2024 16:35-0500 Diastolic Blood Pressure Non-Invasive 82 mm[Hg] NIKHIL ROSAS MD [address] [place] [address] 12-15-2024 16:35-0500 Heart rate 68 /min NIKHIL ROSAS MD [address] [place] [address] 12-15-2024 16:35-0500 Respiratory rate 16 /min NIKHIL ROSAS MD [address] [place] [address] 12-15-2024 16:35-0500 Systolic Blood Pressure Non-Invasive 132 mm[Hg] NIKHIL ROSAS MD [address] [place] [address] 12-15-2024 12:00-0500 Body height 177.8 cm NIKHIL ROSAS MD [address] [place] [address] 12-15-2024 12:00-0500 Body temperature 97.52 [degF] NIKHIL ROSAS MD [address] [place] [address] 12-15-2024 12:00-0500 Body weight 73.1 kg NIKHIL ROSAS MD [address] [place] [address] 10-06-2024 12:13-0500 Body temperature 98.1 [degF] Dr. Brayden Balderrama MD Work Phone: [facility] 10-06-2024 12:13-0500 Diastolic blood pressure 78 mm[Hg] Dr. Brayden Balderrama MD Work Phone: [facility] 10-06-2024 12:13-0500 Heart rate 77 /min Dr. Brayden Balderrama MD Work Phone: [facility] 10-06-2024 12:13-0500 Respiratory rate 18 /min Dr. Brayden Balderrama MD Work Phone: [facility] 10-06-2024 12:13-0500 SaO2% (BldA) [Mass fraction] 97 % Dr. Brayden Balderrama MD Work Phone: 7(868)983-588100 [place] [address] 10-06-2024 12:13-0500 Systolic blood pressure 132 mm[Hg] Dr. Brayden Balderrama MD Work Phone: 1(826)181-546984 [place] [address] 10-06-2024 07:38-0500 Body mass index (BMI) [Ratio] 23.7 kg/m2 Dr. Brayden Balderrama MD Work Phone: 4(254)696-472111 [address] 10-06-2024 07:38-0500 Body weight [address] Brayden Balderrama MD Work Phone: 4(322)607-389584 [place] [address] 07-20-2023 14:06-0400 Body height 177.[address] Brayden Balderrama Work Phone: 4(365)043-775884 [place] [address] 07-20-2023 14:06-0400 Body mass index (BMI) [Ratio] 22.9 kg/m2 Dr. Brayden Balderrama Work Phone: 7(528)513-983811 [address] 07-20-2023 14:06-0400 Body weight 72.[address] Brayden Balderrama Work Phone: 3(097)485-311384 [place] [address] 07-20-2023 14:06-0400 Diastolic blood pressure 76 mm[Hg] Dr. Brayden Balderrama Work Phone: 4(460)583-789384 [place] [address] 07-20-2023 14:06-0400 Heart rate 68 /min Dr. Brayden Balderrama Work Phone: 1(522)243-317511 [address] 07-20-2023 14:06-0400 Respiratory rate 16 /min Dr. Brayden Balderrama Work Phone: 0(425)360-947411 [address] 07-20-2023 14:06-0400 SaO2% (BldA) [Mass fraction] 99 % Dr. Brayden Balderrama Work Phone: 2(804)103-163500 [place] [address] 07-20-2023 14:06-0400 Systolic blood pressure 148 mm[Hg] Dr. Brayden Balderrama Work Phone: 4(297)133-121700 [place] [address] 05-17-2023 10:29-0400 Body weight 73.[address] Brayden Balderrama Work Phone: [facility] 05-17-2023 10:29-0400 Diastolic blood pressure 87 mm[Hg] Dr. Brayden Balderrama Work Phone: [facility] 05-17-2023 10:29-0400 Heart rate 54 /min Dr. Brayden Balderrama Work Phone: [facility] 05-17-2023 10:29-0400 Respiratory rate 16 /min Dr. Brayden Balderrama Work Phone: [facility] 05-17-2023 10:29-0400 Systolic blood pressure 181 mm[Hg] Dr. Brayden Balderrama Work Phone: [facility] 05-17-2023 08:12-0400 Body height 177.[address] Brayden Balderrama Work Phone: [facility] 02-18-2023 00:45-0400 Body temperature 98.8 [degF] Dr. Brayden Balderrama Work Phone: [facility] 02-18-2023 00:00-0400 Diastolic blood pressure 61 mm[Hg] Dr. Brayden Balderrama Work Phone: [facility] 02-18-2023 00:00-0400 Heart rate 84 /min Dr. Brayden Balderrama Work Phone: [facility] 02-18-2023 00:00-0400 Respiratory rate 20 /min Dr. Brayden Balderrama Work Phone: [facility] 02-18-2023 00:00-0400 SaO2% (BldA) [Mass fraction] 96 % Dr. Brayden Balderrama Work Phone: [facility] 02-18-2023 00:00-0400 Systolic blood pressure 129 mm[Hg] Dr. Brayden Balderrama Work Phone: [facility] 02-17-2023 21:50-0400 Body height 177.[address] Brayden Balderrama Work Phone: [facility] 02-17-2023 21:50-0400 Body mass index (BMI) [Ratio] 24.5 kg/m2 Dr. Brayden Balderrama Work Phone: [facility] 02-17-2023 21:50-0400 Body weight 77.[address] Brayden Balderrama Work Phone: [facility] 10-24-2022 08:38-0500 Body mass index (BMI) [Ratio] 23.8 kg/m2 Dr. Brayden Balderrama Work Phone: [facility] 10-24-2022 08:38-0500 Body temperature 97.8 [degF] Dr. Brayden Balderrama Work Phone: [facility] 10-24-2022 08:38-0500 Body weight 77.[address] Brayden Balderrama Work Phone: [facility] 10-24-2022 08:38-0500 Diastolic blood pressure 80 mm[Hg] Dr. Brayden Balderrama Work Phone: [facility] 10-24-2022 08:38-0500 Heart rate 64 /min Dr. Brayden Balderrama Work Phone: [facility] 10-24-2022 08:38-0500 Respiratory rate 18 /min Dr. Brayden Balderrama Work Phone: [facility] 10-24-2022 08:38-0500 SaO2% (BldA) [Mass fraction] 97 % Dr. Brayden Balderrama Work Phone: [facility] 10-24-2022 08:38-0500 Systolic blood pressure 164 mm[Hg] Dr. Brayden Balderrama Work Phone: [facility] 05-12-2022 14:06-0400 Body temperature 98.3 [degF] Dr. Brayden Balderrama Work Phone: [facility] Work Phone: 05-12-2022 14:06-0400 Diastolic blood pressure 65 mm[Hg] Dr. Brayden Balderrama Work Phone: [facility] Work Phone: 05-12-2022 14:06-0400 Heart rate 64 /min Dr. Brayden Balderrama Work Phone: [facility] Work Phone: 05-12-2022 14:06-0400 Respiratory rate 18 /min Dr. Brayden Balderrama Work Phone: [facility] Work Phone: 05-12-2022 14:06-0400 SaO2% (BldA) [Mass fraction] 94 % Dr. Brayden Balderrama Work Phone: [facility] Work Phone: 05-12-2022 14:06-0400 Systolic blood pressure 133 mm[Hg] Dr. Brayden Balderrama Work Phone: [facility] Work Phone: 05-11-2022 11:25-0400 Body height 177.[address] Brayden Balderrama Work Phone: [facility] Work Phone: 05-11-2022 11:25-0400 Body weight [address] Brayden Balderrama Work Phone: [facility] Work Phone: 05-10-2022 12:00-0400 Inhaled oxygen flow rate 6 L/min Dr. Brayden Balderrama Work Phone: [facility] Work Phone: 05-10-2022 06:25-0400 Body mass index (BMI) [Ratio] 23.1 kg/m2 Dr. Brayden Balderrama Work Phone: [facility] Work Phone: 04-25-2022 10:18-0400 Body height 177.[address] Brayden Balderrama Work Phone: [facility] Work Phone: 04-25-2022 10:18-0400 Body mass index (BMI) [Ratio] 23.1 kg/m2 Dr. Brayden Balderrama Work Phone: [facility] Work Phone: 04-25-2022 10:18-0400 Body weight 73.[address] Brayden Balderrama Work Phone: [facility] Work Phone: 04-25-2022 10:18-0400 Diastolic blood pressure 76 mm[Hg] Dr. Brayden Balderrama Work Phone: [facility] Work Phone: 04-25-2022 10:18-0400 Heart rate 60 /min Dr. Brayden Balderrama Work Phone: [facility] Work Phone: 04-25-2022 10:18-0400 Respiratory rate 16 /min Dr. Brayden Balderrama Work Phone: [facility] Work Phone: 04-25-2022 10:18-0400 Systolic blood pressure 164 mm[Hg] Dr. Brayden Balderrama Work Phone: [facility] Work Phone: 08-07-2017 15:29-0400 BMI (Body Mass Index) 23.96 kg/m2 [facility] Work Phone: 08-07-2017 15:29-0400 BP Diastolic 74 mm[Hg] [facility] Work Phone: 08-07-2017 15:29-0400 BP Systolic 180 mm[Hg] [facility] Work Phone: 08-07-2017 15:29-0400 Height 177.8 cm [facility] Work Phone: 08-07-2017 15:29-0400 Pulse (Heart Rate) 58 /min [facility] Work Phone: 08-07-2017 15:29-0400 Respiratory Rate 16 /min [facility] Work Phone: 08-07-2017 15:29-0400 Weight 75.75 kg Niya Bull [facility] Work Phone: 07-18-2016 10:37-0400 BMI (Body Mass Index) 23.39 kg/m2 Samuel Deedee CAMPOS [facility] Work Phone: 07-18-2016 10:37-0400 BP Diastolic 70 mm[Hg] Samuel Mark [employer] [facility] Work Phone: 07-18-2016 10:37-0400 BP Systolic 120 mm[Hg] Samuel Mark [employer] [facility] Work Phone: 07-18-2016 10:37-0400 BSA (Body Surface Area) 1.92 m2 Samuel Mark [employer] [facility] Work Phone: 07-18-2016 10:37-0400 Pulse (Heart Rate) 68 /min Samuel Mark [employer] [facility] Work Phone: 07-18-2016 10:37-0400 Respiratory Rate 20 /min Samuel Mark [employer] [facility] Work Phone: 07-18-2016 10:37-0400 Weight 73.94 kg Samuel Deedee CAMPOS [facility] Work Phone: 02-16-2012 10:42-0400 Heart rate 53 /min Janelle Craft RN [facility] Work Phone: 02-16-2012 10:42-0400 Heart rate 439 ms Janelle Craft RN [facility] Work Phone: 02-16-2012 10:29-0400 Height 177.8 cm Samuel Deedee CAMPOS [facility] Work Phone: Encounters Encounter Date Encounter Type Care Provider Facility Start: 03-09-2025 End: 03-09-[address] Brayden Balderrama MD Work Phone: [facility] Work Phone: Start: 03-09-2025 End: 03-09-[address] Brayden Balderrama MD -Laboratory [facility] Start: 03-09-2025 End: 03-09-2025 ambulatory Brayden Balderrama Facility:[facility] Start: 01-12-2025 End: 01-12-2025 Emergency department patient visit Dr. Brayden Balderrama MD Work Phone: -Emergency Department Work Phone: Start: 01-04-2025 End: 01-04-2025 Emergency department patient visit Dr. Brayden Balderrama MD Work Phone: -Emergency Department Work Phone: Start: 12-20-2024 End: 12-24-2024 Evaluation and management of inpatient CHANNINGCamilo TURNER MD [facility] Start: 12-20-2024 End: 12-20-2024 Emergency department patient visit Dr. Anya Basilio DO -Emergency Department Work Phone: Start: 12-15-2024 End: 12-15-[address] BRAYDEN BALDERRAMA MD Facility:A Start: 12-15-2024 End: 12-15-2024 SAME DAY STAY NIKHIL ROSAS MD [facility] Start: 12-05-2024 End: 12-05-[address] BRAYDEN BALDERRAMA MD Facility:[facility] Start: 12-05-2024 End: 12-05-[address] ASHLEY OCHOA MD [facility] Start: 10-06-2024 End: 10-06-2024 Emergency department patient visit Dr. Samm Santos DO -Emergency Department Work Phone: Start: 09-08-2024 End: 09-08-[address] Brayden Balderrama MD -[facility] Start: 09-08-2024 End: 09-08-2024 ambulatory Brayden Balderrama Facility:[facility] Start: 09-06-2023 End: 09-06-[address] Brayden Balderrama Work Phone: [facility] Work Phone: Start: 09-06-2023 End: 09-06-[address] Brayden Balderrama Work Phone: [facility] Work Phone: Start: 08-10-2023 End: 08-11-[address] ASHLEY OCHOA MD Facility:[facility] Start: 08-10-2023 End: 08-10-[address] ASHLEY OCHOA MD [facility] Start: 07-20-2023 End: 07-20-[address] Brayden Balderrama Work Phone: [facility] Work Phone: Start: 06-07-2023 End: 06-07-[address] Brayden Balderrama Work Phone: [facility] Work Phone: Start: 06-07-2023 End: 06-07-[address] Brayden Balderrama Work Phone: [facility]/Neurology Work Phone: Start: 06-07-2023 End: 06-07-[address] Brayden Balderrama Work Phone: [facility] Work Phone: Start: 05-17-2023 End: 05-17-[address] Brayden Balderrama Work Phone: [facility] Work Phone: Start: 03-01-2023 End: 03-01-[address] Brayden Balderrama Work Phone: [facility] Start: 02-17-2023 End: 02-18-2023 Emergency department patient visit Dr. Brayden Balderrama Work Phone: [facility]-Emergency Department Start: 10-24-2022 End: 10-24-[address] Brayden Balderrama Work Phone: [facility] Start: 10-04-2022 End: 10-04-2022 ambulatory [facility] Work Phone: Start: 10-04-2022 End: 10-04-2022 Patient encounter procedure [facility] Start: 05-22-2022 End: 05-22-[address] Brayden Balderrama Work Phone: [facility] Start: 05-10-2022 End: 05-12-2022 Evaluation and management of inpatient Dr. Brayden Balderrama Work Phone: [facility]Medical Surgical 3 Start: 05-04-2022 Non-patient / Non-visit Dr. Brayden Balderrama Work Phone: [facility] Start: 05-04-2022 End: 05-04-[address] Brayden Balderrama Work Phone: [facility]Cardi[facility] Services Start: 04-25-[address] 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 Brayden Balderrama Work Phone: [facility] Start: 04-25-2022 End: 04-25-[address] Brayden Balderrama Work Phone: [facility] Start: 04-04-2022 End: 04-04-2022 Patient encounter procedure [facility] Start: 12-08-2021 End: 12-08-2021 Patient encounter procedure [facility] Procedures Date Procedure Procedure Detail Performing [...] GLORIA MD Comment on above: [employer] [id number] Shubuta SN# [id number] RA lead 4076-58 SN# [id number] RV lead 3830-69 SN# [id number] Start: 12-20-2024 Urnls dip stick/tablet reagent auto [...] shorty 12/15/2024 [employer] LNQ22 LINQ !! Serial [id number] Dr George Rosas Start: 10-06-2024 Plain chest X-ray Dr. Brayden [...] Panel Jessie Bush Start: 07-18-2016 End: 07-18-2016 PSYCHIATRIC SOCIAL WORKER Nixon Restrepo MD Start: 07-18-2016 End: 07-18-2016 [...] Restrepo MD Start: 02-16-2012 End: 02-28-2012 Echocardiography Nixno Restrepo MD Start: 02-16-2012 End: 02-16-2012 Follow [...] Date Care Activity Detail Author Start: 01-12-2025 [facility] Start: 01-12-2025 [facility] Start: 01-04-2025 End: 01-04-2025 [facility] Start: 12-20-2024 [facility] Start: 12-20-2024 [facility] Start: 10-06-2024 [facility] Start: 10-24-2022 Patient referral [facility] Work Phone: Start: 05-12-2022 Patient discharge [facility] Work Phone: Start: 05-10-2022 Following clinical pathway protocol [facility] Work Phone: Start: 05-10-2022 Provision of activity privileges [facility] Work Phone: Start: 05-10-2022 Vital signs measurements [facility] Work Phone: Start: 05-10-2022 Admission procedure [facility] Work Phone: Start: 08-13-2018 End: 08-13-2018 Appointment Appointment [facility] Work Phone: Start: 08-01-2018 End: 08-03-2017 *Hepatic Function Panel *Hepatic Function Panel [facility] Work Phone: Start: 08-01-2018 End: 08-03-2017 Lipid panel [AGGREGATE] *Lipid Profile CC PCP [facility] Work Phone: Start: 08-07-2017 End: 08-07-2017 Appointment Appointment [facility] Work Phone: Start: 08-07-2017 End: 08-07-2017 PSYCHIATRIC SOCIAL WORKER PSYCHIATRIC SOCIAL WORKER [facility] Work Phone: Start: 08-07-2017 End: 08-07-2017 Follow Up Appt 1 year Follow Up Appt 1 year [facility] Work Phone: Start: 07-20-2017 End: 08-01-2017 *Hepatic Function Panel *Hepatic Function Panel [facility] Work Phone: Start: 07-20-2017 End: 08-01-2017 Lipid panel [AGGREGATE] *Lipid Profile CC PCP [facility] Work Phone: Start: 07-18-2016 End: 07-21-2016 *BMP *BMP [facility] Work Phone: Start: 07-18-2016 End: 07-21-2016 *CBC with Differential *CBC with Differential [facility] Work Phone: Start: 07-18-2016 End: 07-21-2016 *Hepatic Function Panel *Hepatic Function Panel [facility] Work Phone: Start: 07-18-2016 End: 07-18-2016 PSYCHIATRIC SOCIAL WORKER PSYCHIATRIC SOCIAL WORKER [facility] Work Phone: Start: 07-18-2016 End: 07-18-2016 Follow Up Appt 1 year Follow Up Appt 1 year [facility] Work Phone: Start: 07-18-2016 End: 07-21-2016 Lipid panel [AGGREGATE] *Lipid Profile CC PCP [facility] Work Phone: Start: 07-17-2014 End: 07-17-2014 PSYCHIATRIC SOCIAL WORKER PSYCHIATRIC SOCIAL WORKER [facility] Work Phone: Start: 07-17-2014 End: 07-17-2014 Follow Up Appt 1 year Follow Up Appt 1 year [facility] Work Phone: Start: 11-11-2013 End: 11-14-2013 *BMP *BMP [facility] Work Phone: Start: 11-11-2013 End: 11-14-2013 BNP *Brain Natriuretic Peptide BNP [facility] Work Phone: Start: 11-11-2013 End: 11-11-2013 PSYCHIATRIC SOCIAL WORKER PSYCHIATRIC SOCIAL WORKER [facility] Work Phone: Start: 11-11-2013 End: 11-11-2013 Echocardiography Echocardiogram (complete) [facility] Work Phone: Start: 11-11-2013 End: 11-11-2013 Follow Up Appt 6 months Follow Up Appt 6 months [facility] Work Phone: Start: 11-11-2013 End: 11-14-2013 Magnesium *Magnesium [facility] Work Phone: Start: 11-11-2013 End: 11-14-2013 Thyroid stimulating hormone (TSH) *TSH [facility] Work Phone: Start: 11-12-2012 End: 11-12-2012 Follow Up Appt 1 year Follow Up Appt 1 year [facility] Work Phone: Start: 02-16-2012 End: 02-16-2012 Ecg routine ecg w/least 12 lds w/i&r EKG (In office) [facility] Group Work Phone: Start: 02-16-2012 End: 02-16-2012 Echocardiography Echocardiogram (complete) [facility] Work Phone: Start: 02-16-2012 End: 02-16-2012 Follow Up Appt 6 months Follow Up Appt 6 months [facility] Work Phone: Start: 02-16-2012 End: 02-16-2012 Nuclear stress test -exercise Nuclear stress test -exercise [facility] Work Phone: Start: 02-16-2012 End: 11-14-2013 Thyroid stimulating hormone (TSH) *TSH [facility] Work Phone: Basic metabolic 2008 panel with ionized calcium - Serum or Plasma [facility] Patient Education [facility] Work Phone: Patient referral [facility] Work Phone: Immunizations Immunization Date Immunization Notes Care Provider Fa agus 09-08-2024 influenza virus vacc ine, unspecified formulation CHANNING TURNER MD [facility] 09-06-2023 influenza virus vacc ine, unspecified formulation CHANNING TURNER MD [facility] 10-03-2021 influenza virus vacc ine, unspecified formulation CHANNING TURNER MD [facility] 07-27-2020 influenza virus vacc ine, unspecified formulation CHANNING TURNER MD [facility] 08-08-2018 influenza virus vacc ine, unspecified formulation CHANNING TURNER MD [facility] Payers Date Payer Category Payer Medicare [id number] 2024 Medicare [id number] 2024 Medicare [id number] 2024 Unknown [id number] 2024 Self-pay [id number] 2012 Unknown [id number] 1940 Unknown [id number] 2.16.8 [id number] 1940 Unknown [id number] 2.16.8 [id number] 1940 Unknown [id number] 2.16.8 [id number] 1940 Unknown [id number] 2.16.8 [id number] Medicare MEDICARE A ONLY [id number] Unknown [id number] 2.16.8 [id number] Unknown [id number] 2.16.8 [id number] Unknown [id number] 2.16.8 [id number] Unknown [id number] 2.16.8 [id number] Unknown [id number] 2.16.8 [id number] Unknown [id number] 2.16.8 [id number] Social History Date Type Detail Facility Start: 11-06-2019 End: 07-20-2023 Tobacco smoking status NHIS Unknown if ever smoked [facility] Start: 1940 Sex Assigned At Male [facility] Start: 07-20-2023 End: 02-25-2024 Tobacco smoking status Ex-smoker (finding) [facility] Comment on above: Quit smoking in 1964 No smoking Sexual Orientation [facility] Start: 04-16-2019 End: 01-12-2025 Sex Male (finding) [facility] Start: 01-04-2025 End: 01-12-2025 Tobacco smoking status NHIS Current some day smoker [facility] Medical Equipment Procedure Code Equipment Code Equipment [...] risk, Bed alert on, Room check performed [facility] 12-24-2024 Functional Status Independent [facility] 12-24-2024 Functional Status None [facility] 12-24-2024 Functional Status [facility] 12-24-2024 Functional Status [facility] 12-24-2024 Functional Status [facility] 12-23-2024 Functional Status [facility] 12-23-2024 Functional Status [facility] 12-23-2024 Functional Status Mod I [facility] 12-23-2024 Functional Status [facility] 12-23-2024 Functional Status Done [facility] 12-23-2024 Functional Status Done [facility] 12-22-2024 Functional Status [facility] 12-22-2024 Functional Status Feeding Assistance Setu p [facility] 12-22-2024 Functional Status [facility] 12-21-2024 Functional Status [facility] 12-20-2024 Functional Status N/A [facility] 12-15-2024 Functional Status Identified as high risk, Fall ID band on [facility] 05-12-2022 Functional status Up ad tsaci [facility] Work Phone: Mental Status Date Assessment Result Facility 01-12-2025 Cognitive function Level Of Cons ciousness Awake;Alert;Appropriate;Follow s Commands [facility] Work Phone: 01-04-2025 Cognitive function Level Of Cons ciousness Awake;Alert;Appropriate;Follow s Commands [facility] Work Phone: 12-24-2024 Mental Status Orientation Orie nted x 4, Forgetful, Follows simple commands [facility] 12-24-2024 Mental Status [facility] 12-24-2024 Mental Status [facility] 12-23-2024 Mental Status [facility] 12-22-2024 Mental Status [facility] 12-20-2024 Cognitive function Level Of Cons ciousness Awake;Alert;Appropriate;Follow s Commands [facility] Work Phone: 12-15-2024 Mental Status Orientation Oriented x 4 [facility] 12-15-2024 Mental Status [facility] 02-17-2023 Cognitive function Level Of Cons ciousness Awake;Alert;Appropriate;Follow s Commands [facility] Work Phone: 05-12-2022 Cognitive function Touch/Shaking [facility] Work Phone: Clinical Notes 02-17-2023 to 01-12-2025 Note Date & Type Note Facility 01-12-2025 Discharge summary [facility] 01-12-2025 Radiology Diagnostic study note [facility] Imaging Services [address] [place], [place] [address] CTA Chest W/WO Contrast MR#: [id number] Acct: [id number] Name: MAGUI TORRES Rep #: [id number] : 1940 M 84 From: Edna Rees MD PCP: Dr. Brayden Balderrama MD Status: REG E R Study:CTA Chest W/WO Contrast Date of Exam: 01/12/25 Exam# [id number] Ordering Dr: Roger Mcgill DO EXAM: CT [...] Contrast IMPRESSION: No pulmonary embolism. Reading Location: [facility] CC: Dr. Roger Ambrosio DO; Dr. Brayden Balderrama MD ~ Serging Machine Operator: Signed [facility] 01-12-2025 Radiology Diagnostic study note [facility] Imaging Services [address] [place] [address] [id number] Chest 1 View (Portable) MR#: [id number] Acct: [id number] Name: MAGUI TORRES Rep #: [id number] : 1940 M 84 From: Edna Rees MD PCP: Dr. Brayden Balderrama MD Status: REG E R Study:Chest 1 View (Portable) Date of Exam: 01/12/25 Exam# [id number] Ordering Dr: Roger Mcgill DO EXAM: XR Chest, 1 View [...] (Portable) IMPRESSION: Pulmonary venous congestion. Reading Location: [facility] CC: Dr. Roger Ambrosio DO; Dr. Brayden Balderrama MD ~ Serging Machine Operator: Signed [facility] 01-12-2025 Discharge summary Note Date/Time January 12, 2025 7:06pm [facility] Medical Records Department [address] [place] [address] Emergency Department Summary 01/12/25 MR#: [id number] Acct: [id number] Name: MAGUI TORRES Rep #:[id number] : 1940 84 From: Roger milligan DO [...] be discharged to follow-up with cardiology at [facility] as arranged by Dr. Pastrana. Disposition is [...] 22/2025 he received a Medtronic pacemaker at [facility]. This was due to syncopal episode and [...] intact Psych: Cooperative, appropriate mood and affect [facility] Medical History (Updated 01/12/25 @ 00:02 by [...] Given that patient follows with cardiology at [facility] I did contact them. I spoke with [...] 73.1 H Lymph % (Auto) 12.2 L [place] % (Auto) 10.3 H Eos % (Auto) [...] Clarity Clear Urine pH 7.0 Ur Specific [place] 1.005 Urine Protein 30 H Urine Glucose [...] 15:06 IMPRESSION: Pulmonary venous congestion. Reading Location: [facility] Chest CTA 01/12/25 16:10 IMPRESSION: No pulmonary embolism. Reading Location: [facility] Discharge Plan Triage Chief Complaint: Syncope ED [...] MD [Primary Care Provider] - Print Language: Maldivian What to do if you have Problems For any increased pain, shortness of breath, bleeding, nausea or vomiting, chestpain, or any unexpected problems, contact your Primary Care Provider. Call [facility] ([phone]) or report to the closest Emergency Room. Call 911 if necessary. 01/12/251842 <Electronically signed by Roger Ambrosio DO> Cosigner Signature (if applicable): CC: Dr. Brayden Balderrama MD ~ Signed [facility] Work Phone: 1(799) 770-735003-16-2025 Radiology Diagnostic study note [facility] Imaging Services [address] [place] [address] Chest 1 View (Portable) MR#: [id number] Acct: [id number] Name: MAGUI TORRES Rep #: [id number] : 1940 M 84 From: Olvin Zabala DO PCP: Dr. Brayden Balderrama MD Status: PRE E R Study:Chest 1 View (Portable) Date of Exam: 01/04/25 Exam# [id number] Ordering Dr: Brayden Marquez WELDER/FITTERJose Luis PROCEDURE: Chest radiograph REASON FOR EXAM: CHEST PAIN TECHNIQUE: Frontal view of the chest. COMPARISON: None. FINDINGS: Left cardiac pacer in place. Cardiomediastinal silhouette is within normal limits. Lungs are clear.No sizable pneumothorax. RAD/Chest 1 View (Portable) IMPRESSION: No acute airspace abnormality. Reading Location: [facility] CC: DENIZ Mcguire; Dr. Brayden Balderrama MD ~ Serging Machine Operator: Signed [facility]03-05-2025 Discharge summary Date of Service 12/24/2024 12:38:00 Discharge Diagnosis Syncopal episode secondary to sinus pauses Right bundle branch block History of frequent PVCs, on mexiletine Isolated atrial fibrillation event currently not on anticoagulation Hypertension Hypothyroidism CKD (Baseline Cr 1.7-1.8) Hospital Course 84-year-old male with history of frequent PVCs (14% burden--> 0.9%, on mexiletine), RBBB, hypertension, isolated AF event who presented to [facility] for concerns of syncopal episode in the [...] that correlated with the event. Workup at [place] was largely unremarkable however it was noted [...] MUKHERJEE MD, Surgery When:Within 3-7 days Where:[address] [facility] [address] [place] [address]- [phone] Additional Information: general surgeon who can help with your hemorrhoids Follow Up with Readmission Risk Score Additional Information: 10 Follow Up with BRAYDEN BALDERRAMA When:Within 1-2 days Where:[address] [facility] [address] [place] [address] [phone] Business (1) Follow Up with [facility] When:01/06/2025 01:00 PM EDT Where:[address] [facility] [address] [place] [address]- [phone] Additional Information: This is your incision check in the Device Clinic. Follow Up with [facility] When:03/26/2025 10:30 AM EDT Where:[address] [facility] [address] [place] [address]- [phone] Additional Information: This is your hospital follow [...] DO 12/23/2024 12:08 EST Digitally Signed by WNINIE GAR DO on 12/24/2024 12:39 PM [id number] Discharge instructions Patient Education 12/24/2024 15:29:25 Syncope, Ilfc-aw-Mkmp Syncope Syncope is when you pass out [...] pee (urine) pale yellow. General instructions Take wokg-dvl-rhjzicb and prescription medicines only as told by [...] 03/26/2009 Document Revised: 11/20/2018 Document Reviewed: 11/20/2018 iiko Patient Education 2020 [employer]. 12/24/2024 15:28:19 Pacemaker Implantation, Adult, Care After [...] Follow these instructions at home: Medicines Take jiqe-ddw-zluldzz and prescription medicines only as told by [...] 04/27/2006 Document Revised: 09/20/2018 Document Reviewed: 07/20/2017 iiko Patient Education 2020 [employer]. Follow Up Care 12/20/2024 15:13:50 With:Home Health Care (RN/PT/OT) [facility] Address: [phone] When:1-2 days With:IRA MUKHERJEE MD, Surgery Address: [address] [place] [address] [address] [facility] [place] [address] [phone] When:3-7 days Comments:general surgeon who can help with your hemorrhoids With:[facility] Address: [address] [place] [address] [id number] [place] [address]- [phone] When:01/06/2025 13:00:00 Comments:This is your incision check in the Device Clinic. With:[facility] Address: [address] [place] [address] [address] [place] [address]- [phone] When:03/26/2025 10:30:00 Comments:This is your hospital follow up in the [facility]. With:Readmission Risk Score Address:Unknown When: Unknown Comments:10 With:BRAYDEN BALDERRAMA Address: [address] [place] [address] [phone] Business (1) When:1-2 days [facility] 03-05-2025 Note Discharge Instructions Thank you for allowing [facility] to assist you with your healthcare needs. The following is importantdischarge information regarding your hospital visit. Your Care Team BRAYDEN BALDERRAMA MD What to do next Scheduled Follow-Up Appointments Appointment Type When Where Contact Information StatusCV Incision Check 01/06/2025 01:00 PM EDT [facility] Confirmed CV Office Procedure ICD 03/26/2025 10:30 AM EDT [facility] Confirmed CV Remote Procedure HM 06/29/2025 08:45 AM EDT [facility] Confirmed Follow Up Appointments Follow Up with Home Health Care (RN/PT/OT) [facility] When:Within 1-2 days Where: [phone] Follow Up with IRA MUKHERJEE MD, Surgery When:Within 3-7 days Where:[address] [facility] [address] [facility] [place] [address]- [phone] Additional Information: general surgeon who can help with your hemorrhoids Follow Up with Readmission Risk Score Additional Information: 10 Follow Up with BRAYDEN BALDERRAMA When:Within 1-2 days Where:[address] [facility] [address] [place] [address] [phone] Business (1) Follow Up with [facility] When:01/06/2025 01:00 PM EDT Where:[address] [facility] [address] [place] [address]- [phone] Additional Information: This is your incision check in the Device Clinic. Follow Up with [facility] When:03/26/2025 10:30 AM EDT Where:[address] [facility] [address] [place] [address]- [phone] Additional Information: This is your hospital follow [...] pee (urine) pale yellow. General instructions Take xvcn-dug-dqdyzfm and prescription medicines only as told by [...] 03/26/2009 Document Revised: 11/20/2018 Document Reviewed: 11/20/2018 iiko Patient Education 2020 [employer] Pacemaker Implantation, Adult, Care After This [...] Follow these instructions at home: Medicines Take adlw-foe-sbsyujb and prescription medicines only as told by [...] 04/27/2006 Document Revised: 09/20/2018 Document Reviewed: 07/20/2017 iiko Patient Education 2020 [employer]. Additional Information VACCINATE! IT SAVES LIVES! Members of the community who have not yet received the COVID-19 vaccine and would like to receive it can visit one of [facility] vaccine clinics. There are many vaccine clinic locations within the [facility]. For locations and available times, please visit https://[email or web address].gov/. It is important to note that some COVID mobile vaccine clinics are held outdoors and may be canceled in rainy or stormy conditions. To learn more about pediatric vaccinations (ages 5-11), we invite you to visit the [facility] webpage. https://www.[employer].org/pages/3757-Wyrib-Duiewvveniw-Zbiyfwgjto-Mjoei-Agc stions.htmlTo learn more about the COVID-19 vaccine, we invite you to visit the CDC website for a list of frequently asked questions.https://www.cdc.gov/coronavirus/2019-ncov/vaccines/faq.html [facility] Patient Portal Access Instructions: Stay connected with your healthcare team and access your personal medical information anytime with the [facility] Patient Portal. Please follow the directions below to create your [facility] account: 1.Access the email account you provided upon registration to the hospital/physician office.2.Look for an invitation email from [facility].3.Open the email and access the invitation link: AcceptInvitation to [facility].4.Fill in the required marroquin to create your account. To access your account, visit [facility] [employer]itat. Click the blue button labeled Access Patient [...] who you will allowto register on the [facility] In[facility]comChart Patient Portal for access to your information. You can also access the [facility] Patient Portal on the [facility] joão. Simply click on Patient Portal and then log into your account. If you would like to receive a full copy of your medical records, please contact the [facility] Medical Records Department by calling [phone], Sunday through Sunday between 8 a.m. and [...] Call your local pharmacy or go to http://ArriveBefore.Imitix/1Q3Cf5x to find one close to you.3.Make use of household items: Use cat litter or old coffee grounds to dispose medications if other options arenot available. Mix your drugs with these household products, seal them in an airtight container andthrow it into the garbage. Call [facility]: [phone] to be sure your drugs can be [...] CHART COPY. Signatures Patient Education Materials Syncope, Iswt-iu-Kkym Pacemaker Implantation, Adult, Care After Medication Leaflets My discharge plan and instructions have been reviewed and explained to me and I,ANATOLIY TORRES understand my current condition and have read and understand these discharge instructions. I have received a written copy of the plan/instructions. If I have questions, I am aware that I should contact my d octor. 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 Patient presented to [facility] after experiencing a syncopal episode while out to lunch with his . Per documentation, patient was lightheaded, diaphoretic and vomited following the syncopal episode. Interrogation of patient's loop recorder was completed which did demonstrate a 3-second sinus pause that correlated with the syncopal event. While at [facility], patient was having episodes of bradycardia and was subsequently transferred to [facility] for further evaluation. Patient underwent permanent pacemaker [...] per primary team Discussed with Dr. Samuel, [facility] physician. From a medical standpoint the patient's [...] by YULIA TAVERAS on 12/24/2024 11:28 AM [id number] Note Discharge Instructions Thank you for allowing [facility] to assist you with your healthcare needs. The following is importantdischarge information regarding your hospital visit. Your Care Team BRAYDEN BALDERRAMA MD What to do next Scheduled Follow-Up Appointments Appointment Type When Where Contact Information StatusCV Incision Check 01/06/2025 01:00 PM EDT [facility] Confirmed CV Office Procedure ICD 03/26/2025 10:30 AM EDT [facility] Confirmed CV Remote Procedure HM 06/29/2025 08:45 AM EDT [facility] Confirmed Follow Up Appointments Follow Up with Home Health Care (RN/PT/OT) [facility] When:Within 1-2 days Where: [phone] Follow Up with IRA MUKHERJEE MD, Surgery When:Within 3-7 days Where:[address] [facility] [address] [place] [address]- [phone] Additional Information: general surgeon who can help with your hemorrhoids Follow Up with Readmission Risk Score Additional Information: 10 Follow Up with BRAYDEN BALDERRAMA When:Within 1-2 days Where:[address] [place] [address] [phone] Business (1) Follow Up with [facility] When:01/06/2025 01:00 PM EDT Where:[address] [facility] [address] [place] [address]- [phone] Additional Information: This is your incision check in the Device Clinic. Follow Up with [facility] When:03/26/2025 10:30 AM EDT Where:[address] [facility] [address] [place] [address]- [phone] Additional Information: This is your hospital follow [...] to receive it can visit one of [facility] vaccine clinics. There are many vaccine clinic locations within the [facility]. For locations and available times, please visit https://gettheshot.coronavirus.[place].gov/. It is important to note that some COVID mobile vaccine clinics are held outdoors and may be canceled in rainy or stormy conditions. To learn more about pediatric vaccinations (ages 5-11), we invite you to visit the [facility] webpage. https://www.[facility].org/pages/7363-Ssiwj-Ujnqxvhaobu-Kytnytdaek-Hwopl-Smf stions.htmlTo learn more about the COVID-19 vaccine, we invite you to visit the CDC website for a list of frequently asked questions.https://www.cdc.gov/coronavirus/2019-ncov/vaccines/faq.html [facility] Patient Portal Access Instructions: Stay connected with your healthcare team and access your personal medical information anytime with the [facility] Patient Portal. Please follow the directions below to create your [facility] account: 1.Access the email account you provided upon registration to the hospital/physician office.2.Look for an invitation email from [facility].3.Open the email and access the invitation link: AcceptInvitation to [facility].4.Fill in the required marroquin to create your account. To access your account, visit [email or web address]. Click the blue button labeled Access Patient Portal and then log in with the username and password that you created in the steps above. You will be able to view your test results, lab results, a summary of your visits, upcoming appointments and more. There is also a convenient messaging option where you can send secure messages to your p General [employer]. In addition, you will have the ability to download any documents or summaries to your computer and/or send the information securely to a physician. Remember that your healthcare information is confidential, so carefully consider who you will allowto register on the [facility] Patient Portal for access to your information. You can also access the [facility] Patient Portal on the [facility] joão. Simply click on Patient Portal and then log into your account. If you would like to receive a full copy of your medical records, please contact the [facility] Medical Records Department by calling [phone], Sunday through Sunday between 8 a.m. and [...] Call your local pharmacy or go to http://bit.ly/1L2Bo0u to find one close to you.3.Make use of household items: Use cat litter or old coffee grounds to dispose medications if other options arenot available. Mix your drugs with these household products, seal them in an airtight container andthrow it into the garbage. Call [facility]: [phone] to be sure your drugs can be [...] that I should contact my d octor. 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/Wooden Barrel Mechanic Signature: Date/Time: Relationship to Patient: Witness Name/Signature: Date/Time[id number] Discharge summary Date of Service 12/24/2024 12:38:00 Discharge Diagnosis Syncopal episode secondary to sinus pauses Right bundle branch block History of frequent PVCs, on mexiletine Isolated atrial fibrillation event currently not on anticoagulation Hypertension Hypothyroidism CKD (Baseline Cr 1.7-1.8) Hospital Course 84-year-old male with history of frequent PVCs (14% burden--> 0.9%, on mexiletine), RBBB, hypertension, isolated AF event who presented to [facility] for concerns of syncopal episode in the [...] that correlated with the event. Workup at [place] was largely unremarkable however it was noted [...] MUKHERJEE MD, Surgery When:Within 3-7 days Where:[address] [facility] [address] [facility] [place] [address]- [phone] Additional Information: general surgeon who can help with your hemorrhoids Follow Up with Readmission Risk Score Additional Information: 10 Follow Up with BRAYDEN BALDERRAMA When:Within 1-2 days Where:[address] [facility] [address] [place] [address] [phone] Business (1) Follow Up with [facility] When:01/06/2025 01:00 PM EDT Where:[address] [place] [address] [id number] [place] [address]- [phone] Additional Information: This is your incision check in the Device Clinic. Follow Up with [facility] When:03/26/2025 10:30 AM EDT Where:[address] [place] [address] [id number] [place] [address]- [phone] Additional Information: This is your hospital follow [...] WINNIE GAR DO on 12/24/2024 12:39 PM [facility]57 Note Date of Service 12/25/2023 Chief Complaint hemorrhoids Subjective Pt is a 84-year-old male with past medical history significant for chronic kidney disease, frequentPVCs, hypertension, hypothyroidism, paroxysmal atrial fibrillation (not on anticoagulation), recurrent syncope status post loop recorder and right bundle branch block. Patient presented to [facility] after experiencing a syncopal episode while out to lunch with his . Per documentation, patient was lightheaded, diaphoretic and vomited following the syncopal episode. Interrogation of patient's loop recorder was completed which did demonstrate a 3-second sinus pause that correlated with the syncopal event. While at [facility], patient was having episodes of bradycardia and was subsequently transferred to [facility] for further evaluation. Patient underwent permanent pacemaker [...] by YULIA TAVERAS on 12/24/2024 11:28 AM [facility]Nyfzmrcc52-39-7279 Pastoral care Progress note Pastoral Care Note [...] by Osmel Chandler on 12/24/2024 10:11 AM [facility] EastThhurglo20-08-6276 Note Date of Service 12/23/2024 Reason for Consultation BRBPR Referring Physician Cardiology History of Present Illness 84-year-old male with past medical history significant for chronic kidney disease, frequent PVCs, hypertension, hypothyroidism, paroxysmal atrial fibrillation (not on anticoagulation), recurrent syncope status post loop recorder and right bundle branch block. Patient presented to [facility] af ter experiencing a syncopal episode while out to lunch with his . Per documentation, patient was lightheaded, diaphoretic and vomited following the syncopal episode. Interrogation of patient's loop recorder was completed which did demonstrate a 3-second sinus pause that correlated with the syncopal event. While at [facility], patient was having episodes of bradycardia and was subsequently transferred to [facility] for further evaluation. Patient underwent permanent pacemaker [...] to be in any acute distress. Skin: [place], warm, dry, intact and normal for ethnicity. [...] has received contrast, 1 EA, Miscellaneous, Unscheduled [place] 325- 5 mg oral tablet, 1 tab(s), [...] by KEHINDE KELLY on 12/24/2024 04:19 AM [id number] Cardiology Progress note Date of Service 12/23/2024 [...] PRAVEEN RASHEED DO on 12/23/2024 05:59 PM [id number] Discharge summary Date of Service 12/23/2024 12:08:54 Discharge Diagnosis Syncopal episode secondary to sinus pauses Right bundle branch block History of frequent PVCs, on mexiletine Isolated atrial fibrillation event currently not on anticoagulation Hypertension Hypothyroidism CKD (Baseline Cr 1.7-1.8) Hospital Course 84-year-old male with history of frequent PVCs (14% burden--> 0.9%, on mexiletine), RBBB, hypertension, isolated AF event who presented to [facility] for concerns of syncopal episode in the [...] that correlated with the event. Workup at [place] was largely unremarkable however it was noted [...] 1-2 days Where:[address] [place] [address] [phone] Business (1) Follow Up Appointments No qualifying [...] WINNIE GAR DO on 12/23/2024 12:11 PM [facility]Gdckbfzp41-93-3075 Discharge summary Date of Service 12/23/2024 12:08:54 Discharge Diagnosis Syncopal episode secondary to sinus pauses Right bundle branch block History of frequent PVCs, on mexiletine Isolated atrial fibrillation event currently not on anticoagulation Hypertension Hypothyroidism CKD (Baseline Cr 1.7-1.8) Hospital Course 84-year-old male with history of frequent PVCs (14% burden--> 0.9%, on mexiletine), RBBB, hypertension, isolated AF event who presented to [facility] for concerns of syncopal episode in the [...] that correlated with the event. Workup at [place] was largely unremarkable however it was noted [...] BRAYDEN BALDERRAMA When:Within 1-2 days Where:[address] [facility] [address] [place] [address] [phone] Business (1) Follow Up Appointments No qualifying [...] WINNIE GAR DO on 12/23/2024 12:11 PM [id number] Note* Exam Date Time Procedure Performing Provider Status 12/23/24 11:27 AM XR Chest 2 Views SCOUT DAWSON MD; [facility] (Verified) [id number] ORIGINAL EXAMINATION: TWO XRAY VIEWS OF THE [...] 12/23/2024 11:56:24 AM Ordering Provider: DIGNA LUCERO [id number] Note* Exam Date Time Procedure Performing Provider Status 12/22/24 5:39 PM XR Chest 1 View NIKHIL FIELD DO; Aut h (Verified) [id number] ORIGINAL EXAMINATION: ONE XRAY VIEW OF THE [...] 12/22/2024 7:11:13 PM Ordering Provider: VENITA BRANCH [id number] Note* Exam Date Time Procedure Performing Provider Status 12/22/24 5:10 PM Electrocardiogram - EKG - CV SAMUEL TSANG MD; Auth (Verified) ECG Final Report ATRIAL-SENSED VENTRICULAR-PACED COMPLEXES LOW QRS VOLTAGE IN EXTREMITY LEADS Electronic Signature: SAMUEL TSANG MD 12/23/2024 19:01:47 [id number] Cardiology Progress note Date of Service 12/22/2024 11:45:24 Chief Complaint 84-year-old male with history of frequent PVCs (14% burden--> 0.9%, on mexiletine), RBBB, hypertension, isolated AF event who presented to [facility] for concerns of syncopal episode in the [...] that correlated with the event. Workup at [place] was largely unremarkable however it was noted [...] WINNIE GAR DO on 12/22/2024 11:46 AM [facility]Pvqxoybr06-53-6590 Note* Exam Date Time Procedure Performing Provider Status 12/22/24 2:41 PM Permanent Pacemaker - CV VENITA BRANCH MD; Auth (Verified) [facility]Pzfixjiw61-05-7190 Cardiology Progress note Date of Service 12/22/2024 11:45:24 Chief Complaint 84-year-old male with history of frequent PVCs (14% burden--> 0.9%, on mexiletine), RBBB, hypertension, isolated AF event who presented to [facility] for concerns of syncopal episode in the [...] that correlated with the event. Workup at [place] was largely unremarkable however it was noted [...] WINNIE GAR DO on 12/22/2024 11:46 AM [facility]Dfrhkcib85-22-2689 Cardiology Consult note Date of Service 12/22/34 [...] described above. Nikhil Rosas MD Cardiac Electrophysiology [phone] Problem List/Past Medical History Ongoing CKD (chronic [...] NIKHIL ROSAS MD on 12/22/2024 07:42 AM [facility] [id number] Note* Exam Date Time Procedure Performing Provider Status 12/21/24 6:01 PM Electrocardiogram - EKG - CV SAMUEL TSANG MD; Auth (Verified) ECG Final Report SINUS RHYTHM RIGHT BUNDLE BRANCH BLOCK Electronic Signature: SAMUEL TSANG MD 12/22/2024 22:05:11 [facility]Vagvsszr96-36-5863 History and physical note Date of Service 12/20/2024 21:31:46 History of Present Illness 84-year-old male with history of frequent PVCs (14% burden--> 0.9%, on mexiletine), RBBB, hypertension, isolated AF event who presented to [facility] for concerns of syncopal episode in the [...] that correlated with the event. Workup at [place] was largely unremarkable however it was noted [...] data available. [1] Echocardiogram, Adult - CV; [facility] 12/05/2024 11:47 EST Digitally Signed by SHERLY WEINBERG MD on 12/21/2024 07:37 AM Digitally Signed by CHANNING TURNER MD on 12/21/2024 11:14 PM [facility]Zjzrwdpt37-39-8862 Note* Exam Date Time Procedure Performing Provider Status 12/20/24 8:26 PM Electrocardiogram - EKG - CV CHANNING TURNER MD; Auth (Verified) ECG Final Report SINUS RHYTHM RIGHT BUNDLE BRANCH BLOCK Electronic Signature: CHANNING TURNER MD 12/21/2024 18:53:25 [facility] EastDghhbjak65-17-6816 Evaluation + Plan noteExtracted from: Title:History and [...] Appointment Date:01/06/2025 01:00:00 PM Scheduled Provider: Location:[facility] Appointment Type:CV Incision Check Appointment Date:03/26/2025 10:30:00 AM Scheduled Provider: Location:[facility] Appointment Type:CV Office Procedure ICD Appointment Date:06/29/2025 08:45:00 AM Scheduled Provider: Location:[facility] Appointment Type:CV Remote Procedure [facility] 02-24-2025 Hospital Discharge instructions Patient Education 12/15/2024 [...] need to report the following to your esthetics instructor: Any draining or oozing from the site [...] Document Reviewed: 10/09/2014 ExitCare Patient Information 2015 BaseKit. This information is not intended to replace [...] the past. Discuss driving restrictions with your paper twister tender. FOLLOW UP Follow up with the Pacemaker [...] sends information from the device to your paper twister tender (heart doctor) office. How will I get [...] where you sleep. The monitor will automatically pick up operator heart signals and send the information to [...] you have questions. [facility]: [phone] Ask for the Device Clinic or christian-in extension 1111 or 1200 when prompted. Device Clinic Location: [facility] (not the physician office building). Enter the [facility] and take the elevators to the 2nd [...] Your device card will tell you the superintendent operating. Using the search box: EidoSearch: Otilia Communicator quick start oPatient Help: Medtronic: MyCareLink quick start oPatient Help: St [facility]ane (Bui): [email or web address] quick start oPatient Help: Other important information [...] Up Care 11/20/2024 15:32:23 With:INCISION CHECK Address: [address] [place] [address] [address] [place] [id number]- [phone] When:12/30/2024 11:00:00 With:NIKHIL ROSAS MD Address: [address] [place] [address]- [phone] When:03/02/2025 11:00:00 With:DEVICE CLINIC Address: [address] [place] [address]- [phone] When: Unknown With:NIKHIL ROSAS MD Address: [address] [place] [address]- [phone] When:03/12/2025 14:00:00 [facility] 02-24-2025 Summary of episode note Discharge Instructions Thank you for allowing [facility] to assist you with your healthcare needs. The following is importantdischarge information regarding your hospital visit. Your Care Team BRAYDEN BALDERRAMA MD What to do next Scheduled Follow-Up Appointments Appointment Type When With Where Contact Information StatusCV Incision Check 12/30/2024 11:00 AM EDT [facility] Confirmed CV OV 03/02/2025 11:00 AM EDT [facility] Procedure ICD 03/12/2025 01:30 PM EDT [facility] Confirmed CV OV 03/12/2025 02:00 PM EDT SANTIAGO ROSAS [facility] Confirmed Follow Up Appointments Follow Up with DEVICE CLINIC Where:[address] [facility] [address] [address]- [phone] Follow Up with INCISION CHECK When:12/30/2024 11:00 AM EDT Where:[address] [address]- [phone] Follow Up with NIKHIL ROSAS MD When:03/02/2025 11:00 AM EDT Where:[address] [address]- [phone] Follow Up with NIKHIL ROSAS MD When:03/12/2025 02:00 PM EDT Where:[address] [address]- [phone] The Following Activity and Diet Have Been [...] need to report the following to your esthetics instructor: Any draining or oozing from the site [...] Document Reviewed: 10/09/2014 ExitCare Patient Information 2015 BaseKit. This information is not intended to replace [...] the past. Discuss driving restrictions with your paper twister tender. FOLLOW UP Follow up with the Pacemaker [...] sends information from the device to your paper twister tender (heart doctor) office. How will I get [...] where you sleep. The monitor will automatically pick up operator heart signals and send the information to [...] you have questions. [facility]: [phone] Ask for the Device Clinic or christian-in extension 1111 or 1200 when prompted. Device Clinic Location: [facility] (not the physician office building). Enter the [place] lobby and take the elevators to the [...] Your device card will tell you the superintendent operating. Using the search box: EidoSearch: Lattitude Communicator quick start o Patient Help: Medtronic: MyCareLink quick start o Patient Help: [facility] (Bui): [email or web address] quick start o Patient Help: Other important [...] to receive it can visit one of [facility] vaccine clinics. There are many vaccine clinic locations within the [facility]. For locations and available times, please visit [email or web address].[place].gov/. It is important to note that some COVID mobile vaccine clinics are held outdoors and may be canceled in rainy or stormy conditions. To learn more about pediatric vaccinations (ages 5-11), we invite you to visit the [facility] webpage. https://www.[email or web address]/pages/[email or web address]-[email or web address]-Gtvvkviili-Dkjmf-Pwh stions.htmlTo learn more about the COVID-19 vaccine, we invite you to visit the CDC website for a list of frequently asked questions.https://www.cdc.gov/coronavirus/2019-ncov/vaccines/faq.html [facility] Patient Portal Access Instructions: Stay connected with your healthcare team and access your personal medical information anytime with the [facility] Patient Portal. Please follow the directions below to create your Proginet account: 1.Access the email account you provided upon registration to the hospital/physician office.2.Look for an invitation email from [facility].3.Open the email and access the invitation link: AcceptInvitation to [facility].4.Fill in the required marroquin to create your account. To access your account, visit Ab[facility]o/Healthy LabsOneChart. Click the blue button labeled Access Patient Portal and then log in with the username and password that you created in the steps above. You will be able to view your test results, lab results, a summary of your visits, upcoming appointments and more. There is also a convenient messaging option where you can send secure messages to your p General Fusionvider. In addition, you will have the ability to download any documents or summaries to your computer and/or send the information securely to a physician. Remember that your healthcare information is confidential, so carefully consider who you will allowto register on the [facility] Patient Portal for access to your information. You can also access the [facility] Patient Portal on the [facility] joão. Simply click on Patient Portal and then log into your account. If you would like to receive a full copy of your medical records, please contact the [facility] Medical Records Department by calling [phone], Sunday through Sunday between 8 a.m. and [...] Call your local pharmacy or go to [email or web address] to find one close to you.3.Make use of household items: Use cat litter or old coffee grounds to dispose medications if other options arenot available. Mix your drugs with these household products, seal them in an airtight container andthrow it into the garbage. Call [facility]: [phone] to be sure your drugs can be [...] that I should contact my d octor. 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 Visit on 5/6/24 ([facility]) PVC burden now <1%. Had 1 bad day on Sunday (dizzy, palpated PVCs) Visit on 09/14 ([facility]) Feels great . No sig PVCs per [...] intervals. sinus. Holter: (12/26/23) Unremarkable 1 day panel monitor. No significant arrhythmias were detected. PVC burden 0.92%. PVC Morphology - PM pap area (2,3,aVF rS, aVL positive) - outflow tract NM stress 08/10/23 IMPRESSION: No evidence of ischemia or infarction Normal LEFT ventricular ejection fraction. ECG portion will be dictated separately. Review of Systems Per [facility]'s OV note dated 09/01/24: Constitutional Symptoms: Denies [...] and Measurements No qualifying data available. Per [facility]'s OV note dated 09/01/24: General Appearance: Alert [...] data available. Digitally Signed by DIGNA LUCERO GRANULATOR OPERATOR-ENVIRONMENTAL PROTECTION ECONOMIST on 12/15/2024 09:00 AM [facility]Rqvayslm28-18-2082 Note ORIGINAL NM MYOCARDIAL SPECT STRESS/REST CLINICAL [...] PM Sign Date: 08/10/2023 4:46:29 PM Ordering Provider:[facility]04-29-[address] Santos [facility] February 18, 2023 1:26am Note Date/Time February 17, 2023 9:5 7pm [facility] Medical Records Department [address] [place] [address] Emergency Department Summary 02/17/23 MR#: [id number] Acct: [id number] Name: MAGUI TORRES Rep #:[id number] : 1940 83 From: Samm Lara PCP: [...] last 6 months. No estrogen use noted. [facility] Medical History (Updated 02/17/23 @ 23:44 by [...] (Auto) 67.7 Lymph % (Auto) 13.9 L [place] % (Auto) 16.3 H Eos % (Auto) [...] Color Urine Clarity Urine pH Ur Specific [place] Urine Protein Urine Glucose (UA) Urine Ketones [...] (Auto) Neut % (Auto) Lymph % (Auto) [place] % (Auto) Eos % (Auto) Baso % (Auto) Absolute Neuts (auto) Absolute Lymphs (auto) Nucleated RBC % Sodium Potassium Chloride Carbon Dioxide Anion Gap BUN Creatinine Estim Creat Clear Calc Est GFR (MDRD) Af Amer Est GFR (MDRD) Non-Af BUN/Creatinine Ratio Glucose Calcium Troponin I High Sens 30 B-Natriuretic Peptide Urine Color Yellow Urine Clarity Clear Urine pH 5.0 Ur Specific [place] 1.020 Urine Protein 100 H Urine Glucose [...] 23:25 EDT Reading Location ID and State: [facility] / [place] Tel , Service support , [...] your Primary Care Provider. Call [facility] ([phone]) or report to the closest Emergency Room. Call 911 if necessary. 02/18/23 0126 <Electronically signed by Samm Santos DO> Cosigner Signature (if applicable): CC: Dr. Brayden Balderrama MD ~ Signed [facility] Work Phone: Evaluation + Plan note No data available for this section [facility] Evaluation + Plan note Future Appointments Appointment [...] Provider:SANTIAGO ROSAS Location:[facility] Appointment Type:CV OV [facility] Evaludlvjz noteNo assessment information available [facility] Work Phone: Evaluation note* Diagnosis Onset Date Resolution Status Preop cardiovascular exam ac pilot point Essential (primary) hypertension chronic Hyperlipidemia chronic Paroxysmal atrial fibrillation chronic [facility] Work Phone: Evaluation note* Diagnosis Onset Date Resolution Status Preop cardiovascular exam ac pilot point Essential (primary) hypertension chronic Hyperlipidemia chronic Paroxysmal atrial fibrillation chronic Cancer acute [facility] Work Phone: Evaluation note* Diagnosis Onset Date Resolution Status Fracture of fourth toe, left, closed acute Fracture of second toe, left, closed acute [facility] Work Phone: Evaluation note* Diagnosis Onset Date Resolution Status Essential (primary) hypertension chronic Paroxysmal atrial fibrillation chronic [facility] Work Phone: Evaluation note* Diagnosis Onset Date Resolution Status Essential (primary) hypertension chronic Paroxysmal atrial fibrillation chronic Dental infection acute [facility] Work Phone: Hospital Discharge instructions No data available for this section [facility] Hospital Discharge instructions Additional Instructions Please continue to follow-up with cardiology at [facility]. Return for any worsening syncopal episodes. Maintain hydration, get up and change positions slowly.[facility] Work Phone: Hospital Discharge instructions Additional Instructions Follow-up with your primary care physician as well as your paper twister tender. Return back to the ED if symptoms change or worsen. Drink plenty of fluids over the next several days. Repeat your BMP in 2 days, prescription given.[facility] Work Phone: Progress note No data available for this section [facility] Reason for referral (narrative)No reason for referral information [facility] Work Phone: Family History No Family History [...] Date/ Time Name of Medical Power of Electronics Lead Codi Brian - May 10, 2022 4:40pm Living Will No May 10, 2022 4:40pm Power of Electronics Lead Yes May 10 4:40pm Advance Directive Response Recorded Date/ Time Living Will No May 10, 2022 3:40pm Power of Electronics Lead Yes May 10 3:40pm Advance Directive Response Recorded Date/ Time Name of Medical Power of Electronics Lead codi alo w ata February 17, 2023 9:58pm Living Will Yes February 17, 2023 9:58pm Power of Electronics Lead Yes February 17 9:58pm Advance Directive Response Recorded Date/ Time Living Will Yes February 17, 2023 8:58pm Power of Electronics Lead Yes February 17 8:58pm Advance Directive Response Recorded Date/ Time Living Will Yes October 06 024 8:47am Power of Electronics Lead Yes October 06, 2024 8:47am Name of Medical Power of Electronics Lead CODIGAYLE TORRES October 06, 2024 8:47am Living Will Yes December 20, 2024 12:23pm Power of Electronics Lead Yes December 20 12:23pm Name of Medical Power of Electronics Lead Codi DANG December 20, 2024 12:23pm Living Will Yes January 04, 2025 1:05pm Power of Electronics Lead Yes January 04 1:05pm Name of Medical Power of Electronics Lead DAUGHTER January 04, 2025 1:05pm Advance Directive Response Recorded Date/ Time Living Will Yes October 06 8:47am Do you have a Healthcare Power of Electronics Lead? Yes October 06, 2024 8:47am Name of Medical Power of Electronics Lead CODI TORRES October 06, 2024 8:47am Living Will Yes December 20, 2024 12:23pm Do you have a Healthcare Power of Electronics Lead? Yes December 20, 2024 12:23pm Name of Medical Power of Electronics Lead Codi DANG December 20, 2024 12:23pm Living Will Yes January 04, 2025 1:05pm Do you have a Healthcare Power of Electronics Lead? Yes January 04, 2025 1:05pm Name of Medical Power of Electronics Lead DAUGHTER January 04, 2025 1:05pm Living Will No January 12, 2025 2:06pm Do you have a Healthcare Power of Electronics Lead? No January 12, 2025 2:06pm Advance Directive Response Recorded Date/ Time Living Will Yes December 20, 2024 12:23pm Do you have a Healthcare Power of Electronics Lead? Yes December 20, 2024 12:23pm Name of Medical Power of Electronics Lead Codi DANG December 20, 2024 12:23pm Living Will Yes January 04, 2025 1:05pm Do you have a Healthcare Power of Electronics Lead? Yes January 04, 2025 1:05pm Name of Medical Power of Electronics Lead DAUGHTER January 04, 2025 1:05pm Living Will No January 12, 2025 2:06pm Do you have a Healthcare Power of Electronics Lead? No January 12, 2025 2:06pm Summary Purpose [...] Care Provider, Referring Provider Active Samuel Mark WELDER/FITTER, WELDER/FITTER-C Attending Provider Active Team Status: Inactive Member Role Status Dates Dr. Brayden Balderrama MD Primary Care Provider Active Dr. Samm Santos DO Attending Provider, Emergency P rovider Active Team Status: Inactive Member Role Status Dates Dr. Brayden Balderrama MD Primary Care Provider, Attending Provider Active Team Status: Inactive Member Role Status Dates Dr. Brayden Balderrama MD Primary Care Provider Active Marie Mukherjee WELDER/FITTER, WELDER/FITTER-C Attending Provider, Referring P rovider Active Team [...] section and content) DATE CREATED AUTHOR 08/13/2023 [facility] yannindation (DE) DATE CREATED AUTHOR AUTHOR'S ORGANIZ ATION 12/07/2024 [facility] DATE CREATED AUTHOR AUTHOR'S ORGANIZ ATION 01/05/2025 [facility] DATE CREATED AUTHOR AUTHOR'S ORGANIZ ATION 03/18/2025 [facility] FOR RECORDS PERTAINING TO PATIENTS WHO ARE [...] BE BASED ON THE PRIMARY CLINICAL RECORDS. [employer] provides no warranty or guarantee of the accuracy or completeness of information in this document.
[2025-05-30 13:24] LABS: Troponin T High Sens 2 HR 29 ng/L (<=22)
[2025-05-30 15:59] LABS: Troponin T High Sens 4 HR 27 ng/L (<=22)
--- NOTE | 2025-05-30 18:28 | HP.PCM.HOS_ITS ---
[facility] - General General Date of Admission: 05/30/25 Date of Service: 05/30/25 Chief Complaint: Right-sided weakness, syncope, right facial droop, dysarthria [facility] Narrative MAGUI TORRES, is a 85 M who presents to the emergency room at [facility] for evaluation of a period of syncope today lasted approximately 5 minutes, when the patient woke up he had some right-sided weakness and dysarthria, noted a facial droop also. Patient had no visual abnormalities and he did not have any left-sided weakness. Patient was taken to the emergency room at [facility], stroke team was called and imaging studies did not show an acute stroke. Patient has a pacemaker and an MRI is not able to be obtained. On arrival to the emergency room, patient was at his normal baseline. Labs obtained were unremarkable except for creatinine of 2.3, BUN of 31, and troponins were 28 and 29. Patient's pacemaker was interrogated and there were no untoward events according to the emergency room physician. It was recommended by teleneurology that the patient takes statin, be placed on 81 mg aspirin and take Plavix. Echocardiogram was recommended. Patient will be placed in observation status on PCU, I talked with his who was in the room at the time of my examination today. [facility] Medical History Cardiac defibrillator in place Hypothyroidism Kidney stones Kidney disease Former smoker Atrial fibrillation Acute hemorrhoid Kidney disease Loss of hearing Wears glasses Cancer Thyroid disease Arthritis Prostate disease History of renal disease Back pain Injury of head and neck Dietary restriction History of diverticulitis Heartburn Chewing tobacco nicotine dependence History of pain when walking Hypertension History of stress test Cardiology follow-up encounter History of echocardiogram Chest pain TIA (transient ischemic attack) GI bleed Paroxysmal atrial fibrillation Essential (primary) hypertension Hyperlipidemia Home Medications ?Medication ?Instructions ?Recorded ?Last Taken ?Type multivitamin 1 tab PO DAILY 07/26/18 Unkn own History saw palmetto 1,000 mg capsule 1,000 mg PO DAILY Unknown History cholecalciferol (vitamin D3) 25 50 mcg PO DAILY Unknown History mcg/drop (1,000 unit/drop) oral drops levothyroxine 50 mcg tablet 50 mcg PO DAILY 04/25/22 0 7/20/22 04:30 History magnesium 200 mg tablet 200 mg PO QWEEK 05/17/2304/15 History hydrochlorothiazide 12.5 mg capsule 12.5 mg PO DAILY 0 12/20/24 Unknown History metoprolol succinate 25 mg 12.5 mg PO DAILY 12/20/24 U nknown History tablet,extended release 24 hr mexiletine 200 mg capsule 200 mg PO BID 12/20/24 Unkno wn History Allergy/AdvReac Type Severity Reaction Status Date / Time animal dander Allergy unknown Verified 12/20/24 11:25 mold Allergy unknown Verified 12/20/24 11: pollen extracts Allergy unknown Verified 12/20/24 11:25 Milk Containing Products AdvReac Mild Abd Verified 12/20/24 15:51 (Dairy) cramps/diarrhea amoxicillin AdvReac Nausea/vomi Verified 12/20/24 11: ting lisinopril AdvReac Headaches Verified 12/20/24 11:25 Poultry AdvReac Abd Verified 12/20/24 15:51 cramps/diarrhea Family History Father Myocardial infarction from [place] age 56 Mother Heart disease CHF Grandfather Myocardial infarction from [place] age 53 Surgical History History of cholecystectomy History of nephrectomy Hx of colonoscopy Hx of hand surgery Hx laparoscopic cholecystectomy History of nasal septoplasty History of appendectomy Social History Smoking Status: Former smoker Smokeless tobacco user: chewing tobacco how long ago did patient quit smokin alcohol intake: never substance use type: does not use caffeine: Yes Type: coffee Number of servings: 2, tea Number of servings: 2 and other ROS Constitutional Constitutional: Denies anorexia, change in weight, chills, fatigue, fever(s), night sweats or weakness Eyes Eyes: Denies blurry vision, change in vision, discharge from eye(s) or eye pain Cardiovascular Cardiovascular: Denies chest pain, claudication, edema or palpitations Respiratory/Chest Respiratory/Chest: Denies cough, dyspnea, hemoptysis, shortness of breath at rest or shortness of breath with exertion Gastrointestinal Gastrointestinal: Denies abdominal pain, constipation, diarrhea, hematemesis, hematochezia, melena, nausea or vomiting Genitourinary Genitourinary: Denies dysuria, hematuria, urinary frequency, urinary hesitancy, urinary incontinence or urinary urgency Musculoskeletal Musculoskeletal: Denies back pain, joint pain, joint stiffness, joint swelling, myalgias or neck pain Neurologic Neurologic: Reports abnormal speech, focal weakness and syncope; Denies abnormal gait, dizziness, headache(s), loss of vision, numbness, other visual disturbances, paresthesias or tingling Psychiatric Psychiatric: Denies anxiety, cognitive impairment, depression, irritability, mood swings or suicidal ideation Endocrine Endocrinology: Denies change in body appearance, cold intolerance, excessive sweating, heat intolerance, polydipsia or polyuria Hematologic/Lymphatic Hematologic/Lymphatic: Denies none, anemia, easy bleeding, easy bruising or lymphadenopathy Allergic/Immunologic Allergic/Immunologic: Denies rhinitis, urticaria, eczemia or asthma Vital Signs Vital Signs Vital Signs: 05/30/25 10:39 05/30/25 10:41 05/30/25 10:51 Temperature 97.9 F Temperature Source Oral Pulse Rate Respiratory Rate Respiratory Effort Respiratory Depth Respiratory Pattern Blood Pressure Blood Pressure Mean Blood Pressure Source Blood Pressure Position Blood Pressure Location Pulse Ox 96 97 Oxygen Delivery Method Room Air Room Air 05/30/25 11:11 05/30/25 12:00 05/30/25 12:00 Temperature Temperature Source Pulse Rate 62 64 64 Respiratory Rate 16 17 17 Respiratory Effort Respiratory Depth Respiratory Pattern Blood Pressure 151/82 H 133/73 H 133/73 H Blood Pressure Mean 105 93 93 Blood Pressure Source Blood Pressure Position Blood Pressure Location Pulse Ox 100 100 100 Oxygen Delivery Method Room Air Room Air Room Air 05/30/25 12:49 05/30/25 13:28 05/30/25 14:03 Temperature 97.6 F L 97.7 F L Temperature Source Oral Pulse Rate 65 65 Respiratory Rate 12 14 Respiratory Effort Normal Non-Labored Respiratory Depth Normal Respiratory Pattern Normal Blood Pressure 154/70 H 166/83 H Blood Pressure Mean 98 110 Blood Pressure Source Monitor Blood Pressure Position Semi-Fowlers Blood Pressure Location Right Arm Pulse Ox 100 99 Oxygen Delivery Method Room Air Room Air 05/30/25 15:20 05/30/25 17:15 Temperature 98.9 F Temperature Source Oral Pulse Rate 72 Respiratory Rate 14 Respiratory Effort Respiratory Depth Respiratory Pattern Blood Pressure 159/84 H Blood Pressure Mean 109 Blood Pressure Source Monitor Blood Pressure Position Semi-Fowlers Blood Pressure Location Right Arm Pulse Ox 100 Oxygen Delivery Method Room Air Room Air Weight Weight: 72 kg Body Mass Index (BMI) 22.7 Physical Exam Const alert, oriented x3, no apparent distress and healthy appearing General Appearance: cooperative, well kempt and well developed Orientation / Consciousness: awake, oriented to person, oriented to place and oriented to time HEENT normocephalic, head/scalp atraumatic, hearing grossly normal bilaterally and moist oral mucous membranes Eyes PERRL, EOMs intact bilaterally and conjunctivae normal Neck supple, no JVD, thyroid normal and no carotid bruits General: trachea midline Resp normal respiratory effort, no retractions, no use of accessory muscles and clear to auscultation bilaterally Auscultation: Negative for rales, rhonchi or wheezes Cardio regular rate, regular rhythm, no rub and no gallops Cardio Narrative: 2/6 systolic murmur is noted, patient has a paced rhythm GI normal to inspection, nondistended, normoactive bowel sounds, soft to palpation, non-tender and non-distended Extremity no clubbing, cyanosis or edema Skin no rashes or lesions noted General Skin Exam: no breakdown Neuro oriented x3, CN's II-XII intact bilaterally, no focal motor deficits and no sensory deficits noted Sensorium / Orientation: awake and alert Speech: speech normal Psych affect normal Results Lab / Micro Data 05/30/25 10:42 05/30/25 10:42 Labs: Laboratory Results - last 24 hr 05/30/25 10:42: WBC 9.4, RBC 4.82, Hgb 14.5, Hct 43.5, MCV 90.2, MCH 30.1, MCHC 33.3, RDW Std Deviation 44.4 H, RDW Coeff of Jd 13.4, Plt Count 240, MPV 9.9, Immature Gran % (Auto) 0.500, Neut % (Auto) 53.2, Lymph % (Auto) 30.9, [place] % (Auto) 11.0 H, Eos % (Auto) 3.5, Baso % (Auto) 0.9, Absolute Neuts (auto) 5.0, Absolute Lymphs (auto) 2.89, Nucleated RBC % 0, PT 13.6, INR 1.0, APTT 26.4, Sodium 137, Potassium 4.5, Chloride 103, Carbon Dioxide 17.8 L, Anion Gap 16 H, BUN 31 H, Creatinine 2.30 H, Estim Creat Clear Calc 24.09 L, Est GFR (MDRD) Non- Af 27 L, BUN/Creatinine Ratio 13.3, Glucose 107 H, Calcium 9.3, Troponin T High Sens 28 H D 05/30/25 12:47: Troponin T Hi Sens 2 Hr 29 H 05/30/25 15:30: Troponin T Hi Sens 4Hr 27 H Rhythm Strip Rhythm Strip: Paced Rate: 86 Ectopy: None Imaging Radiology Impression Brain CT 05/30/25 10:41 IMPRESSION: 1. No evidence of intracranial hemorrhage or acute ischemia. 2. Changes of chronic microvascular ischemia and volume loss. Findings and impression of this report were called directly to Dr. Hernandez at 10:55 am (Eastern standard time). Reading Location: [facility] Head/Neck CTA 05/30/25 10:50 IMPRESSION: 1. No large vessel occlusion. 2. No aneurysm. 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 3. Less than 50% stenosis right internal carotid artery and less than 25% stenosis left internal carotid artery. Reading Location: [facility] Assessment & Plan Assessment/Plan (1) Brain TIA: PLAN: Plan 1. TIA-patient was placed in observation status on PCU, NIH scores will be monitored, patient refuses to take a statin, he has agreed to take aspirin and Plavix. Patient does not want to stay in the hospital until Sunday for possible MRI, he would prefer that I reorder his CT of the brain tomorrow to see if any abnormality would show up. Patient also does not want to stay on Sunday to get an echocardiogram. #2 essential hypertension-patient will remain on his home medications #3 hyperlipidemia-again patient does not want to take a statin due to fears of myalgias, I did bring up the possibility of putting him on a combination of Zetia and bempedoic acid. #4 cardiac arrhythmias-patient is on mexiletine Total clinical time spent by myself addressing the patient's medical issues, reviewing all of his data, and collaborating with patient's care team: 55 minutes Charges/Coding Visit Charges Inpatient E&M: 32264 Init Hosp L2
[2025-05-30] MEDS: Heparin Injection (Vial) 5,000 UNIT/ML VIAL 5000 UNIT SC (21:05)
[2025-05-31 01:00] VITALS: BP 124/82; PULSE 69; RESP 16; TEMP 36.5; O2SAT 99
[2025-05-31 01:24] VITALS: BMI 22.7
[2025-05-31 05:00] VITALS: BP 155/91; PULSE 69; RESP 16; TEMP 36.7; O2SAT 97
[2025-05-31 07:25] LABS: Cholesterol 191 mg/dL (<=200); Low Density Lipoprotein Calc. 132 mg/dL; Triglycerides 87 mg/dL; Very Low Density Lipoprotein 17 mg/dL (5-40); cholesterol:hdl ratio screen 4.64
--- NOTE | 2025-05-31 08:12 | CT_ITS ---
PROCEDURE: BRAIN/HEAD WITHOUT CONTRAST 05/31/2025 REASON FOR EXAM: TIA TECHNIQUE: BRAIN/HEAD WITHOUT CONTRAST Coronal and Sagittal reconstruction series were provided. One or more dose reduction techniques were used (e.g., Automated exposure control, adjustment of the mA and/or kV according to patient size, use of iterative reconstruction technique. RADIATION DOSE SUMMARY: CTDlvol: 44.99 mGy DLP: 829.85 mGycm COMPARISON: CT head May 30, 2025. FINDINGS: Brain: Extensive low density in the deep cerebral white matter most likely represents advanced chronic small vessel ischemic disease. No acute territorial infarction. No intracranial hemorrhage. No mass-effect or midline shift. CSF Spaces: Advanced generalized cerebral atrophy Sinuses/Mastoids: Clear at visualized levels Bones: No acute bony abnormalities. CT/Brain/Head without Contrast IMPRESSION: No acute intracranial hemorrhage. Reading Location: [id number]
[2025-05-31 09:22] VITALS: BP 169/95; PULSE 80; RESP 16; TEMP 36.1; O2SAT 100
[2025-05-31 09:29] VITALS: PULSE 80
[2025-05-31] MEDS: Metoprolol(XL)Succ 25 MG Tablet 12.5 MG PO (09:29)
[2025-05-31] MEDS: Cholecalciferol (VIT D3) 25 MCG TABLET (1,000 UNITS) 50 MCG PO (09:29)
[2025-05-31] MEDS: Heparin Injection (Vial) 5,000 UNIT/ML VIAL 5000 UNIT SC (09:29)
--- NOTE | 2025-05-31 09:46 | PN.NEURO_ITS ---
Objective Data Objective Data Vital Signs: Vital Signs Temp Pulse Resp BP Pulse Ox O2 Del Method 97 F L 80 16 169/95 H 100 Room Air 05/31/25 09:22 05/31/25 09:29 05/31/25 09:22 05/31/25 09:22 05/31/25 09:22 05/31/25 09:22 Oxygen Delivery Method Room Air Weight: 72 kg Body Mass Index (BMI) 22.7 Intake & Output: Intake and Output for Last 24 Hours 05/29/25 05/30/25 05/31/25 23:59 23:59 23:59 Intake Total 120 / 120 0 / 0 Balance 120 / 120 0 / 0 Lab / Micro Data 05/30/25 10:42 05/30/25 10:42 Labs: Laboratory Results - last 24 hr 05/30/25 10:42: WBC 9.4, RBC 4.82, Hgb 14.5, Hct 43.5, MCV 90.2, MCH 30.1, MCHC 33.3, RDW Std Deviation 44.4 H, RDW Coeff of Jd 13.4, Plt Count 240, MPV 9.9, Immature Gran % (Auto) 0.500, Neut % (Auto) 53.2, Lymph % (Auto) 30.9, [place] % (Auto) 11.0 H, Eos % (Auto) 3.5, Baso % (Auto) 0.9, Absolute Neuts (auto) 5.0, Absolute Lymphs (auto) 2.89, Nucleated RBC % 0, PT 13.6, INR 1.0, APTT 26.4, Sodium 137, Potassium 4.5, Chloride 103, Carbon Dioxide 17.8 L, Anion Gap 16 H, BUN 31 H, Creatinine 2.30 H, Estim Creat Clear Calc 24.09 L, Est GFR (MDRD) Non- Af 27 L, BUN/Creatinine Ratio 13.3, Glucose 107 H, Calcium 9.3, Troponin T High Sens 28 H D 05/30/25 12:47: Troponin T Hi Sens 2 Hr 29 H 05/30/25 15:30: Troponin T Hi Sens 4Hr 27 H 05/31/25 05:17: Triglycerides 87, Cholesterol 191, LDL Cholesterol, Calc 132, VLDL Cholesterol 17, HDL Cholesterol 41, Cholesterol/HDL Ratio 4.64 Radiography Diagnostic Testing: Radiology Impression Brain CT 05/30/25 10:41 IMPRESSION: 1. No evidence of intracranial hemorrhage or acute ischemia. 2. Changes of chronic microvascular ischemia and volume loss. Findings and impression of this report were called directly to Dr. Hernandez at 10:55 am (Eastern standard time). Reading Location: [facility] Head/Neck CTA 05/30/25 10:50 IMPRESSION: 1. No large vessel occlusion. 2. No aneurysm. 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 3. Less than 50% stenosis right internal carotid artery and less than 25% stenosis left internal carotid artery. Reading Location: [id number] Brain CT 05/31/25 08:12 IMPRESSION: No acute intracranial hemorrhage. Reading Location: [facility] Rhythm Strip Rhythm Strip: Paced Rate: 86 Ectopy: None Physical Exam Neuro Neuro Narrative: Neurological?examination: General: The patient appears nutritionally appropriate, well-groomed, and appears comfortable in no acute distress. Mental Status: ?The patient?s mental status was normal including orientation. ?Language was intact. ?Cranial nerves: ?No visual complaints, and extra-ocular motion was intact. Face motion symmetric. Tongue was midline with normal movement. ?There was no dysarthria. Motor: Normal strength in all four extremities. No pronator drift. Sensation: Intact light touch bilaterally, no extinction. ?Coordination: ?Bilateral finger to nose was normal. ?There was no dysmetria. Gait: ?deferred Subject: Neurology Subjective No acute events. Patient feels at baseline. EEG Results Procedure Details EEG Procedure Details: F Assessment and Plan: Stroke Assessment/Plan MAGUI TORRES is a 85 M with a history of PAfib (diagnosed 20 years) on no AC/anti-platelets, HTN, HL, prior TIA, s/p PPM (not MRI compatible) who on 05/30/2025 was found down by his unresponsive. When he came to, noted dysarthria and right sided weakness. Patient taken to [facility] where he reports he still had mild right sided weakness, which then resolved in ER. Episode lasted ~ [address] brain negative. CTA head/neck shows left V4 stenosis, otherwise negative. He was started on Asa/plavix and admitted for TIA work-up. LDL 132. Neurological examination shows nonfocal exam. NIHSS-0 ASSESSMENT/PLAN: TIA 1) TIA work-up completed. TIA mechanism is likely cardioembolism due to Afib. Recommend starting NOAC (Eliquis), but patient declines and wants to discuss with his outpatient veterinarian poultry. In meanwhile, patient agreeable to Asa/plavix. 2) Continue anti-platelet medication (Asa/plavix) for now as patient defers AC. Recommend discuss with veterinarian poultry and if agrees to start eliquis, then stop Asa/plavix when on AC. 3) Continue vascular risk factor modification. Recommend starting lipitor for LDL 132, but patient declines and will discuss with his veterinarian poultry. 4) Follow-up in outpatient neurology clinic Primary team messages my recs on backline. Yany Varghese MD NIHSS NIHSS Nursing Documentation NIHSS Nursing Documentation: NIHSS: Ischemic Stroke/TIA Start: 05/30/25 13:10 Text: For PCU Patients: NIH and Neuro Check every 4 Status: Active hours, PRN and with change in RN caregiver. Freq: [id number] Protocol: Activity Type Activity Date Activity User E-sign Co-sign Detail Recorded Client Recorded Date Recorded By Document 05/31/25 09:24 KJ [id number] 05/31/25 09:26 KJ 05/31/25 09:24 NIH Stroke Scale [NIHSS] A score of 0 is normal or asymptomatic . Total possible score is 42. Inpatient: RN or Physician to activate a stroke alert for onset of new stroke symptoms or with NIHSS increase >/= 3 points. Following change in neurological status, NIHSS will be performed per physician order or more frequently PRN. -1a. Level of Consciousness 0 - Alert; keenly responsive -1b. LOC Questions 0 - Answers BOTH questions correctly -1c. LOC Commands 0 - Performs BOTH tasks correctly -2. Best Gaze 0 - Normal -3. Visual 0 - No visual loss -4. Facial Palsy 0 - Normal symmetrical movements -5a. Left Arm 0 - No drift; arm holds 90 ( or 45) degrees for full 10 seconds -5b. Right Arm 0 - No drift; arm holds 90 ( or 45) degrees for full 10 seconds -6a. Left Leg 0 - No drift; leg holds 30- degree position for full 5 seconds -6b. Right Leg 0 - No drift; leg holds 30- degree position for full 5 seconds -7. Limb Ataxia 0 - Absent -8. Sensory 0 - Normal; no sensory loss -9. Best Language 0 - No aphasia; normal -10. Dysarthria 0 - Normal -11. Extinction and Inattention 0 - No abnormality -Total 0 Query Text:A score of 0 is normal or asymptomatic. Total possible score is 42 . ED: Notify Physician for NIHSS increase by > / = 3 points. Inpatient: RN or Physician to activate a stroke alert for NIHSS increase of > / = 3 points. Coma Scale [Assess] -Eye Opening Spontaneous -Motor Obeys Commands -Verbal Oriented [Total] -Coma Scale Total 15 NIHSS 1a. Level of Consciousness: 0 - Alert; keenly responsive 1b. LOC Questions: 0 - Answers BOTH questions correctly 1c. LOC Commands: 0 - Performs BOTH tasks correctly 2. Best Gaze: 0 - Normal 3. Visual: 0 - No visual loss 4. Facial Palsy: 0 - Normal symmetrical movements 5a. Left Arm: 0 - No drift; arm holds 90 (or 45) degrees for full 10 seconds 5b. Right Arm: 0 - No drift; arm holds 90 (or 45) degrees for full 10 seconds 6a. Left Le - No drift; leg holds 30-degree position for full 5 seconds 6b. Right Le - No drift; leg holds 30-degree position for full 5 seconds 7. Limb Ataxia: 0 - Absent 8. Sensory: 0 - Normal; no sensory loss 9. Best Language: 0 - No aphasia; normal 10. Dysarthria: 0 - Normal 11. Extinction and Inattention: 0 - No abnormality Total: 0
[2025-05-31 10:20] VITALS: BMI 22.7
--- NOTE | 2025-05-31 11:58 | DCINST_ITS ---
Discharge Instructions DC O2, CPAP, BIPAP needs Home O2 Discharge instructions: No Dressing / Incision Discharge Activity: Return to Normal Activity Weight Bearing Status: Full weight bearing Follow Up Care Test Results: Test results from this visit will be discussed in further detail at your follow- up appointment, if applicable. Discharge Plan Admission Admit Date/Time: 05/30/25 12:15 Primary Reason for Your Visit: TIA Attending Provider: Dustin Swan Primary Care Provider: Brayden Balderrama Consulting Providers: Noé Mishra; Yesenia Velasquez; Amberly Chanel; Doretha Nichols; Nilda Owen; Juice La; Mary Montelongo; Ari Cote; Rey Vargas; Guido Hurst; Lisa Leavitt; Sean Bush; Mary Lou Stewart; Cortney Scott; Lorenzo Dennis; Chuy Yoon; Jes Lock; Bakari Henriquez; Yany Varghese; Marion Guardado Discharge Orders/Prescriptions Prescriptions: New clopidogrel 75 mg Tablet 75 mg PO DAILY Qty: 21 0RF Rx Instructions: Take for 21 days then discontinue medication Continued saw palmetto 1,000 mg capsule 1,000 mg PO DAILY multivitamin tablet 1 tab PO DAILY cholecalciferol (vitamin D3) 25 mcg/drop ( 1,000 unit/drop) drops 50 mcg PO DAILY levothyroxine 50 mcg tablet 50 mcg PO DAILY Patient Comments: take 1 tablet by mouth every morning magnesium 200 mg tablet 200 mg PO QWEEK metoprolol succinate 25 mg tablet extended release 24 hr 12.5 mg PO DAILY hydrochlorothiazide 12.5 mg capsule 12.5 mg PO DAILY mexiletine 200 mg capsule 200 mg PO BID Referrals / Follow Up: Brayden Balderrama MD [Primary Care Provider] - Within 2 Weeks Disposition Disposition (needs filled in before D/C Order can be placed): Home, Self Care
--- NOTE | 2025-05-31 12:00 | PCM.DC.SUM ---
Providers Date of Admission: 05/30/25 Date of Discharge: 05/31/25 Primary Care Physician: Dr. Brayden Balderrama MD Consultations 05/30/25 13:10 Consult: Tele-Neurology Routine Consulting Provider: [facility] Reason for Consult: Acute Ischemic Stroke/TIA EMERGENT Consult: No MD Notified: Yes Date Notified: 05/30/25 Time Notified: 15:03 Method of Notification: Answering Service Nursing Unit Staff Notify [facility] of Tele-Neurology Consult: Yes Reason For Visit: TIA Diagnosis Discharge Diagnosis (1) Brain TIA: Status: Acute Code(s): G45.9 - Transient cerebral ischemic attack, unspecified Plan 1. TIA-patient was placed in observation status on PCU, NIH scores will be monitored, patient refuses to take a statin, he has agreed to take aspirin and Plavix. Patient does not want to stay in the hospital until Sunday for possible MRI, he would prefer that I reorder his CT of the brain tomorrow to see if any abnormality would show up. Patient also does not want to stay on Sunday to get an echocardiogram. #2 essential hypertension-patient will remain on his home medications #3 hyperlipidemia-again patient does not want to take a statin due to fears of myalgias, I did bring up the possibility of putting him on a combination of Zetia and bempedoic acid. #4 cardiac arrhythmias-patient is on mexiletine Total clinical time spent by myself addressing the patient's medical issues, reviewing all of his data, and collaborating with patient's care team: 55 minutes Medications at Discharge Home Medications multivitamin 1 tab PO DAILY 07/26/18 saw palmetto 1,000 mg capsule 1,000 mg PO DAILY 07/26/18 cholecalciferol (vitamin D3) 25 mcg/drop (1,000 unit/drop) oral drops 50 mcg PO DAILY 04/25/22 levothyroxine 50 mcg tablet 50 mcg PO DAILY 04/25/22 magnesium 200 mg tablet 200 mg PO QWEEK 05/17/23 hydrochlorothiazide 12.5 mg capsule 12.5 mg PO DAILY 12/20/24 metoprolol succinate 25 mg tablet,extended release 24 hr 12.5 mg PO DAILY 12/20/24 mexiletine 200 mg capsule 200 mg PO BID 12/20/24 clopidogrel 75 mg tablet 75 mg PO DAILY #21 tabs 05/31/25 Hospital Course Operations None Procedures None Summary of Care Provided Minutes Spent on Discharge: 31 Hospital Course: This 85-year-old white male was seen in the emergency room at [facility] with complaints of right facial droop, right arm weakness, and slurred speech. This episode occurred briefly at home. Patient states he was trying to go to the restroom felt lightheaded and went down on the floor of his home. When squad arrived to transport the patient, stated that the patient had slurred speech and right-sided weakness, the symptoms resolved by the time the patient was taken to the emergency room for evaluation. Stroke team was called in the emergency room, patient's NIH score was 0, imaging studies did not detect an acute event. Patient was placed in observation status on PCU and seen by PT, OT, speech, and teleneurology. 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 Patient was agreeable to taking aspirin and Plavix. It was also recommended that the patient start Lipitor, patient refused stating he wanted to talk with his photo mask processor about alternate medications for cholesterol due to a history of muscle pain with a statin in the past. Patient also did not want to stay in the hospital to have an echocardiogram done on 06/01/2025. On 05/31/2025, patient was seen and examined: On examination he appeared in good health and spirits. Vital signs as documented. Skin warm and dry and without overt rashes. Neck without JVD, neck was supple, trachea midline, thyroid was normal. Lungs clear bilaterally, normal air movement was noted. Heart exam notable for regular rhythm, normal sounds and absence of murmurs, rubs or gallops. Abdomen unremarkable and without evidence of organomegaly, masses, or abdominal aortic enlargement. Bowel sounds are present, abdomen is not distended. Extremities nonedematous, no cyanosis was noted, no clubbing was noted. Neuro: Cranial nerves II through XII are grossly intact, no focal motor deficits were noted, sensation to light touch and pinprick intact, motor exam 5/5 throughout. Psych: Patient is alert and oriented x3, he does not appear anxious or depressed, he does not appear agitated. Patient was discharged home in stable condition on 05/31/2025 Weight / BMI Weight Weight: 72 kg Body Mass Index (BMI) 22.7 ABG / Lab / Microbiology Data 05/30/25 10:42 05/30/25 10:42 Laboratory: Laboratory Results - last 24 hr 05/30/25 12:47: Troponin T Hi Sens 2 Hr 29 H 05/30/25 15:30: Troponin T Hi Sens 4Hr 27 H 05/31/25 05:17: Triglycerides 87, Cholesterol 191, LDL Cholesterol, Calc 132, VLDL Cholesterol 17, HDL Cholesterol 41, Cholesterol/HDL Ratio 4.64 Radiography Diagnostic Testing: Radiology Impression Brain CT 05/31/25 08:12 IMPRESSION: No acute intracranial hemorrhage. Reading Location: [id number]/C Instructions Weight Bearing Status: Full weight bearing DC O2, CPAP, BIPAP Needs Home O2 Discharge instructions: No Meaningful Use Info Meaningful Use Meaningful Use Diagnoses (Choose all that apply): None applicable Discharge Plan Admission Admit Date/Time: 05/30/25 12:15 Primary Reason for Your Visit: TIA Attending Provider: Dustin Swan Primary Care Provider: Brayden Balderrama Consulting Providers: Noé Mishra; Yesenia Velasquez; Amberly Chanel; Doretha Nichols; Nilda Owen; Juice La; Mary Montelongo; Ari Cote; Rey Vargas; Guido Hurst; Lisa Leavitt; Sean Bush; Mary Lou Stewart; Cortney Scott; Lorenzo Dennis; Chuy Yoon; Jes Lock; Bakari Henriquez; Yany Varghese; Marion Guardado Discharge Orders/Prescriptions Prescriptions: New clopidogrel 75 mg Tablet 75 mg PO DAILY Qty: 21 0RF Rx Instructions: Take for 21 days then discontinue medication Continued saw palmetto 1,000 mg capsule 1,000 mg PO DAILY multivitamin tablet 1 tab PO DAILY cholecalciferol (vitamin D3) 25 mcg/drop ( 1,000 unit/drop) drops 50 mcg PO DAILY levothyroxine 50 mcg tablet 50 mcg PO DAILY Patient Comments: take 1 tablet by mouth every morning magnesium 200 mg tablet 200 mg PO QWEEK metoprolol succinate 25 mg tablet extended release 24 hr 12.5 mg PO DAILY hydrochlorothiazide 12.5 mg capsule 12.5 mg PO DAILY mexiletine 200 mg capsule 200 mg PO BID Referrals / Follow Up: Brayden Balderrama MD [Primary Care Provider] - Within 2 Weeks Disposition Disposition (needs filled in before D/C Order can be placed): Home, Self Care Charges/Coding Visit Charges Inpatient E&M: 32880 Disch Hosp >30min
== END 2025-05-31 12:00 | disposition home or self-care (01) ==
LOC: ED 12:40 → PCU 12:42
PROVIDERS: Admitting Provider Internal Medicine; Emergency Provider Emergency Medicine; PCP Family Medicine; Visit Provider Internal Medicine
DX: G45.9 Transient cerebral ischemic attack, unspecified (principal); I48.0 Paroxysmal atrial fibrillation; I12.9 Hypertensive chronic kidney disease with stage 1 through stage 4 chronic kidney disease, or unspecified chronic kidney disease; N18.9 Chronic kidney disease, unspecified; E78.5 Hyperlipidemia, unspecified; R29.700 NIHSS score 0; E03.9 Hypothyroidism, unspecified; M19.90 Unspecified osteoarthritis, unspecified site; Z95.810 Presence of automatic (implantable) cardiac defibrillator; Z87.891 Personal history of nicotine dependence; Z79.899 Other long term (current) drug therapy; Z79.82 Long term (current) use of aspirin; Z86.73 Personal history of transient ischemic attack (TIA), and cerebral infarction without residual deficits
CPT/HCPCS: 36415; 70450; 70496; 70498; 80048; 80061; 84484; 85025; 85610; 85730; 93005; 96372; 97802; 99221; 99285; Q9967; A4216; G0378

== ENCOUNTER → 2025-06-05 | Outpatient (CLI) | payer MEDICARE, SELFPAY ==
[2025-06-05 15:27] LABS: Hematocrit 44.3 % (40-54); Hemoglobin 14.6 g/dL (13.0-16.5); Immature Granulocytes Count 0.040 X10^3/uL (0.0-0.0); Mean Corp Hgb Conc 33.0 g/dL (32-36); Mean Corpuscular Volume 90.2 fL (80-94); Mean Platelet Vol. 10.0 fl (6.2-12.0); NRBC Flagged by Analyzer 0 % (0-5); Platelet Count 285 K/mm3 (150-450); RBC Distribution Width CV 14.0 % (11.6-14.6); RBC Distribution Width SD 46.4 fl (35.1-43.9); Red Blood Count 4.91 M/mm3 (4.6-6.2); White Blood Count 10.5 K/mm3 (4.4-11.0)
[2025-06-05 15:54] LABS: Anion Gap 12 (5-15); BUN 34 mg/dL (4-19); BUN/Creat Ratio 16.3 RATIO (10-20); Calcium,Total 9.4 mg/dL (7.6-11.0); Carbon Dioxide 24.4 mmol/L (21.0-32.0); Chloride 103 mmol/L (98-108); Glucose 109 mg/dL (70-99); Potassium 4.3 mmol/L (3.3-5.1)
== END | disposition home or self-care (01) ==
LOC: MFPLAB 11:45
PROVIDERS: PCP Family Medicine; Visit Provider Family Medicine
DX: R53.83 Other fatigue (principal)
CPT/HCPCS: 36415; 80048; 85025

== ENCOUNTER → 2025-07-02 | Outpatient (CLI) | payer MEDICARE, SELFPAY ==
[2025-07-02 18:20] LABS: Anion Gap 12 (5-15); BUN 36 mg/dL (4-19); BUN/Creat Ratio 17.5 RATIO (10-20); Calcium,Total 9.0 mg/dL (7.6-11.0); Carbon Dioxide 23.2 mmol/L (21.0-32.0); Chloride 106 mmol/L (98-108); Free T3 2.4 pg/mL (2.18-3.98); Glucose 91 mg/dL (70-99); Potassium 4.4 mmol/L (3.3-5.1)
== END | disposition home or self-care (01) ==
LOC: MFPLAB 14:47
PROVIDERS: PCP Family Medicine; Visit Provider Family Medicine
DX: N18.9 Chronic kidney disease, unspecified (principal); E03.9 Hypothyroidism, unspecified
CPT/HCPCS: 36415; 80048; 84439; 84443; 84481